=== PATIENT | male | born 1950 | race Caucasian/White ===

== ENCOUNTER → 2016-08-01 | Outpatient (CLI) | payer MEDICARE, MEDICAID ==
[~2016-08-01] MED LIST: ACET325T38 PO; ALPR1T PO; ANXIETY MED; CIPR500T78 PO; CYCL10TA9 PO; DCS100C PO; HYDR-3816 PO; NAPR550T PO; NF-ESOM40C PO; ONDA4TAB2 PO; PHEN200T27 PO; PREG75CA; SILO8CAP PO; SULF1TAB23 PO; TAMS0.4C2 PO; [UNRECOGNIZED DRUG - CODE] IV
[2016-08-01 09:48] LABS: BLOOD UREA NITROGEN 11 MG/DL (7-18); BUN/CREATININE RATIO 12; CREATININE SERUM 0.91 MG/DL (0.60-1.30); GFR ESTIMATED > 60
--- NOTE | 2016-08-01 12:15 | Diagnostic Imaging Report ---
PROCEDURE: CT abdomen and pelvis with contrast. TECHNIQUE: Multiple contiguous axial images were obtained through the abdomen and pelvis after administration of intravenous contrast. INDICATION: Mid abdominal pain. 100 mL of Omnipaque 350 is administered intravenously. FINDINGS: When compared to 10/12/2013, similar subsegmental scarring in the left lung base is seen. The liver demonstrate diffuse steatosis. Surgical clips near the left hepatic lobe undersurface area is seen. Correlate with surgical history. The gallbladder, the pancreas, the spleen, and the adrenals demonstrate no significant abnormality. The kidneys have symmetric enhancement and contrast excretion. There is a fat density lesion in the lower pole of the left kidney measuring 1.3 cm similar to the previous exam compatible with angiomyolipoma. No hydronephrosis. The abdominal aorta is normal in caliber. Normal variation of direct origin of the left gastric artery from the abdominal aorta is seen. There is a tiny fat-containing umbilical hernia. Small to moderate amounts of fecal material seen in the colon. The appendix is normal. The urinary bladder demonstrates mild wall thickening. Correlate for possible cystitis. The osseous structures demonstrate mild degenerative changes in the lumbar spine and SI joints. IMPRESSION: 1. Diffuse hepatic steatosis. 2. Tiny fat-containing hernia. 3. Mild urinary bladder wall thickening. Correlate for possible cystitis. Dictated by: Dictated on workstation # [id number]
== END ==
LOC: RAD 09:17
PROVIDERS: ATTEND Surgery
DX: K76.0 Fatty (change of) liver, not elsewhere classified (principal); N32.9 Bladder disorder, unspecified
CPT/HCPCS: 36415; 74177; 82565; 84520

== ENCOUNTER → 2018-05-21 | Outpatient (CLI) | payer MEDICARE, MEDICAID ==
--- NOTE | 2018-05-21 10:51 | Diagnostic Imaging Report ---
INDICATION: 67-year-old male with osteoarthritis and elbow fracture as adult. Personal risk factors at high risk for osteoporosis. History of colon cancer. History of long-term proton pump inhibitor use. COMPARISON: None. FINDINGS: AP Spine L1-L4: [BMD (g/cm2): 1.174] [T-Score: -0.5] [Z-Score: -0.8] [BMD Previous: na] [BMD % Change: na] LT Hip Neck: [BMD (g/cm2): 0.983] [T-Score: -0.7] [Z-Score: 0.0] LT Hip Total: [BMD (g/cm2):1.157] [T-Score:0.4] [Z-Score: 0.6] [BMD Previous: na] [BMD % Change: na] RT Hip Neck: [BMD (g/cm2):0.928] [T-Score:-1.1] [Z-Score:-0.4] RT Hip Total: [BMD (g/cm2):1.136] [T-score:0.2] [Z-Score:0.4] [BMD Previous:na] [BMD % Change:na] *Indicates significant change from prior examination based on 95% confidence level. World Health Organization criteria for BMD interpretation classify patients as Normal (T-score at or above -1.0), Osteopenic (T-score between -1.0 and -2.5) or Osteoporotic (T-score at or below -2.5). LIMITATIONS AND MODIFICATION: None. FRACTURE RISK (FRAX SCORE): The ten year probability of (%): Major Osteoporotic Fracture: [5.5] Hip Fracture: [0.7] IMPRESSION: 1. Osteopenia (Low bone mass). 2. Baseline examination. 3. See below National Osteoporosis Foundation guidelines on when to potentially initiate pharmacologic therapy. Based on the National Osteoporosis Foundation Guidelines, pharmacologic treatment should be initiated in any of the following, unless clinical conditions suggest otherwise: * Any patient with prior fragility fracture of the hip or vertebrae. A spine fracture indicates 5X risk for subsequent spine fracture and 2X risk for subsequent hip fracture. * Osteoporosis (T-score <-2.5). * Postmenopausal women and men age 50 and older with low bone mass/osteopenia (T-score between -1.0 and -2.5) by DXA and 10-year major osteoporotic fracture greater than 20% or a 10-year probability of hip fracture greater than 3%. These fracture risks are supplied above in the FRAX score, if applicable. * Clinician judgment and/or patient preferences may indicate treatment for people with 10-year fracture probabilities above or below these levels. Dictated by: Dictated on workstation # [id number]
== END ==
LOC: RAD 07:32
PROVIDERS: ATTEND Nurse Practitioner Community Health
DX: M85.80 Other specified disorders of bone density and structure, unspecified site (principal); Z91.89 Other specified personal risk factors, not elsewhere classified; Z85.038 Personal history of other malignant neoplasm of large intestine; Z97.8 Presence of other specified devices
CPT/HCPCS: 77080

== ENCOUNTER 2018-09-18 22:12 | Emergency (ER) | payer MEDICARE, MEDICAID ==
[~2018-09-18] VITALS: Ht 185.4 cm; Wt 99.8 kg
[2018-09-18] MEDS ORDERED: NS IV 1000 ML 1,000 ML IV ONE (23:00)
[2018-09-18 23:07] LABS: BASOPHILS % (AUTO) 0 % (0-10); EOSINOPHILS # (AUTO) 0.1 10^3/uL (0.0-0.3); EOSINOPHILS % (AUTO) 2 % (0-10); HEMATOCRIT 39 % (40-54); HEMOGLOBIN 13.4 G/DL (13.3-17.7); LYMPHOCYTES # (AUTO) 2.3 X 10^3 (1.0-4.0); LYMPHOCYTES % (AUTO) 36 % (12-44); MEAN CORPUSCULAR HEMOGLOBIN 29 PG (25-34); MEAN CORPUSCULAR HGB CONC 35 G/DL (32-36); MEAN CORPUSCULAR VOLUME 84 FL (80-99); MEAN PLATELET VOLUME 10.1 FL (7.4-10.4); MONOCYTES # (AUTO) 0.6 X 10^3 (0.0-1.0); MONOCYTES % (AUTO) 10 % (0-12); NEUTROPHILS # (AUTO) 3.3 X 10^3 (1.8-7.8); NEUTROPHILS % (AUTO) 52 % (42-75); PLATELET COUNT 239 10^3/uL (130-400); RED CELL DISTRIBUTION WIDTH 13.1 % (10.0-14.5); WHITE BLOOD COUNT 6.4 10^3/uL (4.3-11.0)
[2018-09-18 23:20] LABS: ALANINE AMINOTRANSFERASE 22 U/L (0-55); ALBUMIN 3.6 GM/DL (3.2-4.5); ALKALINE PHOSPHATASE 75 U/L (40-136); BILIRUBIN,TOTAL 0.3 MG/DL (0.1-1.0); BUN/CREATININE RATIO 13; CARBON DIOXIDE 24 MMOL/L (21-32); CHLORIDE 105 MMOL/L (98-107); GFR ESTIMATED > 60; GLUCOSE 119 MG/DL (70-105); POTASSIUM 3.8 MMOL/L (3.6-5.0); SODIUM 141 MMOL/L (135-145); TOTAL PROTEIN 6.5 GM/DL (6.4-8.2)
--- NOTE | 2018-09-18 23:29 | ED General ---
General Chief Complaint: Dizziness/Syncope Stated Complaint: DIZZINESS Nursing Triage Note: PT AMB TO [facility] WITH COMPLAINT OF DIZZINESS. 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 STATES THE DIZZINESS COMES AND GOES BUT IS WORSE WHEN LAYING DOWN. Nursing Sepsis Screen: No Definite Risk Source of Information: Patient Exam Limitations: No Limitations History of Present Illness Date Seen by Provider: September 18, 2018 Time Seen by Provider: 23:11 Initial Comments Here with report of dizziness this been intermittent over the last [address] ates that it comes and goes but worse when laying down. Drink a bottle of Powerade today and that helped. Have the dizziness again tonight so presented for evaluation. Denies recent illness but states that he may have had some allergies recently and his left ear feels a little clogged. Denies chest pain or breathing problems. Has had this intermittently for many years. No problems with walking. Timing/Duration: 1-2 Days, Intermittent Severity: Moderate Modifying Factors: worse with Other (laying down) Associated Systoms: No Chest Pain, No Cough, No Fever/Chills, No Headaches, No Nausea/Vomiting, No Shortness of Air, No Weakness Allergies and Home Medications Allergies Coded Allergies: fluoxetine (Unverified Allergy, Intermediate, 08/14/14) mirtazapine (Verified Allergy, Mild, 10/11/13) Home Medications Acetaminophen 325 Mg Tablet, 325 MG PO Q4H PRN for FEVER, (Reported) NEEDED FOR FEVER Alprazolam 1 Mg Tablet, 1 MG PO BID, (Reported) Docusate Sodium 100 Mg Capsule, 100 MG PO DAILY PRN for CONSTIPATION, (Reported) NEEDED FOR CONSTIPATION Gentamicin/Sodium Chloride 90 Mg/100 Ml Piggyback, 560 MG IV DAILY Prescribed by: WHITNEY CHAPMAN on 10/15/13 1027 Hydrocodone Bit/Acetaminophen 1 Tab Tablet, 1 TAB PO Q6H PRN for PAIN Prescribed by: SAVANNAH VALLE on 08/14/14 0533 Silodosin 8 Mg Capsule, 8 MG PO DAILY Prescribed by: WHITNEY CHAPMAN on 10/15/13 1027 Patient Home Medication List Home Medication List Reviewed: Yes Review of Systems Review of Systems Constitutional: see HPI; No chills, No fever EENTM: see HPI Respiratory: see HPI Cardiovascular: no symptoms reported Gastrointestinal: no symptoms reported Psychiatric/Neurological: See HPI Past Mxvvcqs-Llrxum-Plybfg Hx Past Med/Social Hx: Reviewed Nursing Past Med/Soc Hx Patient Social History Alcohol Use: Denies Use Recreational Drug Use: No Smoking Status: Former Smoker Recent Foreign Travel: No Contact w/Someone Who Travel: No Recent Infectious Disease Expo: No Immunizations Up To Date Tetanus Booster (TDap): Unknown PED Vaccines UTD: Yes Past Medical History Surgeries: Yes (UMBILICAL HERNIA, HIATAL HERNIA) Respiratory: No Cardiac: No Neurological: No Reproductive Disorders: No Sexually Transmitted Disease: No Bladder Infection Gastrointestinal: Yes (fatty liver) Gastroesophageal Reflux, Diverticulosis, Hiatal Hernia Musculoskeletal: Yes Arthritis Endocrine: No Cancer: No Psychosocial: Yes PTSD Integumentary: No Blood Disorders: No Family Medical History Reviewed Nursing Family Hx Heart Disease, CAD Under 55 Years Old, Hypertension Physical Exam Vital Signs Vital Signs - First Documented 09/18/18 22:26 Pulse 74 Resp 19 B/P (MAP) 136/76 (96) Pulse Ox 95 O2 Delivery Room Air Capillary Refill : Less Than 3 Seconds Height, Weight, BMI Height: 6'1.00" Weight: 220lbs. 2.0oz. [id number]; BMI Method:Stated General Appearance: No Apparent Distress, WD/WN HEENT: PERRL/EOMI, Pharynx Normal, Other (no vertical or horizontal nystagmus. Left TM slightly bulging with clear fluid.) Neck: Non Tender, Supple Respiratory: Lungs Clear, Normal Breath Sounds Cardiovascular: Regular Rate, Rhythm, No Murmur Gastrointestinal: Non Tender, Soft Back: Normal Inspection, No CVA Tenderness, No Vertebral Tenderness Extremity: Normal Range of Motion, Non Tender Neurologic/Psychiatric: Alert, Oriented x3, No Motor/Sensory Deficits, Normal Mood/Affect, process inspector II-XII Norm as Tested Skin: Normal Color, Warm/Dry Procedures/Interventions Patient Education: Explained Benefits, Explained Risks, Pt. Ack. Understanding Breath Sounds per Auscultation: Clear Heart Sounds per Auscultation: Regular Airway Exam: Mouth opens >2 fingers, Neck Full Range of Motion, Visulation of Uvula Sedation Adminstration Time: 0510 Re-examination Time: 0530 Progress/Results/Core Measures Suspected Sepsis Recent Fever Within 48 Hours: No Infection Criteria Present: None New/Unexplained Altered Menta: No Sepsis Screen: No Definite Risk SIRS Temperature: Pulse: 74 Respiratory Rate: 19 Laboratory Tests 09/18/18 22:35: White Blood Count 6.4 Blood Pressure 136 /76 Mean: 96 Laboratory Tests 09/18/18 22:35: Creatinine 1.00, Platelet Count 239, Total Bilirubin 0.3 Results/Orders Lab Results Laboratory Tests Test 09/18/18 00:08 09/18/18 22:35 Range/Units Urine Color YELLOW Urine Clarity CLEAR Urine pH 6 5-9 Urine Specific [place] 1.020 1.016-1.022 Urine Protein NEGATIVE NEGATIVE Urine Glucose (UA) NEGATIVE NEGATIVE Urine Ketones NEGATIVE NEGATIVE Urine Nitrite NEGATIVE NEGATIVE Urine Bilirubin NEGATIVE NEGATIVE Urine Urobilinogen 1 NORMAL MG/DL Urine Leukocyte Esterase 1+ H NEGATIVE Urine RBC (Auto) NEGATIVE NEGATIVE Urine RBC NONE /HPF Urine WBC 0-2 /HPF Urine Squamous Epithelial Cells 0-2 /HPF Urine Renal Epithelial Cells 0-2 /HPF Urine Crystals NONE /LPF Urine Bacteria FEW H /HPF Urine Casts NONE /LPF Urine Mucus SMALL H /LPF Urine Culture Indicated NO White Blood Count 6.4 4.3-11.0 10^3/uL Red Blood Count 4.60 4.35-5.85 10^6/uL Hemoglobin 13.4 13.3-17.7 G/DL Hematocrit 39 L 40-54 % Mean Corpuscular Volume 84 80-99 FL Mean Corpuscular Hemoglobin 29 25-34 PG Mean Corpuscular Hemoglobin Concent 35 32-36 G/DL Red Cell Distribution Width 13.1 10.0-14.5 % Platelet Count 239 130-400 10^3/uL Mean Platelet Volume 10.1 7.4-10.4 FL Neutrophils (%) (Auto) 52 42-75 % Lymphocytes (%) (Auto) 36 12-44 % Monocytes (%) (Auto) 10 0-12 % Eosinophils (%) (Auto) 2 0-10 % Basophils (%) (Auto) 0 0-10 % Neutrophils # (Auto) 3.3 1.8-7.8 X 10^3 Lymphocytes # (Auto) 2.3 1.0-4.0 X 10^3 Monocytes # (Auto) 0.6 0.0-1.0 X 10^3 Eosinophils # (Auto) 0.1 0.0-0.3 10^3/uL Basophils # (Auto) 0.0 0.0-0.1 10^3/uL Sodium Level 141 135-145 MMOL/L Potassium Level 3.8 3.6-5.0 MMOL/L Chloride Level 105 98-107 MMOL/L Carbon Dioxide Level 24 21-32 MMOL/L Anion Gap 12 5-14 MMOL/L Blood Urea Nitrogen 13 7-18 MG/DL Creatinine 1.00 0.60-1.30 MG/DL Estimat Glomerular Filtration Rate > 60 BUN/Creatinine Ratio 13 Glucose Level 119 H 70-105 MG/DL Calcium Level 9.0 8.5-10.1 MG/DL Corrected Calcium 9.3 8.5-10.1 MG/DL Total Bilirubin 0.3 0.1-1.0 MG/DL Aspartate Amino Transf (AST/SGOT) 37 H 5-34 U/L Alanine Aminotransferase (ALT/SGPT) 22 0-55 U/L Alkaline Phosphatase 75 40-136 U/L C-Reactive Protein High Sensitivity 0.34 0.00-0.50 MG/DL Total Protein 6.5 6.4-8.2 GM/DL Albumin 3.6 3.2-4.5 GM/DL My Orders Orders - SAVANNAH VALLE MD Ed Iv/Invasive Line Start (09/18/18 23:00) Ns Iv 1000 Ml (Sodium Chloride 0.9%) (09/18/18 23:00) Cbc With Automated Diff (09/18/18 23:00) Comprehensive Metabolic Panel (09/18/18 23:00) Hs C Reactive Protein (09/18/18 23:00) Ua Culture If Indicated (09/18/18 23:00) Ekg Tracing (09/18/18 23:00) Meclizine Tablet (Antivert Tablet) (09/18/18 23:30) Dexamethasone Injection (Decadron Inject (09/18/18 23:30) Cefdinir Capsule (Omnicef Capsule) (09/19/18 01:00) Medications Given in ED Current Medications Medications Dose Ordered Sig/Floyd Route Start Time Stop Time Status Last Admin Dose Admin Dexamethasone Sodium Phosphate 10 mg ONCE ONCE IV 09/18/18 23:30 09/18/18 23:31 DC 09/18/18 23:35 10 MG Meclizine HCl 25 mg ONCE ONCE PO 09/18/18 23:30 09/18/18 23:31 DC 09/18/18 23:26 25 MG Sodium Chloride 1,000 ml @ 0 mls/hr Q0M ONCE IV 09/18/18 23:00 09/18/18 23:02 DC 09/18/18 23:26 999 MLS/HR Vital Signs/I&O 09/18/18 22:26 Pulse 74 Resp 19 B/P (MAP) 136/76 (96) Pulse Ox 95 O2 Delivery Room Air Capillary Refill : Less Than 3 Seconds Blood Pressure Mean: 96 Progress Note : Progress Note Seen and evaluated. IV, labs, UA, normal saline 1 L bolus, meclizine 25 mg by mouth. Given the fullness of the left ear and concerns related to recent allergies, Decadron 10 mg IV ordered. Monitor patient. 0055: Overall much improved. There is concerns for urinary tract infection. Given that and the left ear problem, we will go ahead and initiate cefdinir 300 mg by mouth continue that for a week. Discharged home with return precautions. Patient verbalize understanding instructions and agreement with plan. ECG Initial ECG Impression Date: September 18, 2018 Initial ECG Impression Time: 22:44 Initial ECG Rate: 65 Initial ECG Rhythm: Normal Sinus Initial ECG Impression: Normal Comment Sinus rhythm with normal axis. No evidence of ST elevation ID. Similar to previous of 02/16/13. Interpreted by me. Departure Impression Primary Impression: Vertigo Additional Impressions: Urinary tract infection Qualified Codes: N30.00 - Acute cystitis without hematuria Left ear pain Disposition: 01 HOME, SELF-CARE Condition: Improved Departure-Patient Inst. Decision time for Depature: 00:56 Referrals: [facility]JAROD (PCP) Primary Care Physician SAMMY ARZATE (Family) Primary Care Physician Patient Instructions: Vertigo (a Type of Dizziness) (DC), Urinary Tract Infection, Adult (DC) Add. Discharge Instructions: All discharge instructions reviewed with patient and/or family. Voiced understanding. You may use [id number] meclizine 25 mg every 8 hours as needed for dizziness. Take other medications as directed. Drink plenty of fluids and eat a normal diet. Follow-up with your DrBlue in a few days for recheck. Return for worsening, fever, vomiting, weakness, breathing problems, increased dizziness or other concerns as needed. Scripts Cefdinir (Cefdinir) 300 Mg Capsule 300 MG PO BID, #14 CAP 0 Refills Prov: [place],SAVANNAH D MD 09/19/18 SAVANNAH VALLE MD September 18, 2018 23:29
[2018-09-18] MEDS ORDERED: DEXAMETHASONE 10 MG/ML (DECADRON) 1 ML VIAL IV ONE (23:30)
[2018-09-18] MEDS ORDERED: MECLIZINE 25 MG (ANTIVERT) TAB PO ONE (23:30)
[2018-09-19 00:32] LABS: CLARITY,URINE CLEAR; COLOR,URINE YELLOW; PH,URINE 6 (5-9); PROTEIN,URINE NEGATIVE (NEGATIVE)
[2018-09-19 00:33] LABS: BACTERIA,URINE FEW /HPF; BILIRUBIN,URINE NEGATIVE (NEGATIVE); GLUCOSE, URINE (UA) NEGATIVE (NEGATIVE); KETONES,URINE NEGATIVE (NEGATIVE); LEUKOCYTE ESTERASE ,URINE 1+ (NEGATIVE); NITRITE,URINE NEGATIVE (NEGATIVE); RENAL EPITHELIAL CELLS,URINE 0-2 /HPF; SQUAMOUS EPITHELIAL CELL,UR 0-2 /HPF; UROBILINOGEN,URINE 1 MG/DL (NORMAL); WBC,URINE 0-2 /HPF
[2018-09-19] MEDS ORDERED: CEFD300C3 PO (00:57)
[2018-09-19] MEDS ORDERED: CEFDINIR 300 MG (OMNICEF) CAP PO ONE (01:00)
--- OUTSIDE RECORDS SUMMARY | 2018-09-19 01:11 | XMS REPORT | Clinical Summary ---
Author Author [facility] Organization [facility] Address Unknown Phone Unavailable Care Team Providers [employer] Name Role Phone Doron Coyle MD Unavailable Rupinder Bhakta APRN PCP Larry Coburn MD Unavailable Nasir Pastrana MD Unavailable Unavailable Sasha Mirza RN Unavailable Unavailable Mich Gomez MD Unavailable Audrey Gomez RN Unavailable Unavailable Bin Mcfadden RN Unavailable Unavailable Cecilia Pringle RN Unavailable Unavailable UtFaby vela Unavailable Vanessa Thomas RN Unavailable Unavailable Shin Joyce MD Unavailable Unavailable Sybil Dill Unavailable Unavailable Yair Miles PhD Unavailable Source Comments Some departments are not documenting in the electronic medical record. If you d o not see the information that you expected, contact Release of Information in [facility] Information Management department at [phone] for further assistan ce in locating additional records.[facility] Allergies Comments Active Allergy Reactions Severity Noted Date Aspirin NAUSEA ONLY Low 11/11/2014 Gabapentin HEADACHE, Low 11/11/2014 NAUSEA ONLY, DIZZINESS Pregabalin HEADACHE, High 11/11/2014 DIZZINESS, SYNCOPE Milk NAUSEA AND 07/27/2013 VOMITING Perfumes EYE 07/27/2013 IRRITATION, SNEEZING Mirtazapine HALLUCINATION 09/17/2013 S Medications End Date Status Medication Sig Dispensed Refills Start Date Active ALPRAZolam (XANAX) 1 mg Take 1 mg by 0 tablet mouth twice daily. Active esomeprazole DR(+) Take 40 mg by 0 (NEXIUM) 40 mg capsule mouth at bedtime daily. Active SILODOSIN (RAPAFLO PO) Take by 0 mouth. Active ALBUTEROL IN Inhale by 0 mouth. Active OXYCODONE HCL (OXYCODONE Take by 0 PO) mouth. Active electrolyte GUT PEG Use as 4000 mL 0 (NULYTELY, COLYTE, directed for 8 GAVILYTE-N) 420 gram oral split dose solution colonoscopy prep. Active Problems Problem Noted Date Adenomatous colon polyp 05/12/2014 Overview: Multiple adenomatous colon polyps removed with colonoscopies 05/2013 and 08/2013 Dysphagia 04/12/2014 Neuropathic pain 12/22/2013 Pain of upper abdomen 12/22/2013 GERD (gastroesophageal reflux disease) 09/17/2013 S/P Bob fundoplication (without gastrostomy tube) procedure 09/17/2013 Hiatal hernia 07/27/2013 Overview: 62 year old male with hiatal hernia, GERD and dysphagia to solids. L ast Assessment & Plan: Plan: 1. Esophageal Mannometry studies ordered 2. Barium esophagram ordered 3. Will plan for Bob Fundiplication (robotic approach) after above studies to repair hiatal hernia S/P umbilical hernia repair, follow-up exam 04/15/2012 Resolved Problems Problem Noted Date Resolved Date Incarcerated umbilical hernia 04/08/2012 04/15/2012 Family History Medical History Relation Name Comments Arthritis-osteo Brother Asthma Brother Cancer Brother Liver Cancer-Colon Brother Diabetes Brother Hypertension Brother Cancer-Colon Brother Cancer-Colon Brother Cancer Father Cancer-Prostate Father Heart Failure Father High Cholesterol Father High Cholesterol Mother Arthritis-osteo Sister Relation Name Status Comments Brother Brother Brother Alive Father Mother Sister Social History Date Tobacco Use Types Packs/Day Years Used Never Smoker Smokeless Tobacco: Never Used Alcohol Use Drinks/Week oz/Week Comments No Sex Assigned at Date Recorded Not on file Industry Job Start Date Occupation Not on file Not on file Not on file Travel End Travel History Travel Start No recent travel history available. Last Filed Vital Signs Time Taken Vital Sign Reading 03/05/2018 2:48 PM [employer] Blood Pressure 169/83 03/05/2018 2:48 PM [employer] Pulse 70 03/05/2018 2:48 PM [employer] Temperature 36.4 C (97.6 F) 03/05/2018 2:48 PM [employer] Respiratory Rate 12 04/10/2015 11:36 AM [employer] Oxygen Saturation 95% - Inhaled Oxygen - Concentration 03/05/2018 2:48 PM [employer] Weight 100.2 kg (221 lb) 03/05/2018 2:48 PM [employer] Height 186.7 cm (6' 1.5") 03/05/2018 2:48 PM [employer] Body Mass Index 28.76 Plan of Treatment Health Maintenance Due Date Last Done Comments HEPATITIS C SCREENING 1950 PHYSICAL (COMPREHENSIVE) 1957 EXAM DTAP/TDAP VACCINES (1 - 1968 Tdap) SHINGLES RECOMBINANT 2000 VACCINE (1 of 2) PNEUMONIA (PCV13/PPSV23) 12/03/2015 VACCINES (1 of 2 - PCV13) INFLUENZA VACCINE 01/26/2019 COLORECTAL CANCER 03/25/2028 03/25/2018, 04/10/2015, 12/29/2014, SCREENING Additional history exists Results Not on filefrom Last 3 Months Insurance Type Payer Benefit Subscriber ID Effective Phone Address Plan / Dates Group Medicare MEDICARE MEDICARE xxxxxxxxxxx [id number] PART A AND resent B Advance Directives Patient has advance care planning documents, and code status on file. For more i nformation, please contact: [facility] [address] [place] [address] Date Inactivated Comments Code Status Date Activated 09/18/2013 2:51 PM Full Code 09/17/2013 11:52 AM Provider has discussed Code Status Yes w/Patient or Family? 04/12/2012 5:10 AM Full Code 04/10/2012 4:27 PM Provider has discussed Code Status Yes w/Patient or Family?
--- OUTSIDE RECORDS SUMMARY | 2018-09-19 01:12 | XMS REPORT ---
Author Author Migration, Doctor Organization [facility] Address Unknown Phone Unavailable Care Team Providers Care Industrial Designer Name Role Phone Migration, Doctor Unavailable Unavailable PROBLEMS Type Condition ICD9-CM Code LQN35-JN Code Onset Dates Condition Status SNOMED Code Problem Other care home (current) drug therapy Z79.899 Active 643125093 Problem Encounter for therapeutic drug level monitoring Z51.81 Active 121140483 Problem 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 Active 977874588 Problem Benign prostatic hyperplasia, unspecified whether lower urinary tract symptoms present N40.0 Active 969651495 Problem Screening, lipid Z13.220 Active 538439600 Problem Shortness of breath R06.02 Active 990768566 Problem 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 Active 235903936 Problem Osteoarthritis, unspecified osteoarthritis type, unspecified site M19.90 Active 155593609 Problem Other chronic pain G89.29 Active 30908208 Problem Gastroesophageal reflux disease without esophagitis K21.9 Active 381177026 ALLERGIES No Information ENCOUNTERS Encounter Location Date Diagnosis [place] [id number] [place] [address] Oct, [place] [address] [place] [id number] [place] [address] Jul, Osteoarthritis, unspecified osteoarthritis type, unspecified site M19.90 [place] [address] [place] [id number] [place] [address] Jun, Osteoarthritis, unspecified osteoarthritis type, unspecified site M19.90 [place] [address] [place] [id number] [place] [address] Jun, [place] [address] [place] [id number] [place] [address] May, Osteoarthritis, unspecified osteoarthritis type, unspecified site M19.90 [place] [address] [address] May, [place] [address] [place] [id number] [place] [address] May, [place] [address] [address] May, Osteopenia determined by x-ray M85.80 ; Shortness of breath R06.02 and Screening, lipid Z13.220 [place] [address] [place] [address] [address] May, [place] [address] [place] [id number] [place] [address] Apr, Osteoarthritis, unspecified osteoarthritis type, unspecified site M19.90 [place] [address] [address] Apr, 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 [place] [address] [place] [id number] [place] [address] Apr, [place] [address] [place] [id number] [place] [address] Apr, Osteoarthritis, unspecified osteoarthritis type, unspecified site M19.90 [place] [address] [address] Mar, [place] [address] [place] [id number] [place] [address] Mar, Encounter for Medicare annual wellness exam Z00.00 ; Osteoarthritis, unspecified osteoarthritis type, unspecified site M19.90 ; Benign prostatic hyperplasia, unspecified whether lower urinary tract symptoms present N40.0 ; 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 and At high risk for osteoporosis Z91.89 [place] [address] [place] [id number] [address] Mar, Osteoarthritis, unspecified osteoarthritis type, unspecified site M19.90 [place] [address] [address] Feb, [facility] [address] [place] [address] [id number] [place] [address] Feb, Osteoarthritis, unspecified osteoarthritis type, unspecified site M19.90 [facility] [address] [id number] [address] 16 Jan, 2018 [facility] [address] [place] [id number] [place] [address] Jan, Osteoarthritis, unspecified osteoarthritis type, unspecified site M19.90 [facility] [address] [place] [id number] [place] [address] 08 Jan, 2018 Low back pain M54.5 and Other chronic pain G89.29 [facility] [address] [place] [id number] [place] [address] Dec, Osteoarthritis, unspecified osteoarthritis type, unspecified site M19.90 [facility] [address] [place] [id number] [place] [address] Dec, [facility] [address] [place] [id number] [place] [address] Nov, Osteoarthritis, unspecified osteoarthritis type, unspecified site M19.90 [facility] [address] [address] Nov, Shortness of breath R06.02 [facility] [address] [address] Nov, [facility] [id number] [place] [address] Nov, [facility] [address] [place] [id number] [place] [address] Oct, Osteoarthritis, unspecified osteoarthritis type, unspecified site M19.90 [facility] [address] [place] [id number] [place] [address] Sep, [facility] [address] [address] Sep, Osteoarthritis, unspecified osteoarthritis type, unspecified site M19.90 [facility] [address] [place] [id number] [place] [address] August, Other chronic pain G89.29 and Other specified personal risk factors, not elsewhere classified Z91.89 [place] [address] [place] [id number] [place] [address] August, Osteoarthritis, unspecified osteoarthritis type, unspecified site M19.90 [place] [address] [place] [id number] [place] [address] Jul, Osteoarthritis, unspecified osteoarthritis type, unspecified site M19.90 [place] [address] [place] [id number] [place] [address] Jun, Osteoarthritis, unspecified osteoarthritis type, unspecified site M19.90 [place] [address] [place] [id number] [place] [address] Jun, [place] [address] [place] [id number] [place] [address] Jun, Osteoarthritis, unspecified osteoarthritis type, unspecified site M19.90 [place] [address] [place] [id number] [place] [address] May, [place] [address] [place] [id number] [place] [address] May, Benign prostatic hyperplasia, unspecified whether lower urinary tract symptoms present N40.0 [place] [address] [place] [id number] [place] [address] May, Osteoarthritis, unspecified osteoarthritis type, unspecified site M19.90 [place] [address] [place] [id number] [place] [address] May, [place] [address] [place] [id number] [place] [address] Apr, Other chronic pain G89.29 ; Family history of diabetes mellitus Z83.3 ; Forgetfulness R68.89 ; History of multiple concussions Z87.820 ; Gastroesophageal reflux disease without esophagitis K21.9 and Screening, lipid Z13.220 [place] [address] [address] Apr, Other chronic pain G89.29 ; Forgetfulness R68.89 ; History of multiple concussions Z87.820 ; Gastroesophageal reflux disease without esophagitis K21.9 ; Screening, lipid Z13.220 and Family history of diabetes mellitus Z83.3 [place] [address] [place] [id number] [place] [address] Apr, Osteoarthritis, unspecified osteoarthritis type, unspecified site M19.90 [place] [address] [place] [id number] [place] [address] Apr, Osteoarthritis, unspecified osteoarthritis type, unspecified site M19.90 [place] [address] [place] [id number] [place] [address] Apr, [place] [address] [place] [id number] [place] [address] Mar, Osteoarthritis, unspecified osteoarthritis type, unspecified site M19.90 [place] [address] [place] [address] [address] Feb, Osteoarthritis, unspecified osteoarthritis type, unspecified site M19.90 [place] [address] [place] [id number] [place] [address] Jan, Osteoarthritis, unspecified osteoarthritis type, unspecified site M19.90 [place] [address] [place] [id number] [place] [address] Dec, Osteoarthritis, unspecified osteoarthritis type, unspecified site M19.90 [place] [address] [place] [id number] [place] [address] Dec, [place] [address] [address] Nov, Encounter for screening for lipid disorder Z13.220 [facility] [address] [place] [id number] [place] [address] Nov, Osteoarthritis, unspecified osteoarthritis type, unspecified site M19.90 ; Encounter for screening for lipid disorder Z13.220 and Other chronic pain G89.29 [place] [address] [place] [id number] [place] [address] Nov, Osteoarthritis, unspecified osteoarthritis type, unspecified site M19.90 [place] [address] [place] [id number] [place] [address] Nov, [place] [address] [place] [id number] [place] [address] Nov, [place] [address] [place] [id number] [place] [address] Oct, Osteoarthritis, unspecified osteoarthritis type, unspecified site M19.90 [place] [address] [address] Oct, Gastroesophageal reflux disease without esophagitis K21.9 [place] [address] [address] Sep, Osteoarthritis, unspecified osteoarthritis type, unspecified site M19.90 [place] [address] [address] August, Osteoarthritis, unspecified osteoarthritis type, unspecified site M19.90 [place] [address] [address] August, Osteoarthritis, unspecified osteoarthritis type, unspecified site M19.90 [place] [address] [address] Jul, Osteoarthritis, unspecified osteoarthritis type, unspecified site M19.90 and Gastroesophageal reflux disease without esophagitis K21.9 [facility] [address] [address] Jul, Osteoarthritis, unspecified osteoarthritis type, unspecified site M19.90 [facility] [address] [place] [id number] [place] [address] Jun, Ventral hernia without obstruction or gangrene K43.9 [facility] [address] [place] [address] Jun, Osteoarthritis, unspecified osteoarthritis type, unspecified site M19.90 [facility] [address] [place] [id number] [place] [address] May, [facility] [address] [place] [id number] [place] [address] May, Osteoarthritis, unspecified osteoarthritis type, unspecified site M19.90 [facility] [address] [place] [address] Apr, Osteoarthritis, unspecified osteoarthritis type, unspecified site M19.90 [facility] [address] [address] Mar, [facility] [address] [place] [address] Mar, Osteoarthritis, unspecified osteoarthritis type, unspecified site M19.90 and Lumbago with sciatica, left side M54.42 [facility] [address] [address] Feb, [facility] [id number] [place] [address] Feb, [facility] [address] [place] [address] Feb, Osteoarthritis, unspecified osteoarthritis type, unspecified site M19.90 [facility] [address] [address] Feb, [facility] [address] [place] [id number] [place] [address] 17 Feb, 2016 Low back pain M54.5 and Other chronic pain G89.29 [place] [address] [place] [id number] [place] [address] Feb, [facility] [address] [place] [id number] [place] [address] Jan, [place] [address] [address] Jan, [facility] [address] [address] 24 Dec, 2015 Lumbago with sciatica, left side M54.42 [place] [address] [place] [id number] [place] [address] 15 Dec, 2015 Irritable bowel syndrome with both constipation and diarrhea K58.0 ; Screening, lipid Z13.220 ; Nocturia R35.1 ; Family history of diabetes mellitus Z83.3 and Dysuria R30.0 [place] [address] [place] [id number] [place] [address] 14 Dec, 2015 Irritable bowel syndrome with both constipation and diarrhea K58.0 ; Nocturia R35.1 ; Family history of diabetes mellitus Z83.3 ; Dysuria R30.0 and Screening, lipid Z13.220 [place] [address] [place] [id number] [place] [address] Dec, [place] [address] [place] [id number] [place] [address] 07 Dec, 2015 [facility] [address] [place] [id number] [place] [address] 2015 Pain with swallowing R13.10 [facility] [address] [place] [id number] [place] [address] Nov, [place] [address] [place] [id number] [place] [address] Nov, [facility] [address] [place] [address] [id number] [place] [address] Oct, [facility] [address] [place] [id number] [place] [address] Sep, [facility] [address] [place] [id number] [place] [address] Sep, Osteoarthritis, unspecified osteoarthritis type, unspecified site M19.90 [facility] [address] [place] [id number] [place] [address] Sep, Back pain M54.9 [facility] [address] [address] Sep, Lumbago with sciatica, right side M54.41 and Bilateral impacted cerumen H61.23 [facility] [address] [place] [id number] [place] [address] Sep, [facility] [address] [place] [address] [id number] [place] [address] August, Bronchitis J40 [facility] [address] [place] [id number] [place] [address] August, [facility] [address] [place] [address] [id number] [place] [address] August, [facility] [address] [place] [id number] [place] [address] August, [facility] [address] [place] [id number] [place] [address] Jul, [facility] [address] [place] [address] [id number] [place] [address] Jul, Back pain M54.9 [facility] [address] [place] [id number] [place] [address] Jun, Degenerative disc disease at L5-S1 level M51.36 and Bronchitis J40 [facility] [address] [address] [address] Jun, [facility] [address] [address] May, [facility] [address] [address] Apr, [facility] [id number] [place] [address] Mar, [facility] [address] [place] [id number] [place] [address] Mar, [facility] [address] [place] [address] [id number] [place] [address] Feb, [facility] [address] [place] [id number] [place] [address] Jan, [facility] [address] [place] [id number] [place] [address] Dec, [facility] [address] [address] Nov, [facility] [address] [place] [id number] [place] [address] Oct, [facility] [address] [address] Oct, Right shoulder pain 719.41 [facility] [address] [address] Sep, [facility] [address] [address] Sep, Vertigo 780.4 and Elbow fracture, right 812.40 [facility] [address] [address] Sep, [facility] [address] [address] August, [facility] [address] [place] [id number] [address] 14 Jul, 2014 [facility] [place] [facility] [address] [id number] [place] [address] 13 Jul, 2014 [facility] [place] [facility] [address] [id number] [place] [address] 25 Jun, 2014 [facility] [place] [facility] [address] [id number] [place] [address] Jun, [facility] [place] [facility] [address] [id number] [place] [address] Jun, [facility] [place] [facility] [address] [id number] [place] [address] Jun, [facility] [place] [facility] [address] [facility] [id number] [place] [address] Jun, [facility] [place] [facility] [address] [facility] [id number] [place] [address] Jun, [facility] [place] [facility] [address] [facility] [id number] [place] [address] May, [facility] [place] [facility] [address] [place] [id number] [address] May, [facility] [place] [facility] [address] [facility] [id number] [place] [address] May, [facility] [place] [facility] [address] [facility] [id number] [place] [address] May, [facility] [place] [facility] [address] [facility] [id number] [place] [address] May, [facility] [place] [facility] [address] [id number] [place] [address] May, [facility] [place] [facility] [address] [facility] [id number] [address] Apr, [facility] [place] [facility] [address] [facility] [id number] [place] [address] Apr, [facility] [place] [facility] [address] [id number] [place] [address] Apr, [facility] [place] [facility] [address] [id number] [place] [address] Apr, [facility] [place] [facility] [address] [id number] [place] [address] Apr, [facility] [place] [facility] [address] [id number] [place] [address] Apr, [facility] [place] [facility] [address] [id number] [place] [address] Apr, [facility] [place] [facility] [address] [id number] [place] [address] Mar, [facility] [place] [facility] [address] [id number] [place] [address] Mar, [facility] [place] [facility] [address] [id number] [place] [address] Mar, [facility] [place] [facility] [address] [id number] [place] [address] Mar, [facility] [place] [facility] [address] [id number] [place] [address] 31 Mar, 2014 [facility] [place] [facility] [address] [id number] [place] [address] 31 Mar, 2014 [facility] [place] [facility] [address] [id number] [place] [address] 30 Mar, 2014 [facility] [place] [facility] [address] [id number] [place] [address] 30 Mar, 2014 [facility] [place] [facility] [address] [id number] [place] [address] Mar, [facility] [place] [facility] [address] [id number] [place] [address] Mar, [facility] [place] [facility] [address] [id number] [place] [address] Mar, [facility] [place] [facility] [address] [id number] [place] [address] Mar, [facility] [place] [facility] [address] [id number] [place] [address] Mar, [facility] [place] [facility] [address] [id number] [place] [address] Mar, [facility] [place] [facility] [address] [id number] [place] [address] Mar, [facility] [place] [facility] [address] [id number] [place] [address] Feb, [facility] [place] [facility] [address] [id number] [place] [address] Feb, [facility] [place] [facility] [address] [id number] [place] [address] Feb, [facility] [place] [facility] [address] [id number] [place] [address] Feb, [facility] [place] [facility] [address] [id number] [place] [address] Feb, [facility] [place] [facility] [address] [facility] [id number] [place] [address] Feb, [facility] [place] [facility] [address] [id number] [place] [address] Jan, [facility] [place] [facility] [address] [id number] [place] [address] Jan, [facility] [place] [facility] [address] [id number] [place] [address] Jan, [facility] [place] [facility] [address] [id number] [place] [address] Jan, [facility] [place] [facility] [address] [id number] [place] [address] Jan, [facility] [place] [facility] [address] [id number] [place] [address] Jan, [facility] [place] [facility] [address] [id number] [place] [address] Dec, 2013 [facility] [place] [facility] [address] [id number] [place] [address] 29 Dec, 2013 [facility] [place] [facility] [address] [id number] [place] [address] Dec, 2013 [facility] [place] [facility] [address] [id number] [place] [address] Dec, 2013 [facility] [place] [facility] [address] [id number] [place] [address] Dec, 2013 [facility] [place] [facility] [address] [id number] [place] [address] Dec, 2013 [facility] [place] [facility] [address] [id number] [place] [address] Dec, 2013 [facility] [place] [facility] [address] [id number] [place] [address] Dec, 2013 [facility] [place] [facility] [address] [id number] [place] [address] Dec, 2013 [facility] [place] [facility] [address] [id number] [place] [address] Dec, 2013 [facility] [place] [facility] [address] [id number] [place] [address] Dec, 2013 [facility] [place] [facility] [address] [id number] [place] [address] Nov, [facility] [place] [facility] [address] [id number] [place] [address] Nov, [facility] [place] [facility] [address] [id number] [place] [address] Nov, [facility] [place] [facility] [address] [id number] [place] [address] Nov, [facility] [place] [facility] [address] [id number] [place] [address] Nov, [facility] [place] [facility] [address] [id number] [place] [address] Nov, [facility] [place] [facility] [address] [id number] [place] [address] Nov, [facility] [place] [facility] [address] [id number] [place] [address] Nov, [facility] [place] [facility] [address] [id number] [place] [address] Nov, [facility] [place] [facility] [address] [id number] [place] [address] Nov, [facility] [place] [facility] [address] [id number] [place] [address] Oct, [facility] [place] [facility] [address] [id number] [place] [address] Oct, [facility] [place] [facility] [address] [id number] [place] [address] Oct, [facility] [place] [facility] [address] [id number] [place] [address] Oct, [facility] [place] [facility] [address] [id number] [place] [address] Oct, [facility] [place] [facility] [address] [id number] [place] [address] Oct, [facility] [place] [facility] [address] [id number] [place] [address] Oct, [facility] [place] [facility] [address] [id number] [place] [place] [address] Oct, [facility] [place] [facility] [address] [id number] [place] [address] Oct, [facility] [place] [facility] [address] [id number] [place] [address] Oct, [facility] [place] [facility] [address] [id number] [place] [address] Oct, [facility] [place] [facility] [address] [id number] [place] [address] Oct, [facility] [place] [facility] [address] [id number] [place] [address] Oct, [facility] [place] [facility] [address] [id number] [place] [address] Sep, [facility] [place] [facility] [address] [id number] [place] [address] Sep, [facility] [place] [facility] [address] [id number] [place] [address] Sep, [facility] [place] [facility] [address] [id number] [place] [address] Sep, [facility] [address] [id number] [place] [address] August, [facility] [place] [facility] [address] [id number] [place] [address] August, [facility] [address] [id number] [place] [address] August, [facility] [place] [facility] [address] [id number] [place] [address] August, [facility] [place] [facility] [address] [id number] [place] [address] August, [facility] [place] [facility] [address] [id number] [place] [address] August, [facility] [place] [facility] [address] [id number] [place] [address] August, [facility] [place] [facility] [address] [id number] [place] [address] August, [facility] [place] [facility] [address] [id number] [place] [address] Jul, [facility] [place] [facility] [address] [id number] [place] [address] Jul, [facility] [place] [facility] [address] [id number] [place] [address] Jun, [facility] [place] [facility] [address] [id number] [place] [address] Jun, [facility] [place] [facility] [address] [id number] [place] [address] Jun, [facility] [place] [facility] [address] [id number] [place] [address] Jun, [facility] [place] [facility] [address] [id number] [place] [address] Jun, [facility] [place] [facility] [address] [id number] [place] [address] Jun, [facility] [place] [facility] [address] [id number] [place] [address] May, [facility] [place] [facility] [address] [id number] [place] [address] May, [facility] [place] [facility] [address] [id number] [place] [address] May, [facility] [place] [facility] [address] [id number] [place] [address] May, [facility] [place] [facility] [address] [id number] [place] [address] May, [facility] [place] [facility] [address] [id number] [place] [address] May, [facility] [place] [facility] [address] [id number] [place] [address] Apr, [facility] [place] [facility] [address] [id number] [place] [address] Apr, [facility] [address] [id number] [place] [address] 15 Feb, 2013 [facility] [place] [facility] [address] [id number] [place] [address] 15 Feb, 2013 [facility] [address] [id number] [place] [address] 15 Feb, 2013 [facility] [place] [facility] [address] [id number] [place] [address] 15 Feb, 2013 [facility] [address] [id number] [place] [address] Feb, [facility] [place] [facility] [address] [id number] [place] [address] Feb, [facility] [address] [id number] [place] [address] Feb, [facility] [address] [id number] [place] [address] Feb, [facility] [place] [facility] [address] [id number] [place] [address] Feb, [facility] [address] [id number] [place] [address] Jan, [facility] [place] [facility] [address] [id number] [place] [address] Jan, [facility] [place] [facility] [address] [id number] [place] [address] 10 Jan, 2013 [facility] [place] [facility] [address] [id number] [place] [address] 06 Jan, 2013 [facility] [place] [facility] [address] [id number] [place] [address] 04 Jan, 2013 [facility] [place] [facility] [address] [id number] [place] [address] Jan, [facility] [place] [facility] [address] [id number] [place] [address] Dec, [facility] [address] [id number] [place] [address] Dec, [facility] [address] [id number] [place] [address] Dec, [facility] [address] [id number] [place] [address] Dec, [facility] [address] [id number] [place] [address] Oct, [facility] [address] [id number] [place] [address] Oct, [facility] [address] [id number] [place] [address] Oct, [facility] [address] [id number] [place] [address] Oct, [facility] [address] [id number] [place] [address] Oct, [facility] [address] [id number] [place] [address] Sep, [facility] [address] [id number] [place] [address] August, [facility] [address] [id number] [place] [address] August, [facility] [place] [facility] [address] [id number] [place] [address] August, [facility] [place] [facility] [address] [id number] [place] [address] August, [facility] [place] [facility] [address] [id number] [place] [address] August, [facility] [address] [id number] [place] [address] August, [facility] [address] [id number] [place] [address] August, [facility] [address] [id number] [place] [address] August, [facility] [address] [id number] [place] [address] August, [facility] [address] [id number] [place] [address] August, [facility] [address] [id number] [place] [address] August, [facility] [address] [id number] [place] [address] August, [facility] [address] [id number] [place] [address] Jun, [facility] [address] [id number] [place] [address] Jun, [facility] [address] [id number] [place] [address] Jun, [facility] [address] [id number] [place] [address] May, [facility] [address] [id number] [place] [address] May, [facility] [address] [id number] [place] [address] Mar, [facility] [place] [facility] [address] [id number] [place] [address] Mar, [facility] [place] [facility] [address] [id number] [place] [address] Feb, [facility] [address] [id number] [place] [address] Feb, [facility] [place] [facility] [address] [id number] [place] [address] 13 Feb, 2012 [facility] [place] [facility] [address] [id number] [place] [address] 13 Feb, 2012 [facility] [place] [facility] [address] [id number] [place] [address] 25 Dec, 2011 [facility] [place] [facility] [address] [id number] [place] [address] August, [facility] [place] [facility] [address] [id number] [place] [address] Jul, [facility] [place] [facility] [address] [id number] [place] [address] 05 Jul, 2011 [facility] [place] [facility] [address] [id number] [place] [address] Jun, [facility] [place] [facility] [address] [id number] [place] [address] Jun, [facility] [place] [facility] [address] [id number] [place] [address] Jun, [facility] [place] [facility] [address] [id number] [place] [address] Jun, [facility] [place] [facility] [address] [facility] [id number] [place] [address] Jun, [facility] [place] [facility] [address] [id number] [place] [address] May, [facility] [place] [facility] [address] [id number] [place] [address] May, [facility] [place] [facility] [address] [id number] [place] [address] 14 May, 2011 [facility] [place] [facility] [address] [id number] [place] [address] 06 May, 2011 [facility] [place] [facility] [address] [id number] [place] [address] Apr, [facility] [id number] [address] Apr, [facility] [id number] [address] Apr, [facility] [id number] [address] Mar, [facility] [id number] [place] [address] Mar, [facility] [id number] [address] Mar, [facility] [id number] [place] [address] Mar, [facility] [id number] [place] [address] May, [facility] [address] [id number] [address] Feb, [facility] [id number] [place] [address] Feb, [facility] [id number] [address] Jan, [facility] [id number] [address] Jan, IMMUNIZATIONS No Known Immunizations SOCIAL HISTORY Never Assessed REASON FOR VISIT 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 07/2014 [facility] Medical History hiatal hernia Surgical History abdominal surgery 09/17/2013 Surgical History umbilical hernia Surgical History hiatal hernia Surgical History colostomy Surgical History colonoscopy 03/25/2018 Hospitalization History Hospitalization for surgery only Hospitalization History infection, prostate
--- OUTSIDE RECORDS SUMMARY | 2018-09-19 01:13 | XMS REPORT ---
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 Name Role Phone Migration, Doctor Unavailable Unavailable PROBLEMS Type Condition ICD9-CM Code VNM26-PA Code Onset Dates Condition Status SNOMED Code Problem Other fdc (current) drug therapy Z79.899 Active 090094326 Problem Encounter for therapeutic drug level monitoring Z51.81 Active 432291467 Problem 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 Active 612996966 Problem Benign prostatic hyperplasia, unspecified whether lower urinary tract symptoms present N40.0 Active 602635990 Problem Screening, lipid Z13.220 Active 933737235 Problem Shortness of breath R06.02 Active 648409699 Problem 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 Active 746187531 Problem Osteoarthritis, unspecified osteoarthritis type, unspecified site M19.90 Active 416527894 Problem Other chronic pain G89.29 Active 51758531 Problem Gastroesophageal reflux disease without esophagitis K21.9 Active 534334220 ALLERGIES No Information ENCOUNTERS Encounter Location Date Diagnosis [place] [id number] [place] [address] Jun, Osteoarthritis, unspecified osteoarthritis type, unspecified site M19.90 [place] [address] [place] [address] Jun, [facility] [id number] [place] [address] May, Osteoarthritis, unspecified osteoarthritis type, unspecified site M19.90 [facility] [id number] [place] [address] May, [facility] [id number] [place] [address] May, [facility] [id number] [place] [address] May, Osteopenia determined by x-ray M85.80 ; Shortness of breath R06.02 and Screening, lipid Z13.220 [place] [address] [address] May, [place] [id number] [place] [address] Apr, Osteoarthritis, unspecified osteoarthritis type, unspecified site M19.90 [place] [id number] [address] Apr, 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 Z79.899 [place] [id number] [place] [address] Apr, [place] [id number] [place] [address] Apr, Osteoarthritis, unspecified osteoarthritis type, unspecified site M19.90 [place] [address] [address] Mar, [place] [id number] [place] [address] Mar, Encounter for Medicare annual wellness exam Z00.00 ; Osteoarthritis, unspecified osteoarthritis type, unspecified site M19.90 ; Benign prostatic hyperplasia, unspecified whether lower urinary tract symptoms present N40.0 ; 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 and At high risk for osteoporosis Z91.89 [place] [address] [address] Mar, Osteoarthritis, unspecified osteoarthritis type, unspecified site M19.90 [place] [address] [address] Feb, [place] [address] [address] Feb, Osteoarthritis, unspecified osteoarthritis type, unspecified site M19.90 [place] [address] [address] Jan, [facility] [id number] [place] [address] Jan, Osteoarthritis, unspecified osteoarthritis type, unspecified site M19.90 [facility] [address], [place] [address] 08 Jan, 2018 Low back pain M54.5 and Other chronic pain G89.29 [facility] [id number], [place] [address] Dec, Osteoarthritis, unspecified osteoarthritis type, unspecified site M19.90 [facility] [id number] [place] [address] Dec, [facility] [id number] [address] Nov, Osteoarthritis, unspecified osteoarthritis type, unspecified site M19.90 [facility] [address], [place] [address] Nov, Shortness of breath R06.02 [facility] [address], [place] [address] Nov, [facility] [address], [place] [address] Nov, [facility] [address], [place] [address] Oct, Osteoarthritis, unspecified osteoarthritis type, unspecified site M19.90 [facility] [address], [place] [address] Sep, [facility] [address], [place] [address] Sep, Osteoarthritis, unspecified osteoarthritis type, unspecified site M19.90 [facility] [address], [place] [address] August, Other chronic pain G89.29 and Other specified personal risk factors, not elsewhere classified Z91.89 [place] [id number] [place] [address] August, Osteoarthritis, unspecified osteoarthritis type, unspecified site M19.90 [place] [id number] [place] [address] Jul, Osteoarthritis, unspecified osteoarthritis type, unspecified site M19.90 [place] [id number] [place] [address] Jun, Osteoarthritis, unspecified osteoarthritis type, unspecified site M19.90 [place] [address] [id number] [place] [address] Jun, [place] [id number] [place] [address] Jun, Osteoarthritis, unspecified osteoarthritis type, unspecified site M19.90 [place] [id number] [place] [address] May, [place] [id number] [place] [address] May, Benign prostatic hyperplasia, unspecified whether lower urinary tract symptoms present N40.0 [place] [id number] [place] [address] May, Osteoarthritis, unspecified osteoarthritis type, unspecified site M19.90 [place] [address] [id number] [place] [address] May, [place] [id number] [place] [address] Apr, Other chronic pain G89.29 ; Family history of diabetes mellitus Z83.3 ; Forgetfulness R68.89 ; History of multiple concussions Z87.820 ; Gastroesophageal reflux disease without esophagitis K21.9 and Screening, lipid Z13.220 [place] [address] [place] [address] [address] Apr, Other chronic pain G89.29 ; Forgetfulness R68.89 ; History of multiple concussions Z87.820 ; Gastroesophageal reflux disease without esophagitis K21.9 ; Screening, lipid Z13.220 and Family history of diabetes mellitus Z83.3 [place] [address] [address] Apr, Osteoarthritis, unspecified osteoarthritis type, unspecified site M19.90 [place] [address] [id number] [place] [address] Apr, Osteoarthritis, unspecified osteoarthritis type, unspecified site M19.90 [place] [address] [id number] [place] [address] Apr, [place] [id number] [place] [address] Mar, Osteoarthritis, unspecified osteoarthritis type, unspecified site M19.90 [place] [address] [id number] [place] [address] Feb, Osteoarthritis, unspecified osteoarthritis type, unspecified site M19.90 [place] [address] [id number] [place] [address] Jan, Osteoarthritis, unspecified osteoarthritis type, unspecified site M19.90 [place] [address] [address] [address] Dec, Osteoarthritis, unspecified osteoarthritis type, unspecified site M19.90 [place] [address], [place] [address] Dec, [place] [id number] [place] [address] Nov, Encounter for screening for lipid disorder Z13.220 [place] [address], [place] [address] Nov, Osteoarthritis, unspecified osteoarthritis type, unspecified site M19.90 ; Encounter for screening for lipid disorder Z13.220 and Other chronic pain G89.29 [place] [address] [id number] [place] [address] Nov, Osteoarthritis, unspecified osteoarthritis type, unspecified site M19.90 [facility] [id number] [place] [address] Nov, [place] [address] [id number] [place] [address] Nov, [place] [address] [id number] [place] [address] Oct, Osteoarthritis, unspecified osteoarthritis type, unspecified site M19.90 [place] [address] [id number] [place] [address] Oct, Gastroesophageal reflux disease without esophagitis K21.9 [place] [address] [id number] [place] [address] Sep, Osteoarthritis, unspecified osteoarthritis type, unspecified site M19.90 [place] [address] [id number] [place] [address] August, Osteoarthritis, unspecified osteoarthritis type, unspecified site M19.90 [place] [address] [id number] [place] [address] August, Osteoarthritis, unspecified osteoarthritis type, unspecified site M19.90 [facility] [id number] [place] [address] Jul, Osteoarthritis, unspecified osteoarthritis type, unspecified site M19.90 and Gastroesophageal reflux disease without esophagitis K21.9 [facility] [id number] [place] [address] Jul, Osteoarthritis, unspecified osteoarthritis type, unspecified site M19.90 [facility] [id number] [place] [address] Jun, Ventral hernia without obstruction or gangrene K43.9 [facility] [address], [place] [address] Jun, Osteoarthritis, unspecified osteoarthritis type, unspecified site M19.90 [facility] [address] [address] May, [facility] [id number] [place] [address] May, Osteoarthritis, unspecified osteoarthritis type, unspecified site M19.90 [facility] [id number] [place] [address] Apr, Osteoarthritis, unspecified osteoarthritis type, unspecified site M19.90 [facility] [id number] [place] [address] Mar, [facility] [id number] [place] [address] Mar, Osteoarthritis, unspecified osteoarthritis type, unspecified site M19.90 and Lumbago with sciatica, left side M54.42 [facility] [id number] [place] [address] Feb, [facility] [id number] [place] [address] Feb, [facility] [address], [place] [address] Feb, Osteoarthritis, unspecified osteoarthritis type, unspecified site M19.90 [facility] [address], [place] [address] Feb, [facility] [id number] [place] [address] Feb, Low back pain M54.5 and Other chronic pain G89.29 [facility] [id number] [place] [address] Feb, [facility] [id number] [place] [address] Jan, [facility] [id number] [place] [address] Jan, [facility] [id number] [place] [address] 24 Dec, 2015 Lumbago with sciatica, left side M54.42 [facility] [id number] [place] [address] 15 Dec, 2015 Irritable bowel syndrome with both constipation and diarrhea K58.0 ; Screening, lipid Z13.220 ; Nocturia R35.1 ; Family history of diabetes mellitus Z83.3 and Dysuria R30.0 [facility] [id number] [place] [address] 14 Dec, 2015 Irritable bowel syndrome with both constipation and diarrhea K58.0 ; Nocturia R35.1 ; Family history of diabetes mellitus Z83.3 ; Dysuria R30.0 and Screening, lipid Z13.220 [facility] [id number] [place] [address] 12 Dec, 2015 [facility] [id number] [place] [address] 07 Dec, 2015 [facility] [id number] [place] [address] 2015 Pain with swallowing R13.10 [facility] [id number] [place] [address] Nov, [facility] [id number] [place] [address] Nov, [facility] [id number] [place] [address] Oct, [facility] [id number] [place] [address] 15 Sep, 2015 [facility] [address] [place] [address] 07 Sep, 2015 Osteoarthritis, unspecified osteoarthritis type, unspecified site M19.90 [facility] [address] [address] 07 Sep, 2015 Back pain M54.9 [facility] [id number] [place] [address] Sep, Lumbago with sciatica, right side M54.41 and Bilateral impacted cerumen H61.23 [facility] [id number] [place] [address] Sep, [facility] [address] [address] August, Bronchitis J40 [facility] [address] [address] August, [facility] [address] [address] August, [facility] [id number] [place] [address] August, [facility] [id number] [place] [address] Jul, [facility] [id number] [place] [address] Jul, Back pain M54.9 [facility] [id number] [place] [address] Jun, Degenerative disc disease at L5-S1 level M51.36 and Bronchitis J40 [facility] [id number] [place] [address] Jun, [facility] [id number] [place] [address] May, [facility] [id number] [place] [address] Apr, [facility] [address], [place] [address] Mar, [facility] [id number] [place] [address] Mar, [facility] [id number] [place] [address] Feb, [facility] [id number] [place] [address] Jan, [facility] [id number] [place] [address] Dec, [facility] [id number] [place] [address] Nov, [facility] [id number] [place] [address] Oct, [facility] [id number] [place] [address] Oct, Right shoulder pain 719.41 [facility] [id number] [place] [address] Sep, [facility] [id number] [place] [address] Sep, Vertigo 780.4 and Elbow fracture, right 812.40 [facility] [id number] [place] [address] Sep, [facility] [id number] [place] [address] August, [facility] [id number] [place] [address] 14 Jul, 2014 [facility] [address] [address] Jul, [facility] [id number] [place] [address] Jun, [facility] [place] [facility] [address] [id number] [place] [address] Jun, [facility] [place] [facility] [address] [id number] [place] [address] Jun, [facility] [place] [facility] [address] [id number] [place] [address] Jun, [facility] [place] [facility] [address] [id number] [place] [address] Jun, [facility] [place] [facility] [address] [id number] [place] [address] Jun, [facility] [place] [facility] [address] [id number] [place] [address] May, [facility] [place] [facility] [address] [id number] [place] [address] May, [facility] [place] [facility] [address] [id number] [place] [address] May, [facility] [place] [facility] [address] [id number] [place] [address] May, [facility] [place] [facility] [address] [id number] [place] [address] May, [facility] [place] [facility] [address] [id number] [place] [address] May, [facility] [place] [facility] [address] [id number] [place] [address] Apr, [facility] [place] [facility] [address] [id number] [place] [address] Apr, [facility] [place] [facility] [address] [id number] [place] [address] Apr, [facility] [place] [facility] [address] [id number] [place] [address] Apr, [facility] [place] [facility] [address] [id number] [place] [address] Apr, [facility] [address] [id number] [place] [address] Apr, [facility] [place] [facility] [address] [id number] [place] [address] Apr, [facility] [address] [id number] [place] [address] Mar, [facility] [place] [facility] [address] [id number] [place] [address] Mar, [facility] [place] [facility] [address] [id number] [place] [address] Mar, [facility] [place] [facility] [address] [id number] [place] [address] Mar, [facility] [place] [facility] [address] [id number] [place] [address] Mar, [facility] [place] [facility] [address] [id number] [place] [address] Mar, [facility] [place] [facility] [address] [id number] [place] [address] Mar, [facility] [place] [facility] [address] [id number] [place] [address] Mar, [facility] [place] [facility] [address] [id number] [place] [address] Mar, [facility] [place] [facility] [address] [id number] [place] [address] Mar, [facility] [place] [facility] [address] [id number] [place] [address] Mar, [facility] [place] [facility] [address] [id number] [place] [address] Mar, [facility] [place] [facility] [address] [id number] [place] [address] Mar, [facility] [place] [facility] [address] [id number] [place] [address] Mar, [facility] [place] [facility] [address] [id number] [place] [address] Mar, [facility] [place] [facility] [address] [id number] [place] [address] Feb, [facility] [place] [facility] [address] [id number] [place] [address] Feb, [facility] [place] [facility] [address] [id number] [place] [address] Feb, [facility] [place] [facility] [address] [id number] [place] [address] Feb, [facility] [place] [facility] [address] [id number] [place] [address] Feb, [facility] [place] [facility] [address] [id number] [place] [address] Feb, [facility] [place] [facility] [address] [id number] [place] [address] Jan, [facility] [place] [facility] [address] [id number] [place] [address] Jan, [facility] [place] [facility] [address] [id number] [place] [address] Jan, [facility] [place] [facility] [address] [id number] [address] Jan, [facility] [place] [facility] [address] [id number] [place] [address] Jan, [facility] [place] [facility] [address] [id number] [place] [address] Jan, [facility] [place] [facility] [address] [id number] [place] [address] Dec, [facility] [place] [facility] [address] [id number] [place] [address] 29 Dec, 2013 [facility] [place] [facility] [address] [id number] [place] [address] 26 Dec, 2013 [facility] [place] [facility] [address] [id number] [place] [address] 11 Dec, 2013 [facility] [place] [facility] [address] [id number] [place] [address] 11 Dec, 2013 [facility] [place] [facility] [address] [id number] [place] [address] 08 Dec, 2013 [facility] [place] [facility] [address] [id number] [place] [address] 08 Dec, 2013 [facility] [place] [facility] [address] [id number] [place] [address] 08 Dec, 2013 [facility] [place] [facility] [address] [id number] [place] [address] 08 Dec, 2013 [facility] [place] [facility] [address] [id number] [place] [address] Dec, 2013 [facility] [place] [facility] [address] [id number] [place] [address] Dec, 2013 [facility] [place] [facility] [address] [id number] [place] [address] Nov, [facility] [place] [facility] [address] [id number] [place] [address] Nov, 2013 [facility] [place] [facility] [address] [id number] [place] [address] Nov, [facility] [place] [facility] [address] [id number] [place] [address] Nov, [facility] [place] [facility] [address] [id number] [place] [address] Nov, [facility] [place] [facility] [address] [id number] [place] [address] Nov, [facility] [place] [facility] [address] [id number] [facility] [place] [address] Nov, [facility] [place] [facility] [address] [id number] [facility] [place] [address] Nov, [facility] [place] [facility] [address] [id number] [place] [address] Nov, [facility] [place] [facility] [address] [id number] [place] [address] Nov, [facility] [place] [facility] [address] [id number] [place] [address] Oct, [facility] [place] [facility] [address] [id number] [place] [address] Oct, [facility] [place] [facility] [address] [id number] [place] [address] Oct, [facility] [place] [facility] [address] [id number] [place] [address] Oct, [facility] [place] [facility] [address] [id number] [place] [address] Oct, [facility] [place] [facility] [address] [id number] [place] [address] Oct, [facility] [place] [facility] [address] [id number] [place] [address] Oct, [facility] [place] [facility] [address] [id number] [place] [address] Oct, [facility] [place] [facility] [address] [id number] [place] [place] [address] Oct, [facility] [place] [facility] [address] [id number] [place] [address] Oct, [facility] [place] [facility] [address] [id number] [place] [address] Oct, [facility] [place] [facility] [address] [id number] [place] [address] Oct, [facility] [place] [facility] [address] [id number] [place] [address] Oct, [facility] [place] [facility] [address] [id number] [place] [address] Sep, [facility] [place] [facility] [address] [id number] [place] [address] Sep, [facility] [place] [facility] [address] [id number] [place] [address] Sep, [facility] [place] [facility] [address] [id number] [place] [address] Sep, [facility] [place] [facility] [address] [id number] [place] [address] August, [facility] [place] [facility] [address] [id number] [place] [address] August, [facility] [place] [facility] [address] [id number] [place] [address] August, [facility] [place] [facility] [address] [id number] [place] [address] August, [facility] [place] [facility] [address] [id number] [place] [address] August, [facility] [place] [facility] [address] [id number] [place] [address] August, [facility] [place] [facility] [address] [id number] [place] [address] August, [facility] [place] [facility] [address] [id number] [place] [address] August, [facility] [place] [facility] [address] [id number] [place] [address] Jul, [facility] [place] [facility] [address] [id number] [place] [address] Jul, [facility] [place] [facility] [address] [id number] [place] [address] Jun, [facility] [place] [facility] [address] [id number] [place] [address] Jun, [facility] [place] [facility] [address] [id number] [place] [address] Jun, [facility] [place] [facility] [address] [id number] [place] [address] Jun, [facility] [place] [facility] [address] [id number] [place] [address] Jun, [facility] [place] [facility] [address] [id number] [place] [address] Jun, [facility] [place] [facility] [address] [id number] [place] [address] May, [facility] [place] [facility] [address] [id number] [place] [address] May, [facility] [place] [facility] [address] [id number] [place] [address] May, [facility] [place] [facility] [address] [facility] [id number] [place] [address] May, [facility] [place] [facility] [address] [facility] [id number] [place] [address] May, [facility] [place] [facility] [address] [facility] [id number] [place] [address] May, [facility] [place] [facility] [address] [id number] [place] [address] Apr, [facility] [place] [facility] [address] [id number] [place] [address] Apr, [facility] [place] [facility] [address] [facility] [id number] [place] [address] 15 Feb, 2013 [facility] [place] [facility] [address] [id number] [place] [address] 15 Feb, 2013 [facility] [place] [facility] [address] [id number] [place] [address] 15 Feb, 2013 [facility] [place] [facility] [address] [id number] [place] [address] 15 Feb, 2013 [facility] [place] [facility] [address] [id number] [place] [address] Feb, [facility] [place] [facility] [address] [id number] [place] [address] Feb, [facility] [place] [facility] [address] [id number] [place] [address] Feb, [facility] [place] [facility] [address] [id number] [place] [address] Feb, [facility] [place] [facility] [address] [id number] [place] [address] Feb, [facility] [place] [facility] [address] [id number] [address] Jan, [facility] [place] [facility] [address] [id number], [place] [address] Jan, [facility] [place] [facility] [address] [id number] [address] Jan, [facility] [place] [facility] [address] [id number], [place] [address] 06 Jan, 2013 [facility] [place] [facility] [address] [id number] [address] 04 Jan, 2013 [facility] [place] [facility] [address] [id number], [place] [address] 02 Jan, 2013 [facility] [place] [facility] [address] [id number], [place] [address] 17 Dec, 2012 [facility] [place] [facility] [address] [id number], [place] [address] 12 Dec, 2012 [facility] [place] [facility] [address] [id number] [place] [address] 05 Dec, 2012 [facility] [address] [id number] [place] [address] 05 Dec, 2012 [facility] [address] [id number] [place] [address] Oct, [facility] [address] [id number] [place] [address] Oct, [facility] [address] [id number] [place] [address] Oct, [facility] [address] [id number] [place] [address] Oct, [facility] [address] [id number] [place] [address] Oct, [facility] [address] [id number] [place] [address] Sep, [facility] [address] [id number] [place] [address] August, [facility] [address] [id number] [place] [address] August, [facility] [address] [id number] [place] [address] August, [facility] [address] [id number] [place] [address] August, [facility] [address] [id number] [place] [address] August, [facility] [place] [facility] [address] [id number] [place] [address] August, [facility] [address] [id number] [place] [address] August, [facility] [address] [id number] [place] [address] August, [facility] [address] [id number] [place] [address] August, [facility] [address] [id number] [place] [address] August, [facility] [address] [id number] [place] [address] August, [facility] [address] [id number] [place] [address] August, [facility] [address] [id number] [place] [address] Jun, [facility] [address] [id number] [place] [address] Jun, [facility] [address] [id number] [place] [address] Jun, [facility] [address] [id number] [place] [address] May, [facility] [address] [id number] [place] [address] May, [facility] [address] [id number] [place] [address] Mar, [facility] [address] [id number] [place] [address] Mar, [facility] [address] [id number] [place] [address] Feb, [facility] [place] [facility] [address] [id number] [place] [address] Feb, [facility] [place] [facility] [address] [id number] [place] [address] Feb, [facility] [place] [facility] [address] [id number] [place] [address] Feb, [facility] [address] [id number] [address] Dec, [facility] [address] [id number] [place] [address] August, [facility] [address] [id number] [place] [address] Jul, [facility] [address] [facility] [id number] [place] [address] Jul, [facility] [address] [id number] [place] [address] Jun, [facility] [address] [id number] [place] [address] Jun, [facility] [address] [facility] [id number] [place] [address] Jun, [facility] [address] [id number] [place] [address] Jun, [facility] [place] [facility] [address] [facility] [id number] [place] [address] Jun, [facility] [address] [facility] [id number] [place] [address] May, [facility] [place] [facility] [address] [facility] [id number] [place] [address] May, [facility] [address] [facility] [id number] [place] [address] May, [facility] [place] [facility] [address] [facility] [id number], [place] [address] May, [facility] [place] [facility] [address] [id number], [place] [address] Apr, [facility] [place] [facility] [address] [id number], [place] [address] Apr, [facility] [place] [facility] [address] [facility] [id number], [place] [address] Apr, [facility] [place] [facility] [address] [id number], [place] [address] Mar, [facility] [id number], [place] [address] Mar, [facility] [id number], [place] [address] Mar, [facility] [id number], [place] [address] Mar, [facility] [id number], [place] [address] May, [facility] [id number] [place] [address] Feb, [facility] [id number], [place] [address] Feb, [facility] [id number], [place] [address] Jan, [facility] [address] [id number], [place] [address] Jan, IMMUNIZATIONS No Known Immunizations SOCIAL HISTORY Never Assessed REASON FOR VISIT [facility] PLAN OF CARE VITAL SIGNS MEDICATIONS Unknown [...]
--- OUTSIDE RECORDS SUMMARY | 2018-09-19 01:13 | XMS REPORT ---
Author Author Migration, Doctor Organization [facility] Address Unknown Phone Unavailable Care Team Providers Care [employer] Name Role Phone Migration, Doctor Unavailable Unavailable PROBLEMS Type Condition ICD9-CM Code YUH88-BG Code Onset Dates Condition Status SNOMED Code Problem Other jail (current) drug therapy Z79.899 Active 099808691 Problem Encounter for therapeutic drug level monitoring Z51.81 Active 311767484 Problem 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 Active 332436501 Problem Benign prostatic hyperplasia, unspecified whether lower urinary tract symptoms present N40.0 Active 897332933 Problem Screening, lipid Z13.220 Active 886298914 Problem Shortness of breath R06.02 Active 858544310 Problem 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 Active 681557214 Problem Osteoarthritis, unspecified osteoarthritis type, unspecified site M19.90 Active 471072630 Problem Other chronic pain G89.29 Active 05547898 Problem Gastroesophageal reflux disease without esophagitis K21.9 Active 648160077 ALLERGIES No Information ENCOUNTERS Encounter Location Date Diagnosis [place] [id number] [place] [address] Jul, Osteoarthritis, unspecified osteoarthritis type, unspecified site M19.90 [place] [id number] [place] [address] Jun, Osteoarthritis, unspecified osteoarthritis type, unspecified site M19.90 [place] [id number] [place] [address] Jun, [place] [id number] [place] [address] May, Osteoarthritis, unspecified osteoarthritis type, unspecified site M19.90 [facility] [id number] [place] [address] May, [place] [address] [address] 13 May, 2018 [place] [id number] [place] [address] May, Osteopenia determined by x-ray M85.80 ; Shortness of breath R06.02 and Screening, lipid Z13.220 [place] [id number] [place] [address] May, [place] [id number] [place] [address] Apr, Osteoarthritis, unspecified osteoarthritis type, unspecified site M19.90 [place] [id number] [place] [address] Apr, 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 [place] [id number] [place] [address] Apr, [place] [id number] [place] [address] Apr, Osteoarthritis, unspecified osteoarthritis type, unspecified site M19.90 [place] [id number] [place] [address] Mar, [place] [address] [address] Mar, Encounter for Medicare annual wellness exam Z00.00 ; Osteoarthritis, unspecified osteoarthritis type, unspecified site M19.90 ; Benign prostatic hyperplasia, unspecified whether lower urinary tract symptoms present N40.0 ; 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 and At high risk for osteoporosis Z91.89 [place] [address], [place] [address] Mar, Osteoarthritis, unspecified osteoarthritis type, unspecified site M19.90 [place] [address], [place] [address] Feb, [place] [address], [place] [address] Feb, Osteoarthritis, unspecified osteoarthritis type, unspecified site M19.90 [facility] [id number] [address] Jan, [facility] [id number] [address] Jan, Osteoarthritis, unspecified osteoarthritis type, unspecified site M19.90 [facility] [id number] [place] [address] Jan, Low back pain M54.5 and Other chronic pain G89.29 [facility] [id number] [place] [address] Dec, Osteoarthritis, unspecified osteoarthritis type, unspecified site M19.90 [facility] [id number] [address] Dec, [facility] [id number] [place] [address] Nov, Osteoarthritis, unspecified osteoarthritis type, unspecified site M19.90 [facility] [address], [place] [address] Nov, Shortness of breath R06.02 [facility] [address], [place] [address] Nov, [facility] [id number] [address] Nov, [facility] [address], [place] [address] Oct, Osteoarthritis, unspecified osteoarthritis type, unspecified site M19.90 [facility] [address], [place] [address] Sep, [facility] [id number], [place] [address] Sep, Osteoarthritis, unspecified osteoarthritis type, unspecified site M19.90 [place] [id number] [place] [address] August, Other chronic pain G89.29 and Other specified personal risk factors, not elsewhere classified Z91.89 [place] [id number] [place] [address] August, Osteoarthritis, unspecified osteoarthritis type, unspecified site M19.90 [place] [id number] [place] [address] Jul, Osteoarthritis, unspecified osteoarthritis type, unspecified site M19.90 [place] [id number] [place] [address] Jun, Osteoarthritis, unspecified osteoarthritis type, unspecified site M19.90 [place] [id number] [place] [address] Jun, [place] [id number] [place] [address] Jun, Osteoarthritis, unspecified osteoarthritis type, unspecified site M19.90 [place] [id number] [place] [address] May, [place] [id number] [place] [address] May, Benign prostatic hyperplasia, unspecified whether lower urinary tract symptoms present N40.0 [place] [id number] [place] [address] May, Osteoarthritis, unspecified osteoarthritis type, unspecified site M19.90 [place] [id number] [place] [address] May, [place] [id number] [place] [address] Apr, Other chronic pain G89.29 ; Family history of diabetes mellitus Z83.3 ; Forgetfulness R68.89 ; History of multiple concussions Z87.820 ; Gastroesophageal reflux disease without esophagitis K21.9 and Screening, lipid Z13.220 [place] [id number] [place] [address] Apr, Other chronic pain G89.29 ; Forgetfulness R68.89 ; History of multiple concussions Z87.820 ; Gastroesophageal reflux disease without esophagitis K21.9 ; Screening, lipid Z13.220 and Family history of diabetes mellitus Z83.3 [place] [id number] [place] [address] Apr, Osteoarthritis, unspecified osteoarthritis type, unspecified site M19.90 [place] [id number] [place] [address] Apr, Osteoarthritis, unspecified osteoarthritis type, unspecified site M19.90 [place] [id number] [place] [address] Apr, [place] [id number] [place] [address] Mar, Osteoarthritis, unspecified osteoarthritis type, unspecified site M19.90 [place] [id number] [place] [address] Feb, Osteoarthritis, unspecified osteoarthritis type, unspecified site M19.90 [place] [id number] [place] [address] Jan, Osteoarthritis, unspecified osteoarthritis type, unspecified site M19.90 [place] [id number] [place] [address] Dec, Osteoarthritis, unspecified osteoarthritis type, unspecified site M19.90 [place] [id number] [place] [address] Dec, [place] [id number] [place] [address] Nov, Encounter for screening for lipid disorder Z13.220 [facility] [address], [place] [address] Nov, Osteoarthritis, unspecified osteoarthritis type, unspecified site M19.90 ; Encounter for screening for lipid disorder Z13.220 and Other chronic pain G89.29 [facility] [address] [place] [address] Nov, Osteoarthritis, unspecified osteoarthritis type, unspecified site M19.90 [facility] [id number] [place] [address] Nov, [place] [id number] [place] [address] Nov, [place] [id number] [place] [address] Oct, Osteoarthritis, unspecified osteoarthritis type, unspecified site M19.90 [place] [id number] [place] [address] Oct, Gastroesophageal reflux disease without esophagitis K21.9 [place] [id number] [place] [address] Sep, Osteoarthritis, unspecified osteoarthritis type, unspecified site M19.90 [place] [id number] [place] [address] August, Osteoarthritis, unspecified osteoarthritis type, unspecified site M19.90 [facility] [id number] [place] [address] August, Osteoarthritis, unspecified osteoarthritis type, unspecified site M19.90 [place] [id number] [place] [address] Jul, Osteoarthritis, unspecified osteoarthritis type, unspecified site M19.90 and Gastroesophageal reflux disease without esophagitis K21.9 [facility] [id number] [place] [address] Jul, Osteoarthritis, unspecified osteoarthritis type, unspecified site M19.90 [facility] [address], [place] [address] Jun, Ventral hernia without obstruction or gangrene K43.9 [facility] [address], [place] [address] Jun, Osteoarthritis, unspecified osteoarthritis type, unspecified site M19.90 [facility] [id number] [place] [address] May, [facility] [id number] [place] [address] May, Osteoarthritis, unspecified osteoarthritis type, unspecified site M19.90 [facility] [id number] [place] [address] Apr, Osteoarthritis, unspecified osteoarthritis type, unspecified site M19.90 [facility] [id number] [place] [address] Mar, [facility] [id number] [place] [address] Mar, Osteoarthritis, unspecified osteoarthritis type, unspecified site M19.90 and Lumbago with sciatica, left side M54.42 [facility] [address], [place] [address] Feb, [facility] [id number], [place] [address] Feb, [facility] [address], [place] [address] Feb, Osteoarthritis, unspecified osteoarthritis type, unspecified site M19.90 [facility] [address], [place] [address] Feb, [facility] [address], [place] [address] Feb, Low back pain M54.5 and Other chronic pain G89.29 [facility] [id number] [place] [address] Feb, [facility] [id number] [place] [address] Jan, [facility] [id number] [place] [address] Jan, [facility] [id number] [place] [address] 24 Dec, 2015 Lumbago with sciatica, left side M54.42 [place] [id number] [place] [address] 15 Dec, 2015 Irritable bowel syndrome with both constipation and diarrhea K58.0 ; Screening, lipid Z13.220 ; Nocturia R35.1 ; Family history of diabetes mellitus Z83.3 and Dysuria R30.0 [place] [id number] [place] [address] 14 Dec, 2015 Irritable bowel syndrome with both constipation and diarrhea K58.0 ; Nocturia R35.1 ; Family history of diabetes mellitus Z83.3 ; Dysuria R30.0 and Screening, lipid Z13.220 [facility] [id number] [place] [address] 12 Dec, 2015 [facility] [id number] [place] [address] Dec, [facility] [id number] [place] [address] Dec, Pain with swallowing R13.10 [place] [id number] [place] [address] Nov, [facility] [id number] [place] [address] Nov, [facility] [id number] [place] [address] Oct, [facility] [id number] [place] [address] Sep, [facility] [id number] [place] [address] Sep, Osteoarthritis, unspecified osteoarthritis type, unspecified site M19.90 [facility] [id number] [place] [address] Sep, Back pain M54.9 [facility] [id number] [place] [address] Sep, Lumbago with sciatica, right side M54.41 and Bilateral impacted cerumen H61.23 [facility] [id number] [place] [address] Sep, [facility] [id number] [place] [address] August, Bronchitis J40 [facility] [id number] [place] [address] August, [facility] [id number] [place] [address] August, [facility] [id number] [place] [address] August, [facility] [id number] [place] [address] Jul, [facility] [id number] [place] [address] Jul, Back pain M54.9 [facility] [id number] [place] [address] Jun, Degenerative disc disease at L5-S1 level M51.36 and Bronchitis J40 [facility] [id number] [place] [address] Jun, [facility] [address] [place] [address] May, [facility] [address], [place] [address] Apr, [facility] [address], [place] [address] Mar, [facility] [address] [place] [address] Mar, [facility] [id number] [place] [address] Feb, [facility] [id number] [place] [address] Jan, [facility] [id number] [place] [address] Dec, [facility] [id number] [place] [address] Nov, [facility] [address], [place] [address] Oct, [facility] [id number] [place] [address] Oct, Right shoulder pain 719.41 [facility] [address], [place] [address] Sep, [facility] [address], [place] [address] Sep, Vertigo 780.4 and Elbow fracture, right 812.40 [facility] [address], [place] [address] Sep, [facility] [address], [place] [address] August, [facility] [address], [place] [address] Jul, [facility] [id number] [address] 13 Jul, 2014 [facility] [place] [facility] [address] [id number] [place] [address] Jun, [facility] [place] [facility] [address] [id number] [place] [address] Jun, [facility] [place] [facility] [address] [id number] [place] [address] Jun, [facility] [place] [facility] [address] [id number] [place] [address] Jun, [facility] [place] [facility] [address] [id number] [place] [address] Jun, [facility] [place] [facility] [address] [facility] [id number] [place] [address] Jun, [facility] [place] [facility] [address] [facility] [id number] [place] [address] May, [facility] [place] [facility] [address] [id number] [place] [address] May, [facility] [place] [facility] [id number] [address] May, [facility] [place] [facility] [address] [facility] [id number] [place] [address] May, [facility] [place] [facility] [address] [facility] [id number] [place] [address] May, [facility] [place] [facility] [address] [facility] [id number] [place] [address] May, [facility] [place] [facility] [address] [id number] [place] [address] Apr, [facility] [place] [facility] [address] [facility] [id number] [address] Apr, [facility] [place] [facility] [address] [facility] [id number] [place] [address] Apr, [facility] [place] [facility] [address] [id number] [place] [address] Apr, [facility] [place] [facility] [address] [id number] [place] [address] Apr, [facility] [place] [facility] [address] [id number] [place] [address] Apr, [facility] [place] [facility] [address] [id number] [place] [address] Apr, [facility] [place] [facility] [address] [id number] [place] [address] Mar, [facility] [place] [facility] [address] [id number] [place] [address] Mar, [facility] [place] [facility] [address] [id number] [place] [address] Mar, [facility] [place] [facility] [address] [id number] [place] [address] Mar, [facility] [place] [facility] [address] [id number] [place] [address] Mar, [facility] [place] [facility] [address] [id number] [place] [address] Mar, [facility] [place] [facility] [address] [id number] [place] [address] Mar, [facility] [place] [facility] [address] [id number] [place] [address] Mar, [facility] [place] [facility] [address] [id number] [place] [address] Mar, [facility] [place] [facility] [address] [id number] [place] [address] Mar, [facility] [place] [facility] [address] [id number] [place] [address] Mar, [facility] [place] [facility] [address] [id number] [place] [address] Mar, [facility] [place] [facility] [address] [id number] [place] [address] Mar, [facility] [place] [facility] [address] [id number] [place] [address] Mar, [facility] [place] [facility] [address] [id number] [place] [address] Mar, [facility] [place] [facility] [address] [id number] [place] [address] Feb, [facility] [place] [facility] [address] [id number] [place] [address] Feb, [facility] [place] [facility] [address] [id number] [place] [address] Feb, [facility] [place] [facility] [address] [facility] [id number] [place] [address] Feb, [facility] [place] [facility] [address] [id number] [place] [address] Feb, [facility] [place] [facility] [address] [id number] [place] [address] Feb, [facility] [place] [facility] [address] [facility] [id number] [place] [address] Jan, [facility] [place] [facility] [address] [id number] [place] [address] Jan, [facility] [place] [facility] [address] [id number] [place] [address] Jan, [facility] [place] [facility] [address] [id number] [place] [address] Jan, [facility] [place] [facility] [address] [id number] [place] [address] Jan, [facility] [place] [facility] [address] [id number] [place] [address] Jan, [facility] [place] [facility] [address] [id number] [place] [address] 29 Dec, 2013 [facility] [place] [facility] [address] [id number] [place] [address] 29 Dec, 2013 [facility] [place] [facility] [address] [id number] [place] [address] Dec, 2013 [facility] [place] [facility] [address] [id number] [place] [address] Dec, 2013 [facility] [place] [facility] [address] [id number] [place] [address] Dec, 2013 [facility] [place] [facility] [address] [id number] [place] [address] Dec, 2013 [facility] [place] [facility] [address] [id number] [place] [address] Dec, 2013 [facility] [place] [facility] [address] [id number] [place] [address] Dec, 2013 [facility] [place] [facility] [address] [id number] [place] [address] Dec, 2013 [facility] [place] [facility] [address] [id number] [place] [address] Dec, 2013 [facility] [place] [facility] [address] [id number] [place] [address] Dec, [facility] [place] [facility] [address] [id number] [place] [address] Nov, [facility] [place] [facility] [address] [id number] [place] [address] Nov, [facility] [place] [facility] [address] [id number] [place] [address] Nov, [facility] [place] [facility] [address] [id number] [place] [address] Nov, [facility] [place] [facility] [address] [id number] [place] [address] Nov, [facility] [place] [facility] [address] [id number] [place] [address] Nov, [facility] [place] [facility] [address] [id number] [place] [address] Nov, [facility] [place] [facility] [address] [id number] [place] [address] Nov, [facility] [place] [facility] [address] [id number] [place] [address] Nov, [facility] [place] [facility] [address] [id number] [place] [address] Nov, [facility] [place] [facility] [address] [id number] [place] [address] Oct, [facility] [place] [facility] [address] [id number] [place] [address] Oct, [facility] [place] [facility] [address] [id number] [place] [address] Oct, [facility] [place] [facility] [address] [id number] [place] [address] Oct, [facility] [place] [facility] [address] [id number] [place] [address] Oct, [facility] [place] [facility] [address] [id number] [place] [address] Oct, [facility] [place] [facility] [address] [id number] [place] [address] Oct, [facility] [place] [facility] [address] [id number] [place] [address] Oct, [facility] [place] [facility] [address] [id number] [place] [address] Oct, [facility] [place] [facility] [address] [id number] [place] [address] Oct, [facility] [place] [facility] [address] [id number] [place] [address] Oct, [facility] [address] [id number] [place] [address] Oct, [facility] [place] [facility] [address] [id number] [place] [address] Oct, [facility] [address] [id number] [place] [address] Sep, [facility] [place] [facility] [address] [id number] [place] [address] Sep, [facility] [place] [facility] [address] [id number] [place] [address] Sep, [facility] [place] [facility] [address] [id number] [place] [address] Sep[facility] [place] [facility] [address] [id number] [place] [address] August, [facility] [address] [id number] [place] [address] August, [facility] [place] [facility] [address] [id number] [place] [address] August, [facility] [address] [id number] [place] [address] August, [facility] [place] [facility] [address] [id number] [place] [address] August, [facility] [place] [facility] [address] [id number] [place] [address] August, [facility] [place] [facility] [address] [id number] [place] [address] August, [facility] [place] [facility] [address] [id number] [place] [address] August, [facility] [place] [facility] [address] [id number] [place] [address] Jul, [facility] [place] [facility] [address] [id number] [place] [address] Jul, [facility] [place] [facility] [address] [id number] [place] [address] Jun, [facility] [place] [facility] [address] [id number] [place] [address] Jun, [facility] [place] [facility] [address] [id number] [place] [address] Jun, [facility] [place] [facility] [address] [id number] [place] [address] Jun, [facility] [place] [facility] [address] [id number] [place] [address] Jun, [facility] [place] [facility] [address] [id number] [place] [address] Jun, [facility] [place] [facility] [address] [id number] [place] [address] May, [facility] [place] [facility] [address] [id number] [place] [address] May, [facility] [place] [facility] [address] [id number] [place] [address] May, [facility] [place] [facility] [address] [id number] [place] [address] May, [facility] [place] [facility] [address] [id number], [place] [address] May, [facility] [place] [facility] [address] [id number] [place] [address] May, [facility] [place] [facility] [address] [id number] [place] [address] Apr, [facility] [place] [facility] [address] [id number] [place] [address] Apr, [facility] [place] [facility] [address] [id number] [place] [address] 15 Feb, 2013 [facility] [address] [id number] [place] [address] 15 Feb, 2013 [facility] [place] [facility] [address] [id number] [place] [address] 15 Feb, 2013 [facility] [address] [id number] [place] [address] 15 Feb, 2013 [facility] [place] [facility] [address] [id number] [place] [address] 13 Feb, 2013 [facility] [place] [facility] [address] [id number] [place] [address] 13 Feb, 2013 [facility] [place] [facility] [address] [id number] [place] [address] Feb, [facility] [place] [facility] [address] [id number] [place] [address] Feb, [facility] [address] [id number] [place] [address] 08 Feb, 2013 [facility] [place] [facility] [address] [id number] [place] [address] 27 Jan, 2013 [facility] [place] [facility] [address] [id number] [place] [address] 27 Jan, 2013 [facility] [place] [facility] [address] [id number] [place] [address] 10 Jan, 2013 [facility] [place] [facility] [address] [id number] [place] [address] 06 Jan, 2013 [facility] [place] [facility] [address] [id number] [place] [address] 04 Jan, 2013 [facility] [place] [facility] [address] [id number] [place] [address] 02 Jan, 2013 [facility] [place] [facility] [address] [id number] [place] [address] 17 Dec, 2012 [facility] [place] [facility] [address] [id number] [place] [address] 12 Dec, 2012 [facility] [address] [id number] [place] [address] Dec, [facility] [address] [id number] [place] [address] Dec, [facility] [address] [id number] [place] [address] Oct, [facility] [address] [id number] [place] [address] Oct, [facility] [address] [id number] [place] [address] Oct, [facility] [address] [id number] [place] [address] Oct, [facility] [address] [id number] [place] [address] Oct, [facility] [address] [id number] [place] [address] Sep, [facility] [address] [id number] [place] [address] August, [facility] [address] [id number] [place] [address] August, [facility] [address] [id number] [place] [address] August, [facility] [place] [facility] [address] [id number] [place] [address] August, [facility] [place] [facility] [address] [id number] [place] [address] August, [facility] [place] [facility] [address] [id number] [place] [address] August, [facility] [place] [facility] [address] [id number], [place] [address] August, [facility] [address] [id number] [place] [address] August, [facility] [address] [id number] [place] [address] August, [facility] [address] [id number] [place] [address] August, [facility] [address] [id number] [place] [address] August, [facility] [address] [id number] [place] [address] August, [facility] [address] [id number] [place] [address] Jun, [facility] [address] [id number] [place] [address] Jun, [facility] [address] [id number] [place] [address] Jun, [facility] [address] [id number] [place] [address] May, [facility] [address] [id number] [place] [address] May, [facility] [address] [id number] [place] [address] Mar, [facility] [place] [facility] [address] [id number] [place] [address] Mar, [facility] [place] [facility] [address] [id number] [place] [address] Feb, [facility] [place] [facility] [address] [id number] [place] [address] Feb, [facility] [address] [id number] [place] [address] Feb, [facility] [place] [facility] [address] [id number] [place] [address] 13 Feb, 2012 [facility] [place] [facility] [address] [id number] [place] [address] 25 Dec, 2011 [facility] [place] [facility] [address] [id number] [place] [address] August, [facility] [place] [facility] [address] [id number] [place] [address] Jul, [facility] [place] [facility] [address] [id number] [place] [address] Jul, [facility] [place] [facility] [address] [id number] [place] [address] Jun, [facility] [place] [facility] [address] [id number] [place] [address] Jun, [facility] [place] [facility] [address] [id number] [place] [address] Jun, [facility] [place] [facility] [address] [id number] [place] [address] Jun, [facility] [place] [facility] [address] [id number] [place] [address] Jun, [facility] [place] [facility] [address] [facility] [id number] [place] [address] May, [facility] [place] [facility] [address] [id number] [place] [address] May, [facility] [place] [facility] [address] [id number] [place] [address] 14 May, 2011 [facility] [place] [facility] [address] [id number] [place] [address] 06 May, 2011 [facility] [place] [facility] [address] [id number] [place] [address] Apr, [facility] [place] [facility] [address] [id number], [place] [address] Apr, [facility] [address] [id number], [place] [address] Apr, [facility] [address] [id number], [place] [address] Mar, [facility] [id number], [place] [address] Mar, [facility] [id number], [place] [address] Mar, [facility] [id number], [place] [address] Mar, [facility] [id number], [place] [address] May, [facility] [id number], [place] [address] Feb, [facility] [id number], [place] [address] Feb, [facility] [address] [id number], [place] [address] Jan, [facility] [address] [id number], [place] [address] Jan, IMMUNIZATIONS No Known Immunizations SOCIAL HISTORY Never Assessed REASON FOR VISIT EMR-[facility] PLAN OF CARE VITAL SIGNS MEDICATIONS Unknown [...]
--- OUTSIDE RECORDS SUMMARY | 2018-09-19 01:14 | XMS REPORT ---
Author Author Migration, Doctor Organization [facility] [place] [facility] Address Unknown Phone Unavailable Care Team Providers Care Nurse'S Assistant Name Role Phone Migration, Doctor Unavailable Unavailable PROBLEMS Type Condition ICD9-CM Code BJC78-TD Code Onset Dates Condition Status SNOMED Code Problem Other penitentiary (current) drug therapy Z79.899 Active 897212409 Problem Encounter for therapeutic drug level monitoring Z51.81 Active 659988617 Problem 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 Active 826232881 Problem Benign prostatic hyperplasia, unspecified whether lower urinary tract symptoms present N40.0 Active 633753300 Problem Screening, lipid Z13.220 Active 825481963 Problem Shortness of breath R06.02 Active 492030505 Problem 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 Active 715211754 Problem Osteoarthritis, unspecified osteoarthritis type, unspecified site M19.90 Active 351713762 Problem Other chronic pain G89.29 Active 32131288 Problem Gastroesophageal reflux disease without esophagitis K21.9 Active 837965629 ALLERGIES No Information ENCOUNTERS Encounter Location Date Diagnosis [place] [id number] [place] [address] Jun, Osteoarthritis, unspecified osteoarthritis type, unspecified site M19.90 [place] [id number] [place] [address] Jun, [facility] [id number] [place] [address] May, Osteoarthritis, unspecified osteoarthritis type, unspecified site M19.90 [facility] [id number] [place] [address] May, [facility] [id number] [place] [address] May, [facility] [id number] [place] [address] May, Osteopenia determined by x-ray M85.80 ; Shortness of breath R06.02 and Screening, lipid Z13.220 [place] [address] [address] May, [place] [id number] [place] [address] Apr, Osteoarthritis, unspecified osteoarthritis type, unspecified site M19.90 [place] [id number] [address] Apr, 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 [place] [id number] [place] [address] Apr, [place] [id number] [place] [address] Apr, Osteoarthritis, unspecified osteoarthritis type, unspecified site M19.90 [place] [address] [address] Mar, [place] [id number] [place] [address] Mar, Encounter for Medicare annual wellness exam Z00.00 ; Osteoarthritis, unspecified osteoarthritis type, unspecified site M19.90 ; Benign prostatic hyperplasia, unspecified whether lower urinary tract symptoms present N40.0 ; 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 and At high risk for osteoporosis Z91.89 [place] [address] [address] Mar, Osteoarthritis, unspecified osteoarthritis type, unspecified site M19.90 [place] [address] [address] Feb, [place] [address] [address] Feb, Osteoarthritis, unspecified osteoarthritis type, unspecified site M19.90 [place] [address] [address] Jan, [facility] [id number] [place] [address] Jan, Osteoarthritis, unspecified osteoarthritis type, unspecified site M19.90 [facility] [address] [address] 08 Jan, 2018 Low back pain M54.5 and Other chronic pain G89.29 [facility] [id number] [address] Dec, Osteoarthritis, unspecified osteoarthritis type, unspecified site M19.90 [facility] [id number] [place] [address] Dec, [facility] [id number] [address] Nov, Osteoarthritis, unspecified osteoarthritis type, unspecified site M19.90 [facility] [address] [address] Nov, Shortness of breath R06.02 [facility] [address], [place] [address] Nov, [facility] [address] [address] Nov, [facility] [address] [address] Oct, Osteoarthritis, unspecified osteoarthritis type, unspecified site M19.90 [facility] [address] [address] Sep, [facility] [address], [place] [address] Sep, Osteoarthritis, unspecified osteoarthritis type, unspecified site M19.90 [facility] [id number] [address] August, Other chronic pain G89.29 and Other specified personal risk factors, not elsewhere classified Z91.89 [place] [id number] [place] [address] August, Osteoarthritis, unspecified osteoarthritis type, unspecified site M19.90 [place] [id number] [place] [address] Jul, Osteoarthritis, unspecified osteoarthritis type, unspecified site M19.90 [place] [id number] [place] [address] Jun, Osteoarthritis, unspecified osteoarthritis type, unspecified site M19.90 [place] [id number] [place] [address] Jun, [place] [id number] [place] [address] Jun, Osteoarthritis, unspecified osteoarthritis type, unspecified site M19.90 [place] [id number] [place] [address] May, [place] [id number] [place] [address] May, Benign prostatic hyperplasia, unspecified whether lower urinary tract symptoms present N40.0 [place] [id number] [place] [address] May, Osteoarthritis, unspecified osteoarthritis type, unspecified site M19.90 [place] [id number] [place] [address] May, [place] [id number] [place] [address] Apr, Other chronic pain G89.29 ; Family history of diabetes mellitus Z83.3 ; Forgetfulness R68.89 ; History of multiple concussions Z87.820 ; Gastroesophageal reflux disease without esophagitis K21.9 and Screening, lipid Z13.220 [place] [address] [address] Apr, Other chronic pain G89.29 ; Forgetfulness R68.89 ; History of multiple concussions Z87.820 ; Gastroesophageal reflux disease without esophagitis K21.9 ; Screening, lipid Z13.220 and Family history of diabetes mellitus Z83.3 [place] [address] [address] Apr, Osteoarthritis, unspecified osteoarthritis type, unspecified site M19.90 [place] [id number] [place] [address] Apr, Osteoarthritis, unspecified osteoarthritis type, unspecified site M19.90 [place] [id number] [place] [address] Apr, [place] [id number] [place] [address] Mar, Osteoarthritis, unspecified osteoarthritis type, unspecified site M19.90 [place] [id number] [place] [address] Feb, Osteoarthritis, unspecified osteoarthritis type, unspecified site M19.90 [place] [id number] [place] [address] Jan, Osteoarthritis, unspecified osteoarthritis type, unspecified site M19.90 [place] [id number] [address] Dec, Osteoarthritis, unspecified osteoarthritis type, unspecified site M19.90 [place] [address], [place] [address] Dec, [place] [id number] [place] [address] Nov, Encounter for screening for lipid disorder Z13.220 [place] [address], [place] [address] Nov, Osteoarthritis, unspecified osteoarthritis type, unspecified site M19.90 ; Encounter for screening for lipid disorder Z13.220 and Other chronic pain G89.29 [place] [id number] [place] [address] Nov, Osteoarthritis, unspecified osteoarthritis type, unspecified site M19.90 [facility] [id number] [place] [address] Nov, [place] [address] [id number] [place] [address] Nov, [place] [id number] [place] [address] Oct, Osteoarthritis, unspecified osteoarthritis type, unspecified site M19.90 [place] [id number] [place] [address] Oct, Gastroesophageal reflux disease without esophagitis K21.9 [place] [id number] [place] [address] Sep, Osteoarthritis, unspecified osteoarthritis type, unspecified site M19.90 [place] [id number] [place] [address] August, Osteoarthritis, unspecified osteoarthritis type, unspecified site M19.90 [place] [id number] [place] [address] August, Osteoarthritis, unspecified osteoarthritis type, unspecified site M19.90 [facility] [id number] [place] [address] Jul, Osteoarthritis, unspecified osteoarthritis type, unspecified site M19.90 and Gastroesophageal reflux disease without esophagitis K21.9 [facility] [id number] [place] [address] Jul, Osteoarthritis, unspecified osteoarthritis type, unspecified site M19.90 [facility] [id number] [place] [address] Jun, Ventral hernia without obstruction or gangrene K43.9 [facility] [address], [place] [address] Jun, Osteoarthritis, unspecified osteoarthritis type, unspecified site M19.90 [facility] [id number] [address] May, [facility] [id number] [place] [address] May, Osteoarthritis, unspecified osteoarthritis type, unspecified site M19.90 [facility] [id number] [place] [address] Apr, Osteoarthritis, unspecified osteoarthritis type, unspecified site M19.90 [facility] [id number] [place] [address] Mar, [facility] [id number] [place] [address] Mar, Osteoarthritis, unspecified osteoarthritis type, unspecified site M19.90 and Lumbago with sciatica, left side M54.42 [facility] [id number] [place] [address] Feb, [facility] [id number] [place] [address] Feb, [facility] [address], [place] [address] Feb, Osteoarthritis, unspecified osteoarthritis type, unspecified site M19.90 [facility] [address], [place] [address] Feb, [facility] [id number] [place] [address] Feb, Low back pain M54.5 and Other chronic pain G89.29 [facility] [id number] [place] [address] Feb, [facility] [id number] [place] [address] Jan, [facility] [id number] [place] [address] Jan, [facility] [id number] [place] [address] 24 Dec, 2015 Lumbago with sciatica, left side M54.42 [facility] [id number] [place] [address] 15 Dec, 2015 Irritable bowel syndrome with both constipation and diarrhea K58.0 ; Screening, lipid Z13.220 ; Nocturia R35.1 ; Family history of diabetes mellitus Z83.3 and Dysuria R30.0 [facility] [id number] [place] [address] 14 Dec, 2015 Irritable bowel syndrome with both constipation and diarrhea K58.0 ; Nocturia R35.1 ; Family history of diabetes mellitus Z83.3 ; Dysuria R30.0 and Screening, lipid Z13.220 [facility] [id number] [place] [address] 12 Dec, 2015 [facility] [id number] [place] [address] 07 Dec, 2015 [facility] [id number] [place] [address] 2015 Pain with swallowing R13.10 [facility] [id number] [place] [address] Nov, [facility] [id number] [place] [address] Nov, [facility] [id number] [place] [address] Oct, [facility] [id number] [place] [address] 15 Sep, 2015 [facility] [address] [place] [address] 07 Sep, 2015 Osteoarthritis, unspecified osteoarthritis type, unspecified site M19.90 [facility] [address] [address] 07 Sep, 2015 Back pain M54.9 [facility] [id number] [place] [address] Sep, Lumbago with sciatica, right side M54.41 and Bilateral impacted cerumen H61.23 [facility] [id number] [place] [address] Sep, [facility] [address] [address] August, Bronchitis J40 [facility] [address] [address] August, [facility] [address] [address] August, [facility] [id number] [place] [address] August, [facility] [id number] [place] [address] Jul, [facility] [id number] [place] [address] Jul, Back pain M54.9 [facility] [id number] [place] [address] Jun, Degenerative disc disease at L5-S1 level M51.36 and Bronchitis J40 [facility] [id number] [place] [address] Jun, [facility] [id number] [place] [address] May, [facility] [id number] [place] [address] Apr, [facility] [address], [place] [address] Mar, [facility] [id number] [place] [address] Mar, [facility] [id number] [place] [address] Feb, [facility] [id number] [place] [address] Jan, [facility] [id number] [place] [address] Dec, [facility] [id number] [place] [address] Nov, [facility] [id number] [place] [address] Oct, [facility] [id number] [place] [address] Oct, Right shoulder pain 719.41 [facility] [id number] [place] [address] Sep, [facility] [id number] [place] [address] Sep, Vertigo 780.4 and Elbow fracture, right 812.40 [facility] [id number] [place] [address] Sep, [facility] [id number] [place] [address] August, [facility] [id number] [place] [address] 14 Jul, 2014 [facility] [address], [place] [address] Jul, [facility] [id number] [place] [address] Jun, [facility] [place] [facility] [address] [id number] [place] [address] Jun, [facility] [place] [facility] [address] [id number] [place] [address] Jun, [facility] [place] [facility] [address] [id number] [place] [address] Jun, [facility] [place] [facility] [address] [id number] [place] [address] Jun, [facility] [place] [facility] [address] [id number] [place] [address] Jun, [facility] [place] [facility] [address] [id number] [place] [address] May, [facility] [place] [facility] [address] [id number] [place] [address] May, [facility] [place] [facility] [address] [id number] [place] [address] May, [facility] [place] [facility] [address] [id number] [place] [address] May, [facility] [place] [facility] [address] [id number] [place] [address] May, [facility] [place] [facility] [address] [id number] [place] [address] May, [facility] [place] [facility] [address] [id number] [place] [address] Apr, [facility] [place] [facility] [address] [id number] [place] [address] Apr, [facility] [place] [facility] [address] [id number] [place] [address] Apr, [facility] [place] [facility] [address] [id number] [place] [address] Apr, [facility] [place] [facility] [address] [id number] [place] [address] Apr, [facility] [address] [id number] [place] [address] Apr, [facility] [place] [facility] [address] [id number] [place] [address] Apr, [facility] [address] [id number] [place] [address] Mar, [facility] [place] [facility] [address] [id number] [place] [address] Mar, [facility] [place] [facility] [address] [id number] [place] [address] Mar, [facility] [place] [facility] [address] [id number] [place] [address] Mar, [facility] [place] [facility] [address] [id number] [place] [address] Mar, [facility] [place] [facility] [address] [id number] [place] [address] Mar, [facility] [place] [facility] [address] [id number] [place] [address] Mar, [facility] [place] [facility] [address] [id number] [place] [address] Mar, [facility] [place] [facility] [address] [id number] [place] [address] Mar, [facility] [place] [facility] [address] [id number] [place] [address] Mar, [facility] [place] [facility] [address] [id number] [place] [address] Mar, [facility] [place] [facility] [address] [id number] [place] [address] Mar, [facility] [place] [facility] [address] [id number] [place] [address] Mar, [facility] [place] [facility] [address] [id number] [place] [address] Mar, [facility] [place] [facility] [address] [id number] [place] [address] Mar, [facility] [place] [facility] [address] [id number] [place] [address] Feb, [facility] [place] [facility] [address] [id number] [place] [address] Feb, [facility] [place] [facility] [address] [id number] [place] [address] Feb, [facility] [place] [facility] [address] [id number] [place] [address] Feb, [facility] [place] [facility] [address] [id number] [place] [address] Feb, [facility] [place] [facility] [address] [id number] [place] [address] Feb, [facility] [place] [facility] [address] [id number] [place] [address] Jan, [facility] [place] [facility] [address] [id number] [place] [address] Jan, [facility] [place] [facility] [address] [id number] [place] [address] Jan, [facility] [place] [facility] [address] [id number] [address] Jan, [facility] [place] [facility] [address] [id number] [place] [address] Jan, [facility] [place] [facility] [address] [id number] [place] [address] Jan, [facility] [place] [facility] [address] [id number] [place] [address] Dec, [facility] [place] [facility] [address] [id number] [place] [address] 29 Dec, 2013 [facility] [place] [facility] [address] [id number] [place] [address] 26 Dec, 2013 [facility] [place] [facility] [address] [id number] [place] [address] 11 Dec, 2013 [facility] [place] [facility] [address] [id number] [place] [address] 11 Dec, 2013 [facility] [place] [facility] [address] [id number] [place] [address] 08 Dec, 2013 [facility] [place] [facility] [address] [id number] [place] [address] 08 Dec, 2013 [facility] [place] [facility] [address] [id number] [place] [address] 08 Dec, 2013 [facility] [place] [facility] [address] [id number] [place] [address] 08 Dec, 2013 [facility] [place] [facility] [address] [id number] [place] [address] Dec, 2013 [facility] [place] [facility] [address] [id number] [place] [address] Dec, 2013 [facility] [place] [facility] [address] [id number] [place] [address] Nov, [facility] [place] [facility] [address] [id number] [place] [address] Nov, 2013 [facility] [place] [facility] [address] [id number] [place] [address] Nov, [facility] [place] [facility] [address] [id number] [place] [address] Nov, [facility] [place] [facility] [address] [id number] [place] [address] Nov, [facility] [place] [facility] [address] [id number] [place] [address] Nov, [facility] [place] [facility] [address] [id number] [facility] [place] [address] Nov, [facility] [place] [facility] [address] [id number] [facility] [place] [address] Nov, [facility] [place] [facility] [address] [id number] [place] [address] Nov, [facility] [place] [facility] [address] [id number] [place] [address] Nov, [facility] [place] [facility] [address] [id number] [place] [address] Oct, [facility] [place] [facility] [address] [id number] [place] [address] Oct, [facility] [place] [facility] [address] [id number] [place] [address] Oct, [facility] [place] [facility] [address] [id number] [place] [address] Oct, [facility] [place] [facility] [address] [id number] [place] [address] Oct, [facility] [place] [facility] [address] [id number] [place] [address] Oct, [facility] [place] [facility] [address] [id number] [place] [address] Oct, [facility] [place] [facility] [address] [id number] [place] [address] Oct, [facility] [place] [facility] [address] [id number] [facility] [place] [address] Oct, [facility] [place] [facility] [address] [id number] [place] [address] Oct, [facility] [place] [facility] [address] [id number] [place] [address] Oct, [facility] [place] [facility] [address] [id number] [place] [address] Oct, [facility] [place] [facility] [address] [id number] [place] [address] Oct, [facility] [place] [facility] [address] [id number] [place] [address] Sep, [facility] [place] [facility] [address] [id number] [place] [address] Sep, [facility] [place] [facility] [address] [id number] [place] [address] Sep, [facility] [place] [facility] [address] [id number] [place] [address] Sep, [facility] [place] [facility] [address] [id number] [place] [address] August, [facility] [place] [facility] [address] [id number] [place] [address] August, [facility] [place] [facility] [address] [id number] [place] [address] August, [facility] [place] [facility] [address] [id number] [place] [address] August, [facility] [place] [facility] [address] [id number] [place] [address] August, [facility] [place] [facility] [address] [id number] [place] [address] August, [facility] [place] [facility] [address] [id number] [place] [address] August, [facility] [place] [facility] [address] [id number] [place] [address] August, [facility] [place] [facility] [address] [id number] [place] [address] Jul, [facility] [place] [facility] [address] [id number] [place] [address] Jul, [facility] [place] [facility] [address] [id number] [place] [address] Jun, [facility] [place] [facility] [address] [id number] [place] [address] Jun, [facility] [place] [facility] [address] [id number] [place] [address] Jun, [facility] [place] [facility] [address] [id number] [place] [address] Jun, [facility] [place] [facility] [address] [id number] [place] [address] Jun, [facility] [place] [facility] [address] [id number] [place] [address] Jun, [facility] [place] [facility] [address] [id number] [place] [address] May, [facility] [place] [facility] [address] [id number] [place] [address] May, [facility] [place] [facility] [address] [id number] [place] [address] May, [facility] [place] [facility] [address] [facility] [id number] [place] [address] May, [facility] [place] [facility] [address] [facility] [id number] [place] [address] May, [facility] [place] [facility] [address] [facility] [id number] [place] [address] May, [facility] [place] [facility] [address] [id number] [place] [address] Apr, [facility] [place] [facility] [address] [id number] [place] [address] Apr, [facility] [place] [facility] [address] [facility] [id number] [place] [address] 15 Feb, 2013 [facility] [place] [facility] [address] [id number] [place] [address] 15 Feb, 2013 [facility] [place] [facility] [address] [id number] [place] [address] 15 Feb, 2013 [facility] [place] [facility] [address] [id number] [place] [address] 15 Feb, 2013 [facility] [place] [facility] [address] [id number] [place] [address] Feb, [facility] [place] [facility] [address] [id number] [place] [address] Feb, [facility] [place] [facility] [address] [id number] [place] [address] Feb, [facility] [place] [facility] [address] [id number] [place] [address] Feb, [facility] [place] [facility] [address] [id number] [place] [address] Feb, [facility] [place] [facility] [address] [id number], [place] [address] Jan, [facility] [place] [facility] [address] [id number], [place] [address] Jan, [facility] [place] [facility] [address] [id number], [place] [address] Jan, [facility] [place] [facility] [address] [id number], [place] [address] 06 Jan, 2013 [facility] [place] [facility] [address] [id number], [place] [address] 04 Jan, 2013 [facility] [place] [facility] [address] [id number], [place] [address] 02 Jan, 2013 [facility] [place] [facility] [address] [id number], [place] [address] 17 Dec, 2012 [facility] [place] [facility] [address] [id number], [place] [address] 12 Dec, 2012 [facility] [place] [facility] [address] [id number] [place] [address] 05 Dec, 2012 [facility] [address] [id number] [place] [address] 05 Dec, 2012 [facility] [address] [id number] [place] [address] Oct, [facility] [address] [id number] [place] [address] Oct, [facility] [address] [id number] [place] [address] Oct, [facility] [address] [id number] [place] [address] Oct, [facility] [address] [id number] [place] [address] Oct, [facility] [address] [id number] [place] [address] Sep, [facility] [address] [id number] [place] [address] August, [facility] [address] [id number] [place] [address] August, [facility] [address] [id number] [place] [address] August, [facility] [address] [id number] [place] [address] August, [facility] [address] [id number] [place] [address] August, [facility] [place] [facility] [address] [id number] [place] [address] August, [facility] [address] [id number] [place] [address] August, [facility] [address] [id number] [place] [address] August, [facility] [place] [facility] [address] [id number] [place] [address] August, [facility] [address] [id number] [place] [address] August, [facility] [address] [id number] [place] [address] August, [facility] [address] [id number] [place] [address] August, [facility] [address] [id number] [place] [address] Jun, [facility] [address] [id number] [place] [address] Jun, [facility] [address] [id number] [place] [address] Jun, [facility] [address] [id number] [place] [address] May, [facility] [address] [id number] [place] [address] May, [facility] [address] [id number] [place] [address] Mar, [facility] [address] [id number] [place] [address] Mar, [facility] [address] [id number] [place] [address] Feb, [facility] [place] [facility] [address] [id number] [place] [address] Feb, [facility] [place] [facility] [address] [id number] [place] [address] Feb, [facility] [place] [facility] [address] [id number] [place] [address] Feb, [facility] [address] [id number], [place] [address] Dec, [facility] [address] [id number] [place] [address] August, [facility] [address] [id number] [place] [address] Jul, [facility] [address] [facility] [id number] [place] [address] Jul, [facility] [address] [id number] [place] [address] Jun, [facility] [address] [id number] [place] [address] Jun, [facility] [address] [facility] [id number] [place] [address] Jun, [facility] [address] [id number] [address] Jun, [facility] [place] [facility] [address] [facility] [id number] [place] [address] Jun, [facility] [address] [facility] [id number] [place] [address] May, [facility] [place] [facility] [address] [facility] [id number] [place] [address] May, [facility] [address] [facility] [id number] [place] [address] May, [facility] [place] [facility] [address] [facility] [id number], [place] [address] May, [facility] [place] [facility] [address] [id number], [place] [address] Apr, [facility] [place] [facility] [address] [id number], [place] [address] Apr, [facility] [place] [facility] [address] [facility] [id number], [place] [address] Apr, [facility] [place] [facility] [address] [id number], [place] [address] Mar, [facility] [id number], [place] [address] Mar, [facility] [id number], [place] [address] Mar, [facility] [id number], [place] [address] Mar, [facility] [id number], [place] [address] May, [facility] [id number] [place] [address] Feb, [facility] [id number], [place] [address] Feb, [facility] [id number], [place] [address] Jan, [facility] [address] [id number], [place] [address] Jan, IMMUNIZATIONS No Known Immunizations SOCIAL HISTORY Never Assessed REASON FOR VISIT [facility] PLAN OF CARE VITAL SIGNS MEDICATIONS [...]
--- OUTSIDE RECORDS SUMMARY | 2018-09-19 01:15 | XMS REPORT ---
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 Active 972717625 Problem Benign prostatic hyperplasia, unspecified whether lower urinary tract symptoms present N40.0 Active 971701614 Problem Screening, lipid Z13.220 Active 391802288 Problem Shortness of breath R06.02 Active 739187023 Problem 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 Active 590711543 Problem Osteoarthritis, unspecified osteoarthritis type, unspecified site M19.90 Active 269380721 Problem Other chronic pain G89.29 Active 42455285 Problem Gastroesophageal reflux disease without esophagitis K21.9 Active 830579503 ALLERGIES No Information ENCOUNTERS Encounter Location Date Diagnosis [place] [id number] [place] [address] Jun, Osteoarthritis, unspecified osteoarthritis type, unspecified site M19.90 [place] [id number] [place] [address] Jun, [facility] [id number] [place] [address] May, Osteoarthritis, unspecified osteoarthritis type, unspecified site M19.90 [facility] [id number] [place] [address] May, [facility] [id number] [place] [address] May, [facility] [id number] [place] [address] May, Osteopenia determined by x-ray M85.80 ; Shortness of breath R06.02 and Screening, lipid Z13.220 [place] [address], [place] [address] May, [place] [address] [id number] [place] [address] Apr, Osteoarthritis, unspecified osteoarthritis type, unspecified site M19.90 [place] [id number] [address] Apr, Other trim attacher (current) drug therapy Z79.899 [place] [address] [id number] [place] [address] Apr, [place] [address] [id number] [place] [address] Apr, Osteoarthritis, unspecified osteoarthritis type, unspecified site M19.90 [place] [address], [place] [address] Mar, [place] [address] [id number] [place] [address] Mar, Encounter for Medicare annual wellness exam Z00.00 ; Osteoarthritis, unspecified osteoarthritis type, unspecified site M19.90 ; Benign prostatic hyperplasia, unspecified whether lower urinary tract symptoms present N40.0 ; 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 and At high risk for osteoporosis Z91.89 [place] [address], [place] [address] Mar, Osteoarthritis, unspecified osteoarthritis type, unspecified site M19.90 [place] [address], [place] [address] Feb, [place] [address] [place] [address] Feb, Osteoarthritis, unspecified osteoarthritis type, unspecified site M19.90 [place] [address], [place] [address] Jan, [facility] [id number] [place] [address] Jan, Osteoarthritis, unspecified osteoarthritis type, unspecified site M19.90 [facility] [address], [place] [address] 08 Jan, 2018 Low back pain M54.5 and Other chronic pain G89.29 [facility] [id number] [address] Dec, Osteoarthritis, unspecified osteoarthritis type, unspecified site M19.90 [facility] [address] [id number] [place] [address] Dec, [facility] [id number] [address] Nov, Osteoarthritis, unspecified osteoarthritis type, unspecified site M19.90 [facility] [address], [place] [address] Nov, Shortness of breath R06.02 [facility] [address], [place] [address] Nov, [facility] [address], [place] [address] Nov, [facility] [address], [place] [address] Oct, Osteoarthritis, unspecified osteoarthritis type, unspecified site M19.90 [facility] [address], [place] [address] Sep, [facility] [address], [place] [address] Sep, Osteoarthritis, unspecified osteoarthritis type, unspecified site M19.90 [facility] [id number] [address] August, Other chronic pain G89.29 and Other specified personal risk factors, not elsewhere classified Z91.89 [place] [address] [id number] [place] [address] August, Osteoarthritis, unspecified osteoarthritis type, unspecified site M19.90 [place] [address] [id number] [place] [address] Jul, Osteoarthritis, unspecified osteoarthritis type, unspecified site M19.90 [place] [address] [address] [id number] [place] [address] Jun, Osteoarthritis, unspecified osteoarthritis type, unspecified site M19.90 [place] [address] [id number] [place] [address] Jun, [place] [address] [address] [id number] [place] [address] Jun, Osteoarthritis, unspecified osteoarthritis type, unspecified site M19.90 [place] [address] [id number] [place] [address] May, [place] [address] [id number] [place] [address] May, Benign prostatic hyperplasia, unspecified whether lower urinary tract symptoms present N40.0 [place] [address] [id number] [place] [address] May, Osteoarthritis, unspecified osteoarthritis type, unspecified site M19.90 [place] [address] [id number] [place] [address] May, [place] [address] [address] [id number] [place] [address] Apr, Other chronic pain G89.29 ; Family history of diabetes mellitus Z83.3 ; Forgetfulness R68.89 ; History of multiple concussions Z87.820 ; Gastroesophageal reflux disease without esophagitis K21.9 and Screening, lipid Z13.220 [place] [address] [address] [address] Apr, Other chronic pain G89.29 ; Forgetfulness R68.89 ; History of multiple concussions Z87.820 ; Gastroesophageal reflux disease without esophagitis K21.9 ; Screening, lipid Z13.220 and Family history of diabetes mellitus Z83.3 [place] [address] [address], [place] [address] Apr, Osteoarthritis, unspecified osteoarthritis type, unspecified site M19.90 [place] [address] [id number] [place] [address] Apr, Osteoarthritis, unspecified osteoarthritis type, unspecified site M19.90 [place] [address] [id number] [place] [address] Apr, [place] [address] [id number] [place] [address] Mar, Osteoarthritis, unspecified osteoarthritis type, unspecified site M19.90 [place] [address] [id number] [place] [address] Feb, Osteoarthritis, unspecified osteoarthritis type, unspecified site M19.90 [place] [address] [place] [id number] [place] [address] Jan, Osteoarthritis, unspecified osteoarthritis type, unspecified site M19.90 [place] [address] [address] [address] Dec, Osteoarthritis, unspecified osteoarthritis type, unspecified site M19.90 [place] [address], [place] [address] Dec, [place] [address] [place] [id number] [place] [address] Nov, Encounter for screening for lipid disorder Z13.220 [place] [address], [place] [address] Nov, Osteoarthritis, unspecified osteoarthritis type, unspecified site M19.90 ; Encounter for screening for lipid disorder Z13.220 and Other chronic pain G89.29 [place] [address] [place] [id number] [place] [address] Nov, Osteoarthritis, unspecified osteoarthritis type, unspecified site M19.90 [facility] [id number] [place] [address] Nov, [place] [address] [place] [id number] [place] [address] Nov, [place] [address] [place] [address] [id number] [place] [address] Oct, Osteoarthritis, unspecified osteoarthritis type, unspecified site M19.90 [place] [address] [place] [address] [id number] [place] [address] Oct, Gastroesophageal reflux disease without esophagitis K21.9 [place] [address] [place] [id number] [place] [address] Sep, Osteoarthritis, unspecified osteoarthritis type, unspecified site M19.90 [place] [address] [place] [id number] [place] [address] August, Osteoarthritis, unspecified osteoarthritis type, unspecified site M19.90 [place] [address] [place] [id number] [place] [address] August, Osteoarthritis, unspecified osteoarthritis type, unspecified site M19.90 [facility] [id number] [place] [address] Jul, Osteoarthritis, unspecified osteoarthritis type, unspecified site M19.90 and Gastroesophageal reflux disease without esophagitis K21.9 [facility] [address] [id number] [place] [address] Jul, Osteoarthritis, unspecified osteoarthritis type, unspecified site M19.90 [facility] [id number] [place] [address] Jun, Ventral hernia without obstruction or gangrene K43.9 [facility] [address], [place] [address] Jun, Osteoarthritis, unspecified osteoarthritis type, unspecified site M19.90 [facility] [id number], [place] [address] May, [facility] [id number] [place] [address] May, Osteoarthritis, unspecified osteoarthritis type, unspecified site M19.90 [facility] [id number] [place] [address] Apr, Osteoarthritis, unspecified osteoarthritis type, unspecified site M19.90 [facility] [id number] [place] [address] Mar, [facility] [address] [id number] [place] [address] Mar, Osteoarthritis, unspecified osteoarthritis type, unspecified site M19.90 and Lumbago with sciatica, left side M54.42 [facility] [id number] [place] [address] Feb, [facility] [id number] [place] [address] Feb, [facility] [address], [place] [address] Feb, Osteoarthritis, unspecified osteoarthritis type, unspecified site M19.90 [facility] [address], [place] [address] Feb, [facility] [id number] [place] [address] Feb, Low back pain M54.5 and Other chronic pain G89.29 [facility] [id number] [place] [address] Feb, [facility] [id number] [place] [address] Jan, [facility] [id number] [place] [address] Jan, [facility] [id number] [place] [address] 24 Dec, 2015 Lumbago with sciatica, left side M54.42 [facility] [id number] [place] [address] 15 Dec, 2015 Irritable bowel syndrome with both constipation and diarrhea K58.0 ; Screening, lipid Z13.220 ; Nocturia R35.1 ; Family history of diabetes mellitus Z83.3 and Dysuria R30.0 [facility] [address] [id number] [place] [address] 14 Dec, 2015 Irritable bowel syndrome with both constipation and diarrhea K58.0 ; Nocturia R35.1 ; Family history of diabetes mellitus Z83.3 ; Dysuria R30.0 and Screening, lipid Z13.220 [facility] [id number] [place] [address] 12 Dec, 2015 [facility] [id number] [place] [address] 07 Dec, 2015 [facility] [id number] [place] [address] 2015 Pain with swallowing R13.10 [facility] [id number] [place] [address] Nov, [facility] [id number] [place] [address] Nov, [facility] [id number] [place] [address] Oct, [facility] [id number] [place] [address] 15 Sep, 2015 [facility] [address] [place] [address] 07 Sep, 2015 Osteoarthritis, unspecified osteoarthritis type, unspecified site M19.90 [facility] [address] [address] 07 Sep, 2015 Back pain M54.9 [facility] [id number] [place] [address] Sep, Lumbago with sciatica, right side M54.41 and Bilateral impacted cerumen H61.23 [facility] [id number] [place] [address] Sep, [facility] [address] [address] August, Bronchitis J40 [facility] [address] [address] August, [facility] [address] [address] August, [facility] [id number] [place] [address] August, [facility] [id number] [place] [address] Jul, [facility] [id number] [place] [address] Jul, Back pain M54.9 [facility] [id number] [place] [address] Jun, Degenerative disc disease at L5-S1 level M51.36 and Bronchitis J40 [facility] [id number] [place] [address] Jun, [facility] [id number] [place] [address] May, [facility] [id number] [place] [address] Apr, [facility] [address], [place] [address] Mar, [facility] [id number] [place] [address] Mar, [facility] [id number] [place] [address] Feb, [facility] [id number] [place] [address] Jan, [facility] [id number] [place] [address] Dec, [facility] [id number] [place] [address] Nov, [facility] [id number] [place] [address] Oct, [facility] [id number] [place] [address] Oct, Right shoulder pain 719.41 [facility] [id number] [place] [address] Sep, [facility] [id number] [place] [address] Sep, Vertigo 780.4 and Elbow fracture, right 812.40 [facility] [id number] [place] [address] Sep, [facility] [id number] [place] [address] August, [facility] [id number] [place] [address] 14 Jul, 2014 [facility] [address], [place] [address] Jul, [facility] [id number] [place] [address] Jun, [facility] [place] [facility] [address] [id number] [place] [address] Jun, [facility] [place] [facility] [address] [id number] [place] [address] Jun, [facility] [place] [facility] [address] [id number] [place] [address] Jun, [facility] [place] [facility] [address] [id number] [place] [address] Jun, [facility] [place] [facility] [address] [id number] [place] [address] Jun, [facility] [place] [facility] [address] [id number] [place] [address] May, [facility] [place] [facility] [address] [id number] [place] [address] May, [facility] [place] [facility] [address] [id number] [place] [address] May, [facility] [place] [facility] [address] [id number] [place] [address] May, [facility] [place] [facility] [address] [id number] [place] [address] May, [facility] [place] [facility] [address] [id number] [place] [address] May, [facility] [place] [facility] [address] [id number] [place] [address] Apr, [facility] [place] [facility] [address] [id number] [place] [address] Apr, [facility] [place] [facility] [address] [id number] [place] [address] Apr, [facility] [place] [facility] [address] [id number] [place] [address] Apr, [facility] [place] [facility] [address] [id number] [place] [address] Apr, [facility] [address] [id number] [place] [address] Apr, [facility] [place] [facility] [address] [id number] [place] [address] Apr, [facility] [address] [id number] [place] [address] Mar, [facility] [place] [facility] [address] [id number] [place] [address] Mar, [facility] [place] [facility] [address] [id number] [place] [address] Mar, [facility] [place] [facility] [address] [id number] [place] [address] Mar, [facility] [place] [facility] [address] [id number] [place] [address] Mar, [facility] [place] [facility] [address] [id number] [place] [address] Mar, [facility] [place] [facility] [address] [id number] [place] [address] Mar, [facility] [place] [facility] [address] [id number] [place] [address] Mar, [facility] [place] [facility] [address] [id number] [place] [address] Mar, [facility] [place] [facility] [address] [id number] [place] [address] Mar, [facility] [place] [facility] [address] [id number] [place] [address] Mar, [facility] [place] [facility] [address] [id number] [place] [address] Mar, [facility] [place] [facility] [address] [id number] [place] [address] Mar, [facility] [place] [facility] [address] [id number] [place] [address] Mar, [facility] [place] [facility] [address] [id number] [place] [address] Mar, [facility] [place] [facility] [address] [id number] [place] [address] Feb, [facility] [place] [facility] [address] [id number] [place] [address] Feb, [facility] [place] [facility] [address] [id number] [place] [address] Feb, [facility] [place] [facility] [address] [id number] [place] [address] Feb, [facility] [place] [facility] [address] [id number] [place] [address] Feb, [facility] [place] [facility] [address] [id number] [place] [address] Feb, [facility] [place] [facility] [address] [id number] [place] [address] Jan, [facility] [place] [facility] [address] [id number] [place] [address] Jan, [facility] [place] [facility] [address] [id number] [place] [address] Jan, [facility] [place] [facility] [address] [id number], [place] [address] Jan, [facility] [place] [facility] [address] [id number] [place] [address] Jan, [facility] [place] [facility] [address] [id number] [place] [address] Jan, [facility] [place] [facility] [address] [id number] [place] [address] Dec, [facility] [place] [facility] [address] [id number] [place] [address] 29 Dec, 2013 [facility] [place] [facility] [address] [id number] [place] [address] 26 Dec, 2013 [facility] [place] [facility] [address] [id number] [place] [address] 11 Dec, 2013 [facility] [place] [facility] [address] [id number] [place] [address] 11 Dec, 2013 [facility] [place] [facility] [address] [id number] [place] [address] 08 Dec, 2013 [facility] [place] [facility] [address] [id number] [place] [address] 08 Dec, 2013 [facility] [place] [facility] [address] [id number] [place] [address] 08 Dec, 2013 [facility] [place] [facility] [address] [id number] [place] [address] 08 Dec, 2013 [facility] [place] [facility] [address] [id number] [place] [address] Dec, 2013 [facility] [place] [facility] [address] [id number] [place] [address] Dec, 2013 [facility] [place] [facility] [address] [id number] [place] [address] Nov, [facility] [place] [facility] [address] [id number] [place] [address] Nov, 2013 [facility] [place] [facility] [address] [id number] [place] [address] Nov, [facility] [place] [facility] [address] [id number] [place] [address] Nov, [facility] [place] [facility] [address] [id number] [place] [address] Nov, [facility] [place] [facility] [address] [id number] [place] [address] Nov, [facility] [place] [facility] [address] [id number] [facility] [place] [address] Nov, [facility] [place] [facility] [address] [id number] [facility] [place] [address] Nov, [facility] [place] [facility] [address] [id number] [place] [address] Nov, [facility] [place] [facility] [address] [id number] [place] [address] Nov, [facility] [place] [facility] [address] [id number] [place] [address] Oct, [facility] [place] [facility] [address] [id number] [place] [address] Oct, [facility] [place] [facility] [address] [id number] [place] [address] Oct, [facility] [place] [facility] [address] [id number] [place] [address] Oct, [facility] [place] [facility] [address] [id number] [place] [address] Oct, [facility] [place] [facility] [address] [id number] [place] [address] Oct, [facility] [place] [facility] [address] [id number] [place] [address] Oct, [facility] [place] [facility] [address] [id number] [place] [address] Oct, [facility] [place] [facility] [address] [id number] [facility] [place] [address] Oct, [facility] [place] [facility] [address] [id number] [place] [address] Oct, [facility] [place] [facility] [address] [id number] [place] [address] Oct, [facility] [place] [facility] [address] [id number] [place] [address] Oct, [facility] [place] [facility] [address] [id number] [place] [address] Oct, [facility] [place] [facility] [address] [id number] [place] [address] Sep, [facility] [place] [facility] [address] [id number] [place] [address] Sep, [facility] [place] [facility] [address] [id number] [place] [address] Sep, [facility] [place] [facility] [address] [id number] [place] [address] Sep, [facility] [place] [facility] [address] [id number] [place] [address] August, [facility] [place] [facility] [address] [id number] [place] [address] August, [facility] [place] [facility] [address] [id number] [place] [address] August, [facility] [place] [facility] [address] [id number] [place] [address] August, [facility] [place] [facility] [address] [id number] [place] [address] August, [facility] [place] [facility] [address] [id number] [place] [address] August, [facility] [place] [facility] [address] [id number] [place] [address] August, [facility] [place] [facility] [address] [id number] [place] [address] August, [facility] [place] [facility] [address] [id number] [place] [address] Jul, [facility] [place] [facility] [address] [id number] [place] [address] Jul, [facility] [place] [facility] [address] [id number] [place] [address] Jun, [facility] [place] [facility] [address] [id number] [place] [address] Jun, [facility] [place] [facility] [address] [id number] [place] [address] Jun, [facility] [place] [facility] [address] [id number] [place] [address] Jun, [facility] [place] [facility] [address] [id number] [place] [address] Jun, [facility] [place] [facility] [address] [id number] [place] [address] Jun, [facility] [place] [facility] [address] [id number] [place] [address] May, [facility] [place] [facility] [address] [id number] [place] [address] May, [facility] [place] [facility] [address] [id number] [place] [address] May, [facility] [place] [facility] [address] [facility] [id number] [place] [address] May, [facility] [place] [facility] [address] [facility] [id number] [place] [address] May, [facility] [place] [facility] [address] [facility] [id number] [place] [address] May, [facility] [place] [facility] [address] [id number] [place] [address] Apr, [facility] [place] [facility] [address] [id number] [place] [address] Apr, [facility] [place] [facility] [address] [facility] [id number] [place] [address] 15 Feb, 2013 [facility] [place] [facility] [address] [id number] [place] [address] 15 Feb, 2013 [facility] [place] [facility] [address] [id number] [place] [address] 15 Feb, 2013 [facility] [place] [facility] [address] [id number] [place] [address] 15 Feb, 2013 [facility] [place] [facility] [address] [id number] [place] [address] Feb, [facility] [place] [facility] [address] [id number] [place] [address] Feb, [facility] [place] [facility] [address] [id number] [place] [address] Feb, [facility] [place] [facility] [address] [id number] [place] [address] Feb, [facility] [place] [facility] [address] [id number] [place] [address] Feb, [facility] [place] [facility] [address] [id number], [place] [address] Jan, [facility] [place] [facility] [address] [id number], [place] [address] Jan, [facility] [place] [facility] [address] [id number], [place] [address] Jan, [facility] [place] [facility] [address] [id number], [place] [address] 06 Jan, 2013 [facility] [place] [facility] [address] [id number], [place] [address] 04 Jan, 2013 [facility] [place] [facility] [address] [id number], [place] [address] 02 Jan, 2013 [facility] [place] [facility] [address] [id number], [place] [address] 17 Dec, 2012 [facility] [place] [facility] [address] [id number], [place] [address] 12 Dec, 2012 [facility] [place] [facility] [address] [id number] [place] [address] 05 Dec, 2012 [facility] [address] [id number] [place] [address] 05 Dec, 2012 [facility] [address] [id number] [place] [address] Oct, [facility] [address] [id number] [place] [address] Oct, [facility] [address] [id number] [place] [address] Oct, [facility] [address] [id number] [place] [address] Oct, [facility] [address] [id number] [place] [address] Oct, [facility] [address] [id number] [place] [address] Sep, [facility] [address] [id number] [place] [address] August, [facility] [address] [id number] [place] [address] August, [facility] [address] [id number] [place] [address] August, [facility] [address] [id number] [place] [address] August, [facility] [address] [id number] [place] [address] August, [facility] [place] [facility] [address] [id number] [place] [address] August, [facility] [address] [id number] [place] [address] August, [facility] [address] [id number] [place] [address] August, [facility] [address] [id number] [place] [address] August, [facility] [address] [id number] [place] [address] August, [facility] [address] [id number] [place] [address] August, [facility] [address] [id number] [place] [address] August, [facility] [address] [id number] [place] [address] Jun, [facility] [address] [id number] [place] [address] Jun, [facility] [address] [id number] [place] [address] Jun, [facility] [address] [id number] [place] [address] May, [facility] [address] [id number] [place] [address] May, [facility] [address] [id number] [place] [address] Mar, [facility] [address] [id number] [place] [address] Mar, [facility] [address] [id number] [place] [address] Feb, [facility] [place] [facility] [address] [id number] [place] [address] Feb, [facility] [place] [facility] [address] [id number] [place] [address] Feb, [facility] [place] [facility] [address] [id number] [place] [address] Feb, [facility] [address] [id number], [place] [address] Dec, [facility] [address] [id number] [place] [address] August, [facility] [address] [id number] [place] [address] Jul, [facility] [address] [facility] [id number] [place] [address] Jul, [facility] [address] [id number] [place] [address] Jun, [facility] [address] [id number] [place] [address] Jun, [facility] [address] [facility] [id number] [place] [address] Jun, [facility] [address] [id number] [place] [address] Jun, [facility] [place] [facility] [address] [facility] [id number] [place] [address] Jun, [facility] [address] [facility] [id number] [place] [address] May, [facility] [place] [facility] [address] [facility] [id number] [place] [address] May, [facility] [address] [facility] [id number] [place] [address] May, [facility] [place] [facility] [address] [facility] [id number], [place] [address] May, [facility] [place] [facility] [address] [id number], [place] [address] Apr, [facility] [place] [facility] [address] [id number], [place] [address] Apr, [facility] [place] [facility] [address] [facility] [id number], [place] [address] Apr, [facility] [place] [facility] [address] [id number], [place] [address] Mar, [facility] [id number], [place] [address] Mar, [facility] [id number], [place] [address] Mar, [facility] [id number], [place] [address] Mar, [facility] [id number], [place] [address] May, [facility] [id number] [place] [address] Feb, [facility] [id number], [place] [address] Feb, [facility] [id number], [place] [address] Jan, [facility] [address] [id number], [place] [address] Jan, IMMUNIZATIONS No Known Immunizations SOCIAL HISTORY Never Assessed REASON FOR VISIT [facility] PLAN OF CARE VITAL SIGNS MEDICATIONS Unknown [...]
[2018-09-19 01:16] VITALS: BP 145/80
--- OUTSIDE RECORDS SUMMARY | 2018-09-19 01:16 | XMS REPORT ---
Author Author Migration, Doctor Organization [facility] Address Unknown Phone Unavailable Care Team Providers Care Heel Burnisher Name Role Phone Migration, Doctor Unavailable Unavailable PROBLEMS Type Condition ICD9-CM Code AWZ64-IX Code Onset Dates Condition Status SNOMED Code Problem Other intermediate (current) drug therapy Z79.899 Active 431251929 Problem Encounter for therapeutic drug level monitoring Z51.81 Active 292860953 Problem 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 Active 686697403 Problem Benign prostatic hyperplasia, unspecified whether lower urinary tract symptoms present N40.0 Active 746303107 Problem Screening, lipid Z13.220 Active 378825616 Problem Shortness of breath R06.02 Active 681331194 Problem 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 Active 764976775 Problem Osteoarthritis, unspecified osteoarthritis type, unspecified site M19.90 Active 750361921 Problem Other chronic pain G89.29 Active 77262504 Problem Gastroesophageal reflux disease without esophagitis K21.9 Active 628447951 ALLERGIES No Information ENCOUNTERS Encounter Location Date Diagnosis [place] [id number] [place] [address] Jun, Osteoarthritis, unspecified osteoarthritis type, unspecified site M19.90 [place] [id number] [place] [address] Jun, [facility] [id number] [place] [address] May, Osteoarthritis, unspecified osteoarthritis type, unspecified site M19.90 [facility] [id number] [place] [address] May, [facility] [id number] [place] [address] May, 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 [place] [id number] [place] [address] Apr, [place] [id number] [place] [address] Apr, Osteoarthritis, unspecified osteoarthritis type, unspecified site M19.90 [place] [address], [place] [address] Mar, [place] [id number] [place] [address] Mar, Encounter for Medicare annual wellness exam Z00.00 ; Osteoarthritis, unspecified osteoarthritis type, unspecified site M19.90 ; Benign prostatic hyperplasia, unspecified whether lower urinary tract symptoms present N40.0 ; 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 and At high risk for osteoporosis Z91.89 [place] [address], [place] [address] Mar, Osteoarthritis, unspecified osteoarthritis type, unspecified site M19.90 [place] [address], [place] [address] Feb, [place] [address], [place] [address] Feb, Osteoarthritis, unspecified osteoarthritis type, unspecified site M19.90 [place] [address], [place] [address] Jan, [facility] [id number] [place] [address] Jan, Osteoarthritis, unspecified osteoarthritis type, unspecified site M19.90 [facility] [address], [place] [address] 08 Jan, 2018 Low back pain M54.5 and Other chronic pain G89.29 [facility] [id number] [address] Dec, Osteoarthritis, unspecified osteoarthritis type, unspecified site M19.90 [facility] [id number] [place] [address] Dec, [facility] [id number] [address] Nov, Osteoarthritis, unspecified osteoarthritis type, unspecified site M19.90 [facility] [address], [place] [address] Nov, Shortness of breath R06.02 [facility] [address], [place] [address] Nov, [facility] [address], [place] [address] Nov, [facility] [address], [place] [address] Oct, Osteoarthritis, unspecified osteoarthritis type, unspecified site M19.90 [facility] [address], [place] [address] Sep, [facility] [address], [place] [address] Sep, Osteoarthritis, unspecified osteoarthritis type, unspecified site M19.90 [facility] [id number] [address] August, Other chronic pain G89.29 and Other specified personal risk factors, not elsewhere classified Z91.89 [place] [id number] [place] [address] August, Osteoarthritis, unspecified osteoarthritis type, unspecified site M19.90 [place] [id number] [place] [address] Jul, Osteoarthritis, unspecified osteoarthritis type, unspecified site M19.90 [place] [id number] [place] [address] Jun, Osteoarthritis, unspecified osteoarthritis type, unspecified site M19.90 [place] [id number] [place] [address] Jun, [place] [id number] [place] [address] Jun, Osteoarthritis, unspecified osteoarthritis type, unspecified site M19.90 [place] [id number] [place] [address] May, [place] [id number] [place] [address] May, Benign prostatic hyperplasia, unspecified whether lower urinary tract symptoms present N40.0 [place] [id number] [place] [address] May, Osteoarthritis, unspecified osteoarthritis type, unspecified site M19.90 [place] [id number] [place] [address] May, [place] [id number] [place] [address] Apr, Other chronic pain G89.29 ; Family history of diabetes mellitus Z83.3 ; Forgetfulness R68.89 ; History of multiple concussions Z87.820 ; Gastroesophageal reflux disease without esophagitis K21.9 and Screening, lipid Z13.220 [place] [address] [address] Apr, Other chronic pain G89.29 ; Forgetfulness R68.89 ; History of multiple concussions Z87.820 ; Gastroesophageal reflux disease without esophagitis K21.9 ; Screening, lipid Z13.220 and Family history of diabetes mellitus Z83.3 [place] [id number], [place] [address] Apr, Osteoarthritis, unspecified osteoarthritis type, unspecified site M19.90 [place] [id number] [place] [address] Apr, Osteoarthritis, unspecified osteoarthritis type, unspecified site M19.90 [place] [id number] [place] [address] Apr, [place] [id number] [place] [address] Mar, Osteoarthritis, unspecified osteoarthritis type, unspecified site M19.90 [place] [id number] [place] [address] Feb, Osteoarthritis, unspecified osteoarthritis type, unspecified site M19.90 [place] [id number] [place] [address] Jan, Osteoarthritis, unspecified osteoarthritis type, unspecified site M19.90 [place] [id number], [place] [address] Dec, Osteoarthritis, unspecified osteoarthritis type, unspecified site M19.90 [place] [address], [place] [address] Dec, [place] [id number] [place] [address] Nov, Encounter for screening for lipid disorder Z13.220 [place] [address], [place] [address] Nov, Osteoarthritis, unspecified osteoarthritis type, unspecified site M19.90 ; Encounter for screening for lipid disorder Z13.220 and Other chronic pain G89.29 [place] [id number] [place] [address] Nov, Osteoarthritis, unspecified osteoarthritis type, unspecified site M19.90 [facility] [id number] [place] [address] Nov, [place] [id number] [place] [address] Nov, [place] [id number] [place] [address] Oct, Osteoarthritis, unspecified osteoarthritis type, unspecified site M19.90 [place] [id number] [place] [address] Oct, Gastroesophageal reflux disease without esophagitis K21.9 [place] [id number] [place] [address] Sep, Osteoarthritis, unspecified osteoarthritis type, unspecified site M19.90 [place] [id number] [place] [address] August, Osteoarthritis, unspecified osteoarthritis type, unspecified site M19.90 [place] [id number] [place] [address] August, Osteoarthritis, unspecified osteoarthritis type, unspecified site M19.90 [facility] [id number] [place] [address] Jul, Osteoarthritis, unspecified osteoarthritis type, unspecified site M19.90 and Gastroesophageal reflux disease without esophagitis K21.9 [facility] [id number] [place] [address] Jul, Osteoarthritis, unspecified osteoarthritis type, unspecified site M19.90 [facility] [id number] [place] [address] Jun, Ventral hernia without obstruction or gangrene K43.9 [facility] [address], [place] [address] Jun, Osteoarthritis, unspecified osteoarthritis type, unspecified site M19.90 [facility] [id number], [place] [address] May, [facility] [id number] [place] [address] May, Osteoarthritis, unspecified osteoarthritis type, unspecified site M19.90 [facility] [id number] [place] [address] Apr, Osteoarthritis, unspecified osteoarthritis type, unspecified site M19.90 [facility] [id number] [place] [address] Mar, [facility] [id number] [place] [address] Mar, Osteoarthritis, unspecified osteoarthritis type, unspecified site M19.90 and Lumbago with sciatica, left side M54.42 [facility] [id number] [place] [address] Feb, [facility] [id number] [place] [address] Feb, [facility] [address], [place] [address] Feb, Osteoarthritis, unspecified osteoarthritis type, unspecified site M19.90 [facility] [address], [place] [address] Feb, [facility] [id number] [place] [address] Feb, Low back pain M54.5 and Other chronic pain G89.29 [facility] [id number] [place] [address] Feb, [facility] [id number] [place] [address] Jan, [facility] [id number] [place] [address] Jan, [facility] [id number] [place] [address] 24 Dec, 2015 Lumbago with sciatica, left side M54.42 [facility] [id number] [place] [address] 15 Dec, 2015 Irritable bowel syndrome with both constipation and diarrhea K58.0 ; Screening, lipid Z13.220 ; Nocturia R35.1 ; Family history of diabetes mellitus Z83.[address] [facility] [id number] [place] [address] 14 Dec, 2015 Irritable bowel syndrome with both constipation and diarrhea K58.0 ; Nocturia R35.1 ; Family history of diabetes mellitus Z83.3 ; Dysuria R30.0 and Screening, lipid Z13.220 [facility] [id number] [place] [address] 12 Dec, 2015 [facility] [id number] [place] [address] 07 Dec, 2015 [facility] [id number] [place] [address] 2015 Pain with swallowing R13.10 [facility] [id number] [place] [address] Nov, [facility] [id number] [place] [address] Nov, [facility] [id number] [place] [address] Oct, [facility] [id number] [place] [address] 15 Sep, 2015 [facility] [address] [place] [address] 07 Sep, 2015 Osteoarthritis, unspecified osteoarthritis type, unspecified site M19.90 [facility] [address] [address] 07 Sep, [address] [facility] [id number] [place] [address] Sep, Lumbago with sciatica, right side M54.41 and Bilateral impacted cerumen H61.23 [facility] [id number] [place] [address] Sep, [facility] [address] [address] August, Bronchitis J40 [facility] [address] [address] August, [facility] [address] [address] August, [facility] [id number] [place] [address] August, [facility] [id number] [place] [address] Jul, [facility] [id number] [place] [address] Jul, Back pain M54.9 [facility] [id number] [place] [address] Jun, Degenerative disc disease at L5-S1 level M51.[address] [facility] [id number] [place] [address] Jun, [facility] [id number] [place] [address] May, [facility] [id number] [place] [address] Apr, [facility] [address], [place] [address] Mar, [facility] [id number] [place] [address] Mar, [facility] [id number] [place] [address] Feb, [facility] [id number] [place] [address] Jan, [facility] [id number] [place] [address] Dec, [facility] [id number] [place] [address] Nov, [facility] [id number] [place] [address] Oct, [facility] [id number] [place] [address] Oct, Right shoulder pain 719.41 [facility] [id number] [place] [address] Sep, [facility] [id number] [place] [address] Sep, Vertigo 780.4 and Elbow fracture, right 812.40 [facility] [id number] [place] [address] Sep, [facility] [id number] [place] [address] August, [facility] [id number] [place] [address] [address] Jul, [address] [facility] [address], [place] [address] Jul, [facility] [id number] [place] [address] Jun, [facility] [place] [facility] [address] [id number] [place] [address] Jun, [facility] [place] [facility] [address] [id number] [place] [address] Jun, [facility] [place] [facility] [address] [id number] [place] [address] Jun, [facility] [place] [facility] [address] [id number] [place] [address] Jun, [facility] [place] [facility] [address] [id number] [place] [address] Jun, [facility] [place] [facility] [address] [id number] [place] [address] May, [facility] [place] [facility] [address] [id number] [place] [address] May, [facility] [place] [facility] [address] [id number] [place] [address] May, [facility] [place] [facility] [address] [id number] [place] [address] May, [facility] [place] [facility] [address] [id number] [place] [address] May, [facility] [place] [facility] [address] [id number] [place] [address] May, [facility] [place] [facility] [address] [id number] [place] [address] Apr, [facility] [place] [facility] [address] [id number] [place] [address] Apr, [facility] [place] [facility] [address] [id number] [place] [address] Apr, [facility] [place] [facility] [address] [id number] [place] [address] Apr, [facility] [place] [facility] [address] [id number] [place] [address] Apr, [facility] [address] [id number] [place] [address] Apr, [facility] [place] [facility] [address] [id number] [place] [address] Apr, [facility] [address] [id number] [place] [address] Mar, [facility] [place] [facility] [address] [id number] [place] [address] Mar, [facility] [place] [facility] [address] [id number] [place] [address] Mar, [facility] [place] [facility] [address] [id number] [place] [address] Mar, [facility] [place] [facility] [address] [id number] [place] [address] Mar, [facility] [place] [facility] [address] [id number] [place] [address] Mar, [facility] [place] [facility] [address] [id number] [place] [address] Mar, [facility] [place] [facility] [address] [id number] [place] [address] Mar, [facility] [place] [facility] [address] [id number] [place] [address] Mar, [facility] [place] [facility] [address] [id number] [place] [address] Mar, [facility] [place] [facility] [address] [id number] [place] [address] Mar, [facility] [place] [facility] [address] [id number] [place] [address] Mar, [facility] [place] [facility] [address] [id number] [place] [address] Mar, [facility] [place] [facility] [address] [id number] [place] [address] Mar, [facility] [place] [facility] [address] [id number] [place] [address] Mar, [facility] [place] [facility] [address] [id number] [place] [address] Feb, [facility] [place] [facility] [address] [id number] [place] [address] Feb, [facility] [place] [facility] [address] [id number] [place] [address] Feb, [facility] [place] [facility] [address] [id number] [place] [address] Feb, [facility] [place] [facility] [address] [id number] [place] [address] Feb, [facility] [place] [facility] [address] [id number] [place] [address] Feb, [facility] [place] [facility] [address] [id number] [place] [address] Jan, [facility] [place] [facility] [address] [id number] [place] [address] Jan, [facility] [place] [facility] [address] [id number] [place] [address] Jan, [facility] [place] [facility] [address] [id number] [address] Jan, [facility] [place] [facility] [address] [id number] [place] [address] Jan, [facility] [place] [facility] [address] [id number] [place] [address] Jan, [facility] [place] [facility] [address] [id number] [place] [address] Dec, [facility] [place] [facility] [address] [id number] [place] [address] 29 Dec, 2013 [facility] [place] [facility] [address] [id number] [place] [address] 26 Dec, 2013 [facility] [place] [facility] [address] [id number] [place] [address] 11 Dec, 2013 [facility] [place] [facility] [address] [id number] [place] [address] 11 Dec, 2013 [facility] [place] [facility] [address] [id number] [place] [address] 08 Dec, 2013 [facility] [place] [facility] [address] [id number] [place] [address] 08 Dec, 2013 [facility] [place] [facility] [address] [id number] [place] [address] 08 Dec, 2013 [facility] [place] [facility] [address] [id number] [place] [address] 08 Dec, 2013 [facility] [place] [facility] [address] [id number] [place] [address] Dec, 2013 [facility] [place] [facility] [address] [id number] [place] [address] Dec, 2013 [facility] [place] [facility] [address] [id number] [place] [address] Nov, [facility] [place] [facility] [address] [id number] [place] [address] Nov, 2013 [facility] [place] [facility] [address] [id number] [place] [address] Nov, [facility] [place] [facility] [address] [id number] [place] [address] Nov, [facility] [place] [facility] [address] [id number] [place] [address] Nov, [facility] [place] [facility] [address] [address] [id number] [place] [address] Nov, [facility] [place] [facility] [address] [id number] [facility] [place] [address] Nov, [facility] [place] [facility] [address] [id number] [facility], [place] [address] Nov, [facility] [place] [facility] [address] [id number] [place] [address] Nov, [facility] [place] [facility] [address] [id number] [place] [address] Nov, [facility] [place] [facility] [address] [id number] [place] [address] Oct, [facility] [place] [facility] [address] [id number] [place] [address] Oct, [facility] [place] [facility] [address] [id number] [place] [address] Oct, [facility] [place] [facility] [address] [id number] [place] [address] Oct, [facility] [place] [facility] [address] [id number] [place] [address] Oct, [facility] [place] [facility] [address] [id number] [place] [address] Oct, [facility] [place] [facility] [address] [id number] [place] [address] Oct, [facility] [place] [facility] [address] [id number] [place] [address] Oct, [facility] [place] [facility] [address] [id number] [facility], [place] [address] Oct, [facility] [place] [facility] [address] [id number] [place] [address] Oct, [facility] [place] [facility] [address] [id number] [place] [address] Oct, [facility] [place] [facility] [address] [id number] [place] [address] Oct, [facility] [place] [facility] [address] [id number] [place] [address] Oct, [facility] [place] [facility] [address] [id number] [place] [address] Sep, [facility] [place] [facility] [address] [id number] [place] [address] Sep, [facility] [place] [facility] [address] [id number] [place] [address] Sep, [facility] [place] [facility] [address] [id number] [place] [address] Sep, [facility] [place] [facility] [address] [id number] [place] [address] August, [facility] [place] [facility] [address] [id number] [place] [address] August, [facility] [place] [facility] [address] [id number] [place] [address] August, [facility] [place] [facility] [address] [id number] [place] [address] August, [facility] [place] [facility] [address] [id number] [place] [address] August, [facility] [place] [facility] [address] [id number] [place] [address] August, [facility] [place] [facility] [address] [id number] [place] [address] August, [facility] [place] [facility] [address] [id number] [place] [address] August, [facility] [place] [facility] [address] [id number] [place] [address] Jul, [facility] [place] [facility] [address] [id number] [place] [address] Jul, [facility] [place] [facility] [address] [id number] [place] [address] Jun, [facility] [place] [facility] [address] [id number] [place] [address] Jun, [facility] [place] [facility] [address] [id number] [place] [address] Jun, [facility] [place] [facility] [address] [id number] [place] [address] Jun, [facility] [place] [facility] [address] [id number] [place] [address] Jun, [facility] [place] [facility] [address] [id number] [place] [address] Jun, [facility] [place] [facility] [address] [id number] [place] [address] May, [facility] [place] [facility] [address] [id number] [place] [address] May, [facility] [place] [facility] [address] [id number] [place] [address] May, [facility] [place] [facility] [address] [facility] [id number] [place] [address] May, [facility] [place] [facility] [address] [facility] [id number] [place] [address] May, [facility] [place] [facility] [address] [facility] [id number] [place] [address] May, [facility] [place] [facility] [address] [id number] [place] [address] Apr, [facility] [place] [facility] [address] [id number] [place] [address] Apr, [facility] [place] [facility] [address] [facility] [id number] [place] [address] 15 Feb, 2013 [facility] [place] [facility] [address] [id number] [place] [address] 15 Feb, 2013 [facility] [place] [facility] [address] [id number] [place] [address] 15 Feb, 2013 [facility] [place] [facility] [address] [id number] [place] [address] 15 Feb, 2013 [facility] [place] [facility] [address] [id number] [place] [address] Feb, [facility] [place] [facility] [address] [id number] [place] [address] Feb, [facility] [place] [facility] [address] [id number] [place] [address] Feb, [facility] [place] [facility] [address] [id number] [place] [address] Feb, [facility] [place] [facility] [address] [id number] [place] [address] Feb, [facility] [place] [facility] [address] [id number], [place] [address] Jan, [facility] [place] [facility] [address] [id number], [place] [address] Jan, [facility] [place] [facility] [address] [id number], [place] [address] Jan, [facility] [place] [facility] [address] [id number], [place] [address] 06 Jan, 2013 [facility] [place] [facility] [address] [id number], [place] [address] 04 Jan, 2013 [facility] [place] [facility] [address] [id number], [place] [address] 02 Jan, 2013 [facility] [place] [facility] [address] [id number], [place] [address] 17 Dec, 2012 [facility] [place] [facility] [address] [id number], [place] [address] 12 Dec, 2012 [facility] [place] [facility] [address] [id number] [place] [address] 05 Dec, 2012 [facility] [address] [id number] [place] [address] 05 Dec, 2012 [facility] [address] [id number] [place] [address] Oct, [facility] [address] [id number] [place] [address] Oct, [facility] [address] [id number] [place] [address] Oct, [facility] [address] [id number] [place] [address] Oct, [facility] [address] [id number] [place] [address] Oct, [facility] [address] [id number] [place] [address] Sep, [facility] [address] [id number] [place] [address] August, [facility] [address] [id number] [place] [address] August, [facility] [place] [address] [id number] [place] [address] August, [facility] [address] [id number] [place] [address] August, [facility] [address] [id number] [place] [address] August, [facility] [place] [facility] [address] [id number] [place] [address] August, [facility] [address] [id number] [place] [address] August, [facility] [place] [address] [id number] [place] [address] August, [facility] [address] [id number] [place] [address] August, [facility] [address] [id number] [place] [address] August, [facility] [place] [address] [id number] [place] [address] August, [facility] [address] [id number] [place] [address] August, [facility] [place] [address] [id number] [place] [address] Jun, [facility] [address] [id number] [place] [address] Jun, [facility] [place] [address] [id number] [place] [address] Jun, [facility] [address] [id number] [place] [address] May, [facility] [place] [address] [id number] [place] [address] May, [facility] [place] [address] [id number] [place] [address] Mar, [facility] [place] [address] [id number] [place] [address] Mar, [facility] [address] [id number] [place] [address] Feb, [facility] [place] [facility] [address] [id number] [place] [address] Feb, [facility] [place] [facility] [address] [id number] [place] [address] Feb, [facility] [place] [facility] [address] [id number] [place] [address] Feb, [facility] [address] [id number], [place] [address] Dec, [facility] [address] [id number] [place] [address] August, [facility] [address] [id number] [place] [address] Jul, [facility] [address] [facility] [id number] [place] [address] Jul, [facility] [address] [id number] [place] [address] Jun, [facility] [address] [id number] [place] [address] Jun, [facility] [address] [facility] [id number] [place] [address] Jun, [facility] [address] [id number] [place] [address] Jun, [facility] [place] [facility] [address] [facility] [id number] [place] [address] Jun, [facility] [address] [facility] [id number] [place] [address] May, [facility] [place] [facility] [address] [facility] [id number] [place] [address] May, [facility] [address] [facility] [id number] [place] [address] May, [facility] [place] [facility] [address] [facility] [id number], [place] [address] May, [facility] [place] [facility] [address] [id number], [place] [address] Apr, [facility] [place] [facility] [address] [id number], [place] [address] Apr, [facility] [place] [facility] [address] [facility] [id number], [place] [address] Apr, [facility] [place] [facility] [address] [id number], [place] [address] Mar, [facility] [id number] [address] Mar, [facility] [id number] [address] Mar, [facility] [id number] [address] Mar, [facility] [id number] [address] May, [facility] [id number] [place] [address] Feb, [facility] [id number] [address] Feb, [facility] [id number], [place] [address] Jan, [facility] [address] [id number], [place] [address] Jan, IMMUNIZATIONS No Known Immunizations SOCIAL HISTORY Never Assessed REASON FOR VISIT [facility] PLAN OF CARE VITAL SIGNS MEDICATIONS [...]
--- OUTSIDE RECORDS SUMMARY | 2018-09-19 01:17 | XMS REPORT ---
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 Active 255840016 Problem Benign prostatic hyperplasia, unspecified whether lower urinary tract symptoms present N40.0 Active 480430076 Problem Screening, lipid Z13.220 Active 000675577 Problem Shortness of breath R06.02 Active 501950064 Problem 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 Active 092194703 Problem Osteoarthritis, unspecified osteoarthritis type, unspecified site M19.90 Active 119292156 Problem Other chronic pain G89.29 Active 61520189 Problem Gastroesophageal reflux disease without esophagitis K21.9 Active 936985763 ALLERGIES No Information ENCOUNTERS Encounter Location Date Diagnosis [place] [id number] [place] [address] Jun, Osteoarthritis, unspecified osteoarthritis type, unspecified site M19.90 [place] [id number] [place] [address] Jun, [facility] [id number] [place] [address] May, Osteoarthritis, unspecified osteoarthritis type, unspecified site M19.90 [facility] [id number] [place] [address] May, [facility] [id number] [place] [address] May, [facility] [id number] [place] [address] May, Osteopenia determined by x-ray M85.80 ; Shortness of breath R06.02 and Screening, lipid Z13.220 [place] [address] [address] May, [place] [id number] [place] [address] Apr, Osteoarthritis, unspecified osteoarthritis type, unspecified site M19.90 [place] [id number], [place] [address] Apr, 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 therapy Z79.899 [place] [id number] [place] [address] Apr, [place] [id number] [place] [address] Apr, Osteoarthritis, unspecified osteoarthritis type, unspecified site M19.90 [place] [address] [address] Mar, [place] [id number] [place] [address] Mar, Encounter for Medicare annual wellness exam Z00.00 ; Osteoarthritis, unspecified osteoarthritis type, unspecified site M19.90 ; Benign prostatic hyperplasia, unspecified whether lower urinary tract symptoms present N40.0 ; 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 and At high risk for osteoporosis Z91.89 [place] [address] [address] Mar, Osteoarthritis, unspecified osteoarthritis type, unspecified site M19.90 [place] [address] [address] Feb, [place] [address] [address] Feb, Osteoarthritis, unspecified osteoarthritis type, unspecified site M19.90 [place] [address] [address] Jan, [facility] [id number] [place] [address] Jan, Osteoarthritis, unspecified osteoarthritis type, unspecified site M19.90 [facility] [address] [address] 08 Jan, 2018 Low back pain M54.5 and Other chronic pain G89.29 [facility] [id number] [address] Dec, Osteoarthritis, unspecified osteoarthritis type, unspecified site M19.90 [facility] [id number] [place] [address] Dec, [facility] [id number] [address] Nov, Osteoarthritis, unspecified osteoarthritis type, unspecified site M19.90 [facility] [address], [place] [address] Nov, Shortness of breath R06.02 [facility] [address] [address] Nov, [facility] [address], [place] [address] Nov, [facility] [address] [address] Oct, Osteoarthritis, unspecified osteoarthritis type, unspecified site M19.90 [facility] [address] [address] Sep, [facility] [address] [address] Sep, Osteoarthritis, unspecified osteoarthritis type, unspecified site M19.90 [facility] [id number] [address] August, Other chronic pain G89.29 and Other specified personal risk factors, not elsewhere classified Z91.89 [place] [id number] [place] [address] August, Osteoarthritis, unspecified osteoarthritis type, unspecified site M19.90 [place] [id number] [place] [address] Jul, Osteoarthritis, unspecified osteoarthritis type, unspecified site M19.90 [place] [id number] [place] [address] Jun, Osteoarthritis, unspecified osteoarthritis type, unspecified site M19.90 [place] [id number] [place] [address] Jun, [place] [id number] [place] [address] Jun, Osteoarthritis, unspecified osteoarthritis type, unspecified site M19.90 [place] [id number] [place] [address] May, [place] [id number] [place] [address] May, Benign prostatic hyperplasia, unspecified whether lower urinary tract symptoms present N40.0 [place] [id number] [place] [address] May, Osteoarthritis, unspecified osteoarthritis type, unspecified site M19.90 [place] [id number] [place] [address] May, [place] [id number] [place] [address] Apr, Other chronic pain G89.29 ; Family history of diabetes mellitus Z83.3 ; Forgetfulness R68.89 ; History of multiple concussions Z87.820 ; Gastroesophageal reflux disease without esophagitis K21.9 and Screening, lipid Z13.220 [place] [address] [address] Apr, Other chronic pain G89.29 ; Forgetfulness R68.89 ; History of multiple concussions Z87.820 ; Gastroesophageal reflux disease without esophagitis K21.9 ; Screening, lipid Z13.220 and Family history of diabetes mellitus Z83.3 [place] [address] [address] Apr, Osteoarthritis, unspecified osteoarthritis type, unspecified site M19.90 [place] [id number] [place] [address] Apr, Osteoarthritis, unspecified osteoarthritis type, unspecified site M19.90 [place] [id number] [place] [address] Apr, [place] [id number] [place] [address] Mar, Osteoarthritis, unspecified osteoarthritis type, unspecified site M19.90 [place] [id number] [place] [address] Feb, Osteoarthritis, unspecified osteoarthritis type, unspecified site M19.90 [place] [id number] [place] [address] Jan, Osteoarthritis, unspecified osteoarthritis type, unspecified site M19.90 [place] [address] [address] Dec, Osteoarthritis, unspecified osteoarthritis type, unspecified site M19.90 [place] [address], [place] [address] Dec, [place] [id number] [place] [address] Nov, Encounter for screening for lipid disorder Z13.220 [place] [address] [address] Nov, Osteoarthritis, unspecified osteoarthritis type, unspecified site M19.90 ; Encounter for screening for lipid disorder Z13.220 and Other chronic pain G89.29 [place] [id number] [place] [address] Nov, Osteoarthritis, unspecified osteoarthritis type, unspecified site M19.90 [facility] [id number] [place] [address] Nov, [place] [id number] [place] [address] Nov, [place] [id number] [place] [address] Oct, Osteoarthritis, unspecified osteoarthritis type, unspecified site M19.90 [place] [id number] [place] [address] Oct, Gastroesophageal reflux disease without esophagitis K21.9 [place] [id number] [place] [address] Sep, Osteoarthritis, unspecified osteoarthritis type, unspecified site M19.90 [place] [id number] [place] [address] August, Osteoarthritis, unspecified osteoarthritis type, unspecified site M19.90 [place] [id number] [place] [address] August, Osteoarthritis, unspecified osteoarthritis type, unspecified site M19.90 [facility] [id number] [place] [address] Jul, Osteoarthritis, unspecified osteoarthritis type, unspecified site M19.90 and Gastroesophageal reflux disease without esophagitis K21.9 [facility] [id number] [place] [address] Jul, Osteoarthritis, unspecified osteoarthritis type, unspecified site M19.90 [facility] [id number] [place] [address] Jun, Ventral hernia without obstruction or gangrene K43.9 [facility] [address], [place] [address] Jun, Osteoarthritis, unspecified osteoarthritis type, unspecified site M19.90 [facility] [address] [address] May, [facility] [id number] [place] [address] May, Osteoarthritis, unspecified osteoarthritis type, unspecified site M19.90 [facility] [id number] [place] [address] Apr, Osteoarthritis, unspecified osteoarthritis type, unspecified site M19.90 [facility] [id number] [place] [address] Mar, [facility] [id number] [place] [address] Mar, Osteoarthritis, unspecified osteoarthritis type, unspecified site M19.90 and Lumbago with sciatica, left side M54.42 [facility] [id number] [place] [address] Feb, [facility] [id number] [place] [address] Feb, [facility] [address], [place] [address] Feb, Osteoarthritis, unspecified osteoarthritis type, unspecified site M19.90 [facility] [address], [place] [address] Feb, [facility] [id number] [place] [address] Feb, Low back pain M54.5 and Other chronic pain G89.29 [facility] [id number] [place] [address] Feb, [facility] [id number] [place] [address] Jan, [facility] [id number] [place] [address] Jan, [facility] [id number] [place] [address] 24 Dec, 2015 Lumbago with sciatica, left side M54.42 [facility] [id number] [place] [address] 15 Dec, 2015 Irritable bowel syndrome with both constipation and diarrhea K58.0 ; Screening, lipid Z13.220 ; Nocturia R35.1 ; Family history of diabetes mellitus Z83.3 and Dysuria R30.0 [facility] [id number] [place] [address] 14 Dec, 2015 Irritable bowel syndrome with both constipation and diarrhea K58.0 ; Nocturia R35.1 ; Family history of diabetes mellitus Z83.3 ; Dysuria R30.0 and Screening, lipid Z13.220 [facility] [id number] [place] [address] 12 Dec, 2015 [facility] [id number] [place] [address] 07 Dec, 2015 [facility] [id number] [place] [address] 2015 Pain with swallowing R13.10 [facility] [id number] [place] [address] Nov, [facility] [id number] [place] [address] Nov, [facility] [id number] [place] [address] Oct, [facility] [id number] [place] [address] 15 Sep, 2015 [facility] [address] [place] [address] 07 Sep, 2015 Osteoarthritis, unspecified osteoarthritis type, unspecified site M19.90 [facility] [address] [address] 07 Sep, 2015 Back pain M54.9 [facility] [id number] [place] [address] Sep, Lumbago with sciatica, right side M54.41 and Bilateral impacted cerumen H61.23 [facility] [id number] [place] [address] Sep, [facility] [address] [address] August, Bronchitis J40 [facility] [address] [address] August, [facility] [address] [address] August, [facility] [id number] [place] [address] August, [facility] [id number] [place] [address] Jul, [facility] [id number] [place] [address] Jul, Back pain M54.9 [facility] [id number] [place] [address] Jun, Degenerative disc disease at L5-S1 level M51.36 and Bronchitis J40 [facility] [id number] [place] [address] Jun, [facility] [id number] [place] [address] May, [facility] [id number] [place] [address] Apr, [facility] [address] [address] Mar, [facility] [id number] [place] [address] Mar, [facility] [id number] [place] [address] Feb, [facility] [id number] [place] [address] Jan, [facility] [id number] [place] [address] Dec, [facility] [id number] [place] [address] Nov, [facility] [id number] [place] [address] Oct, [facility] [id number] [place] [address] Oct, Right shoulder pain 719.41 [facility] [id number] [place] [address] Sep, [facility] [id number] [place] [address] Sep, Vertigo 780.4 and Elbow fracture, right 812.40 [facility] [id number] [place] [address] Sep, [facility] [id number] [place] [address] August, [facility] [id number] [place] [address] 14 Jul, 2014 [facility] [address] [address] Jul, [facility] [id number] [place] [address] Jun, [facility] [place] [facility] [address] [id number] [place] [address] Jun, [facility] [place] [facility] [address] [id number] [place] [address] Jun, [facility] [place] [facility] [address] [id number] [place] [address] Jun, [facility] [place] [facility] [address] [id number] [place] [address] Jun, [facility] [place] [facility] [address] [id number] [place] [address] Jun, [facility] [place] [facility] [address] [id number] [place] [address] May, [facility] [place] [facility] [address] [id number] [place] [address] May, [facility] [place] [facility] [address] [id number] [place] [address] May, [facility] [place] [facility] [address] [id number] [place] [address] May, [facility] [place] [facility] [address] [id number] [place] [address] May, [facility] [place] [facility] [address] [id number] [place] [address] May, [facility] [place] [facility] [address] [id number] [place] [address] Apr, [facility] [place] [facility] [address] [id number] [place] [address] Apr, [facility] [place] [facility] [address] [id number] [place] [address] Apr, [facility] [place] [facility] [address] [id number] [place] [address] Apr, [facility] [place] [facility] [address] [id number] [place] [address] Apr, [facility] [address] [id number] [place] [address] Apr, [facility] [place] [facility] [address] [id number] [place] [address] Apr, [facility] [address] [id number] [place] [address] Mar, [facility] [place] [facility] [address] [id number] [place] [address] Mar, [facility] [place] [facility] [address] [id number] [place] [address] Mar, [facility] [place] [facility] [address] [id number] [place] [address] Mar, [facility] [place] [facility] [address] [id number] [place] [address] Mar, [facility] [place] [facility] [address] [id number] [place] [address] Mar, [facility] [place] [facility] [address] [id number] [place] [address] Mar, [facility] [place] [facility] [address] [id number] [place] [address] Mar, [facility] [place] [facility] [address] [id number] [place] [address] Mar, [facility] [place] [facility] [address] [id number] [place] [address] Mar, [facility] [place] [facility] [address] [id number] [place] [address] Mar, [facility] [place] [facility] [address] [id number] [place] [address] Mar, [facility] [place] [facility] [address] [id number] [place] [address] Mar, [facility] [place] [facility] [address] [id number] [place] [address] Mar, [facility] [place] [facility] [address] [id number] [place] [address] Mar, [facility] [place] [facility] [address] [id number] [place] [address] Feb, [facility] [place] [facility] [address] [id number] [place] [address] Feb, [facility] [place] [facility] [address] [id number] [place] [address] Feb, [facility] [place] [facility] [address] [id number] [place] [address] Feb, [facility] [place] [facility] [address] [id number] [place] [address] Feb, [facility] [place] [facility] [address] [id number] [place] [address] Feb, [facility] [place] [facility] [address] [id number] [place] [address] Jan, [facility] [place] [facility] [address] [id number] [place] [address] Jan, [facility] [place] [facility] [address] [id number] [place] [address] Jan, [facility] [place] [facility] [address] [id number] [address] Jan, [facility] [place] [facility] [address] [id number] [place] [address] Jan, [facility] [place] [facility] [address] [id number] [place] [address] Jan, [facility] [place] [facility] [address] [id number] [place] [address] Dec, [facility] [place] [facility] [address] [id number] [place] [address] 29 Dec, 2013 [facility] [place] [facility] [address] [id number] [place] [address] 26 Dec, 2013 [facility] [place] [facility] [address] [id number] [place] [address] 11 Dec, 2013 [facility] [place] [facility] [address] [id number] [place] [address] 11 Dec, 2013 [facility] [place] [facility] [address] [id number] [place] [address] 08 Dec, 2013 [facility] [place] [facility] [address] [id number] [place] [address] 08 Dec, 2013 [facility] [place] [facility] [address] [id number] [place] [address] 08 Dec, 2013 [facility] [place] [facility] [address] [id number] [place] [address] 08 Dec, 2013 [facility] [place] [facility] [address] [id number] [place] [address] Dec, 2013 [facility] [place] [facility] [address] [id number] [place] [address] Dec, 2013 [facility] [place] [facility] [address] [id number] [place] [address] Nov, [facility] [place] [facility] [address] [id number] [place] [address] Nov, 2013 [facility] [place] [facility] [address] [id number] [place] [address] Nov, [facility] [place] [facility] [address] [id number] [place] [address] Nov, [facility] [place] [facility] [address] [id number] [place] [address] Nov, [facility] [place] [facility] [address] [id number] [place] [address] Nov, [facility] [place] [facility] [address] [id number] [facility] [address] Nov, [facility] [place] [facility] [address] [id number] [facility] [address] Nov, [facility] [place] [facility] [address] [id number] [place] [address] Nov, [facility] [place] [facility] [address] [id number] [place] [address] Nov, [facility] [place] [facility] [address] [id number] [place] [address] Oct, [facility] [place] [facility] [address] [id number] [place] [address] Oct, [facility] [place] [facility] [address] [id number] [place] [address] Oct, [facility] [place] [facility] [address] [id number] [place] [address] Oct, [facility] [place] [facility] [address] [id number] [place] [address] Oct, [facility] [place] [facility] [address] [id number] [place] [address] Oct, [facility] [place] [facility] [address] [id number] [place] [address] Oct, [facility] [place] [facility] [address] [id number] [place] [address] Oct, [facility] [place] [facility] [address] [id number] [facility] [address] Oct, [facility] [place] [facility] [address] [id number] [place] [address] Oct, [facility] [place] [facility] [address] [id number] [place] [address] Oct, [facility] [place] [facility] [address] [id number] [place] [address] Oct, [facility] [place] [facility] [address] [id number] [place] [address] Oct, [facility] [place] [facility] [address] [id number] [place] [address] Sep, [facility] [place] [facility] [address] [id number] [place] [address] Sep, [facility] [place] [facility] [address] [id number] [place] [address] Sep, [facility] [place] [facility] [address] [id number] [place] [address] Sep, [facility] [place] [facility] [address] [id number] [place] [address] August, [facility] [place] [facility] [address] [id number] [place] [address] August, [facility] [place] [facility] [address] [id number] [place] [address] August, [facility] [place] [facility] [address] [id number] [place] [address] August, [facility] [place] [facility] [address] [id number] [place] [address] August, [facility] [place] [facility] [address] [id number] [place] [address] August, [facility] [place] [facility] [address] [id number] [place] [address] August, [facility] [place] [facility] [address] [id number] [place] [address] August, [facility] [place] [facility] [address] [id number] [place] [address] Jul, [facility] [place] [facility] [address] [id number] [place] [address] Jul, [facility] [place] [facility] [address] [id number] [place] [address] Jun, [facility] [place] [facility] [address] [id number] [place] [address] Jun, [facility] [place] [facility] [address] [id number] [place] [address] Jun, [facility] [place] [facility] [address] [id number] [place] [address] Jun, [facility] [place] [facility] [address] [id number] [place] [address] Jun, [facility] [place] [facility] [address] [id number] [place] [address] Jun, [facility] [place] [facility] [address] [id number] [place] [address] May, [facility] [place] [facility] [address] [id number] [place] [address] May, [facility] [place] [facility] [address] [id number] [place] [address] May, [facility] [place] [facility] [address] [facility] [address] [facility] [id number] [place] [address] May, [facility] [place] [facility] [address] [facility] [id number] [place] [address] May, [facility] [place] [facility] [address] [facility] [id number] [place] [address] May, [facility] [place] [facility] [address] [id number] [place] [address] Apr, [facility] [place] [facility] [address] [id number] [place] [address] Apr, [facility] [place] [facility] [address] [facility] [id number] [place] [address] 15 Feb, 2013 [facility] [place] [facility] [address] [id number] [place] [address] 15 Feb, 2013 [facility] [place] [facility] [address] [id number] [place] [address] 15 Feb, 2013 [facility] [place] [facility] [address] [id number] [place] [address] 15 Feb, 2013 [facility] [place] [facility] [address] [id number] [place] [address] Feb, [facility] [place] [facility] [address] [id number] [place] [address] Feb, [facility] [place] [facility] [address] [id number] [place] [address] Feb, [facility] [place] [facility] [address] [id number] [place] [address] Feb, [facility] [place] [facility] [address] [id number] [place] [address] Feb, [facility] [place] [facility] [address] [id number], [place] [address] Jan, [facility] [place] [facility] [address] [id number], [place] [address] Jan, [facility] [place] [facility] [address] [id number], [place] [address] Jan, [facility] [place] [facility] [address] [id number], [place] [address] 06 Jan, 2013 [facility] [place] [facility] [address] [id number], [place] [address] 04 Jan, 2013 [facility] [place] [facility] [address] [id number], [place] [address] 02 Jan, 2013 [facility] [place] [facility] [address] [id number], [place] [address] 17 Dec, 2012 [facility] [place] [facility] [address] [id number], [place] [address] 12 Dec, 2012 [facility] [place] [facility] [address] [id number] [place] [address] 05 Dec, 2012 [facility] [address] [id number] [place] [address] 05 Dec, 2012 [facility] [address] [id number] [place] [address] Oct, [facility] [address] [id number] [place] [address] Oct, [facility] [address] [id number] [place] [address] Oct, [facility] [address] [id number] [place] [address] Oct, [facility] [address] [id number] [place] [address] Oct, [facility] [address] [id number] [place] [address] Sep, [facility] [address] [id number] [place] [address] August, [facility] [address] [id number] [place] [address] August, [facility] [address] [id number] [place] [address] August, [facility] [address] [id number] [place] [address] August, [facility] [address] [id number] [place] [address] August, [facility] [place] [facility] [address] [id number] [place] [address] August, [facility] [address] [id number] [place] [address] August, [facility] [address] [id number] [place] [address] August, [facility] [place] [facility] [address] [id number] [place] [address] August, [facility] [address] [id number] [place] [address] August, [facility] [address] [id number] [place] [address] August, [facility] [address] [id number] [place] [address] August, [facility] [address] [id number] [place] [address] Jun, [facility] [address] [id number] [place] [address] Jun, [facility] [address] [id number] [place] [address] Jun, [facility] [address] [id number] [place] [address] May, [facility] [address] [id number] [place] [address] May, [facility] [address] [id number] [place] [address] Mar, [facility] [address] [id number] [place] [address] Mar, [facility] [address] [id number] [place] [address] Feb, [facility] [place] [facility] [address] [id number] [place] [address] Feb, [facility] [place] [facility] [address] [id number] [place] [address] Feb, [facility] [place] [facility] [address] [id number] [place] [address] Feb, [facility] [address] [id number], [place] [address] Dec, [facility] [address] [id number] [place] [address] August, [facility] [address] [id number] [place] [address] Jul, [facility] [address] [address] [facility] [id number] [place] [address] Jul, [facility] [address] [id number] [place] [address] Jun, [facility] [address] [id number] [place] [address] Jun, [facility] [address] [facility] [id number] [place] [address] Jun, [facility] [address] [id number] [address] Jun, [facility] [place] [facility] [address] [facility] [id number] [place] [address] Jun, [facility] [address] [facility] [id number] [place] [address] May, [facility] [place] [facility] [address] [facility] [id number] [place] [address] May, [facility] [address] [facility] [id number] [place] [address] May, [facility] [place] [facility] [address] [facility] [id number], [place] [address] May, [facility] [place] [facility] [address] [id number], [place] [address] Apr, [facility] [place] [facility] [address] [id number], [place] [address] Apr, [facility] [place] [facility] [address] [facility] [id number], [place] [address] Apr, [facility] [place] [facility] [address] [id number], [place] [address] Mar, [facility] [id number], [place] [address] Mar, [facility] [id number], [place] [address] Mar, [facility] [id number], [place] [address] Mar, [facility] [id number], [place] [address] May, [facility] [id number] [place] [address] Feb, [facility] [id number], [place] [address] Feb, [facility] [id number], [place] [address] Jan, [facility] [address] [id number], [place] [address] Jan, IMMUNIZATIONS No Known Immunizations SOCIAL HISTORY Never Assessed REASON FOR VISIT [facility] PLAN OF CARE VITAL SIGNS MEDICATIONS Unknown [...]
--- OUTSIDE RECORDS SUMMARY | 2018-09-19 01:17 | XMS REPORT ---
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 Name Role Phone Migration, Doctor Unavailable Unavailable PROBLEMS Type Condition ICD9-CM Code QDC88-HT Code Onset Dates Condition Status SNOMED Code Problem Other fpc (current) drug therapy Z79.899 Active 635027645 Problem Encounter for therapeutic drug level monitoring Z51.81 Active 177844681 Problem 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 Active 957014123 Problem Benign prostatic hyperplasia, unspecified whether lower urinary tract symptoms present N40.0 Active 363296697 Problem Screening, lipid Z13.220 Active 947115302 Problem Shortness of breath R06.02 Active 258621562 Problem 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 Active 665872631 Problem Osteoarthritis, unspecified osteoarthritis type, unspecified site M19.90 Active 067868416 Problem Other chronic pain G89.29 Active 88997089 Problem Gastroesophageal reflux disease without esophagitis K21.9 Active 900175455 ALLERGIES No Information ENCOUNTERS Encounter Location Date Diagnosis [place] [id number] [place] [address] Jun, Osteoarthritis, unspecified osteoarthritis type, unspecified site M19.90 [place] [id number] [place] [address] Jun, [facility] [id number] [place] [address] May, Osteoarthritis, unspecified osteoarthritis type, unspecified site M19.90 [facility] [id number] [place] [address] May, [facility] [id number] [place] [address] May, [facility] [id number] [place] [address] May, Osteopenia determined by x-ray M85.80 ; Shortness of breath R06.02 and Screening, lipid Z13.220 [place] [address] [address] May, [place] [address] [address] [id number] [place] [address] Apr, Osteoarthritis, unspecified osteoarthritis type, unspecified site M19.90 [place] [id number] [address] Apr, Other roasterman (current) drug therapy Z79.899 [place] [address] [address] [id number] [place] [address] Apr, [place] [address] [id number] [place] [address] Apr, Osteoarthritis, unspecified osteoarthritis type, unspecified site M19.90 [place] [address] [address] Mar, [place] [address] [address] [id number] [place] [address] Mar, Encounter for Medicare annual wellness exam Z00.00 ; Osteoarthritis, unspecified osteoarthritis type, unspecified site M19.90 ; Benign prostatic hyperplasia, unspecified whether lower urinary tract symptoms present N40.0 ; 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 and At high risk for osteoporosis Z91.89 [place] [address] [address] Mar, Osteoarthritis, unspecified osteoarthritis type, unspecified site M19.90 [place] [address] [address] Feb, [place] [address] [address] Feb, Osteoarthritis, unspecified osteoarthritis type, unspecified site M19.90 [place] [address] [address] Jan, [facility] [id number] [place] [address] Jan, Osteoarthritis, unspecified osteoarthritis type, unspecified site M19.90 [facility] [address] [address] 08 Jan, 2018 Low back pain M54.5 and Other chronic pain G89.29 [facility] [id number] [address] Dec, Osteoarthritis, unspecified osteoarthritis type, unspecified site M19.90 [facility] [id number] [place] [address] Dec, [facility] [id number] [address] Nov, Osteoarthritis, unspecified osteoarthritis type, unspecified site M19.90 [facility] [address] [address] Nov, Shortness of breath R06.02 [facility] [address] [address] Nov, [facility] [address] [address] Nov, [facility] [address] [address] Oct, Osteoarthritis, unspecified osteoarthritis type, unspecified site M19.90 [facility] [address] [address] Sep, [facility] [address] [address] Sep, Osteoarthritis, unspecified osteoarthritis type, unspecified site M19.90 [facility] [id number] [address] August, Other chronic pain G89.29 and Other specified personal risk factors, not elsewhere classified Z91.89 [place] [address] [id number] [place] [address] August, Osteoarthritis, unspecified osteoarthritis type, unspecified site M19.90 [place] [address] [address] [id number] [place] [address] Jul, Osteoarthritis, unspecified osteoarthritis type, unspecified site M19.90 [place] [address] [address] [id number] [place] [address] Jun, Osteoarthritis, unspecified osteoarthritis type, unspecified site M19.90 [place] [address] [id number] [place] [address] Jun, [place] [address] [address] [id number] [place] [address] Jun, Osteoarthritis, unspecified osteoarthritis type, unspecified site M19.90 [place] [address] [id number] [place] [address] May, [place] [address] [address] [id number] [place] [address] May, Benign prostatic hyperplasia, unspecified whether lower urinary tract symptoms present N40.0 [place] [address] [address] [id number] [place] [address] May, Osteoarthritis, unspecified osteoarthritis type, unspecified site M19.90 [place] [address] [id number] [place] [address] May, [place] [address] [place] [address] [id number] [place] [address] Apr, Other chronic pain G89.29 ; Family history of diabetes mellitus Z83.3 ; Forgetfulness R68.89 ; History of multiple concussions Z87.820 ; Gastroesophageal reflux disease without esophagitis K21.9 and Screening, lipid Z13.220 [place] [address] [place] [id number] [address] Apr, Other chronic pain G89.29 ; Forgetfulness R68.89 ; History of multiple concussions Z87.820 ; Gastroesophageal reflux disease without esophagitis K21.9 ; Screening, lipid Z13.220 and Family history of diabetes mellitus Z83.3 [place] [address] [id number] [address] Apr, Osteoarthritis, unspecified osteoarthritis type, unspecified site M19.90 [place] [address] [address] [id number] [place] [address] Apr, Osteoarthritis, unspecified osteoarthritis type, unspecified site M19.90 [place] [address] [id number] [place] [address] Apr, [place] [address] [id number] [place] [address] Mar, Osteoarthritis, unspecified osteoarthritis type, unspecified site M19.90 [place] [address] [id number] [place] [address] Feb, Osteoarthritis, unspecified osteoarthritis type, unspecified site M19.90 [place] [address] [id number] [place] [address] Jan, Osteoarthritis, unspecified osteoarthritis type, unspecified site M19.90 [place] [id number] [address] Dec, Osteoarthritis, unspecified osteoarthritis type, unspecified site M19.90 [place] [address] [address] Dec, [place] [address] [place] [id number] [place] [address] Nov, Encounter for screening for lipid disorder Z13.220 [place] [address] [address] Nov, Osteoarthritis, unspecified osteoarthritis type, unspecified site M19.90 ; Encounter for screening for lipid disorder Z13.220 and Other chronic pain G89.29 [place] [address] [place] [id number] [place] [address] Nov, Osteoarthritis, unspecified osteoarthritis type, unspecified site M19.90 [facility] [id number] [place] [address] Nov, [place] [address] [place] [id number] [place] [address] Nov, [place] [address] [place] [id number] [place] [address] Oct, Osteoarthritis, unspecified osteoarthritis type, unspecified site M19.90 [place] [address] [place] [id number] [place] [address] Oct, Gastroesophageal reflux disease without esophagitis K21.9 [place] [address] [place] [id number] [place] [address] Sep, Osteoarthritis, unspecified osteoarthritis type, unspecified site M19.90 [place] [address] [place] [id number] [place] [address] August, Osteoarthritis, unspecified osteoarthritis type, unspecified site M19.90 [place] [address] [place] [id number] [place] [address] August, Osteoarthritis, unspecified osteoarthritis type, unspecified site M19.90 [facility] [id number] [place] [address] Jul, Osteoarthritis, unspecified osteoarthritis type, unspecified site M19.90 and Gastroesophageal reflux disease without esophagitis K21.9 [facility] [address] [id number] [place] [address] Jul, Osteoarthritis, unspecified osteoarthritis type, unspecified site M19.90 [facility] [id number] [place] [address] Jun, Ventral hernia without obstruction or gangrene K43.9 [facility] [address] [address] Jun, Osteoarthritis, unspecified osteoarthritis type, unspecified site M19.90 [facility] [id number] [address] May, [facility] [id number] [place] [address] May, Osteoarthritis, unspecified osteoarthritis type, unspecified site M19.90 [facility] [id number] [place] [address] Apr, Osteoarthritis, unspecified osteoarthritis type, unspecified site M19.90 [facility] [id number] [place] [address] Mar, [facility] [address] [id number] [place] [address] Mar, Osteoarthritis, unspecified osteoarthritis type, unspecified site M19.90 and Lumbago with sciatica, left side M54.42 [facility] [id number] [place] [address] Feb, [facility] [id number] [place] [address] Feb, [facility] [address] [address] Feb, Osteoarthritis, unspecified osteoarthritis type, unspecified site M19.90 [facility] [address] [address] Feb, [facility] [id number] [place] [address] Feb, Low back pain M54.5 and Other chronic pain G89.29 [facility] [id number] [place] [address] Feb, [facility] [id number] [place] [address] Jan, [facility] [id number] [place] [address] Jan, [facility] [id number] [place] [address] 24 Dec, 2015 Lumbago with sciatica, left side M54.42 [facility] [id number] [place] [address] 15 Dec, 2015 Irritable bowel syndrome with both constipation and diarrhea K58.0 ; Screening, lipid Z13.220 ; Nocturia R35.1 ; Family history of diabetes mellitus Z83.3 and Dysuria R30.0 [facility] [id number] [place] [address] 14 Dec, 2015 Irritable bowel syndrome with both constipation and diarrhea K58.0 ; Nocturia R35.1 ; Family history of diabetes mellitus Z83.3 ; Dysuria R30.0 and Screening, lipid Z13.220 [facility] [id number] [place] [address] 12 Dec, 2015 [facility] [id number] [place] [address] 07 Dec, 2015 [facility] [id number] [place] [address] 2015 Pain with swallowing R13.10 [facility] [id number] [place] [address] Nov, [facility] [id number] [place] [address] Nov, [facility] [id number] [place] [address] Oct, [facility] [id number] [place] [address] 15 Sep, 2015 [facility] [address] [place] [address] 07 Sep, 2015 Osteoarthritis, unspecified osteoarthritis type, unspecified site M19.90 [facility] [address] [address] 07 Sep, 2015 Back pain M54.9 [facility] [id number] [place] [address] Sep, Lumbago with sciatica, right side M54.41 and Bilateral impacted cerumen H61.23 [facility] [id number] [place] [address] Sep, [facility] [address] [address] August, Bronchitis J40 [facility] [address] [address] August, [facility] [address] [address] August, [facility] [id number] [place] [address] August, [facility] [id number] [place] [address] Jul, [facility] [id number] [place] [address] Jul, Back pain M54.9 [facility] [id number] [place] [address] Jun, Degenerative disc disease at L5-S1 level M51.36 and Bronchitis J40 [facility] [id number] [place] [address] Jun, [facility] [id number] [place] [address] May, [facility] [id number] [place] [address] Apr, [facility] [address] [address] Mar, [facility] [id number] [place] [address] Mar, [facility] [id number] [place] [address] Feb, [facility] [id number] [place] [address] Jan, [facility] [id number] [place] [address] Dec, [facility] [id number] [place] [address] Nov, [facility] [id number] [place] [address] Oct, [facility] [id number] [place] [address] Oct, Right shoulder pain 719.41 [facility] [id number] [place] [address] Sep, [facility] [id number] [place] [address] Sep, Vertigo 780.4 and Elbow fracture, right 812.40 [facility] [id number] [place] [address] Sep, [facility] [id number] [place] [address] August, [facility] [id number] [place] [address] 14 Jul, 2014 [facility] [address] [address] Jul, [facility] [id number] [place] [address] Jun, [facility] [place] [facility] [address] [id number] [place] [address] Jun, [facility] [place] [facility] [address] [id number] [place] [address] Jun, [facility] [place] [facility] [address] [id number] [place] [address] Jun, [facility] [place] [facility] [address] [id number] [place] [address] Jun, [facility] [place] [facility] [address] [id number] [place] [address] Jun, [facility] [place] [facility] [address] [id number] [place] [address] May, [facility] [place] [facility] [address] [id number] [place] [address] May, [facility] [place] [facility] [address] [id number] [place] [address] May, [facility] [place] [facility] [address] [id number] [place] [address] May, [facility] [place] [facility] [address] [id number] [place] [address] May, [facility] [place] [facility] [address] [id number] [place] [address] May, [facility] [place] [facility] [address] [id number] [place] [address] Apr, [facility] [place] [facility] [address] [id number] [place] [address] Apr, [facility] [place] [facility] [address] [id number] [place] [address] Apr, [facility] [place] [facility] [address] [id number] [place] [address] Apr, [facility] [place] [facility] [address] [id number] [place] [address] Apr, [facility] [place] [address] [id number] [place] [address] Apr, [facility] [place] [facility] [address] [id number] [place] [address] Apr, [facility] [address] [id number] [place] [address] Mar, [facility] [place] [facility] [address] [id number] [place] [address] Mar, [facility] [place] [facility] [address] [id number] [place] [address] Mar, [facility] [place] [facility] [address] [id number] [place] [address] Mar, [facility] [place] [facility] [address] [id number] [place] [address] Mar, [facility] [place] [facility] [address] [id number] [place] [address] Mar, [facility] [place] [facility] [address] [id number] [place] [address] Mar, [facility] [place] [facility] [address] [id number] [place] [address] Mar, [facility] [place] [facility] [address] [id number] [place] [address] Mar, [facility] [place] [facility] [address] [id number] [place] [address] Mar, [facility] [place] [facility] [address] [id number] [place] [address] Mar, [facility] [place] [facility] [address] [id number] [place] [address] Mar, [facility] [place] [facility] [address] [id number] [place] [address] Mar, [facility] [place] [facility] [address] [id number] [place] [address] Mar, [facility] [place] [facility] [address] [id number] [place] [address] Mar, [facility] [place] [facility] [address] [id number] [place] [address] Feb, [facility] [place] [facility] [address] [id number] [place] [address] Feb, [facility] [place] [facility] [address] [id number] [place] [address] Feb, [facility] [place] [facility] [address] [id number] [place] [address] Feb, [facility] [place] [facility] [address] [id number] [place] [address] Feb, [facility] [place] [facility] [address] [id number] [place] [address] Feb, [facility] [place] [facility] [address] [id number] [place] [address] Jan, [facility] [place] [facility] [address] [id number] [place] [address] Jan, [facility] [place] [facility] [address] [id number] [place] [address] Jan, [facility] [place] [facility] [address] [id number] [address] Jan, [facility] [place] [facility] [address] [id number] [place] [address] Jan, [facility] [place] [facility] [address] [id number] [place] [address] Jan, [facility] [place] [facility] [address] [id number] [place] [address] Dec, [facility] [place] [facility] [address] [id number] [place] [address] 29 Dec, 2013 [facility] [place] [facility] [address] [id number] [place] [address] 26 Dec, 2013 [facility] [place] [facility] [address] [id number] [place] [address] 11 Dec, 2013 [facility] [place] [facility] [address] [id number] [place] [address] 11 Dec, 2013 [facility] [place] [facility] [address] [id number] [place] [address] 08 Dec, 2013 [facility] [place] [facility] [address] [id number] [place] [address] 08 Dec, 2013 [facility] [place] [facility] [address] [id number] [place] [address] 08 Dec, 2013 [facility] [place] [facility] [address] [id number] [place] [address] 08 Dec, 2013 [facility] [place] [facility] [address] [id number] [place] [address] Dec, 2013 [facility] [place] [facility] [address] [id number] [place] [address] Dec, 2013 [facility] [place] [facility] [address] [id number] [place] [address] Nov, [facility] [place] [facility] [address] [id number] [place] [address] Nov, 2013 [facility] [place] [facility] [address] [id number] [place] [address] Nov, [facility] [place] [facility] [address] [id number] [place] [address] Nov, [facility] [place] [facility] [address] [id number] [place] [address] Nov, [facility] [place] [facility] [address] [id number] [place] [address] Nov, [facility] [place] [facility] [address] [id number] [place] [address] Nov, [facility] [place] [facility] [address] [id number] [place] [address] Nov, [facility] [place] [facility] [address] [id number] [place] [address] Nov, [facility] [place] [facility] [address] [id number] [place] [address] Nov, [facility] [place] [facility] [address] [id number] [place] [address] Oct, [facility] [place] [facility] [address] [id number] [place] [address] Oct, [facility] [place] [facility] [address] [id number] [place] [address] Oct, [facility] [place] [facility] [address] [id number] [place] [address] Oct, [facility] [place] [facility] [address] [id number] [place] [address] Oct, [facility] [place] [facility] [address] [id number] [place] [address] Oct, [facility] [place] [facility] [address] [id number] [place] [address] Oct, [facility] [place] [facility] [address] [id number] [place] [address] Oct, [facility] [place] [facility] [address] [id number] [place] [address] Oct, [facility] [place] [facility] [address] [id number] [place] [address] Oct, [facility] [place] [facility] [address] [id number] [place] [address] Oct, [facility] [place] [facility] [address] [id number] [place] [address] Oct, [facility] [place] [facility] [address] [id number] [place] [address] Oct, [facility] [place] [facility] [address] [id number] [place] [address] Sep, [facility] [place] [facility] [address] [id number] [place] [address] Sep, [facility] [place] [facility] [address] [id number] [place] [address] Sep, [facility] [place] [facility] [address] [id number] [place] [address] Sep, [facility] [place] [facility] [address] [id number] [place] [address] August, [facility] [place] [facility] [address] [id number] [place] [address] August, [facility] [place] [facility] [address] [id number] [place] [address] August, [facility] [place] [facility] [address] [id number] [place] [address] August, [facility] [place] [facility] [address] [id number] [place] [address] August, [facility] [place] [facility] [address] [id number] [place] [address] August, [facility] [place] [facility] [address] [id number] [place] [address] August, [facility] [place] [facility] [address] [id number] [place] [address] August, [facility] [place] [facility] [address] [id number] [place] [address] Jul, [facility] [place] [facility] [address] [id number] [place] [address] Jul, [facility] [place] [facility] [address] [id number] [place] [address] Jun, [facility] [place] [facility] [address] [id number] [place] [address] Jun, [facility] [place] [facility] [address] [id number] [place] [address] Jun, [facility] [place] [facility] [address] [id number] [place] [address] Jun, [facility] [place] [facility] [address] [id number] [place] [address] Jun, [facility] [place] [facility] [address] [id number] [place] [address] Jun, [facility] [place] [facility] [address] [id number] [place] [address] May, [facility] [place] [facility] [address] [id number] [place] [address] May, [facility] [place] [facility] [address] [id number] [place] [address] May, [facility] [place] [facility] [address] [facility] [id number] [place] [address] May, [facility] [place] [facility] [address] [facility] [id number] [place] [address] May, [facility] [place] [facility] [address] [facility] [id number] [place] [address] May, [facility] [place] [facility] [address] [id number] [place] [address] Apr, [facility] [place] [facility] [address] [id number] [place] [address] Apr, [facility] [place] [facility] [address] [facility] [id number] [place] [address] 15 Feb, 2013 [facility] [place] [facility] [address] [id number] [place] [address] 15 Feb, 2013 [facility] [place] [facility] [address] [id number] [place] [address] 15 Feb, 2013 [facility] [place] [facility] [address] [id number] [place] [address] 15 Feb, 2013 [facility] [place] [facility] [address] [id number] [place] [address] Feb, [facility] [place] [facility] [address] [id number] [place] [address] Feb, [facility] [place] [facility] [address] [id number] [place] [address] Feb, [facility] [place] [facility] [address] [id number] [place] [address] Feb, [facility] [place] [facility] [address] [id number] [place] [address] Feb, [facility] [place] [facility] [address] [id number], [place] [address] Jan, [facility] [place] [facility] [address] [id number][place] [address] Jan, [facility] [place] [facility] [address] [id number][place] [address] Jan, [facility] [place] [facility] [address] [id number][place] [address] 06 Jan, 2013 [facility] [place] [facility] [address] [id number][place] [address] 04 Jan, 2013 [facility] [place] [facility] [address] [id number][place] [address] 02 Jan, 2013 [facility] [place] [facility] [address] [id number][place] [address] 17 Dec, 2012 [facility] [place] [facility] [address] [id number][place] [address] 12 Dec, 2012 [facility] [place] [facility] [address] [id number] [place] [address] 05 Dec, 2012 [facility] [address] [id number] [place] [address] 05 Dec, 2012 [facility] [address] [id number] [place] [address] Oct, [facility] [address] [id number] [place] [address] Oct, [facility] [address] [id number] [place] [address] Oct, [facility] [address] [id number] [place] [address] Oct, [facility] [address] [id number] [place] [address] Oct, [facility] [address] [id number] [place] [address] Sep, [facility] [address] [id number] [place] [address] August, [facility] [address] [id number] [place] [address] August, [facility] [address] [id number] [place] [address] August, [facility] [address] [id number] [place] [address] August, [facility] [address] [id number] [place] [address] August, [facility] [place] [facility] [address] [id number] [place] [address] August, [facility] [address] [id number] [place] [address] August, [facility] [address] [id number] [place] [address] August, [facility] [address] [id number] [place] [address] August, [facility] [address] [id number] [place] [address] August, [facility] [address] [id number] [place] [address] August, [facility] [address] [id number] [place] [address] August, [facility] [address] [id number] [place] [address] Jun, [facility] [address] [id number] [place] [address] Jun, [facility] [address] [id number] [place] [address] Jun, [facility] [address] [id number] [place] [address] May, [facility] [address] [id number] [place] [address] May, [facility] [address] [id number] [place] [address] Mar, [facility] [address] [id number] [place] [address] Mar, [facility] [address] [id number] [place] [address] Feb, [facility] [place] [facility] [address] [id number] [place] [address] Feb, [facility] [place] [facility] [address] [id number] [place] [address] Feb, [facility] [place] [facility] [address] [id number] [place] [address] Feb, [facility] [address] [id number][place] [address] Dec, [facility] [address] [id number] [place] [address] August, [facility] [address] [id number] [place] [address] Jul, [facility] [address] [facility] [id number] [place] [address] Jul, [facility] [address] [id number] [place] [address] Jun, [facility] [address] [id number] [place] [address] Jun, [facility] [address] [facility] [id number] [place] [address] Jun, [facility] [address] [id number] [place] [address] Jun, [facility] [place] [facility] [address] [facility] [id number] [place] [address] Jun, [facility] [address] [facility] [id number] [place] [address] May, [facility] [place] [facility] [address] [facility] [id number] [place] [address] May, [facility] [address] [facility] [id number] [place] [address] May, [facility] [place] [facility] [address] [facility] [id number][place] [address] May, [facility] [place] [facility] [address] [id number], [place] [address] Apr, [facility] [place] [facility] [address] [id number][place] [address] Apr, [facility] [place] [facility] [address] [facility] [id number][place] [address] Apr, [facility] [place] [facility] [address] [id number] [address] Mar, [facility] [id number], [place] [address] Mar, [facility] [id number], [place] [address] Mar, [facility] [id number], [place] [address] Mar, [facility] [id number], [place] [address] May, [facility] [id number] [place] [address] Feb, [facility] [id number] [address] Feb, [facility] [id number], [place] [address] Jan, [facility] [address] [id number] [address] Jan, IMMUNIZATIONS No Known Immunizations SOCIAL HISTORY Never Assessed REASON FOR VISIT [facility] PLAN OF CARE VITAL SIGNS MEDICATIONS [...]
--- OUTSIDE RECORDS SUMMARY | 2018-09-19 01:18 | XMS REPORT ---
Author Author Migration, Doctor Organization [facility] Address Unknown Phone Unavailable Care Team Providers Care Program Consultant Name Role Phone Migration, Doctor Unavailable Unavailable PROBLEMS Type Condition ICD9-CM Code RAB77-KU Code Onset Dates Condition Status SNOMED Code Problem Other fci (current) drug therapy Z79.899 Active 086941301 Problem Encounter for therapeutic drug level monitoring Z51.81 Active 815503078 Problem 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 Active 610814931 Problem Benign prostatic hyperplasia, unspecified whether lower urinary tract symptoms present N40.0 Active 760029100 Problem Screening, lipid Z13.220 Active 026972292 Problem Shortness of breath R06.02 Active 542850281 Problem 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 Active 690008253 Problem Osteoarthritis, unspecified osteoarthritis type, unspecified site M19.90 Active 449167780 Problem Other chronic pain G89.29 Active 09076009 Problem Gastroesophageal reflux disease without esophagitis K21.9 Active 985119523 ALLERGIES No Information ENCOUNTERS Encounter Location Date Diagnosis [place] [address] [address] Jun, [place] [address] [place] [id number] [place] [address] May, Osteoarthritis, unspecified osteoarthritis type, unspecified site M19.90 [place] [address] [address] May, [place] [id number] [place] [address] May, [place] [id number] [place] [address] May, Osteopenia determined by x-ray M85.80 ; Shortness of breath R06.02 and Screening, lipid Z13.220 [place] [address] [address] May, [facility] [address] [address] Apr, Osteoarthritis, unspecified osteoarthritis type, unspecified site M19.90 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 [id number] [address] Apr, [place] [id number] [place] [address] Apr, Osteoarthritis, unspecified osteoarthritis type, unspecified site M19.90 [place] [address] [address] Mar, [place] [id number] [address] Mar, Encounter for Medicare annual wellness exam Z00.00 ; Osteoarthritis, unspecified osteoarthritis type, unspecified site M19.90 ; Benign prostatic hyperplasia, unspecified whether lower urinary tract symptoms present N40.0 ; 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 and At high risk for osteoporosis Z91.89 [facility] [address] [address] Mar, Osteoarthritis, unspecified osteoarthritis type, unspecified site M19.90 [facility] [address] [address] Feb, [facility] [address] [address] Feb, Osteoarthritis, unspecified osteoarthritis type, unspecified site M19.90 [facility] [id number] [address] Jan, [facility] [id number] [address] Jan, Osteoarthritis, unspecified osteoarthritis type, unspecified site M19.90 [facility] [address] [place] [address] 08 Jan, 2018 Low back pain M54.5 and Other chronic pain G89.29 [facility] [id number] [place] [address] 18 Dec, 2017 Osteoarthritis, unspecified osteoarthritis type, unspecified site M19.90 [facility] [id number] [place] [address] Dec, [place] [id number] [place] [address] Nov, Osteoarthritis, unspecified osteoarthritis type, unspecified site M19.90 [place] [id number] [address] Nov, Shortness of breath R06.02 [facility] [id number] [address] Nov, [place] [id number] [place] [address] Nov, [facility] [id number] [place] [address] Oct, Osteoarthritis, unspecified osteoarthritis type, unspecified site M19.90 [facility] [address] [address] Sep, [facility] [id number] [place] [address] Sep, Osteoarthritis, unspecified osteoarthritis type, unspecified site M19.90 [facility] [address] [place] [address] August, Other chronic pain G89.29 and Other specified personal risk factors, not elsewhere classified Z91.89 [facility] [address] [place] [address] August, Osteoarthritis, unspecified osteoarthritis type, unspecified site M19.90 [place] [id number] [place] [address] Jul, Osteoarthritis, unspecified osteoarthritis type, unspecified site M19.90 [place] [id number] [place] [address] Jun, Osteoarthritis, unspecified osteoarthritis type, unspecified site M19.90 [place] [id number] [place] [address] Jun, [place] [address] [address] Jun, Osteoarthritis, unspecified osteoarthritis type, unspecified site M19.90 [place] [id number] [place] [address] May, [place] [address] [id number] [place] [address] May, Benign prostatic hyperplasia, unspecified whether lower urinary tract symptoms present N40.0 [place] [id number] [place] [address] May, Osteoarthritis, unspecified osteoarthritis type, unspecified site M19.90 [place] [address] [id number] [place] [address] May, [place] [id number] [place] [address] Apr, Other chronic pain G89.29 ; Family history of diabetes mellitus Z83.3 ; Forgetfulness R68.89 ; History of multiple concussions Z87.820 ; Gastroesophageal reflux disease without esophagitis K21.9 and Screening, lipid Z13.220 [place] [address] [place] [address] Apr, Other chronic pain G89.29 ; Forgetfulness R68.89 ; History of multiple concussions Z87.820 ; Gastroesophageal reflux disease without esophagitis K21.9 ; Screening, lipid Z13.220 and Family history of diabetes mellitus Z83.3 [place] [address] [id number] [place] [address] Apr, Osteoarthritis, unspecified osteoarthritis type, unspecified site M19.90 [place] [address] [place] [address] [id number] [place] [address] Apr, Osteoarthritis, unspecified osteoarthritis type, unspecified site M19.90 [place] [address] [address] [id number] [place] [address] Apr, [place] [address] [address] [id number] [place] [address] Mar, Osteoarthritis, unspecified osteoarthritis type, unspecified site M19.90 [place] [address] [id number] [place] [address] Feb, Osteoarthritis, unspecified osteoarthritis type, unspecified site M19.90 [place] [id number] [place] [address] Jan, Osteoarthritis, unspecified osteoarthritis type, unspecified site M19.90 [place] [address] [id number] [place] [address] Dec, Osteoarthritis, unspecified osteoarthritis type, unspecified site M19.90 [place] [address] [id number] [place] [address] Dec, [place] [address] [place] [address] [id number] [place] [address] Nov, Encounter for screening for lipid disorder Z13.220 [place] [address] [place] [address] [id number] [place] [address] Nov, Osteoarthritis, unspecified osteoarthritis type, unspecified site M19.90 ; Encounter for screening for lipid disorder Z13.220 and Other chronic pain G89.29 [place] [address] [place] [address] [id number] [place] [address] Nov, Osteoarthritis, unspecified osteoarthritis type, unspecified site M19.90 [facility] [address] [place] [address] Nov, [facility] [id number] [place] [address] Nov, [facility] [address] [id number] [place] [address] Oct, Osteoarthritis, unspecified osteoarthritis type, unspecified site M19.90 [facility] [address] [place] [id number] [place] [address] Oct, Gastroesophageal reflux disease without esophagitis K21.9 [place] [address] [address] [id number] [place] [address] Sep, Osteoarthritis, unspecified osteoarthritis type, unspecified site M19.90 [place] [address] [place] [address] [id number] [place] [address] August, Osteoarthritis, unspecified osteoarthritis type, unspecified site M19.90 [place] [address] [place] [address] [id number] [place] [address] August, Osteoarthritis, unspecified osteoarthritis type, unspecified site M19.90 [place] [address] [place] [id number] [place] [address] Jul, Osteoarthritis, unspecified osteoarthritis type, unspecified site M19.90 and Gastroesophageal reflux disease without esophagitis K21.9 [facility] [address] [place] [address] Jul, Osteoarthritis, unspecified osteoarthritis type, unspecified site M19.90 [facility] [address] [id number] [place] [address] Jun, Ventral hernia without obstruction or gangrene K43.9 [facility] [id number] [place] [address] Jun, Osteoarthritis, unspecified osteoarthritis type, unspecified site M19.90 [facility] [address] [address] May, [facility] [id number] [place] [address] May, Osteoarthritis, unspecified osteoarthritis type, unspecified site M19.90 [facility] [id number] [place] [address] Apr, Osteoarthritis, unspecified osteoarthritis type, unspecified site M19.90 [facility] [id number] [place] [address] Mar, [facility] [id number] [place] [address] Mar, Osteoarthritis, unspecified osteoarthritis type, unspecified site M19.90 and Lumbago with sciatica, left side M54.42 [facility] [address] [place] [id number] [place] [address] Feb, [facility] [id number] [place] [address] Feb, [facility] [id number] [place] [address] Feb, Osteoarthritis, unspecified osteoarthritis type, unspecified site M19.90 [facility] [id number] [place] [address] Feb, [facility] [id number] [place] [address] Feb, Low back pain M54.5 and Other chronic pain G89.29 [facility] [address] [place] [id number] [place] [address] Feb, [facility] [id number] [place] [address] Jan, [facility] [id number] [place] [address] 05 Jan, 2016 [facility] [address] [place] [address] 24 Dec, 2015 Lumbago with sciatica, left side M54.42 [facility] [id number] [place] [address] 15 Dec, 2015 Irritable bowel syndrome with both constipation and diarrhea K58.0 ; Screening, lipid Z13.220 ; Nocturia R35.1 ; Family history of diabetes mellitus Z83.[address] [facility] [address] [id number] [place] [address] 14 Dec, 2015 Irritable bowel syndrome with both constipation and diarrhea K58.0 ; Nocturia R35.1 ; Family history of diabetes mellitus Z83.3 ; Dysuria R30.0 and Screening, lipid Z13.220 [place] [address] [place] [id number] [place] [address] 12 Dec, 2015 [facility] [id number] [place] [address] 07 Dec, 2015 [facility] [id number] [place] [address] 2015 Pain with swallowing R13.10 [facility] [address] [id number] [place] [address] Nov, [facility] [id number] [place] [address] Nov, [facility] [id number] [place] [address] Oct, [facility] [id number] [place] [address] Sep, [facility] [id number] [place] [address] 07 Sep, 2015 Osteoarthritis, unspecified osteoarthritis type, unspecified site M19.90 [place] [address] [place] [address] 07 Sep, [address] [facility] [id number] [place] [address] 07 Sep, 2015 Lumbago with sciatica, right side M54.41 and Bilateral impacted cerumen H61.23 [facility] [id number] [place] [address] Sep, [facility] [id number] [place] [address] August, Bronchitis J40 [facility] [id number] [place] [address] August, [facility] [id number] [place] [address] August, [facility] [id number] [place] [address] August, [facility] [id number] [place] [address] Jul, [facility] [id number] [place] [address] Jul, Back pain M54.9 [facility] [id number] [place] [address] Jun, Degenerative disc disease at L5-S1 level M51.[address] [facility] [id number] [place] [address] Jun, [facility] [id number] [place] [address] May, [facility] [id number] [place] [address] Apr, [facility] [id number] [place] [address] Mar, [facility] [address] [place] [address] Mar, [facility] [address] [address] Feb, [facility] [address] [place] [place] [address] Jan, [facility] [id number] [place] [address] Dec, [facility] [id number] [place] [address] Nov, [facility] [id number] [place] [address], [place] [address] Oct, [facility] [id number] [address] Oct, Right shoulder pain 719.41 [facility] [id number] [place] [address] Sep, [facility] [address] [address] Sep, Vertigo 780.4 and Elbow fracture, right 812.40 [facility] [address] [address] Sep, [facility] [address] [address] August, [facility] [address] [address] Jul, [facility] [address] [address] Jul, [facility] [address] [address] Jun, [facility] [address] [place] [address] Jun, [facility] [place] [facility] [address] [id number] [place] [address] Jun, [facility] [place] [facility] [address] [id number] [place] [address] Jun, [facility] [place] [facility] [address] [id number] [place] [address] Jun, [facility] [place] [facility] [address] [id number] [place] [address] Jun, [facility] [place] [facility] [address] [id number] [place] [address] May, [facility] [place] [facility] [address] [id number] [place] [address] May, [facility] [place] [facility] [address] [id number] [place] [address] May, [facility] [place] [facility] [address] [id number] [place] [address] May, [facility] [place] [facility] [address] [id number] [place] [address] May, [facility] [place] [facility] [address] [facility] [id number] [place] [address] May, [facility] [place] [facility] [address] [id number] [place] [address] Apr, [facility] [place] [facility] [address] [id number] [place] [address] Apr, [facility] [place] [facility] [address] [id number] [place] [address] Apr, [facility] [place] [facility] [address] [id number] [place] [address] Apr, [facility] [place] [facility] [address] [id number] [place] [address] Apr, [facility] [place] [facility] [address] [id number] [place] [address] Apr, [facility] [place] [facility] [address] [id number] [place] [address] Apr, [facility] [place] [facility] [address] [id number] [place] [address] Mar, [facility] [place] [facility] [address] [id number] [place] [address] Mar, [facility] [place] [facility] [address] [id number] [place] [address] Mar, [facility] [place] [facility] [address] [id number] [place] [address] Mar, [facility] [place] [facility] [address] [id number] [place] [address] Mar, [facility] [place] [facility] [address] [id number] [place] [address] Mar, [facility] [place] [facility] [address] [id number] [place] [address] Mar, [facility] [place] [facility] [address] [id number] [place] [address] Mar, [facility] [place] [facility] [address] [id number] [place] [address] Mar, [facility] [place] [facility] [address] [id number] [place] [address] Mar, [facility] [place] [facility] [address] [id number] [place] [address] Mar, [facility] [place] [facility] [address] [id number] [place] [address] Mar, [facility] [place] [facility] [address] [id number] [place] [address] Mar, [facility] [place] [facility] [address] [id number] [place] [address] Mar, [facility] [place] [facility] [address] [id number] [place] [address] Mar, [facility] [place] [facility] [address] [id number] [place] [address] Feb, [facility] [place] [facility] [address] [id number] [place] [address] Feb, [facility] [place] [facility] [address] [id number] [place] [address] Feb, [facility] [place] [facility] [address] [id number] [place] [address] Feb, [facility] [place] [facility] [address] [id number] [place] [address] Feb, [facility] [place] [facility] [address] [id number] [place] [address] Feb, [facility] [place] [facility] [address] [id number] [place] [address] Jan, [facility] [place] [facility] [address] [id number] [place] [address] Jan, [facility] [place] [facility] [address] [id number] [place] [address] Jan, [facility] [place] [facility] [address] [facility] [id number] [place] [address] Jan, [facility] [place] [facility] [address] [id number] [place] [address] Jan, [facility] [place] [facility] [address] [id number] [place] [address] Jan, [facility] [place] [facility] [address] [id number] [place] [address] Dec, [facility] [place] [facility] [address] [id number] [place] [address] 29 Dec, 2013 [facility] [place] [facility] [address] [id number] [place] [address] Dec, [facility] [place] [facility] [address] [id number] [place] [address] 11 Dec, 2013 [facility] [place] [facility] [address] [id number] [place] [address] Dec, 2013 [facility] [place] [facility] [address] [id number] [place] [address] Dec, 2013 [facility] [place] [facility] [address] [id number] [place] [address] Dec, 2013 [facility] [place] [facility] [address] [id number] [place] [address] Dec, 2013 [facility] [place] [facility] [address] [id number] [place] [address] Dec, 2013 [facility] [place] [facility] [address] [id number] [place] [address] Dec, 2013 [facility] [place] [facility] [address] [id number] [place] [address] Dec, 2013 [facility] [place] [facility] [address] [id number] [place] [address] Nov, [facility] [place] [facility] [address] [id number] [place] [address] Nov, [facility] [place] [facility] [address] [id number] [place] [address] Nov, [facility] [place] [facility] [address] [id number] [place] [address] Nov, [facility] [place] [facility] [address] [id number] [place] [address] Nov, [facility] [place] [facility] [address] [id number] [place] [address] Nov, [facility] [place] [facility] [address] [id number] [place] [address] Nov, [facility] [place] [facility] [address] [id number] [place] [address] Nov, [facility] [place] [facility] [address] [id number] [place] [address] Nov, [facility] [place] [facility] [address] [id number] [place] [address] Nov, [facility] [place] [facility] [address] [id number] [place] [address] Oct, [facility] [place] [facility] [address] [id number] [place] [address] Oct, [facility] [place] [facility] [address] [id number] [place] [address] Oct, [facility] [place] [facility] [address] [id number] [place] [address] Oct, [facility] [place] [facility] [address] [id number] [place] [address] Oct, [facility] [place] [facility] [address] [id number] [place] [address] Oct, [facility] [place] [facility] [address] [id number] [place] [address] Oct, [facility] [place] [facility] [address] [id number] [place] [address] Oct, [facility] [place] [facility] [address] [id number] [place] [address] Oct, [facility] [place] [facility] [address] [id number] [place] [address] Oct, [facility] [place] [facility] [address] [id number] [place] [address] Oct, [facility] [place] [facility] [address] [id number] [place] [address] Oct, [facility] [place] [facility] [address] [id number] [place] [address] Oct, [facility] [place] [facility] [address] [id number] [place] [address] Sep, [facility] [place] [facility] [address] [id number] [place] [address] Sep, [facility] [place] [facility] [address] [id number] [place] [address] Sep, [facility] [place] [facility] [address] [id number] [place] [address] Sep, [facility] [place] [facility] [address] [id number] [place] [address] August, [facility] [place] [facility] [address] [id number] [place] [address] August, [facility] [place] [facility] [address] [id number] [place] [address] August, [facility] [place] [facility] [address] [id number] [place] [address] August, [facility] [place] [facility] [address] [id number] [place] [address] August, [facility] [place] [facility] [address] [id number] [place] [address] August, [facility] [place] [facility] [address] [id number] [place] [address] August, [facility] [place] [facility] [address] [id number] [place] [address] August, [facility] [place] [facility] [address] [id number] [place] [address] Jul, [facility] [place] [facility] [address] [id number] [place] [address] Jul, [facility] [place] [facility] [address] [id number] [place] [address] Jun, [facility] [place] [facility] [address] [id number] [place] [address] Jun, [facility] [place] [facility] [address] [id number] [place] [address] Jun, [facility] [place] [facility] [address] [id number] [place] [address] Jun, [facility] [place] [facility] [address] [id number] [place] [address] Jun, [facility] [place] [facility] [address] [id number] [place] [address] Jun, [facility] [place] [facility] [address] [id number] [place] [address] May, [facility] [place] [facility] [address] [id number] [place] [address] May, [facility] [place] [facility] [address] [id number] [place] [address] May, [facility] [place] [facility] [address] [id number] [place] [address] May, [facility] [place] [facility] [address] [id number] [place] [address] 07 May, 2013 [facility] [place] [facility] [address] [id number] [place] [address] May, [facility] [place] [facility] [address] [id number] [place] [address] Apr, [facility] [place] [facility] [address] [id number] [place] [address] Apr, [facility] [place] [facility] [address] [id number] [place] [address] Feb, [facility] [place] [facility] [address] [id number] [place] [address] Feb, [facility] [place] [facility] [address] [id number] [place] [address] Feb, [facility] [place] [facility] [address] [id number] [place] [address] 15 Feb, 2013 [facility] [place] [facility] [address] [id number] [place] [address] 13 Feb, 2013 [facility] [place] [facility] [address] [id number] [place] [address] 13 Feb, 2013 [facility] [place] [facility] [address] [id number] [place] [address] Feb, [facility] [place] [facility] [address] [id number] [place] [address] Feb, [facility] [place] [facility] [address] [id number] [place] [address] Feb, [facility] [place] [facility] [address] [id number] [place] [address] Jan, [facility] [place] [facility] [address] [id number] [place] [address] Jan, [facility] [place] [facility] [address] [id number] [place] [address] Jan, [facility] [place] [facility] [address] [id number] [place] [address] Jan, [facility] [place] [facility] [address] [id number] [place] [address] Jan, [facility] [place] [facility] [address] [id number] [place] [address] 02 Jan, 2013 [facility] [place] [facility] [address] [id number] [place] [address] 17 Dec, 2012 [facility] [place] [facility] [address] [id number] [place] [address] 12 Dec, 2012 [facility] [place] [facility] [address] [id number] [place] [address] 05 Dec, 2012 [facility] [place] [facility] [address] [id number] [place] [address] Dec, [facility] [address] [id number] [place] [address] Oct, [facility] [address] [id number] [place] [address] Oct, [facility] [address] [id number] [place] [address] Oct, [facility] [address] [id number] [place] [address] Oct, [facility] [address] [id number] [place] [address] Oct, [facility] [address] [id number] [place] [address] Sep, [facility] [address] [id number] [place] [address] August, [facility] [address] [id number] [place] [address] August, [facility] [address] [id number] [place] [address] August, [facility] [address] [id number] [place] [address] August, [facility] [address] [id number] [place] [address] August, [facility] [place] [facility] [address] [id number] [place] [address] August, [facility] [place] [facility] [address] [id number] [place] [address] August, [facility] [place] [facility] [address] [id number] [place] [address] August, [facility] [place] [facility] [address] [id number] [place] [address] August, [facility] [place] [facility] [address] [id number] [place] [address] August, [facility] [address] [id number] [place] [address] August, [facility] [place] [facility] [address] [id number] [place] [address] August, [facility] [address] [id number] [place] [address] Jun, [facility] [place] [facility] [address] [id number] [place] [address] Jun, [facility] [address] [id number] [place] [address] Jun, [facility] [place] [facility] [address] [id number] [place] [address] May, [facility] [address] [id number] [place] [address] May, [facility] [place] [facility] [address] [id number] [place] [address] Mar, [facility] [place] [facility] [address] [id number] [place] [address] Mar, [facility] [address] [id number] [place] [address] Feb, [facility] [place] [facility] [address] [id number] [place] [address] Feb, [facility] [place] [facility] [address] [id number] [place] [address] Feb, [facility] [place] [facility] [address] [id number] [place] [address] Feb, [facility] [place] [facility] [address] [id number] [place] [address] Dec, [facility] [place] [facility] [address] [id number] [place] [address] August, [facility] [place] [facility] [address] [id number] [place] [address] Jul, [facility] [place] [facility] [address] [id number] [place] [address] Jul, [facility] [place] [facility] [address] [id number] [place] [address] Jun, [facility] [place] [facility] [address] [id number] [place] [address] Jun, [facility] [address] [id number] [place] [address] Jun, [facility] [place] [facility] [address] [id number] [place] [address] Jun, [facility] [address] [id number] [place] [address] Jun, [facility] [address] [id number] [place] [address] May, [facility] [place] [facility] [address] [id number] [place] [address] May, [facility] [address] [id number] [place] [address] May, [facility] [place] [facility] [address] [id number] [place] [address] May, [facility] [place] [facility] [address] [id number] [place] [address] Apr, [facility] [place] [facility] [address] [id number] [place] [address] Apr, [facility] [place] [facility] [address] [id number] [place] [address] Apr, [facility] [place] [facility] [address] [id number] [place] [address] Mar, [facility] [place] [facility] [address] [id number] [address] Mar, [facility] [address] [id number] [address] Mar, [facility] [address] [id number] [address] Mar, [facility] [address] [id number] [address] May, [facility] [id number] [address] Feb, [facility] [id number] [address] Feb, [facility] [id number] [address] Jan, [facility] [address] [id number] [address] Jan, IMMUNIZATIONS No Known Immunizations SOCIAL HISTORY Never Assessed REASON FOR VISIT EMR-[facility] [place] PLAN OF CARE VITAL SIGNS MEDICATIONS Unknown [...]
--- OUTSIDE RECORDS SUMMARY | 2018-09-19 01:19 | XMS REPORT ---
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 Head Name Role Phone Migration, Doctor Unavailable Unavailable PROBLEMS Type Condition ICD9-CM Code VWF64-DF Code Onset Dates Condition Status SNOMED Code Problem Other half-way (current) drug therapy Z79.899 Active 823266598 Problem Encounter for therapeutic drug level monitoring Z51.81 Active 700915639 Problem 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 Active 539098594 Problem Benign prostatic hyperplasia, unspecified whether lower urinary tract symptoms present N40.0 Active 313001985 Problem Screening, lipid Z13.220 Active 713261047 Problem Shortness of breath R06.02 Active 565521975 Problem 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 Active 279737674 Problem Osteoarthritis, unspecified osteoarthritis type, unspecified site M19.90 Active 679034482 Problem Other chronic pain G89.29 Active 01700546 Problem Gastroesophageal reflux disease without esophagitis K21.9 Active 322655272 ALLERGIES No Information ENCOUNTERS Encounter Location Date Diagnosis [place] [address], [place] [address] Jun, [place] [id number] [place] [address] May, Osteoarthritis, unspecified osteoarthritis type, unspecified site M19.90 [place] [address], [place] [address] May, [place] [id number] [place] [address] May, [place] [address] [place] [address] May, Osteopenia determined by x-ray M85.80 ; Shortness of breath R06.02 and Screening, lipid Z13.220 [place] [address], [place] [address] May, [facility] [address] [address] Apr, Osteoarthritis, unspecified osteoarthritis type, unspecified site M19.90 [facility] [address], [place] [address] Apr, Other parts counterman (current) drug therapy Z79.899 [facility] [id number] [address] Apr, [place] [id number] [place] [address] Apr, Osteoarthritis, unspecified osteoarthritis type, unspecified site M19.90 [place] [address], [place] [address] Mar, [place] [id number] [address] Mar, Encounter for Medicare annual wellness exam Z00.00 ; Osteoarthritis, unspecified osteoarthritis type, unspecified site M19.90 ; Benign prostatic hyperplasia, unspecified whether lower urinary tract symptoms present N40.0 ; 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 and At high risk for osteoporosis Z91.89 [facility] [address] [address] Mar, Osteoarthritis, unspecified osteoarthritis type, unspecified site M19.90 [facility] [address], [place] [address] Feb, [facility] [address], [place] [address] Feb, Osteoarthritis, unspecified osteoarthritis type, unspecified site M19.90 [facility] [id number] [address] Jan, [facility] [id number] [address] Jan, Osteoarthritis, unspecified osteoarthritis type, unspecified site M19.90 [facility] [address] [place] [address] 08 Jan, 2018 Low back pain M54.5 and Other chronic pain G89.29 [facility] [id number] [place] [address] 18 Dec, 2017 Osteoarthritis, unspecified osteoarthritis type, unspecified site M19.90 [facility] [id number] [place] [address] Dec, [place] [id number] [place] [address] Nov, Osteoarthritis, unspecified osteoarthritis type, unspecified site M19.90 [place] [id number] [address] Nov, Shortness of breath R06.02 [facility] [id number] [address] Nov, [place] [id number] [place] [address] Nov, [facility] [id number] [place] [address] Oct, Osteoarthritis, unspecified osteoarthritis type, unspecified site M19.90 [facility] [address], [place] [address] Sep, [facility] [id number] [place] [address] Sep, Osteoarthritis, unspecified osteoarthritis type, unspecified site M19.90 [facility] [address] [place] [address] August, Other chronic pain G89.29 and Other specified personal risk factors, not elsewhere classified Z91.89 [facility] [address] [place] [address] August, Osteoarthritis, unspecified osteoarthritis type, unspecified site M19.90 [place] [id number] [place] [address] Jul, Osteoarthritis, unspecified osteoarthritis type, unspecified site M19.90 [place] [id number] [place] [address] Jun, Osteoarthritis, unspecified osteoarthritis type, unspecified site M19.90 [place] [id number] [place] [address] Jun, [place] [address] [address] Jun, Osteoarthritis, unspecified osteoarthritis type, unspecified site M19.90 [place] [address] [id number] [place] [address] May, [place] [id number] [place] [address] May, Benign prostatic hyperplasia, unspecified whether lower urinary tract symptoms present N40.0 [place] [id number] [place] [address] May, Osteoarthritis, unspecified osteoarthritis type, unspecified site M19.90 [place] [id number] [place] [address] May, [place] [address] [address] [id number] [place] [address] Apr, Other chronic pain G89.29 ; Family history of diabetes mellitus Z83.3 ; Forgetfulness R68.89 ; History of multiple concussions Z87.820 ; Gastroesophageal reflux disease without esophagitis K21.9 and Screening, lipid Z13.220 [place] [address] [place] [address] Apr, Other chronic pain G89.29 ; Forgetfulness R68.89 ; History of multiple concussions Z87.820 ; Gastroesophageal reflux disease without esophagitis K21.9 ; Screening, lipid Z13.220 and Family history of diabetes mellitus Z83.3 [place] [address] [address] [id number] [place] [address] Apr, Osteoarthritis, unspecified osteoarthritis type, unspecified site M19.90 [place] [address] [id number] [place] [address] Apr, Osteoarthritis, unspecified osteoarthritis type, unspecified site M19.90 [place] [address] [id number] [place] [address] Apr, [place] [address] [id number] [place] [address] Mar, Osteoarthritis, unspecified osteoarthritis type, unspecified site M19.90 [place] [address] [id number] [place] [address] Feb, Osteoarthritis, unspecified osteoarthritis type, unspecified site M19.90 [place] [id number] [place] [address] Jan, Osteoarthritis, unspecified osteoarthritis type, unspecified site M19.90 [place] [id number] [place] [address] Dec, Osteoarthritis, unspecified osteoarthritis type, unspecified site M19.90 [place] [address] [id number] [place] [address] Dec, [place] [address] [id number] [place] [address] Nov, Encounter for screening for lipid disorder Z13.220 [place] [address] [id number] [place] [address] Nov, Osteoarthritis, unspecified osteoarthritis type, unspecified site M19.90 ; Encounter for screening for lipid disorder Z13.220 and Other chronic pain G89.29 [place] [address] [address] [id number] [place] [address] Nov, Osteoarthritis, unspecified osteoarthritis type, unspecified site M19.90 [facility] [address] [place] [address] Nov, [facility] [id number] [place] [address] Nov, [facility] [address] [id number] [place] [address] Oct, Osteoarthritis, unspecified osteoarthritis type, unspecified site M19.90 [facility] [id number] [place] [address] Oct, Gastroesophageal reflux disease without esophagitis K21.9 [place] [address] [address] [id number] [place] [address] Sep, Osteoarthritis, unspecified osteoarthritis type, unspecified site M19.90 [place] [id number] [place] [address] August, Osteoarthritis, unspecified osteoarthritis type, unspecified site M19.90 [place] [address] [id number] [place] [address] August, Osteoarthritis, unspecified osteoarthritis type, unspecified site M19.90 [place] [address] [id number] [place] [address] Jul, Osteoarthritis, unspecified osteoarthritis type, unspecified site M19.90 and Gastroesophageal reflux disease without esophagitis K21.9 [facility] [address] [place] [address] Jul, Osteoarthritis, unspecified osteoarthritis type, unspecified site M19.90 [facility] [id number] [place] [address] Jun, Ventral hernia without obstruction or gangrene K43.9 [facility] [id number] [place] [address] Jun, Osteoarthritis, unspecified osteoarthritis type, unspecified site M19.90 [facility] [address], [place] [address] May, [facility] [id number] [place] [address] May, Osteoarthritis, unspecified osteoarthritis type, unspecified site M19.90 [facility] [id number] [place] [address] Apr, Osteoarthritis, unspecified osteoarthritis type, unspecified site M19.90 [facility] [id number] [place] [address] Mar, [facility] [id number] [place] [address] Mar, Osteoarthritis, unspecified osteoarthritis type, unspecified site M19.90 and Lumbago with sciatica, left side M54.42 [facility] [address] [id number] [place] [address] Feb, [facility] [id number] [place] [address] Feb, [facility] [id number] [place] [address] Feb, Osteoarthritis, unspecified osteoarthritis type, unspecified site M19.90 [facility] [id number] [place] [address] Feb, [facility] [id number] [place] [address] Feb, Low back pain M54.5 and Other chronic pain G89.29 [facility] [address] [id number] [place] [address] Feb, [facility] [id number] [place] [address] Jan, [facility] [id number] [place] [address] 05 Jan, 2016 [facility] [address] [place] [address] 24 Dec, 2015 Lumbago with sciatica, left side M54.42 [facility] [id number] [place] [address] 15 Dec, 2015 Irritable bowel syndrome with both constipation and diarrhea K58.0 ; Screening, lipid Z13.220 ; Nocturia R35.1 ; Family history of diabetes mellitus Z83.3 and Dysuria R30.0 [facility] [id number] [place] [address] 14 Dec, 2015 Irritable bowel syndrome with both constipation and diarrhea K58.0 ; Nocturia R35.1 ; Family history of diabetes mellitus Z83.3 ; Dysuria R30.0 and Screening, lipid Z13.220 [place] [id number] [place] [address] 12 Dec, 2015 [facility] [id number] [place] [address] 07 Dec, 2015 [facility] [id number] [place] [address] 2015 Pain with swallowing R13.10 [facility] [id number] [place] [address] Nov, [facility] [id number] [place] [address] Nov, [facility] [id number] [place] [address] Oct, [facility] [id number] [place] [address] Sep, [facility] [id number] [place] [address] 07 Sep, 2015 Osteoarthritis, unspecified osteoarthritis type, unspecified site M19.90 [place] [address] [place] [address] 07 Sep, 2015 Back pain M54.9 [facility] [id number] [place] [address] 07 Sep, 2015 Lumbago with sciatica, right side M54.41 and Bilateral impacted cerumen H61.23 [facility] [id number] [place] [address] Sep, [facility] [id number] [place] [address] August, Bronchitis J40 [facility] [id number] [place] [address] August, [facility] [id number] [place] [address] August, [facility] [id number] [place] [address] August, [facility] [id number] [place] [address] Jul, [facility] [id number] [place] [address] Jul, Back pain M54.9 [facility] [id number] [place] [address] Jun, Degenerative disc disease at L5-S1 level M51.36 and Bronchitis J40 [facility] [id number] [place] [address] Jun, [facility] [id number] [place] [address] May, [facility] [id number] [place] [address] Apr, [facility] [id number] [place] [address] Mar, [facility] [address] [place] [address] Mar, [facility] [address], [place] [address] Feb, [facility] [address] [place] [address] Jan, [facility] [id number] [place] [address] Dec, [facility] [id number] [place] [address] Nov, [facility] [id number] [place] [address], [place] [address] Oct, [facility] [id number] [address] Oct, Right shoulder pain 719.41 [facility] [id number] [place] [address] Sep, [facility] [address], [place] [address] Sep, Vertigo 780.4 and Elbow fracture, right 812.40 [facility] [address], [place] [address] Sep, [facility] [address], [place] [address] August, [facility] [address], [place] [address] Jul, [facility] [address], [place] [address] Jul, [facility] [address], [place] [address] Jun, [facility] [address] [place] [address] Jun, [facility] [place] [facility] [address] [id number] [place] [address] Jun, [facility] [place] [facility] [address] [id number] [place] [address] Jun, [facility] [place] [facility] [address] [id number] [place] [address] Jun, [facility] [place] [facility] [address] [id number] [place] [address] Jun, [facility] [place] [facility] [address] [id number] [place] [address] May, [facility] [place] [facility] [address] [id number] [place] [address] May, [facility] [place] [facility] [address] [id number] [place] [address] May, [facility] [place] [facility] [address] [id number] [place] [address] May, [facility] [place] [facility] [address] [id number] [place] [address] May, [facility] [place] [facility] [address] [facility] [id number] [place] [address] May, [facility] [place] [facility] [address] [id number] [place] [address] Apr, [facility] [place] [facility] [address] [id number] [place] [address] Apr, [facility] [place] [facility] [address] [id number] [place] [address] Apr, [facility] [place] [facility] [address] [id number] [place] [address] Apr, [facility] [place] [facility] [address] [id number] [place] [address] Apr, [facility] [place] [facility] [address] [id number] [place] [address] Apr, [facility] [place] [facility] [address] [id number] [place] [address] Apr, [facility] [place] [facility] [address] [id number] [place] [address] Mar, [facility] [place] [facility] [address] [id number] [place] [address] Mar, [facility] [place] [facility] [address] [id number] [place] [address] Mar, [facility] [place] [facility] [address] [id number] [place] [address] Mar, [facility] [place] [facility] [address] [id number] [place] [address] Mar, [facility] [place] [facility] [address] [id number] [place] [address] Mar, [facility] [place] [facility] [address] [id number] [place] [address] Mar, [facility] [place] [facility] [address] [id number] [place] [address] Mar, [facility] [place] [facility] [address] [id number] [place] [address] Mar, [facility] [place] [facility] [address] [id number] [place] [address] Mar, [facility] [place] [facility] [address] [id number] [place] [address] Mar, [facility] [place] [facility] [address] [id number] [place] [address] Mar, [facility] [place] [facility] [address] [id number] [place] [address] Mar, [facility] [place] [facility] [address] [id number] [place] [address] Mar, [facility] [place] [facility] [address] [id number] [place] [address] Mar, [facility] [place] [facility] [address] [id number] [place] [address] Feb, [facility] [place] [facility] [address] [id number] [place] [address] Feb, [facility] [place] [facility] [address] [id number] [place] [address] Feb, [facility] [place] [facility] [address] [id number] [place] [address] Feb, [facility] [place] [facility] [address] [id number] [place] [address] Feb, [facility] [place] [facility] [address] [id number] [place] [address] Feb, [facility] [place] [facility] [address] [id number] [place] [address] Jan, [facility] [place] [facility] [address] [id number] [place] [address] Jan, [facility] [place] [facility] [address] [id number] [place] [address] Jan, [facility] [place] [facility] [address] [facility] [id number] [place] [address] Jan, [facility] [place] [facility] [address] [id number] [place] [address] Jan, [facility] [place] [facility] [address] [id number] [place] [address] Jan, [facility] [place] [facility] [address] [id number] [place] [address] Dec, [facility] [place] [facility] [address] [id number] [place] [address] 29 Dec, 2013 [facility] [place] [facility] [address] [id number] [place] [address] Dec, [facility] [place] [facility] [address] [id number] [place] [address] 11 Dec, 2013 [facility] [place] [facility] [address] [id number] [place] [address] Dec, 2013 [facility] [place] [facility] [address] [id number] [place] [address] Dec, 2013 [facility] [place] [facility] [address] [id number] [place] [address] Dec, 2013 [facility] [place] [facility] [address] [id number] [place] [address] Dec, 2013 [facility] [place] [facility] [address] [id number] [place] [address] Dec, 2013 [facility] [place] [facility] [address] [id number] [place] [address] Dec, 2013 [facility] [place] [facility] [address] [id number] [place] [address] Dec, 2013 [facility] [place] [facility] [address] [id number] [place] [address] Nov, [facility] [place] [facility] [address] [id number] [place] [address] Nov, [facility] [place] [facility] [address] [id number], [place] [address] Nov, [facility] [place] [facility] [address] [id number], [place] [address] Nov, [facility] [place] [facility] [address] [id number] [place] [address] Nov, [facility] [place] [facility] [address] [id number] [place] [address] Nov, [facility] [place] [facility] [address] [id number] [place] [address] Nov, [facility] [place] [facility] [address] [id number], [place] [address] Nov, [facility] [place] [facility] [address] [id number] [place] [address] Nov, [facility] [place] [facility] [address] [id number] [place] [address] Nov, [facility] [place] [facility] [address] [id number] [place] [address] Oct, [facility] [place] [facility] [address] [id number] [place] [address] Oct, [facility] [place] [facility] [address] [id number] [place] [address] Oct, [facility] [place] [facility] [address] [id number] [place] [address] Oct, [facility] [place] [facility] [address] [id number] [place] [address] Oct, [facility] [place] [facility] [address] [id number] [place] [address] Oct, [facility] [place] [facility] [address] [id number] [place] [address] Oct, [facility] [place] [facility] [address] [id number] [place] [address] Oct, [facility] [place] [facility] [address] [id number] [place] [address] Oct, [facility] [place] [facility] [address] [id number] [place] [address] Oct, [facility] [place] [facility] [address] [id number] [place] [address] Oct, [facility] [place] [facility] [address] [id number] [place] [address] Oct, [facility] [place] [facility] [address] [id number] [place] [address] Oct, [facility] [place] [facility] [address] [id number] [place] [address] Sep, [facility] [place] [facility] [address] [id number] [place] [address] Sep, [facility] [place] [facility] [address] [id number] [place] [address] Sep, [facility] [place] [facility] [address] [id number] [place] [address] Sep, [facility] [place] [facility] [address] [id number] [place] [address] August, [facility] [place] [facility] [address] [id number] [place] [address] August, [facility] [place] [facility] [address] [id number] [place] [address] August, [facility] [place] [facility] [address] [id number] [place] [address] August, [facility] [place] [facility] [address] [id number] [place] [address] August, [facility] [place] [facility] [address] [id number] [place] [address] August, [facility] [place] [facility] [address] [id number] [place] [address] August, [facility] [place] [facility] [address] [id number] [place] [address] August, [facility] [place] [facility] [address] [id number] [place] [address] Jul, [facility] [place] [facility] [address] [id number] [place] [address] Jul, [facility] [place] [facility] [address] [id number] [place] [address] Jun, [facility] [place] [facility] [address] [id number] [place] [address] Jun, [facility] [place] [facility] [address] [id number] [place] [address] Jun, [facility] [place] [facility] [address] [id number] [place] [address] Jun, [facility] [place] [facility] [address] [id number] [place] [address] Jun, [facility] [place] [facility] [address] [id number] [place] [address] Jun, [facility] [place] [facility] [address] [id number] [place] [address] May, [facility] [place] [facility] [address] [id number] [place] [address] May, [facility] [place] [facility] [address] [id number] [place] [address] May, [facility] [place] [facility] [address] [id number] [place] [address] May, [facility] [place] [facility] [address] [id number] [place] [address] 07 May, 2013 [facility] [place] [facility] [address] [id number] [place] [address] May, [facility] [place] [facility] [address] [id number] [place] [address] Apr, [facility] [place] [facility] [address] [id number] [place] [address] Apr, [facility] [place] [facility] [address] [id number] [place] [address] Feb, [facility] [place] [facility] [address] [id number] [place] [address] Feb, [facility] [place] [facility] [address] [id number] [place] [address] Feb, [facility] [place] [facility] [address] [id number] [place] [address] 15 Feb, 2013 [facility] [place] [facility] [address] [id number] [place] [address] 13 Feb, 2013 [facility] [place] [facility] [address] [id number] [place] [address] 13 Feb, 2013 [facility] [place] [facility] [address] [id number] [place] [address] Feb, [facility] [place] [facility] [address] [id number] [place] [address] Feb, [facility] [place] [facility] [address] [id number] [place] [address] Feb, [facility] [place] [facility] [address] [id number] [place] [address] Jan, [facility] [place] [facility] [address] [id number] [place] [address] Jan, [facility] [place] [facility] [address] [id number] [place] [address] Jan, [facility] [place] [facility] [address] [id number] [place] [address] Jan, [facility] [place] [facility] [address] [id number] [place] [address] Jan, [facility] [place] [facility] [address] [id number] [place] [address] 02 Jan, 2013 [facility] [place] [facility] [address] [id number] [place] [address] 17 Dec, 2012 [facility] [place] [facility] [address] [id number] [place] [address] 12 Dec, 2012 [facility] [place] [facility] [address] [id number] [place] [address] 05 Dec, 2012 [facility] [place] [facility] [address] [id number] [place] [address] Dec, [facility] [address] [id number] [place] [address] Oct, [facility] [address] [id number] [place] [address] Oct, [facility] [address] [id number] [place] [address] Oct, [facility] [address] [id number] [place] [address] Oct, [facility] [address] [id number] [place] [address] Oct, [facility] [address] [id number] [place] [address] Sep, [facility] [address] [id number] [place] [address] August, [facility] [address] [id number] [place] [address] August, [facility] [address] [id number] [place] [address] August, [facility] [address] [id number] [place] [address] August, [facility] [address] [id number] [place] [address] August, [facility] [place] [facility] [address] [id number] [place] [address] August, [facility] [place] [facility] [address] [id number] [place] [address] August, [facility] [place] [facility] [address] [id number] [place] [address] August, [facility] [place] [facility] [address] [id number] [place] [address] August, [facility] [place] [facility] [address] [id number] [place] [address] August, [facility] [address] [id number] [place] [address] August, [facility] [place] [facility] [address] [id number] [place] [address] August, [facility] [address] [id number] [place] [address] Jun, [facility] [place] [facility] [address] [id number] [place] [address] Jun, [facility] [address] [id number] [place] [address] Jun, [facility] [place] [facility] [address] [id number] [place] [address] May, [facility] [address] [id number] [place] [address] May, [facility] [place] [facility] [address] [id number] [place] [address] Mar, [facility] [place] [facility] [address] [id number] [place] [address] Mar, [facility] [address] [id number] [place] [address] Feb, [facility] [place] [facility] [address] [id number] [place] [address] Feb, [facility] [place] [facility] [address] [id number] [place] [address] Feb, [facility] [place] [facility] [address] [id number] [place] [address] Feb, [facility] [place] [facility] [address] [id number] [place] [address] Dec, [facility] [place] [facility] [address] [id number] [place] [address] August, [facility] [place] [facility] [address] [id number] [place] [address] Jul, [facility] [place] [facility] [address] [id number] [place] [address] Jul, [facility] [place] [facility] [address] [id number] [place] [address] Jun, [facility] [place] [facility] [address] [id number] [place] [address] Jun, [facility] [address] [id number] [place] [address] Jun, [facility] [place] [facility] [address] [id number] [place] [address] Jun, [facility] [address] [id number] [place] [address] Jun, [facility] [address] [id number] [place] [address] May, [facility] [place] [facility] [address] [id number] [place] [address] May, [facility] [address] [id number] [place] [address] May, [facility] [place] [facility] [address] [id number] [place] [address] May, [facility] [place] [facility] [address] [id number] [place] [address] Apr, [facility] [place] [facility] [address] [id number] [place] [address] Apr, [facility] [place] [facility] [address] [id number] [place] [address] Apr, [facility] [place] [facility] [address] [id number] [place] [address] Mar, [facility] [place] [facility] [address] [id number], [place] [address] Mar, [facility] [address] [id number] [address] Mar, [facility] [address] [id number] [address] Mar, [facility] [address] [id number] [address] May, [facility] [id number], [place] [address] Feb, [facility] [id number], [place] [address] Feb, [facility] [id number], [place] [address] Jan, [facility] [address] [id number] [address] Jan, IMMUNIZATIONS No Known Immunizations SOCIAL HISTORY Never Assessed REASON FOR VISIT [place] [place] CARE VITAL SIGNS MEDICATIONS Unknown [...]
--- OUTSIDE RECORDS SUMMARY | 2018-09-19 01:20 | XMS REPORT ---
Author Author SAMMY ARZATE Organization [facility] Address [address] [place] [address] Care Team Providers Care International Travel Consultant Name Role Phone SAMMY ARZATE Unavailable PROBLEMS Type Condition ICD9-CM Code MCL17-PY Code Onset Dates Condition Status SNOMED Code Problem 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 Active 945376734 Problem Screening, lipid Z13.220 Active 668759295 Problem Shortness of breath R06.02 Active 614956989 Problem Benign prostatic hyperplasia, unspecified whether lower urinary tract symptoms present N40.0 Active 392441288 Problem Osteoarthritis, unspecified osteoarthritis type, unspecified site M19.90 Active 976578810 Problem 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 Active 429077362 Problem Gastroesophageal reflux disease without esophagitis K21.9 Active 943730511 Problem Other chronic pain G89.29 Active 93282927 ALLERGIES No Information ENCOUNTERS Encounter Location Date Diagnosis [place] [id number] [place] [address] Mar, [place] [id number] [address] Mar, Encounter for Medicare annual wellness exam Z00.00 ; Osteoarthritis, unspecified osteoarthritis type, unspecified site M19.90 ; Benign prostatic hyperplasia, unspecified whether lower urinary tract symptoms present N40.0 ; 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 and At high risk for osteoporosis Z91.89 [place] [id number] [address] Mar, Osteoarthritis, unspecified osteoarthritis type, unspecified site M19.90 [facility] [id number] [address] Feb, [place] [address] [address] Feb, Osteoarthritis, unspecified osteoarthritis type, unspecified site M19.90 [facility] [id number] [address] Jan, [facility] [id number] [address] Jan, Osteoarthritis, unspecified osteoarthritis type, unspecified site M19.90 [facility] [id number] [address] Jan, Low back pain M54.5 and Other chronic pain G89.29 [facility] [address] [place] [id number] [place] [address] Dec, Osteoarthritis, unspecified osteoarthritis type, unspecified site M19.90 [facility] [id number] [address] Dec, [facility] [id number] [address] Nov, Osteoarthritis, unspecified osteoarthritis type, unspecified site M19.90 [facility] [address] [address] Nov, Shortness of breath R06.02 [facility] [address] [address] Nov, [facility] [address], [place] [address] Nov, [facility] [address], [place] [address] Oct, Osteoarthritis, unspecified osteoarthritis type, unspecified site M19.90 [facility] [address] [address] Sep, [facility] [address], [place] [address] Sep, Osteoarthritis, unspecified osteoarthritis type, unspecified site M19.90 [place] [address] [place] [id number] [place] [address] August, Other chronic pain G89.29 and Other specified personal risk factors, not elsewhere classified Z91.89 [place] [address] [place] [id number] [place] [address] August, Osteoarthritis, unspecified osteoarthritis type, unspecified site M19.90 [place] [address] [place] [id number] [place] [address] Jul, Osteoarthritis, unspecified osteoarthritis type, unspecified site M19.90 [place] [address] [place] [id number] [place] [address] Jun, Osteoarthritis, unspecified osteoarthritis type, unspecified site M19.90 [place] [address] [place] [id number] [place] [address] Jun, [place] [address] [place] [id number] [place] [address] Jun, Osteoarthritis, unspecified osteoarthritis type, unspecified site M19.90 [place] [address] [place] [id number] [place] [address] May, [place] [address] [place] [id number] [place] [address] May, Benign prostatic hyperplasia, unspecified whether lower urinary tract symptoms present N40.0 [place] [address] [place] [address] [id number] [place] [address] May, Osteoarthritis, unspecified osteoarthritis type, unspecified site M19.90 [place] [address] [place] [id number] [place] [address] May, [place] [address] [place] [id number] [place] [address] Apr, Other chronic pain G89.29 ; Family history of diabetes mellitus Z83.3 ; Forgetfulness R68.89 ; History of multiple concussions Z87.820 ; Gastroesophageal reflux disease without esophagitis K21.9 and Screening, lipid Z13.220 [place] [address] [place] [id number] [place] [address] Apr, Other chronic pain G89.29 ; Forgetfulness R68.89 ; History of multiple concussions Z87.820 ; Gastroesophageal reflux disease without esophagitis K21.9 ; Screening, lipid Z13.220 and Family history of diabetes mellitus Z83.3 [place] [address] [place] [id number] [place] [address] Apr, Osteoarthritis, unspecified osteoarthritis type, unspecified site M19.90 [place] [address] [place] [id number] [place] [address] Apr, Osteoarthritis, unspecified osteoarthritis type, unspecified site M19.90 [place] [address] [place] [id number] [place] [address] Apr, [place] [address] [place] [id number] [place] [address] Mar, Osteoarthritis, unspecified osteoarthritis type, unspecified site M19.90 [place] [address] [place] [id number] [place] [address] Feb, Osteoarthritis, unspecified osteoarthritis type, unspecified site M19.90 [place] [address] [place] [id number] [place] [address] Jan, Osteoarthritis, unspecified osteoarthritis type, unspecified site M19.90 [place] [address] [place] [id number] [place] [address] Dec, Osteoarthritis, unspecified osteoarthritis type, unspecified site M19.90 [place] [address] [place] [id number] [place] [address] Dec, [place] [address] [place] [id number] [place] [address] Nov, Encounter for screening for lipid disorder Z13.220 [place] [address] [place] [id number] [place] [address] Nov, Osteoarthritis, unspecified osteoarthritis type, unspecified site M19.90 ; Encounter for screening for lipid disorder Z13.220 and Other chronic pain G89.29 [place] [address] [place] [id number] [place] [address] Nov, Osteoarthritis, unspecified osteoarthritis type, unspecified site M19.90 [place] [address] [place] [id number] [place] [address] Nov, [place] [address] [place] [id number] [place] [address] Nov, [place] [address] [place] [id number] [place] [address] Oct, Osteoarthritis, unspecified osteoarthritis type, unspecified site M19.90 [place] [address] [place] [id number] [place] [address] Oct, Gastroesophageal reflux disease without esophagitis K21.9 [place] [address] [place] [id number] [place] [address] Sep, Osteoarthritis, unspecified osteoarthritis type, unspecified site M19.90 [place] [address] [place] [id number] [place] [address] August, Osteoarthritis, unspecified osteoarthritis type, unspecified site M19.90 [place] [address] [place] [id number] [place] [address] August, Osteoarthritis, unspecified osteoarthritis type, unspecified site M19.90 [place] [address] [place] [id number] [place] [address] Jul, Osteoarthritis, unspecified osteoarthritis type, unspecified site M19.90 and Gastroesophageal reflux disease without esophagitis K21.9 [place] [address] [place] [id number] [place] [address] Jul, Osteoarthritis, unspecified osteoarthritis type, unspecified site M19.90 [facility] [address] [place] [id number] [place] [address] Jun, Ventral hernia without obstruction or gangrene K43.9 [facility] [address] [id number] [place] [address] Jun, Osteoarthritis, unspecified osteoarthritis type, unspecified site M19.90 [facility] [address] [place] [id number] [place] [address] May, [facility] [address] [place] [id number] [place] [address] May, Osteoarthritis, unspecified osteoarthritis type, unspecified site M19.90 [facility] [address] [place] [id number] [place] [address] Apr, Osteoarthritis, unspecified osteoarthritis type, unspecified site M19.90 [place] [address] [place] [id number] [place] [address] Mar, [place] [address] [place] [id number] [place] [address] Mar, Osteoarthritis, unspecified osteoarthritis type, unspecified site M19.90 and Lumbago with sciatica, left side M54.42 [facility] [id number] [place] [address] Feb, [facility] [address] [place] [id number] [place] [address] Feb, [facility] [id number] [place] [address] Feb, Osteoarthritis, unspecified osteoarthritis type, unspecified site M19.90 [facility] [address] [place] [id number] [place] [address] Feb, [facility] [address] [place] [id number] [place] [address] Feb, Low back pain M54.5 and Other chronic pain G89.29 [facility] [address] [id number] [place] [address] Feb, [facility] [address] [address] Jan, [facility] [address] [place] [id number] [place] [address] Jan, [facility] [address] [address] 24 Dec, 2015 Lumbago with sciatica, left side M54.42 [place] [address] [place] [id number] [place] [address] 15 Dec, 2015 Irritable bowel syndrome with both constipation and diarrhea K58.0 ; Screening, lipid Z13.220 ; Nocturia R35.1 ; Family history of diabetes mellitus Z83.3 and Dysuria R30.0 [place] [address] [place] [id number] [place] [address] 14 Dec, 2015 Irritable bowel syndrome with both constipation and diarrhea K58.0 ; Nocturia R35.1 ; Family history of diabetes mellitus Z83.3 ; Dysuria R30.0 and Screening, lipid Z13.220 [facility] [address] [place] [id number] [place] [address] 12 Dec, 2015 [facility] [address] [place] [id number] [place] [address] Dec, [facility] [id number] [place] [address] Dec, Pain with swallowing R13.10 [facility] [address] [place] [id number] [place] [address] Nov, [facility] [address] [place] [id number] [place] [address] Nov, [facility] [id number] [place] [address] Oct, [place] [address] [address] Sep, [facility] [address] [place] [id number] [place] [address] 07 Sep, 2015 Osteoarthritis, unspecified osteoarthritis type, unspecified site M19.90 [facility] [address] [place] [id number] [place] [address] Sep, Back pain M54.9 [facility] [id number] [place] [address] Sep, Lumbago with sciatica, right side M54.41 and Bilateral impacted cerumen H61.23 [place] [address] [place] [id number] [place] [address] Sep, [facility] [address] [place] [id number] [place] [address] August, Bronchitis J40 [facility] [address] [place] [id number] [place] [address] August, [facility] [address] [place] [id number] [place] [address] August, [facility] [id number] [place] [address] August, [facility] [id number] [place] [address] Jul, [facility] [id number] [place] [address] 05 Jul, 2015 Back pain M54.9 [facility] [id number] [place] [address] Jun, Degenerative disc disease at L5-S1 level M51.36 and Bronchitis J40 [facility] [id number] [place] [address] Jun, [facility] [id number] [place] [address] May, [facility] [address] [address] Apr, [facility] [id number] [place] [address] Mar, [facility] [id number] [place] [address] Mar, [facility] [id number] [place] [address] Feb, [facility] [id number] [place] [address] Jan, [facility] [id number] [place] [address] Dec, [facility] [id number] [place] [address] Nov, [facility] [id number] [place] [address] Oct, [facility] [id number] [place] [address] Oct, Right shoulder pain 719.41 [facility] [id number] [place] [address] Sep, [facility] [id number] [place] [address] Sep, Vertigo 780.4 and Elbow fracture, right 812.40 [facility] [address] [id number] [place] [address] Sep, [facility] [id number] [place] [address] August, [facility] [id number] [place] [address] Jul, [facility] [address] [id number] [place] [address] [place] [address] 13 Jul, 2014 [facility] [place] [facility] [address] [id number] [place] [address] Jun, [facility] [place] [facility] [address] [id number] [place] [address] Jun, [facility] [place] [facility] [address] [id number] [place] [address] Jun, [facility] [place] [facility] [address] [id number] [place] [address] Jun, [facility] [place] [facility] [address] [id number] [place] [address] Jun, [facility] [place] [facility] [address] [id number] [place] [address] Jun, [facility] [place] [facility] [id number] [address] May, [facility] [place] [facility] [address] [id number] [place] [address] May, [facility] [place] [facility] [id number] [place] [address] May, [facility] [place] [facility] [address] [facility] [id number] [place] [address] May, [facility] [place] [facility] [address] [place] [address] May, [facility] [place] [facility] [address] [facility] [id number] [place] [address] May, [facility] [place] [facility] [address] [facility] [id number] [place] [address] Apr, [facility] [place] [facility] [address] [facility] [id number] [place] [address] Apr, [facility] [place] [facility] [address] [facility] [id number] [place] [address] Apr, [facility] [place] [facility] [address] [id number] [place] [address] Apr, [facility] [place] [facility] [address] [id number] [place] [address] Apr, [facility] [place] [facility] [address] [id number] [place] [address] Apr, [facility] [place] [facility] [address] [id number] [place] [address] Apr, [facility] [place] [facility] [address] [id number] [place] [address] Mar, [facility] [place] [facility] [address] [id number] [place] [address] Mar, [facility] [place] [facility] [address] [id number] [place] [address] Mar, [facility] [place] [facility] [address] [id number] [place] [address] Mar, [facility] [place] [facility] [address] [id number] [place] [address] Mar, [facility] [place] [facility] [address] [id number] [place] [address] Mar, [facility] [place] [facility] [address] [id number] [place] [address] Mar, [facility] [place] [facility] [address] [id number] [place] [address] Mar, [facility] [place] [facility] [address] [id number] [place] [address] Mar, [facility] [place] [facility] [address] [id number] [place] [address] Mar, [facility] [place] [facility] [address] [id number] [place] [address] Mar, [facility] [place] [facility] [address] [id number] [address] Mar, [facility] [place] [facility] [address] [id number] [place] [address] Mar, [facility] [place] [facility] [address] [id number] [place] [address] Mar, [facility] [place] [facility] [address] [facility] [id number] [place] [address] Mar, [facility] [place] [facility] [address] [id number] [place] [address] Feb, [facility] [place] [facility] [address] [id number] [place] [address] Feb, [facility] [place] [facility] [address] [id number] [place] [address] Feb, [facility] [place] [facility] [address] [facility] [id number] [place] [address] Feb, [facility] [place] [facility] [address] [facility] [id number] [place] [address] Feb, [facility] [place] [facility] [address] [facility] [id number] [place] [address] Feb, [facility] [place] [facility] [address] [facility] [id number] [place] [address] Jan, [facility] [place] [facility] [address] [facility] [id number], [place] [address] Jan, [facility] [place] [facility] [address] [facility] [id number], [place] [address] Jan, [facility] [place] [facility] [address] [id number] [place] [address] Jan, [facility] [place] [facility] [address] [facility] [id number], [place] [address] Jan, [facility] [place] [facility] [address] [facility] [id number], [place] [address] Jan, [facility] [place] [facility] [address] [id number] [place] [address] 29 Dec, 2013 [facility] [place] [facility] [address] [id number] [place] [address] 29 Dec, 2013 [facility] [place] [facility] [address] [id number] [place] [address] 26 Dec, 2013 [facility] [place] [facility] [address] [id number] [place] [address] 11 Dec, 2013 [facility] [place] [facility] [address] [id number] [place] [address] 11 Dec, 2013 [facility] [place] [facility] [address] [id number] [place] [address] 08 Dec, 2013 [facility] [place] [facility] [address] [id number] [place] [address] 08 Dec, 2013 [facility] [place] [facility] [address] [id number] [place] [address] 08 Dec, 2013 [facility] [place] [facility] [address] [id number] [place] [address] 08 Dec, 2013 [facility] [place] [facility] [address] [id number] [place] [address] 04 Dec, 2013 [facility] [place] [facility] [address] [id number] [place] [address] Dec, 2013 [facility] [place] [facility] [address] [id number] [place] [address] Nov, [facility] [place] [facility] [address] [id number] [place] [address] Nov, [facility] [place] [facility] [address] [id number] [place] [address] Nov, [facility] [place] [facility] [address] [id number] [place] [address] Nov, [facility] [place] [facility] [address] [id number] [place] [address] Nov, [facility] [place] [facility] [address] [id number] [place] [address] Nov, [facility] [place] [facility] [address] [id number] [place] [address] Nov, [facility] [place] [facility] [address] [id number] [place] [address] Nov, [facility] [place] [facility] [address] [id number] [place] [address] Nov, [facility] [place] [facility] [address] [id number] [place] [address] Nov, [facility] [place] [facility] [address] [id number] [place] [address] Oct, [facility] [place] [facility] [address] [id number] [place] [address] Oct, [facility] [place] [facility] [address] [id number] [place] [address] Oct, [facility] [place] [facility] [address] [id number] [place] [address] Oct, [facility] [place] [facility] [address] [id number] [place] [address] Oct, [facility] [place] [facility] [address] [id number] [place] [address] Oct, [facility] [place] [facility] [address] [id number] [place] [address] Oct, [facility] [place] [facility] [address] [id number] [place] [address] Oct, [facility] [place] [facility] [address] [id number] [place] [address] Oct, [facility] [place] [facility] [address] [id number] [place] [address] Oct, [facility] [place] [facility] [address] [id number] [place] [address] Oct, [facility] [place] [facility] [address] [id number] [place] [address] Oct, [facility] [place] [facility] [address] [id number] [place] [address] Oct, [facility] [place] [facility] [address] [id number] [place] [address] Sep, [facility] [place] [facility] [address] [id number] [place] [address] Sep, [facility] [place] [facility] [address] [id number] [place] [address] Sep, [facility] [place] [facility] [address] [id number] [place] [address] Sep, [facility] [place] [facility] [address] [id number] [place] [address] August, [facility] [place] [facility] [address] [id number] [place] [address] August, [facility] [place] [facility] [address] [id number] [place] [address] August, [facility] [place] [facility] [address] [id number] [place] [address] August, [facility] [place] [facility] [address] [id number] [place] [address] August, [facility] [place] [facility] [address] [id number] [place] [address] August, [facility] [place] [facility] [address] [id number] [place] [address] August, [facility] [place] [facility] [address] [id number] [place] [address] August, [facility] [place] [facility] [address] [id number] [place] [address] Jul, [facility] [place] [facility] [address] [id number] [place] [address] Jul, [facility] [place] [facility] [address] [id number] [place] [address] Jun, [facility] [place] [facility] [address] [id number] [place] [address] Jun, [facility] [place] [facility] [address] [id number] [place] [address] Jun, [facility] [place] [facility] [address] [id number] [place] [address] Jun, [facility] [place] [facility] [address] [id number] [place] [address] Jun, [facility] [place] [facility] [address] [id number] [place] [address] Jun, [facility] [place] [facility] [address] [id number] [place] [address] May, [facility] [place] [facility] [address] [id number] [place] [address] May, [facility] [place] [facility] [address] [id number] [place] [address] May, [facility] [place] [facility] [address] [id number] [place] [address] May, [facility] [place] [facility] [address] [id number] [place] [address] May, [facility] [place] [facility] [address] [id number] [place] [address] May, [facility] [place] [facility] [address] [id number] [place] [address] Apr, [facility] [place] [facility] [address] [id number] [place] [address] Apr, [facility] [place] [facility] [address] [id number], [place] [address] 15 Feb, 2013 [facility] [place] [facility] [address] [id number] [place] [address] 15 Feb, 2013 [facility] [place] [facility] [address] [id number], [place] [address] 15 Feb, 2013 [facility] [place] [facility] [address] [id number] [place] [address] 15 Feb, 2013 [facility] [place] [facility] [address] [id number], [place] [address] 13 Feb, 2013 [facility] [place] [facility] [address] [id number] [place] [address] 13 Feb, 2013 [facility] [place] [facility] [address] [id number], [place] [address] Feb, [facility] [place] [facility] [address] [id number], [place] [address] Feb, [facility] [place] [facility] [address] [id number], [place] [address] 08 Feb, 2013 [facility] [place] [facility] [address] [id number], [place] [address] Jan, [facility] [place] [facility] [address] [id number], [place] [address] Jan, [facility] [place] [facility] [address] [id number], [place] [address] 10 Jan, 2013 [facility] [place] [facility] [address] [id number], [place] [address] 06 Jan, 2013 [facility] [place] [facility] [address] [id number], [place] [address] 04 Jan, 2013 [facility] [place] [facility] [address] [id number], [place] [address] 02 Jan, 2013 [facility] [place] [facility] [address] [id number], [place] [address] 17 Dec, 2012 [facility] [place] [facility] [address] [id number] [place] [address] 12 Dec, 2012 [facility] [address] [id number] [place] [address] 05 Dec, 2012 [facility] [place] [facility] [address] [id number] [place] [address] 05 Dec, 2012 [facility] [place] [facility] [address] [id number] [place] [address] Oct, [facility] [place] [facility] [address] [id number] [place] [address] Oct, [facility] [place] [facility] [address] [id number] [place] [address] Oct, [facility] [address] [id number] [place] [address] Oct, [facility] [address] [id number] [place] [address] Oct, [facility] [address] [id number] [place] [address] Sep, [facility] [address] [id number] [place] [address] August, [facility] [address] [id number] [place] [address] August, [facility] [address] [id number] [place] [address] August, [facility] [address] [id number] [place] [address] August, [facility] [place] [facility] [address] [id number] [place] [address] August, [facility] [place] [facility] [address] [id number] [place] [address] August, [facility] [place] [facility] [address] [id number] [place] [address] August, [facility] [address] [id number] [place] [address] August, [facility] [address] [id number] [place] [address] August, [facility] [address] [id number] [place] [address] August, [facility] [address] [id number] [place] [address] August, [facility] [address] [id number] [place] [address] August, [facility] [address] [id number] [place] [address] Jun, [facility] [address] [id number] [place] [address] Jun, [facility] [place] [facility] [address] [id number] [place] [address] Jun, [facility] [address] [id number] [place] [address] May, [facility] [place] [facility] [address] [id number] [place] [address] May, [facility] [address] [id number] [place] [address] Mar, [facility] [place] [facility] [address] [id number] [place] [address] Mar, [facility] [place] [facility] [address] [id number] [place] [address] Feb, [facility] [place] [facility] [address] [id number] [place] [address] Feb, [facility] [place] [facility] [address] [id number] [place] [address] Feb, [facility] [place] [facility] [address] [id number] [place] [address] 13 Feb, [address] [facility] [address] [id number] [place] [address] 25 Dec, 2011 [facility] [address] [id number] [place] [address] August, [facility] [address] [id number] [place] [address] Jul, [facility] [address] [id number] [place] [address] Jul, [facility] [address] [id number] [place] [address] Jun, [facility] [address] [id number] [place] [address] Jun, [facility] [address] [id number] [place] [address] Jun, [facility] [address] [id number] [place] [address] Jun, [facility] [address] [id number] [place] [address] Jun, [facility] [address] [id number] [place] [address] May, [facility] [address] [id number] [place] [address] May, [facility] [address] [id number] [place] [address] 14 May, 2011 [facility] [place] [facility] [address] [id number] [place] [address] May, [facility] [address] [id number] [place] [address] Apr, [facility] [address] [id number] [place] [address] Apr, [facility] [address] [id number], [place] [address] Apr, [facility] [id number], [place] [address] Mar, [facility] [id number], [place] [address] Mar, [facility] [id number], [place] [address] Mar, [facility] [id number], [place] [address] Mar, [facility] [id number] [place] [address] May, [facility] [id number], [place] [address] Feb, [facility] [id number], [place] [address] Feb, [facility] [id number], [place] [address] Jan, [facility] [id number], [place] [address] Jan, IMMUNIZATIONS No Known Immunizations SOCIAL HISTORY Never Assessed REASON FOR VISIT Requests return call PLAN OF CARE VITAL SIGNS MEDICATIONS Unknown [...]
--- OUTSIDE RECORDS SUMMARY | 2018-09-19 01:20 | XMS REPORT ---
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 Active 885225588 Problem Benign prostatic hyperplasia, unspecified whether lower urinary tract symptoms present N40.0 Active 509625598 Problem Screening, lipid Z13.220 Active 182533648 Problem Shortness of breath R06.02 Active 329687831 Problem 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 Active 650510551 Problem Osteoarthritis, unspecified osteoarthritis type, unspecified site M19.90 Active 490777109 Problem Other chronic pain G89.29 Active 87093703 Problem Gastroesophageal reflux disease without esophagitis K21.9 Active 163190803 ALLERGIES Substance Reaction Event Type Date Status Remeron Unknown Drug Allergy May, Active Bentyl 20 Mg Tablet Unknown Non Drug Allergy May, Active Ranitidine Hcl 150 Mg Tablet Unknown Non Drug Allergy May, Active ENCOUNTERS Encounter Location Date Diagnosis [place] [address] [facility] [id number] [address] May, [place] [address] [place] [id number] [address] May, Osteopenia determined by x-ray M85.80 ; Shortness of breath R06.02 and Screening, lipid Z13.220 [place] [address] [id number] [address] May, [place] [address] [address] Apr, Osteoarthritis, unspecified osteoarthritis type, unspecified site M19.90 [facility] [address] [address] Apr, Other chcf (current) drug therapy Z79.899 [place] [id number] [place] [address] Apr, [facility] [id number] [place] [address] Apr, Osteoarthritis, unspecified osteoarthritis type, unspecified site M19.90 [place] [id number] [place] [address] Mar, [place] [id number] [place] [address] Mar, Encounter for Medicare annual wellness exam Z00.00 ; Osteoarthritis, unspecified osteoarthritis type, unspecified site M19.90 ; Benign prostatic hyperplasia, unspecified whether lower urinary tract symptoms present N40.0 ; 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 and At high risk for osteoporosis Z91.89 [place] [address] [address] Mar, Osteoarthritis, unspecified osteoarthritis type, unspecified site M19.90 [place] [address] [address] Feb, [facility] [address] [address] Feb, Osteoarthritis, unspecified osteoarthritis type, unspecified site M19.90 [place] [address] [address] Jan, [facility] [address] [address] Jan, Osteoarthritis, unspecified osteoarthritis type, unspecified site M19.90 [facility] [id number] [address] Jan, Low back pain M54.5 and Other chronic pain G89.29 [facility] [id number] [place] [address] Dec, Osteoarthritis, unspecified osteoarthritis type, unspecified site M19.90 [facility] [id number] [place] [address] Dec, [facility] [id number] [place] [address] Nov, Osteoarthritis, unspecified osteoarthritis type, unspecified site M19.90 [facility] [id number] [place] [address] Nov, Shortness of breath R06.02 [facility] [id number] [place] [address] Nov, [facility] [id number] [place] [address] Nov, [facility] [id number] [place] [address] Oct, Osteoarthritis, unspecified osteoarthritis type, unspecified site M19.90 [facility] [address] [address] Sep, [facility] [id number] [place] [address] Sep, Osteoarthritis, unspecified osteoarthritis type, unspecified site M19.90 [facility] [address] [address] August, Other chronic pain G89.29 and Other specified personal risk factors, not elsewhere classified Z91.89 [facility] [address] [address] August, Osteoarthritis, unspecified osteoarthritis type, unspecified site M19.90 [facility] [address] [address] Jul, Osteoarthritis, unspecified osteoarthritis type, unspecified site M19.90 [place] [address] [address] [id number] [place] [address] Jun, Osteoarthritis, unspecified osteoarthritis type, unspecified site M19.90 [place] [address] [place] [address] Jun, [place] [address] [address] [id number] [place] [address] Jun, Osteoarthritis, unspecified osteoarthritis type, unspecified site M19.90 [place] [address] [address] [id number] [place] [address] May, [place] [address] [address] [id number] [place] [address] May, Benign prostatic hyperplasia, unspecified whether lower urinary tract symptoms present N40.0 [place] [address] [place] [address] May, Osteoarthritis, unspecified osteoarthritis type, unspecified site M19.90 [place] [address] [address] May, [place] [address] [address] Apr, Other chronic pain G89.29 ; Family history of diabetes mellitus Z83.3 ; Forgetfulness R68.89 ; History of multiple concussions Z87.820 ; Gastroesophageal reflux disease without esophagitis K21.9 and Screening, lipid Z13.220 [place] [address] [place] [address] Apr, Other chronic pain G89.29 ; Forgetfulness R68.89 ; History of multiple concussions Z87.820 ; Gastroesophageal reflux disease without esophagitis K21.9 ; Screening, lipid Z13.220 and Family history of diabetes mellitus Z83.3 [place] [address] [address] Apr, Osteoarthritis, unspecified osteoarthritis type, unspecified site M19.90 [facility] [id number] [address] Apr, Osteoarthritis, unspecified osteoarthritis type, unspecified site M19.90 [facility] [id number] [address] Apr, [facility] [id number] [place] [address] Mar, Osteoarthritis, unspecified osteoarthritis type, unspecified site M19.90 [place] [address] [address] [id number] [place] [address] Feb, Osteoarthritis, unspecified osteoarthritis type, unspecified site M19.90 [place] [address] [address] [id number] [address] Jan, Osteoarthritis, unspecified osteoarthritis type, unspecified site M19.90 [place] [address] [address] Dec, Osteoarthritis, unspecified osteoarthritis type, unspecified site M19.90 [facility] [address] [address] Dec, [place] [address] [address] Nov, Encounter for screening for lipid disorder Z13.220 [place] [address] [address] Nov, Osteoarthritis, unspecified osteoarthritis type, unspecified site M19.90 ; Encounter for screening for lipid disorder Z13.220 and Other chronic pain G89.29 [facility] [address] [address] Nov, Osteoarthritis, unspecified osteoarthritis type, unspecified site M19.90 [facility] [id number] [address] Nov, [facility] [id number] [place] [address] Nov, [facility] [id number] [place] [address] Oct, Osteoarthritis, unspecified osteoarthritis type, unspecified site M19.90 [facility] [address] [address] [id number] [place] [address] Oct, Gastroesophageal reflux disease without esophagitis K21.9 [facility] [address] [id number] [place] [address] Sep, Osteoarthritis, unspecified osteoarthritis type, unspecified site M19.90 [place] [address] [place] [address] [id number] [place] [address] August, Osteoarthritis, unspecified osteoarthritis type, unspecified site M19.90 [place] [address] [address] [id number] [place] [address] August, Osteoarthritis, unspecified osteoarthritis type, unspecified site M19.90 [place] [address] [address] [id number] [place] [address] Jul, Osteoarthritis, unspecified osteoarthritis type, unspecified site M19.90 and Gastroesophageal reflux disease without esophagitis K21.9 [place] [address] [place] [address] Jul, Osteoarthritis, unspecified osteoarthritis type, unspecified site M19.90 [place] [address] [place] [address] Jun, Ventral hernia without obstruction or gangrene K43.9 [facility] [id number] [place] [address] Jun, Osteoarthritis, unspecified osteoarthritis type, unspecified site M19.90 [facility] [id number] [place] [address] May, [facility] [address] [address] May, Osteoarthritis, unspecified osteoarthritis type, unspecified site M19.90 [facility] [address] [address] Apr, Osteoarthritis, unspecified osteoarthritis type, unspecified site M19.90 [facility] [id number] [place] [address] Mar, [facility] [id number] [place] [address] Mar, Osteoarthritis, unspecified osteoarthritis type, unspecified site M19.90 and Lumbago with sciatica, left side M54.42 [facility] [id number] [place] [address] Feb, [facility] [id number] [place] [address] Feb, [facility] [id number] [place] [address] Feb, Osteoarthritis, unspecified osteoarthritis type, unspecified site M19.90 [facility] [id number] [place] [address] Feb, [facility] [id number] [place] [address] Feb, Low back pain M54.5 and Other chronic pain G89.29 [facility] [id number] [place] [address] Feb, [facility] [id number] [place] [address] Jan, [facility] [id number] [place] [address] Jan, [facility] [id number] [place] [address] 24 Dec, 2015 Lumbago with sciatica, left side M54.42 [facility] [id number] [place] [address] 15 Dec, 2015 Irritable bowel syndrome with both constipation and diarrhea K58.0 ; Screening, lipid Z13.220 ; Nocturia R35.1 ; Family history of diabetes mellitus Z83.3 and Dysuria R30.0 [facility] [id number] [place] [address] 14 Dec, 2015 Irritable bowel syndrome with both constipation and diarrhea K58.0 ; Nocturia R35.1 ; Family history of diabetes mellitus Z83.3 ; Dysuria R30.0 and Screening, lipid Z13.220 [place] [address] [address] [id number] [place] [address] 12 Dec, 2015 [place] [address] [address] [id number] [place] [address] Dec, [facility] [id number] [place] [address] Dec, Pain with swallowing R13.10 [facility] [id number] [place] [address] Nov, [facility] [id number] [place] [address] Nov, [facility] [id number] [place] [address] Oct, [facility] [id number] [place] [address] Sep, [facility] [id number] [place] [address] Sep, Osteoarthritis, unspecified osteoarthritis type, unspecified site M19.90 [facility] [id number] [place] [address] Sep, Back pain M54.9 [place] [address] [address] Sep, Lumbago with sciatica, right side M54.41 and Bilateral impacted cerumen H61.23 [facility] [address] [address] Sep, [facility] [id number] [place] [address] August, Bronchitis J40 [facility] [id number] [place] [address] August, [facility] [id number] [place] [address] August, [facility] [id number] [place] [address] August, [facility] [id number] [place] [address] Jul, [facility] [id number] [place] [address] Jul, Back pain M54.9 [facility] [id number] [place] [address] Jun, Degenerative disc disease at L5-S1 level M51.36 and Bronchitis J40 [facility] [address] [address] Jun, [facility] [address] [address] May, [facility] [address] [address] Apr, [facility] [address] [address] Mar, [facility] [address] [address] Mar, [facility] [id number] [address] Feb, [facility] [address] [address] Jan, [facility] [address] [facility] [id number] [address] Dec, [facility] [id number] [place] [address] Nov, [facility] [id number] [place] [address] Oct, [facility] [id number] [place] [address] Oct, Right shoulder pain 719.41 [facility] [id number] [address] Sep, [facility] [id number] [place] [address] Sep, Vertigo 780.4 and Elbow fracture, right 812.40 [facility] [address] [address] Sep, [facility] [id number] [address] August, [facility] [address] [address] Jul, [facility] [address] [address] Jul, [facility] [address] [address] Jun, [facility] [address] [address] Jun, [facility] [address] [address] Jun, [facility] [id number] [address] Jun, [facility] [place] [facility] [address] [id number] [place] [address] Jun, [facility] [place] [facility] [address] [id number] [place] [address] Jun, [facility] [place] [facility] [address] [id number] [place] [address] May, [facility] [place] [facility] [address] [id number] [place] [address] May, [facility] [place] [facility] [address] [id number] [place] [address] May, [facility] [place] [facility] [address] [id number] [place] [address] May, [facility] [place] [facility] [address] [id number] [place] [address] May, [facility] [place] [facility] [address] [id number] [place] [address] May, [facility] [place] [facility] [address] [facility] [id number] [place] [address] Apr, [facility] [place] [facility] [address] [id number] [place] [address] Apr, [facility] [place] [facility] [address] [id number] [place] [address] Apr, [facility] [place] [facility] [address] [id number] [place] [address] Apr, [facility] [place] [facility] [address] [id number] [place] [address] Apr, [facility] [place] [facility] [address] [id number] [place] [address] Apr, [facility] [place] [facility] [address] [id number] [place] [address] Apr, [facility] [place] [facility] [address] [id number] [place] [address] Mar, [facility] [place] [facility] [address] [id number] [place] [address] Mar, [facility] [place] [facility] [address] [id number] [place] [address] Mar, [facility] [place] [facility] [address] [id number] [place] [address] Mar, [facility] [place] [facility] [address] [id number] [place] [address] Mar, [facility] [place] [facility] [address] [id number] [place] [address] Mar, [facility] [place] [facility] [address] [id number] [place] [address] Mar, [facility] [place] [facility] [address] [id number] [place] [address] Mar, [facility] [place] [facility] [address] [id number] [place] [address] Mar, [facility] [place] [facility] [address] [id number] [place] [address] Mar, [facility] [place] [facility] [address] [id number] [place] [address] Mar, [facility] [place] [facility] [address] [id number] [place] [address] Mar, [facility] [place] [facility] [address] [id number] [place] [address] Mar, [facility] [place] [facility] [address] [id number] [place] [address] Mar, [facility] [place] [facility] [address] [id number] [place] [address] Mar, [facility] [place] [facility] [address] [id number] [place] [address] Feb, [facility] [place] [facility] [address] [id number] [place] [address] Feb, [facility] [place] [facility] [address] [id number] [place] [address] Feb, [facility] [place] [facility] [address] [id number] [place] [address] Feb, [facility] [place] [facility] [address] [id number] [place] [address] Feb, [facility] [place] [facility] [address] [id number] [place] [address] Feb, [facility] [place] [facility] [address] [id number] [place] [address] Jan, [facility] [place] [facility] [address] [id number] [place] [address] Jan, [facility] [place] [facility] [address] [id number] [place] [address] Jan, [facility] [place] [facility] [address] [id number] [place] [address] Jan, [facility] [place] [facility] [address] [id number] [place] [address] Jan, [facility] [place] [facility] [address] [id number] [place] [address] Jan, [facility] [place] [facility] [address] [id number] [place] [address] 29 Dec, 2013 [facility] [place] [facility] [address] [id number] [place] [address] 29 Dec, 2013 [facility] [place] [facility] [address] [id number] [place] [address] 26 Dec, 2013 [facility] [place] [facility] [address] [id number] [place] [address] 11 Dec, 2013 [facility] [place] [facility] [address] [id number] [place] [address] 11 Dec, 2013 [facility] [place] [facility] [address] [id number] [place] [address] Dec, 2013 [facility] [place] [facility] [address] [id number] [place] [address] Dec, 2013 [facility] [place] [facility] [address] [id number] [place] [address] Dec, 2013 [facility] [place] [facility] [address] [id number] [place] [address] 08 Dec, 2013 [facility] [place] [facility] [address] [id number] [place] [address] Dec, 2013 [facility] [place] [facility] [address] [id number] [place] [address] Dec, 2013 [facility] [place] [facility] [address] [id number] [place] [address] Nov, [facility] [place] [facility] [address] [id number] [place] [address] Nov, [facility] [place] [facility] [address] [id number] [place] [address] Nov, [facility] [place] [facility] [address] [id number] [place] [address] Nov, [facility] [place] [facility] [address] [id number] [place] [address] Nov, [facility] [place] [facility] [address] [id number] [place] [address] Nov, [facility] [place] [facility] [address] [id number] [place] [address] Nov, [facility] [place] [facility] [address] [id number] [place] [address] Nov, [facility] [place] [facility] [address] [id number] [place] [address] Nov, [facility] [place] [facility] [address] [id number] [place] [address] Nov, [facility] [place] [facility] [address] [id number] [place] [address] Oct, [facility] [place] [facility] [address] [id number] [place] [address] Oct, [facility] [place] [facility] [address] [id number] [place] [address] Oct, [facility] [place] [facility] [address] [id number] [place] [address] Oct, [facility] [place] [facility] [address] [id number] [place] [address] Oct, [facility] [place] [facility] [address] [id number] [place] [address] Oct, [facility] [place] [facility] [address] [id number] [place] [address] Oct, [facility] [place] [facility] [address] [id number] [place] [address] Oct, [facility] [place] [facility] [address] [id number] [place] [address] Oct, [facility] [place] [facility] [address] [id number] [place] [address] Oct, [facility] [place] [facility] [address] [id number] [place] [address] Oct, [facility] [place] [facility] [address] [id number] [place] [address] Oct, [facility] [place] [facility] [address] [id number] [place] [address] Oct, [facility] [place] [facility] [address] [id number] [place] [address] Sep, [facility] [place] [facility] [address] [id number] [place] [address] Sep, [facility] [place] [facility] [address] [id number] [place] [address] Sep, [facility] [place] [facility] [address] [id number] [place] [address] Sep, [facility] [place] [facility] [address] [id number] [place] [address] August, [facility] [place] [facility] [address] [id number] [place] [address] August, [facility] [place] [facility] [address] [id number] [place] [address] August, [facility] [place] [facility] [address] [id number] [place] [address] August, [facility] [place] [facility] [address] [id number] [place] [address] August, [facility] [place] [facility] [address] [id number] [place] [address] August, [facility] [place] [facility] [address] [id number] [place] [address] August, [facility] [place] [facility] [address] [id number] [place] [address] August, [facility] [place] [facility] [address] [id number] [place] [address] Jul, [facility] [place] [facility] [address] [id number] [place] [address] Jul, [facility] [place] [facility] [address] [id number] [place] [address] Jun, [facility] [place] [facility] [address] [id number] [place] [address] Jun, [facility] [place] [facility] [address] [id number] [place] [address] Jun, [facility] [place] [facility] [address] [id number] [place] [address] 13 Jun, 2013 [facility] [place] [facility] [address] [id number] [place] [address] Jun, [facility] [place] [facility] [address] [id number] [place] [address] Jun, [facility] [place] [facility] [address] [id number] [place] [address] May, [facility] [place] [facility] [address] [id number] [place] [address] May, [facility] [place] [facility] [address] [id number] [place] [address] May, [facility] [place] [facility] [address] [id number] [place] [address] May, [facility] [place] [facility] [address] [id number] [place] [address] May, [facility] [place] [facility] [address] [id number] [place] [address] 07 May, 2013 [facility] [place] [facility] [address] [id number] [place] [address] Apr, [facility] [place] [facility] [address] [id number] [place] [address] Apr, [facility] [place] [facility] [address] [id number] [place] [address] Feb, [facility] [place] [facility] [address] [id number] [place] [address] Feb, [facility] [place] [facility] [address] [id number] [place] [address] Feb, [facility] [place] [facility] [address] [id number] [place] [address] Feb, [facility] [place] [facility] [address] [id number] [place] [address] 13 Feb, 2013 [facility] [address] [id number] [place] [address] Feb, [facility] [place] [facility] [address] [id number] [place] [address] Feb, [facility] [place] [facility] [address] [id number] [place] [address] Feb, [facility] [place] [facility] [address] [id number] [place] [address] Feb, [facility] [place] [facility] [address] [id number] [place] [address] Jan, [facility] [place] [facility] [address] [id number] [place] [address] Jan, [facility] [place] [facility] [address] [id number] [place] [address] Jan, [facility] [place] [facility] [address] [id number] [place] [address] Jan, [facility] [place] [facility] [address] [id number] [place] [address] Jan, [facility] [place] [facility] [address] [id number] [place] [address] Jan, [facility] [place] [facility] [address] [id number] [place] [address] 17 Dec, 2012 [facility] [place] [facility] [address] [id number] [place] [address] 12 Dec, 2012 [facility] [place] [facility] [address] [id number] [place] [address] 05 Dec, 2012 [facility] [place] [facility] [address] [id number] [place] [address] 05 Dec, 2012 [facility] [place] [facility] [address] [id number] [place] [address] Oct, [facility] [address] [id number] [place] [address] Oct, [facility] [address] [id number] [place] [address] Oct, [facility] [address] [id number] [place] [address] Oct, [facility] [place] [facility] [address] [id number] [place] [address] Oct, [facility] [address] [id number] [place] [address] Sep, [facility] [address] [id number] [place] [address] August, [facility] [address] [id number] [place] [address] August, [facility] [address] [id number] [place] [address] August, [facility] [address] [id number] [place] [address] August, [facility] [address] [id number] [place] [address] August, [facility] [address] [id number] [place] [address] August, [facility] [place] [facility] [address] [id number] [place] [address] August, [facility] [place] [facility] [address] [id number] [place] [address] August, [facility] [place] [facility] [address] [id number] [place] [address] August, [facility] [place] [facility] [address] [id number] [place] [address] August, [facility] [place] [facility] [address] [id number] [place] [address] August, [facility] [address] [id number] [place] [address] August, [facility] [address] [id number] [place] [address] Jun, [facility] [address] [id number] [place] [address] Jun, [facility] [address] [id number] [place] [address] Jun, [facility] [address] [id number] [place] [address] May, [facility] [address] [id number] [place] [address] May, [facility] [address] [id number] [place] [address] Mar, [facility] [address] [id number] [place] [address] Mar, [facility] [address] [id number] [place] [address] Feb, [facility] [address] [facility] [id number] [place] [address] Feb, [facility] [address] [id number] [place] [address] Feb, [facility] [place] [facility] [address] [id number] [place] [address] Feb, [facility] [place] [facility] [address] [id number] [place] [address] Dec, [facility] [place] [facility] [address] [id number] [place] [address] August, [facility] [address] [facility] [id number] [place] [address] Jul, [facility] [place] [facility] [address] [id number] [place] [address] 05 Jul, 2011 [facility] [place] [facility] [address] [id number] [place] [address] Jun, [facility] [place] [facility] [address] [id number] [place] [address] Jun, [facility] [place] [facility] [address] [id number] [place] [address] Jun, [facility] [place] [facility] [address] [id number] [place] [address] Jun, [facility] [place] [facility] [address] [id number] [place] [address] Jun, [facility] [place] [facility] [address] [id number] [place] [address] May, [facility] [place] [facility] [address] [id number] [place] [address] May, [facility] [place] [facility] [address] [id number] [place] [address] May, [facility] [place] [facility] [address] [facility] [id number] [place] [address] May, [facility] [place] [facility] [address] [facility] [id number] [place] [address] Apr, [facility] [place] [facility] [address] [id number] [place] [address] Apr, [facility] [place] [facility] [address] [id number] [place] [address] Apr, [facility] [place] [facility] [address] [id number] [place] [address] Mar, [facility] [place] [facility] [address] [id number] [place] [address] Mar, [facility] [place] [facility] [address] [id number] [place] [address] Mar, [facility] [address] [facility] [id number] [place] [address] Mar, [facility] [address] [id number] [place] [address] May, [facility] [address] [id number] [place] [address] Feb, [facility] [address] [id number] [place] [address] Feb, [facility] [address] [id number] [place] [address] Jan, [facility] [address] [id number] [place] [address] Jan, IMMUNIZATIONS No Known Immunizations SOCIAL HISTORY Never Assessed REASON FOR VISIT Pain management (chronic) Pt states recently had bone density done --ONEYDA Estes PLAN OF CARE Activity Details Follow Up 3 Months Reason:pain mgmt Pending Test LIPID PANEL Pending Test CMP VITAL SIGNS Height 73 in 2018-06-08 Weight 224.6 lbs 2018-06-08 Temperature 97.9 degrees Fahrenheit 2018-06-08 Heart Rate 68 bpm 2018-06-08 Respiratory Rate 16 2018-06-08 Oximetry on room air:93 % 2018-06-08 BMI 29.63 kg/m2 2018-06-08 Blood pressure systolic 106 mmHg 2018-06-08 Blood pressure diastolic 62 mmHg 2018-06-08 MEDICATIONS Medication Instructions Dosage Frequency Start Date End Date Duration Status Rapaflo 8 MG TAKE ONE CAPSULE BY MOUTH ONCE DAILY WITH MEALS 30 Active Xanax 1 MG Orally Twice a day 1 tablet 12h 25 Jun, 2014 28 days Active Cyclobenzaprine HCl 10 MG Orally Three times a day 1 tablet as needed 8h Active Pennsaid 2 % Transdermal twice a day 2 applications to affected area 12h 10 Sep, 2015 Active Oxycodone HCl 10 MG Orally Once a day 1 tablet 24h May, 28 days Active Calcium + D3 600-200 MG-UNIT Orally 2 times a day 1 tablet with a meal 12h Active Test strips Test Strips Glucocard Expression 2 times a day test blood sugar 12h 12 Dec, 2015 Active ProAir HFA 108 (90 Base) MCG/ACT Inhalation every 6 hrs 2 puffs as needed 6h May, Active Vitamin D 1000 UNIT Orally Once a day 1 tablet 24h 30 day(s) Active Esomeprazole Magnesium 40 mg Orally Once a day 1 capsule 24h 08 May, 2017 90 days Active RESULTS No Results PROCEDURES Procedure Date Ordered Result Body Site VENIPUNCT, ROUTINE* Jun 08, 2018 [facility] VISIT ESTABLISHED PATIENT Jun 08, 2018 LAB NOT BILLED BY [facility] Jun 08, 2018 INSTRUCTIONS MEDICATIONS ADMINISTERED No Known Medications MEDICAL [...]
--- OUTSIDE RECORDS SUMMARY | 2018-09-19 01:21 | XMS REPORT ---
Author Author SAMMY ARZATE Organization [facility] [place] [facility] Address [address] [place] [address] Care Team Providers Care Professor Of Management Name Role Phone SAMMY ARZATE Unavailable PROBLEMS Type Condition ICD9-CM Code [id number] Code Onset Dates Condition Status SNOMED Code Problem 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 Active 682149289 Problem Screening, lipid Z13.220 Active 513871060 Problem Shortness of breath R06.02 Active 106372455 Problem Benign prostatic hyperplasia, unspecified whether lower urinary tract symptoms present N40.0 Active 611055116 Problem Osteoarthritis, unspecified osteoarthritis type, unspecified site M19.90 Active 585765137 Problem 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 Active 457160158 Problem Gastroesophageal reflux disease without esophagitis K21.9 Active 868322173 Problem Other chronic pain G89.29 Active 04984074 ALLERGIES No Information ENCOUNTERS Encounter Location Date Diagnosis [place] [id number] [place] [address] Mar, Encounter for Medicare annual wellness exam Z00.00 ; Osteoarthritis, unspecified osteoarthritis type, unspecified site M19.90 ; Benign prostatic hyperplasia, unspecified whether lower urinary tract symptoms present N40.0 ; 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 and At high risk for osteoporosis Z91.89 [facility] [facility] [id number] [address] Mar, Osteoarthritis, unspecified osteoarthritis type, unspecified site M19.90 [facility] [place] [facility] [id number] [place] [address] Feb, [facility] [place] [facility] [id number] [address] Feb, Osteoarthritis, unspecified osteoarthritis type, unspecified site M19.90 [facility] [place] [facility] [address] [address] Jan, [facility] [place] [facility] [id number] [place] [address] Jan, Osteoarthritis, unspecified osteoarthritis type, unspecified site M19.90 [facility] [place] [facility] [id number] [place] [address] Jan, Low back pain M54.5 and Other chronic pain G89.29 [facility] [place] [facility] [id number] [place] [address] Dec, Osteoarthritis, unspecified osteoarthritis type, unspecified site M19.90 [facility] [place] [facility] [id number] [place] [address] Dec, [facility] [place] [facility] [id number] [place] [address] Nov, Osteoarthritis, unspecified osteoarthritis type, unspecified site M19.90 [facility] [place] [facility] [id number] [address] Nov, Shortness of breath R06.02 [facility] [facility] [id number] [address] Nov, [facility] [place] [facility] [id number] [address] Nov, [facility] [place] [facility] [address] [address] Oct, Osteoarthritis, unspecified osteoarthritis type, unspecified site M19.90 [facility] [place] [facility] [address] [address] Sep, [facility] [place] [facility] [id number] [address] Sep, Osteoarthritis, unspecified osteoarthritis type, unspecified site M19.90 [facility] [place] [facility] [id number] [place] [address] August, Other chronic pain G89.29 and Other specified personal risk factors, not elsewhere classified Z91.89 [place] [id number] [place] [address] August, Osteoarthritis, unspecified osteoarthritis type, unspecified site M19.90 [place] [id number] [place] [address] Jul, Osteoarthritis, unspecified osteoarthritis type, unspecified site M19.90 [place] [id number] [place] [address] Jun, Osteoarthritis, unspecified osteoarthritis type, unspecified site M19.90 [place] [id number] [place] [address] Jun, [place] [id number] [place] [address] Jun, Osteoarthritis, unspecified osteoarthritis type, unspecified site M19.90 [place] [id number] [place] [address] May, [place] [id number] [place] [address] May, Benign prostatic hyperplasia, unspecified whether lower urinary tract symptoms present N40.0 [place] [id number] [place] [address] May, Osteoarthritis, unspecified osteoarthritis type, unspecified site M19.90 [place] [id number] [place] [address] May, [place] [id number] [place] [address] Apr, Other chronic pain G89.29 ; Family history of diabetes mellitus Z83.3 ; Forgetfulness R68.89 ; History of multiple concussions Z87.820 ; Gastroesophageal reflux disease without esophagitis K21.9 and Screening, lipid Z13.220 [place] [address] [address] Apr, Other chronic pain G89.29 ; Forgetfulness R68.89 ; History of multiple concussions Z87.820 ; Gastroesophageal reflux disease without esophagitis K21.9 ; Screening, lipid Z13.220 and Family history of diabetes mellitus Z83.3 [place] [id number] [place] [address] Apr, Osteoarthritis, unspecified osteoarthritis type, unspecified site M19.90 [place] [id number] [place] [address] Apr, Osteoarthritis, unspecified osteoarthritis type, unspecified site M19.90 [place] [id number] [place] [address] Apr, [place] [id number] [place] [address] Mar, Osteoarthritis, unspecified osteoarthritis type, unspecified site M19.90 [place] [id number] [place] [address] Feb, Osteoarthritis, unspecified osteoarthritis type, unspecified site M19.90 [place] [id number] [place] [address] Jan, Osteoarthritis, unspecified osteoarthritis type, unspecified site M19.90 [place] [id number] [place] [address] Dec, Osteoarthritis, unspecified osteoarthritis type, unspecified site M19.90 [place] [id number] [place] [address] Dec, [place] [id number] [place] [address] Nov, Encounter for screening for lipid disorder Z13.220 [place] [id number] [place] [address] Nov, Osteoarthritis, unspecified osteoarthritis type, unspecified site M19.90 ; Encounter for screening for lipid disorder Z13.220 and Other chronic pain G89.29 [place] [id number] [place] [address] Nov, Osteoarthritis, unspecified osteoarthritis type, unspecified site M19.90 [place] [id number] [place] [address] Nov, [place] [id number] [place] [address] Nov, [place] [id number] [place] [address] Oct, Osteoarthritis, unspecified osteoarthritis type, unspecified site M19.90 [place] [id number] [place] [address] Oct, Gastroesophageal reflux disease without esophagitis K21.9 [place] [id number] [place] [address] Sep, Osteoarthritis, unspecified osteoarthritis type, unspecified site M19.90 [place] [id number] [place] [address] August, Osteoarthritis, unspecified osteoarthritis type, unspecified site M19.90 [place] [id number] [place] [address] August, Osteoarthritis, unspecified osteoarthritis type, unspecified site M19.90 [place] [id number] [place] [address] Jul, Osteoarthritis, unspecified osteoarthritis type, unspecified site M19.90 and Gastroesophageal reflux disease without esophagitis K21.9 [place] [id number] [place] [address] Jul, Osteoarthritis, unspecified osteoarthritis type, unspecified site M19.90 [place] [id number] [place] [address] Jun, Ventral hernia without obstruction or gangrene K43.9 [facility] [id number] [place] [address] Jun, Osteoarthritis, unspecified osteoarthritis type, unspecified site M19.90 [facility] [id number] [place] [address] May, [facility] [address] [address] May, Osteoarthritis, unspecified osteoarthritis type, unspecified site M19.90 [facility] [id number] [place] [address] Apr, Osteoarthritis, unspecified osteoarthritis type, unspecified site M19.90 [facility] [id number] [place] [address] Mar, [place] [address] [address] Mar, Osteoarthritis, unspecified osteoarthritis type, unspecified site M19.90 and Lumbago with sciatica, left side M54.42 [place] [id number] [place] [address] Feb, [facility] [id number] [place] [address] Feb, [facility] [id number] [place] [address] Feb, Osteoarthritis, unspecified osteoarthritis type, unspecified site M19.90 [facility] [id number] [place] [address] Feb, [facility] [id number] [place] [address] Feb, Low back pain M54.5 and Other chronic pain G89.29 [facility] [id number] [place] [address] Feb, [facility] [id number] [place] [address] Jan, [facility] [id number] [place] [address] Jan, [facility] [id number] [place] [address] 24 Dec, 2015 Lumbago with sciatica, left side M54.42 [facility] [id number] [place] [address] 15 Dec, 2015 Irritable bowel syndrome with both constipation and diarrhea K58.0 ; Screening, lipid Z13.220 ; Nocturia R35.1 ; Family history of diabetes mellitus Z83.3 and Dysuria R30.0 [place] [id number] [place] [address] 14 Dec, 2015 Irritable bowel syndrome with both constipation and diarrhea K58.0 ; Nocturia R35.1 ; Family history of diabetes mellitus Z83.3 ; Dysuria R30.0 and Screening, lipid Z13.220 [facility] [id number] [place] [address] Dec, [facility] [id number] [place] [address] 07 Dec, 2015 [facility] [id number] [place] [address] Dec, Pain with swallowing R13.10 [facility] [id number] [place] [address] Nov, [facility] [id number] [place] [address] Nov, [facility] [id number] [place] [address] Oct, [facility] [id number] [place] [address] Sep, [place] [id number] [place] [address] 07 Sep, 2015 Osteoarthritis, unspecified osteoarthritis type, unspecified site M19.90 [facility] [id number] [place] [address] 07 Sep, 2015 Back pain M54.9 [facility] [id number] [place] [address] 07 Sep, 2015 Lumbago with sciatica, right side M54.41 and Bilateral impacted cerumen H61.23 [facility] [id number] [place] [address] Sep, [facility] [id number] [place] [address] August, Bronchitis J40 [facility] [id number] [place] [address] August, [facility] [id number] [place] [address] August, [facility] [id number] [place] [address] August, [facility] [id number] [place] [address] Jul, [facility] [facility] [id number] [place] [address] Jul, Back pain M54.9 [facility] [id number] [place] [address] Jun, Degenerative disc disease at L5-S1 level M51.36 and Bronchitis J40 [facility] [id number] [place] [address] Jun, [facility] [facility] [id number] [place] [address] May, [facility] [id number] [place] [address] Apr, [facility] [facility] [id number] [place] [address] Mar, [facility] [id number] [place] [address] Mar, [facility] [id number] [place] [address] Feb, [facility] [id number] [place] [address] Jan, [facility] [id number] [place] [address] Dec, [facility] [facility] [id number] [place] [address] Nov, [facility] [facility] [id number] [place] [address] Oct, [facility] [id number] [place] [address] Oct, Right shoulder pain 719.41 [facility] [id number] [place] [address] Sep, [facility] [id number] [place] [address] Sep, Vertigo 780.4 and Elbow fracture, right 812.40 [facility] [facility] [id number] [place] [address] Sep, [facility] [facility] [id number] [place] [address] August, [facility] [facility] [id number] [place] [address] 14 Jul, 2014 [facility] [address] [place] [address] Jul, [facility] [id number] [place] [address] [place] [address] Jun, [facility] [place] [facility] [address] [id number] [place] [address] Jun, [facility] [place] [facility] [address] [id number] [place] [address] Jun, [facility] [place] [facility] [address] [id number] [place] [address] Jun, [facility] [place] [facility] [address] [id number] [place] [address] Jun, [facility] [place] [facility] [address] [id number] [place] [address] Jun, [facility] [place] [facility] [address] [id number] [place] [address] May, [facility] [place] [facility] [address] [id number] [place] [address] May, [facility] [place] [facility] [address] [id number] [place] [address] May, [facility] [place] [facility] [id number] [place] [address] May, [facility] [place] [facility] [address] [facility] [id number] [place] [address] May, [facility] [place] [facility] [address] [facility] [id number] [place] [address] May, [facility] [place] [facility] [address] [id number] [place] [address] Apr, [facility] [place] [facility] [address] [id number] [place] [address] Apr, [facility] [place] [facility] [address] [facility] [id number] [place] [address] Apr, [facility] [place] [facility] [address] [facility] [facility] [id number] [place] [address] Apr, [facility] [place] [facility] [address] [id number] [place] [address] Apr, [facility] [place] [facility] [address] [id number] [place] [address] Apr, [facility] [place] [facility] [address] [id number] [place] [address] Apr, [facility] [place] [facility] [address] [id number] [place] [address] Mar, [facility] [place] [facility] [address] [id number] [place] [address] Mar, [facility] [place] [facility] [address] [id number] [place] [address] Mar, [facility] [place] [facility] [address] [id number] [place] [address] Mar, [facility] [place] [facility] [address] [id number] [place] [address] Mar, [facility] [place] [facility] [address] [id number] [place] [address] Mar, [facility] [place] [facility] [address] [id number] [place] [address] Mar, [facility] [place] [facility] [address] [id number] [place] [address] Mar, [facility] [place] [facility] [address] [id number] [place] [address] Mar, [facility] [place] [facility] [address] [id number] [place] [address] Mar, [facility] [place] [facility] [address] [id number] [place] [address] Mar, [facility] [place] [facility] [address] [id number] [place] [address] Mar, [facility] [place] [facility] [address] [id number] [address] Mar, [facility] [place] [facility] [address] [id number] [place] [address] Mar, [facility] [place] [facility] [address] [id number] [place] [address] Mar, [facility] [place] [facility] [address] [facility] [id number] [place] [address] Feb, [facility] [place] [facility] [address] [id number] [place] [address] Feb, [facility] [place] [facility] [address] [id number] [place] [address] Feb, [facility] [place] [facility] [address] [id number] [place] [address] Feb, [facility] [place] [facility] [address] [facility] [id number] [place] [address] Feb, [facility] [place] [facility] [address] [facility] [id number] [place] [address] Feb, [facility] [place] [facility] [address] [facility] [id number] [place] [address] Jan, [facility] [place] [facility] [address] [facility] [id number] [place] [address] Jan, [facility] [place] [facility] [address] [facility] [id number] [place] [address] Jan, [facility] [place] [facility] [address] [facility] [id number] [place] [address] Jan, [facility] [place] [facility] [address] [id number] [place] [address] Jan, [facility] [place] [facility] [address] [facility] [id number] [place] [address] Jan, [facility] [place] [facility] [address] [facility] [id number] [place] [address] Dec, [facility] [place] [facility] [address] [id number] [place] [address] 29 Dec, 2013 [facility] [place] [facility] [address] [id number] [place] [address] 26 Dec, 2013 [facility] [place] [facility] [address] [id number] [place] [address] 11 Dec, 2013 [facility] [place] [facility] [address] [id number] [place] [address] 11 Dec, 2013 [facility] [place] [facility] [address] [id number] [place] [address] 08 Dec, 2013 [facility] [place] [facility] [address] [id number] [place] [address] 08 Dec, 2013 [facility] [place] [facility] [address] [id number] [place] [address] 08 Dec, 2013 [facility] [place] [facility] [address] [id number] [place] [address] 08 Dec, 2013 [facility] [place] [facility] [address] [id number] [place] [address] Dec, 2013 [facility] [place] [facility] [address] [id number] [place] [address] Dec, 2013 [facility] [place] [facility] [address] [id number] [place] [address] Nov, [facility] [place] [facility] [address] [id number] [place] [address] Nov, [facility] [place] [facility] [address] [id number] [place] [address] Nov, [facility] [place] [facility] [address] [id number] [place] [address] Nov, [facility] [place] [facility] [address] [id number] [place] [address] Nov, [facility] [place] [facility] [address] [id number] [place] [address] Nov, [facility] [place] [facility] [address] [id number] [place] [address] Nov, [facility] [place] [facility] [address] [id number] [place] [address] Nov, [facility] [place] [facility] [address] [id number] [place] [address] Nov, [facility] [place] [facility] [address] [id number] [place] [address] Nov, [facility] [place] [facility] [address] [id number] [place] [address] Oct, [facility] [place] [facility] [address] [id number] [place] [address] Oct, [facility] [place] [facility] [address] [id number] [place] [address] Oct, [facility] [place] [facility] [address] [id number] [place] [address] Oct, [facility] [place] [facility] [address] [id number] [place] [address] Oct, [facility] [place] [facility] [address] [id number] [place] [address] Oct, [facility] [place] [facility] [address] [id number] [place] [address] Oct, [facility] [place] [facility] [address] [id number] [place] [address] Oct, [facility] [place] [facility] [address] [id number] [place] [address] Oct, [facility] [place] [facility] [address] [id number] [place] [address] Oct, [facility] [place] [facility] [address] [id number] [place] [address] Oct, [facility] [place] [facility] [address] [id number] [place] [address] Oct, [facility] [place] [facility] [address] [id number] [place] [address] Oct, [facility] [place] [facility] [address] [id number] [place] [address] Sep, [facility] [place] [facility] [address] [id number] [place] [address] Sep, [facility] [place] [facility] [address] [id number] [place] [address] Sep, [facility] [place] [facility] [address] [id number] [place] [address] Sep, [facility] [place] [facility] [address] [id number] [place] [address] August, [facility] [place] [facility] [address] [id number] [place] [address] August, [facility] [place] [facility] [address] [id number] [place] [address] August, [facility] [place] [facility] [address] [id number] [place] [address] August, [facility] [place] [facility] [address] [id number] [place] [address] August, [facility] [place] [facility] [address] [id number] [place] [address] August, [facility] [place] [facility] [address] [id number] [place] [address] August, [facility] [place] [facility] [address] [id number] [place] [address] August, [facility] [place] [facility] [address] [id number] [place] [address] Jul, [facility] [place] [facility] [address] [id number] [place] [address] Jul, [facility] [place] [facility] [address] [id number] [place] [address] Jun, [facility] [place] [facility] [address] [id number] [place] [address] Jun, [facility] [place] [facility] [address] [id number] [place] [address] Jun, [facility] [place] [facility] [address] [id number] [place] [address] Jun, [facility] [place] [facility] [address] [id number] [place] [address] Jun, [facility] [place] [facility] [address] [id number] [place] [address] Jun, [facility] [place] [facility] [address] [id number] [place] [address] May, [facility] [place] [facility] [address] [id number] [place] [address] May, [facility] [place] [facility] [address] [id number] [place] [address] May, [facility] [place] [facility] [address] [id number] [place] [address] May, [facility] [place] [facility] [address] [id number] [place] [address] May, [facility] [place] [facility] [address] [id number] [place] [address] May, [facility] [place] [facility] [address] [id number] [place] [address] Apr, [facility] [place] [facility] [address] [id number] [place] [address] Apr, [facility] [place] [facility] [address] [id number] [place] [address] Feb, [facility] [place] [facility] [address] [id number] [address] 15 Feb, 2013 [facility] [place] [facility] [address] [id number] [place] [address] 15 Feb, 2013 [facility] [place] [facility] [address] [id number] [address] 15 Feb, 2013 [facility] [place] [facility] [address] [id number] [place] [address] 13 Feb, 2013 [facility] [place] [facility] [address] [id number] [place] [address] 13 Feb, 2013 [facility] [place] [facility] [address] [id number] [place] [address] Feb, [facility] [place] [facility] [address] [id number] [place] [address] Feb, [facility] [place] [facility] [address] [id number] [place] [address] 08 Feb, 2013 [facility] [place] [facility] [address] [id number] [address] Jan, [facility] [place] [facility] [address] [id number] [place] [address] 27 Jan, 2013 [facility] [place] [facility] [address] [id number] [address] 10 Jan, 2013 [facility] [place] [facility] [address] [id number] [address] 06 Jan, 2013 [facility] [place] [facility] [address] [id number] [place] [address] 04 Jan, 2013 [facility] [place] [facility] [address] [id number] [address] 02 Jan, 2013 [facility] [place] [facility] [address] [id number] [place] [address] 17 Dec, 2012 [facility] [place] [facility] [address] [id number] [place] [address] 12 Dec, 2012 [facility] [place] [facility] [address] [id number] [place] [address] 05 Dec, 2012 [facility] [address] [id number] [place] [address] 05 Dec, 2012 [facility] [place] [facility] [address] [id number] [place] [address] Oct, [facility] [place] [facility] [address] [id number] [place] [address] Oct, [facility] [address] [id number] [place] [address] Oct, [facility] [place] [facility] [address] [id number] [place] [address] Oct, [facility] [address] [id number] [place] [address] Oct, [facility] [address] [id number] [place] [address] Sep, [facility] [address] [id number] [place] [address] August, [facility] [address] [id number] [place] [address] August, [facility] [address] [id number] [place] [address] August, [facility] [address] [id number] [place] [address] August, [facility] [address] [id number] [place] [address] August, [facility] [place] [facility] [address] [id number] [place] [address] August, [facility] [place] [facility] [address] [id number] [place] [address] August, [facility] [place] [facility] [address] [id number] [place] [address] August, [facility] [address] [id number] [place] [address] August, [facility] [address] [id number] [place] [address] August, [facility] [place] [facility] [address] [id number] [place] [address] August, [facility] [place] [facility] [address] [id number] [place] [address] August, [facility] [address] [id number] [place] [address] Jun, [facility] [place] [facility] [address] [id number] [place] [address] Jun, [facility] [address] [id number] [place] [address] Jun, [facility] [place] [facility] [address] [id number] [place] [address] May, [facility] [address] [id number] [place] [address] May, [facility] [place] [facility] [address] [id number] [place] [address] Mar, [facility] [place] [facility] [address] [id number] [place] [address] Mar, [facility] [place] [facility] [address] [id number] [place] [address] Feb, [facility] [place] [facility] [address] [id number] [place] [address] Feb, [facility] [place] [facility] [address] [id number] [place] [address] Feb, [facility] [place] [facility] [address] [id number] [place] [address] Feb, [facility] [place] [facility] [address] [id number] [place] [address] Dec, [facility] [address] [id number] [place] [address] August, [facility] [address] [id number] [place] [address] Jul, [facility] [address] [id number] [place] [address] Jul, [facility] [address] [id number] [place] [address] Jun, [facility] [address] [id number] [place] [address] 13 Jun, 2011 [facility] [address] [id number] [place] [address] Jun, [facility] [address] [id number] [place] [address] Jun, [facility] [address] [id number] [place] [address] Jun, [facility] [address] [id number] [place] [address] May, [facility] [address] [id number] [place] [address] May, [facility] [address] [id number] [place] [address] 14 May, 2011 [facility] [address] [id number] [place] [address] May, [facility] [place] [facility] [address] [id number] [place] [address] Apr, [facility] [address] [id number] [place] [address] Apr, [facility] [address] [id number] [place] [address] Apr, [facility] [place] [facility] [address] [id number] [address] Mar, [facility] [place] [facility] [id number] [address] Mar, [facility] [place] [facility] [address] [id number] [address] Mar, [facility] [place] [facility] [id number] [address] Mar, [facility] [place] [facility] [id number] [address] May, [facility] [place] [facility] [id number] [place] [address] Feb, [facility] [place] [facility] [id number] [address] Feb, [facility] [place] [facility] [id number] [address] Jan, [facility] [place] [facility] [address] [id number] [address] Jan, IMMUNIZATIONS No Known Immunizations SOCIAL HISTORY Never Assessed REASON FOR VISIT Bone Density Order Request PLAN OF CARE VITAL SIGNS MEDICATIONS Unknown [...]
--- OUTSIDE RECORDS SUMMARY | 2018-09-19 01:22 | XMS REPORT ---
Author Author SAMMY ARZATE Organization [facility] Address [address] [place] [address] Care Team Providers Care Manager Camp Name Role Phone SAMMY ARZATE Unavailable PROBLEMS Type Condition ICD9-CM Code QAK61-QL Code Onset Dates Condition Status SNOMED Code Problem 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 Active 844273782 Problem Screening, lipid Z13.220 Active 065247632 Problem Shortness of breath R06.02 Active 790736677 Problem Benign prostatic hyperplasia, unspecified whether lower urinary tract symptoms present N40.0 Active 829484083 Problem Osteoarthritis, unspecified osteoarthritis type, unspecified site M19.90 Active 192975578 Problem 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 Active 728454170 Problem Gastroesophageal reflux disease without esophagitis K21.9 Active 052370077 Problem Other chronic pain G89.29 Active 91086960 ALLERGIES No Information ENCOUNTERS Encounter Location Date Diagnosis [facility] [id number] [place] [address] Mar, Osteoarthritis, unspecified osteoarthritis type, unspecified site M19.90 [facility] [id number] [place] [address] Feb, [facility] [id number] [place] [address] Feb, Osteoarthritis, unspecified osteoarthritis type, unspecified site M19.90 [place] [facility] [id number] [place] [address] Jan, [facility] [id number] [place] [address] Jan, Osteoarthritis, unspecified osteoarthritis type, unspecified site M19.90 [facility] [address] [place] [address] Jan, Low back pain M54.5 and Other chronic pain G89.29 [facility] [id number] [place] [address] Dec, Osteoarthritis, unspecified osteoarthritis type, unspecified site M19.90 [facility] [id number] [place] [address] Dec, [facility] [id number] [place] [address] Nov, Osteoarthritis, unspecified osteoarthritis type, unspecified site M19.90 [facility] [id number] [place] [address] Nov, Shortness of breath R06.02 [facility] [id number] [place] [address] Nov, [facility] [id number] [place] [address] Nov, [facility] [id number] [place] [address] Oct, Osteoarthritis, unspecified osteoarthritis type, unspecified site M19.90 [facility] [id number] [place] [address] Sep, [facility] [id number] [place] [address] Sep, Osteoarthritis, unspecified osteoarthritis type, unspecified site M19.90 [facility] [id number] [place] [address] August, Other chronic pain G89.29 and Other specified personal risk factors, not elsewhere classified Z91.89 [facility] [address] [address] August, Osteoarthritis, unspecified osteoarthritis type, unspecified site M19.90 [facility] [id number] [address] Jul, Osteoarthritis, unspecified osteoarthritis type, unspecified site M19.90 [facility] [id number] [place], [place] [address] Jun, Osteoarthritis, unspecified osteoarthritis type, unspecified site M19.90 [facility] [id number] [place] [address] Jun, [facility] [id number] [place] [address] Jun, Osteoarthritis, unspecified osteoarthritis type, unspecified site M19.90 [facility] [id number] [place] [address] May, [facility] [id number] [place] [address] May, Benign prostatic hyperplasia, unspecified whether lower urinary tract symptoms present N40.0 [facility] [id number] [place] [address] May, Osteoarthritis, unspecified osteoarthritis type, unspecified site M19.90 [facility] [id number] [place] [address] May, [facility] [address] [address] Apr, Other chronic pain G89.29 ; Family history of diabetes mellitus Z83.3 ; Forgetfulness R68.89 ; History of multiple concussions Z87.820 ; Gastroesophageal reflux disease without esophagitis K21.9 and Screening, lipid Z13.220 [facility] [address] [place] [address] Apr, Other chronic pain G89.29 ; Forgetfulness R68.89 ; History of multiple concussions Z87.820 ; Gastroesophageal reflux disease without esophagitis K21.9 ; Screening, lipid Z13.220 and Family history of diabetes mellitus Z83.3 [facility] [id number] [address] Apr, Osteoarthritis, unspecified osteoarthritis type, unspecified site M19.90 [facility] [id number] [place] [address] Apr, Osteoarthritis, unspecified osteoarthritis type, unspecified site M19.90 [facility] [id number] [place] [address] Apr, [facility] [id number] [place] [address] Mar, Osteoarthritis, unspecified osteoarthritis type, unspecified site M19.90 [facility] [id number] [place] [address] Feb, Osteoarthritis, unspecified osteoarthritis type, unspecified site M19.90 [facility] [id number] [place] [address] Jan, Osteoarthritis, unspecified osteoarthritis type, unspecified site M19.90 [facility] [id number] [place] [address] Dec, Osteoarthritis, unspecified osteoarthritis type, unspecified site M19.90 [facility] [id number] [address] Dec, [facility] [id number] [place] [address] Nov, Encounter for screening for lipid disorder Z13.220 [facility] [id number] [place] [address] Nov, Osteoarthritis, unspecified osteoarthritis type, unspecified site M19.90 ; Encounter for screening for lipid disorder Z13.220 and Other chronic pain G89.29 [facility] [address] [place] [address] Nov, Osteoarthritis, unspecified osteoarthritis type, unspecified site M19.90 [facility] [id number] [place] [address] Nov, [facility] [id number] [place] [address] Nov, [facility] [id number] [place] [address] Oct, Osteoarthritis, unspecified osteoarthritis type, unspecified site M19.90 [facility] [id number] [place] [address] Oct, Gastroesophageal reflux disease without esophagitis K21.9 [facility] [address] [place] [address] Sep, Osteoarthritis, unspecified osteoarthritis type, unspecified site M19.90 [facility] [id number] [place] [address] August, Osteoarthritis, unspecified osteoarthritis type, unspecified site M19.90 [facility] [id number] [place] [address] August, Osteoarthritis, unspecified osteoarthritis type, unspecified site M19.90 [facility] [id number] [place] [address] Jul, Osteoarthritis, unspecified osteoarthritis type, unspecified site M19.90 and Gastroesophageal reflux disease without esophagitis K21.9 [facility] [id number] [place] [address] Jul, Osteoarthritis, unspecified osteoarthritis type, unspecified site M19.90 [facility] [address] [place] [address] Jun, Ventral hernia without obstruction or gangrene K43.9 [facility] [id number] [place] [address] Jun, Osteoarthritis, unspecified osteoarthritis type, unspecified site M19.90 [facility] [address] [place] [address] May, [place] [address] [address] May, Osteoarthritis, unspecified osteoarthritis type, unspecified site M19.90 [facility] [id number] [place] [address] Apr, Osteoarthritis, unspecified osteoarthritis type, unspecified site M19.90 [facility] [id number] [place] [address] Mar, [facility] [id number] [place] [address] Mar, Osteoarthritis, unspecified osteoarthritis type, unspecified site M19.90 and Lumbago with sciatica, left side M54.42 [facility] [id number] [place] [address] Feb, [facility] [id number] [place] [address] Feb, [facility] [id number] [place] [address] Feb, Osteoarthritis, unspecified osteoarthritis type, unspecified site M19.90 [facility] [id number] [place] [address] Feb, [facility] [address] [place] [address] Feb, Low back pain M54.5 and Other chronic pain G89.29 [facility] [id number] [place] [address] Feb, [facility] [id number] [place] [address] Jan, [facility] [id number] [place] [address] Jan, [facility] [id number] [place] [address] Dec, Lumbago with sciatica, left side M54.42 [facility] [id number] [place] [address] 15 Dec, 2015 Irritable bowel syndrome with both constipation and diarrhea K58.0 ; Screening, lipid Z13.220 ; Nocturia R35.1 ; Family history of diabetes mellitus Z83.3 and Dysuria R30.0 [facility] [id number] [place] [address] 14 Dec, 2015 Irritable bowel syndrome with both constipation and diarrhea K58.0 ; Nocturia R35.1 ; Family history of diabetes mellitus Z83.3 ; Dysuria R30.0 and Screening, lipid Z13.220 [facility] [id number] [place] [address] 12 Dec, 2015 [facility] [id number] [place] [address] Dec, [facility] [id number] [place] [address] Dec, Pain with swallowing R13.10 [facility] [address] [address] Nov, [facility] [id number] [place] [address] Nov, [facility] [id number] [place] [address] Oct, [facility] [id number] [place] [address] Sep, [facility] [address] [address] Sep, Osteoarthritis, unspecified osteoarthritis type, unspecified site M19.90 [facility] [id number] [place] [address] 07 Sep, 2015 Back pain M54.9 [facility] [address] [place] [address] Sep, Lumbago with sciatica, right side M54.41 and Bilateral impacted cerumen H61.23 [facility] [id number] [place] [address] Sep, [facility] [id number] [place] [address] August, Bronchitis J40 [facility] [id number] [place] [address] August, [facility] [id number] [place] [address] August, [facility] [id number] [place] [address] August, [facility] [id number] [place] [address] Jul, [facility] [id number] [place] [address] Jul, Back pain M54.9 [facility] [id number] [place] [address] Jun, Degenerative disc disease at L5-S1 level M51.36 and Bronchitis J40 [facility] [id number] [place] [address] Jun, [facility] [id number] [place] [address] May, [facility] [id number] [place] [address] Apr, [facility] [id number] [place] [address] Mar, [facility] [id number] [place] [address] Mar, [facility] [id number] [place] [address] Feb, [facility] [address] [address] Jan, [facility] [id number] [place] [address] Dec, [facility] [id number] [place] [address] Nov, [facility] [id number] [place] [address] Oct, [facility] [id number] [place] [address] Oct, Right shoulder pain 719.41 [facility] [id number] [place] [address] Sep, [facility] [id number] [place] [address] Sep, Vertigo 780.4 and Elbow fracture, right 812.40 [facility] [id number] [place] [address] Sep, [facility] [id number] [place] [address] August, [facility] [address] [address] Jul, [facility] [address] [address] Jul, [facility] [address] [address] Jun, [facility] [id number] [address] Jun, [facility] [address] [address] Jun, [facility] [id number] [place] [address] [place] [address] Jun, [facility] [place] [facility] [address] [id number] [place] [address] Jun, [facility] [place] [facility] [address] [id number] [place] [address] Jun, [facility] [place] [facility] [address] [id number] [place] [address] May, [facility] [place] [facility] [address] [id number] [place] [address] May, [facility] [place] [facility] [address] [id number] [place] [address] May, [facility] [place] [facility] [address] [id number] [place] [address] May, [facility] [place] [facility] [address] [id number] [place] [address] May, [facility] [place] [facility] [address] [id number] [place] [address] May, [facility] [place] [facility] [address] [id number] [place] [address] Apr, [facility] [place] [facility] [address] [facility] [id number] [place] [address] Apr, [facility] [place] [facility] [address] [id number] [place] [address] Apr, [facility] [place] [facility] [address] [id number] [place] [address] Apr, [facility] [place] [facility] [address] [id number] [place] [address] Apr, [facility] [place] [facility] [address] [id number] [place] [address] Apr, [facility] [place] [facility] [address] [id number] [place] [address] Apr, [facility] [place] [facility] [address] [id number] [place] [address] Mar, [facility] [place] [facility] [address] [id number] [place] [address] Mar, [facility] [place] [facility] [address] [id number] [place] [address] Mar, [facility] [place] [facility] [address] [id number] [place] [address] Mar, [facility] [place] [facility] [address] [id number] [place] [address] Mar, [facility] [place] [facility] [address] [id number] [place] [address] Mar, [facility] [place] [facility] [address] [id number] [place] [address] Mar, [facility] [place] [facility] [address] [id number] [place] [address] Mar, [facility] [place] [facility] [address] [id number] [place] [address] Mar, [facility] [place] [facility] [address] [id number] [place] [address] Mar, [facility] [place] [facility] [address] [id number] [place] [address] Mar, [facility] [place] [facility] [address] [id number] [address] Mar, [facility] [place] [facility] [address] [id number] [place] [address] Mar, [facility] [place] [facility] [address] [id number] [place] [address] Mar, [facility] [place] [facility] [address] [id number] [place] [address] Mar, [facility] [place] [facility] [address] [id number] [place] [address] Feb, [facility] [place] [facility] [address] [id number] [place] [address] Feb, [facility] [place] [facility] [address] [id number] [place] [address] Feb, [facility] [place] [facility] [address] [facility] [id number] [place] [address] Feb, [facility] [place] [facility] [address] [id number] [place] [address] Feb, [facility] [place] [facility] [address] [id number] [place] [address] Feb, [facility] [place] [facility] [address] [id number] [place] [address] Jan, [facility] [place] [facility] [address] [facility] [id number] [place] [address] Jan, [facility] [place] [facility] [address] [facility] [id number] [place] [address] Jan, [facility] [place] [facility] [address] [facility] [id number] [place] [address] Jan, [facility] [place] [facility] [address] [facility] [id number] [place] [address] Jan, [facility] [place] [facility] [address] [facility] [id number] [place] [address] Jan, [facility] [place] [facility] [address] [id number] [place] [address] 29 Dec, 2013 [facility] [place] [facility] [address] [id number] [place] [address] 29 Dec, 2013 [facility] [place] [facility] [address] [facility] [id number] [place] [address] 26 Dec, 2013 [facility] [place] [facility] [address] [facility] [id number] [place] [address] 11 Dec, 2013 [facility] [place] [facility] [address] [id number] [place] [address] 11 Dec, 2013 [facility] [place] [facility] [address] [id number] [facility] [address] 08 Dec, 2013 [facility] [place] [facility] [address] [id number] [place] [address] 08 Dec, 2013 [facility] [place] [facility] [address] [id number] [place] [address] 08 Dec, 2013 [facility] [place] [facility] [address] [id number] [place] [address] 08 Dec, 2013 [facility] [place] [facility] [address] [id number] [place] [address] Dec, 2013 [facility] [place] [facility] [address] [id number] [place] [address] Dec, 2013 [facility] [place] [facility] [address] [id number] [place] [address] Nov, [facility] [place] [facility] [address] [id number] [place] [address] Nov, [facility] [place] [facility] [address] [id number] [place] [address] Nov, [facility] [place] [facility] [address] [id number] [place] [address] Nov, [facility] [place] [facility] [address] [id number] [place] [address] Nov, [facility] [place] [facility] [address] [id number] [place] [address] Nov, [facility] [place] [facility] [address] [id number] [place] [address] Nov, [facility] [place] [facility] [address] [id number] [place] [address] Nov, [facility] [place] [facility] [address] [id number] [place] [address] Nov, [facility] [place] [facility] [address] [id number] [place] [address] Nov, [facility] [place] [facility] [address] [id number] [place] [address] Oct, [facility] [place] [facility] [address] [id number] [place] [address] Oct, [facility] [place] [facility] [address] [id number] [place] [address] Oct, [facility] [place] [facility] [address] [id number] [place] [address] Oct, [facility] [place] [facility] [address] [id number] [place] [address] Oct, [facility] [place] [facility] [address] [id number] [place] [address] Oct, [facility] [place] [facility] [address] [id number] [place] [address] Oct, [facility] [place] [facility] [address] [id number] [place] [address] Oct, [facility] [place] [facility] [address] [id number] [place] [address] Oct, [facility] [place] [facility] [address] [id number] [place] [address] Oct, [facility] [place] [facility] [address] [id number] [place] [address] Oct, [facility] [place] [facility] [address] [id number] [place] [address] Oct, [facility] [place] [facility] [address] [id number] [place] [address] Oct, [facility] [place] [facility] [address] [id number] [place] [address] Sep, [facility] [place] [facility] [address] [id number] [place] [address] Sep, [facility] [place] [facility] [address] [id number] [place] [address] Sep, [facility] [place] [facility] [address] [id number] [place] [address] Sep, [facility] [place] [facility] [address] [id number] [place] [address] August, [facility] [place] [facility] [address] [id number] [place] [address] August, [facility] [place] [facility] [address] [id number] [place] [address] August, [facility] [place] [facility] [address] [id number] [place] [address] August, [facility] [place] [facility] [address] [id number] [place] [address] August, [facility] [place] [facility] [address] [id number] [place] [address] August, [facility] [place] [facility] [address] [id number] [place] [address] August, [facility] [place] [facility] [address] [id number] [place] [address] August, [facility] [place] [facility] [address] [id number] [place] [address] Jul, [facility] [place] [facility] [address] [id number] [place] [address] Jul, [facility] [place] [facility] [address] [id number] [place] [address] Jun, [facility] [place] [facility] [address] [id number] [place] [address] Jun, [facility] [place] [facility] [address] [id number] [place] [address] Jun, [facility] [place] [facility] [address] [id number] [place] [address] Jun, [facility] [place] [facility] [address] [id number] [place] [address] Jun, [facility] [place] [facility] [address] [id number] [place] [address] Jun, [facility] [place] [facility] [address] [id number] [place] [address] May, [facility] [place] [facility] [address] [id number] [place] [address] May, [facility] [place] [facility] [address] [id number] [place] [address] May, [facility] [place] [facility] [address] [id number] [place] [address] May, [facility] [place] [facility] [address] [id number] [place] [address] May, [facility] [place] [facility] [address] [id number] [place] [address] May, [facility] [place] [facility] [address] [id number] [place] [address] Apr, [facility] [place] [facility] [address] [id number] [place] [address] Apr, [facility] [place] [facility] [address] [id number] [place] [address] Feb, [facility] [place] [facility] [address] [id number] [place] [address] Feb, [facility] [place] [facility] [address] [id number] [place] [address] Feb, [facility] [place] [facility] [address] [id number] [place] [address] 15 Feb, 2013 [facility] [place] [facility] [address] [id number] [place] [address] Feb, [facility] [place] [facility] [address] [id number] [place] [address] 13 Feb, 2013 [facility] [place] [facility] [address] [id number] [place] [address] Feb, [facility] [place] [facility] [address] [id number] [place] [address] Feb, [facility] [place] [facility] [address] [id number] [place] [address] Feb, [facility] [place] [facility] [address] [id number] [place] [address] Jan, [facility] [place] [facility] [address] [id number] [place] [address] Jan, [facility] [place] [facility] [address] [id number] [place] [address] Jan, [facility] [place] [facility] [address] [id number] [place] [address] Jan, [facility] [place] [facility] [address] [id number] [place] [address] Jan, [facility] [place] [facility] [address] [id number] [place] [address] Jan, [facility] [place] [facility] [address] [id number] [place] [address] 17 Dec, 2012 [facility] [place] [facility] [address] [id number] [place] [address] 12 Dec, 2012 [facility] [place] [facility] [address] [id number] [place] [address] 05 Dec, 2012 [facility] [place] [facility] [address] [id number] [place] [address] 05 Dec, 2012 [facility] [place] [facility] [address] [id number] [place] [address] Oct, [facility] [place] [facility] [address] [id number] [place] [address] 08 Oct, 2012 [facility] [address] [id number] [place] [address] Oct, [facility] [address] [id number] [place] [address] Oct, [facility] [address] [id number] [place] [address] Oct, [facility] [address] [id number] [place] [address] Sep, [facility] [address] [id number] [place] [address] August, [facility] [address] [id number] [place] [address] August, [facility] [address] [id number] [place] [address] August, [facility] [address] [id number] [place] [address] August, [facility] [address] [id number] [place] [address] August, [facility] [address] [id number] [place] [address] August, [facility] [address] [id number] [place] [address] August, [facility] [address] [id number] [place] [address] August, [facility] [place] [facility] [address] [id number] [place] [address] August, [facility] [place] [facility] [address] [id number] [place] [address] August, [facility] [place] [facility] [address] [id number] [place] [address] August, [facility] [address] [id number] [place] [address] August, [facility] [place] [facility] [address] [id number] [place] [address] Jun, [facility] [place] [facility] [address] [id number] [place] [address] Jun, [facility] [place] [facility] [address] [id number] [place] [address] Jun, [facility] [place] [facility] [address] [id number] [place] [address] May, [facility] [place] [facility] [address] [id number] [place] [address] May, [facility] [address] [id number] [place] [address] Mar, [facility] [place] [facility] [address] [id number] [place] [address] Mar, [facility] [place] [facility] [address] [id number] [place] [address] Feb, [facility] [place] [facility] [address] [id number] [place] [address] Feb, [facility] [place] [facility] [address] [id number] [place] [address] Feb, [facility] [place] [facility] [address] [id number] [place] [address] Feb, [facility] [place] [facility] [address] [id number] [place] [address] Dec, [facility] [place] [facility] [address] [id number] [place] [address] August, [facility] [place] [facility] [address] [id number] [place] [address] Jul, [facility] [place] [facility] [address] [id number] [place] [address] 05 Jul, 2011 [facility] [address] [id number] [place] [address] 13 Jun, 2011 [facility] [place] [facility] [address] [id number] [place] [address] 13 Jun, 2011 [facility] [address] [id number] [place] [address] 09 Jun, 2011 [facility] [address] [id number] [place] [address] 06 Jun, 2011 [facility] [address] [id number] [place] [address] Jun, [facility] [address] [id number] [place] [address] May, [facility] [address] [id number] [place] [address] May, [facility] [address] [id number] [place] [address] 14 May, 2011 [facility] [address] [facility] [id number] [place] [address] May, [facility] [address] [facility] [id number] [place] [address] Apr, [facility] [address] [id number] [place] [address] Apr, [facility] [address] [id number] [place] [address] Apr, [facility] [place] [facility] [address] [id number] [place] [address] Mar, [facility] [place] [facility] [address] [id number] [place] [address] Mar, [facility] [place] [facility] [address] [id number] [place] [address] Mar, [facility] [address] [facility] [place] [place] [id number] [place] [address] Mar, [facility] [address] [id number] [place] [address] May, [facility] [address] [facility] [place] [id number] [place] [address] Feb, [facility] [address] [id number] [place] [address] Feb, [facility] [address] [facility] [place] [id number] [place] [address] Jan, [facility] [address] [facility] [place] [id number] [place] [address] Jan, IMMUNIZATIONS No Known Immunizations SOCIAL HISTORY Never Assessed REASON FOR VISIT Controlled Med Refill 04/06 PLAN OF CARE VITAL SIGNS MEDICATIONS Medication Instructions Dosage Frequency Start Date End Date Duration Status Oxycodone HCl 10 MG Orally Once a day 1 tablet 24h Mar, 28 days Active Xanax 1 MG Orally Twice a day 1 tablet 12h Jun, 28 days Active RESULTS No Results PROCEDURES No Known procedures [...] Surgical History hiatal hernia Surgical History colostomy Hospitalization History Hospitalization for surgery only Hospitalization History infection, prostate
--- OUTSIDE RECORDS SUMMARY | 2018-09-19 01:23 | XMS REPORT ---
Author Author SAMMY ARZATE Organization [facility] Address [address] [place] [address] Care Team Providers Care Feed Research Aide Name Role Phone SAMMY ARZATE Unavailable PROBLEMS Type Condition ICD9-CM Code [id number] Code Onset Dates Condition Status SNOMED Code Problem 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 Active 008907475 Problem Screening, lipid Z13.220 Active 569435835 Problem Shortness of breath R06.02 Active 297073510 Problem Benign prostatic hyperplasia, unspecified whether lower urinary tract symptoms present N40.0 Active 812145272 Problem Osteoarthritis, unspecified osteoarthritis type, unspecified site M19.90 Active 121215728 Problem 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 Active 217636187 Problem Gastroesophageal reflux disease without esophagitis K21.9 Active 178495330 Problem Other chronic pain G89.29 Active 68144263 ALLERGIES No Information ENCOUNTERS Encounter Location Date Diagnosis [place] [id number] [place] [address] 16 Jan, 2018 [place] [id number] [place] [address] 12 Jan, 2018 Osteoarthritis, unspecified osteoarthritis type, unspecified site M19.90 [facility] [id number] [place] [address] 08 Jan, 2018 Low back pain M54.5 and Other chronic pain G89.29 [facility] [id number] [place] [address] 18 Dec, 2017 Osteoarthritis, unspecified osteoarthritis type, unspecified site M19.90 [place] [id number] [place] [address] 14 Dec, 2017 [place] [address] [place] [address] Nov, Osteoarthritis, unspecified osteoarthritis type, unspecified site M19.90 [facility] [id number] [address] Nov, Shortness of breath R06.02 [facility] [address], [place] [address] Nov, [facility] [id number] [place] [address] Nov, [facility] [id number] [place] [address] Oct, Osteoarthritis, unspecified osteoarthritis type, unspecified site M19.90 [facility] [address], [place] [address] Sep, [facility] [id number] [place] [address] Sep, Osteoarthritis, unspecified osteoarthritis type, unspecified site M19.90 [facility] [id number] [address] August, Other chronic pain G89.29 and Other specified personal risk factors, not elsewhere classified Z91.89 [place] [address], [place] [address] August, Osteoarthritis, unspecified osteoarthritis type, unspecified site M19.90 [facility] [address], [place] [address] Jul, Osteoarthritis, unspecified osteoarthritis type, unspecified site M19.90 [facility] [id number] [address] Jun, Osteoarthritis, unspecified osteoarthritis type, unspecified site M19.90 [facility] [address], [place] [address] Jun, [facility] [id number] [address] Jun, Osteoarthritis, unspecified osteoarthritis type, unspecified site M19.90 [place] [id number] [place] [address] May, [place] [id number] [place] [address] May, Benign prostatic hyperplasia, unspecified whether lower urinary tract symptoms present N40.0 [place] [id number] [place] [address] May, Osteoarthritis, unspecified osteoarthritis type, unspecified site M19.90 [place] [id number] [place] [address] May, [place] [id number] [place] [address] Apr, Other chronic pain G89.29 ; Family history of diabetes mellitus Z83.3 ; Forgetfulness R68.89 ; History of multiple concussions Z87.820 ; Gastroesophageal reflux disease without esophagitis K21.9 and Screening, lipid Z13.220 [place] [id number] [place] [address] Apr, Other chronic pain G89.29 ; Forgetfulness R68.89 ; History of multiple concussions Z87.820 ; Gastroesophageal reflux disease without esophagitis K21.9 ; Screening, lipid Z13.220 and Family history of diabetes mellitus Z83.3 [place] [address], [place] [address] Apr, Osteoarthritis, unspecified osteoarthritis type, unspecified site M19.90 [place] [id number] [place] [address] Apr, Osteoarthritis, unspecified osteoarthritis type, unspecified site M19.90 [place] [id number] [address] Apr, [place] [address] [address] [address] Mar, Osteoarthritis, unspecified osteoarthritis type, unspecified site M19.90 [facility] [id number] [place] [address] Feb, Osteoarthritis, unspecified osteoarthritis type, unspecified site M19.90 [facility] [id number] [address] Jan, Osteoarthritis, unspecified osteoarthritis type, unspecified site M19.90 [facility] [id number] [place] [address] Dec, Osteoarthritis, unspecified osteoarthritis type, unspecified site M19.90 [facility] [id number] [place] [address] Dec, [facility] [id number] [place] [address] Nov, Encounter for screening for lipid disorder Z13.220 [facility] [id number] [place] [address] Nov, Osteoarthritis, unspecified osteoarthritis type, unspecified site M19.90 ; Encounter for screening for lipid disorder Z13.220 and Other chronic pain G89.29 [facility] [address], [place] [address] Nov, Osteoarthritis, unspecified osteoarthritis type, unspecified site M19.90 [facility] [address], [place] [address] Nov, [facility] [id number] [place] [address] Nov, [facility] [id number] [place] [address] Oct, Osteoarthritis, unspecified osteoarthritis type, unspecified site M19.90 [facility] [id number] [place] [address] Oct, Gastroesophageal reflux disease without esophagitis K21.9 [facility] [id number] [place] [address] Sep, Osteoarthritis, unspecified osteoarthritis type, unspecified site M19.90 [facility] [id number] [place] [address] August, Osteoarthritis, unspecified osteoarthritis type, unspecified site M19.90 [facility] [id number] [place] [address] August, Osteoarthritis, unspecified osteoarthritis type, unspecified site M19.90 [facility] [id number] [place] [address] Jul, Osteoarthritis, unspecified osteoarthritis type, unspecified site M19.90 and Gastroesophageal reflux disease without esophagitis K21.9 [facility] [id number] [place] [address] Jul, Osteoarthritis, unspecified osteoarthritis type, unspecified site M19.90 [facility] [id number] [place] [address] Jun, Ventral hernia without obstruction or gangrene K43.9 [facility] [id number] [place] [address] Jun, Osteoarthritis, unspecified osteoarthritis type, unspecified site M19.90 [facility] [id number] [place] [address] May, [facility] [id number] [place] [address] May, Osteoarthritis, unspecified osteoarthritis type, unspecified site M19.90 [facility] [id number] [place] [address] Apr, Osteoarthritis, unspecified osteoarthritis type, unspecified site M19.90 [facility] [id number] [place] [address] Mar, [facility] [address], [place] [address] Mar, Osteoarthritis, unspecified osteoarthritis type, unspecified site M19.90 and Lumbago with sciatica, left side M54.42 [facility] [address], [place] [address] Feb, [facility] [id number] [place] [address] Feb, [facility] [id number] [place] [address] Feb, Osteoarthritis, unspecified osteoarthritis type, unspecified site M19.90 [facility] [id number] [place] [address] Feb, [facility] [id number] [place] [address] Feb, Low back pain M54.5 and Other chronic pain G89.29 [facility] [id number] [place] [address] Feb, [facility] [id number] [place] [address] Jan, [facility] [id number] [place] [address] 05 Jan, 2016 [facility] [address] [place] [address] 24 Dec, 2015 Lumbago with sciatica, left side M54.42 [facility] [id number] [place] [address] 15 Dec, 2015 Irritable bowel syndrome with both constipation and diarrhea K58.0 ; Screening, lipid Z13.220 ; Nocturia R35.1 ; Family history of diabetes mellitus Z83.3 and Dysuria R30.0 [facility] [id number] [place] [address] 14 Dec, 2015 Irritable bowel syndrome with both constipation and diarrhea K58.0 ; Nocturia R35.1 ; Family history of diabetes mellitus Z83.3 ; Dysuria R30.0 and Screening, lipid Z13.220 [facility] [address] [address] 12 Dec, 2015 [facility] [address] [address] 07 Dec, 2015 [facility] [address] [address] Dec, Pain with swallowing R13.10 [place] [address] [address] Nov, [place] [address] [address] Nov, [place] [address] [address] Oct, [place] [address] [address] Sep, [place] [address] [address] Sep, Osteoarthritis, unspecified osteoarthritis type, unspecified site M19.90 [place] [address] [address] Sep, Back pain M54.9 [place] [address] [address] Sep, Lumbago with sciatica, right side M54.41 and Bilateral impacted cerumen H61.23 [place] [address] [address] Sep, [place] [address] [address] August, Bronchitis J40 [place] [address] [address] August, [facility] [address] [place] [address] August, [facility] [id number] [place] [address] August, [facility] [id number] [place] [address] Jul, [facility] [id number] [place] [address] Jul, Back pain M54.9 [facility] [id number] [place] [address] Jun, Degenerative disc disease at L5-S1 level M51.36 and Bronchitis J40 [facility] [id number] [place] [address] Jun, [facility] [id number] [place] [address] May, [facility] [id number] [place] [address] Apr, [facility] [id number] [place] [address] Mar, [facility] [address], [place] [address] Mar, [facility] [id number] [place] [address] Feb, [facility] [address], [place] [address] Jan, [facility] [id number] [place] [address] Dec, [facility] [address], [place] [address] Nov, [facility] [address] [place] [address] Oct, [facility] [address], [place] [address] Oct, Right shoulder pain 719.41 [facility] [address], [place] [address] Sep, [facility] [id number] [place] [address] Sep, Vertigo 780.4 and Elbow fracture, right 812.40 [facility] [address], [place] [address] Sep, [facility] [id number] [place] [address] August, [facility] [address], [place] [address] Jul, [facility] [address], [place] [address] Jul, [facility] [address], [place] [address] Jun, [facility] [address], [place] [address] Jun, [facility] [address], [place] [address] Jun, [facility] [address], [place] [address] Jun, [facility] [id number] [address] Jun, [facility] [id number] [address] Jun, [facility] [id number] [address] May, [facility] [id number] [address] May, [facility] [place] [facility] [address] [id number] [place] [address] May, [facility] [place] [facility] [address] [id number] [place] [address] May, [facility] [place] [facility] [address] [id number] [place] [address] May, [facility] [place] [facility] [address] [id number] [place] [address] May, [facility] [place] [facility] [address] [id number] [place] [address] Apr, [facility] [place] [facility] [address] [facility] [id number] [place] [address] Apr, [facility] [place] [facility] [address] [facility] [id number] [place] [address] Apr, [facility] [place] [facility] [address] [id number] [place] [address] Apr, [facility] [place] [facility] [address] [facility] [id number] [place] [address] Apr, [facility] [place] [facility] [address] [facility] [id number] [place] [address] Apr, [facility] [place] [facility] [address] [facility] [id number] [place] [address] Apr, [facility] [place] [facility] [address] [id number] [place] [address] Mar, [facility] [place] [facility] [address] [id number] [place] [address] Mar, [facility] [place] [facility] [address] [facility] [id number] [place] [address] Mar, [facility] [place] [facility] [address] [facility] [id number] [place] [address] Mar, [facility] [place] [facility] [address] [id number] [place] [address] Mar, [facility] [place] [facility] [address] [id number] [place] [address] Mar, [facility] [place] [facility] [address] [id number] [place] [address] Mar, [facility] [place] [facility] [address] [id number] [place] [address] Mar, [facility] [place] [facility] [address] [id number] [place] [address] Mar, [facility] [place] [facility] [address] [id number] [place] [address] Mar, [facility] [place] [facility] [address] [id number] [place] [address] Mar, [facility] [place] [facility] [address] [id number] [place] [address] Mar, [facility] [place] [facility] [address] [id number] [place] [address] Mar, [facility] [place] [facility] [address] [id number] [place] [address] Mar, [facility] [place] [facility] [address] [id number] [place] [address] Mar, [facility] [place] [facility] [address] [id number] [address] Feb, [facility] [place] [facility] [address] [id number] [place] [address] Feb, [facility] [place] [facility] [address] [id number] [place] [address] Feb, [facility] [place] [facility] [address] [id number] [place] [address] Feb, [facility] [place] [facility] [address] [id number] [place] [address] Feb, [facility] [place] [facility] [address] [id number] [place] [address] Feb, [facility] [place] [facility] [address] [id number] [place] [address] Jan, [facility] [place] [facility] [address] [id number] [place] [address] Jan, [facility] [place] [facility] [address] [id number] [place] [address] Jan, [facility] [place] [facility] [address] [id number] [place] [address] Jan, [facility] [place] [facility] [address] [id number] [place] [address] Jan, [facility] [place] [facility] [address] [id number] [place] [address] Jan, [facility] [place] [facility] [address] [id number] [place] [address] 29 Dec, 2013 [facility] [place] [facility] [address] [id number] [place] [address] 29 Dec, 2013 [facility] [place] [facility] [address] [id number] [place] [address] 26 Dec, 2013 [facility] [place] [facility] [address] [id number] [place] [address] 11 Dec, 2013 [facility] [place] [facility] [address] [id number] [place] [address] 11 Dec, 2013 [facility] [place] [facility] [address] [id number] [place] [address] 08 Dec, 2013 [facility] [place] [facility] [address] [id number] [place] [address] 08 Dec, 2013 [facility] [place] [facility] [address] [id number] [place] [address] 08 Dec, 2013 [facility] [place] [facility] [address] [id number] [place] [address] Dec, [facility] [place] [facility] [address] [id number] [place] [address] Dec, [facility] [place] [facility] [address] [id number] [place] [address] Dec, [facility] [place] [facility] [address] [id number] [place] [address] Nov, [facility] [place] [facility] [address] [id number] [place] [address] Nov, [facility] [place] [facility] [address] [id number] [place] [address] Nov, [facility] [place] [facility] [address] [id number] [place] [address] Nov, [facility] [place] [facility] [address] [id number] [place] [address] Nov, [facility] [place] [facility] [address] [id number] [place] [address] Nov, [facility] [place] [facility] [address] [id number] [place] [address] Nov, [facility] [place] [facility] [address] [id number] [place] [address] Nov, [facility] [place] [facility] [address] [id number] [place] [address] Nov, [facility] [place] [facility] [address] [id number] [place] [address] Nov, [facility] [place] [facility] [address] [id number] [place] [address] Oct, [facility] [place] [facility] [address] [id number] [place] [address] Oct, [facility] [place] [facility] [address] [id number] [place] [address] Oct, [facility] [place] [facility] [address] [id number] [place] [address] Oct, [facility] [place] [facility] [address] [id number] [place] [address] Oct, [facility] [place] [facility] [address] [id number] [place] [address] Oct, [facility] [place] [facility] [address] [id number] [place] [address] Oct, [facility] [place] [facility] [address] [id number] [place] [address] Oct, [facility] [place] [facility] [address] [id number] [place] [address] Oct, [facility] [place] [facility] [address] [id number] [place] [address] Oct, [facility] [place] [facility] [address] [id number] [place] [address] Oct, [facility] [place] [facility] [address] [id number] [place] [address] Oct, [facility] [place] [facility] [address] [id number] [place] [address] Oct, [facility] [place] [facility] [address] [id number] [place] [address] Sep, [facility] [place] [facility] [address] [id number] [place] [address] Sep, [facility] [place] [facility] [address] [id number] [place] [address] Sep, [facility] [place] [facility] [address] [id number] [place] [address] Sep, [facility] [place] [facility] [address] [id number] [place] [address] August, [facility] [place] [facility] [address] [id number] [place] [address] August, [facility] [address] [id number] [place] [address] August, [facility] [address] [id number] [place] [address] August, [facility] [address] [id number] [place] [address] August, [facility] [address] [id number] [place] [address] August, [facility] [address] [id number] [place] [address] August, [facility] [address] [id number] [place] [address] August, [facility] [address] [id number] [place] [address] Jul, [facility] [address] [id number] [place] [address] Jul, [facility] [address] [id number] [place] [address] Jun, [facility] [address] [id number] [place] [address] Jun, [facility] [place] [facility] [address] [id number] [place] [address] Jun, [facility] [address] [id number] [place] [address] Jun, [facility] [place] [facility] [address] [id number] [place] [address] Jun, [facility] [place] [facility] [address] [id number] [place] [address] Jun, [facility] [place] [facility] [address] [id number] [place] [address] May, [facility] [place] [facility] [address] [id number] [place] [address] May, [facility] [place] [facility] [address] [id number] [place] [address] May, [facility] [place] [facility] [address] [id number] [place] [address] May, [facility] [place] [facility] [address] [id number] [place] [address] May, [facility] [facility] [address] [id number] [place] [address] May, [facility] [place] [facility] [address] [id number] [place] [address] Apr, [facility] [place] [facility] [address] [id number] [place] [address] Apr, [facility] [place] [facility] [address] [id number], [place] [address] 15 Feb, 2013 [facility] [place] [facility] [address] [id number] [place] [address] 15 Feb, 2013 [facility] [place] [facility] [address] [id number] [place] [address] 15 Feb, 2013 [facility] [place] [facility] [address] [id number], [place] [address] 15 Feb, 2013 [facility] [place] [facility] [address] [id number], [place] [address] 13 Feb, 2013 [facility] [place] [facility] [address] [id number] [place] [address] 13 Feb, 2013 [facility] [place] [facility] [address] [id number], [place] [address] 11 Feb, 2013 [facility] [place] [facility] [address] [id number] [place] [address] 11 Feb, 2013 [facility] [place] [facility] [address] [id number] [place] [address] 08 Feb, 2013 [facility] [place] [facility] [address] [id number] [place] [address] Jan, 2012 [facility] [place] [facility] [address] [id number] [place] [address] Jan, 2012 [facility] [place] [facility] [address] [id number] [place] [address] Jan, 2012 [facility] [place] [facility] [address] [id number] [place] [address] Jan, 2012 [facility] [place] [facility] [address] [id number] [place] [address] Jan, [facility] [place] [facility] [address] [id number] [place] [address] Jan, [facility] [place] [facility] [address] [id number] [place] [address] 17 Dec, 2012 [facility] [place] [facility] [address] [id number] [place] [address] 12 Dec, 2012 [facility] [place] [facility] [address] [id number] [place] [address] 05 Dec, 2012 [facility] [place] [facility] [address] [id number] [place] [address] 05 Dec, 2012 [facility] [place] [facility] [address] [id number] [place] [address] Oct, [facility] [place] [facility] [address] [id number] [place] [address] Oct, [facility] [place] [facility] [address] [id number] [place] [address] Oct, 2012 [facility] [place] [facility] [address] [id number] [place] [address] Oct, 2012 [facility] [place] [facility] [address] [id number] [place] [address] Oct, [facility] [address] [id number] [place] [address] Sep, [facility] [address] [id number] [place] [address] August, [facility] [address] [id number] [place] [address] August, [facility] [address] [id number] [place] [address] August, [facility] [address] [id number] [place] [address] August, [facility] [address] [id number] [place] [address] August, [facility] [address] [id number] [place] [address] August, [facility] [address] [id number] [place] [address] August, [facility] [address] [id number] [place] [address] August, [facility] [address] [id number] [place] [address] August, [facility] [address] [id number] [place] [address] August, [facility] [address] [id number] [place] [address] August, [facility] [address] [id number] [place] [address] August, [facility] [address] [id number] [place] [address] Jun, [facility] [address] [id number] [place] [address] Jun, [facility] [address] [id number], [place] [address] Jun, [facility] [address] [id number] [place] [address] May, [facility] [address] [id number] [place] [address] May, [facility] [address] [facility] [id number] [place] [address] Mar, [facility] [address] [id number] [place] [address] Mar, [facility] [address] [id number] [place] [address] Feb, [facility] [address] [id number] [place] [address] Feb, [facility] [address] [facility] [id number] [place] [address] Feb, [facility] [facility] [address] [id number] [place] [address] Feb, [facility] [address] [facility] [id number] [place] [address] Dec, [facility] [facility] [address] [facility] [id number] [place] [address] August, [facility] [address] [id number], [place] [address] Jul, [facility] [address] [id number], [place] [address] 05 Jul, 2011 [facility] [place] [facility] [address] [id number] [place] [address] 13 Jun, 2011 [facility] [facility] [address] [id number] [place] [address] 13 Jun, 2011 [facility] [address] [facility] [id number] [place] [address] Jun, [facility] [address] [id number] [place] [address] Jun, [facility] [address] [id number] [place] [address] Jun, [facility] [address] [id number] [place] [address] May, [facility] [address] [id number] [place] [address] May, [facility] [facility] [address] [id number] [place] [address] 14 May, 2011 [facility] [address] [id number] [place] [address] May, [facility] [address] [facility] [id number] [place] [address] Apr, [facility] [address] [facility] [id number] [place] [address] Apr, [facility] [address] [facility] [id number] [place] [address] Apr, [facility] [address] [facility] [id number] [place] [address] Mar, [facility] [address] [facility] [id number] [place] [address] Mar, [facility] [address] [id number] [place] [address] Mar, [facility] [address] [facility] [id number] [place] [address] Mar, [facility] [address] [id number] [place] [address] May, [facility] [address] [id number] [place] [address] Feb, [facility] [address] [id number] [place] [address] Feb, [facility] [address] [facility] [id number] [place] [address] Jan, [facility] [address] [facility] [id number] [place] [address] Jan, IMMUNIZATIONS No Known Immunizations SOCIAL HISTORY Never Assessed REASON FOR VISIT Referral Request PLAN OF CARE VITAL SIGNS MEDICATIONS [...]
--- OUTSIDE RECORDS SUMMARY | 2018-09-19 01:23 | XMS REPORT ---
Author Author SAMMY ARZATE Organization [facility] Address [address] [place] [address] Care Team Providers Care Engraver Wood Name Role Phone SAMMY ARZATE Unavailable PROBLEMS Type Condition ICD9-CM Code JTQ45-EX Code Onset Dates Condition Status SNOMED Code Problem 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 Active 384103436 Problem Screening, lipid Z13.220 Active 419355509 Problem Shortness of breath R06.02 Active 492533813 Problem Benign prostatic hyperplasia, unspecified whether lower urinary tract symptoms present N40.0 Active 145585768 Problem Osteoarthritis, unspecified osteoarthritis type, unspecified site M19.90 Active 521956576 Problem 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 Active 005673073 Problem Gastroesophageal reflux disease without esophagitis K21.9 Active 772276074 Problem Other chronic pain G89.29 Active 51735489 ALLERGIES No Information ENCOUNTERS Encounter Location Date Diagnosis [place] [address] [address] Feb, Osteoarthritis, unspecified osteoarthritis type, unspecified site M19.90 [place] [address] [place] [id number] [place] [address] Jan, [place] [address] [address] Jan, Osteoarthritis, unspecified osteoarthritis type, unspecified site M19.90 [place] [address] [address] Jan, Low back pain M54.5 and Other chronic pain G89.29 [place] [address] [address] Dec, Osteoarthritis, unspecified osteoarthritis type, unspecified site M19.90 [facility] [address], [place] [address] Dec, [facility] [address] [place] [id number] [place] [address] Nov, Osteoarthritis, unspecified osteoarthritis type, unspecified site M19.90 [facility] [address] [place] [id number] [address] Nov, Shortness of breath R06.02 [facility] [address] [place] [id number] [place] [address] Nov, [facility] [address] [place] [id number] [place] [address] Nov, [facility] [address] [place] [id number] [place] [address] Oct, Osteoarthritis, unspecified osteoarthritis type, unspecified site M19.90 [facility] [address] [place] [id number] [place] [address] Sep, [facility] [address] [place] [id number] [place] [address] Sep, Osteoarthritis, unspecified osteoarthritis type, unspecified site M19.90 [facility] [address], [place] [address] August, Other chronic pain G89.29 and Other specified personal risk factors, not elsewhere classified Z91.89 [facility] [address], [place] [address] August, Osteoarthritis, unspecified osteoarthritis type, unspecified site M19.90 [facility] [address] [place] [id number] [place] [address] Jul, Osteoarthritis, unspecified osteoarthritis type, unspecified site M19.90 [facility] [address], [place] [address] Jun, Osteoarthritis, unspecified osteoarthritis type, unspecified site M19.90 [place] [address], [place] [address] Jun, [place] [address] [place] [id number] [place] [id number] Jun, Osteoarthritis, unspecified osteoarthritis type, unspecified site M19.90 [place] [id number] [place] [address] May, [place] [address] [place] [id number] [place] [address] May, Benign prostatic hyperplasia, unspecified whether lower urinary tract symptoms present N40.0 [place] [id number] [place] [address] May, Osteoarthritis, unspecified osteoarthritis type, unspecified site M19.90 [place] [address] [place] [id number] [place] [address] May, [place] [address] [place] [id number] [address] Apr, Other chronic pain G89.29 ; Family history of diabetes mellitus Z83.3 ; Forgetfulness R68.89 ; History of multiple concussions Z87.820 ; Gastroesophageal reflux disease without esophagitis K21.9 and Screening, lipid Z13.220 [address], [place] [address] Apr, Other chronic pain G89.29 ; Forgetfulness R68.89 ; History of multiple concussions Z87.820 ; Gastroesophageal reflux disease without esophagitis K21.9 ; Screening, lipid Z13.220 and Family history of diabetes mellitus Z83.3 [address] [place] [address] Apr, Osteoarthritis, unspecified osteoarthritis type, unspecified site M19.90 [place] [address], [place] [address] Apr, Osteoarthritis, unspecified osteoarthritis type, unspecified site M19.90 [facility] [address], [place] [address] Apr, [facility] [address] [place] [id number] [place] [address] Mar, Osteoarthritis, unspecified osteoarthritis type, unspecified site M19.90 [facility] [address], [place] [address] Feb, Osteoarthritis, unspecified osteoarthritis type, unspecified site M19.90 [facility] [address] [place] [id number] [place] [address] Jan, Osteoarthritis, unspecified osteoarthritis type, unspecified site M19.90 [place] [address] [place] [id number] [place] [address] Dec, Osteoarthritis, unspecified osteoarthritis type, unspecified site M19.90 [place] [address] [place] [id number] [place] [address] Dec, [facility] [address] [place] [address] Nov, Encounter for screening for lipid disorder Z13.220 [place] [address] [place] [address] Nov, Osteoarthritis, unspecified osteoarthritis type, unspecified site M19.90 ; Encounter for screening for lipid disorder Z13.220 and Other chronic pain G89.29 [facility] [address], [place] [address] Nov, Osteoarthritis, unspecified osteoarthritis type, unspecified site M19.90 [facility] [address], [place] [address] Nov, [facility] [address], [place] [address] Nov, [facility] [address], [place] [address] Oct, Osteoarthritis, unspecified osteoarthritis type, unspecified site M19.90 [facility] [address], [place] [address] Oct, Gastroesophageal reflux disease without esophagitis K21.9 [facility] [address] [place] [id number] [place] [address] Sep, Osteoarthritis, unspecified osteoarthritis type, unspecified site M19.90 [facility] [address] [place] [id number] [place] [address] August, Osteoarthritis, unspecified osteoarthritis type, unspecified site M19.90 [place] [address] [place] [id number] [place] [address] August, Osteoarthritis, unspecified osteoarthritis type, unspecified site M19.90 [place] [address] [place] [id number] [place] [address] Jul, Osteoarthritis, unspecified osteoarthritis type, unspecified site M19.90 and Gastroesophageal reflux disease without esophagitis K21.9 [place] [address] [place] [address] Jul, Osteoarthritis, unspecified osteoarthritis type, unspecified site M19.90 [facility] [address] [place] [id number] [place] [address] Jun, Ventral hernia without obstruction or gangrene K43.9 [facility] [address], [place] [address] Jun, Osteoarthritis, unspecified osteoarthritis type, unspecified site M19.90 [facility] [address], [place] [address] May, [facility] [address] [place] [id number] [place] [address] May, Osteoarthritis, unspecified osteoarthritis type, unspecified site M19.90 [facility] [address], [place] [address] Apr, Osteoarthritis, unspecified osteoarthritis type, unspecified site M19.90 [facility] [address] [place] [id number] [address] Mar, [facility] [address] [place] [id number] [place] [address] Mar, Osteoarthritis, unspecified osteoarthritis type, unspecified site M19.90 and Lumbago with sciatica, left side M54.42 [place] [address] [place] [id number] [place] [address] Feb, [place] [address] [place] [id number] [place] [address] Feb, [facility] [place] [address] [place] [id number] [place] [address] Feb, Osteoarthritis, unspecified osteoarthritis type, unspecified site M19.90 [place] [address] [place] [id number] [place] [address] Feb, [place] [address] [place] [id number] [place] [address] Feb, Low back pain M54.5 and Other chronic pain G89.29 [place] [address] [place] [id number] [place] [address] Feb, [place] [address] [place] [id number] [place] [address] Jan, [facility] [address] [place] [id number] [place] [address] 05 Jan, 2016 [facility] [address] [place] [address] 24 Dec, 2015 Lumbago with sciatica, left side M54.42 [facility] [address] [place] [id number] [place] [address] 15 Dec, 2015 Irritable bowel syndrome with both constipation and diarrhea K58.0 ; Screening, lipid Z13.220 ; Nocturia R35.1 ; Family history of diabetes mellitus Z83.3 and Dysuria R30.0 [facility] [address] [place] [id number] [place] [address] 14 Dec, 2015 Irritable bowel syndrome with both constipation and diarrhea K58.0 ; Nocturia R35.1 ; Family history of diabetes mellitus Z83.3 ; Dysuria R30.0 and Screening, lipid Z13.220 [place] [address] [address] 12 Dec, 2015 [facility] [address] [place] [id number] [place] [address] 07 Dec, 2015 [facility] WALK IN [facility] [address] [address] 2015 Pain with swallowing R13.10 [place] [address] [place] [id number] [place] [address] Nov, [place] [address] [address] Nov, [place] [address] [place] [id number] [place] [address] Oct, [place] [address] [place] [id number] [place] [address] Sep, [place] [address] [place] [id number] [place] [address] Sep, Osteoarthritis, unspecified osteoarthritis type, unspecified site M19.90 [place] [address] [place] [id number] [place] [address] Sep, Back pain M54.9 [place] [address] [address] 07 Sep, 2015 Lumbago with sciatica, right side M54.41 and Bilateral impacted cerumen H61.23 [place] [address] [place] [id number] [place] [address] Sep, [place] [address], [place] [address] August, Bronchitis J40 [facility] [address] [facility] [id number] [address] August, [facility] [address] [facility] [id number] [address] August, [facility] [address] [facility] [id number] [place] [address] August, [facility] [address] [facility] [id number] [place] [address] Jul, [facility] [address] [place] [id number] [place] [address] Jul, Back pain M54.9 [facility] [address] [place] [address] Jun, Degenerative disc disease at L5-S1 level M51.36 and Bronchitis J40 [facility] [address], [place] [address] Jun, [facility] [address] [place] [id number] [place] [address] May, [facility] [address], [place] [address] Apr, [facility] [address], [place] [address] Mar, [facility] [address], [place] [address] Mar, [facility] [address] [place] [address] Feb, [facility] [address], [place] [address] Jan, [facility] [address], [place] [address] Dec, [facility] [address], [place] [address] Nov, [facility] [address] [place] [id number] [place] [address] Oct, [facility] [address], [place] [address] Oct, Right shoulder pain 719.41 [facility] [address] [place] [id number] [place] [address] Sep, [facility] [address] [place] [id number] [place] [address] Sep, Vertigo 780.4 and Elbow fracture, right 812.40 [facility] [address] [place] [id number] [address] Sep, [facility] [address] [place] [id number] [place] [address] August, [facility] [address], [place] [address] Jul, [facility] [address] [place] [id number] [place] [address] Jul, [facility] [address], [place] [address] Jun, [facility] [address], [place] [address] Jun, [facility] [address], [place] [address] Jun, [facility] [address] [place] [id number] [place] [address] Jun, [facility] [address], [place] [address] Jun, [facility] [address], [place] [address] Jun, [facility] [place] [facility] [address] [id number] [place] [address] May, [facility] [place] [facility] [address] [id number] [place] [address] May, [facility] [place] [facility] [address] [id number] [place] [address] May, [facility] [place] [facility] [address] [id number] [place] [address] May, [facility] [place] [facility] [address] [id number] [place] [address] May, [facility] [place] [facility] [address] [id number] [place] [address] May, [facility] [place] [facility] [address] [facility] [id number] [place] [address] Apr, [facility] [place] [facility] [address] [id number] [place] [address] Apr, [facility] [place] [facility] [address] [id number] [place] [address] Apr, [facility] [place] [facility] [address] [facility] [id number] [place] [address] Apr, [facility] [place] [facility] [address] [id number] [place] [address] Apr, [facility] [place] [facility] [address] [id number] [place] [address] Apr, [facility] [place] [facility] [address] [id number] [place] [address] Apr, [facility] [place] [facility] [address] [facility] [id number] [place] [address] Mar, [facility] [place] [facility] [address] [facility] [id number] [place] [address] Mar, [facility] [place] [facility] [address] [id number] [place] [address] Mar, [facility] [place] [facility] [address] [id number] [place] [address] Mar, [facility] [place] [facility] [address] [id number] [place] [address] Mar, [facility] [place] [facility] [address] [id number] [place] [address] Mar, [facility] [place] [facility] [address] [id number] [place] [address] Mar, [facility] [place] [facility] [address] [id number] [place] [address] Mar, [facility] [place] [facility] [address] [id number] [place] [address] Mar, [facility] [place] [facility] [address] [id number] [place] [address] Mar, [facility] [place] [facility] [address] [id number] [place] [address] Mar, [facility] [place] [facility] [address] [id number] [place] [address] Mar, [facility] [place] [facility] [address] [id number] [place] [address] Mar, [facility] [place] [facility] [address] [id number] [place] [address] Mar, [facility] [place] [facility] [address] [id number] [place] [address] Mar, [facility] [place] [facility] [address] [id number] [place] [address] Feb, [facility] [place] [facility] [address] [id number] [place] [address] Feb, [facility] [place] [facility] [address] [id number] [place] [address] Feb, [facility] [place] [facility] [address] [id number] [place] [address] Feb, [facility] [place] [facility] [address] [id number] [place] [address] Feb, [facility] [place] [facility] [address] [id number] [place] [address] Feb, [facility] [place] [facility] [address] [id number] [place] [address] Jan, [facility] [place] [facility] [address] [id number] [place] [address] Jan, [facility] [place] [facility] [address] [id number] [place] [address] Jan, [facility] [place] [facility] [address] [id number] [place] [address] Jan, [facility] [place] [facility] [address] [id number] [place] [address] Jan, [facility] [place] [facility] [address] [id number] [place] [address] Jan, [facility] [place] [facility] [address] [id number] [place] [address] 29 Dec, 2013 [facility] [place] [facility] [address] [id number] [place] [address] 29 Dec, 2013 [facility] [place] [facility] [address] [id number] [place] [address] 26 Dec, 2013 [facility] [place] [facility] [address] [id number] [place] [address] 11 Dec, 2013 [facility] [place] [facility] [address] [id number] [place] [address] 11 Dec, 2013 [facility] [place] [facility] [address] [id number] [place] [address] 08 Dec, 2013 [facility] [place] [facility] [address] [id number] [place] [address] Dec, 2013 [facility] [place] [facility] [address] [id number] [place] [address] Dec, 2013 [facility] [place] [facility] [address] [id number] [place] [address] Dec, 2013 [facility] [place] [facility] [address] [id number] [place] [address] Dec, 2013 [facility] [place] [facility] [address] [id number] [place] [address] Dec, 2013 [facility] [place] [facility] [address] [id number] [place] [address] Nov, [facility] [place] [facility] [address] [id number] [place] [address] Nov, [facility] [place] [facility] [address] [id number] [place] [address] Nov, [facility] [place] [facility] [address] [id number] [place] [address] Nov, [facility] [place] [facility] [address] [id number] [place] [address] Nov, [facility] [place] [facility] [address] [id number] [place] [address] Nov, [facility] [place] [facility] [address] [id number] [place] [address] Nov, [facility] [place] [facility] [address] [id number] [place] [address] Nov, [facility] [place] [facility] [address] [id number] [place] [address] Nov, [facility] [place] [facility] [address] [id number] [place] [address] Nov, [facility] [place] [facility] [address] [id number] [place] [address] Oct, [facility] [place] [facility] [address] [id number] [place] [address] Oct, [facility] [place] [facility] [address] [id number] [place] [address] Oct, [facility] [place] [facility] [address] [id number] [place] [address] Oct, [facility] [place] [facility] [address] [id number] [place] [address] Oct, [facility] [place] [facility] [address] [id number] [place] [address] Oct, [facility] [place] [facility] [address] [id number] [place] [address] Oct, [facility] [place] [facility] [address] [id number] [place] [address] Oct, [facility] [place] [facility] [address] [id number] [place] [address] Oct, [facility] [place] [facility] [address] [id number] [place] [address] Oct, [facility] [place] [facility] [address] [id number] [place] [address] Oct, [facility] [place] [facility] [address] [id number] [place] [address] Oct, [facility] [place] [facility] [address] [id number] [place] [address] Oct, [facility] [place] [facility] [address] [id number] [place] [address] Sep, [facility] [place] [facility] [address] [id number] [place] [address] Sep, [facility] [place] [facility] [address] [id number] [place] [address] Sep, [facility] [place] [facility] [address] [id number] [place] [address] Sep, [facility] [place] [facility] [address] [id number] [place] [address] August, [facility] [place] [facility] [address] [id number] [place] [address] August, [facility] [place] [facility] [address] [id number] [place] [address] August, [facility] [place] [facility] [address] [id number] [place] [address] August, [facility] [place] [facility] [address] [id number] [place] [address] August, [facility] [place] [facility] [address] [id number] [place] [address] August, [facility] [place] [facility] [address] [id number] [place] [address] August, [facility] [place] [facility] [address] [id number] [place] [address] August, [facility] [place] [facility] [address] [id number] [place] [address] Jul, [facility] [place] [facility] [address] [id number] [place] [address] Jul, [facility] [place] [facility] [address] [id number] [place] [address] Jun, [facility] [place] [facility] [address] [id number] [place] [address] Jun, [facility] [place] [facility] [address] [id number] [place] [address] Jun, [facility] [place] [facility] [address] [id number] [place] [address] Jun, [facility] [place] [facility] [address] [id number] [place] [address] Jun, [facility] [place] [facility] [address] [id number] [place] [address] Jun, [facility] [place] [facility] [address] [id number] [place] [address] May, [facility] [place] [facility] [address] [id number] [place] [address] May, [facility] [place] [facility] [address] [id number] [place] [address] May, [facility] [place] [facility] [address] [id number] [place] [address] May, [facility] [place] [facility] [address] [id number] [place] [address] May, [facility] [place] [facility] [address] [id number] [place] [address] May, [facility] [place] [facility] [address] [id number] [place] [address] Apr, [facility] [place] [facility] [address] [id number] [place] [address] Apr, [facility] [place] [facility] [address] [id number] [place] [address] 15 Feb, 2013 [facility] [place] [facility] [address] [id number] [place] [address] 15 Feb, 2013 [facility] [place] [facility] [address] [id number] [place] [address] 15 Feb, 2013 [facility] [place] [facility] [address] [id number] [place] [address] 15 Feb, 2013 [facility] [place] [facility] [address] [id number] [place] [address] 13 Feb, 2013 [facility] [place] [facility] [address] [address] [id number] [place] [address] 13 Feb, 2013 [facility] [place] [facility] [address] [id number] [place] [address] Feb, [facility] [place] [facility] [address] [id number] [place] [address] Feb, [facility] [place] [facility] [address] [id number] [place] [address] Feb, [facility] [place] [facility] [address] [id number] [place] [address] Jan, [facility] [place] [facility] [address] [id number] [place] [address] Jan, [facility] [place] [facility] [address] [id number] [place] [address] Jan, [facility] [place] [facility] [address] [id number] [place] [address] Jan, [facility] [place] [facility] [address] [id number] [place] [address] Jan, [facility] [place] [facility] [address] [id number] [place] [address] Jan, [facility] [place] [facility] [address] [id number] [place] [address] Dec, [facility] [place] [facility] [address] [id number], [place] [address] 12 Dec, 2012 [facility] [place] [facility] [address] [id number], [place] [address] Dec, [facility] [place] [facility] [address] [id number], [place] [address] Dec, [facility] [place] [facility] [address] [id number] [place] [address] Oct, [facility] [place] [facility] [address] [id number], [place] [address] Oct, [facility] [place] [facility] [address] [facility] [id number], [place] [address] Oct, [facility] [place] [facility] [address] [id number], [place] [address] Oct, [facility] [address] [id number] [place] [address] Oct, [facility] [address] [id number] [place] [address] Sep, [facility] [address] [id number] [place] [address] August, [facility] [address] [id number] [place] [address] August, [facility] [address] [id number] [place] [address] August, [facility] [address] [id number] [place] [address] August, [facility] [address] [id number] [place] [address] August, [facility] [address] [id number] [place] [address] August, [facility] [address] [id number] [place] [address] August, [facility] [address] [id number] [place] [address] August, [facility] [address] [id number] [place] [address] August, [facility] [address] [id number] [place] [address] August, [facility] [address] [id number] [place] [address] August, [facility] [address] [id number] [place] [address] August, [facility] [address] [id number] [place] [address] Jun, [facility] [address] [id number] [place] [address] Jun, [facility] [place] [facility] [address] [id number] [place] [address] Jun, [facility] [place] [facility] [address] [id number] [place] [address] May, [facility] [place] [facility] [address] [id number] [place] [address] May, [facility] [place] [facility] [address] [id number] [place] [address] Mar, [facility] [place] [facility] [address] [id number] [place] [address] Mar, [facility] [place] [facility] [address] [id number] [place] [address] Feb, [facility] [place] [facility] [address] [id number] [place] [address] Feb, [facility] [place] [facility] [address] [id number] [place] [address] Feb, [facility] [place] [facility] [address] [id number] [place] [address] Feb, [facility] [place] [facility] [address] [id number] [place] [address] Dec, [facility] [place] [facility] [address] [id number] [place] [address] August, [facility] [place] [facility] [address] [id number] [place] [address] Jul, [facility] [place] [facility] [address] [id number] [place] [address] 05 Jul, 2011 [facility] [place] [facility] [address] [id number] [place] [address] 13 Jun, 2011 [facility] [place] [facility] [address] [id number] [place] [address] Jun, [facility] [address] [id number] [place] [address] Jun, [facility] [place] [facility] [address] [id number] [place] [address] Jun, [facility] [place] [facility] [address] [facility] [id number] [place] [address] Jun, [facility] [place] [facility] [address] [id number] [place] [address] May, [facility] [place] [facility] [address] [id number] [place] [address] May, [facility] [place] [facility] [address] [id number] [place] [address] May, [facility] [place] [facility] [address] [id number] [place] [address] May, [facility] [place] [facility] [address] [id number] [place] [address] Apr, [facility] [place] [facility] [address] [id number] [place] [address] Apr, [facility] [place] [facility] [address] [facility] [id number] [place] [address] Apr, [facility] [place] [facility] [address] [id number], [place] [address] Mar, [facility] [place] [facility] [address] [id number], [place] [address] Mar, [facility] [place] [facility] [address] [id number] [place] [address] Mar, [facility] [place] [facility] [address] [facility] [id number] [place] [address] Mar, [facility] [place] [facility] [address] [facility] [id number] [place] [address] May, [facility] [place] [facility] [address] [facility] [id number] [place] [address] Feb, [facility] [address] [facility] [id number], [place] [address] Feb, [facility] [address] [facility] [id number], [place] [address] Jan, [facility] [address] [facility] [id number], [place] [address] Jan, IMMUNIZATIONS No Known Immunizations SOCIAL HISTORY Never Assessed REASON FOR VISIT Controlled Med Refill 03/09/18 PLAN OF CARE VITAL SIGNS MEDICATIONS Medication Instructions Dosage Frequency Start Date End Date Duration Status Oxycodone HCl 10 MG Orally Once a day 1 tablet 24h Feb, 28 days Active Xanax 1 MG Orally [...]
--- OUTSIDE RECORDS SUMMARY | 2018-09-19 01:24 | XMS REPORT ---
Author Author SAMMY ARZATE Organization [facility] Address [address] [place] [address] Care Team Providers Care Piano Mover Name Role Phone SAMMY ARZATE Unavailable PROBLEMS Type Condition ICD9-CM Code ZIV68-PA Code Onset Dates Condition Status SNOMED Code Problem 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 Active 034065763 Problem Screening, lipid Z13.220 Active 286251082 Problem Shortness of breath R06.02 Active 465481304 Problem Benign prostatic hyperplasia, unspecified whether lower urinary tract symptoms present N40.0 Active 637620492 Problem Osteoarthritis, unspecified osteoarthritis type, unspecified site M19.90 Active 918242552 Problem 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 Active 006136409 Problem Gastroesophageal reflux disease without esophagitis K21.9 Active 897038014 Problem Other chronic pain G89.29 Active 97106669 ALLERGIES No Information ENCOUNTERS Encounter Location Date Diagnosis [place] [id number] [place] [address] 16 Jan, 2018 [place] [id number] [place] [address] 12 Jan, 2018 Osteoarthritis, unspecified osteoarthritis type, unspecified site M19.90 [facility] [id number] [place] [address] 08 Jan, 2018 Low back pain M54.5 and Other chronic pain G89.29 [facility] [id number] [place] [address] 18 Dec, 2017 Osteoarthritis, unspecified osteoarthritis type, unspecified site M19.90 [facility] [id number] [place] [address] 14 Dec, 2017 [place] [address] [place] [address] Nov, Osteoarthritis, unspecified osteoarthritis type, unspecified site M19.90 [facility] [id number] [address] Nov, Shortness of breath R06.02 [facility] [address] [address] Nov, [facility] [id number] [place] [address] Nov, [facility] [id number] [place] [address] Oct, Osteoarthritis, unspecified osteoarthritis type, unspecified site M19.90 [facility] [address] [address] Sep, [facility] [id number] [place] [address] Sep, Osteoarthritis, unspecified osteoarthritis type, unspecified site M19.90 [facility] [id number] [address] August, Other chronic pain G89.29 and Other specified personal risk factors, not elsewhere classified Z91.89 [place] [address] [address] August, Osteoarthritis, unspecified osteoarthritis type, unspecified site M19.90 [facility] [address] [address] Jul, Osteoarthritis, unspecified osteoarthritis type, unspecified site M19.90 [facility] [id number] [address] Jun, Osteoarthritis, unspecified osteoarthritis type, unspecified site M19.90 [facility] [address] [address] Jun, [facility] [id number] [address] Jun, Osteoarthritis, unspecified osteoarthritis type, unspecified site M19.90 [place] [id number] [place] [address] May, [place] [id number] [place] [address] May, Benign prostatic hyperplasia, unspecified whether lower urinary tract symptoms present N40.0 [place] [id number] [place] [address] May, Osteoarthritis, unspecified osteoarthritis type, unspecified site M19.90 [place] [id number] [place] [address] May, [place] [id number] [place] [address] Apr, Other chronic pain G89.29 ; Family history of diabetes mellitus Z83.3 ; Forgetfulness R68.89 ; History of multiple concussions Z87.820 ; Gastroesophageal reflux disease without esophagitis K21.9 and Screening, lipid Z13.220 [place] [id number] [place] [address] Apr, Other chronic pain G89.29 ; Forgetfulness R68.89 ; History of multiple concussions Z87.820 ; Gastroesophageal reflux disease without esophagitis K21.9 ; Screening, lipid Z13.220 and Family history of diabetes mellitus Z83.3 [place] [address] [address] Apr, Osteoarthritis, unspecified osteoarthritis type, unspecified site M19.90 [place] [id number] [place] [address] Apr, Osteoarthritis, unspecified osteoarthritis type, unspecified site M19.90 [place] [id number] [address] Apr, [place] [address] [address] Mar, Osteoarthritis, unspecified osteoarthritis type, unspecified site M19.90 [facility] [id number] [place] [address] Feb, Osteoarthritis, unspecified osteoarthritis type, unspecified site M19.90 [facility] [id number] [address] Jan, Osteoarthritis, unspecified osteoarthritis type, unspecified site M19.90 [facility] [id number] [place] [address] Dec, Osteoarthritis, unspecified osteoarthritis type, unspecified site M19.90 [facility] [id number] [place] [address] Dec, [facility] [id number] [place] [address] Nov, Encounter for screening for lipid disorder Z13.220 [facility] [id number] [place] [address] Nov, Osteoarthritis, unspecified osteoarthritis type, unspecified site M19.90 ; Encounter for screening for lipid disorder Z13.220 and Other chronic pain G89.29 [facility] [address] [address] Nov, Osteoarthritis, unspecified osteoarthritis type, unspecified site M19.90 [facility] [address] [address] Nov, [facility] [id number] [place] [address] Nov, [facility] [id number] [place] [address] Oct, Osteoarthritis, unspecified osteoarthritis type, unspecified site M19.90 [facility] [id number] [place] [address] Oct, Gastroesophageal reflux disease without esophagitis K21.9 [facility] [id number] [place] [address] Sep, Osteoarthritis, unspecified osteoarthritis type, unspecified site M19.90 [facility] [id number] [place] [address] August, Osteoarthritis, unspecified osteoarthritis type, unspecified site M19.90 [facility] [id number] [place] [address] August, Osteoarthritis, unspecified osteoarthritis type, unspecified site M19.90 [facility] [id number] [place] [address] Jul, Osteoarthritis, unspecified osteoarthritis type, unspecified site M19.90 and Gastroesophageal reflux disease without esophagitis K21.9 [facility] [id number] [place] [address] Jul, Osteoarthritis, unspecified osteoarthritis type, unspecified site M19.90 [facility] [id number] [place] [address] Jun, Ventral hernia without obstruction or gangrene K43.9 [facility] [id number] [place] [address] Jun, Osteoarthritis, unspecified osteoarthritis type, unspecified site M19.90 [facility] [id number] [place] [address] May, [facility] [id number] [place] [address] May, Osteoarthritis, unspecified osteoarthritis type, unspecified site M19.90 [facility] [id number] [place] [address] Apr, Osteoarthritis, unspecified osteoarthritis type, unspecified site M19.90 [facility] [id number] [place] [address] Mar, [facility] [address] [address] Mar, Osteoarthritis, unspecified osteoarthritis type, unspecified site M19.90 and Lumbago with sciatica, left side M54.42 [facility] [address] [address] Feb, [facility] [id number] [place] [address] Feb, [facility] [id number] [place] [address] Feb, Osteoarthritis, unspecified osteoarthritis type, unspecified site M19.90 [facility] [id number] [place] [address] Feb, [facility] [id number] [place] [address] Feb, Low back pain M54.5 and Other chronic pain G89.29 [facility] [id number] [place] [address] Feb, [facility] [id number] [place] [address] Jan, [facility] [id number] [place] [address] 05 Jan, 2016 [facility] [id number] [place] [address] 24 Dec, 2015 Lumbago with sciatica, left side M54.42 [facility] [id number] [place] [address] 15 Dec, 2015 Irritable bowel syndrome with both constipation and diarrhea K58.0 ; Screening, lipid Z13.220 ; Nocturia R35.1 ; Family history of diabetes mellitus Z83.3 and Dysuria R30.0 [facility] [id number] [place] [address] 14 Dec, 2015 Irritable bowel syndrome with both constipation and diarrhea K58.0 ; Nocturia R35.1 ; Family history of diabetes mellitus Z83.3 ; Dysuria R30.0 and Screening, lipid Z13.220 [facility] [address] [address] 12 Dec, 2015 [facility] [address] [address] 07 Dec, 2015 [facility] [address] [address] Dec, Pain with swallowing R13.10 [place] [address] [address] Nov, [place] [address] [address] Nov, [place] [address] [address] Oct, [place] [address] [address] Sep, [place] [address] [address] Sep, Osteoarthritis, unspecified osteoarthritis type, unspecified site M19.90 [place] [address] [address] Sep, Back pain M54.9 [place] [address] [address] Sep, Lumbago with sciatica, right side M54.41 and Bilateral impacted cerumen H61.23 [place] [address] [address] Sep, [place] [address] [address] August, Bronchitis J40 [place] [address] [address] August, [facility] [address] [address] August, [facility] [id number] [place] [address] August, [facility] [id number] [place] [address] Jul, [facility] [id number] [place] [address] Jul, Back pain M54.9 [facility] [id number] [place] [address] Jun, Degenerative disc disease at L5-S1 level M51.36 and Bronchitis J40 [facility] [id number] [place] [address] Jun, [facility] [id number] [place] [address] May, [facility] [id number] [place] [address] Apr, [facility] [id number] [place] [address] Mar, [facility] [address] [address] Mar, [facility] [id number] [place] [address] Feb, [facility] [address] [address] Jan, [facility] [id number] [place] [address] Dec, [facility] [address] [address] Nov, [facility] [id number] [address] Oct, [facility] [address] [address] Oct, Right shoulder pain 719.41 [facility] [address] [address] Sep, [facility] [id number] [place] [address] Sep, Vertigo 780.4 and Elbow fracture, right 812.40 [facility] [address] [address] Sep, [facility] [id number] [address] August, [facility] [address] [address] Jul, [facility] [address] [address] Jul, [facility] [address] [address] Jun, [facility] [address] [address] Jun, [facility] [address] [address] Jun, [facility] [address] [address] Jun, [facility] [id number] [address] Jun, [facility] [id number] [address] Jun, [facility] [id number] [address] May, [facility] [id number] [place] [address] May, [facility] [place] [facility] [address] [id number] [place] [address] May, [facility] [place] [facility] [address] [id number] [place] [address] May, [facility] [place] [facility] [address] [id number] [place] [address] May, [facility] [place] [facility] [address] [id number] [place] [address] May, [facility] [place] [facility] [address] [id number] [place] [address] Apr, [facility] [place] [facility] [address] [facility] [id number] [place] [address] Apr, [facility] [place] [facility] [address] [facility] [id number] [place] [address] Apr, [facility] [place] [facility] [address] [id number] [place] [address] Apr, [facility] [place] [facility] [address] [facility] [id number] [place] [address] Apr, [facility] [place] [facility] [address] [facility] [id number] [place] [address] Apr, [facility] [place] [facility] [address] [facility] [id number] [place] [address] Apr, [facility] [place] [facility] [address] [id number] [place] [address] Mar, [facility] [place] [facility] [address] [id number] [place] [address] Mar, [facility] [place] [facility] [address] [facility] [id number] [place] [address] Mar, [facility] [place] [facility] [address] [facility] [id number] [place] [address] Mar, [facility] [place] [facility] [address] [id number] [place] [address] Mar, [facility] [place] [facility] [address] [id number] [place] [address] Mar, [facility] [place] [facility] [address] [id number] [place] [address] Mar, [facility] [place] [facility] [address] [id number] [place] [address] Mar, [facility] [place] [facility] [address] [id number] [place] [address] Mar, [facility] [place] [facility] [address] [id number] [place] [address] Mar, [facility] [place] [facility] [address] [id number] [place] [address] Mar, [facility] [place] [facility] [address] [id number] [place] [address] Mar, [facility] [place] [facility] [address] [id number] [place] [address] Mar, [facility] [place] [facility] [address] [id number] [place] [address] Mar, [facility] [place] [facility] [address] [id number] [place] [address] Mar, [facility] [place] [facility] [address] [id number] [address] Feb, [facility] [place] [facility] [address] [id number] [place] [address] Feb, [facility] [place] [facility] [address] [id number] [place] [address] Feb, [facility] [place] [facility] [address] [id number] [place] [address] Feb, [facility] [place] [facility] [address] [id number] [place] [address] Feb, [facility] [place] [facility] [address] [id number] [place] [address] Feb, [facility] [place] [facility] [address] [id number] [place] [address] Jan, [facility] [place] [facility] [address] [id number] [place] [address] Jan, [facility] [place] [facility] [address] [id number] [place] [address] Jan, [facility] [place] [facility] [address] [id number] [place] [address] Jan, [facility] [place] [facility] [address] [id number] [place] [address] Jan, [facility] [place] [facility] [address] [id number] [place] [address] Jan, [facility] [place] [facility] [address] [id number] [place] [address] 29 Dec, 2013 [facility] [place] [facility] [address] [id number] [place] [address] 29 Dec, 2013 [facility] [place] [facility] [address] [id number] [place] [address] 26 Dec, 2013 [facility] [place] [facility] [address] [id number] [place] [address] 11 Dec, 2013 [facility] [place] [facility] [address] [id number] [place] [address] 11 Dec, 2013 [facility] [place] [facility] [address] [id number] [place] [address] 08 Dec, 2013 [facility] [place] [facility] [address] [id number] [place] [address] 08 Dec, 2013 [facility] [place] [facility] [address] [id number] [place] [address] 08 Dec, 2013 [facility] [place] [facility] [address] [id number] [place] [address] Dec, [facility] [place] [facility] [address] [id number] [place] [address] Dec, [facility] [place] [facility] [address] [id number] [place] [address] Dec, [facility] [place] [facility] [address] [id number] [place] [address] Nov, [facility] [place] [facility] [address] [id number] [place] [address] Nov, [facility] [place] [facility] [address] [id number] [place] [address] Nov, [facility] [place] [facility] [address] [id number] [place] [address] Nov, [facility] [place] [facility] [address] [id number] [place] [address] Nov, [facility] [place] [facility] [address] [id number] [place] [address] Nov, [facility] [place] [facility] [address] [id number] [place] [address] Nov, [facility] [place] [facility] [address] [id number] [place] [address] Nov, [facility] [place] [facility] [address] [id number] [place] [address] Nov, [facility] [place] [facility] [address] [id number] [place] [address] Nov, [facility] [place] [facility] [address] [id number] [place] [address] Oct, [facility] [place] [facility] [address] [id number] [place] [address] Oct, [facility] [place] [facility] [address] [id number] [place] [address] Oct, [facility] [place] [facility] [address] [id number] [place] [address] Oct, [facility] [place] [facility] [address] [id number] [place] [address] Oct, [facility] [place] [facility] [address] [id number] [place] [address] Oct, [facility] [place] [facility] [address] [id number] [place] [address] Oct, [facility] [place] [facility] [address] [id number] [place] [address] Oct, [facility] [place] [facility] [address] [id number] [place] [address] Oct, [facility] [place] [facility] [address] [id number] [place] [address] Oct, [facility] [place] [facility] [address] [id number] [place] [address] Oct, [facility] [place] [facility] [address] [id number] [place] [address] Oct, [facility] [place] [facility] [address] [id number] [place] [address] Oct, [facility] [place] [facility] [address] [id number] [place] [address] Sep, [facility] [place] [facility] [address] [id number] [place] [address] Sep, [facility] [place] [facility] [address] [id number] [place] [address] Sep, [facility] [place] [facility] [address] [id number] [place] [address] Sep, [facility] [place] [facility] [address] [id number] [place] [address] August, [facility] [place] [facility] [address] [id number] [place] [address] August, [facility] [address] [id number] [place] [address] August, [facility] [address] [id number] [place] [address] August, [facility] [address] [id number] [place] [address] August, [facility] [address] [id number] [place] [address] August, [facility] [address] [id number] [place] [address] August, [facility] [address] [id number] [place] [address] August, [facility] [address] [id number] [place] [address] Jul, [facility] [address] [id number] [place] [address] Jul, [facility] [address] [id number] [place] [address] Jun, [facility] [address] [id number] [place] [address] Jun, [facility] [place] [facility] [address] [id number] [place] [address] Jun, [facility] [address] [id number] [place] [address] Jun, [facility] [place] [facility] [address] [id number] [place] [address] Jun, [facility] [place] [facility] [address] [id number] [place] [address] Jun, [facility] [place] [facility] [address] [id number] [place] [address] May, [facility] [place] [facility] [address] [id number] [place] [address] May, [facility] [place] [facility] [address] [id number] [place] [address] May, [facility] [facility] [address] [id number] [place] [address] May, [facility] [place] [facility] [address] [id number] [place] [address] May, [facility] [place] [facility] [address] [id number] [place] [address] May, [facility] [place] [facility] [address] [id number] [place] [address] Apr, [facility] [place] [facility] [address] [id number] [place] [address] Apr, [facility] [place] [facility] [address] [id number] [place] [address] 15 Feb, 2013 [facility] [place] [facility] [address] [id number] [place] [address] 15 Feb, 2013 [facility] [place] [facility] [address] [id number] [place] [address] 15 Feb, 2013 [facility] [place] [facility] [address] [id number] [place] [address] 15 Feb, 2013 [facility] [place] [facility] [address] [id number] [place] [address] 13 Feb, 2013 [facility] [place] [address] [id number] [place] [address] 13 Feb, 2013 [facility] [place] [facility] [address] [id number] [place] [address] 11 Feb, 2013 [facility] [place] [facility] [address] [id number] [place] [address] 11 Feb, 2013 [facility] [place] [facility] [address] [id number] [place] [address] 08 Feb, 2013 [facility] [place] [facility] [address] [id number] [place] [address] Jan, 2012 [facility] [place] [facility] [address] [id number] [place] [address] Jan, 2012 [facility] [place] [facility] [address] [id number] [place] [address] Jan, 2012 [facility] [place] [facility] [address] [id number] [place] [address] Jan, 2012 [facility] [place] [facility] [address] [id number] [place] [address] Jan, [facility] [place] [facility] [address] [id number] [place] [address] Jan, [facility] [place] [facility] [address] [id number] [place] [address] 17 Dec, 2012 [facility] [place] [address] [id number] [place] [address] 12 Dec, 2012 [facility] [address] [id number] [place] [address] 05 Dec, 2012 [facility] [place] [facility] [address] [id number] [place] [address] 05 Dec, 2012 [facility] [place] [address] [id number] [place] [address] Oct, [facility] [address] [id number] [place] [address] Oct, [facility] [place] [facility] [address] [id number] [place] [address] Oct, 2012 [facility] [address] [id number] [place] [address] Oct, 2012 [facility] [facility] [address] [id number] [place] [address] Oct, [facility] [address] [id number] [place] [address] Sep, [facility] [address] [id number] [place] [address] August, [facility] [address] [id number] [place] [address] August, [facility] [address] [id number] [place] [address] August, [facility] [address] [id number] [place] [address] August, [facility] [address] [id number] [place] [address] August, [facility] [address] [id number] [place] [address] August, [facility] [address] [id number] [place] [address] August, [facility] [address] [id number] [place] [address] August, [facility] [address] [id number] [place] [address] August, [facility] [address] [id number] [place] [address] August, [facility] [address] [id number] [place] [address] August, [facility] [address] [id number] [place] [address] August, [facility] [address] [id number] [place] [address] Jun, [facility] [address] [id number] [place] [address] Jun, [facility] [address] [id number] [place] [address] Jun, [facility] [address] [id number] [place] [address] May, [facility] [address] [id number] [place] [address] May, [facility] [address] [facility] [id number] [place] [address] Mar, [facility] [address] [id number] [place] [address] Mar, [facility] [address] [id number] [place] [address] Feb, [facility] [address] [id number] [place] [address] Feb, [facility] [address] [facility] [id number] [place] [address] Feb, [facility] [address] [id number] [place] [address] Feb, [facility] [address] [facility] [id number] [place] [address] Dec, [facility] [address] [facility] [id number] [place] [address] August, [facility] [address] [id number] [place] [address] Jul, [facility] [address] [id number] [place] [address] 05 Jul, 2011 [facility] [address] [id number] [place] [address] 13 Jun, 2011 [facility] [address] [id number] [place] [address] 13 Jun, 2011 [facility] [address] [facility] [id number] [place] [address] Jun, [facility] [address] [id number] [place] [address] Jun, [facility] [address] [id number] [place] [address] Jun, [facility] [address] [id number] [place] [address] May, [facility] [address] [id number] [place] [address] May, [facility] [address] [id number] [place] [address] 14 May, 2011 [facility] [address] [id number] [place] [address] May, [facility] [address] [facility] [id number] [place] [address] Apr, [facility] [address] [facility] [id number] [place] [address] Apr, [facility] [address] [facility] [id number] [place] [address] Apr, [facility] [address] [facility] [id number] [place] [address] Mar, [facility] [address] [facility] [id number] [place] [address] Mar, [facility] [address] [id number] [place] [address] Mar, [facility] [address] [facility] [id number] [place] [address] Mar, [facility] [address] [id number] [place] [address] May, [facility] [address] [id number] [place] [address] Feb, [facility] [address] [id number] [place] [address] Feb, [facility] [address] [facility] [id number] [place] [address] Jan, [facility] [address] [facility] [id number] [place] [address] Jan, IMMUNIZATIONS No Known Immunizations SOCIAL HISTORY Never Assessed REASON FOR VISIT Controlled Med Refill 02/10/18 PLAN OF CARE VITAL SIGNS MEDICATIONS Medication Instructions Dosage Frequency Start Date End Date Duration Status Oxycodone HCl 10 MG Orally Once a day 1 tablet 24h 15 Jan, 2018 28 days Active Xanax 1 MG Orally Twice a day 1 tablet 12h 25 Jun, 2014 28 days Active RESULTS No Results PROCEDURES [...]
--- OUTSIDE RECORDS SUMMARY | 2018-09-19 01:25 | XMS REPORT ---
Author Author SAMMY ARZATE Organization [facility] Address [address] [place] [address] Care Team Providers Care Chain Maker Hand Name Role Phone SAMMY ARZATE Unavailable PROBLEMS Type Condition ICD9-CM Code EBO53-WK Code Onset Dates Condition Status SNOMED Code Problem 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 Active 260662812 Problem Screening, lipid Z13.220 Active 701983649 Problem Shortness of breath R06.02 Active 036663145 Problem Benign prostatic hyperplasia, unspecified whether lower urinary tract symptoms present N40.0 Active 624932635 Problem Osteoarthritis, unspecified osteoarthritis type, unspecified site M19.90 Active 114209326 Problem 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 Active 543687447 Problem Gastroesophageal reflux disease without esophagitis K21.9 Active 724978275 Problem Other chronic pain G89.29 Active 61934109 ALLERGIES No Information ENCOUNTERS Encounter Location Date Diagnosis [place] [id number] [place] [address] 08 Jan, 2018 [place] [id number] [place] [address] 18 Dec, 2017 Osteoarthritis, unspecified osteoarthritis type, unspecified site M19.90 [facility] [id number] [place] [address] 14 Dec, 2017 [facility] [id number] [place] [address] Nov, Osteoarthritis, unspecified osteoarthritis type, unspecified site M19.90 [facility] [id number] [place] [address] 14 Nov, 2017 Shortness of breath R06.02 [place] [id number] [place] [address] Nov, [facility] [address] [address] Nov, [facility] [id number] [place] [address] Oct, Osteoarthritis, unspecified osteoarthritis type, unspecified site M19.90 [facility] [address] [place] [address] Sep, [facility] [address] [place] [address] Sep, Osteoarthritis, unspecified osteoarthritis type, unspecified site M19.90 [place] [id number] [place] [address] August, Other chronic pain G89.29 and Other specified personal risk factors, not elsewhere classified Z91.89 [place] [id number] [place] [address] August, Osteoarthritis, unspecified osteoarthritis type, unspecified site M19.90 [facility] [id number] [place] [address] Jul, Osteoarthritis, unspecified osteoarthritis type, unspecified site M19.90 [facility] [address], [place] [address] Jun, Osteoarthritis, unspecified osteoarthritis type, unspecified site M19.90 [facility] [address] [address] Jun, [facility] [id number] [address] Jun, Osteoarthritis, unspecified osteoarthritis type, unspecified site M19.90 [facility] [address] [address] May, [facility] [address] [address] May, Benign prostatic hyperplasia, unspecified whether lower urinary tract symptoms present N40.0 [place] [id number] [place] [address] May, Osteoarthritis, unspecified osteoarthritis type, unspecified site M19.90 [place] [id number] [place] [address] May, [place] [id number] [place] [address] Apr, Other chronic pain G89.29 ; Family history of diabetes mellitus Z83.3 ; Forgetfulness R68.89 ; History of multiple concussions Z87.820 ; Gastroesophageal reflux disease without esophagitis K21.9 and Screening, lipid Z13.220 [place] [id number] [place] [address] Apr, Other chronic pain G89.29 ; Forgetfulness R68.89 ; History of multiple concussions Z87.820 ; Gastroesophageal reflux disease without esophagitis K21.9 ; Screening, lipid Z13.220 and Family history of diabetes mellitus Z83.3 [place] [id number] [place] [address] Apr, Osteoarthritis, unspecified osteoarthritis type, unspecified site M19.90 [place] [address] [place] [address] Apr, Osteoarthritis, unspecified osteoarthritis type, unspecified site M19.90 [place] [id number] [place] [address] Apr, [place] [id number] [place] [address] Mar, Osteoarthritis, unspecified osteoarthritis type, unspecified site M19.90 [place] [address] [place] [address] Feb, Osteoarthritis, unspecified osteoarthritis type, unspecified site M19.90 [place] [id number] [place] [address] Jan, Osteoarthritis, unspecified osteoarthritis type, unspecified site M19.90 [facility] [id number] [place] [address] Dec, Osteoarthritis, unspecified osteoarthritis type, unspecified site M19.90 [facility] [id number] [place] [address] Dec, [place] [id number] [place] [address] Nov, Encounter for screening for lipid disorder Z13.220 [place] [id number] [place] [address] Nov, Osteoarthritis, unspecified osteoarthritis type, unspecified site M19.90 ; Encounter for screening for lipid disorder Z13.220 and Other chronic pain G89.29 [place] [id number] [place] [address] Nov, Osteoarthritis, unspecified osteoarthritis type, unspecified site M19.90 [place] [id number] [place] [address] Nov, [place] [id number] [place] [address] Nov, [place] [id number] [place] [address] Oct, Osteoarthritis, unspecified osteoarthritis type, unspecified site M19.90 [place] [id number] [place] [address] Oct, Gastroesophageal reflux disease without esophagitis K21.9 [facility] [id number] [place] [address] Sep, Osteoarthritis, unspecified osteoarthritis type, unspecified site M19.90 [place] [id number] [place] [address] August, Osteoarthritis, unspecified osteoarthritis type, unspecified site M19.90 [facility] [id number] [place] [address] August, Osteoarthritis, unspecified osteoarthritis type, unspecified site M19.90 [facility] [id number] [place] [address] Jul, Osteoarthritis, unspecified osteoarthritis type, unspecified site M19.90 and Gastroesophageal reflux disease without esophagitis K21.9 [place] [id number] [place] [address] Jul, Osteoarthritis, unspecified osteoarthritis type, unspecified site M19.90 [place] [id number] [place] [address] Jun, Ventral hernia without obstruction or gangrene K43.9 [place] [id number] [place] [address] Jun, Osteoarthritis, unspecified osteoarthritis type, unspecified site M19.90 [place] [id number] [place] [address] May, [place] [id number] [place] [address] May, Osteoarthritis, unspecified osteoarthritis type, unspecified site M19.90 [place] [id number] [place] [address] Apr, Osteoarthritis, unspecified osteoarthritis type, unspecified site M19.90 [place] [id number] [place] [address] Mar, [place] [id number] [place] [address] Mar, Osteoarthritis, unspecified osteoarthritis type, unspecified site M19.90 and Lumbago with sciatica, left side M54.42 [place] [id number] [place] [address] Feb, [place] [address] [address] Feb, [facility] [address] [place] [address] Feb, Osteoarthritis, unspecified osteoarthritis type, unspecified site M19.90 [facility] [address] [place] [address] Feb, [facility] [id number] [place] [address] Feb, Low back pain M54.5 and Other chronic pain G89.29 [place] [id number] [place] [address] Feb, [place] [id number] [place] [address] Jan, [place] [id number] [place] [address] 05 Jan, 2016 [facility] [id number] [place] [address] 24 Dec, 2015 Lumbago with sciatica, left side M54.42 [place] [id number] [place] [address] 15 Dec, 2015 Irritable bowel syndrome with both constipation and diarrhea K58.0 ; Screening, lipid Z13.220 ; Nocturia R35.1 ; Family history of diabetes mellitus Z83.3 and Dysuria R30.0 [place] [address] [place] [address] 14 Dec, 2015 Irritable bowel syndrome with both constipation and diarrhea K58.0 ; Nocturia R35.1 ; Family history of diabetes mellitus Z83.3 ; Dysuria R30.0 and Screening, lipid Z13.220 [place] [address] [place] [address] 12 Dec, 2015 [facility] [id number] [place] [address] 07 Dec, 2015 [facility] [id number] [place] [address] Dec, Pain with swallowing R13.10 [facility] [id number] [place] [address] 24 Nov, 2015 [facility] [id number] [place] [address] Nov, [facility] [id number] [place] [address] Oct, [facility] [address] [address] Sep, [facility] [id number] [place] [address] Sep, Osteoarthritis, unspecified osteoarthritis type, unspecified site M19.90 [facility] [id number] [place] [address] Sep, Back pain M54.9 [facility] [id number] [place] [address] Sep, Lumbago with sciatica, right side M54.41 and Bilateral impacted cerumen H61.23 [facility] [id number] [place] [address] Sep, [facility] [id number] [place] [address] August, Bronchitis J40 [facility] [id number] [place] [address] August, [facility] [id number] [place] [address] August, [facility] [id number] [place] [address] August, [facility] [id number] [address] Jul, [facility] [id number] [place] [address] Jul, Back pain M54.9 [facility] [address] [address] Jun, Degenerative disc disease at L5-S1 level M51.36 and Bronchitis J40 [facility] [id number] [place] [address] Jun, [facility] [id number] [place] [address] May, [facility] [id number] [place] [address] Apr, [facility] [id number] [place] [address] Mar, [facility] [id number] [place] [address] Mar, [facility] [address] [place] [address] Feb, [facility] [id number] [address] Jan, [facility] [address], [place] [address] Dec, [facility] [id number] [place] [address] Nov, [facility] [address] [place] [address] Oct, [facility] [address] [place] [address] Oct, Right shoulder pain 719.41 [facility] [address], [place] [address] Sep, [facility] [address] [facility] [id number] [address] Sep, Vertigo 780.4 and Elbow fracture, right 812.40 [facility] [address] [facility] [id number] [place] [address] Sep, [facility] [address] [place] [address] August, [facility] [address] [facility] [id number], [place] [address] Jul, [facility] [address] [facility] [id number] [place] [address] Jul, [facility] [id number] [address] Jun, [facility] [address] [address] Jun, [facility] [id number] [address] Jun, [facility] [id number] [address] Jun, [facility] [address] [address] Jun, [facility] [address], [place] [address] Jun, [facility] [address] [facility] [id number], [place] [address] May, [facility] [address] [facility] [id number] [place] [address] May, [facility] [address] [facility] [id number] [place] [address] May, [facility] [id number] [place] [address] May, [facility] [place] [facility] [address] [id number] [place] [address] May, [facility] [place] [facility] [address] [id number] [place] [address] May, [facility] [place] [facility] [address] [id number] [place] [address] Apr, [facility] [place] [facility] [address] [id number] [place] [address] Apr, [facility] [place] [facility] [address] [id number] [place] [address] Apr, [facility] [place] [facility] [address] [id number] [place] [address] Apr, [facility] [place] [facility] [address] [id number] [place] [address] Apr, [facility] [place] [facility] [address] [id number] [place] [address] Apr, [facility] [place] [facility] [address] [id number] [place] [address] Apr, [facility] [place] [facility] [address] [id number] [place] [address] Mar, [facility] [place] [facility] [address] [id number] [place] [address] Mar, [facility] [place] [facility] [address] [id number] [place] [address] Mar, [facility] [place] [facility] [address] [id number] [place] [address] Mar, [facility] [place] [facility] [address] [id number] [place] [address] Mar, [facility] [place] [facility] [address] [id number] [place] [address] Mar, [facility] [place] [facility] [address] [id number] [place] [address] Mar, [facility] [place] [facility] [address] [id number] [place] [address] Mar, [facility] [place] [facility] [address] [id number] [place] [address] Mar, [facility] [place] [facility] [address] [id number] [place] [address] Mar, [facility] [place] [facility] [address] [id number] [place] [address] Mar, [facility] [place] [facility] [address] [id number] [place] [address] Mar, [facility] [place] [facility] [address] [id number] [place] [address] Mar, [facility] [place] [facility] [address] [id number] [place] [address] Mar, [facility] [place] [facility] [address] [id number] [place] [address] Mar, [facility] [place] [facility] [address] [id number] [place] [address] Feb, [facility] [place] [facility] [address] [id number] [place] [address] Feb, [facility] [place] [facility] [address] [id number], [place] [address] Feb, [facility] [place] [facility] [address] [id number], [place] [address] Feb, [facility] [place] [facility] [address] [id number] [place] [address] Feb, [facility] [place] [facility] [address] [id number] [place] [address] Feb, [facility] [place] [facility] [address] [id number] [place] [address] Jan, [facility] [place] [facility] [address] [id number] [place] [address] 28 Jan, 2013 [facility] [place] [facility] [address] [id number] [place] [address] 08 Jan, 2013 [facility] [place] [facility] [address] [id number] [place] [address] 08 Jan, 2013 [facility] [place] [facility] [address] [id number] [place] [address] Jan, 2013 [facility] [place] [facility] [address] [id number] [place] [address] Jan, 2013 [facility] [place] [facility] [address] [id number] [place] [address] 29 Dec, 2013 [facility] [place] [facility] [address] [id number] [place] [address] 29 Dec, 2013 [facility] [place] [facility] [address] [id number] [place] [address] 26 Dec, 2013 [facility] [place] [facility] [address] [id number] [place] [address] 11 Sep, 2013 [facility] [place] [facility] [address] [id number] [place] [address] 11 Dec, 2013 [facility] [place] [facility] [address] [id number] [place] [address] 08 Sep, 2013 [facility] [place] [facility] [address] [id number] [place] [address] 08 Sep, 2013 [facility] [place] [facility] [address] [id number] [place] [address] 08 Sep, 2013 [facility] [place] [facility] [address] [id number] [place] [address] 08 Sep, 2013 [facility] [place] [facility] [address] [id number] [place] [address] 04 Sep, 2013 [facility] [place] [facility] [address] [id number] [place] [address] Dec, [facility] [place] [facility] [address] [id number] [place] [address] Nov, [facility] [place] [facility] [address] [id number] [place] [address] Nov, [facility] [place] [facility] [address] [id number] [place] [address] Nov, [facility] [place] [facility] [address] [id number] [place] [address] Nov, [facility] [place] [facility] [address] [id number] [place] [address] Nov, [facility] [place] [facility] [address] [id number] [place] [address] Nov, [facility] [place] [facility] [address] [id number] [place] [address] Nov, [facility] [place] [facility] [address] [id number] [place] [address] Nov, [facility] [place] [facility] [address] [id number] [place] [address] Nov, [facility] [place] [facility] [address] [id number] [place] [address] Nov, [facility] [place] [facility] [address] [id number] [place] [address] Oct, [facility] [place] [facility] [address] [id number] [place] [address] Oct, [facility] [place] [facility] [address] [id number] [place] [address] Oct, [facility] [place] [facility] [address] [id number] [place] [address] Oct, [facility] [place] [facility] [address] [id number] [place] [address] Oct, [facility] [place] [facility] [address] [id number] [place] [address] Oct, [facility] [place] [facility] [address] [id number] [place] [address] Oct, [facility] [place] [facility] [address] [id number] [place] [address] Oct, [facility] [place] [facility] [address] [id number] [place] [address] Oct, [facility] [place] [facility] [address] [id number] [place] [address] Oct, [facility] [place] [facility] [address] [id number] [place] [address] Oct, [facility] [place] [facility] [address] [id number] [place] [address] Oct, [facility] [place] [facility] [address] [id number] [place] [address] Oct, [facility] [place] [facility] [address] [id number] [place] [address] Sep, [facility] [place] [facility] [address] [id number] [place] [address] Sep, [facility] [place] [facility] [address] [id number] [place] [address] Sep, [facility] [place] [facility] [address] [id number] [place] [address] Sep, [facility] [place] [facility] [address] [id number] [place] [address] August, [facility] [place] [facility] [address] [id number] [place] [address] August, [facility] [place] [facility] [address] [id number] [place] [address] August, [facility] [place] [facility] [address] [id number] [place] [address] August, [facility] [place] [facility] [address] [id number] [place] [address] August, [facility] [place] [facility] [address] [id number] [place] [address] August, [facility] [place] [facility] [address] [id number] [place] [address] August, [facility] [place] [facility] [address] [id number] [place] [address] August, [facility] [place] [facility] [address] [id number] [place] [address] Jul, [facility] [place] [facility] [address] [id number] [place] [address] Jul, [facility] [place] [facility] [address] [id number] [place] [address] Jun, [facility] [place] [facility] [address] [id number] [place] [address] Jun, [facility] [place] [facility] [address] [id number] [place] [address] Jun, [facility] [place] [facility] [address] [id number] [place] [address] Jun, [facility] [place] [facility] [address] [id number] [place] [address] Jun, [facility] [place] [facility] [address] [id number] [place] [address] Jun, [facility] [place] [facility] [address] [id number] [place] [address] May, [facility] [place] [facility] [address] [id number] [place] [address] May, [facility] [place] [facility] [address] [id number] [place] [address] 14 May, 2013 [facility] [place] [facility] [address] [id number] [place] [address] 14 May, 2013 [facility] [place] [facility] [address] [id number] [place] [address] May, [facility] [place] [facility] [address] [id number] [place] [address] May, [facility] [place] [facility] [address] [id number] [place] [address] Apr, [facility] [place] [facility] [address] [id number], [place] [address] Apr, [facility] [place] [facility] [address] [id number] [place] [address] 15 Feb, 2013 [facility] [place] [facility] [address] [id number] [place] [address] 15 Feb, 2013 [facility] [place] [facility] [address] [id number], [place] [address] 15 Feb, 2013 [facility] [place] [facility] [address] [id number], [place] [address] 15 Feb, 2013 [facility] [place] [facility] [address] [id number], [place] [address] Feb, [facility] [place] [facility] [address] [id number], [place] [address] Feb, [facility] [place] [facility] [address] [id number], [place] [address] Feb, [facility] [place] [facility] [address] [id number], [place] [address] Feb, [facility] [place] [facility] [address] [id number], [place] [address] 08 Feb, 2013 [facility] [place] [facility] [address] [id number], [place] [address] Jan, [facility] [place] [facility] [address] [id number], [place] [address] Jan, [facility] [place] [facility] [address] [id number] [place] [address] Jan, [facility] [address] [id number] [place] [address] Jan, [facility] [place] [facility] [address] [id number] [place] [address] Jan, [facility] [address] [id number] [place] [address] Jan, [facility] [place] [facility] [address] [id number] [place] [address] 17 Dec, 2012 [facility] [address] [id number] [place] [address] Dec, [facility] [address] [id number] [place] [address] 05 Dec, 2012 [facility] [address] [id number] [place] [address] Dec, [facility] [address] [id number] [place] [address] Oct, [facility] [place] [facility] [address] [id number] [place] [address] Oct, [facility] [address] [id number] [place] [address] Oct, [facility] [place] [facility] [address] [id number] [place] [address] Oct, [facility] [place] [facility] [address] [id number] [place] [address] Oct, [facility] [place] [facility] [address] [id number] [place] [address] Sep, [facility] [place] [facility] [address] [id number] [place] [address] August, [facility] [place] [facility] [address] [id number] [place] [address] August, [facility] [address] [id number] [place] [address] August, [facility] [address] [id number] [place] [address] August, [facility] [address] [id number] [place] [address] August, [facility] [address] [id number] [place] [address] August, [facility] [address] [id number] [place] [address] August, [facility] [address] [id number] [place] [address] August, [facility] [address] [id number] [place] [address] August, [facility] [address] [id number] [place] [address] August, [facility] [address] [id number] [place] [address] August, [facility] [address] [id number] [place] [address] August, [facility] [address] [id number] [place] [address] Jun, [facility] [place] [facility] [address] [id number] [place] [address] Jun, [facility] [place] [facility] [address] [id number] [place] [address] Jun, [facility] [place] [facility] [address] [id number] [place] [address] May, [facility] [place] [facility] [address] [id number] [place] [address] May, [facility] [place] [facility] [address] [id number] [place] [address] Mar, [facility] [address] [id number] [place] [address] Mar, [facility] [place] [facility] [address] [id number] [place] [address] Feb, [facility] [place] [facility] [address] [id number] [place] [address] Feb, [facility] [place] [facility] [address] [id number] [place] [address] Feb, [facility] [place] [facility] [address] [id number] [place] [address] Feb, [facility] [place] [facility] [address] [id number] [place] [address] Dec, [facility] [place] [facility] [address] [id number] [place] [address] August, [facility] [place] [facility] [address] [id number] [place] [address] Jul, [facility] [place] [facility] [address] [id number] [place] [address] 05 Jul, 2011 [facility] [place] [facility] [address] [facility] [id number] [place] [address] Jun, [facility] [place] [facility] [address] [id number] [place] [address] Jun, [facility] [place] [facility] [address] [id number] [place] [address] Jun, [facility] [place] [facility] [address] [id number] [place] [address] Jun, [facility] [place] [facility] [address] [id number] [place] [address] Jun, [facility] [place] [facility] [address] [facility] [id number] [place] [address] May, [facility] [address] [facility] [id number], [place] [address] May, [facility] [address] [facility] [id number], [place] [address] May, [facility] [address] [facility] [id number], [place] [address] May, [facility] [address] [facility] [id number], [place] [address] Apr, [facility] [address] [facility] [id number], [place] [address] Apr, [facility] [address] [facility] [id number], [place] [address] Apr, [facility] [address] [facility] [id number], [place] [address] Mar, [facility] [address] [facility] [id number], [place] [address] Mar, [facility] [address] [facility] [id number], [place] [address] Mar, [facility] [address] [id number], [place] [address] Mar, [facility] [address] [id number], [place] [address] May, [facility] [address] [facility] [id number], [place] [address] Feb, [facility] [address] [facility] [id number], [place] [address] Feb, [facility] [address] [facility] [id number], [place] [address] Jan, [facility] [address] [facility] [id number], [place] [address] Jan, IMMUNIZATIONS No Known Immunizations SOCIAL HISTORY Never Assessed REASON FOR VISIT Medication refill request PLAN OF CARE VITAL SIGNS MEDICATIONS Medication Instructions Dosage Frequency Start Date End Date Duration Status Xanax 1 MG Orally Twice a day [...]
--- OUTSIDE RECORDS SUMMARY | 2018-09-19 01:25 | XMS REPORT ---
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 Name Role Phone SAMMY ARZATE Unavailable PROBLEMS Type Condition ICD9-CM Code OHH00-ZQ Code Onset Dates Condition Status SNOMED Code Problem 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 Active 320290980 Problem Screening, lipid Z13.220 Active 629387041 Problem Shortness of breath R06.02 Active 097658430 Problem Benign prostatic hyperplasia, unspecified whether lower urinary tract symptoms present N40.0 Active 155921021 Problem Osteoarthritis, unspecified osteoarthritis type, unspecified site M19.90 Active 517006843 Problem 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 Active 126155492 Problem Gastroesophageal reflux disease without esophagitis K21.9 Active 737176887 Problem Other chronic pain G89.29 Active 51530609 ALLERGIES No Information ENCOUNTERS Encounter Location Date Diagnosis [place] [id number] [place] [address] 08 Jan, 2018 [place] [id number] [place] [address] 18 Dec, 2017 Osteoarthritis, unspecified osteoarthritis type, unspecified site M19.90 [facility] [id number] [place] [address] 14 Dec, 2017 [facility] [id number] [place] [address] Nov, Osteoarthritis, unspecified osteoarthritis type, unspecified site M19.90 [facility] [id number] [place] [address] 14 Nov, 2017 Shortness of breath R06.02 [place] [id number] [place] [address] Nov, [facility] [address] [address] Nov, [facility] [address] [place] [address] Oct, Osteoarthritis, unspecified osteoarthritis type, unspecified site M19.90 [facility] [address] [place] [address] Sep, [facility] [address] [place] [address] Sep, Osteoarthritis, unspecified osteoarthritis type, unspecified site M19.90 [place] [id number] [place] [address] August, Other chronic pain G89.29 and Other specified personal risk factors, not elsewhere classified Z91.89 [place] [id number] [place] [address] August, Osteoarthritis, unspecified osteoarthritis type, unspecified site M19.90 [facility] [address] [place] [address] Jul, Osteoarthritis, unspecified osteoarthritis type, unspecified site M19.90 [facility] [address] [address] Jun, Osteoarthritis, unspecified osteoarthritis type, unspecified site M19.90 [facility] [address] [address] Jun, [facility] [id number] [address] Jun, Osteoarthritis, unspecified osteoarthritis type, unspecified site M19.90 [facility] [address] [address] May, [facility] [address] [address] May, Benign prostatic hyperplasia, unspecified whether lower urinary tract symptoms present N40.0 [place] [id number] [place] [address] May, Osteoarthritis, unspecified osteoarthritis type, unspecified site M19.90 [place] [id number] [place] [address] May, [place] [id number] [place] [address] Apr, Other chronic pain G89.29 ; Family history of diabetes mellitus Z83.3 ; Forgetfulness R68.89 ; History of multiple concussions Z87.820 ; Gastroesophageal reflux disease without esophagitis K21.9 and Screening, lipid Z13.220 [place] [id number] [place] [address] Apr, Other chronic pain G89.29 ; Forgetfulness R68.89 ; History of multiple concussions Z87.820 ; Gastroesophageal reflux disease without esophagitis K21.9 ; Screening, lipid Z13.220 and Family history of diabetes mellitus Z83.3 [place] [id number] [place] [address] Apr, Osteoarthritis, unspecified osteoarthritis type, unspecified site M19.90 [place] [address] [place] [address] Apr, Osteoarthritis, unspecified osteoarthritis type, unspecified site M19.90 [place] [id number] [place] [address] Apr, [place] [id number] [place] [address] Mar, Osteoarthritis, unspecified osteoarthritis type, unspecified site M19.90 [place] [address] [place] [address] Feb, Osteoarthritis, unspecified osteoarthritis type, unspecified site M19.90 [place] [id number] [place] [address] Jan, Osteoarthritis, unspecified osteoarthritis type, unspecified site M19.90 [facility] [id number] [place] [address] Dec, Osteoarthritis, unspecified osteoarthritis type, unspecified site M19.90 [facility] [id number] [place] [address] Dec, [place] [id number] [place] [address] Nov, Encounter for screening for lipid disorder Z13.220 [place] [id number] [place] [address] Nov, Osteoarthritis, unspecified osteoarthritis type, unspecified site M19.90 ; Encounter for screening for lipid disorder Z13.220 and Other chronic pain G89.29 [place] [id number] [place] [address] Nov, Osteoarthritis, unspecified osteoarthritis type, unspecified site M19.90 [place] [id number] [place] [address] Nov, [place] [id number] [place] [address] Nov, [place] [id number] [place] [address] Oct, Osteoarthritis, unspecified osteoarthritis type, unspecified site M19.90 [place] [id number] [place] [address] Oct, Gastroesophageal reflux disease without esophagitis K21.9 [facility] [id number] [place] [address] Sep, Osteoarthritis, unspecified osteoarthritis type, unspecified site M19.90 [place] [id number] [place] [address] August, Osteoarthritis, unspecified osteoarthritis type, unspecified site M19.90 [facility] [id number] [place] [address] August, Osteoarthritis, unspecified osteoarthritis type, unspecified site M19.90 [facility] [id number] [place] [address] Jul, Osteoarthritis, unspecified osteoarthritis type, unspecified site M19.90 and Gastroesophageal reflux disease without esophagitis K21.9 [place] [id number] [place] [address] Jul, Osteoarthritis, unspecified osteoarthritis type, unspecified site M19.90 [place] [id number] [place] [address] Jun, Ventral hernia without obstruction or gangrene K43.9 [place] [id number] [place] [address] Jun, Osteoarthritis, unspecified osteoarthritis type, unspecified site M19.90 [place] [id number] [place] [address] May, [place] [id number] [place] [address] May, Osteoarthritis, unspecified osteoarthritis type, unspecified site M19.90 [place] [address] [place] [address] Apr, Osteoarthritis, unspecified osteoarthritis type, unspecified site M19.90 [place] [id number] [place] [address] Mar, [place] [id number] [place] [address] Mar, Osteoarthritis, unspecified osteoarthritis type, unspecified site M19.90 and Lumbago with sciatica, left side M54.42 [place] [id number] [place] [address] Feb, [place] [address] [address] Feb, [facility] [address] [place] [address] Feb, Osteoarthritis, unspecified osteoarthritis type, unspecified site M19.90 [facility] [address] [place] [address] Feb, [facility] [id number] [place] [address] Feb, Low back pain M54.5 and Other chronic pain G89.29 [place] [id number] [place] [address] Feb, [place] [id number] [place] [address] Jan, [place] [id number] [place] [address] 05 Jan, 2016 [facility] [id number] [place] [address] 24 Dec, 2015 Lumbago with sciatica, left side M54.42 [place] [id number] [place] [address] 15 Dec, 2015 Irritable bowel syndrome with both constipation and diarrhea K58.0 ; Screening, lipid Z13.220 ; Nocturia R35.1 ; Family history of diabetes mellitus Z83.3 and Dysuria R30.0 [place] [address] [place] [address] 14 Dec, 2015 Irritable bowel syndrome with both constipation and diarrhea K58.0 ; Nocturia R35.1 ; Family history of diabetes mellitus Z83.3 ; Dysuria R30.0 and Screening, lipid Z13.220 [place] [address] [place] [address] 12 Dec, 2015 [facility] [id number] [place] [address] 07 Dec, 2015 [facility] [id number] [place] [address] Dec, Pain with swallowing R13.10 [facility] [id number] [place] [address] 24 Nov, 2015 [facility] [id number] [place] [address] Nov, [facility] [id number] [place] [address] Oct, [facility] [address] [address] Sep, [facility] [id number] [place] [address] Sep, Osteoarthritis, unspecified osteoarthritis type, unspecified site M19.90 [facility] [id number] [place] [address] Sep, Back pain M54.9 [facility] [id number] [place] [address] Sep, Lumbago with sciatica, right side M54.41 and Bilateral impacted cerumen H61.23 [facility] [id number] [place] [address] Sep, [facility] [id number] [place] [address] August, Bronchitis J40 [facility] [id number] [place] [address] August, [facility] [id number] [place] [address] August, [facility] [id number] [place] [address] August, [facility] [address] [address] Jul, [facility] [id number] [place] [address] Jul, Back pain M54.[address] [facility] [address] [address] Jun, Degenerative disc disease at L5-S1 level M51.36 and Bronchitis J40 [facility] [id number] [place] [address] Jun, [facility] [id number] [place] [address] May, [facility] [id number] [place] [address] Apr, [facility] [id number] [place] [address] Mar, [facility] [id number] [place] [address] Mar, [facility] [address] [place] [address] Feb, [facility] [address] [address] Jan, [facility] [address] [address] Dec, [facility] [id number] [place] [address] Nov, [facility] [address] [place] [address] Oct, [facility] [address] [place] [address] Oct, Right shoulder pain 719.41 [facility] [address] [address] Sep, [facility] [address] [facility] [id number] [address] Sep, Vertigo 780.4 and Elbow fracture, right 812.40 [facility] [address] [facility] [id number] [place] [address] Sep, [facility] [address] [place] [address] August, [facility] [address] [facility] [id number] [address] Jul, [facility] [address] [facility] [id number] [place] [address] Jul, [facility] [id number] [place] [address] Jun, [facility] [address] [place] [address] Jun, [facility] [id number] [place] [address] Jun, [facility] [id number] [place] [address] Jun, [facility] [address] [place] [address] Jun, [facility] [address] [address] Jun, [facility] [address] [facility] [id number] [address] May, [facility] [address] [facility] [id number] [place] [address] May, [facility] [address] [facility] [id number] [place] [address] May, [facility] [id number] [place] [address] May, [facility] [place] [facility] [address] [id number] [place] [address] May, [facility] [place] [facility] [address] [id number] [place] [address] May, [facility] [place] [facility] [address] [id number] [place] [address] Apr, [facility] [place] [facility] [address] [id number] [place] [address] Apr, [facility] [place] [facility] [address] [id number] [place] [address] Apr, [facility] [place] [facility] [address] [id number] [place] [address] Apr, [facility] [place] [facility] [address] [id number] [place] [address] Apr, [facility] [place] [facility] [address] [id number] [place] [address] Apr, [facility] [place] [facility] [address] [id number] [place] [address] Apr, [facility] [place] [facility] [address] [id number] [place] [address] Mar, [facility] [place] [facility] [address] [id number] [place] [address] Mar, [facility] [place] [facility] [address] [id number] [place] [address] Mar, [facility] [place] [facility] [address] [id number] [place] [address] Mar, [facility] [place] [facility] [address] [id number] [place] [address] Mar, [facility] [place] [facility] [address] [id number] [place] [address] Mar, [facility] [place] [facility] [address] [id number] [place] [address] Mar, [facility] [place] [facility] [address] [id number] [place] [address] Mar, [facility] [place] [facility] [address] [id number] [place] [address] Mar, [facility] [place] [facility] [address] [id number] [place] [address] Mar, [facility] [place] [facility] [address] [id number] [place] [address] Mar, [facility] [place] [facility] [address] [id number] [place] [address] Mar, [facility] [place] [facility] [address] [id number] [place] [address] Mar, [facility] [place] [facility] [address] [id number] [place] [address] Mar, [facility] [place] [facility] [address] [id number] [place] [address] Mar, [facility] [place] [facility] [address] [id number] [place] [address] Feb, [facility] [place] [facility] [address] [id number] [place] [address] Feb, [facility] [place] [facility] [address] [id number] [address] Feb, [facility] [place] [facility] [address] [id number] [address] Feb, [facility] [place] [facility] [address] [id number] [place] [address] Feb, [facility] [place] [facility] [address] [id number] [place] [address] Feb, [facility] [place] [facility] [address] [id number] [place] [address] Jan, [facility] [place] [facility] [address] [id number] [place] [address] 28 Jan, 2013 [facility] [place] [facility] [address] [id number] [place] [address] 08 Jan, 2013 [facility] [place] [facility] [address] [id number] [place] [address] 08 Jan, 2013 [facility] [place] [facility] [address] [id number] [place] [address] Jan, 2013 [facility] [place] [facility] [address] [id number] [place] [address] Jan, 2013 [facility] [place] [facility] [address] [id number] [place] [address] 29 Dec, 2013 [facility] [place] [facility] [address] [id number] [place] [address] 29 Dec, 2013 [facility] [place] [facility] [address] [id number] [place] [address] 26 Dec, 2013 [facility] [place] [facility] [address] [id number] [place] [address] 11 Sep, 2013 [facility] [place] [facility] [address] [id number] [place] [address] 11 Dec, 2013 [facility] [place] [facility] [address] [id number] [place] [address] 08 Sep, 2013 [facility] [place] [facility] [address] [id number] [place] [address] 08 Sep, 2013 [facility] [place] [facility] [address] [id number] [place] [address] 08 Sep, 2013 [facility] [place] [facility] [address] [id number] [place] [address] 08 Sep, 2013 [facility] [place] [facility] [address] [id number] [place] [address] 04 Sep, 2013 [facility] [place] [facility] [address] [id number] [place] [address] Dec, [facility] [place] [facility] [address] [id number] [place] [address] Nov, [facility] [place] [facility] [address] [id number] [place] [address] Nov, [facility] [place] [facility] [address] [id number] [place] [address] Nov, [facility] [place] [facility] [address] [id number] [place] [address] Nov, [facility] [place] [facility] [address] [id number] [place] [address] Nov, [facility] [place] [facility] [address] [id number] [place] [address] Nov, [facility] [place] [facility] [address] [id number] [place] [address] Nov, [facility] [place] [facility] [address] [id number] [place] [address] Nov, [facility] [place] [facility] [address] [id number] [place] [address] Nov, [facility] [place] [facility] [address] [id number] [place] [address] Nov, [facility] [place] [facility] [address] [id number] [place] [address] Oct, [facility] [place] [facility] [address] [id number] [place] [address] Oct, [facility] [place] [facility] [address] [id number] [place] [address] Oct, [facility] [place] [facility] [address] [id number] [place] [address] Oct, [facility] [place] [facility] [address] [id number] [place] [address] Oct, [facility] [place] [facility] [address] [id number] [place] [address] Oct, [facility] [place] [facility] [address] [id number] [place] [address] Oct, [facility] [place] [facility] [address] [id number] [place] [address] Oct, [facility] [place] [facility] [address] [id number] [place] [address] Oct, [facility] [place] [facility] [address] [id number] [place] [address] Oct, [facility] [place] [facility] [address] [id number] [place] [address] Oct, [facility] [place] [facility] [address] [id number] [place] [address] Oct, [facility] [place] [facility] [address] [id number] [place] [address] Oct, [facility] [place] [facility] [address] [id number] [place] [address] Sep, [facility] [place] [facility] [address] [id number] [place] [address] Sep, [facility] [place] [facility] [address] [id number] [place] [address] Sep, [facility] [place] [facility] [address] [id number] [place] [address] Sep, [facility] [place] [facility] [address] [id number] [place] [address] August, [facility] [place] [facility] [address] [id number] [place] [address] August, [facility] [place] [facility] [address] [id number] [place] [address] August, [facility] [place] [facility] [address] [id number] [place] [address] August, [facility] [place] [facility] [address] [id number] [place] [address] August, [facility] [place] [facility] [address] [id number] [place] [address] August, [facility] [place] [facility] [address] [id number] [place] [address] August, [facility] [place] [facility] [address] [id number] [place] [address] August, [facility] [place] [facility] [address] [id number] [place] [address] Jul, [facility] [place] [facility] [address] [id number] [place] [address] Jul, [facility] [place] [facility] [address] [id number] [place] [address] Jun, [facility] [place] [facility] [address] [id number] [place] [address] Jun, [facility] [place] [facility] [address] [id number] [place] [address] Jun, [facility] [place] [facility] [address] [id number] [place] [address] Jun, [facility] [place] [facility] [address] [id number] [place] [address] Jun, [facility] [place] [facility] [address] [id number] [place] [address] Jun, [facility] [place] [facility] [address] [id number] [place] [address] May, [facility] [place] [facility] [address] [id number] [place] [address] May, [facility] [place] [facility] [address] [id number] [place] [address] 14 May, 2013 [facility] [place] [facility] [address] [id number] [place] [address] 14 May, 2013 [facility] [place] [facility] [address] [id number] [place] [address] May, [facility] [place] [facility] [address] [id number] [place] [address] May, [facility] [place] [facility] [address] [id number] [place] [address] Apr, [facility] [place] [facility] [address] [id number] [address] Apr, [facility] [place] [facility] [address] [id number] [place] [address] 15 Feb, 2013 [facility] [place] [facility] [address] [id number] [place] [address] 15 Feb, 2013 [facility] [place] [facility] [address] [id number] [address] 15 Feb, 2013 [facility] [place] [facility] [address] [id number] [address] 15 Feb, 2013 [facility] [place] [facility] [address] [id number] [address] Feb, [facility] [place] [facility] [address] [id number] [address] Feb, [facility] [place] [facility] [address] [id number], [place] [address] Feb, [facility] [place] [facility] [address] [id number] [address] Feb, [facility] [place] [facility] [address] [id number] [address] 08 Feb, 2013 [facility] [place] [facility] [address] [id number] [address] Jan, [facility] [place] [facility] [address] [id number] [address] Jan, [facility] [place] [facility] [address] [id number] [place] [address] Jan, [facility] [address] [id number] [place] [address] Jan, [facility] [place] [facility] [address] [id number] [place] [address] Jan, [facility] [address] [id number] [place] [address] Jan, [facility] [place] [facility] [address] [id number] [place] [address] 17 Dec, 2012 [facility] [address] [id number] [place] [address] Dec, [facility] [address] [id number] [place] [address] 05 Dec, 2012 [facility] [address] [id number] [place] [address] Dec, [facility] [address] [id number] [place] [address] Oct, [facility] [place] [facility] [address] [id number] [place] [address] Oct, [facility] [address] [id number] [place] [address] Oct, [facility] [place] [facility] [address] [id number] [place] [address] Oct, [facility] [place] [facility] [address] [id number] [place] [address] Oct, [facility] [place] [facility] [address] [id number] [place] [address] Sep, [facility] [place] [facility] [address] [id number] [place] [address] August, [facility] [place] [facility] [address] [id number] [place] [address] August, [facility] [address] [id number] [place] [address] August, [facility] [address] [id number] [place] [address] August, [facility] [address] [id number] [place] [address] August, [facility] [address] [id number] [place] [address] August, [facility] [address] [id number] [place] [address] August, [facility] [address] [id number] [place] [address] August, [facility] [address] [id number] [place] [address] August, [facility] [address] [id number] [place] [address] August, [facility] [address] [id number] [place] [address] August, [facility] [address] [id number] [place] [address] August, [facility] [address] [id number] [place] [address] Jun, [facility] [place] [facility] [address] [id number] [place] [address] Jun, [facility] [place] [facility] [address] [id number] [place] [address] Jun, [facility] [place] [facility] [address] [id number] [place] [address] May, [facility] [place] [facility] [address] [id number] [place] [address] May, [facility] [place] [facility] [address] [id number] [place] [address] Mar, [facility] [address] [id number] [place] [address] Mar, [facility] [place] [facility] [address] [id number] [place] [address] Feb, [facility] [place] [facility] [address] [id number] [place] [address] Feb, [facility] [place] [facility] [address] [id number] [place] [address] Feb, [facility] [place] [facility] [address] [id number] [place] [address] Feb, [facility] [place] [facility] [address] [id number] [place] [address] Dec, [facility] [place] [facility] [address] [id number] [place] [address] August, [facility] [place] [facility] [address] [id number] [place] [address] Jul, [facility] [place] [facility] [address] [id number] [place] [address] 05 Jul, 2011 [facility] [place] [facility] [address] [facility] [id number] [place] [address] Jun, [facility] [place] [facility] [address] [id number] [place] [address] Jun, [facility] [place] [facility] [address] [id number] [place] [address] Jun, [facility] [place] [facility] [address] [id number] [place] [address] Jun, [facility] [place] [facility] [address] [id number] [place] [address] Jun, [facility] [place] [facility] [address] [facility] [id number] [place] [address] May, [facility] [address] [facility] [id number] [address] May, [facility] [address] [facility] [id number] [place] [address] May, [facility] [address] [facility] [id number] [place] [address] May, [facility] [address] [facility] [id number] [place] [address] Apr, [facility] [address] [facility] [id number] [place] [address] Apr, [facility] [address] [facility] [id number] [place] [address] Apr, [facility] [address] [facility] [id number] [address] Mar, [facility] [address] [facility] [id number][place] [address] Mar, [facility] [address] [facility] [id number][place] [address] Mar, [facility] [address] [facility] [id number] [address] Mar, [facility] [address] [id number], [place] [address] May, [facility] [address] [facility] [id number][place] [address] Feb, [facility] [address] [facility] [id number], [place] [address] Feb, [facility] [address] [facility] [id number][place] [address] Jan, [facility] [address] [facility] [id number][place] [address] Jan, IMMUNIZATIONS No Known Immunizations SOCIAL HISTORY Never Assessed REASON FOR VISIT Controlled Med Refill 01/13/18 PLAN OF CARE VITAL SIGNS MEDICATIONS Medication Instructions Dosage Frequency Start Date End Date Duration Status Oxycodone HCl 10 MG Orally Once a day 1 tablet 24h 15 Dec, 2017 28 days Active RESULTS No Results PROCEDURES [...]
--- OUTSIDE RECORDS SUMMARY | 2018-09-19 01:26 | XMS REPORT ---
Author Author SAMMY ARZATE Organization [facility] Address [address] [place] [address] Care Team Providers Care Clinical Systems Analyst Name Role Phone SAMMY ARZATE Unavailable PROBLEMS Type Condition ICD9-CM Code QQB94-GV Code Onset Dates Condition Status SNOMED Code Problem 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 Active 041703625 Problem Screening, lipid Z13.220 Active 852057130 Problem Shortness of breath R06.02 Active 276501901 Problem Benign prostatic hyperplasia, unspecified whether lower urinary tract symptoms present N40.0 Active 268077646 Problem Osteoarthritis, unspecified osteoarthritis type, unspecified site M19.90 Active 990705526 Problem 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 Active 732472163 Problem Gastroesophageal reflux disease without esophagitis K21.9 Active 621141620 Problem Other chronic pain G89.29 Active 29998058 ALLERGIES No Information ENCOUNTERS Encounter Location Date Diagnosis [place] [id number] [place] [id number] 08 Jan, 2018 [place] [id number] [place] [address] 18 Dec, 2017 Osteoarthritis, unspecified osteoarthritis type, unspecified site M19.90 [facility] [id number] [place] [address] 14 Dec, 2017 [facility] [id number] [place] [address] Nov, Osteoarthritis, unspecified osteoarthritis type, unspecified site M19.90 [facility] [id number] [place] [address] 14 Nov, 2017 Shortness of breath R06.02 [place] [id number] [place] [address] Nov, [facility] [address], [place] [address] Nov, [facility] [id number] [place] [address] Oct, Osteoarthritis, unspecified osteoarthritis type, unspecified site M19.90 [facility] [id number] [place] [address] Sep, [facility] [id number] [place] [address] Sep, Osteoarthritis, unspecified osteoarthritis type, unspecified site M19.90 [place] [id number] [place] [address] August, Other chronic pain G89.29 and Other specified personal risk factors, not elsewhere classified Z91.89 [place] [id number] [place] [address] August, Osteoarthritis, unspecified osteoarthritis type, unspecified site M19.90 [facility] [id number] [place] [address] Jul, Osteoarthritis, unspecified osteoarthritis type, unspecified site M19.90 [facility] [address], [place] [address] Jun, Osteoarthritis, unspecified osteoarthritis type, unspecified site M19.90 [facility] [address], [place] [address] Jun, [facility] [id number], [place] [address] Jun, Osteoarthritis, unspecified osteoarthritis type, unspecified site M19.90 [facility] [address], [place] [address] May, [facility] [address], [place] [address] May, Benign prostatic hyperplasia, unspecified whether lower urinary tract symptoms present N40.0 [place] [id number] [place] [address] May, Osteoarthritis, unspecified osteoarthritis type, unspecified site M19.90 [place] [id number] [place] [address] May, [place] [id number] [place] [address] Apr, Other chronic pain G89.29 ; Family history of diabetes mellitus Z83.3 ; Forgetfulness R68.89 ; History of multiple concussions Z87.820 ; Gastroesophageal reflux disease without esophagitis K21.9 and Screening, lipid Z13.220 [place] [id number] [place] [address] Apr, Other chronic pain G89.29 ; Forgetfulness R68.89 ; History of multiple concussions Z87.820 ; Gastroesophageal reflux disease without esophagitis K21.9 ; Screening, lipid Z13.220 and Family history of diabetes mellitus Z83.3 [place] [id number] [place] [address] Apr, Osteoarthritis, unspecified osteoarthritis type, unspecified site M19.90 [place] [id number] [place] [address] Apr, Osteoarthritis, unspecified osteoarthritis type, unspecified site M19.90 [place] [id number] [place] [address] Apr, [place] [id number] [place] [address] Mar, Osteoarthritis, unspecified osteoarthritis type, unspecified site M19.90 [place] [id number] [place] [address] Feb, Osteoarthritis, unspecified osteoarthritis type, unspecified site M19.90 [place] [id number] [place] [address] Jan, Osteoarthritis, unspecified osteoarthritis type, unspecified site M19.90 [facility] [id number] [place] [address] Dec, Osteoarthritis, unspecified osteoarthritis type, unspecified site M19.90 [facility] [id number] [place] [address] Dec, [place] [id number] [place] [address] Nov, Encounter for screening for lipid disorder Z13.220 [place] [id number] [place] [address] Nov, Osteoarthritis, unspecified osteoarthritis type, unspecified site M19.90 ; Encounter for screening for lipid disorder Z13.220 and Other chronic pain G89.29 [place] [id number] [place] [address] Nov, Osteoarthritis, unspecified osteoarthritis type, unspecified site M19.90 [place] [id number] [place] [address] Nov, [place] [id number] [place] [address] Nov, [place] [id number] [place] [address] Oct, Osteoarthritis, unspecified osteoarthritis type, unspecified site M19.90 [place] [id number] [place] [address] Oct, Gastroesophageal reflux disease without esophagitis K21.9 [facility] [id number] [place] [address] Sep, Osteoarthritis, unspecified osteoarthritis type, unspecified site M19.90 [place] [id number] [place] [address] August, Osteoarthritis, unspecified osteoarthritis type, unspecified site M19.90 [facility] [id number] [place] [address] August, Osteoarthritis, unspecified osteoarthritis type, unspecified site M19.90 [facility] [id number] [place] [address] Jul, Osteoarthritis, unspecified osteoarthritis type, unspecified site M19.90 and Gastroesophageal reflux disease without esophagitis K21.9 [place] [id number] [place] [address] Jul, Osteoarthritis, unspecified osteoarthritis type, unspecified site M19.90 [place] [id number] [place] [address] Jun, Ventral hernia without obstruction or gangrene K43.9 [place] [id number] [place] [address] Jun, Osteoarthritis, unspecified osteoarthritis type, unspecified site M19.90 [place] [id number] [place] [address] May, [place] [id number] [place] [address] May, Osteoarthritis, unspecified osteoarthritis type, unspecified site M19.90 [place] [id number] [place] [address] Apr, Osteoarthritis, unspecified osteoarthritis type, unspecified site M19.90 [place] [id number] [place] [address] Mar, [place] [id number] [place] [address] Mar, Osteoarthritis, unspecified osteoarthritis type, unspecified site M19.90 and Lumbago with sciatica, left side M54.42 [place] [id number] [place] [address] Feb, [place] [address], [place] [address] Feb, [facility] [address] [place] [address] Feb, Osteoarthritis, unspecified osteoarthritis type, unspecified site M19.90 [facility] [address] [place] [address] Feb, [facility] [id number] [place] [address] Feb, Low back pain M54.5 and Other chronic pain G89.29 [place] [id number] [place] [address] Feb, [place] [id number] [place] [address] Jan, [place] [id number] [place] [address] 05 Jan, 2016 [facility] [id number] [place] [address] 24 Dec, 2015 Lumbago with sciatica, left side M54.42 [place] [id number] [place] [address] 15 Dec, 2015 Irritable bowel syndrome with both constipation and diarrhea K58.0 ; Screening, lipid Z13.220 ; Nocturia R35.1 ; Family history of diabetes mellitus Z83.3 and Dysuria R30.0 [place] [address] [place] [address] 14 Dec, 2015 Irritable bowel syndrome with both constipation and diarrhea K58.0 ; Nocturia R35.1 ; Family history of diabetes mellitus Z83.3 ; Dysuria R30.0 and Screening, lipid Z13.220 [place] [address] [place] [address] 12 Dec, 2015 [facility] [id number] [place] [address] 07 Dec, 2015 [facility] [id number] [place] [address] Dec, Pain with swallowing R13.10 [facility] [id number] [place] [address] 24 Nov, 2015 [facility] [id number] [place] [address] Nov, [facility] [id number] [place] [address] Oct, [facility] [address] [address] Sep, [facility] [id number] [place] [address] Sep, Osteoarthritis, unspecified osteoarthritis type, unspecified site M19.90 [facility] [id number] [place] [address] Sep, Back pain M54.9 [facility] [id number] [place] [address] Sep, Lumbago with sciatica, right side M54.41 and Bilateral impacted cerumen H61.23 [facility] [id number] [place] [address] Sep, [facility] [id number] [place] [address] August, Bronchitis J40 [facility] [id number] [place] [address] August, [facility] [id number] [place] [address] August, [facility] [id number] [place] [address] August, [facility] [id number] [place] [address] Jul, [facility] [id number] [place] [address] Jul, Back pain M54.9 [facility] [address], [place] [address] Jun, Degenerative disc disease at L5-S1 level M51.36 and Bronchitis J40 [facility] [id number] [place] [address] Jun, [facility] [id number] [place] [address] May, [facility] [id number] [place] [address] Apr, [facility] [id number] [place] [address] Mar, [facility] [id number] [place] [address] Mar, [facility] [address] [place] [address] Feb, [facility] [id number] [address] Jan, [facility] [address], [place] [address] Dec, [facility] [id number] [place] [address] Nov, [facility] [address] [place] [address] Oct, [facility] [address] [place] [address] Oct, Right shoulder pain 719.41 [facility] [address], [place] [address] Sep, [facility] [address] [facility] [id number] [address] Sep, Vertigo 780.4 and Elbow fracture, right 812.40 [facility] [address] [facility] [id number] [place] [address] Sep, [facility] [address] [place] [address] August, [facility] [address] [facility] [id number] [address] Jul, [facility] [address] [facility] [id number] [place] [address] Jul, [facility] [id number] [place] [address] Jun, [facility] [address] [place] [address] Jun, [facility] [id number] [place] [address] Jun, [facility] [id number] [place] [address] Jun, [facility] [address] [place] [address] Jun, [facility] [address], [place] [address] Jun, [facility] [address] [facility] [id number], [place] [address] May, [facility] [address] [facility] [id number] [place] [address] May, [facility] [address] [facility] [id number] [place] [address] May, [facility] [id number] [place] [address] May, [facility] [place] [facility] [address] [id number] [place] [address] May, [facility] [place] [facility] [address] [id number] [place] [address] May, [facility] [place] [facility] [address] [id number] [place] [address] Apr, [facility] [place] [facility] [address] [id number] [place] [address] Apr, [facility] [place] [facility] [address] [id number] [place] [address] Apr, [facility] [place] [facility] [address] [id number] [place] [address] Apr, [facility] [place] [facility] [address] [id number] [place] [address] Apr, [facility] [place] [facility] [address] [id number] [place] [address] Apr, [facility] [place] [facility] [address] [id number] [place] [address] Apr, [facility] [place] [facility] [address] [id number] [place] [address] Mar, [facility] [place] [facility] [address] [id number] [place] [address] Mar, [facility] [place] [facility] [address] [id number] [place] [address] Mar, [facility] [place] [facility] [address] [id number] [place] [address] Mar, [facility] [place] [facility] [address] [id number] [place] [address] Mar, [facility] [place] [facility] [address] [id number] [place] [address] Mar, [facility] [place] [facility] [address] [id number] [place] [address] Mar, [facility] [place] [facility] [address] [id number] [place] [address] Mar, [facility] [place] [facility] [address] [id number] [place] [address] Mar, [facility] [place] [facility] [address] [id number] [place] [address] Mar, [facility] [place] [facility] [address] [id number] [place] [address] Mar, [facility] [place] [facility] [address] [id number] [place] [address] Mar, [facility] [place] [facility] [address] [id number] [place] [address] Mar, [facility] [place] [facility] [address] [id number] [place] [address] Mar, [facility] [place] [facility] [address] [id number] [place] [address] Mar, [facility] [place] [facility] [address] [id number] [place] [address] Feb, [facility] [place] [facility] [address] [id number] [place] [address] Feb, [facility] [place] [facility] [address] [id number], [place] [address] Feb, [facility] [place] [facility] [address] [id number], [place] [address] Feb, [facility] [place] [facility] [address] [id number] [place] [address] Feb, [facility] [place] [facility] [address] [id number] [place] [address] Feb, [facility] [place] [facility] [address] [id number] [place] [address] Jan, [facility] [place] [facility] [address] [id number] [place] [address] 28 Jan, 2013 [facility] [place] [facility] [address] [id number] [place] [address] 08 Jan, 2013 [facility] [place] [facility] [address] [id number] [place] [address] 08 Jan, 2013 [facility] [place] [facility] [address] [id number] [place] [address] Jan, 2013 [facility] [place] [facility] [address] [id number] [place] [address] Jan, 2013 [facility] [place] [facility] [address] [id number] [place] [address] 29 Dec, 2013 [facility] [place] [facility] [address] [id number] [place] [address] 29 Dec, 2013 [facility] [place] [facility] [address] [id number] [place] [address] 26 Dec, 2013 [facility] [place] [facility] [address] [id number] [place] [address] 11 Sep, 2013 [facility] [place] [facility] [address] [id number] [place] [address] 11 Dec, 2013 [facility] [place] [facility] [address] [id number] [place] [address] 08 Sep, 2013 [facility] [place] [facility] [address] [id number] [place] [address] 08 Sep, 2013 [facility] [place] [facility] [address] [id number] [place] [address] 08 Sep, 2013 [facility] [place] [facility] [address] [id number] [place] [address] 08 Sep, 2013 [facility] [place] [facility] [address] [id number] [place] [address] 04 Sep, 2013 [facility] [place] [facility] [address] [id number] [place] [address] Dec, [facility] [place] [facility] [address] [id number] [place] [address] Nov, [facility] [place] [facility] [address] [id number] [place] [address] Nov, [facility] [place] [facility] [address] [id number] [place] [address] Nov, [facility] [place] [facility] [address] [id number] [place] [address] Nov, [facility] [place] [facility] [address] [id number] [place] [address] Nov, [facility] [place] [facility] [address] [id number] [place] [address] Nov, [facility] [place] [facility] [address] [id number] [place] [address] Nov, [facility] [place] [facility] [address] [id number] [place] [address] Nov, [facility] [place] [facility] [address] [id number] [place] [address] Nov, [facility] [place] [facility] [address] [id number] [place] [address] Nov, [facility] [place] [facility] [address] [id number] [place] [address] Oct, [facility] [place] [facility] [address] [id number] [place] [address] Oct, [facility] [place] [facility] [address] [id number] [place] [address] Oct, [facility] [place] [facility] [address] [id number] [place] [address] Oct, [facility] [place] [facility] [address] [id number] [place] [address] Oct, [facility] [place] [facility] [address] [id number] [place] [address] Oct, [facility] [place] [facility] [address] [id number] [place] [address] Oct, [facility] [place] [facility] [address] [id number] [place] [address] Oct, [facility] [place] [facility] [address] [id number] [place] [address] Oct, [facility] [place] [facility] [address] [id number] [place] [address] Oct, [facility] [place] [facility] [address] [id number] [place] [address] Oct, [facility] [place] [facility] [address] [id number] [place] [address] Oct, [facility] [place] [facility] [address] [id number] [place] [address] Oct, [facility] [place] [facility] [address] [id number] [place] [address] Sep, [facility] [place] [facility] [address] [id number] [place] [address] Sep, [facility] [place] [facility] [address] [id number] [place] [address] Sep, [facility] [place] [facility] [address] [id number] [place] [address] Sep, [facility] [place] [facility] [address] [id number] [place] [address] August, [facility] [place] [facility] [address] [id number] [place] [address] August, [facility] [place] [facility] [address] [id number] [place] [address] August, [facility] [place] [facility] [address] [id number] [place] [address] August, [facility] [place] [facility] [address] [id number] [place] [address] August, [facility] [place] [facility] [address] [id number] [place] [address] August, [facility] [place] [facility] [address] [id number] [place] [address] August, [facility] [place] [facility] [address] [id number] [place] [address] August, [facility] [place] [facility] [address] [id number] [place] [address] Jul, [facility] [place] [facility] [address] [id number] [place] [address] Jul, [facility] [place] [facility] [address] [id number] [place] [address] Jun, [facility] [place] [facility] [address] [id number] [place] [address] Jun, [facility] [place] [facility] [address] [id number] [place] [address] Jun, [facility] [place] [facility] [address] [id number] [place] [address] Jun, [facility] [place] [facility] [address] [id number] [place] [address] Jun, [facility] [place] [facility] [address] [id number] [place] [address] Jun, [facility] [place] [facility] [address] [id number] [place] [address] May, [facility] [place] [facility] [address] [id number] [place] [address] May, [facility] [place] [facility] [address] [id number] [place] [address] 14 May, 2013 [facility] [place] [facility] [address] [id number] [place] [address] 14 May, 2013 [facility] [place] [facility] [address] [id number] [place] [address] May, [facility] [place] [facility] [address] [id number] [place] [address] May, [facility] [place] [facility] [address] [id number] [place] [address] Apr, [facility] [place] [facility] [address] [id number], [place] [address] Apr, [facility] [place] [facility] [address] [id number] [place] [address] 15 Feb, 2013 [facility] [place] [facility] [address] [id number] [place] [address] 15 Feb, 2013 [facility] [place] [facility] [address] [id number], [place] [address] 15 Feb, 2013 [facility] [place] [facility] [address] [id number], [place] [address] 15 Feb, 2013 [facility] [place] [facility] [address] [id number], [place] [address] Feb, [facility] [place] [facility] [address] [id number], [place] [address] Feb, [facility] [place] [facility] [address] [id number], [place] [address] Feb, [facility] [place] [facility] [address] [id number], [place] [address] Feb, [facility] [place] [facility] [address] [id number], [place] [address] 08 Feb, 2013 [facility] [place] [facility] [address] [id number], [place] [address] Jan, [facility] [place] [facility] [address] [id number], [place] [address] Jan, [facility] [place] [facility] [address] [id number] [place] [address] Jan, [facility] [address] [id number] [place] [address] Jan, [facility] [place] [facility] [address] [id number] [place] [address] Jan, [facility] [address] [id number] [place] [address] Jan, [facility] [place] [facility] [address] [id number] [place] [address] 17 Dec, 2012 [facility] [address] [id number] [place] [address] Dec, [facility] [address] [id number] [place] [address] 05 Dec, 2012 [facility] [address] [id number] [place] [address] Dec, [facility] [address] [id number] [place] [address] Oct, [facility] [place] [facility] [address] [id number] [place] [address] Oct, [facility] [address] [id number] [place] [address] Oct, [facility] [place] [facility] [address] [id number] [place] [address] Oct, [facility] [place] [facility] [address] [id number] [place] [address] Oct, [facility] [place] [facility] [address] [id number] [place] [address] Sep, [facility] [place] [facility] [address] [id number] [place] [address] August, [facility] [place] [facility] [address] [id number] [place] [address] August, [facility] [address] [id number] [place] [address] August, [facility] [address] [id number] [place] [address] August, [facility] [address] [id number] [place] [address] August, [facility] [address] [id number] [place] [address] August, [facility] [address] [id number] [place] [address] August, [facility] [address] [id number] [place] [address] August, [facility] [address] [id number] [place] [address] August, [facility] [address] [id number] [place] [address] August, [facility] [address] [id number] [place] [address] August, [facility] [address] [id number] [place] [address] August, [facility] [address] [id number] [place] [address] Jun, [facility] [place] [facility] [address] [id number] [place] [address] Jun, [facility] [place] [facility] [address] [id number] [place] [address] Jun, [facility] [place] [facility] [address] [id number] [place] [address] May, [facility] [place] [facility] [address] [id number] [place] [address] May, [facility] [place] [facility] [address] [id number] [place] [address] Mar, [facility] [address] [id number] [place] [address] Mar, [facility] [place] [facility] [address] [id number] [place] [address] Feb, [facility] [place] [facility] [address] [id number] [place] [address] Feb, [facility] [place] [facility] [address] [id number] [place] [address] Feb, [facility] [place] [facility] [address] [id number] [place] [address] Feb, [facility] [place] [facility] [address] [id number] [place] [address] Dec, [facility] [place] [facility] [address] [id number] [place] [address] August, [facility] [place] [facility] [address] [id number] [place] [address] Jul, [facility] [place] [facility] [address] [id number] [place] [address] 05 Jul, 2011 [facility] [place] [facility] [address] [facility] [id number] [place] [address] Jun, [facility] [place] [facility] [address] [id number] [place] [address] Jun, [facility] [place] [facility] [address] [id number] [place] [address] Jun, [facility] [place] [facility] [address] [id number] [place] [address] Jun, [facility] [place] [facility] [address] [id number] [place] [address] Jun, [facility] [place] [facility] [address] [facility] [id number] [place] [address] May, [facility] [address] [facility] [id number], [place] [address] May, [facility] [address] [facility] [id number] [place] [address] May, [facility] [address] [facility] [id number] [place] [address] May, [facility] [address] [facility] [id number] [place] [address] Apr, [facility] [address] [facility] [id number] [place] [address] Apr, [facility] [address] [facility] [id number] [place] [address] Apr, [facility] [address] [facility] [id number], [place] [address] Mar, [facility] [address] [facility] [id number], [place] [address] Mar, [facility] [address] [facility] [id number], [place] [address] Mar, [facility] [address] [facility] [id number], [place] [address] Mar, [facility] [address] [id number], [place] [address] May, [facility] [address] [facility] [id number], [place] [address] Feb, [facility] [address] [facility] [id number], [place] [address] Feb, [facility] [address] [facility] [id number], [place] [address] Jan, [facility] [address] [facility] [id number], [place] [address] Jan, IMMUNIZATIONS No Known Immunizations SOCIAL HISTORY Never Assessed REASON FOR VISIT Controlled Med Refill 12/16/17 PLAN OF CARE VITAL SIGNS MEDICATIONS Medication Instructions Dosage Frequency Start Date End Date Duration Status Oxycodone HCl 10 MG Orally Once a day 1 tablet 24h 20 Nov, 2017 28 days Active Xanax 1 MG Orally [...]
--- OUTSIDE RECORDS SUMMARY | 2018-09-19 01:27 | XMS REPORT ---
Author Author SAMMY ARZATE Organization [facility] Address [address] [place] [address] Care Team Providers Care Feed House Supervisor Name Role Phone SAMMY ARZATE Unavailable PROBLEMS Type Condition ICD9-CM Code BWL51-LX Code Onset Dates Condition Status SNOMED Code Problem 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 Active 709216566 Problem Screening, lipid Z13.220 Active 390520221 Problem Shortness of breath R06.02 Active 992948733 Problem Benign prostatic hyperplasia, unspecified whether lower urinary tract symptoms present N40.0 Active 870176137 Problem Osteoarthritis, unspecified osteoarthritis type, unspecified site M19.90 Active 535584054 Problem 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 Active 319559103 Problem Gastroesophageal reflux disease without esophagitis K21.9 Active 234394394 Problem Other chronic pain G89.29 Active 90143813 ALLERGIES No Information ENCOUNTERS Encounter Location Date Diagnosis [place] [id number] [place] [address] 08 Jan, 2018 [place] [id number] [place] [address] 18 Dec, 2017 Osteoarthritis, unspecified osteoarthritis type, unspecified site M19.90 [facility] [id number] [place] [address] 14 Dec, 2017 [facility] [id number] [place] [address] Nov, Osteoarthritis, unspecified osteoarthritis type, unspecified site M19.90 [facility] [id number] [place] [address] 14 Nov, 2017 Shortness of breath R06.02 [place] [id number] [place] [address] Nov, [facility] [id number] [address] Nov, [facility] [id number] [place] [address] Oct, Osteoarthritis, unspecified osteoarthritis type, unspecified site M19.90 [facility] [id number] [place] [address] Sep, [facility] [id number] [place] [address] Sep, Osteoarthritis, unspecified osteoarthritis type, unspecified site M19.90 [place] [id number] [place] [address] August, Other chronic pain G89.29 and Other specified personal risk factors, not elsewhere classified Z91.89 [place] [id number] [place] [address] August, Osteoarthritis, unspecified osteoarthritis type, unspecified site M19.90 [facility] [id number] [place] [address] Jul, Osteoarthritis, unspecified osteoarthritis type, unspecified site M19.90 [facility] [id number] [address] Jun, Osteoarthritis, unspecified osteoarthritis type, unspecified site M19.90 [facility] [id number] [address] Jun, [facility] [id number] [address] Jun, Osteoarthritis, unspecified osteoarthritis type, unspecified site M19.90 [facility] [address] [address] May, [facility] [id number] [address] May, Benign prostatic hyperplasia, unspecified whether lower urinary tract symptoms present N40.0 [place] [id number] [place] [address] May, Osteoarthritis, unspecified osteoarthritis type, unspecified site M19.90 [place] [id number] [place] [address] May, [place] [id number] [place] [address] Apr, Other chronic pain G89.29 ; Family history of diabetes mellitus Z83.3 ; Forgetfulness R68.89 ; History of multiple concussions Z87.820 ; Gastroesophageal reflux disease without esophagitis K21.9 and Screening, lipid Z13.220 [place] [id number] [place] [address] Apr, Other chronic pain G89.29 ; Forgetfulness R68.89 ; History of multiple concussions Z87.820 ; Gastroesophageal reflux disease without esophagitis K21.9 ; Screening, lipid Z13.220 and Family history of diabetes mellitus Z83.3 [place] [id number] [place] [address] Apr, Osteoarthritis, unspecified osteoarthritis type, unspecified site M19.90 [place] [id number] [place] [address] Apr, Osteoarthritis, unspecified osteoarthritis type, unspecified site M19.90 [place] [id number] [place] [address] Apr, [place] [id number] [place] [address] Mar, Osteoarthritis, unspecified osteoarthritis type, unspecified site M19.90 [place] [id number] [place] [address] Feb, Osteoarthritis, unspecified osteoarthritis type, unspecified site M19.90 [place] [id number] [place] [address] Jan, Osteoarthritis, unspecified osteoarthritis type, unspecified site M19.90 [facility] [id number] [place] [address] Dec, Osteoarthritis, unspecified osteoarthritis type, unspecified site M19.90 [facility] [id number] [place] [address] Dec, [place] [id number] [place] [address] Nov, Encounter for screening for lipid disorder Z13.220 [place] [id number] [place] [address] Nov, Osteoarthritis, unspecified osteoarthritis type, unspecified site M19.90 ; Encounter for screening for lipid disorder Z13.220 and Other chronic pain G89.29 [place] [id number] [place] [address] Nov, Osteoarthritis, unspecified osteoarthritis type, unspecified site M19.90 [place] [id number] [place] [address] Nov, [place] [id number] [place] [address] Nov, [place] [id number] [place] [address] Oct, Osteoarthritis, unspecified osteoarthritis type, unspecified site M19.90 [place] [id number] [place] [address] Oct, Gastroesophageal reflux disease without esophagitis K21.9 [facility] [id number] [place] [address] Sep, Osteoarthritis, unspecified osteoarthritis type, unspecified site M19.90 [place] [id number] [place] [address] August, Osteoarthritis, unspecified osteoarthritis type, unspecified site M19.90 [facility] [id number] [place] [address] August, Osteoarthritis, unspecified osteoarthritis type, unspecified site M19.90 [facility] [id number] [place] [address] Jul, Osteoarthritis, unspecified osteoarthritis type, unspecified site M19.90 and Gastroesophageal reflux disease without esophagitis K21.9 [place] [id number] [place] [address] Jul, Osteoarthritis, unspecified osteoarthritis type, unspecified site M19.90 [place] [id number] [place] [address] Jun, Ventral hernia without obstruction or gangrene K43.9 [place] [id number] [place] [address] Jun, Osteoarthritis, unspecified osteoarthritis type, unspecified site M19.90 [place] [id number] [place] [address] May, [place] [id number] [place] [address] May, Osteoarthritis, unspecified osteoarthritis type, unspecified site M19.90 [place] [id number] [place] [address] Apr, Osteoarthritis, unspecified osteoarthritis type, unspecified site M19.90 [place] [id number] [place] [address] Mar, [place] [id number] [place] [address] Mar, Osteoarthritis, unspecified osteoarthritis type, unspecified site M19.90 and Lumbago with sciatica, left side M54.42 [place] [id number] [place] [address] Feb, [place] [id number] [address] Feb, [facility] [id number] [place] [address] Feb, Osteoarthritis, unspecified osteoarthritis type, unspecified site M19.90 [facility] [id number] [place] [address] Feb, [facility] [id number] [place] [address] Feb, Low back pain M54.5 and Other chronic pain G89.29 [place] [id number] [place] [address] Feb, [place] [id number] [place] [address] Jan, [place] [id number] [place] [address] 05 Jan, 2016 [facility] [id number] [place] [address] 24 Dec, 2015 Lumbago with sciatica, left side M54.42 [place] [id number] [place] [address] 15 Dec, 2015 Irritable bowel syndrome with both constipation and diarrhea K58.0 ; Screening, lipid Z13.220 ; Nocturia R35.1 ; Family history of diabetes mellitus Z83.3 and Dysuria R30.0 [place] [id number] [place] [address] 14 Dec, 2015 Irritable bowel syndrome with both constipation and diarrhea K58.0 ; Nocturia R35.1 ; Family history of diabetes mellitus Z83.3 ; Dysuria R30.0 and Screening, lipid Z13.220 [place] [id number] [place] [address] 12 Dec, 2015 [facility] [id number] [place] [address] 07 Dec, 2015 [facility] [id number] [place] [address] Dec, Pain with swallowing R13.10 [facility] [id number] [place] [address] 24 Nov, 2015 [facility] [id number] [place] [address] Nov, [facility] [id number] [place] [address] Oct, [facility] [address] [address] Sep, [facility] [id number] [place] [address] Sep, Osteoarthritis, unspecified osteoarthritis type, unspecified site M19.90 [facility] [id number] [place] [address] Sep, Back pain M54.9 [facility] [id number] [place] [address] Sep, Lumbago with sciatica, right side M54.41 and Bilateral impacted cerumen H61.23 [facility] [id number] [place] [address] Sep, [facility] [id number] [place] [address] August, Bronchitis J40 [facility] [id number] [place] [address] August, [facility] [id number] [place] [address] August, [facility] [id number] [place] [address] August, [facility] [id number] [address] Jul, [facility] [id number] [place] [address] Jul, Back pain M54.9 [facility] [id number] [address] Jun, Degenerative disc disease at L5-S1 level M51.36 and Bronchitis J40 [facility] [id number] [place] [address] Jun, [facility] [id number] [place] [address] May, [facility] [id number] [place] [address] Apr, [facility] [id number] [place] [address] Mar, [facility] [id number] [place] [address] Mar, [facility] [id number] [place] [address] Feb, [facility] [id number] [address] Jan, [facility] [id number] [address] Dec, [facility] [id number] [place] [address] Nov, [facility] [id number] [place] [address] Oct, [facility] [id number] [place] [address] Oct, Right shoulder pain 719.41 [facility] [id number] [address] Sep, [facility] [address] [facility] [id number] [address] Sep, Vertigo 780.4 and Elbow fracture, right 812.40 [facility] [address] [facility] [id number] [place] [address] Sep, [facility] [address] [place] [address] August, [facility] [address] [facility] [id number] [address] Jul, [facility] [address] [facility] [id number] [place] [address] Jul, [facility] [id number] [address] Jun, [facility] [id number] [address] Jun, [facility] [id number] [address] Jun, [facility] [id number] [address] Jun, [facility] [id number] [address] Jun, [facility] [address] [address] Jun, [facility] [address] [facility] [id number] [address] May, [facility] [address] [facility] [id number] [place] [address] May, [facility] [address] [facility] [id number] [place] [address] May, [facility] [id number] [address] May, [facility] [place] [facility] [address] [id number] [place] [address] May, [facility] [place] [facility] [address] [id number] [place] [address] May, [facility] [place] [facility] [address] [id number] [place] [address] Apr, [facility] [place] [facility] [address] [id number] [place] [address] Apr, [facility] [place] [facility] [address] [id number] [place] [address] Apr, [facility] [place] [facility] [address] [id number] [place] [address] Apr, [facility] [place] [facility] [address] [id number] [place] [address] Apr, [facility] [place] [facility] [address] [id number] [place] [address] Apr, [facility] [place] [facility] [address] [id number] [place] [address] Apr, [facility] [place] [facility] [address] [id number] [place] [address] Mar, [facility] [place] [facility] [address] [id number] [place] [address] Mar, [facility] [place] [facility] [address] [id number] [place] [address] Mar, [facility] [place] [facility] [address] [id number] [place] [address] Mar, [facility] [place] [facility] [address] [id number] [place] [address] Mar, [facility] [place] [facility] [address] [id number] [place] [address] Mar, [facility] [place] [facility] [address] [id number] [place] [address] Mar, [facility] [place] [facility] [address] [id number] [place] [address] Mar, [facility] [place] [facility] [address] [id number] [place] [address] Mar, [facility] [place] [facility] [address] [id number] [place] [address] Mar, [facility] [place] [facility] [address] [id number] [place] [address] Mar, [facility] [place] [facility] [address] [id number] [place] [address] Mar, [facility] [place] [facility] [address] [id number] [place] [address] Mar, [facility] [place] [facility] [address] [id number] [place] [address] Mar, [facility] [place] [facility] [address] [id number] [place] [address] Mar, [facility] [place] [facility] [address] [id number] [place] [address] Feb, [facility] [place] [facility] [address] [id number] [place] [address] Feb, [facility] [place] [facility] [address] [id number] [address] Feb, [facility] [place] [facility] [address] [id number] [place] [address] Feb, [facility] [place] [facility] [address] [id number] [place] [address] Feb, [facility] [place] [facility] [address] [id number] [place] [address] Feb, [facility] [place] [facility] [address] [id number] [place] [address] Jan, [facility] [place] [facility] [address] [id number] [place] [address] 28 Jan, 2013 [facility] [place] [facility] [address] [id number] [place] [address] 08 Jan, 2013 [facility] [place] [facility] [address] [id number] [place] [address] 08 Jan, 2013 [facility] [place] [facility] [address] [id number] [place] [address] Jan, 2013 [facility] [place] [facility] [address] [id number] [place] [address] Jan, 2013 [facility] [place] [facility] [address] [id number] [place] [address] 29 Dec, 2013 [facility] [place] [facility] [address] [id number] [place] [address] 29 Dec, 2013 [facility] [place] [facility] [address] [id number] [place] [address] 26 Dec, 2013 [facility] [place] [facility] [address] [id number] [place] [address] 11 Sep, 2013 [facility] [place] [facility] [address] [id number] [place] [address] 11 Dec, 2013 [facility] [place] [facility] [address] [id number] [place] [address] 08 Sep, 2013 [facility] [place] [facility] [address] [id number] [place] [address] 08 Sep, 2013 [facility] [place] [facility] [address] [id number] [place] [address] 08 Sep, 2013 [facility] [place] [facility] [address] [id number] [place] [address] 08 Sep, 2013 [facility] [place] [facility] [address] [id number] [place] [address] 04 Sep, 2013 [facility] [place] [facility] [address] [id number] [place] [address] Dec, [facility] [place] [facility] [address] [id number] [place] [address] Nov, [facility] [place] [facility] [address] [id number] [place] [address] Nov, [facility] [place] [facility] [address] [id number] [place] [address] Nov, [facility] [place] [facility] [address] [id number] [place] [address] Nov, [facility] [place] [facility] [address] [id number] [place] [address] Nov, [facility] [place] [facility] [address] [id number] [place] [address] Nov, [facility] [place] [facility] [address] [id number] [place] [address] Nov, [facility] [place] [facility] [address] [id number] [place] [address] Nov, [facility] [place] [facility] [address] [id number] [place] [address] Nov, [facility] [place] [facility] [address] [id number] [place] [address] Nov, [facility] [place] [facility] [address] [id number] [place] [address] Oct, [facility] [place] [facility] [address] [id number] [place] [address] Oct, [facility] [place] [facility] [address] [id number] [place] [address] Oct, [facility] [place] [facility] [address] [id number] [place] [address] Oct, [facility] [place] [facility] [address] [id number] [place] [address] Oct, [facility] [place] [facility] [address] [id number] [place] [address] Oct, [facility] [place] [facility] [address] [id number] [place] [address] Oct, [facility] [place] [facility] [address] [id number] [place] [address] Oct, [facility] [place] [facility] [address] [id number] [place] [address] Oct, [facility] [place] [facility] [address] [id number] [place] [address] Oct, [facility] [place] [facility] [address] [id number] [place] [address] Oct, [facility] [place] [facility] [address] [id number] [place] [address] Oct, [facility] [place] [facility] [address] [id number] [place] [address] Oct, [facility] [place] [facility] [address] [id number] [place] [address] Sep, [facility] [place] [facility] [address] [id number] [place] [address] Sep, [facility] [place] [facility] [address] [id number] [place] [address] Sep, [facility] [place] [facility] [address] [id number] [place] [address] Sep, [facility] [place] [facility] [address] [id number] [place] [address] August, [facility] [place] [facility] [address] [id number] [place] [address] August, [facility] [place] [facility] [address] [id number] [place] [address] August, [facility] [place] [facility] [address] [id number] [place] [address] August, [facility] [place] [facility] [address] [id number] [place] [address] August, [facility] [place] [facility] [address] [id number] [place] [address] August, [facility] [place] [facility] [address] [id number] [place] [address] August, [facility] [place] [facility] [address] [id number] [place] [address] August, [facility] [place] [facility] [address] [id number] [place] [address] Jul, [facility] [place] [facility] [address] [id number] [place] [address] Jul, [facility] [place] [facility] [address] [id number] [place] [address] Jun, [facility] [place] [facility] [address] [id number] [place] [address] Jun, [facility] [place] [facility] [address] [id number] [place] [address] Jun, [facility] [place] [facility] [address] [id number] [place] [address] Jun, [facility] [place] [facility] [address] [id number] [place] [address] Jun, [facility] [place] [facility] [address] [id number] [place] [address] Jun, [facility] [place] [facility] [address] [id number] [place] [address] May, [facility] [place] [facility] [address] [id number] [place] [address] May, [facility] [place] [facility] [address] [id number] [place] [address] 14 May, 2013 [facility] [place] [facility] [address] [id number] [place] [address] 14 May, 2013 [facility] [place] [facility] [address] [id number] [place] [address] May, [facility] [place] [facility] [address] [id number] [place] [address] May, [facility] [place] [facility] [address] [id number] [place] [address] Apr, [facility] [place] [facility] [address] [id number] [address] Apr, [facility] [place] [facility] [address] [id number] [place] [address] 15 Feb, 2013 [facility] [place] [facility] [address] [id number] [place] [address] 15 Feb, 2013 [facility] [place] [facility] [address] [id number] [address] 15 Feb, 2013 [facility] [place] [facility] [address] [id number] [place] [address] 15 Feb, 2013 [facility] [place] [facility] [address] [id number] [place] [address] Feb, [facility] [place] [facility] [address] [id number] [place] [address] Feb, [facility] [place] [facility] [address] [id number] [place] [address] Feb, [facility] [place] [facility] [address] [id number] [place] [address] Feb, [facility] [place] [facility] [address] [id number] [address] 08 Feb, 2013 [facility] [place] [facility] [address] [id number] [place] [address] Jan, [facility] [place] [facility] [address] [id number] [place] [address] Jan, [facility] [place] [facility] [address] [id number] [place] [address] Jan, [facility] [address] [id number] [place] [address] Jan, [facility] [place] [facility] [address] [id number] [place] [address] Jan, [facility] [address] [id number] [place] [address] Jan, [facility] [place] [facility] [address] [id number] [place] [address] 17 Dec, 2012 [facility] [address] [id number] [place] [address] Dec, [facility] [address] [id number] [place] [address] 05 Dec, 2012 [facility] [address] [id number] [place] [address] Dec, [facility] [address] [id number] [place] [address] Oct, [facility] [place] [facility] [address] [id number] [place] [address] Oct, [facility] [address] [id number] [place] [address] Oct, [facility] [place] [facility] [address] [id number] [place] [address] Oct, [facility] [place] [facility] [address] [id number] [place] [address] Oct, [facility] [place] [facility] [address] [id number] [place] [address] Sep, [facility] [place] [facility] [address] [id number] [place] [address] August, [facility] [place] [facility] [address] [id number] [place] [address] August, [facility] [address] [id number] [place] [address] August, [facility] [address] [id number] [place] [address] August, [facility] [address] [id number] [place] [address] August, [facility] [address] [id number] [place] [address] August, [facility] [address] [id number] [place] [address] August, [facility] [address] [id number] [place] [address] August, [facility] [address] [id number] [place] [address] August, [facility] [address] [id number] [place] [address] August, [facility] [address] [id number] [place] [address] August, [facility] [address] [id number] [place] [address] August, [facility] [address] [id number] [place] [address] Jun, [facility] [place] [facility] [address] [id number] [place] [address] Jun, [facility] [place] [facility] [address] [id number] [place] [address] Jun, [facility] [place] [facility] [address] [id number] [place] [address] May, [facility] [place] [facility] [address] [id number] [place] [address] May, [facility] [place] [facility] [address] [id number] [place] [address] Mar, [facility] [address] [id number] [place] [address] Mar, [facility] [place] [facility] [address] [id number] [place] [address] Feb, [facility] [place] [facility] [address] [id number] [place] [address] Feb, [facility] [place] [facility] [address] [id number] [place] [address] Feb, [facility] [place] [facility] [address] [id number] [place] [address] Feb, [facility] [place] [facility] [address] [id number] [place] [address] Dec, [facility] [place] [facility] [address] [id number] [place] [address] August, [facility] [place] [facility] [address] [id number] [place] [address] Jul, [facility] [place] [facility] [address] [id number] [place] [address] 05 Jul, 2011 [facility] [place] [facility] [address] [facility] [id number] [place] [address] Jun, [facility] [place] [facility] [address] [id number] [place] [address] Jun, [facility] [place] [facility] [address] [id number] [place] [address] Jun, [facility] [place] [facility] [address] [id number] [place] [address] Jun, [facility] [place] [facility] [address] [id number] [place] [address] Jun, [facility] [place] [facility] [address] [facility] [id number] [place] [address] May, [facility] [address] [facility] [id number] [place] [address] May, [facility] [address] [facility] [id number] [place] [address] May, [facility] [address] [facility] [id number] [place] [address] May, [facility] [address] [facility] [id number] [place] [address] Apr, [facility] [address] [facility] [id number] [place] [address] Apr, [facility] [address] [facility] [id number] [place] [address] Apr, [facility] [address] [facility] [id number] [place] [address] Mar, [facility] [address] [id number] [place] [address] Mar, [facility] [address] [id number] [place] [address] Mar, [facility] [id number] [address] Mar, [facility] [address] [id number] [place] [address] May, [facility] [id number] [address] Feb, [facility] [address] [facility] [id number] [place] [address] Feb, [facility] [id number] [address] Jan, [facility] [address] [id number] [place] [address] Jan, IMMUNIZATIONS No Known Immunizations SOCIAL HISTORY Never Assessed REASON FOR VISIT medication change PLAN OF CARE VITAL SIGNS MEDICATIONS Unknown [...]
--- OUTSIDE RECORDS SUMMARY | 2018-09-19 01:28 | XMS REPORT ---
Author Author SAMMY ARZATE Organization [facility] Address [address] [place] [address] Care Team Providers Care Sole Conditioner Name Role Phone SAMMY ARZATE Unavailable PROBLEMS Type Condition ICD9-CM Code FXE52-PF Code Onset Dates Condition Status SNOMED Code Problem 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 Active 965932317 Problem Screening, lipid Z13.220 Active 096270566 Problem Shortness of breath R06.02 Active 451011039 Problem Benign prostatic hyperplasia, unspecified whether lower urinary tract symptoms present N40.0 Active 916863908 Problem Osteoarthritis, unspecified osteoarthritis type, unspecified site M19.90 Active 125429412 Problem 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 Active 131892456 Problem Gastroesophageal reflux disease without esophagitis K21.9 Active 819960229 Problem Other chronic pain G89.29 Active 07735668 ALLERGIES No Information ENCOUNTERS Encounter Location Date Diagnosis [place] [id number] [place] [address] Jan, [place] [id number] [place] [address] Dec, [facility] [address] [place] [address] Nov, Osteoarthritis, unspecified osteoarthritis type, unspecified site M19.90 [facility] [address] [place] [address] Nov, Shortness of breath R06.02 [facility] [address] [place] [address] Nov, [facility] [address] [place] [address] Nov, [facility] [address], [place] [address] Oct, Osteoarthritis, unspecified osteoarthritis type, unspecified site M19.90 [facility] [address] [place] [address] Sep, [facility] [address], [place] [address] Sep, Osteoarthritis, unspecified osteoarthritis type, unspecified site M19.90 [facility] [address], [place] [address] August, Other chronic pain G89.29 and Other specified personal risk factors, not elsewhere classified Z91.89 [facility] [address] [place] [address] [address] August, Osteoarthritis, unspecified osteoarthritis type, unspecified site M19.90 [place] [address] [address] [address] Jul, Osteoarthritis, unspecified osteoarthritis type, unspecified site M19.90 [place] [address], [place] [address] Jun, Osteoarthritis, unspecified osteoarthritis type, unspecified site M19.90 [facility] [address], [place] [address] Jun, [facility] [address], [place] [address] Jun, Osteoarthritis, unspecified osteoarthritis type, unspecified site M19.90 [facility] [address], [place] [address] May, [facility] [address], [place] [address] May, Benign prostatic hyperplasia, unspecified whether lower urinary tract symptoms present N40.0 [facility] [address], [place] [address] May, Osteoarthritis, unspecified osteoarthritis type, unspecified site M19.90 [facility] [address], [place] [address] May, [place] [address] [place] [id number] [place] [address] Apr, Other chronic pain G89.29 ; Family history of diabetes mellitus Z83.3 ; Forgetfulness R68.89 ; History of multiple concussions Z87.820 ; Gastroesophageal reflux disease without esophagitis K21.9 and Screening, lipid Z13.220 [place] [address], [place] [address] Apr, Other chronic pain G89.29 ; Forgetfulness R68.89 ; History of multiple concussions Z87.820 ; Gastroesophageal reflux disease without esophagitis K21.9 ; Screening, lipid Z13.220 and Family history of diabetes mellitus Z83.3 [place] [address] [place] [id number] [place] [address] Apr, Osteoarthritis, unspecified osteoarthritis type, unspecified site M19.90 [place] [address] [place] [id number] [place] [address] Apr, Osteoarthritis, unspecified osteoarthritis type, unspecified site M19.90 [place] [address] [place] [address] [address] Apr, [place] [address] [place] [id number] [place] [address] Mar, Osteoarthritis, unspecified osteoarthritis type, unspecified site M19.90 [place] [address], [place] [address] Feb, Osteoarthritis, unspecified osteoarthritis type, unspecified site M19.90 [place] [address], [place] [address] Jan, Osteoarthritis, unspecified osteoarthritis type, unspecified site M19.90 [place] [address] [place] [id number] [place] [address] Dec, Osteoarthritis, unspecified osteoarthritis type, unspecified site M19.90 [facility] [address] [address] [id number] [place] [address] Dec, [facility] [address] [place] [id number] [place] [address] Nov, Encounter for screening for lipid disorder Z13.220 [place] [address] [place] [id number] [place] [address] Nov, Osteoarthritis, unspecified osteoarthritis type, unspecified site M19.90 ; Encounter for screening for lipid disorder Z13.220 and Other chronic pain G89.29 [place] [address] [place] [id number] [place] [address] Nov, Osteoarthritis, unspecified osteoarthritis type, unspecified site M19.90 [place] [address] [place] [id number] [place] [address] Nov, [place] [address] [place] [id number] [place] [address] Nov, [place] [address] [place] [id number] [place] [address] Oct, Osteoarthritis, unspecified osteoarthritis type, unspecified site M19.90 [place] [address] [place] [id number] [place] [address] Oct, Gastroesophageal reflux disease without esophagitis K21.9 [facility] [address] [place] [id number] [place] [address] Sep, Osteoarthritis, unspecified osteoarthritis type, unspecified site M19.90 [place] [address] [place] [id number] [place] [address] August, Osteoarthritis, unspecified osteoarthritis type, unspecified site M19.90 [place] [address] [place] [id number] [place] [address] August, Osteoarthritis, unspecified osteoarthritis type, unspecified site M19.90 [facility] [address] [place] [id number] [place] [address] Jul, Osteoarthritis, unspecified osteoarthritis type, unspecified site M19.90 and Gastroesophageal reflux disease without esophagitis K21.9 [facility] [address] [place] [id number] [place] [address] Jul, Osteoarthritis, unspecified osteoarthritis type, unspecified site M19.90 [facility] [address] [place] [id number] [place] [address] Jun, Ventral hernia without obstruction or gangrene K43.9 [place] [address] [address] Jun, Osteoarthritis, unspecified osteoarthritis type, unspecified site M19.90 [place] [address] [place] [id number] [place] [address] May, [place] [address] [place] [id number] [place] [address] May, Osteoarthritis, unspecified osteoarthritis type, unspecified site M19.90 [place] [address] [place] [id number] [place] [address] Apr, Osteoarthritis, unspecified osteoarthritis type, unspecified site M19.90 [place] [address] [place] [id number] [place] [address] Mar, [place] [address] [place] [address] [place] [address] Mar, Osteoarthritis, unspecified osteoarthritis type, unspecified site M19.90 and Lumbago with sciatica, left side M54.42 [place] [address] [place] [address] [place] [address] Feb, [facility] [address] [place] [id number] [place] [address] Feb, [facility] [address] [place] [address] [id number] [place] [address] Feb, Osteoarthritis, unspecified osteoarthritis type, unspecified site M19.90 [place] [address] [place] [id number] [place] [address] Feb, [facility] [address] [place] [id number] [place] [address] Feb, Low back pain M54.5 and Other chronic pain G89.29 [place] [address] [place] [id number] [place] [address] Feb, [place] [address] [place] [address] [place] [address] Jan, [place] [address] [place] [address] [place] [address] Jan, [facility] [place] [address] [place] [address] [address] [place] [address] 24 Dec, 2015 Lumbago with sciatica, left side M54.42 [place] [address] [place] [address] [place] [address] 15 Dec, 2015 Irritable bowel syndrome with both constipation and diarrhea K58.0 ; Screening, lipid Z13.220 ; Nocturia R35.1 ; Family history of diabetes mellitus Z83.3 and Dysuria R30.0 [place] [address] [place] [address] [place] [address] 14 Dec, 2015 Irritable bowel syndrome with both constipation and diarrhea K58.0 ; Nocturia R35.1 ; Family history of diabetes mellitus Z83.3 ; Dysuria R30.0 and Screening, lipid Z13.220 [place] [address] [place] [address] [place] [address] 12 Dec, 2015 [place] [address] [place] [address] [place] [address] 07 Dec, 2015 [facility] [address] [place] [id number] [place] [address] Dec, Pain with swallowing R13.10 [facility] [address] [place] [address] [address] [place] [address] Nov, [facility] [address] [place] [id number] [place] [address] Nov, [facility] [address] [place] [id number] [place] [address] Oct, [facility] [address] [place] [id number] [place] [address] Sep, [facility] [address] [place] [id number] [place] [address] Sep, Osteoarthritis, unspecified osteoarthritis type, unspecified site M19.90 [facility] [address] [place] [id number] [place] [address] Sep, Back pain M54.9 [facility] [address] [place] [id number] [place] [address] Sep, Lumbago with sciatica, right side M54.41 and Bilateral impacted cerumen H61.23 [facility] [address] [place] [id number] [place] [address] Sep, [facility] [address] [place] [id number] [place] [address] August, Bronchitis J40 [facility] [address] [place] [id number] [place] [address] August, [facility] [address] [place] [address] [id number] [place] [address] August, [facility] [address] [place] [id number] [place] [address] August, [facility] [address] [place] [id number] [place] [address] Jul, [facility] [address] [place] [address] [place] [address] Jul, Back pain M54.9 [facility] [address], [place] [address] Jun, Degenerative disc disease at L5-S1 level M51.36 and Bronchitis J40 [facility] [address] [address] [place] [address] Jun, [facility] [address] [place] [id number] [place] [address] May, [facility] [address] [place] [id number] [place] [address] Apr, [facility] [address] [place] [address] [id number] [place] [address] Mar, [facility] [address] [place] [id number] [place] [address] Mar, [facility] [address] [place] [address] [id number] [place] [address] Feb, [facility] [address] [place] [id number] [place] [address] Jan, [facility] [address] [id number] [place] [address] Dec, [facility] [address] [id number] [place] [address] Nov, [facility] [address] [address] [place] [address] Oct, [facility] [address] [id number] [place] [address] Oct, Right shoulder pain 719.41 [facility] [address] [place] [id number] [place] [address] Sep, [facility] [address] [place] [address] [id number] [place] [address] Sep, Vertigo 780.4 and Elbow fracture, right 812.40 [facility] [address] [id number] [place] [address] 08 Sep, 2014 [facility] [place] [facility] [address] [id number] [place] [address] August, [facility] [place] [facility] [address] [id number] [place] [address] Jul, [facility] [place] [facility] [address] [id number] [place] [address] Jul, [facility] [place] [facility] [address] [id number] [place] [address] Jun, [facility] [place] [facility] [address] [id number] [place] [address] Jun, [facility] [place] [facility] [address] [facility] [id number] [place] [address] Jun, [facility] [place] [facility] [address] [facility] [id number] [place] [address] Jun, [facility] [place] [facility] [address] [facility] [id number] [place] [address] Jun, [facility] [place] [facility] [address] [facility] [id number] [place] [address] Jun, [facility] [place] [facility] [address] [facility] [id number] [place] [address] May, [facility] [place] [facility] [address] [facility] [id number] [address] May, [facility] [place] [facility] [address] [id number] [place] [address] May, [facility] [place] [facility] [address] [id number] [place] [address] May, [facility] [place] [facility] [address] [facility] [id number] [place] [address] May, [facility] [place] [facility] [address] [facility] [id number], [place] [address] May, [facility] [address] [id number] [place] [address] Apr, [facility] [place] [facility] [address] [id number] [place] [address] Apr, [facility] [place] [facility] [address] [facility] [id number] [place] [address] Apr, [facility] [place] [facility] [address] [id number] [place] [address] Apr, [facility] [place] [facility] [address] [id number] [place] [address] Apr, [facility] [place] [facility] [address] [facility] [id number] [place] [address] Apr, [facility] [address] [facility] [id number] [place] [address] Apr, [facility] [place] [facility] [address] [facility] [id number] [place] [address] Mar, [facility] [place] [facility] [address] [facility] [id number] [place] [address] Mar, [facility] [place] [facility] [address] [facility] [id number] [place] [address] Mar, [facility] [place] [facility] [address] [facility] [id number] [place] [address] Mar, [facility] [place] [facility] [address] [facility] [id number] [place] [address] Mar, [facility] [place] [facility] [address] [id number] [place] [address] 31 Mar, 2014 [facility] [place] [facility] [address] [facility] [id number] [place] [address] 30 Mar, 2014 [facility] [place] [facility] [address] [facility] [id number] [place] [address] 30 Mar, 2014 [facility] [place] [facility] [address] [id number] [place] [address] Mar, [facility] [place] [facility] [address] [id number] [place] [address] Mar, [facility] [place] [facility] [address] [id number] [place] [address] Mar, [facility] [place] [facility] [address] [id number] [place] [address] Mar, [facility] [place] [facility] [address] [id number] [place] [address] Mar, [facility] [place] [facility] [address] [id number] [place] [address] Mar, [facility] [place] [facility] [address] [id number] [place] [address] Mar, [facility] [place] [facility] [address] [id number] [place] [address] Feb, [facility] [place] [facility] [address] [id number] [place] [address] Feb, [facility] [place] [facility] [address] [id number] [place] [address] Feb, [facility] [place] [facility] [address] [id number] [place] [address] Feb, [facility] [place] [facility] [address] [id number] [place] [address] Feb, [facility] [place] [facility] [address] [id number] [place] [address] Feb, [facility] [place] [facility] [address] [id number] [place] [address] Jan, [facility] [place] [facility] [address] [id number] [place] [address] Jan, [facility] [place] [facility] [address] [id number] [place] [address] Jan, [facility] [place] [facility] [address] [id number] [place] [address] 08 Jan, 2014 [facility] [place] [facility] [address] [id number] [place] [address] Jan, [facility] [place] [facility] [address] [id number] [place] [address] Jan, [facility] [place] [facility] [address] [id number] [place] [address] 29 Dec, 2013 [facility] [place] [facility] [address] [id number] [place] [address] 29 Dec, 2013 [facility] [place] [facility] [address] [id number] [place] [address] Dec, 2013 [facility] [place] [facility] [address] [id number] [place] [address] Dec, 2013 [facility] [place] [facility] [address] [id number] [place] [address] Dec, 2013 [facility] [place] [facility] [address] [id number] [place] [address] Dec, 2013 [facility] [place] [facility] [address] [id number] [place] [address] 08 Dec, 2013 [facility] [place] [facility] [address] [id number], [place] [address] Dec, 2013 [facility] [place] [facility] [address] [id number], [place] [address] 08 Dec, 2013 [facility] [place] [facility] [address] [id number] [place] [address] Dec, 2013 [facility] [place] [facility] [address] [id number], [place] [address] Dec, 2013 [facility] [place] [facility] [address] [id number], [place] [address] Nov, [facility] [place] [facility] [address] [id number] [place] [address] Nov, [facility] [place] [facility] [address] [id number] [place] [address] Nov, [facility] [place] [facility] [address] [id number] [place] [address] Nov, [facility] [place] [facility] [address] [id number] [place] [address] Nov, [facility] [place] [facility] [address] [id number] [place] [address] Nov, [facility] [place] [facility] [address] [id number] [place] [address] Nov, [facility] [place] [facility] [address] [id number] [place] [address] Nov, [facility] [place] [facility] [address] [id number] [place] [address] Nov, [facility] [place] [facility] [address] [id number] [place] [address] Nov, [facility] [place] [facility] [address] [id number] [place] [address] Oct, [facility] [place] [facility] [address] [id number] [place] [address] Oct, [facility] [place] [facility] [address] [id number] [place] [address] Oct, [facility] [place] [facility] [address] [id number] [place] [address] Oct, [facility] [place] [facility] [address] [id number] [place] [address] Oct, [facility] [place] [facility] [address] [id number] [place] [address] Oct, [facility] [place] [facility] [address] [id number] [place] [address] Oct, [facility] [place] [facility] [address] [id number] [place] [address] Oct, [facility] [place] [facility] [address] [id number] [place] [address] Oct, [facility] [place] [facility] [address] [id number] [place] [address] Oct, [facility] [place] [facility] [address] [id number] [place] [address] Oct, [facility] [place] [facility] [address] [id number] [place] [address] Oct, [facility] [place] [facility] [address] [id number] [place] [address] Oct, [facility] [place] [facility] [address] [id number] [place] [address] Sep, [facility] [place] [facility] [address] [id number] [place] [address] Sep, [facility] [place] [facility] [address] [id number] [place] [address] Sep, [facility] [place] [facility] [address] [id number] [place] [address] Sep, [facility] [place] [facility] [address] [id number] [place] [address] August, [facility] [place] [facility] [address] [id number] [place] [address] August, [facility] [place] [facility] [address] [id number] [place] [address] August, [facility] [place] [facility] [address] [id number] [place] [address] August, [facility] [place] [facility] [address] [id number] [place] [address] August, [facility] [place] [facility] [address] [id number] [place] [address] August, [facility] [place] [facility] [address] [id number] [place] [address] August, [facility] [place] [facility] [address] [id number] [place] [address] August, [facility] [place] [facility] [address] [id number] [place] [address] Jul, [facility] [place] [facility] [address] [id number] [place] [address] Jul, [facility] [place] [facility] [address] [id number] [place] [address] Jun, [facility] [place] [facility] [address] [id number] [place] [address] Jun, [facility] [place] [facility] [address] [id number] [place] [address] Jun, [facility] [place] [facility] [address] [id number] [place] [address] Jun, [facility] [place] [facility] [address] [id number] [place] [address] Jun, [facility] [place] [facility] [address] [id number] [place] [address] Jun, [facility] [place] [facility] [address] [id number] [place] [address] May, [facility] [place] [facility] [address] [id number] [place] [address] May, [facility] [place] [facility] [address] [id number] [place] [address] May, [facility] [place] [facility] [address] [id number] [place] [address] May, [facility] [place] [facility] [address] [id number] [place] [address] May, [facility] [place] [facility] [address] [id number] [place] [address] May, [facility] [place] [facility] [address] [id number] [place] [address] Apr, [facility] [place] [facility] [address] [id number] [place] [address] Apr, [facility] [place] [facility] [address] [id number] [place] [address] 15 Feb, 2013 [facility] [place] [facility] [address] [id number] [place] [address] 15 Feb, 2013 [facility] [place] [facility] [address] [id number] [place] [address] Feb, [facility] [place] [facility] [address] [id number] [place] [address] Feb, [facility] [place] [facility] [address] [id number] [place] [address] Feb, [facility] [place] [facility] [address] [id number] [place] [address] Feb, [facility] [place] [facility] [address] [id number] [place] [address] Feb, [facility] [place] [facility] [address] [id number] [place] [address] Feb, [facility] [place] [facility] [address] [id number] [place] [address] 08 Feb, 2013 [facility] [place] [facility] [address] [id number] [place] [address] Jan, [facility] [place] [facility] [address] [id number] [place] [address] Jan, [facility] [place] [facility] [address] [id number] [place] [address] 10 Jan, 2013 [facility] [place] [facility] [address] [id number] [place] [address] Jan, [facility] [place] [facility] [address] [id number] [place] [address] Jan, [facility] [place] [facility] [address] [id number] [place] [address] Jan, [facility] [place] [facility] [address] [id number] [place] [address] Dec, [facility] [place] [facility] [address] [id number] [place] [address] Dec, [facility] [place] [facility] [address] [id number] [place] [address] Dec, [facility] [place] [facility] [address] [id number] [place] [address] Dec, [facility] [place] [facility] [address] [id number] [place] [address] Oct, [facility] [place] [facility] [address] [id number] [place] [address] Oct, [facility] [place] [facility] [address] [id number] [place] [address] Oct, [facility] [place] [facility] [address] [id number] [place] [address] Oct, [facility] [place] [facility] [address] [id number] [place] [address] Oct, [facility] [place] [facility] [address] [id number], [place] [address] Sep, [facility] [place] [facility] [address] [id number] [place] [address] August, [facility] [place] [facility] [address] [id number] [place] [address] August, [facility] [place] [facility] [address] [id number] [place] [address] August, [facility] [place] [facility] [address] [id number] [place] [address] August, [facility] [address] [id number] [place] [address] August, [facility] [address] [id number] [place] [address] August, [facility] [address] [id number] [place] [address] August, [facility] [address] [id number] [place] [address] August, [facility] [address] [id number] [place] [address] August, [facility] [address] [id number] [place] [address] August, [facility] [address] [id number] [place] [address] August, [facility] [address] [id number] [place] [address] August, [facility] [address] [id number] [place] [address] Jun, [facility] [address] [id number] [place] [address] Jun, [facility] [address] [id number] [place] [address] Jun, [facility] [address] [id number] [place] [address] May, [facility] [address] [id number] [place] [address] May, [facility] [address] [id number] [place] [address] Mar, [facility] [address] [id number] [place] [address] Mar, [facility] [place] [facility] [address] [id number] [place] [address] Feb, [facility] [place] [facility] [address] [id number] [place] [address] Feb, [facility] [place] [facility] [address] [id number] [place] [address] Feb, [facility] [place] [facility] [address] [id number] [place] [address] Feb, [facility] [place] [facility] [address] [id number] [place] [address] Dec, [facility] [place] [facility] [address] [id number] [place] [address] August, [facility] [place] [facility] [address] [id number] [place] [address] Jul, [facility] [place] [facility] [address] [id number] [place] [address] Jul, [facility] [place] [facility] [address] [id number] [place] [address] Jun, [facility] [place] [facility] [address] [id number], [place] [address] Jun, [facility] [place] [facility] [address] [id number] [place] [address] Jun, [facility] [place] [facility] [address] [id number], [place] [address] Jun, [facility] [place] [facility] [address] [id number] [place] [address] Jun, [facility] [place] [facility] [address] [id number] [place] [address] May, [facility] [place] [facility] [address] [id number] [place] [address] May, [facility] [place] [facility] [address] [address] 14 May, 2011 [facility] [id number], [place] [address] May, [facility] [id number], [place] [address] Apr, [facility] [id number], [place] [address] Apr, [facility] [id number], [place] [address] Apr, [facility] [id number] [place] [address] Mar, [facility] [id number] [place] [address] Mar, [facility] [id number] [place] [address] Mar, [facility] [id number], [place] [address] Mar, [facility] [id number] [place] [address] May, [facility] [address], [place] [address] Feb, [facility] [id number], [place] [address] Feb, [facility] [address], [place] [address] Jan, [facility] [address], [place] [address] Jan, IMMUNIZATIONS No Known Immunizations SOCIAL HISTORY Never Assessed REASON FOR VISIT medication refill PLAN OF CARE VITAL SIGNS MEDICATIONS Medication Instructions Dosage Frequency Start Date End Date Duration Status Esomeprazole Magnesium 40 mg Orally Once a day 1 capsule 24h May, 90 days Active RESULTS No Results PROCEDURES No [...]
--- OUTSIDE RECORDS SUMMARY | 2018-09-19 01:28 | XMS REPORT ---
Author Author SAMMY ARZATE Organization [facility] [place] Address [address] [place] [address] Care Team Providers Care Survey Research Teacher Name Role Phone SAMMY ARZATE Unavailable PROBLEMS Type Condition ICD9-CM Code NYY90-GJ Code Onset Dates Condition Status SNOMED Code Problem 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 Active 293111350 Problem Screening, lipid Z13.220 Active 796613498 Problem Shortness of breath R06.02 Active 215305601 Problem Benign prostatic hyperplasia, unspecified whether lower urinary tract symptoms present N40.0 Active 193082693 Problem Osteoarthritis, unspecified osteoarthritis type, unspecified site M19.90 Active 415702229 Problem 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 Active 680387746 Problem Gastroesophageal reflux disease without esophagitis K21.9 Active 633222251 Problem Other chronic pain G89.29 Active 17157307 ALLERGIES No Information ENCOUNTERS Encounter Location Date Diagnosis [place] [id number] [place] [address] 08 Jan, 2018 [place] [id number] [place] [address] 18 Dec, 2017 Osteoarthritis, unspecified osteoarthritis type, unspecified site M19.90 [facility] [place] [id number] [place] [address] Dec, [facility] [place] [id number] [place] [address] Nov, Osteoarthritis, unspecified osteoarthritis type, unspecified site M19.90 [facility] [place] [id number] [place] [address] 14 Nov, 2017 Shortness of breath R06.02 [place] [id number] [place] [address] Nov, [facility] [place] [address] [address] Nov, [facility] [place] [id number] [place] [address] Oct, Osteoarthritis, unspecified osteoarthritis type, unspecified site M19.90 [facility] [place] [id number] [place] [address] Sep, [facility] [place] [id number] [place] [address] Sep, Osteoarthritis, unspecified osteoarthritis type, unspecified site M19.90 [place] [id number] [place] [address] August, Other chronic pain G89.29 and Other specified personal risk factors, not elsewhere classified Z91.89 [place] [id number] [place] [address] August, Osteoarthritis, unspecified osteoarthritis type, unspecified site M19.90 [facility] [place] [id number] [place] [address] Jul, Osteoarthritis, unspecified osteoarthritis type, unspecified site M19.90 [facility] [place] [address] [address] Jun, Osteoarthritis, unspecified osteoarthritis type, unspecified site M19.90 [facility] [place] [address] [address] Jun, [facility] [place] [id number] [address] Jun, Osteoarthritis, unspecified osteoarthritis type, unspecified site M19.90 [facility] [place] [address] [address] May, [facility] [place] [address] [address] May, Benign prostatic hyperplasia, unspecified whether lower urinary tract symptoms present N40.0 [place] [id number] [place] [address] May, Osteoarthritis, unspecified osteoarthritis type, unspecified site M19.90 [place] [id number] [place] [address] May, [place] [id number] [place] [address] Apr, Other chronic pain G89.29 ; Family history of diabetes mellitus Z83.3 ; Forgetfulness R68.89 ; History of multiple concussions Z87.820 ; Gastroesophageal reflux disease without esophagitis K21.9 and Screening, lipid Z13.220 [place] [id number] [place] [address] Apr, Other chronic pain G89.29 ; Forgetfulness R68.89 ; History of multiple concussions Z87.820 ; Gastroesophageal reflux disease without esophagitis K21.9 ; Screening, lipid Z13.220 and Family history of diabetes mellitus Z83.3 [place] [id number] [place] [address] Apr, Osteoarthritis, unspecified osteoarthritis type, unspecified site M19.90 [place] [id number] [place] [address] Apr, Osteoarthritis, unspecified osteoarthritis type, unspecified site M19.90 [place] [id number] [place] [address] Apr, [place] [id number] [place] [address] Mar, Osteoarthritis, unspecified osteoarthritis type, unspecified site M19.90 [place] [id number] [place] [address] Feb, Osteoarthritis, unspecified osteoarthritis type, unspecified site M19.90 [place] [id number] [place] [address] Jan, Osteoarthritis, unspecified osteoarthritis type, unspecified site M19.90 [facility] [place] [id number] [place] [address] Dec, Osteoarthritis, unspecified osteoarthritis type, unspecified site M19.90 [facility] [place] [id number] [place] [address] Dec, [place] [id number] [place] [address] Nov, Encounter for screening for lipid disorder Z13.220 [place] [id number] [place] [address] Nov, Osteoarthritis, unspecified osteoarthritis type, unspecified site M19.90 ; Encounter for screening for lipid disorder Z13.220 and Other chronic pain G89.29 [place] [id number] [place] [address] Nov, Osteoarthritis, unspecified osteoarthritis type, unspecified site M19.90 [place] [id number] [place] [address] Nov, [place] [id number] [place] [address] Nov, [place] [id number] [place] [address] Oct, Osteoarthritis, unspecified osteoarthritis type, unspecified site M19.90 [place] [id number] [place] [address] Oct, Gastroesophageal reflux disease without esophagitis K21.9 [facility] [place] [id number] [place] [address] Sep, Osteoarthritis, unspecified osteoarthritis type, unspecified site M19.90 [place] [id number] [place] [address] August, Osteoarthritis, unspecified osteoarthritis type, unspecified site M19.90 [facility] [place] [id number] [place] [address] August, Osteoarthritis, unspecified osteoarthritis type, unspecified site M19.90 [facility] [place] [id number] [place] [address] Jul, Osteoarthritis, unspecified osteoarthritis type, unspecified site M19.90 and Gastroesophageal reflux disease without esophagitis K21.9 [place] [id number] [place] [address] Jul, Osteoarthritis, unspecified osteoarthritis type, unspecified site M19.90 [place] [id number] [place] [address] Jun, Ventral hernia without obstruction or gangrene K43.9 [place] [id number] [place] [address] Jun, Osteoarthritis, unspecified osteoarthritis type, unspecified site M19.90 [place] [id number] [place] [address] May, [place] [id number] [place] [address] May, Osteoarthritis, unspecified osteoarthritis type, unspecified site M19.90 [place] [id number] [place] [address] Apr, Osteoarthritis, unspecified osteoarthritis type, unspecified site M19.90 [place] [id number] [place] [address] Mar, [place] [id number] [place] [address] Mar, Osteoarthritis, unspecified osteoarthritis type, unspecified site M19.90 and Lumbago with sciatica, left side M54.42 [place] [id number] [place] [address] Feb, [place] [address] [address] Feb, [facility] [address] [place] [address] Feb, Osteoarthritis, unspecified osteoarthritis type, unspecified site M19.90 [facility] [place] [id number] [place] [address] Feb, [facility] [place] [id number] [place] [address] Feb, Low back pain M54.5 and Other chronic pain G89.29 [place] [id number] [place] [address] Feb, [place] [id number] [place] [address] Jan, [place] [id number] [place] [address] 05 Jan, 2016 [facility] [id number] [place] [address] 24 Dec, 2015 Lumbago with sciatica, left side M54.42 [place] [id number] [place] [address] 15 Dec, 2015 Irritable bowel syndrome with both constipation and diarrhea K58.0 ; Screening, lipid Z13.220 ; Nocturia R35.1 ; Family history of diabetes mellitus Z83.3 and Dysuria R30.0 [place] [address] [place] [address] 14 Dec, 2015 Irritable bowel syndrome with both constipation and diarrhea K58.0 ; Nocturia R35.1 ; Family history of diabetes mellitus Z83.3 ; Dysuria R30.0 and Screening, lipid Z13.220 [place] [address] [place] [address] 12 Dec, 2015 [facility] [place] [id number] [place] [address] 07 Dec, 2015 [facility] [id number] [place] [address] Dec, Pain with swallowing R13.10 [facility] [place] [id number] [place] [address] 24 Nov, 2015 [facility] [place] [id number] [place] [address] Nov, [facility] [place] [id number] [place] [address] Oct, [facility] [place] [address] [address] Sep, [facility] [place] [id number] [place] [address] Sep, Osteoarthritis, unspecified osteoarthritis type, unspecified site M19.90 [facility] [place] [id number] [place] [address] Sep, Back pain M54.9 [facility] [place] [id number] [place] [address] Sep, Lumbago with sciatica, right side M54.41 and Bilateral impacted cerumen H61.23 [facility] [place] [id number] [place] [address] Sep, [facility] [place] [id number] [place] [address] August, Bronchitis J40 [facility] [place] [id number] [place] [address] August, [facility] [place] [id number] [place] [address] August, [facility] [id number] [place] [address] August, [facility] [place] [id number] [address] Jul, [facility] [place] [id number] [place] [address] Jul, Back pain M54.9 [facility] [address] [address] Jun, Degenerative disc disease at L5-S1 level M51.36 and Bronchitis J40 [facility] [place] [id number] [place] [address] Jun, [facility] [place] [id number] [place] [address] May, [facility] [place] [id number] [place] [address] Apr, [facility] [place] [id number] [place] [address] Mar, [facility] [place] [id number] [place] [address] Mar, [facility] [place] [id number] [place] [address] Feb, [facility] [place] [id number] [address] Jan, [facility] [place] [address] [address] Dec, [facility] [place] [id number] [place] [address] Nov, [facility] [place] [id number] [place] [address] Oct, [facility] [place] [id number] [place] [address] Oct, Right shoulder pain 719.41 [facility] [place] [address] [address] Sep, [facility] [place] [address] [facility] [id number] [address] Sep, Vertigo 780.4 and Elbow fracture, right 812.40 [facility] [address] [facility] [id number] [place] [address] Sep, [facility] [address] [address] August, [facility] [address] [facility] [id number] [address] Jul, [facility] [address] [facility] [id number] [place] [address] Jul, [facility] [id number] [address] Jun, [facility] [address] [address] Jun, [facility] [id number] [address] Jun, [facility] [id number] [address] Jun, [facility] [address] [address] Jun, [facility] [address] [address] Jun, [facility] [address] [facility] [id number] [place] [address] May, [facility] [address] [facility] [id number] [place] [address] May, [facility] [address] [facility] [id number] [place] [address] May, [facility] [id number] [address] May, [facility] [place] [facility] [address] [id number] [place] [address] May, [facility] [place] [facility] [address] [id number] [place] [address] May, [facility] [place] [facility] [address] [id number] [place] [address] Apr, [facility] [place] [facility] [address] [id number] [place] [address] Apr, [facility] [place] [facility] [address] [id number] [place] [address] Apr, [facility] [place] [facility] [address] [id number] [place] [address] Apr, [facility] [place] [facility] [address] [id number] [place] [address] Apr, [facility] [place] [facility] [address] [id number] [place] [address] Apr, [facility] [place] [facility] [address] [id number] [place] [address] Apr, [facility] [place] [facility] [address] [id number] [place] [address] Mar, [facility] [place] [facility] [address] [id number] [place] [address] Mar, [facility] [place] [facility] [address] [id number] [place] [address] Mar, [facility] [place] [facility] [address] [id number] [place] [address] Mar, [facility] [place] [facility] [address] [id number] [place] [address] Mar, [facility] [place] [facility] [address] [id number] [place] [address] Mar, [facility] [place] [facility] [address] [id number] [place] [address] Mar, [facility] [place] [facility] [address] [id number] [place] [address] Mar, [facility] [place] [facility] [address] [id number] [place] [address] Mar, [facility] [place] [facility] [address] [id number] [place] [address] Mar, [facility] [place] [facility] [address] [id number] [place] [address] Mar, [facility] [place] [facility] [address] [id number] [place] [address] Mar, [facility] [place] [facility] [address] [id number] [place] [address] Mar, [facility] [place] [facility] [address] [id number] [place] [address] Mar, [facility] [place] [facility] [address] [id number] [place] [address] Mar, [facility] [place] [facility] [address] [id number] [place] [address] Feb, [facility] [place] [facility] [address] [id number] [place] [address] Feb, [facility] [place] [facility] [address] [id number] [place] [address] Feb, [facility] [place] [facility] [address] [id number] [place] [address] Feb, [facility] [place] [facility] [address] [id number] [place] [address] Feb, [facility] [place] [facility] [address] [id number] [place] [address] Feb, [facility] [place] [facility] [address] [id number] [place] [address] Jan, [facility] [place] [facility] [address] [id number] [place] [address] 28 Jan, 2013 [facility] [place] [facility] [address] [id number] [place] [address] 08 Jan, 2013 [facility] [place] [facility] [address] [id number] [place] [address] 08 Jan, 2013 [facility] [place] [facility] [address] [id number] [place] [address] Jan, 2013 [facility] [place] [facility] [address] [id number] [place] [address] Jan, 2013 [facility] [place] [facility] [address] [id number] [place] [address] 29 Dec, 2013 [facility] [place] [facility] [address] [id number] [place] [address] 29 Dec, 2013 [facility] [place] [facility] [address] [id number] [place] [address] 26 Dec, 2013 [facility] [place] [facility] [address] [id number] [place] [address] 11 Sep, 2013 [facility] [place] [facility] [address] [id number] [place] [address] 11 Dec, 2013 [facility] [place] [facility] [address] [id number] [place] [address] 08 Sep, 2013 [facility] [place] [facility] [address] [id number] [place] [address] 08 Sep, 2013 [facility] [place] [facility] [address] [id number] [place] [address] 08 Sep, 2013 [facility] [place] [facility] [address] [id number] [place] [address] 08 Sep, 2013 [facility] [place] [facility] [address] [id number] [place] [address] 04 Sep, 2013 [facility] [place] [facility] [address] [id number] [place] [address] Dec, [facility] [place] [facility] [address] [id number] [place] [address] Nov, [facility] [place] [facility] [address] [id number] [place] [address] Nov, [facility] [place] [facility] [address] [id number] [place] [address] Nov, [facility] [place] [facility] [address] [id number] [place] [address] Nov, [facility] [place] [facility] [address] [id number] [place] [address] Nov, [facility] [place] [facility] [address] [id number] [place] [address] Nov, [facility] [place] [facility] [address] [id number] [place] [address] Nov, [facility] [place] [facility] [address] [id number] [place] [address] Nov, [facility] [place] [facility] [address] [id number] [place] [address] Nov, [facility] [place] [facility] [address] [id number] [place] [address] Nov, [facility] [place] [facility] [address] [id number] [place] [address] Oct, [facility] [place] [facility] [address] [id number] [place] [address] Oct, [facility] [place] [facility] [address] [id number] [place] [address] Oct, [facility] [place] [facility] [address] [id number] [place] [address] Oct, [facility] [place] [facility] [address] [id number] [place] [address] Oct, [facility] [place] [facility] [address] [id number] [place] [address] Oct, [facility] [place] [facility] [address] [id number] [place] [address] Oct, [facility] [place] [facility] [address] [id number] [place] [address] Oct, [facility] [place] [facility] [address] [id number] [place] [address] Oct, [facility] [place] [facility] [address] [id number] [place] [address] Oct, [facility] [place] [facility] [address] [id number] [place] [address] Oct, [facility] [place] [facility] [address] [id number] [place] [address] Oct, [facility] [place] [facility] [address] [id number] [place] [address] Oct, [facility] [place] [facility] [address] [id number] [place] [address] Sep, [facility] [place] [facility] [address] [id number] [place] [address] Sep, [facility] [place] [facility] [address] [id number] [place] [address] Sep, [facility] [place] [facility] [address] [id number] [place] [address] Sep, [facility] [place] [facility] [address] [id number] [place] [address] August, [facility] [place] [facility] [address] [id number] [place] [address] August, [facility] [place] [facility] [address] [id number] [place] [address] August, [facility] [place] [facility] [address] [id number] [place] [address] August, [facility] [place] [facility] [address] [id number] [place] [address] August, [facility] [place] [facility] [address] [id number] [place] [address] August, [facility] [place] [facility] [address] [id number] [place] [address] August, [facility] [place] [facility] [address] [id number] [place] [address] August, [facility] [place] [facility] [address] [id number] [place] [address] Jul, [facility] [place] [facility] [address] [id number] [place] [address] Jul, [facility] [place] [facility] [address] [id number] [place] [address] Jun, [facility] [place] [facility] [address] [id number] [place] [address] Jun, [facility] [place] [facility] [address] [id number] [place] [address] Jun, [facility] [place] [facility] [address] [id number] [place] [address] Jun, [facility] [place] [facility] [address] [id number] [place] [address] Jun, [facility] [place] [facility] [address] [id number] [place] [address] Jun, [facility] [place] [facility] [address] [id number] [place] [address] May, [facility] [place] [facility] [address] [id number] [place] [address] May, [facility] [place] [facility] [address] [id number] [place] [address] 14 May, 2013 [facility] [place] [facility] [address] [id number] [place] [address] 14 May, 2013 [facility] [place] [facility] [address] [id number] [place] [address] May, [facility] [place] [facility] [address] [id number] [place] [address] May, [facility] [place] [facility] [address] [id number] [place] [address] Apr, [facility] [place] [facility] [address] [id number] [address] Apr, [facility] [place] [facility] [address] [id number] [place] [address] 15 Feb, 2013 [facility] [place] [facility] [address] [id number] [place] [address] 15 Feb, 2013 [facility] [place] [facility] [address] [id number] [address] 15 Feb, 2013 [facility] [place] [facility] [address] [id number] [place] [address] 15 Feb, 2013 [facility] [place] [facility] [address] [id number] [place] [address] Feb, [facility] [place] [facility] [address] [id number] [place] [address] Feb, [facility] [place] [facility] [address] [id number] [place] [address] Feb, [facility] [place] [facility] [address] [id number] [place] [address] Feb, [facility] [place] [facility] [address] [id number] [place] [address] 08 Feb, 2013 [facility] [place] [facility] [address] [id number] [place] [address] Jan, [facility] [place] [facility] [address] [id number] [place] [address] Jan, [facility] [place] [facility] [address] [id number] [place] [address] Jan, [facility] [address] [id number] [place] [address] Jan, [facility] [place] [facility] [address] [id number] [place] [address] Jan, [facility] [address] [id number] [place] [address] Jan, [facility] [place] [facility] [address] [id number] [place] [address] 17 Dec, 2012 [facility] [address] [id number] [place] [address] Dec, [facility] [address] [id number] [place] [address] 05 Dec, 2012 [facility] [address] [id number] [place] [address] Dec, [facility] [address] [id number] [place] [address] Oct, [facility] [place] [facility] [address] [id number] [place] [address] Oct, [facility] [address] [id number] [place] [address] Oct, [facility] [place] [facility] [address] [id number] [place] [address] Oct, [facility] [place] [facility] [address] [id number] [place] [address] Oct, [facility] [place] [facility] [address] [id number] [place] [address] Sep, [facility] [place] [facility] [address] [id number] [place] [address] August, [facility] [place] [facility] [address] [id number] [place] [address] August, [facility] [address] [id number] [place] [address] August, [facility] [address] [id number] [place] [address] August, [facility] [address] [id number] [place] [address] August, [facility] [address] [id number] [place] [address] August, [facility] [address] [id number] [place] [address] August, [facility] [address] [id number] [place] [address] August, [facility] [address] [id number] [place] [address] August, [facility] [address] [id number] [place] [address] August, [facility] [address] [id number] [place] [address] August, [facility] [address] [id number] [place] [address] August, [facility] [address] [id number] [place] [address] Jun, [facility] [place] [facility] [address] [id number] [place] [address] Jun, [facility] [place] [facility] [address] [id number] [place] [address] Jun, [facility] [place] [facility] [address] [id number] [place] [address] May, [facility] [place] [facility] [address] [id number] [place] [address] May, [facility] [place] [facility] [address] [id number] [place] [address] Mar, [facility] [address] [id number] [place] [address] Mar, [facility] [place] [facility] [address] [id number] [place] [address] Feb, [facility] [place] [facility] [address] [id number] [place] [address] Feb, [facility] [place] [facility] [address] [id number] [place] [address] Feb, [facility] [place] [facility] [address] [id number] [place] [address] Feb, [facility] [place] [facility] [address] [id number] [place] [address] Dec, [facility] [place] [facility] [address] [id number] [place] [address] August, [facility] [place] [facility] [address] [id number] [place] [address] Jul, [facility] [place] [facility] [address] [id number] [place] [address] 05 Jul, 2011 [facility] [place] [facility] [address] [facility] [id number] [place] [address] Jun, [facility] [place] [facility] [address] [id number] [place] [address] Jun, [facility] [place] [facility] [address] [id number] [place] [address] Jun, [facility] [place] [facility] [address] [id number] [place] [address] Jun, [facility] [place] [facility] [address] [id number] [place] [address] Jun, [facility] [place] [facility] [address] [facility] [id number] [place] [address] May, [facility] [place] [address] [facility] [id number] [place] [address] May, [facility] [place] [address] [facility] [id number] [place] [address] May, [facility] [place] [address] [facility] [id number] [place] [address] May, [facility] [place] [address] [facility] [id number] [place] [address] Apr, [facility] [place] [address] [facility] [id number] [place] [address] Apr, [facility] [place] [address] [facility] [id number] [place] [address] Apr, [facility] [place] [address] [facility] [id number] [place] [address] Mar, [facility] [place] [address] [facility] [id number] [place] [address] Mar, [facility] [place] [address] [facility] [id number] [place] [address] Mar, [facility] [place] [address] [id number] [place] [address] Mar, [facility] [place] [address] [id number] [place] [address] May, [facility] [place] [address] [facility] [id number] [place] [address] Feb, [facility] [place] [address] [facility] [id number] [place] [address] Feb, [facility] [place] [address] [facility] [id number] [place] [address] Jan, [facility] [place] [address] [facility] [id number] [place] [address] Jan, IMMUNIZATIONS No Known Immunizations SOCIAL HISTORY Never Assessed REASON FOR VISIT Refill request PLAN OF CARE VITAL SIGNS MEDICATIONS Medication Instructions Dosage Frequency Start Date End Date Duration Status Ventolin HFA 108 (90 Base) MCG/ACT Inhalation every 6 hrs 2 puffs as needed 6h 14 Nov, 2017 30 days Active RESULTS No Results PROCEDURES No [...]
--- OUTSIDE RECORDS SUMMARY | 2018-09-19 01:29 | XMS REPORT ---
Author Author SAMMY ARZATE Organization [facility] Address [address] [place] [address] Care Team Providers Care Skiver Heel Tap Name Role Phone SAMMY ARZATE Unavailable PROBLEMS Type Condition ICD9-CM Code FAQ57-NG Code Onset Dates Condition Status SNOMED Code Problem 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 Active 237497813 Problem Screening, lipid Z13.220 Active 504841266 Problem Shortness of breath R06.02 Active 629786955 Problem Benign prostatic hyperplasia, unspecified whether lower urinary tract symptoms present N40.0 Active 539107016 Problem Osteoarthritis, unspecified osteoarthritis type, unspecified site M19.90 Active 102278456 Problem 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 Active 194491930 Problem Gastroesophageal reflux disease without esophagitis K21.9 Active 032536815 Problem Other chronic pain G89.29 Active 47412863 ALLERGIES No Information ENCOUNTERS Encounter Location Date Diagnosis [place] [id number] [place] [address] Jan, [place] [id number] [place] [address] Nov, Osteoarthritis, unspecified osteoarthritis type, unspecified site M19.90 [facility] [id number] [place] [address] Nov, Shortness of breath R06.02 [place] [id number] [place] [address] Nov, [facility] [address] [place] [id number] [place] [address] Nov, [facility] [address] [place] [id number] [place] [address] Oct, Osteoarthritis, unspecified osteoarthritis type, unspecified site M19.90 [facility] [address] [address] Sep, [facility] [address] [place] [id number] [place] [address] Sep, Osteoarthritis, unspecified osteoarthritis type, unspecified site M19.90 [facility] [address] [place] [id number] [place] [address] August, Other chronic pain G89.29 and Other specified personal risk factors, not elsewhere classified Z91.89 [place] [address] [place] [id number] [place] [address] August, Osteoarthritis, unspecified osteoarthritis type, unspecified site M19.90 [place] [address] [place] [id number] [place] [address] Jul, Osteoarthritis, unspecified osteoarthritis type, unspecified site M19.90 [place] [address] [place] [id number] [place] [address] Jun, Osteoarthritis, unspecified osteoarthritis type, unspecified site M19.90 [place] [address] [place] [id number] [address] Jun, [place] [address] [place] [id number] [address] Jun, Osteoarthritis, unspecified osteoarthritis type, unspecified site M19.90 [place] [address] [address] May, [facility] [address] [address] May, Benign prostatic hyperplasia, unspecified whether lower urinary tract symptoms present N40.0 [place] [address] [address] 05 May, 2017 Osteoarthritis, unspecified osteoarthritis type, unspecified site M19.90 [place] [address] [place] [id number] [address] May, [place] [address] [place] [id number] [place] [address] Apr, Other chronic pain G89.29 ; Family history of diabetes mellitus Z83.3 ; Forgetfulness R68.89 ; History of multiple concussions Z87.820 ; Gastroesophageal reflux disease without esophagitis K21.9 and Screening, lipid Z13.220 [place] [address] [place] [id number] [place] [address] Apr, Other chronic pain G89.29 ; Forgetfulness R68.89 ; History of multiple concussions Z87.820 ; Gastroesophageal reflux disease without esophagitis K21.9 ; Screening, lipid Z13.220 and Family history of diabetes mellitus Z83.3 [place] [address] [place] [id number] [place] [address] Apr, Osteoarthritis, unspecified osteoarthritis type, unspecified site M19.90 [place] [address] [place] [id number] [place] [address] Apr, Osteoarthritis, unspecified osteoarthritis type, unspecified site M19.90 [place] [address] [place] [id number] [place] [address] Apr, [place] [address] [place] [id number] [place] [address] Mar, Osteoarthritis, unspecified osteoarthritis type, unspecified site M19.90 [place] [address] [place] [id number] [place] [address] Feb, Osteoarthritis, unspecified osteoarthritis type, unspecified site M19.90 [place] [address] [place] [id number] [place] [address] Jan, Osteoarthritis, unspecified osteoarthritis type, unspecified site M19.90 [place] [id number] [place] [address] Dec, Osteoarthritis, unspecified osteoarthritis type, unspecified site M19.90 [facility] [address] [address] Dec, [facility] [address] [place] [id number] [place] [address] Nov, Encounter for screening for lipid disorder Z13.220 [facility] [id number] [place] [address] Nov, Osteoarthritis, unspecified osteoarthritis type, unspecified site M19.90 ; Encounter for screening for lipid disorder Z13.220 and Other chronic pain G89.29 [facility] [address] [place] [id number] [place] [address] Nov, Osteoarthritis, unspecified osteoarthritis type, unspecified site M19.90 [place] [id number] [place] [address] Nov, [place] [address] [place] [id number] [place] [address] Nov, [facility] [address] [place] [id number] [place] [address] Oct, Osteoarthritis, unspecified osteoarthritis type, unspecified site M19.90 [facility] [address] [address] Oct, Gastroesophageal reflux disease without esophagitis K21.9 [facility] [id number] [place] [address] Sep, Osteoarthritis, unspecified osteoarthritis type, unspecified site M19.90 [facility] [address], [place] [address] August, Osteoarthritis, unspecified osteoarthritis type, unspecified site M19.90 [facility] [address], [place] [address] August, Osteoarthritis, unspecified osteoarthritis type, unspecified site M19.90 [facility] [id number] [place] [address] Jul, Osteoarthritis, unspecified osteoarthritis type, unspecified site M19.90 and Gastroesophageal reflux disease without esophagitis K21.9 [facility] [address] [place] [id number] [place] [address] Jul, Osteoarthritis, unspecified osteoarthritis type, unspecified site M19.90 [facility] [address] [place] [id number] [place] [address] Jun, Ventral hernia without obstruction or gangrene K43.9 [facility] [address] [place] [id number] [place] [address] Jun, Osteoarthritis, unspecified osteoarthritis type, unspecified site M19.90 [facility] [address] [place] [id number] [place] [address] May, [place] [address] [place] [id number] [place] [address] May, Osteoarthritis, unspecified osteoarthritis type, unspecified site M19.90 [facility] [address] [place] [id number] [place] [address] Apr, Osteoarthritis, unspecified osteoarthritis type, unspecified site M19.90 [facility] [address] [place] [id number] [place] [address] Mar, [facility] [address] [place] [id number] [place] [address] Mar, Osteoarthritis, unspecified osteoarthritis type, unspecified site M19.90 and Lumbago with sciatica, left side M54.42 [facility] [address] [place] [id number] [place] [address] Feb, [facility] [address] [place] [id number] [place] [address] Feb, [facility] [id number] [place] [address] Feb, Osteoarthritis, unspecified osteoarthritis type, unspecified site M19.90 [place] [address] [place] [id number] [place] [address] Feb, [place] [address] [address] Feb, Low back pain M54.5 and Other chronic pain G89.29 [place] [address] [address] Feb, [place] [address] [address] Jan, [place] [address] [address] 05 Jan, 2016 [facility] [place] [address] [address] 24 Dec, 2015 Lumbago with sciatica, left side M54.42 [place] [address] [address] 15 Dec, 2015 Irritable bowel syndrome with both constipation and diarrhea K58.0 ; Screening, lipid Z13.220 ; Nocturia R35.1 ; Family history of diabetes mellitus Z83.3 and Dysuria R30.0 [place] [address] [place] [id number] [place] [address] 14 Dec, 2015 Irritable bowel syndrome with both constipation and diarrhea K58.0 ; Nocturia R35.1 ; Family history of diabetes mellitus Z83.3 ; Dysuria R30.0 and Screening, lipid Z13.220 [place] [address] [place] [id number] [place] [address] 12 Dec, 2015 [place] [address] [address] 07 Dec, 2015 [facility] [address] [place] [id number] [place] [address] 2015 Pain with swallowing R13.10 [place] [address] [address] Nov, [facility] [address] [place] [id number] [place] [address] Nov, [facility] [address] [place] [id number] [place] [address] Oct, [facility] [address] [place] [id number] [place] [address] Sep, [facility] [address] [place] [id number] [place] [address] Sep, Osteoarthritis, unspecified osteoarthritis type, unspecified site M19.90 [facility] [address] [place] [id number] [place] [address] Sep, Back pain M54.9 [facility] [address] [place] [id number] [place] [address] Sep, Lumbago with sciatica, right side M54.41 and Bilateral impacted cerumen H61.23 [facility] [address] [place] [id number] [place] [address] Sep, [facility] [address] [place] [id number] [place] [address] August, Bronchitis J40 [facility] [address] [place] [id number] [place] [address] August, [facility] [address] [place] [id number] [place] [address] August, [facility] [id number] [place] [address] August, [facility] [address] [place] [id number] [place] [address] Jul, [facility] [address] [place] [id number] [address] Jul, Back pain M54.9 [facility] [address] [place] [id number] [place] [address] Jun, Degenerative disc disease at L5-S1 level M51.36 and Bronchitis J40 [facility] [address] [place] [id number] [place] [address] Jun, [facility] [place] [address] [place] [id number] [place] [address] May, [facility] [address] [address] Apr, [facility] [address] [place] [id number] [place] [address] Mar, [facility] [address] [place] [id number] [place] [address] Mar, [facility] [address] [place] [id number] [place] [address] Feb, [facility] [address] [place] [id number] [place] [address] Jan, [facility] [address] [place] [id number] [place] [address] Dec, [facility] [address] [place] [id number] [place] [address] Nov, [facility] [address] [place] [id number] [place] [address] Oct, [facility] [address] [place] [id number] [place] [address] Oct, Right shoulder pain 719.41 [facility] [address] [place] [id number] [place] [address] Sep, [facility] [address] [place] [id number] [place] [address] Sep, Vertigo 780.4 and Elbow fracture, right 812.40 [facility] [address] [place] [id number] [place] [address] Sep, [facility] [place] [facility] [address] [id number] [place] [address] August, [facility] [place] [facility] [address] [id number] [place] [address] 14 Jul, 2014 [facility] [place] [facility] [address] [id number] [place] [address] Jul, [facility] [place] [facility] [address] [id number] [place] [address] Jun, [facility] [place] [facility] [address] [id number] [place] [address] Jun, [facility] [place] [facility] [address] [id number] [place] [address] Jun, [facility] [place] [facility] [address] [facility] [id number] [place] [address] Jun, [facility] [place] [facility] [address] [id number] [place] [address] Jun, [facility] [place] [facility] [address] [facility] [id number] [place] [address] Jun, [facility] [place] [facility] [address] [facility] [id number] [place] [address] May, [facility] [place] [facility] [address] [facility] [id number] [place] [address] May, [facility] [place] [facility] [address] [id number] [address] May, [facility] [place] [facility] [address] [id number] [place] [address] May, [facility] [place] [facility] [address] [id number] [place] [address] May, [facility] [place] [facility] [address] [facility] [id number] [place] [address] May, [facility] [place] [facility] [address] [facility] [id number] [address] Apr, [facility] [address] [id number] [place] [address] Apr, [facility] [place] [facility] [address] [id number] [place] [address] Apr, [facility] [place] [facility] [address] [facility] [id number] [place] [address] Apr, [facility] [place] [facility] [address] [id number] [place] [address] Apr, [facility] [place] [facility] [address] [id number] [place] [address] Apr, [facility] [place] [facility] [address] [id number] [place] [address] Apr, [facility] [address] [facility] [id number] [place] [address] Mar, [facility] [place] [facility] [address] [id number] [place] [address] Mar, [facility] [place] [facility] [address] [facility] [id number] [place] [address] Mar, [facility] [place] [facility] [address] [facility] [id number] [place] [address] Mar, [facility] [place] [facility] [address] [id number] [place] [address] 31 Mar, 2014 [facility] [place] [facility] [address] [id number] [place] [address] 31 Mar, 2014 [facility] [place] [facility] [address] [id number] [place] [address] 30 Mar, 2014 [facility] [place] [facility] [address] [facility] [id number] [place] [address] 30 Mar, 2014 [facility] [place] [facility] [address] [facility] [id number] [place] [address] Mar, [facility] [place] [facility] [address] [id number] [place] [address] Mar, [facility] [place] [facility] [address] [id number] [place] [address] Mar, [facility] [place] [facility] [address] [id number] [place] [address] Mar, [facility] [place] [facility] [address] [id number] [place] [address] Mar, [facility] [place] [facility] [address] [id number] [place] [address] Mar, [facility] [place] [facility] [address] [id number] [place] [address] Mar, [facility] [place] [facility] [address] [id number] [place] [address] Feb, [facility] [place] [facility] [address] [id number] [place] [address] Feb, [facility] [place] [facility] [address] [id number] [place] [address] Feb, [facility] [place] [facility] [address] [id number] [place] [address] Feb, [facility] [place] [facility] [address] [id number] [place] [address] Feb, [facility] [place] [facility] [address] [id number] [place] [address] Feb, [facility] [place] [facility] [address] [id number] [place] [address] Jan, [facility] [place] [facility] [address] [id number] [place] [address] Jan, [facility] [place] [facility] [address] [id number] [place] [address] Jan, [facility] [place] [facility] [address] [id number] [place] [address] Jan, [facility] [place] [facility] [address] [id number] [place] [address] Jan, [facility] [place] [facility] [address] [id number] [place] [address] Jan, [facility] [place] [facility] [address] [id number] [place] [address] Dec, 2013 [facility] [place] [facility] [address] [id number] [place] [address] 29 Dec, 2013 [facility] [place] [facility] [address] [id number] [place] [address] Dec, 2013 [facility] [place] [facility] [address] [id number] [place] [address] Dec, 2013 [facility] [place] [facility] [address] [id number] [place] [address] Dec, 2013 [facility] [place] [facility] [address] [id number] [place] [address] 08 Dec, 2013 [facility] [place] [facility] [address] [id number] [place] [address] Dec, 2013 [facility] [place] [facility] [address] [id number] [place] [address] Dec, 2013 [facility] [place] [facility] [address] [id number] [address] Dec, 2013 [facility] [place] [facility] [address] [id number] [address] Dec, 2013 [facility] [place] [facility] [address] [id number] [place] [address] Dec, [facility] [place] [facility] [address] [id number], [place] [address] Nov, [facility] [place] [facility] [address] [id number] [place] [address] Nov, [facility] [place] [facility] [address] [id number] [place] [address] Nov, [facility] [place] [facility] [address] [id number] [place] [address] Nov, [facility] [place] [facility] [address] [id number] [place] [address] Nov, [facility] [place] [facility] [address] [id number] [place] [address] Nov, [facility] [place] [facility] [address] [id number] [place] [address] Nov, [facility] [place] [facility] [address] [id number] [place] [address] Nov, [facility] [place] [facility] [address] [id number] [place] [address] Nov, [facility] [place] [facility] [address] [id number] [place] [address] Nov, [facility] [place] [facility] [address] [id number] [place] [address] Oct, [facility] [place] [facility] [address] [id number] [place] [address] Oct, [facility] [place] [facility] [address] [id number] [place] [address] Oct, [facility] [place] [facility] [address] [id number] [place] [address] Oct, [facility] [place] [facility] [address] [id number] [place] [address] Oct, [facility] [place] [facility] [address] [id number] [place] [address] Oct, [facility] [place] [facility] [address] [id number] [place] [address] Oct, [facility] [place] [facility] [address] [id number] [place] [address] Oct, [facility] [place] [facility] [address] [id number] [place] [address] Oct, [facility] [place] [facility] [address] [id number] [place] [address] Oct, [facility] [place] [facility] [address] [id number] [place] [address] Oct, [facility] [place] [facility] [address] [id number] [place] [address] Oct, [facility] [place] [facility] [address] [id number] [place] [address] Oct, [facility] [place] [facility] [address] [id number] [place] [address] Sep, [facility] [place] [facility] [address] [id number] [place] [address] Sep, [facility] [place] [facility] [address] [id number] [place] [address] Sep, [facility] [place] [facility] [address] [id number] [place] [address] Sep, [facility] [place] [facility] [address] [id number] [place] [address] August, [facility] [place] [facility] [address] [id number] [place] [address] August, [facility] [place] [facility] [address] [id number] [place] [address] August, [facility] [place] [facility] [address] [id number] [place] [address] August, [facility] [place] [facility] [address] [id number] [place] [address] August, [facility] [place] [facility] [address] [id number] [place] [address] August, [facility] [place] [facility] [address] [id number] [place] [address] August, [facility] [place] [facility] [address] [id number] [place] [address] August, [facility] [place] [facility] [address] [id number] [place] [address] Jul, [facility] [place] [facility] [address] [id number] [place] [address] Jul, [facility] [place] [facility] [address] [id number] [place] [address] Jun, [facility] [place] [facility] [address] [id number] [place] [address] Jun, [facility] [place] [facility] [address] [id number] [place] [address] Jun, [facility] [place] [facility] [address] [id number] [place] [address] Jun, [facility] [place] [facility] [address] [id number] [place] [address] Jun, [facility] [place] [facility] [address] [id number] [place] [address] Jun, [facility] [place] [facility] [address] [id number] [place] [address] May, [facility] [place] [facility] [address] [id number] [place] [address] May, [facility] [place] [facility] [address] [id number] [place] [address] May, [facility] [place] [facility] [address] [id number] [place] [address] May, [facility] [place] [facility] [address] [id number] [place] [address] May, [facility] [place] [facility] [address] [facility] [id number] [place] [address] May, [facility] [place] [facility] [address] [id number] [place] [address] Apr, [facility] [place] [facility] [address] [id number] [place] [address] Apr, [facility] [place] [facility] [address] [id number] [place] [address] 15 Feb, 2013 [facility] [place] [facility] [address] [id number] [place] [address] 15 Feb, 2013 [facility] [place] [facility] [address] [id number] [place] [address] 15 Feb, 2013 [facility] [place] [facility] [address] [id number] [place] [address] 15 Feb, 2013 [facility] [place] [facility] [address] [id number] [place] [address] Feb, [facility] [place] [facility] [address] [id number] [place] [address] Feb, [facility] [place] [facility] [address] [id number] [place] [address] Feb, [facility] [place] [facility] [address] [id number] [place] [address] Feb, [facility] [place] [facility] [address] [id number] [place] [address] Feb, [facility] [place] [facility] [address] [id number] [place] [address] Jan, [facility] [place] [facility] [address] [id number] [place] [address] Jan, [facility] [place] [facility] [address] [id number] [place] [address] 10 Jan, 2013 [facility] [place] [facility] [address] [id number] [place] [address] 06 Jan, 2013 [facility] [place] [facility] [address] [id number] [place] [address] Jan, [facility] [place] [facility] [address] [id number] [place] [address] Jan, [facility] [place] [facility] [address] [id number] [place] [address] Dec, [facility] [place] [facility] [address] [id number] [place] [address] Dec, [facility] [place] [facility] [address] [id number] [place] [address] Dec, [facility] [place] [facility] [address] [id number] [place] [address] Dec, [facility] [place] [facility] [address] [id number] [place] [address] Oct, [facility] [place] [facility] [address] [id number] [place] [address] Oct, [facility] [place] [facility] [address] [id number] [place] [address] Oct, [facility] [place] [facility] [address] [id number] [place] [address] Oct, [facility] [place] [facility] [address] [id number] [place] [address] Oct, [facility] [place] [facility] [address] [id number] [place] [address] Sep, [facility] [place] [facility] [address] [id number] [address] August, [facility] [place] [facility] [address] [id number] [place] [address] August, [facility] [place] [facility] [address] [id number] [place] [address] August, [facility] [place] [facility] [address] [id number] [place] [address] August, [facility] [place] [facility] [address] [id number] [place] [address] August, [facility] [address] [id number] [place] [address] August, [facility] [address] [id number] [place] [address] August, [facility] [place] [address] [id number] [place] [address] August, [facility] [address] [id number] [place] [address] August, [facility] [address] [id number] [place] [address] August, [facility] [place] [address] [id number] [place] [address] August, [facility] [place] [address] [id number] [place] [address] August, [facility] [place] [address] [id number] [place] [address] Jun, [facility] [address] [id number] [place] [address] Jun, [facility] [place] [address] [id number] [place] [address] Jun, [facility] [place] [address] [id number] [place] [address] May, [facility] [place] [address] [id number] [place] [address] May, [facility] [address] [id number] [place] [address] Mar, [facility] [address] [id number] [place] [address] Mar, [facility] [address] [id number] [place] [address] Feb, [facility] [address] [id number] [place] [address] Feb, [facility] [place] [facility] [address] [id number] [place] [address] Feb, [facility] [place] [facility] [address] [id number] [place] [address] Feb, [facility] [place] [facility] [address] [id number] [place] [address] Dec, [facility] [place] [facility] [address] [id number] [place] [address] August, [facility] [place] [facility] [address] [id number] [place] [address] Jul, [facility] [place] [facility] [address] [id number] [place] [address] Jul, [facility] [place] [facility] [address] [id number] [place] [address] Jun, [facility] [place] [facility] [address] [id number] [place] [address] Jun, [facility] [place] [facility] [address] [id number] [place] [address] Jun, [facility] [place] [facility] [address] [id number] [place] [address] Jun, [facility] [place] [facility] [address] [id number] [address] Jun, [facility] [place] [facility] [address] [id number] [place] [address] May, [facility] [place] [facility] [address] [id number] [place] [address] May, [facility] [place] [facility] [address] [id number] [place] [address] 14 May, 2011 [facility] [place] [facility] [id number] [address] May, [facility] [id number] [address] Apr, [facility] [id number] [address] Apr, [facility] [id number] [address] Apr, [facility] [id number] [address] Mar, [facility] [id number] [place] [address] Mar, [facility] [id number] [address] Mar, [facility] [id number] [address] Mar, [facility] [id number] [place] [address] May, [facility] [id number] [place] [address] Feb, [facility] [id number] [address] Feb, [facility] [id number] [address] Jan, [facility] [id number] [address] Jan, IMMUNIZATIONS No Known Immunizations SOCIAL HISTORY Never Assessed REASON FOR VISIT Controlled Med Refill 11/18/17 PLAN OF CARE VITAL SIGNS MEDICATIONS Medication Instructions Dosage Frequency Start Date End Date Duration Status Oxycodone HCl 10 MG Orally Once a day 1 tablet 24h 22 Oct, 2017 28 days Active Xanax 1 MG [...]
--- OUTSIDE RECORDS SUMMARY | 2018-09-19 01:30 | XMS REPORT ---
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 [employer] Name Role Phone SAMMY ARZATE Unavailable PROBLEMS Type Condition ICD9-CM Code QDG34-VQ Code Onset Dates Condition Status SNOMED Code Problem 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 Active 341257855 Problem Screening, lipid Z13.220 Active 328184195 Problem Shortness of breath R06.02 Active 494837272 Problem Benign prostatic hyperplasia, unspecified whether lower urinary tract symptoms present N40.0 Active 309042301 Problem Osteoarthritis, unspecified osteoarthritis type, unspecified site M19.90 Active 705660019 Problem 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 Active 870243794 Problem Gastroesophageal reflux disease without esophagitis K21.9 Active 990454959 Problem Other chronic pain G89.29 Active 64412249 ALLERGIES No Information ENCOUNTERS Encounter Location Date Diagnosis [place] [id number] [place] [address] Nov, Osteoarthritis, unspecified osteoarthritis type, unspecified site M19.90 [place] [address] [place] [id number] [place] [address] Nov, Shortness of breath R06.02 [facility] [id number] [place] [address] Nov, [place] [address] [place] [id number] [place] [address] Nov, [place] [address] [place] [id number] [place] [address] Oct, Osteoarthritis, unspecified osteoarthritis type, unspecified site M19.90 [place] [address] [place] [id number] [place] [address] Sep, [facility] [address] [address] Sep, Osteoarthritis, unspecified osteoarthritis type, unspecified site M19.90 [facility] [address] [address] August, Other chronic pain G89.29 and Other specified personal risk factors, not elsewhere classified Z91.89 [place] [address] [place] [id number] [place] [address] August, Osteoarthritis, unspecified osteoarthritis type, unspecified site M19.90 [place] [address] [place] [id number] [place] [address] Jul, Osteoarthritis, unspecified osteoarthritis type, unspecified site M19.90 [place] [address] [address] Jun, Osteoarthritis, unspecified osteoarthritis type, unspecified site M19.90 [place] [address] [place] [address] Jun, [place] [address] [place] [id number] [address] Jun, Osteoarthritis, unspecified osteoarthritis type, unspecified site M19.90 [place] [address] [address] May, [place] [address] [place] [address] May, Benign prostatic hyperplasia, unspecified whether lower urinary tract symptoms present N40.0 [place] [address] [place] [id number] [place] [address] May, Osteoarthritis, unspecified osteoarthritis type, unspecified site M19.90 [facility] [address] [address] May, [place] [address] [place] [id number] [address] 30 Apr, 2017 Other chronic pain G89.29 ; Family history of diabetes mellitus Z83.3 ; Forgetfulness R68.89 ; History of multiple concussions Z87.820 ; Gastroesophageal reflux disease without esophagitis K21.9 and Screening, lipid Z13.220 [place] [address] [place] [id number] [place] [address] Apr, Other chronic pain G89.29 ; Forgetfulness R68.89 ; History of multiple concussions Z87.820 ; Gastroesophageal reflux disease without esophagitis K21.9 ; Screening, lipid Z13.220 and Family history of diabetes mellitus Z83.3 [place] [address] [place] [id number] [place] [address] Apr, Osteoarthritis, unspecified osteoarthritis type, unspecified site M19.90 [place] [address] [place] [id number] [place] [address] Apr, Osteoarthritis, unspecified osteoarthritis type, unspecified site M19.90 [place] [address] [place] [id number] [place] [address] Apr, [place] [address] [place] [id number] [place] [address] Mar, Osteoarthritis, unspecified osteoarthritis type, unspecified site M19.90 [place] [address] [place] [id number] [place] [address] Feb, Osteoarthritis, unspecified osteoarthritis type, unspecified site M19.90 [place] [address] [place] [id number] [place] [address] Jan, Osteoarthritis, unspecified osteoarthritis type, unspecified site M19.90 [place] [address] [place] [id number] [place] [address] Dec, Osteoarthritis, unspecified osteoarthritis type, unspecified site M19.90 [place] [address] [place] [id number] [place] [address] Dec, [facility] [address] [address] Nov, Encounter for screening for lipid disorder Z13.220 [facility] [address] [place] [id number] [place] [address] Nov, Osteoarthritis, unspecified osteoarthritis type, unspecified site M19.90 ; Encounter for screening for lipid disorder Z13.220 and Other chronic pain G89.29 [place] [address] [place] [id number] [place] [address] Nov, Osteoarthritis, unspecified osteoarthritis type, unspecified site M19.90 [place] [address] [place] [id number] [place] [address] Nov, [place] [address] [place] [id number] [place] [address] Nov, [place] [address] [place] [id number] [place] [address] Oct, Osteoarthritis, unspecified osteoarthritis type, unspecified site M19.90 [place] [address] [place] [id number] [place] [address] Oct, Gastroesophageal reflux disease without esophagitis K21.9 [place] [address] [place] [address] Sep, Osteoarthritis, unspecified osteoarthritis type, unspecified site M19.90 [place] [address] [place] [id number] [place] [address] August, Osteoarthritis, unspecified osteoarthritis type, unspecified site M19.90 [place] [address] [place] [id number] [place] [address] August, Osteoarthritis, unspecified osteoarthritis type, unspecified site M19.90 [place] [address] [place] [address] Jul, Osteoarthritis, unspecified osteoarthritis type, unspecified site M19.90 and Gastroesophageal reflux disease without esophagitis K21.9 [facility] [address] [place] [id number] [place] [address] Jul, Osteoarthritis, unspecified osteoarthritis type, unspecified site M19.90 [facility] [address] [place] [id number] [place] [address] Jun, Ventral hernia without obstruction or gangrene K43.9 [facility] [address] [place] [id number] [place] [address] Jun, Osteoarthritis, unspecified osteoarthritis type, unspecified site M19.90 [facility] [address] [place] [id number] [place] [address] May, [place] [address] [place] [id number] [place] [address] May, Osteoarthritis, unspecified osteoarthritis type, unspecified site M19.90 [place] [address] [place] [id number] [place] [address] Apr, Osteoarthritis, unspecified osteoarthritis type, unspecified site M19.90 [facility] [address] [place] [id number] [place] [address] Mar, [place] [address] [place] [id number] [place] [address] Mar, Osteoarthritis, unspecified osteoarthritis type, unspecified site M19.90 and Lumbago with sciatica, left side M54.42 [facility] [address] [place] [id number] [place] [address] Feb, [facility] [address] [place] [id number] [place] [address] Feb, [facility] [address] [place] [address] Feb, Osteoarthritis, unspecified osteoarthritis type, unspecified site M19.90 [facility] [address] [place] [id number] [place] [address] Feb, [facility] [address] [place] [id number] [place] [address] 17 Feb, 2016 Low back pain M54.5 and Other chronic pain G89.29 [place] [address] [place] [id number] [place] [address] Feb, [place] [address] [place] [id number] [place] [address] Jan, [place] [address] [address] Jan, [facility] [address] [address] 24 Dec, 2015 Lumbago with sciatica, left side M54.42 [place] [address] [address] 15 Dec, 2015 Irritable bowel syndrome with both constipation and diarrhea K58.0 ; Screening, lipid Z13.220 ; Nocturia R35.1 ; Family history of diabetes mellitus Z83.3 and Dysuria R30.0 [place] [address] [place] [id number] [place] [address] 14 Dec, 2015 Irritable bowel syndrome with both constipation and diarrhea K58.0 ; Nocturia R35.1 ; Family history of diabetes mellitus Z83.3 ; Dysuria R30.0 and Screening, lipid Z13.220 [place] [address] [place] [id number] [place] [address] 12 Dec, 2015 [place] [address] [place] [id number] [place] [address] 07 Dec, 2015 [facility] [address] [place] [id number] [place] [address] 2015 Pain with swallowing R13.10 [place] [address] [place] [id number] [place] [address] Nov, [place] [address] [address] Nov, [facility] [address] [place] [id number] [place] [address] Oct, [facility] [address] [place] [id number] [place] [address] Sep, [facility] [address] [place] [id number] [place] [address] Sep, Osteoarthritis, unspecified osteoarthritis type, unspecified site M19.90 [facility] [address] [place] [id number] [place] [address] 07 Sep, 2015 Back pain M54.9 [facility] [address] [place] [id number] [place] [address] Sep, Lumbago with sciatica, right side M54.41 and Bilateral impacted cerumen H61.23 [facility] [address] [place] [id number] [place] [address] Sep, [facility] [address] [place] [id number] [place] [address] August, Bronchitis J40 [facility] [address] [place] [id number] [place] [address] August, [facility] [address] [place] [id number] [place] [address] August, [facility] [address] [place] [id number] [place] [address] August, [facility] [address] [place] [id number] [place] [address] Jul, [facility] [address] [place] [id number] [place] [address] Jul, Back pain M54.9 [facility] [address] [place] [id number] [place] [address] Jun, Degenerative disc disease at L5-S1 level M51.36 and Bronchitis J40 [facility] [address] [address] Jun, [facility] [address] [place] [id number] [place] [address] May, [facility] [address] [address] Apr, [facility] [address] [place] [id number] [place] [address], [place] [address] Mar, [facility] [address] [place] [id number] [place] [address], [place] [address] Mar, [facility] [address] [place] [id number] [place] [address], [place] [address] Feb, [facility] [address] [place] [id number] [place] [address] Jan, [facility] [address] [place] [id number] [place] [address] Dec, [facility] [address] [address] Nov, [facility] [address] [place] [id number] [place] [address] Oct, [facility] [address] [address] Oct, Right shoulder pain 719.41 [facility] [address] [address] Sep, [facility] [address] [address] Sep, Vertigo 780.4 and Elbow fracture, right 812.40 [facility] [address] [address] Sep, [facility] [address] [address] August, [facility] [place] [facility] [address] [id number] [place] [address] 14 Jul, 2014 [facility] [place] [facility] [address] [id number] [place] [address] Jul, [facility] [place] [facility] [address] [id number] [place] [address] Jun, [facility] [place] [facility] [address] [id number] [place] [address] Jun, [facility] [place] [facility] [address] [id number] [place] [address] Jun, [facility] [place] [facility] [address] [id number] [place] [address] Jun, [facility] [place] [facility] [address] [facility] [id number] [place] [address] Jun, [facility] [place] [facility] [address] [id number] [place] [address] Jun, [facility] [place] [facility] [address] [facility] [id number] [place] [address] May, [facility] [place] [facility] [address] [facility] [id number] [place] [address] May, [facility] [place] [facility] [address] [place] [id number] [place] [address] May, [facility] [place] [facility] [address] [id number] [address] May, [facility] [place] [facility] [address] [facility] [id number] [place] [address] May, [facility] [place] [facility] [address] [id number] [place] [address] May, [facility] [place] [facility] [address] [facility] [id number] [place] [address] Apr, [facility] [place] [facility] [address] [facility] [id number] [address] Apr, [facility] [address] [id number] [place] [address] Apr, [facility] [place] [facility] [address] [id number] [place] [address] Apr, [facility] [place] [facility] [address] [facility] [id number] [place] [address] Apr, [facility] [place] [facility] [address] [id number] [place] [address] Apr, [facility] [place] [facility] [address] [id number] [place] [address] Apr, [facility] [place] [facility] [address] [id number] [place] [address] Mar, [facility] [address] [facility] [id number] [place] [address] Mar, [facility] [place] [facility] [address] [id number] [place] [address] Mar, [facility] [place] [facility] [address] [id number] [place] [address] Mar, [facility] [place] [facility] [address] [facility] [id number] [place] [address] Mar, [facility] [place] [facility] [address] [id number] [place] [address] 31 Mar, 2014 [facility] [place] [facility] [address] [id number] [place] [address] 30 Mar, 2014 [facility] [place] [facility] [address] [id number] [place] [address] 30 Mar, 2014 [facility] [place] [facility] [address] [facility] [id number] [place] [address] Mar, [facility] [place] [facility] [address] [facility] [id number] [place] [address] Mar, [facility] [place] [facility] [address] [id number] [place] [address] Mar, [facility] [place] [facility] [address] [id number] [place] [address] Mar, [facility] [place] [facility] [address] [id number] [place] [address] Mar, [facility] [place] [facility] [address] [id number] [place] [address] Mar, [facility] [place] [facility] [address] [id number] [place] [address] Mar, [facility] [place] [facility] [address] [id number] [place] [address] Feb, [facility] [place] [facility] [address] [id number] [place] [address] Feb, [facility] [place] [facility] [address] [id number] [place] [address] Feb, [facility] [place] [facility] [address] [id number] [place] [address] Feb, [facility] [place] [facility] [address] [id number] [place] [address] Feb, [facility] [place] [facility] [address] [id number] [place] [address] Feb, [facility] [place] [facility] [address] [id number] [place] [address] Jan, [facility] [place] [facility] [address] [id number] [place] [address] Jan, [facility] [place] [facility] [address] [id number] [place] [address] Jan, [facility] [place] [facility] [address] [id number] [place] [address] Jan, [facility] [place] [facility] [address] [id number] [place] [address] Jan, [facility] [place] [facility] [address] [id number] [place] [address] Jan, [facility] [place] [facility] [address] [id number] [place] [address] Dec, 2013 [facility] [place] [facility] [address] [id number] [place] [address] 29 Dec, 2013 [facility] [place] [facility] [address] [id number] [place] [address] Dec, 2013 [facility] [place] [facility] [address] [id number] [place] [address] Dec, 2013 [facility] [place] [facility] [address] [id number] [place] [address] Dec, 2013 [facility] [place] [facility] [address] [id number] [place] [address] Dec, 2013 [facility] [place] [facility] [address] [id number] [place] [address] 08 Dec, 2013 [facility] [place] [facility] [address] [id number] [place] [address] Dec, 2013 [facility] [place] [facility] [address] [id number] [place] [address] Dec, 2013 [facility] [place] [facility] [address] [id number] [address] Dec, 2013 [facility] [place] [facility] [address] [id number] [address] Dec, 2013 [facility] [place] [facility] [address] [id number] [place] [address] Nov, [facility] [place] [facility] [address] [id number] [place] [address] Nov, [facility] [place] [facility] [address] [id number] [place] [address] Nov, [facility] [place] [facility] [address] [id number] [place] [address] Nov, [facility] [place] [facility] [address] [id number] [place] [address] Nov, [facility] [place] [facility] [address] [id number] [place] [address] Nov, [facility] [place] [facility] [address] [id number] [place] [address] Nov, [facility] [place] [facility] [address] [id number] [place] [address] Nov, [facility] [place] [facility] [address] [id number] [place] [address] Nov, [facility] [place] [facility] [address] [id number] [place] [address] Nov, [facility] [place] [facility] [address] [id number] [place] [address] Oct, [facility] [place] [facility] [address] [id number] [place] [address] Oct, [facility] [place] [facility] [address] [id number] [place] [address] Oct, [facility] [place] [facility] [address] [id number] [place] [address] Oct, [facility] [place] [facility] [address] [id number] [place] [address] Oct, [facility] [place] [facility] [address] [id number] [place] [address] Oct, [facility] [place] [facility] [address] [id number] [place] [address] Oct, [facility] [place] [facility] [address] [id number] [place] [address] Oct, [facility] [place] [facility] [address] [id number] [place] [address] Oct, [facility] [place] [facility] [address] [id number] [place] [address] Oct, [facility] [place] [facility] [address] [id number] [place] [address] Oct, [facility] [place] [facility] [address] [id number] [place] [address] Oct, [facility] [place] [facility] [address] [id number] [place] [address] Oct, [facility] [place] [facility] [address] [id number] [place] [address] Sep, [facility] [place] [facility] [address] [id number] [place] [address] Sep, [facility] [place] [facility] [address] [id number] [place] [address] Sep, [facility] [place] [facility] [address] [id number] [place] [address] Sep, [facility] [place] [facility] [address] [id number] [place] [address] August, [facility] [place] [facility] [address] [id number] [place] [address] August, [facility] [place] [facility] [address] [id number] [place] [address] August, [facility] [place] [facility] [address] [id number] [place] [address] August, [facility] [place] [facility] [address] [id number] [place] [address] August, [facility] [place] [facility] [address] [id number] [place] [address] August, [facility] [place] [facility] [address] [id number] [place] [address] August, [facility] [place] [facility] [address] [id number] [place] [address] August, [facility] [place] [facility] [address] [id number] [place] [address] Jul, [facility] [place] [facility] [address] [id number] [place] [address] Jul, [facility] [place] [facility] [address] [id number] [place] [address] Jun, [facility] [place] [facility] [address] [id number] [place] [address] Jun, [facility] [place] [facility] [address] [id number] [place] [address] Jun, [facility] [place] [facility] [address] [id number] [place] [address] Jun, [facility] [place] [facility] [address] [id number] [place] [address] Jun, [facility] [place] [facility] [address] [id number] [place] [address] Jun, [facility] [place] [facility] [address] [id number] [place] [address] May, [facility] [place] [facility] [address] [id number] [place] [address] May, [facility] [place] [facility] [address] [id number] [place] [address] May, [facility] [place] [facility] [address] [id number] [place] [address] May, [facility] [place] [facility] [address] [id number] [place] [address] May, [facility] [place] [facility] [address] [id number] [place] [address] May, [facility] [place] [facility] [address] [id number] [place] [address] Apr, [facility] [place] [facility] [address] [id number] [place] [address] Apr, [facility] [place] [facility] [address] [id number] [place] [address] 15 Feb, 2013 [facility] [place] [facility] [address] [id number] [place] [address] 15 Feb, 2013 [facility] [place] [facility] [address] [id number] [place] [address] 15 Feb, 2013 [facility] [place] [facility] [address] [id number] [place] [address] 15 Feb, 2013 [facility] [place] [facility] [address] [id number] [place] [address] Feb, [facility] [place] [facility] [address] [id number] [place] [address] Feb, [facility] [place] [facility] [address] [id number] [place] [address] Feb, [facility] [place] [facility] [address] [id number] [place] [address] Feb, [facility] [place] [facility] [address] [id number] [place] [address] Feb, [facility] [place] [facility] [address] [id number] [place] [address] Jan, [facility] [place] [facility] [address] [id number] [place] [address] Jan, [facility] [place] [facility] [address] [id number] [place] [address] Jan, [facility] [place] [facility] [address] [id number] [place] [address] 06 Jan, 2013 [facility] [place] [facility] [address] [id number] [place] [address] 04 Jan, 2013 [facility] [place] [facility] [address] [id number] [place] [address] Jan, [facility] [address] [id number] [place] [address] Dec, [facility] [place] [facility] [address] [id number] [place] [address] Dec, [facility] [place] [facility] [address] [id number] [place] [address] Dec, [facility] [place] [facility] [address] [id number] [place] [address] Dec, [facility] [address] [id number] [place] [address] Oct, [facility] [place] [facility] [address] [id number] [place] [address] Oct, [facility] [address] [id number] [place] [address] Oct, [facility] [place] [facility] [address] [id number] [place] [address] Oct, [facility] [place] [facility] [address] [id number] [place] [address] Oct, [facility] [place] [facility] [address] [id number] [place] [address] Sep, [facility] [place] [facility] [address] [id number] [place] [address] August, [facility] [place] [facility] [address] [id number] [place] [address] August, [facility] [place] [facility] [address] [id number] [place] [address] August, [facility] [place] [facility] [address] [id number] [place] [address] August, [facility] [place] [facility] [address] [id number] [place] [address] August, [facility] [place] [facility] [address] [id number] [place] [address] August, [facility] [address] [id number] [place] [address] August, [facility] [address] [id number] [place] [address] August, [facility] [address] [id number] [place] [address] August, [facility] [address] [id number] [place] [address] August, [facility] [address] [id number] [place] [address] August, [facility] [address] [id number] [place] [address] August, [facility] [address] [id number] [place] [address] Jun, [facility] [address] [id number] [place] [address] Jun, [facility] [address] [id number] [place] [address] Jun, [facility] [address] [id number] [place] [address] May, [facility] [address] [id number] [place] [address] May, [facility] [address] [id number] [place] [address] Mar, [facility] [address] [id number] [place] [address] Mar, [facility] [address] [id number] [place] [address] Feb, [facility] [address] [id number] [place] [address] Feb, [facility] [address] [id number] [place] [address] Feb, [facility] [place] [facility] [address] [id number] [place] [address] Feb, [facility] [place] [facility] [address] [id number] [place] [address] Dec, [facility] [place] [facility] [address] [id number] [place] [address] August, [facility] [place] [facility] [address] [id number] [place] [address] Jul, [facility] [place] [facility] [address] [id number] [place] [address] Jul, [facility] [place] [facility] [address] [id number] [place] [address] Jun, [facility] [place] [facility] [address] [id number] [place] [address] Jun, [facility] [place] [facility] [address] [id number] [place] [address] Jun, [facility] [place] [facility] [address] [id number] [address] Jun, [facility] [place] [facility] [address] [id number] [place] [address] Jun, [facility] [place] [facility] [address] [id number] [address] May, [facility] [place] [facility] [address] [id number] [place] [address] May, [facility] [place] [facility] [address] [id number] [place] [address] 14 May, 2011 [facility] [place] [facility] [address] [id number] [place] [address] May, [facility] [place] [facility] [id number] [address] Apr, [facility] [id number] [address] Apr, [facility] [id number] [address] Apr, [facility] [id number] [address] Mar, [facility] [id number] [address] Mar, [facility] [id number] [place] [address] Mar, [facility] [id number] [address] Mar, [facility] [id number] [address] May, [facility] [id number] [address] Feb, [facility] [id number] [address] Feb, [facility] [id number] [address] Jan, [facility] [id number] [address] Jan, IMMUNIZATIONS No Known Immunizations SOCIAL HISTORY Never Assessed REASON FOR VISIT Controlled Med Refill PLAN OF CARE VITAL SIGNS MEDICATIONS Medication Instructions Dosage Frequency Start Date End Date Duration Status Oxycodone HCl 10 MG Orally Once a day 1 tablet 24h 21 Sep, 2017 28 days Active Xanax 1 MG [...]
--- OUTSIDE RECORDS SUMMARY | 2018-09-19 01:30 | XMS REPORT ---
Author Author SAMMY ARZATE Organization [facility] Address [address] [place] [address] Care Team Providers Care [place] Manager Name Role Phone SAMMY ARZATE Unavailable PROBLEMS Type Condition ICD9-CM Code RPX32-UH Code Onset Dates Condition Status SNOMED Code Problem 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 Active 810150827 Problem Screening, lipid Z13.220 Active 335754057 Problem Shortness of breath R06.02 Active 784537577 Problem Benign prostatic hyperplasia, unspecified whether lower urinary tract symptoms present N40.0 Active 899993288 Problem Osteoarthritis, unspecified osteoarthritis type, unspecified site M19.90 Active 099937477 Problem 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 Active 793615711 Problem Gastroesophageal reflux disease without esophagitis K21.9 Active 935286066 Problem Other chronic pain G89.29 Active [id number] ALLERGIES No Information ENCOUNTERS Encounter Location Date Diagnosis [place] [id number] [place] [address] Nov, Osteoarthritis, unspecified osteoarthritis type, unspecified site M19.90 [place] [address] [place] [id number] [place] [address] Nov, Shortness of breath R06.02 [facility] [id number] [place] [address] Nov, [place] [address] [place] [id number] [place] [address] Nov, [place] [address] [place] [id number] [place] [address] Oct, Osteoarthritis, unspecified osteoarthritis type, unspecified site M19.90 [place] [address] [place] [id number] [place] [address] Sep, [facility] [address] [address] Sep, Osteoarthritis, unspecified osteoarthritis type, unspecified site M19.90 [facility] [address] [address] August, Other chronic pain G89.29 and Other specified personal risk factors, not elsewhere classified Z91.89 [place] [address] [place] [id number] [place] [address] August, Osteoarthritis, unspecified osteoarthritis type, unspecified site M19.90 [place] [address] [place] [id number] [place] [address] Jul, Osteoarthritis, unspecified osteoarthritis type, unspecified site M19.90 [place] [address] [address] Jun, Osteoarthritis, unspecified osteoarthritis type, unspecified site M19.90 [place] [id number] [place] [address] Jun, [place] [address] [place] [id number] [address] Jun, Osteoarthritis, unspecified osteoarthritis type, unspecified site M19.90 [place] [address] [address] May, [place] [id number] [place] [address] May, Benign prostatic hyperplasia, unspecified whether lower urinary tract symptoms present N40.0 [place] [address] [place] [id number] [place] [address] May, Osteoarthritis, unspecified osteoarthritis type, unspecified site M19.90 [facility] [address] [address] May, [place] [address] [place] [id number] [address] 30 Apr, 2017 Other chronic pain G89.29 ; Family history of diabetes mellitus Z83.3 ; Forgetfulness R68.89 ; History of multiple concussions Z87.820 ; Gastroesophageal reflux disease without esophagitis K21.9 and Screening, lipid Z13.220 [place] [address] [place] [id number] [place] [address] Apr, Other chronic pain G89.29 ; Forgetfulness R68.89 ; History of multiple concussions Z87.820 ; Gastroesophageal reflux disease without esophagitis K21.9 ; Screening, lipid Z13.220 and Family history of diabetes mellitus Z83.3 [place] [address] [place] [id number] [place] [address] Apr, Osteoarthritis, unspecified osteoarthritis type, unspecified site M19.90 [place] [address] [place] [id number] [place] [address] Apr, Osteoarthritis, unspecified osteoarthritis type, unspecified site M19.90 [place] [address] [place] [id number] [place] [address] Apr, [place] [address] [place] [id number] [place] [address] Mar, Osteoarthritis, unspecified osteoarthritis type, unspecified site M19.90 [place] [address] [place] [id number] [place] [address] Feb, Osteoarthritis, unspecified osteoarthritis type, unspecified site M19.90 [place] [address] [place] [id number] [place] [address] Jan, Osteoarthritis, unspecified osteoarthritis type, unspecified site M19.90 [place] [address] [place] [id number] [place] [address] Dec, Osteoarthritis, unspecified osteoarthritis type, unspecified site M19.90 [place] [address] [place] [id number] [place] [address] Dec, [facility] [address] [address] Nov, Encounter for screening for lipid disorder Z13.220 [facility] [address] [place] [id number] [place] [address] Nov, Osteoarthritis, unspecified osteoarthritis type, unspecified site M19.90 ; Encounter for screening for lipid disorder Z13.220 and Other chronic pain G89.29 [place] [address] [place] [id number] [place] [address] Nov, Osteoarthritis, unspecified osteoarthritis type, unspecified site M19.90 [place] [address] [place] [id number] [place] [address] Nov, [place] [address] [place] [id number] [place] [address] Nov, [place] [address] [place] [id number] [place] [address] Oct, Osteoarthritis, unspecified osteoarthritis type, unspecified site M19.90 [place] [address] [place] [id number] [place] [address] Oct, Gastroesophageal reflux disease without esophagitis K21.9 [place] [address] [place] [address] Sep, Osteoarthritis, unspecified osteoarthritis type, unspecified site M19.90 [place] [address] [place] [id number] [place] [address] August, Osteoarthritis, unspecified osteoarthritis type, unspecified site M19.90 [place] [address] [place] [id number] [place] [address] August, Osteoarthritis, unspecified osteoarthritis type, unspecified site M19.90 [place] [address] [place] [address] Jul, Osteoarthritis, unspecified osteoarthritis type, unspecified site M19.90 and Gastroesophageal reflux disease without esophagitis K21.9 [facility] [address] [place] [id number] [place] [address] Jul, Osteoarthritis, unspecified osteoarthritis type, unspecified site M19.90 [facility] [address] [place] [id number] [place] [address] Jun, Ventral hernia without obstruction or gangrene K43.9 [facility] [address] [place] [id number] [place] [address] Jun, Osteoarthritis, unspecified osteoarthritis type, unspecified site M19.90 [facility] [address] [place] [id number] [place] [address] May, [place] [address] [place] [id number] [place] [address] May, Osteoarthritis, unspecified osteoarthritis type, unspecified site M19.90 [place] [address] [place] [id number] [place] [address] Apr, Osteoarthritis, unspecified osteoarthritis type, unspecified site M19.90 [facility] [address] [place] [id number] [place] [address] Mar, [place] [address] [place] [id number] [place] [address] Mar, Osteoarthritis, unspecified osteoarthritis type, unspecified site M19.90 and Lumbago with sciatica, left side M54.42 [facility] [address] [place] [id number] [place] [address] Feb, [facility] [address] [place] [id number] [place] [address] Feb, [facility] [address] [place] [address] Feb, Osteoarthritis, unspecified osteoarthritis type, unspecified site M19.90 [facility] [address] [place] [id number] [place] [address] Feb, [facility] [address] [place] [id number] [place] [address] 17 Feb, 2016 Low back pain M54.5 and Other chronic pain G89.29 [place] [address] [place] [id number] [place] [address] Feb, [place] [address] [place] [id number] [place] [address] Jan, [place] [address] [address] Jan, [facility] [address] [address] 24 Dec, 2015 Lumbago with sciatica, left side M54.42 [place] [address] [address] 15 Dec, 2015 Irritable bowel syndrome with both constipation and diarrhea K58.0 ; Screening, lipid Z13.220 ; Nocturia R35.1 ; Family history of diabetes mellitus Z83.3 and Dysuria R30.0 [place] [address] [place] [id number] [place] [address] 14 Dec, 2015 Irritable bowel syndrome with both constipation and diarrhea K58.0 ; Nocturia R35.1 ; Family history of diabetes mellitus Z83.3 ; Dysuria R30.0 and Screening, lipid Z13.220 [place] [address] [place] [id number] [place] [address] 12 Dec, 2015 [place] [address] [place] [id number] [place] [address] 07 Dec, 2015 [facility] [address] [place] [id number] [place] [address] 2015 Pain with swallowing R13.10 [place] [address] [place] [id number] [place] [address] Nov, [place] [address] [address] Nov, [facility] [address] [place] [id number] [place] [address] Oct, [facility] [address] [place] [id number] [place] [address] Sep, [facility] [address] [place] [id number] [place] [address] Sep, Osteoarthritis, unspecified osteoarthritis type, unspecified site M19.90 [facility] [address] [place] [id number] [place] [address] 07 Sep, 2015 Back pain M54.9 [facility] [address] [place] [id number] [place] [address] Sep, Lumbago with sciatica, right side M54.41 and Bilateral impacted cerumen H61.23 [facility] [address] [place] [id number] [place] [address] Sep, [facility] [address] [place] [id number] [place] [address] August, Bronchitis J40 [facility] [address] [place] [id number] [place] [address] August, [facility] [address] [place] [id number] [place] [address] August, [facility] [address] [place] [id number] [place] [address] August, [facility] [address] [place] [id number] [place] [address] Jul, [facility] [address] [place] [id number] [place] [address] Jul, Back pain M54.9 [facility] [address] [place] [id number] [place] [address] Jun, Degenerative disc disease at L5-S1 level M51.36 and Bronchitis J40 [facility] [address] [address] Jun, [facility] [address] [place] [id number] [place] [address] May, [facility] [address] [address] Apr, [facility] [address] [place] [id number] [place] [address], [place] [address] Mar, [facility] [address] [place] [id number] [place] [address], [place] [address] Mar, [facility] [address] [place] [id number] [place] [address], [place] [address] Feb, [facility] [address] [place] [id number] [place] [address] Jan, [facility] [address] [place] [id number] [place] [address] Dec, [facility] [address] [place] [address] Nov, [facility] [address] [place] [id number] [place] [address] Oct, [facility] [address] [place] [address] Oct, Right shoulder pain 719.41 [facility] [address] [place] [address] Sep, [facility] [address] [place] [address] Sep, Vertigo 780.4 and Elbow fracture, right 812.40 [facility] [address] [address] Sep, [facility] [address] [place] [address] August, [facility] [place] [facility] [address] [id number] [place] [address] 14 Jul, 2014 [facility] [place] [facility] [address] [id number] [place] [address] Jul, [facility] [place] [facility] [address] [id number] [place] [address] Jun, [facility] [place] [facility] [address] [id number] [place] [address] Jun, [facility] [place] [facility] [address] [id number] [place] [address] Jun, [facility] [place] [facility] [address] [id number] [place] [address] Jun, [facility] [place] [facility] [address] [facility] [id number] [place] [address] Jun, [facility] [place] [facility] [address] [id number] [place] [address] Jun, [facility] [place] [facility] [address] [facility] [id number] [place] [address] May, [facility] [place] [facility] [address] [facility] [id number] [place] [address] May, [facility] [place] [facility] [address] [place] [id number] [place] [address] May, [facility] [place] [facility] [address] [id number] [address] May, [facility] [place] [facility] [address] [facility] [id number] [place] [address] May, [facility] [place] [facility] [address] [id number] [place] [address] May, [facility] [place] [facility] [address] [facility] [id number] [place] [address] Apr, [facility] [place] [facility] [address] [facility] [id number], [place] [address] Apr, [facility] [address] [id number] [place] [address] Apr, [facility] [place] [facility] [address] [id number] [place] [address] Apr, [facility] [place] [facility] [address] [facility] [id number] [place] [address] Apr, [facility] [place] [facility] [address] [id number] [place] [address] Apr, [facility] [place] [facility] [address] [id number] [place] [address] Apr, [facility] [place] [facility] [address] [id number] [place] [address] Mar, [facility] [address] [facility] [id number] [place] [address] Mar, [facility] [place] [facility] [address] [id number] [place] [address] Mar, [facility] [place] [facility] [address] [id number] [place] [address] Mar, [facility] [place] [facility] [address] [facility] [id number] [place] [address] Mar, [facility] [place] [facility] [address] [id number] [place] [address] 31 Mar, 2014 [facility] [place] [facility] [address] [id number] [place] [address] 30 Mar, 2014 [facility] [place] [facility] [address] [id number] [place] [address] 30 Mar, 2014 [facility] [place] [facility] [address] [facility] [id number] [place] [address] Mar, [facility] [place] [facility] [address] [facility] [id number] [place] [address] Mar, [facility] [place] [facility] [address] [id number] [place] [address] Mar, [facility] [place] [facility] [address] [id number] [place] [address] Mar, [facility] [place] [facility] [address] [id number] [place] [address] Mar, [facility] [place] [facility] [address] [id number] [place] [address] Mar, [facility] [place] [facility] [address] [id number] [place] [address] Mar, [facility] [place] [facility] [address] [id number] [place] [address] Feb, [facility] [place] [facility] [address] [id number] [place] [address] Feb, [facility] [place] [facility] [address] [id number] [place] [address] Feb, [facility] [place] [facility] [address] [id number] [place] [address] Feb, [facility] [place] [facility] [address] [id number] [place] [address] Feb, [facility] [place] [facility] [address] [id number] [place] [address] Feb, [facility] [place] [facility] [address] [id number] [place] [address] Jan, [facility] [place] [facility] [address] [id number] [place] [address] Jan, [facility] [place] [facility] [address] [id number] [place] [address] Jan, [facility] [place] [facility] [address] [id number] [place] [address] Jan, [facility] [place] [facility] [address] [id number] [place] [address] Jan, [facility] [place] [facility] [address] [id number] [place] [address] Jan, [facility] [place] [facility] [address] [id number] [place] [address] Dec, 2013 [facility] [place] [facility] [address] [id number] [place] [address] 29 Dec, 2013 [facility] [place] [facility] [address] [id number] [place] [address] Dec, 2013 [facility] [place] [facility] [address] [id number] [place] [address] Dec, 2013 [facility] [place] [facility] [address] [id number] [place] [address] Dec, 2013 [facility] [place] [facility] [address] [id number] [place] [address] Dec, 2013 [facility] [place] [facility] [address] [id number] [place] [address] 08 Dec, 2013 [facility] [place] [facility] [address] [id number] [place] [address] Dec, 2013 [facility] [place] [facility] [address] [id number] [place] [address] Dec, 2013 [facility] [place] [facility] [address] [id number], [place] [address] Dec, 2013 [facility] [place] [facility] [address] [id number], [place] [address] Dec, 2013 [facility] [place] [facility] [address] [id number] [place] [address] Nov, [facility] [place] [facility] [address] [id number] [place] [address] Nov, [facility] [place] [facility] [address] [id number] [place] [address] Nov, [facility] [place] [facility] [address] [id number] [place] [address] Nov, [facility] [place] [facility] [address] [id number] [place] [address] Nov, [facility] [place] [facility] [address] [id number] [place] [address] Nov, [facility] [place] [facility] [address] [id number] [place] [address] Nov, [facility] [place] [facility] [address] [id number] [place] [address] Nov, [facility] [place] [facility] [address] [id number] [place] [address] Nov, [facility] [place] [facility] [address] [id number] [place] [address] Nov, [facility] [place] [facility] [address] [id number] [place] [address] Oct, [facility] [place] [facility] [address] [id number] [place] [address] Oct, [facility] [place] [facility] [address] [id number] [place] [address] Oct, [facility] [place] [facility] [address] [id number] [place] [address] Oct, [facility] [place] [facility] [address] [id number] [place] [address] Oct, [facility] [place] [facility] [address] [id number] [place] [address] Oct, [facility] [place] [facility] [address] [id number] [place] [address] Oct, [facility] [place] [facility] [address] [id number] [place] [address] Oct, [facility] [place] [facility] [address] [id number] [place] [address] Oct, [facility] [place] [facility] [address] [id number] [place] [address] Oct, [facility] [place] [facility] [address] [id number] [place] [address] Oct, [facility] [place] [facility] [address] [id number] [place] [address] Oct, [facility] [place] [facility] [address] [id number] [place] [address] Oct, [facility] [place] [facility] [address] [id number] [place] [address] Sep, [facility] [place] [facility] [address] [id number] [place] [address] Sep, [facility] [place] [facility] [address] [id number] [place] [address] Sep, [facility] [place] [facility] [address] [id number] [place] [address] Sep, [facility] [place] [facility] [address] [id number] [place] [address] August, [facility] [place] [facility] [address] [id number] [place] [address] August, [facility] [place] [facility] [address] [id number] [place] [address] August, [facility] [place] [facility] [address] [id number] [place] [address] August, [facility] [place] [facility] [address] [id number] [place] [address] August, [facility] [place] [facility] [address] [id number] [place] [address] August, [facility] [place] [facility] [address] [id number] [place] [address] August, [facility] [place] [facility] [address] [id number] [place] [address] August, [facility] [place] [facility] [address] [id number] [place] [address] Jul, [facility] [place] [facility] [address] [id number] [place] [address] Jul, [facility] [place] [facility] [address] [id number] [place] [address] Jun, [facility] [place] [facility] [address] [id number] [place] [address] Jun, [facility] [place] [facility] [address] [id number] [place] [address] Jun, [facility] [place] [facility] [address] [id number] [place] [address] Jun, [facility] [place] [facility] [address] [id number] [place] [address] Jun, [facility] [place] [facility] [address] [id number] [place] [address] Jun, [facility] [place] [facility] [address] [id number] [place] [address] May, [facility] [place] [facility] [address] [id number] [place] [address] May, [facility] [place] [facility] [address] [id number] [place] [address] May, [facility] [place] [facility] [address] [id number] [place] [address] May, [facility] [place] [facility] [address] [id number] [place] [address] May, [facility] [place] [facility] [address] [id number] [place] [address] May, [facility] [place] [facility] [address] [id number] [place] [address] Apr, [facility] [place] [facility] [address] [id number] [place] [address] Apr, [facility] [place] [facility] [address] [id number] [place] [address] 15 Feb, 2013 [facility] [place] [facility] [address] [id number] [place] [address] 15 Feb, 2013 [facility] [place] [facility] [address] [id number] [place] [address] 15 Feb, 2013 [facility] [place] [facility] [address] [id number] [place] [address] 15 Feb, 2013 [facility] [place] [facility] [address] [id number] [place] [address] Feb, [facility] [place] [facility] [address] [id number] [place] [address] Feb, [facility] [place] [facility] [address] [id number] [place] [address] Feb, [facility] [place] [facility] [address] [id number] [place] [address] Feb, [facility] [place] [facility] [address] [id number] [place] [address] Feb, [facility] [facility] [address] [id number] [place] [address] Jan, [facility] [place] [facility] [address] [id number] [place] [address] Jan, [facility] [place] [facility] [address] [id number] [place] [address] Jan, [facility] [place] [facility] [address] [id number] [place] [address] 06 Jan, 2013 [facility] [place] [facility] [address] [id number] [place] [address] 04 Jan, 2013 [facility] [place] [facility] [address] [id number] [place] [address] Jan, [facility] [address] [id number] [place] [address] Dec, [facility] [place] [facility] [address] [id number] [place] [address] Dec, [facility] [place] [facility] [address] [id number] [place] [address] Dec, [facility] [place] [facility] [address] [id number] [place] [address] Dec, [facility] [address] [id number] [place] [address] Oct, [facility] [place] [facility] [address] [id number] [place] [address] Oct, [facility] [address] [id number] [place] [address] Oct, [facility] [place] [facility] [address] [id number] [place] [address] Oct, [facility] [place] [facility] [address] [id number] [place] [address] Oct, [facility] [place] [facility] [address] [id number] [place] [address] Sep, [facility] [place] [facility] [address] [id number] [place] [address] August, [facility] [place] [facility] [address] [id number] [place] [address] August, [facility] [place] [facility] [address] [id number] [place] [address] August, [facility] [place] [facility] [address] [id number] [place] [address] August, [facility] [place] [facility] [address] [id number] [place] [address] August, [facility] [place] [facility] [address] [id number] [place] [address] August, [facility] [address] [id number] [place] [address] August, [facility] [address] [id number] [place] [address] August, [facility] [address] [id number] [place] [address] August, [facility] [address] [id number] [place] [address] August, [facility] [address] [id number] [place] [address] August, [facility] [address] [id number] [place] [address] August, [facility] [address] [id number] [place] [address] Jun, [facility] [address] [id number] [place] [address] Jun, [facility] [address] [id number] [place] [address] Jun, [facility] [address] [id number] [place] [address] May, [facility] [address] [id number] [place] [address] May, [facility] [address] [id number] [place] [address] Mar, [facility] [address] [id number] [place] [address] Mar, [facility] [address] [id number] [place] [address] Feb, [facility] [address] [id number] [place] [address] Feb, [facility] [address] [id number] [place] [address] Feb, [facility] [place] [facility] [address] [id number] [place] [address] Feb, [facility] [place] [facility] [address] [id number] [place] [address] Dec, [facility] [place] [facility] [address] [id number] [place] [address] August, [facility] [place] [facility] [address] [id number] [place] [address] Jul, [facility] [place] [facility] [address] [id number] [place] [address] Jul, [facility] [place] [facility] [address] [id number] [place] [address] Jun, [facility] [facility] [address] [id number] [place] [address] Jun, [facility] [place] [address] [id number] [place] [address] Jun, [facility] [facility] [address] [id number], [place] [address] Jun, [facility] [place] [facility] [address] [id number] [place] [address] Jun, [facility] [place] [facility] [address] [id number], [place] [address] May, [facility] [facility] [address] [id number] [place] [address] May, [facility] [place] [facility] [address] [id number] [place] [address] 14 May, 2011 [facility] [place] [facility] [address] [id number] [place] [address] May, [facility] [place] [facility] [id number] [address] Apr, [facility] [id number] [place] [address] Apr, [facility] [id number] [address] Apr, [facility] [id number] [address] Mar, [facility] [id number] [place] [address] Mar, [facility] [id number] [place] [address] Mar, [facility] [id number] [place] [address] Mar, [facility] [id number] [place] [address] May, [facility] [id number] [place] [address] Feb, [facility] [id number] [place] [address] Feb, [facility] [id number] [place] [address] Jan, [facility] [id number] [place] [address] Jan, IMMUNIZATIONS No Known Immunizations SOCIAL HISTORY Never Assessed REASON FOR VISIT Refill request PLAN OF CARE VITAL SIGNS MEDICATIONS Unknown [...]
--- OUTSIDE RECORDS SUMMARY | 2018-09-19 01:31 | XMS REPORT ---
Author Author SAMMY ARZATE Organization [facility] Address [address] [place] [address] Care Team Providers Care Early Interventionist Name Role Phone SAMMY ARZATE Unavailable PROBLEMS Type Condition ICD9-CM Code KPL31-MC Code Onset Dates Condition Status SNOMED Code Problem 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 Active 068112390 Problem Screening, lipid Z13.220 Active 209392851 Problem Shortness of breath R06.02 Active 727988480 Problem Benign prostatic hyperplasia, unspecified whether lower urinary tract symptoms present N40.0 Active 140157924 Problem Osteoarthritis, unspecified osteoarthritis type, unspecified site M19.90 Active 831496012 Problem 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 Active 008562002 Problem Gastroesophageal reflux disease without esophagitis K21.9 Active 560857943 Problem Other chronic pain G89.29 Active 85725252 ALLERGIES Substance Reaction Event Type Date Status Remeron Unknown Drug Allergy August, Active Bentyl 20 Mg Tablet Unknown Non Drug Allergy August, Active Ranitidine Hcl 150 Mg Tablet Unknown Non Drug Allergy August, Active ENCOUNTERS Encounter Location Date Diagnosis [place] [id number] [place] [address] Nov, Osteoarthritis, unspecified osteoarthritis type, unspecified site M19.90 [facility] [address] [address] Nov, Shortness of breath R06.02 [place] [address] [place] [id number] [place] [address] Nov, [place] [address] [place] [address] Nov, [place] [address] [place] [id number] [place] [address] Oct, Osteoarthritis, unspecified osteoarthritis type, unspecified site M19.90 [place] [address] [place] [id number] [place] [address] Sep, [facility] [address] [place] [id number] [place] [address] Sep, Osteoarthritis, unspecified osteoarthritis type, unspecified site M19.90 [place] [address] [place] [id number] [place] [address] August, Other chronic pain G89.29 and Other specified personal risk factors, not elsewhere classified Z91.89 [place] [address] [place] [id number] [place] [address] August, Osteoarthritis, unspecified osteoarthritis type, unspecified site M19.90 [place] [address] [place] [id number] [place] [address] Jul, Osteoarthritis, unspecified osteoarthritis type, unspecified site M19.90 [place] [address] [place] [id number] [place] [address] Jun, Osteoarthritis, unspecified osteoarthritis type, unspecified site M19.90 [place] [address] [place] [id number] [place] [address] Jun, [place] [address] [place] [id number] [place] [address] Jun, Osteoarthritis, unspecified osteoarthritis type, unspecified site M19.90 [place] [address] [place] [id number] [place] [address] May, [facility] [address] [place] [id number] [place] [address] May, Benign prostatic hyperplasia, unspecified whether lower urinary tract symptoms present N40.0 [facility] [address] [place] [id number] [place] [address] May, Osteoarthritis, unspecified osteoarthritis type, unspecified site M19.90 [place] [address] [address] May, [place] [address] [place] [id number] [place] [address] Apr, Other chronic pain G89.29 ; Family history of diabetes mellitus Z83.3 ; Forgetfulness R68.89 ; History of multiple concussions Z87.820 ; Gastroesophageal reflux disease without esophagitis K21.9 and Screening, lipid Z13.220 [place] [address] [place] [id number] [address] Apr, Other chronic pain G89.29 ; Forgetfulness R68.89 ; History of multiple concussions Z87.820 ; Gastroesophageal reflux disease without esophagitis K21.9 ; Screening, lipid Z13.220 and Family history of diabetes mellitus Z83.3 [place] [address] [place] [id number] [place] [address] Apr, Osteoarthritis, unspecified osteoarthritis type, unspecified site M19.90 [place] [address] [place] [id number] [place] [address] Apr, Osteoarthritis, unspecified osteoarthritis type, unspecified site M19.90 [place] [address] [place] [address] Apr, [place] [address] [place] [address] Mar, Osteoarthritis, unspecified osteoarthritis type, unspecified site M19.90 [place] [address] [place] [address] Feb, Osteoarthritis, unspecified osteoarthritis type, unspecified site M19.90 [place] [address] [place] [id number] [place] [address] Jan, Osteoarthritis, unspecified osteoarthritis type, unspecified site M19.90 [place] [address] [place] [address] Dec, Osteoarthritis, unspecified osteoarthritis type, unspecified site M19.90 [facility] [address] [address] Dec, [facility] [address] [place] [id number] [place] [address] Nov, Encounter for screening for lipid disorder Z13.220 [facility] [address] [place] [id number] [place] [address] Nov, Osteoarthritis, unspecified osteoarthritis type, unspecified site M19.90 ; Encounter for screening for lipid disorder Z13.220 and Other chronic pain G89.29 [facility] [address] [place] [id number] [place] [address] Nov, Osteoarthritis, unspecified osteoarthritis type, unspecified site M19.90 [facility] [address] [place] [id number] [place] [address] Nov, [facility] [address] [place] [id number] [place] [address] Nov, [facility] [address] [place] [id number] [place] [address] Oct, Osteoarthritis, unspecified osteoarthritis type, unspecified site M19.90 [facility] [address] [place] [address] Oct, Gastroesophageal reflux disease without esophagitis K21.9 [facility] [address] [place] [id number] [place] [address] Sep, Osteoarthritis, unspecified osteoarthritis type, unspecified site M19.90 [facility] [address] [place] [id number] [place] [address] August, Osteoarthritis, unspecified osteoarthritis type, unspecified site M19.90 [facility] [address] [address] August, Osteoarthritis, unspecified osteoarthritis type, unspecified site M19.90 [facility] [address] [place] [id number] [address] Jul, Osteoarthritis, unspecified osteoarthritis type, unspecified site M19.90 and Gastroesophageal reflux disease without esophagitis K21.9 [facility] [address] [place] [id number] [place] [address] Jul, Osteoarthritis, unspecified osteoarthritis type, unspecified site M19.90 [facility] [address] [place] [id number] [place] [address] Jun, Ventral hernia without obstruction or gangrene K43.9 [place] [address] [place] [id number] [place] [address] Jun, Osteoarthritis, unspecified osteoarthritis type, unspecified site M19.90 [place] [address] [place] [id number] [place] [address] May, [place] [address] [place] [id number] [place] [address] May, Osteoarthritis, unspecified osteoarthritis type, unspecified site M19.90 [place] [address] [place] [id number] [place] [address] Apr, Osteoarthritis, unspecified osteoarthritis type, unspecified site M19.90 [place] [address] [place] [id number] [place] [address] Mar, [place] [address] [place] [id number] [place] [address] Mar, Osteoarthritis, unspecified osteoarthritis type, unspecified site M19.90 and Lumbago with sciatica, left side M54.42 [place] [address] [place] [id number] [place] [address] Feb, [facility] [address] [place] [id number] [place] [address] Feb, [facility] [address] [place] [address] Feb, Osteoarthritis, unspecified osteoarthritis type, unspecified site M19.90 [facility] [address] [address] Feb, [place] [address] [place] [id number] [place] [address] Feb, Low back pain M54.5 and Other chronic pain G89.29 [place] [address] [place] [id number] [place] [address] Feb, [facility] [address] [place] [id number] [place] [address] Jan, [place] [address] [place] [id number] [place] [address] 05 Jan, 2016 [facility] [place] [address] [place] [id number] [place] [address] 24 Dec, 2015 Lumbago with sciatica, left side M54.42 [place] [address] [place] [address] 15 Dec, 2015 Irritable bowel syndrome with both constipation and diarrhea K58.0 ; Screening, lipid Z13.220 ; Nocturia R35.1 ; Family history of diabetes mellitus Z83.3 and Dysuria R30.0 [place] [address] [place] [address] 14 Dec, 2015 Irritable bowel syndrome with both constipation and diarrhea K58.0 ; Nocturia R35.1 ; Family history of diabetes mellitus Z83.3 ; Dysuria R30.0 and Screening, lipid Z13.220 [place] [address] [address] 12 Dec, 2015 [place] [address] [place] [id number] [place] [address] 07 Dec, 2015 [facility] [address] [place] [address] 2015 Pain with swallowing R13.10 [place] [address] [place] [id number] [address] Nov, [facility] [address] [address] Nov, [facility] [address] [address] Oct, [facility] [address] [place] [id number] [place] [address] Sep, [facility] [address] [place] [id number] [place] [address] 07 Sep, 2015 Osteoarthritis, unspecified osteoarthritis type, unspecified site M19.90 [facility] [address] [place] [id number] [place] [address] 07 Sep, 2015 Back pain M54.9 [facility] [address] [place] [id number] [place] [address] Sep, Lumbago with sciatica, right side M54.41 and Bilateral impacted cerumen H61.23 [facility] [address] [address] Sep, [facility] [address] [address] August, Bronchitis J40 [facility] [address] [address] August, [facility] [address] [address] August, [facility] [address] [address] August, [facility] [address] [place] [id number] [address] Jul, [facility] [address] [address] Jul, Back pain M54.9 [facility] [address] [place] [address] Jun, Degenerative disc disease at L5-S1 level M51.36 and Bronchitis J40 [facility] [address] [place] [id number] [place] [address] Jun, [facility] [address] [place] [id number] [place] [address] May, [facility] [address] [place] [id number] [place] [address] Apr, [facility] [address] [place] [id number] [place] [address] Mar, [facility] [address] [place] [id number] [place] [address] Mar, [facility] [address] [place] [id number] [place] [address] Feb, [facility] [address] [place] [id number] [place] [address] Jan, [facility] [address] [place] [id number] [place] [address] Dec, [facility] [address] [place] [id number] [place] [address] Nov, [facility] [address] [place] [id number] [place] [address] Oct, [facility] [address] [place] [id number] [place] [address] Oct, Right shoulder pain 719.41 [facility] [address] [place] [id number] [place] [address] Sep, [facility] [address] [address] Sep, Vertigo 780.4 and Elbow fracture, right 812.40 [facility] [address] [address] Sep, [facility] [place] [facility] [address] [id number] [place] [address] August, [facility] [place] [facility] [address] [id number] [place] [address] Jul, [facility] [place] [facility] [address] [facility] [id number] [place] [address] Jul, [facility] [place] [facility] [address] [id number] [address] Jun, [facility] [place] [facility] [address] [id number] [place] [address] Jun, [facility] [place] [facility] [address] [facility] [id number] [place] [address] Jun, [facility] [place] [facility] [address] [facility] [id number] [place] [address] Jun, [facility] [place] [facility] [address] [id number] [address] Jun, [facility] [place] [facility] [address] [facility] [id number] [place] [address] Jun, [facility] [place] [facility] [address] [facility] [id number] [place] [address] May, [facility] [place] [facility] [address] [id number] [address] May, [facility] [place] [facility] [address] [facility] [id number] [address] May, [facility] [place] [facility] [address] [id number] [place] [address] May, [facility] [place] [facility] [address] [facility] [id number] [address] May, [facility] [place] [facility] [address] [facility] [id number] [address] May, [facility] [place] [facility] [address] [id number] [place] [address] Apr, [facility] [place] [facility] [address] [id number] [place] [address] Apr, [facility] [place] [facility] [address] [id number] [place] [address] Apr, [facility] [place] [facility] [address] [id number] [place] [address] Apr, [facility] [place] [facility] [address] [id number] [place] [address] Apr, [facility] [place] [facility] [address] [id number] [place] [address] Apr, [facility] [place] [facility] [address] [id number] [place] [address] Apr, [facility] [place] [facility] [address] [id number] [place] [address] Mar, [facility] [place] [facility] [address] [id number] [place] [address] Mar, [facility] [place] [facility] [address] [id number] [place] [address] Mar, [facility] [place] [facility] [address] [id number] [place] [address] 31 Mar, 2014 [facility] [place] [facility] [address] [id number] [place] [address] 31 Mar, 2014 [facility] [place] [facility] [address] [id number] [place] [address] 31 Mar, 2014 [facility] [place] [facility] [address] [id number] [place] [address] 30 Mar, 2014 [facility] [place] [facility] [address] [id number] [place] [address] 30 Mar, 2014 [facility] [place] [facility] [address] [id number] [place] [address] Mar, [facility] [place] [facility] [address] [id number] [place] [address] Mar, [facility] [place] [facility] [address] [id number] [place] [address] Mar, [facility] [place] [facility] [address] [facility] [id number] [place] [address] Mar, [facility] [place] [facility] [address] [id number] [place] [address] Mar, [facility] [place] [facility] [address] [id number] [place] [address] Mar, [facility] [place] [facility] [address] [id number] [place] [address] Mar, [facility] [place] [facility] [address] [id number] [place] [address] Feb, [facility] [place] [facility] [address] [id number] [place] [address] Feb, [facility] [place] [facility] [address] [id number] [place] [address] Feb, [facility] [place] [facility] [address] [id number] [place] [address] Feb, [facility] [place] [facility] [address] [id number] [address] Feb, [facility] [place] [facility] [address] [id number] [place] [address] Feb, [facility] [place] [facility] [address] [id number] [place] [address] Jan, [facility] [place] [facility] [address] [id number] [place] [address] Jan, [facility] [place] [facility] [address] [id number] [place] [address] Jan, [facility] [place] [facility] [address] [id number] [place] [address] 08 Jan, 2013 [facility] [place] [facility] [address] [id number] [place] [address] 06 Jan, 2013 [facility] [place] [facility] [address] [id number] [place] [address] Jan, [facility] [place] [facility] [address] [id number] [place] [address] 29 Dec, 2013 [facility] [place] [facility] [address] [id number] [place] [address] 29 Dec, 2013 [facility] [place] [facility] [address] [id number] [place] [address] 26 Dec, 2013 [facility] [place] [facility] [address] [id number] [place] [address] Dec, 2013 [facility] [place] [facility] [address] [id number] [place] [address] Dec, 2013 [facility] [place] [facility] [address] [id number] [place] [address] 08 Dec, 2013 [facility] [place] [facility] [address] [id number] [place] [address] 08 Dec, 2013 [facility] [place] [facility] [address] [id number] [place] [address] 08 Dec, 2013 [facility] [place] [facility] [address] [id number] [place] [address] 08 Dec, 2013 [facility] [place] [facility] [address] [id number] [place] [address] Dec, 2013 [facility] [place] [facility] [address] [id number] [place] [address] Dec, 2013 [facility] [place] [facility] [address] [id number] [place] [address] Nov, [facility] [place] [facility] [address] [id number] [place] [address] Nov, [facility] [place] [facility] [address] [id number] [place] [address] Nov, [facility] [place] [facility] [address] [id number] [place] [address] Nov, [facility] [place] [facility] [address] [id number] [place] [address] Nov, [facility] [place] [facility] [address] [id number] [place] [address] Nov, [facility] [place] [facility] [address] [id number] [place] [address] Nov, [facility] [place] [facility] [address] [id number] [place] [address] Nov, [facility] [place] [facility] [address] [id number] [place] [address] Nov, [facility] [place] [facility] [address] [id number] [place] [address] Nov, [facility] [place] [facility] [address] [id number] [place] [address] Oct, [facility] [place] [facility] [address] [id number] [place] [address] Oct, [facility] [place] [facility] [address] [id number] [place] [address] Oct, [facility] [place] [facility] [address] [id number] [place] [address] Oct, [facility] [place] [facility] [address] [id number] [place] [address] Oct, [facility] [place] [facility] [address] [id number] [place] [address] Oct, [facility] [place] [facility] [address] [id number] [place] [address] Oct, [facility] [place] [facility] [address] [id number] [place] [address] Oct, [facility] [place] [facility] [address] [id number] [place] [address] Oct, [facility] [place] [facility] [address] [id number] [place] [address] Oct, [facility] [place] [facility] [address] [id number] [place] [address] Oct, [facility] [place] [facility] [address] [id number] [place] [address] Oct, [facility] [place] [facility] [address] [id number] [place] [address] Oct, [facility] [place] [facility] [address] [id number] [place] [address] Sep, [facility] [place] [facility] [address] [id number] [place] [address] Sep, [facility] [place] [facility] [address] [id number] [place] [address] Sep, [facility] [place] [facility] [address] [id number] [place] [address] Sep, [facility] [place] [facility] [address] [id number] [place] [address] August, [facility] [place] [facility] [address] [id number] [place] [address] August, [facility] [place] [facility] [address] [id number] [place] [address] August, [facility] [place] [facility] [address] [id number] [place] [address] August, [facility] [place] [facility] [address] [id number] [place] [address] August, [facility] [place] [facility] [address] [id number] [place] [address] August, [facility] [place] [facility] [address] [id number] [place] [address] August, [facility] [address] [id number] [place] [address] August, [facility] [place] [facility] [address] [id number] [place] [address] Jul, [facility] [place] [facility] [address] [id number] [place] [address] Jul, [facility] [place] [facility] [address] [id number] [place] [address] Jun, [facility] [place] [facility] [address] [id number] [place] [address] Jun, [facility] [place] [facility] [address] [id number] [place] [address] Jun, [facility] [place] [facility] [address] [id number] [place] [address] Jun, [facility] [place] [facility] [address] [id number] [place] [address] Jun, [facility] [place] [facility] [address] [id number] [place] [address] Jun, [facility] [place] [facility] [address] [id number] [place] [address] May, [facility] [place] [facility] [address] [id number] [place] [address] May, [facility] [place] [facility] [address] [id number] [place] [address] May, [facility] [place] [facility] [address] [id number] [place] [address] May, [facility] [place] [facility] [address] [id number] [place] [address] May, [facility] [facility] [address] [id number] [place] [address] May, [facility] [place] [facility] [address] [id number] [place] [address] Apr, [facility] [place] [facility] [address] [id number] [place] [address] Apr, [facility] [place] [facility] [address] [id number] [address] 15 Feb, 2013 [facility] [place] [facility] [address] [id number] [place] [address] 15 Feb, 2013 [facility] [place] [facility] [address] [id number] [place] [address] 15 Feb, 2013 [facility] [place] [facility] [address] [id number] [place] [address] 15 Feb, 2013 [facility] [address] [id number] [place] [address] Feb, [facility] [address] [id number] [place] [address] Feb, [facility] [facility] [address] [id number] [place] [address] Feb, [facility] [address] [id number] [place] [address] Feb, [facility] [address] [id number] [place] [address] 08 Feb, 2013 [facility] [facility] [address] [id number] [place] [address] Jan, [facility] [facility] [address] [id number] [place] [address] Jan, [facility] [address] [id number] [place] [address] Jan, [facility] [facility] [address] [id number] [place] [address] 06 Jan, 2013 [facility] [place] [facility] [address] [id number] [place] [address] Jan, [facility] [address] [id number] [place] [address] Jan, [facility] [address] [id number] [place] [address] Dec, [facility] [address] [id number] [place] [address] Dec, [facility] [address] [id number] [place] [address] Dec, [facility] [address] [id number] [place] [address] Dec, [facility] [address] [id number] [place] [address] Oct, [facility] [address] [id number] [place] [address] Oct, [facility] [address] [id number] [place] [address] Oct, [facility] [address] [id number] [place] [address] Oct, [facility] [address] [id number] [place] [address] Oct, [facility] [address] [id number] [place] [address] Sep, [facility] [address] [id number] [place] [address] August, [facility] [address] [id number] [place] [address] August, [facility] [address] [id number] [place] [address] August, [facility] [address] [id number] [place] [address] August, [facility] [address] [id number] [place] [address] August, [facility] [address] [id number] [place] [address] August, [facility] [address] [id number] [place] [address] August, [facility] [address] [id number] [place] [address] August, [facility] [address] [id number] [place] [address] August, [facility] [address] [id number] [place] [address] August, [facility] [address] [id number] [place] [address] August, [facility] [address] [id number] [place] [address] August, [facility] [address] [id number] [place] [address] Jun, [facility] [address] [id number] [place] [address] Jun, [facility] [address] [id number] [place] [address] Jun, [facility] [address] [id number] [place] [address] May, [facility] [address] [id number] [place] [address] May, [facility] [address] [id number] [place] [address] Mar, [facility] [address] [id number] [place] [address] Mar, [facility] [address] [id number] [place] [address] Feb, [facility] [address] [id number] [place] [address] Feb, [facility] [address] [id number] [place] [address] Feb, [facility] [address] [id number] [place] [address] Feb, [facility] [address] [id number] [place] [address] 25 Dec, 2011 [facility] [address] [id number] [place] [address] August, [facility] [address] [id number] [place] [address] Jul, [facility] [address] [id number] [place] [address] 05 Jul, 2011 [facility] [address] [id number] [place] [address] Jun, [facility] [address] [id number] [place] [address] Jun, [facility] [address] [facility] [id number] [place] [address] Jun, [facility] [address] [id number] [place] [address] Jun, [facility] [address] [id number] [place] [address] Jun, [facility] [address] [id number] [place] [address] May, [facility] [address] [id number] [place] [address] May, [facility] [address] [id number] [place] [address] 14 May, 2011 [facility] [id number] [address] May, [facility] [id number] [address] Apr, [facility] [id number] [address] Apr, [facility] [id number] [address] Apr, [facility] [id number] [address] Mar, [facility] [id number] [address] Mar, [facility] [id number] [address] Mar, [facility] [id number] [address] Mar, [facility] [id number] [address] May, [facility] [id number] [address] Feb, [facility] [id number] [address] Feb, [facility] [id number] [address] Jan, [facility] [address] [id number] [address] Jan, IMMUNIZATIONS No Known Immunizations SOCIAL HISTORY Never Assessed REASON FOR VISIT Pain management (chronic) -ND PLAN OF CARE Activity Details Follow Up 3 Months Reason:chronic pain VITAL SIGNS Height 73 in 2017-09-24 Weight 221.9 lbs 2017-09-24 Temperature 98.6 degrees Fahrenheit 2017-09-24 Heart Rate 62 bpm 2017-09-24 Respiratory Rate 18 2017-09-24 BMI 29.27 kg/m2 2017-09-24 Blood pressure systolic 118 mmHg 2017-09-24 Blood pressure diastolic 72 mmHg 2017-09-24 MEDICATIONS Medication Instructions Dosage Frequency Start Date End Date Duration Status Pennsaid 2 % Transdermal twice a day 2 applications to affected area 12h 10 Sep, 2015 Active Cyclobenzaprine HCl 10 MG Orally Three times a day 1 tablet as needed 8h Active Test strips Test Strips Glucocard Expression 2 times a day test blood sugar 12h 12 Dec, 2015 Active Rapaflo 8 MG Orally Once a day 1 capsule with a meal 24h 30 Active Esomeprazole Magnesium 40 mg Orally Once a day 1 capsule 24h 08 May, 2017 30 day(s) Active Oxycodone HCl 10 MG Orally Once a day 1 tablet 24h 27 Aug, 2017 28 days Active Xanax 1 MG Orally Twice a day 1 tablet 12h 25 Jun, 2014 28 days Active RESULTS Name Result Date Reference Range HEPATITIS PROFILE 2017-09-24 HEPATITIS A IGM NON-REACTIVE NON-REACTIVE HEPATITIS B SURFACE ANTIGEN NON-REACTIVE NON-REACTIVE HEPATITIS B CORE ANTIBODY (IGM) NON-REACTIVE NON-REACTIVE HEPATITIS C ANTIBODY NON-REACTIVE NON-REACTIVE SIGNAL TO CUT-OFF 0.01 <1.00 PROCEDURES Procedure Date Ordered Result Body Site LAB [facility] September 24, 2017 [facility] VISIT ESTABLISHED PATIENT September 24, 2017 RL, ROUTINE* September 24, 2017 INSTRUCTIONS MEDICATIONS ADMINISTERED No Known Medications MEDICAL [...]
--- OUTSIDE RECORDS SUMMARY | 2018-09-19 01:32 | XMS REPORT ---
Author Author SAMMY ARZATE Organization [facility] Address [address] [place] [address] Care Team Providers Care Flagsetter Name Role Phone SAMMY ARZATE Unavailable PROBLEMS Type Condition ICD9-CM Code [id number] Code Onset Dates Condition Status SNOMED Code Problem 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 Active 213971389 Problem Screening, lipid Z13.220 Active 951280124 Problem Shortness of breath R06.02 Active 640287958 Problem Benign prostatic hyperplasia, unspecified whether lower urinary tract symptoms present N40.0 Active 062845040 Problem Osteoarthritis, unspecified osteoarthritis type, unspecified site M19.90 Active 574612050 Problem 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 Active 968491999 Problem Gastroesophageal reflux disease without esophagitis K21.9 Active 523806653 Problem Other chronic pain G89.29 Active 62462706 ALLERGIES No Information ENCOUNTERS Encounter Location Date Diagnosis [place] [id number] [place] [address] Nov, Shortness of breath R06.02 [facility] [id number] [place] [address] Nov, [facility] [address] [place] [id number] [place] [address] Nov, [facility] [address] [place] [id number] [place] [address] Oct, Osteoarthritis, unspecified osteoarthritis type, unspecified site M19.90 [facility] [address] [place] [id number] [place] [address] Sep, [facility] [address] [place] [id number] [place] [address] Sep, Osteoarthritis, unspecified osteoarthritis type, unspecified site M19.90 [place] [address] [place] [id number] [place] [address] August, Other chronic pain G89.29 and Other specified personal risk factors, not elsewhere classified Z91.89 [place] [address] [place] [id number] [place] [address] August, Osteoarthritis, unspecified osteoarthritis type, unspecified site M19.90 [place] [address] [place] [id number] [place] [address] Jul, Osteoarthritis, unspecified osteoarthritis type, unspecified site M19.90 [place] [address] [place] [id number] [place] [address] Jun, Osteoarthritis, unspecified osteoarthritis type, unspecified site M19.90 [place] [address] [place] [id number] [place] [address] Jun, [place] [address] [place] [id number] [place] [address] Jun, Osteoarthritis, unspecified osteoarthritis type, unspecified site M19.90 [place] [address] [place] [id number] [place] [address] May, [place] [address] [place] [id number] [place] [address] May, Benign prostatic hyperplasia, unspecified whether lower urinary tract symptoms present N40.0 [place] [address] [place] [id number] [place] [address] May, Osteoarthritis, unspecified osteoarthritis type, unspecified site M19.90 [place] [address] [place] [id number] [place] [address] May, [place] [address] [place] [id number] [place] [address] Apr, Other chronic pain G89.29 ; Family history of diabetes mellitus Z83.3 ; Forgetfulness R68.89 ; History of multiple concussions Z87.820 ; Gastroesophageal reflux disease without esophagitis K21.9 and Screening, lipid Z13.220 [place] [address] [place] [id number] [place] [address] Apr, Other chronic pain G89.29 ; Forgetfulness R68.89 ; History of multiple concussions Z87.820 ; Gastroesophageal reflux disease without esophagitis K21.9 ; Screening, lipid Z13.220 and Family history of diabetes mellitus Z83.3 [place] [address] [place] [id number] [place] [address] Apr, Osteoarthritis, unspecified osteoarthritis type, unspecified site M19.90 [place] [address] [place] [id number] [place] [address] Apr, Osteoarthritis, unspecified osteoarthritis type, unspecified site M19.90 [place] [address] [place] [id number] [place] [address] Apr, [place] [address] [place] [id number] [place] [address] Mar, Osteoarthritis, unspecified osteoarthritis type, unspecified site M19.90 [place] [address] [place] [id number] [place] [address] Feb, Osteoarthritis, unspecified osteoarthritis type, unspecified site M19.90 [place] [address] [place] [id number] [place] [address] Jan, Osteoarthritis, unspecified osteoarthritis type, unspecified site M19.90 [place] [address] [place] [id number] [place] [address] Dec, Osteoarthritis, unspecified osteoarthritis type, unspecified site M19.90 [place] [address] [place] [id number] [place] [address] Dec, [place] [address] [place] [id number] [place] [address] Nov, Encounter for screening for lipid disorder Z13.220 [place] [address] [place] [id number] [place] [address] Nov, Osteoarthritis, unspecified osteoarthritis type, unspecified site M19.90 ; Encounter for screening for lipid disorder Z13.220 and Other chronic pain G89.29 [place] [address] [place] [id number] [place] [address] Nov, Osteoarthritis, unspecified osteoarthritis type, unspecified site M19.90 [place] [address] [place] [id number] [place] [address] Nov, [place] [address] [place] [id number] [place] [address] Nov, [place] [address] [place] [id number] [place] [address] Oct, Osteoarthritis, unspecified osteoarthritis type, unspecified site M19.90 [place] [address] [place] [id number] [place] [address] Oct, Gastroesophageal reflux disease without esophagitis K21.9 [place] [address] [place] [id number] [place] [address] Sep, Osteoarthritis, unspecified osteoarthritis type, unspecified site M19.90 [place] [address] [place] [id number] [place] [address] August, Osteoarthritis, unspecified osteoarthritis type, unspecified site M19.90 [place] [address] [place] [id number] [place] [address] August, Osteoarthritis, unspecified osteoarthritis type, unspecified site M19.90 [place] [address] [place] [id number] [place] [address] Jul, Osteoarthritis, unspecified osteoarthritis type, unspecified site M19.90 and Gastroesophageal reflux disease without esophagitis K21.9 [facility] [address] [place] [id number] [place] [address] Jul, Osteoarthritis, unspecified osteoarthritis type, unspecified site M19.90 [facility] [address] [place] [address] Jun, Ventral hernia without obstruction or gangrene K43.9 [facility] [address] [place] [address] Jun, Osteoarthritis, unspecified osteoarthritis type, unspecified site M19.90 [facility] [id number] [place] [address] May, [facility] [address] [place] [address] May, Osteoarthritis, unspecified osteoarthritis type, unspecified site M19.90 [facility] [address] [place] [address] Apr, Osteoarthritis, unspecified osteoarthritis type, unspecified site M19.90 [facility] [address] [place] [id number] [place] [address] Mar, [facility] [address] [place] [id number] [place] [address] Mar, Osteoarthritis, unspecified osteoarthritis type, unspecified site M19.90 and Lumbago with sciatica, left side M54.42 [facility] [address] [address] Feb, [facility] [address] [place] [address] Feb, [facility] [address] [place] [address] Feb, Osteoarthritis, unspecified osteoarthritis type, unspecified site M19.90 [facility] [address] [place] [address] Feb, [facility] [address] [place] [address] Feb, Low back pain M54.5 and Other chronic pain G89.29 [facility] [address] [place] [id number] [place] [address] Feb, [facility] [address] [address] Jan, [facility] [address] [place] [id number] [place] [address] Jan, [facility] [address] [address] 24 Dec, 2015 Lumbago with sciatica, left side M54.42 [place] [address] [place] [id number] [place] [address] 15 Dec, 2015 Irritable bowel syndrome with both constipation and diarrhea K58.0 ; Screening, lipid Z13.220 ; Nocturia R35.1 ; Family history of diabetes mellitus Z83.3 and Dysuria R30.0 [place] [address] [place] [id number] [place] [address] 14 Dec, 2015 Irritable bowel syndrome with both constipation and diarrhea K58.0 ; Nocturia R35.1 ; Family history of diabetes mellitus Z83.3 ; Dysuria R30.0 and Screening, lipid Z13.220 [facility] [address] [place] [id number] [place] [address] 12 Dec, 2015 [place] [address] [place] [id number] [place] [address] Dec, [facility] [address] [place] [id number] [place] [address] Dec, Pain with swallowing R13.10 [facility] [address] [place] [id number] [place] [address] Nov, [facility] [address] [place] [id number] [place] [address] Nov, [facility] [address] [place] [id number] [place] [address] Oct, [place] [address] [place] [id number] [place] [address] Sep, [facility] [address] [place] [id number] [place] [address] Sep, Osteoarthritis, unspecified osteoarthritis type, unspecified site M19.90 [facility] [address] [place] [id number] [place] [address] Sep, Back pain M54.9 [facility] [address] [place] [id number] [place] [address] Sep, Lumbago with sciatica, right side M54.41 and Bilateral impacted cerumen H61.23 [facility] [address] [place] [id number] [place] [address] Sep, [facility] [address] [place] [id number] [place] [address] August, Bronchitis J40 [facility] [address] [place] [id number] [place] [address] August, [facility] [address] [place] [id number] [place] [address] August, [facility] [address] [place] [id number] [place] [address] August, [facility] [address] [place] [id number] [place] [address] Jul, [facility] [address] [place] [id number] [place] [address] Jul, Back pain M54.9 [facility] [address] [place] [id number] [place] [address] Jun, Degenerative disc disease at L5-S1 level M51.36 and Bronchitis J40 [facility] [address] [place] [id number] [place] [address] Jun, [facility] [address] [place] [id number] [place] [address] May, [facility] [address], [place] [address] Apr, [facility] [address] [place] [address] Mar, [facility] [address] [place] [id number] [place] [address] Mar, [facility] [address] [place] [id number] [place] [address] Feb, [facility] [address] [place] [id number] [place] [address] Jan, [facility] [address] [place] [id number] [place] [address] Dec, [facility] [address] [place] [id number] [place] [address] Nov, [facility] [address] [place] [id number] [place] [address] Oct, [facility] [address] [place] [id number] [place] [address] Oct, Right shoulder pain 719.41 [facility] [address] [place] [id number] [place] [address] Sep, [facility] [address] [place] [id number] [place] [address] Sep, Vertigo 780.4 and Elbow fracture, right 812.40 [facility] [id number] [place] [address] Sep, [facility] [address] [place] [id number] [place] [address] August, [facility] [address] [place] [address] Jul, [facility] [address] [place] [id number] [place] [address] 13 Jul, 2014 [facility] [place] [facility] [address] [id number] [place] [address] Jun, [facility] [place] [facility] [address] [facility] [id number] [place] [address] Jun, [facility] [place] [facility] [address] [facility] [id number] [place] [address] Jun, [facility] [place] [facility] [address] [facility] [id number] [place] [address] Jun, [facility] [place] [facility] [address] [facility] [id number] [place] [address] Jun, [facility] [place] [facility] [address] [facility] [id number] [place] [address] Jun, [facility] [place] [facility] [address] [address] May, [facility] [place] [facility] [address] [facility] [id number] [place] [address] May, [facility] [place] [facility] [address] [address] May, [facility] [place] [facility] [address] [place] [id number] [address] May, [facility] [place] [facility] [address] [address] May, [facility] [place] [facility] [address] [facility] [id number] [address] May, [facility] [place] [facility] [address] [facility] [id number] [place] [address] Apr, [facility] [place] [facility] [address] [facility] [id number] [place] [address] Apr, [facility] [place] [facility] [address] [facility] [id number] [place] [address] Apr, [facility] [place] [facility] [address] [id number] [place] [address] Apr, [facility] [place] [facility] [address] [id number] [place] [address] Apr, [facility] [place] [facility] [address] [id number] [place] [address] Apr, [facility] [place] [facility] [address] [id number] [place] [address] Apr, [facility] [place] [facility] [address] [id number] [place] [address] Mar, [facility] [place] [facility] [address] [id number] [place] [address] Mar, [facility] [place] [facility] [address] [id number] [place] [address] Mar, [facility] [place] [facility] [address] [id number] [place] [address] Mar, [facility] [place] [facility] [address] [id number] [place] [address] Mar, [facility] [place] [facility] [address] [id number] [place] [address] Mar, [facility] [place] [facility] [address] [id number] [place] [address] Mar, [facility] [place] [facility] [address] [id number] [place] [address] Mar, [facility] [place] [facility] [address] [id number] [place] [address] Mar, [facility] [place] [facility] [address] [id number] [place] [address] Mar, [facility] [place] [facility] [address] [id number] [place] [address] Mar, [facility] [place] [facility] [address] [id number], [place] [address] Mar, [facility] [place] [facility] [address] [id number] [place] [address] Mar, [facility] [place] [facility] [address] [id number] [place] [address] Mar, [facility] [place] [facility] [address] [id number] [place] [address] Mar, [facility] [place] [facility] [address] [id number] [place] [address] Feb, [facility] [place] [facility] [address] [id number] [place] [address] Feb, [facility] [place] [facility] [address] [id number] [place] [address] Feb, [facility] [place] [facility] [address] [id number] [place] [address] Feb, [facility] [place] [facility] [address] [id number] [place] [address] Feb, [facility] [place] [facility] [address] [id number] [place] [address] Feb, [facility] [place] [facility] [address] [id number] [place] [address] Jan, [facility] [place] [facility] [address] [id number], [place] [address] Jan, [facility] [place] [facility] [address] [id number], [place] [address] Jan, [facility] [place] [facility] [address] [id number], [place] [address] Jan, [facility] [place] [facility] [address] [id number], [place] [address] Jan, [facility] [place] [facility] [address] [id number] [place] [address] Jan, [facility] [place] [facility] [address] [id number] [place] [address] 29 Dec, 2013 [facility] [place] [facility] [address] [id number] [place] [address] 29 Dec, 2013 [facility] [place] [facility] [address] [id number] [place] [address] 26 Dec, 2013 [facility] [place] [facility] [address] [id number] [place] [address] 11 Dec, 2013 [facility] [place] [facility] [address] [id number] [place] [address] 11 Dec, 2013 [facility] [place] [facility] [address] [id number] [place] [address] 08 Dec, 2013 [facility] [place] [facility] [address] [id number] [place] [address] 08 Dec, 2013 [facility] [place] [facility] [address] [id number] [place] [address] 08 Dec, 2013 [facility] [place] [facility] [address] [id number] [place] [address] 08 Dec, 2013 [facility] [place] [facility] [address] [id number] [place] [address] 04 Dec, 2013 [facility] [place] [facility] [address] [id number] [place] [address] Dec, 2013 [facility] [place] [facility] [address] [id number] [place] [address] Nov, [facility] [place] [facility] [address] [id number] [place] [address] Nov, [facility] [place] [facility] [address] [id number] [place] [address] Nov, [facility] [place] [facility] [address] [id number] [place] [address] Nov, [facility] [place] [facility] [address] [id number] [place] [address] Nov, [facility] [place] [facility] [address] [id number] [place] [address] Nov, [facility] [place] [facility] [address] [id number] [place] [address] Nov, [facility] [place] [facility] [address] [id number] [place] [address] Nov, [facility] [place] [facility] [address] [id number] [place] [address] Nov, [facility] [place] [facility] [address] [id number] [place] [address] Nov, [facility] [place] [facility] [address] [id number] [place] [address] Oct, [facility] [place] [facility] [address] [id number] [place] [address] Oct, [facility] [place] [facility] [address] [id number] [place] [address] Oct, [facility] [place] [facility] [address] [id number] [place] [address] Oct, [facility] [place] [facility] [address] [id number] [place] [address] Oct, [facility] [place] [facility] [address] [id number] [place] [address] Oct, [facility] [place] [facility] [address] [id number] [place] [address] Oct, [facility] [place] [facility] [address] [id number] [place] [address] Oct, [facility] [place] [facility] [address] [id number] [place] [address] Oct, [facility] [place] [facility] [address] [id number] [place] [address] Oct, [facility] [place] [facility] [address] [id number] [place] [address] Oct, [facility] [place] [facility] [address] [id number] [place] [address] Oct, [facility] [place] [facility] [address] [id number] [place] [address] Oct, [facility] [place] [facility] [address] [id number] [place] [address] Sep, [facility] [place] [facility] [address] [id number] [place] [address] Sep, [facility] [place] [facility] [address] [id number] [place] [address] Sep, [facility] [place] [facility] [address] [id number] [place] [address] Sep, [facility] [place] [facility] [address] [id number] [place] [address] August, [facility] [place] [facility] [address] [id number] [place] [address] August, [facility] [place] [facility] [address] [id number] [place] [address] August, [facility] [place] [facility] [address] [id number] [place] [address] August, [facility] [place] [facility] [address] [id number] [place] [address] August, [facility] [place] [facility] [address] [id number] [place] [address] August, [facility] [place] [facility] [address] [id number] [place] [address] August, [facility] [place] [facility] [address] [id number] [place] [address] August, [facility] [place] [facility] [address] [id number] [place] [address] Jul, [facility] [place] [facility] [address] [id number] [place] [address] Jul, [facility] [place] [facility] [address] [id number] [place] [address] Jun, [facility] [place] [facility] [address] [id number] [place] [address] Jun, [facility] [place] [facility] [address] [id number] [place] [address] Jun, [facility] [place] [facility] [address] [id number] [place] [address] Jun, [facility] [place] [facility] [address] [id number] [place] [address] Jun, [facility] [place] [facility] [address] [facility] [id number] [place] [address] Jun, [facility] [place] [facility] [address] [id number] [place] [address] May, [facility] [place] [facility] [address] [id number] [place] [address] May, [facility] [place] [facility] [address] [id number] [place] [address] May, [facility] [place] [facility] [address] [facility] [id number] [place] [address] May, [facility] [place] [facility] [address] [id number] [address] May, [facility] [place] [facility] [address] [id number] [place] [address] May, [facility] [place] [facility] [address] [id number] [place] [address] Apr, [facility] [place] [facility] [address] [id number] [place] [address] Apr, [facility] [place] [facility] [address] [id number], [place] [address] 15 Feb, 2013 [facility] [place] [facility] [address] [id number] [place] [address] 15 Feb, 2013 [facility] [place] [facility] [address] [id number], [place] [address] 15 Feb, 2013 [facility] [place] [facility] [address] [facility] [id number], [place] [address] 15 Feb, 2013 [facility] [place] [facility] [address] [id number], [place] [address] 13 Feb, 2013 [facility] [place] [facility] [address] [id number] [place] [address], [place] [address] 13 Feb, 2013 [facility] [place] [facility] [address] [id number], [place] [address] Feb, [facility] [place] [facility] [address] [facility] [id number], [place] [address] Feb, [facility] [place] [facility] [address] [id number], [place] [address] 08 Feb, 2013 [facility] [place] [facility] [address] [facility] [id number], [place] [address] Jan, [facility] [place] [facility] [address] [facility] [id number], [place] [address] Jan, [facility] [place] [facility] [address] [id number], [place] [address] Jan, [facility] [place] [facility] [address] [facility] [id number], [place] [address] 06 Jan, 2013 [facility] [place] [facility] [address] [id number], [place] [address] 04 Jan, 2013 [facility] [place] [facility] [address] [facility] [id number], [place] [address] 02 Jan, 2013 [facility] [place] [facility] [address] [facility] [id number], [place] [address] 17 Dec, 2012 [facility] [place] [facility] [address] [id number] [place] [address] 12 Dec, 2012 [facility] [place] [facility] [address] [id number] [place] [address] 05 Dec, 2012 [facility] [place] [facility] [address] [id number] [place] [address] 05 Dec, 2012 [facility] [place] [facility] [address] [id number] [place] [address] Oct, [facility] [place] [facility] [address] [id number] [place] [address] Oct, [facility] [place] [facility] [address] [id number] [place] [address] Oct, [facility] [place] [facility] [address] [id number] [place] [address] Oct, [facility] [place] [facility] [address] [id number] [place] [address] Oct, [facility] [place] [facility] [address] [id number] [place] [address] Sep, [facility] [place] [facility] [address] [id number] [place] [address] August, [facility] [place] [facility] [address] [id number] [place] [address] August, [facility] [place] [facility] [address] [id number] [place] [address] August, [facility] [place] [facility] [address] [id number] [place] [address] August, [facility] [place] [facility] [address] [id number] [place] [address] August, [facility] [place] [facility] [address] [id number] [place] [address] August, [facility] [place] [facility] [address] [id number] [place] [address] August, [facility] [address] [id number] [place] [address] August, [facility] [address] [id number] [place] [address] August, [facility] [address] [id number] [place] [address] August, [facility] [address] [id number] [place] [address] August, [facility] [address] [id number] [place] [address] August, [facility] [address] [id number] [place] [address] Jun, [facility] [address] [id number] [place] [address] Jun, [facility] [address] [id number] [place] [address] Jun, [facility] [address] [id number] [place] [address] May, [facility] [address] [id number] [place] [address] May, [facility] [address] [id number] [place] [address] Mar, [facility] [place] [facility] [address] [id number] [place] [address] Mar, [facility] [place] [facility] [address] [id number] [place] [address] Feb, [facility] [place] [facility] [address] [id number] [place] [address] Feb, [facility] [place] [facility] [address] [id number] [place] [address] Feb, [facility] [place] [facility] [address] [id number] [place] [address] 13 Feb, 2012 [facility] [address] [id number] [place] [address] 25 Dec, 2011 [facility] [address] [id number] [place] [address] August, [facility] [address] [id number] [place] [address] Jul, [facility] [address] [id number] [place] [address] Jul, [facility] [address] [id number] [place] [address] Jun, [facility] [address] [id number] [place] [address] Jun, [facility] [address] [id number] [place] [address] Jun, [facility] [address] [id number] [place] [address] Jun, [facility] [address] [id number] [place] [address] Jun, [facility] [address] [id number] [place] [address] May, [facility] [address] [id number] [place] [address] May, [facility] [address] [id number] [place] [address] 14 May, 2011 [facility] [address] [id number] [place] [address] May, [facility] [address] [id number] [place] [address] Apr, [facility] [address] [id number] [place] [address] Apr, [facility] [address] [id number], [place] [address] Apr, [facility] [id number], [place] [address] Mar, [facility] [id number], [place] [address] Mar, [facility] [id number], [place] [address] Mar, [facility] [id number], [place] [address] Mar, [facility] [id number] [place] [address] May, [facility] [id number], [place] [address] Feb, [facility] [id number], [place] [address] Feb, [facility] [id number], [place] [address] Jan, [facility] [id number], [place] [address] Jan, IMMUNIZATIONS No Known Immunizations SOCIAL HISTORY Never Assessed REASON FOR VISIT Controlled Med Refill 09/23/17 PLAN OF CARE VITAL SIGNS MEDICATIONS Medication Instructions Dosage Frequency Start Date End Date Duration Status Oxycodone HCl 10 MG Orally Once a day 1 tablet 24h August, 28 days Active Xanax 1 MG Orally [...]
--- OUTSIDE RECORDS SUMMARY | 2018-09-19 01:33 | XMS REPORT ---
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 Active 799714182 Problem 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 Active 950936797 Problem Other chronic pain G89.29 Active 64417292 Problem Osteoarthritis, unspecified osteoarthritis type, unspecified site M19.90 Active 154502295 ALLERGIES No Information ENCOUNTERS Encounter Location Date Diagnosis [place] [address] [address] Oct, Osteoarthritis, unspecified osteoarthritis type, unspecified site M19.90 [place] [address] [place] [id number] [place] [address] Sep, [place] [address] [place] [id number] [place] [address] Sep, Osteoarthritis, unspecified osteoarthritis type, unspecified site M19.90 [place] [address] [place] [id number] [place] [address] August, Other chronic pain G89.29 and Other specified personal risk factors, not elsewhere classified Z91.89 [place] [address] [place] [id number] [place] [address] August, Osteoarthritis, unspecified osteoarthritis type, unspecified site M19.90 [place] [address], [place] [address] Jul, Osteoarthritis, unspecified osteoarthritis type, unspecified site M19.90 [place] [address] [place] [id number] [place] [address] Jun, Osteoarthritis, unspecified osteoarthritis type, unspecified site M19.90 [place] [address] [place] [id number] [place] [address] Jun, [place] [address] [place] [id number] [place] [address] Jun, Osteoarthritis, unspecified osteoarthritis type, unspecified site M19.90 [place] [address] [place] [id number] [place] [address] May, [place] [address] [place] [id number] [place] [address] May, Benign prostatic hyperplasia, unspecified whether lower urinary tract symptoms present N40.0 [place] [address] [place] [id number] [place] [address] May, Osteoarthritis, unspecified osteoarthritis type, unspecified site M19.90 [place] [id number] [place] [address] May, [place] [address], [place] [address] Apr, Other chronic pain G89.29 ; Family history of diabetes mellitus Z83.3 ; Forgetfulness R68.89 ; History of multiple concussions Z87.820 ; Gastroesophageal reflux disease without esophagitis K21.9 and Screening, lipid Z13.220 [place] [id number] [place] [address] Apr, Other chronic pain G89.29 ; Forgetfulness R68.89 ; History of multiple concussions Z87.820 ; Gastroesophageal reflux disease without esophagitis K21.9 ; Screening, lipid Z13.220 and Family history of diabetes mellitus Z83.3 [place] [address], [place] [address] Apr, Osteoarthritis, unspecified osteoarthritis type, unspecified site M19.90 [facility] [address], [place] [address] Apr, Osteoarthritis, unspecified osteoarthritis type, unspecified site M19.90 [facility] [address], [place] [address] Apr, [facility] [address], [place] [address] Mar, Osteoarthritis, unspecified osteoarthritis type, unspecified site M19.90 [place] [address], [place] [address] Feb, Osteoarthritis, unspecified osteoarthritis type, unspecified site M19.90 [place] [address], [place] [address] Jan, Osteoarthritis, unspecified osteoarthritis type, unspecified site M19.90 [place] [address], [place] [address] Dec, Osteoarthritis, unspecified osteoarthritis type, unspecified site M19.90 [place] [address], [place] [address] Dec, [place] [address], [place] [address] Nov, Encounter for screening for lipid disorder Z13.220 [place] [address], [place] [address] Nov, Osteoarthritis, unspecified osteoarthritis type, unspecified site M19.90 ; Encounter for screening for lipid disorder Z13.220 and Other chronic pain G89.29 [facility] [address], [place] [address] Nov, Osteoarthritis, unspecified osteoarthritis type, unspecified site M19.90 [facility] [address], [place] [address] Nov, [facility] [address] [place] [id number] [place] [address] Nov, [facility] [address] [place] [id number] [place] [address] Oct, Osteoarthritis, unspecified osteoarthritis type, unspecified site M19.90 [place] [address] [place] [id number] [place] [address] Oct, Gastroesophageal reflux disease without esophagitis K21.9 [place] [address] [place] [id number] [place] [address] Sep, Osteoarthritis, unspecified osteoarthritis type, unspecified site M19.90 [place] [address] [place] [id number] [place] [address] August, Osteoarthritis, unspecified osteoarthritis type, unspecified site M19.90 [place] [address] [place] [id number] [place] [address] August, Osteoarthritis, unspecified osteoarthritis type, unspecified site M19.90 [place] [address] [place] [id number] [place] [address] Jul, Osteoarthritis, unspecified osteoarthritis type, unspecified site M19.90 and Gastroesophageal reflux disease without esophagitis K21.9 [place] [address] [place] [id number] [place] [address] Jul, Osteoarthritis, unspecified osteoarthritis type, unspecified site M19.90 [place] [id number] [place] [address] Jun, Ventral hernia without obstruction or gangrene K43.9 [facility] [address] [place] [id number] [place] [address] Jun, Osteoarthritis, unspecified osteoarthritis type, unspecified site M19.90 [place] [address] [place] [id number] [place] [address] May, [facility] [address], [place] [address] May, Osteoarthritis, unspecified osteoarthritis type, unspecified site M19.90 [facility] [address], [place] [address] Apr, Osteoarthritis, unspecified osteoarthritis type, unspecified site M19.90 [facility] [address] [place] [id number] [place] [address] Mar, [facility] [address] [place] [id number] [place] [address] Mar, Osteoarthritis, unspecified osteoarthritis type, unspecified site M19.90 and Lumbago with sciatica, left side M54.42 [facility] [address] [place] [id number] [place] [address] Feb, [facility] [address] [place] [id number] [place] [address] Feb, [facility] [address] [place] [id number] [place] [address] Feb, Osteoarthritis, unspecified osteoarthritis type, unspecified site M19.90 [facility] [id number] [place] [address] Feb, [facility] [id number] [place] [address] Feb, Low back pain M54.5 and Other chronic pain G89.29 [facility] [address] [place] [address] [id number] [address] Feb, [facility] [address] [place] [id number] [place] [address] Jan, [facility] [address] [place] [id number] [place] [address] Jan, [facility] [address] [place] [id number] [place] [address] Dec, Lumbago with sciatica, left side M54.42 [facility] [address] [place] [id number] [place] [address] 15 Dec, 2015 Irritable bowel syndrome with both constipation and diarrhea K58.0 ; Screening, lipid Z13.220 ; Nocturia R35.1 ; Family history of diabetes mellitus Z83.3 and Dysuria R30.0 [place] [address] [place] [id number] [place] [address] 14 Dec, 2015 Irritable bowel syndrome with both constipation and diarrhea K58.0 ; Nocturia R35.1 ; Family history of diabetes mellitus Z83.3 ; Dysuria R30.0 and Screening, lipid Z13.220 [place] [address] [place] [id number] [place] [address] Dec, [place] [address] [place] [id number] [place] [address] Dec, [facility] [address] [place] [id number] [place] [address] Dec, Pain with swallowing R13.10 [facility] [address] [place] [id number] [place] [address] Nov, [facility] [address] [place] [id number] [place] [address] Nov, [facility] [address] [place] [id number] [place] [address] Oct, [facility] [address] [place] [id number] [place] [address] Sep, [facility] [address] [address] Sep, Osteoarthritis, unspecified osteoarthritis type, unspecified site M19.90 [facility] [address] [place] [id number] [place] [address] Sep, Back pain M54.9 [facility] [address] [place] [address] [id number] [address] Sep, Lumbago with sciatica, right side M54.41 and Bilateral impacted cerumen H61.23 [facility] [address] [place] [id number] [place] [address] Sep, [facility] [address] [place] [id number] [place] [address] August, Bronchitis J40 [facility] [address] [place] [id number] [place] [address] August, [facility] [address] [place] [id number] [place] [address] August, [facility] [address] [place] [id number] [place] [address] August, [facility] [address] [place] [id number] [place] [address] Jul, [facility] [address] [place] [id number] [place] [address] Jul, Back pain M54.9 [facility] [address] [place] [id number] [place] [address] Jun, Degenerative disc disease at L5-S1 level M51.36 and Bronchitis J40 [facility] [address] [place] [id number] [place] [address] Jun, [facility] [address] [place] [id number] [place] [address] May, [facility] [address] [place] [id number] [place] [address] Apr, [facility] [address] [place] [id number] [place] [address] Mar, [facility] [address] [place] [id number] [address] Mar, [facility] [address], [place] [address] Feb, [facility] [id number] [place] [address] Jan, [facility] [address], [place] [address] Dec, [facility] [address] [place] [id number] [place] [address] Nov, [facility] [address] [place] [id number] [place] [address] Oct, [facility] [address] [place] [id number] [place] [address] Oct, Right shoulder pain 719.41 [facility] [address] [place] [id number] [place] [address] Sep, [facility] [address] [place] [id number] [place] [address] Sep, Vertigo 780.4 and Elbow fracture, right 812.40 [facility] [address] [place] [id number] [place] [address] Sep, [facility] [address] [place] [id number] [address] August, [facility] [address], [place] [address] Jul, [facility] [address] [place] [id number] [address] Jul, [facility] [id number] [place] [address] Jun, [facility] [address], [place] [address] Jun, [facility] [address], [place] [address] Jun, [facility] [place] [facility] [address] [id number] [place] [address] Jun, [facility] [place] [facility] [address] [id number] [place] [address] Jun, [facility] [place] [facility] [address] [id number] [place] [address] Jun, [facility] [place] [facility] [address] [id number] [place] [address] May, [facility] [place] [facility] [address] [id number] [place] [address] May, [facility] [place] [facility] [address] [id number] [place] [address] May, [facility] [place] [facility] [address] [id number] [place] [address] May, [facility] [place] [facility] [address] [id number] [place] [address] May, [facility] [place] [facility] [address] [id number] [place] [address] May, [facility] [place] [facility] [address] [facility] [id number] [place] [address] Apr, [facility] [place] [facility] [address] [id number] [place] [address] Apr, [facility] [place] [facility] [address] [id number] [place] [address] Apr, [facility] [place] [facility] [address] [id number] [place] [address] Apr, [facility] [place] [facility] [address] [id number] [place] [address] Apr, [facility] [place] [facility] [address] [id number] [place] [address] Apr, [facility] [place] [facility] [address] [id number] [place] [address] Apr, [facility] [place] [facility] [address] [id number] [place] [address] Mar, [facility] [place] [facility] [address] [id number] [place] [address] Mar, [facility] [place] [facility] [address] [id number] [place] [address] Mar, [facility] [place] [facility] [address] [id number] [place] [address] Mar, [facility] [place] [facility] [address] [id number] [place] [address] Mar, [facility] [place] [facility] [address] [id number] [place] [address] Mar, [facility] [place] [facility] [address] [id number] [place] [address] Mar, [facility] [place] [facility] [address] [id number] [place] [address] Mar, [facility] [place] [facility] [address] [id number] [place] [address] Mar, [facility] [place] [facility] [address] [id number] [place] [address] Mar, [facility] [place] [facility] [address] [id number] [place] [address] Mar, [facility] [place] [facility] [address] [id number] [place] [address] Mar, [facility] [place] [facility] [address] [id number] [place] [address] Mar, [facility] [place] [facility] [address] [id number] [place] [address] Mar, [facility] [place] [facility] [address] [id number] [place] [address] Mar, [facility] [place] [facility] [address] [id number] [place] [address] Feb, [facility] [place] [facility] [address] [id number] [place] [address] Feb, [facility] [place] [facility] [address] [id number] [place] [address] Feb, [facility] [place] [facility] [address] [id number] [place] [address] Feb, [facility] [place] [facility] [address] [id number] [place] [address] Feb, [facility] [place] [facility] [address] [id number] [place] [address] Feb, [facility] [place] [facility] [address] [id number] [place] [address] Jan, [facility] [place] [facility] [address] [id number] [place] [address] Jan, [facility] [place] [facility] [address] [id number] [place] [address] Jan, [facility] [place] [facility] [address] [id number] [place] [address] Jan, [facility] [place] [facility] [address] [id number] [place] [address] Jan, [facility] [place] [facility] [address] [id number] [place] [address] Jan, [facility] [place] [facility] [address] [id number] [place] [address] Dec, [facility] [place] [facility] [address] [id number] [place] [address] 29 Dec, 2013 [facility] [place] [facility] [address] [id number] [place] [address] 26 Dec, 2013 [facility] [place] [facility] [address] [id number] [place] [address] 11 Dec, 2013 [facility] [place] [facility] [address] [id number] [place] [address] 11 Dec, 2013 [facility] [place] [facility] [address] [id number] [place] [address] Dec, 2013 [facility] [place] [facility] [address] [id number] [place] [address] Dec, 2013 [facility] [place] [facility] [address] [id number] [place] [address] Dec, 2013 [facility] [place] [facility] [address] [id number] [place] [address] Dec, 2013 [facility] [place] [facility] [address] [id number] [place] [address] Dec, 2013 [facility] [place] [facility] [address] [id number] [place] [address] Dec, 2013 [facility] [place] [facility] [address] [id number] [place] [address] Nov, [facility] [place] [facility] [address] [id number] [place] [address] Nov, [facility] [place] [facility] [address] [id number] [place] [address] Nov, [facility] [place] [facility] [address] [id number] [address] Nov, [facility] [place] [facility] [address] [id number], [place] [address] Nov, [facility] [place] [facility] [address] [id number] [place] [address] Nov, [facility] [place] [facility] [address] [id number] [place] [address] Nov, [facility] [place] [facility] [address] [id number] [place] [address] Nov, [facility] [place] [facility] [address] [id number], [place] [address] Nov, [facility] [place] [facility] [address] [id number] [place] [address] Nov, [facility] [place] [facility] [address] [id number] [place] [address] Oct, [facility] [place] [facility] [address] [id number] [place] [address] Oct, [facility] [place] [facility] [address] [id number] [place] [address] Oct, [facility] [place] [facility] [address] [id number] [place] [address] Oct, [facility] [place] [facility] [address] [id number] [place] [address] Oct, [facility] [place] [facility] [address] [id number] [place] [address] Oct, [facility] [place] [facility] [address] [id number] [place] [address] Oct, [facility] [place] [facility] [address] [id number] [place] [address] Oct, [facility] [place] [facility] [address] [id number] [place] [address] Oct, [facility] [place] [facility] [address] [id number] [place] [address] Oct, [facility] [place] [facility] [address] [id number] [place] [address] Oct, [facility] [place] [facility] [address] [id number] [place] [address] Oct, [facility] [place] [facility] [address] [id number] [place] [address] Oct, [facility] [place] [facility] [address] [id number] [place] [address] Sep, [facility] [place] [facility] [address] [id number] [place] [address] Sep, [facility] [place] [facility] [address] [id number] [place] [address] Sep, [facility] [place] [facility] [address] [id number] [place] [address] Sep, [facility] [place] [facility] [address] [id number] [place] [address] August, [facility] [place] [facility] [address] [id number] [place] [address] August, [facility] [place] [facility] [address] [id number] [place] [address] August, [facility] [place] [facility] [address] [id number] [place] [address] August, [facility] [place] [facility] [address] [id number] [place] [address] August, [facility] [place] [facility] [address] [id number] [place] [address] August, [facility] [place] [facility] [address] [id number] [place] [address] August, [facility] [place] [facility] [address] [id number] [place] [address] August, [facility] [place] [facility] [address] [id number] [place] [address] Jul, [facility] [place] [facility] [address] [id number] [place] [address] Jul, [facility] [place] [facility] [address] [id number] [place] [address] Jun, [facility] [place] [facility] [address] [id number] [place] [address] Jun, [facility] [place] [facility] [address] [id number] [place] [address] Jun, [facility] [place] [facility] [address] [id number] [place] [address] Jun, [facility] [place] [facility] [address] [id number] [place] [address] Jun, [facility] [place] [facility] [address] [id number] [place] [address] Jun, [facility] [place] [facility] [address] [id number] [place] [address] May, [facility] [place] [facility] [address] [id number] [place] [address] May, [facility] [place] [facility] [address] [id number] [place] [address] May, [facility] [place] [facility] [address] [id number] [place] [address] May, [facility] [place] [facility] [address] [id number] [place] [address] May, [facility] [place] [facility] [address] [id number] [place] [address] 07 May, 2013 [facility] [place] [facility] [address] [id number] [place] [address] Apr, [facility] [place] [facility] [address] [id number] [place] [address] Apr, [facility] [place] [facility] [address] [id number] [place] [address] Feb, [facility] [place] [facility] [address] [id number] [place] [address] Feb, [facility] [place] [facility] [address] [id number] [place] [address] 15 Feb, 2013 [facility] [place] [facility] [address] [id number] [place] [address] 15 Feb, 2013 [facility] [place] [facility] [address] [id number] [place] [address] 13 Feb, 2013 [facility] [place] [facility] [address] [id number] [place] [address] 13 Feb, 2013 [facility] [place] [facility] [address] [id number] [place] [address] Feb, [facility] [place] [facility] [address] [id number] [place] [address] Feb, [facility] [place] [facility] [address] [id number] [place] [address] 08 Feb, 2013 [facility] [place] [facility] [address] [id number] [place] [address] Jan, [facility] [place] [facility] [address] [id number] [place] [address] Jan, [facility] [place] [facility] [address] [id number] [place] [address] Jan, [facility] [place] [facility] [address] [id number] [place] [address] Jan, [facility] [place] [facility] [address] [id number] [place] [address] Jan, [facility] [place] [facility] [address] [id number] [place] [address] Jan, [facility] [place] [facility] [address] [id number] [place] [address] 17 Dec, 2012 [facility] [place] [facility] [address] [id number] [place] [address] 12 Dec, 2012 [facility] [place] [facility] [address] [id number] [place] [address] 05 Dec, 2012 [facility] [place] [facility] [address] [id number] [place] [address] 05 Dec, 2012 [facility] [place] [facility] [address] [id number] [place] [address] Oct, [facility] [address] [id number] [place] [address] Oct, [facility] [address] [id number] [place] [address] Oct, [facility] [address] [id number] [place] [address] Oct, [facility] [address] [id number] [place] [address] Oct, [facility] [address] [id number] [place] [address] Sep, [facility] [address] [id number] [place] [address] August, [facility] [address] [id number] [place] [address] August, [facility] [address] [id number] [place] [address] August, [facility] [address] [id number] [place] [address] August, [facility] [address] [id number] [place] [address] August, [facility] [address] [id number] [place] [address] August, [facility] [place] [facility] [address] [id number] [place] [address] August, [facility] [place] [facility] [address] [id number] [place] [address] August, [facility] [place] [facility] [address] [id number] [place] [address] August, [facility] [place] [facility] [address] [id number] [place] [address] August, [facility] [place] [facility] [address] [id number] [place] [address] August, [facility] [address] [id number] [place] [address] August, [facility] [place] [facility] [address] [id number] [place] [address] Jun, [facility] [address] [id number] [place] [address] Jun, [facility] [place] [facility] [address] [id number] [place] [address] Jun, [facility] [place] [facility] [address] [id number] [place] [address] May, [facility] [place] [facility] [address] [id number] [place] [address] May, [facility] [address] [id number] [place] [address] Mar, [facility] [place] [facility] [address] [id number] [place] [address] Mar, [facility] [place] [facility] [address] [id number] [place] [address] Feb, [facility] [place] [facility] [address] [id number] [place] [address] Feb, [facility] [place] [facility] [address] [id number] [place] [address] Feb, [facility] [place] [facility] [address] [id number] [place] [address] Feb, [facility] [place] [facility] [address] [id number] [place] [address] Dec, [facility] [place] [facility] [address] [id number] [place] [address] August, [facility] [place] [facility] [address] [id number] [place] [address] Jul, [facility] [place] [facility] [address] [id number] [place] [address] 05 Jul, 2011 [facility] [place] [facility] [address] [id number] [place] [address] Jun, [facility] [place] [facility] [address] [id number] [place] [address] 13 Jun, 2011 [facility] [place] [facility] [address] [id number] [place] [address] Jun, [facility] [place] [facility] [address] [id number] [place] [address] Jun, [facility] [place] [facility] [address] [id number] [place] [address] Jun, [facility] [place] [facility] [address] [facility] [id number] [place] [address] May, [facility] [place] [facility] [address] [id number] [place] [address] May, [facility] [place] [facility] [address] [id number] [place] [address] May, [facility] [place] [facility] [address] [facility] [id number] [place] [address] May, [facility] [place] [facility] [address] [id number] [place] [address] Apr, [facility] [place] [facility] [address] [id number], [place] [address] Apr, [facility] [place] [facility] [address] [id number] [place] [address] Apr, [facility] [place] [facility] [address] [id number] [place] [address] Mar, [facility] [place] [facility] [address] [facility] [id number] [place] [address] Mar, [facility] [place] [facility] [address] [id number], [place] [address] Mar, [facility] [address] [facility] [id number], [place] [address] Mar, [facility] [address] [facility] [id number], [place] [address] May, [facility] [address] [facility] [id number], [place] [address] Feb, [facility] [address] [facility] [id number], [place] [address] Feb, [facility] [address] [facility] [id number], [place] [address] Jan, [facility] [address] [facility] [id number], [place] [address] Jan, IMMUNIZATIONS No Known Immunizations SOCIAL HISTORY Never Assessed REASON FOR VISIT Controlled Med Refill 08/26/17 PLAN OF CARE VITAL SIGNS MEDICATIONS Medication Instructions Dosage Frequency Start Date End Date Duration Status Oxycodone HCl 10 MG Orally Once a day 1 tablet 24h Jul, 28 days Active Xanax 1 MG Orally [...]
--- OUTSIDE RECORDS SUMMARY | 2018-09-19 01:33 | XMS REPORT ---
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 Active 297883415 Problem 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 Active 678281065 Problem Other chronic pain G89.29 Active 48610594 Problem Osteoarthritis, unspecified osteoarthritis type, unspecified site M19.90 Active 707958143 ALLERGIES No Information ENCOUNTERS Encounter Location Date Diagnosis [place] [address] [address] Oct, Osteoarthritis, unspecified osteoarthritis type, unspecified site M19.90 [place] [address] [place] [id number] [place] [address] Sep, [place] [address] [place] [id number] [place] [address] Sep, Osteoarthritis, unspecified osteoarthritis type, unspecified site M19.90 [place] [address] [place] [id number] [place] [address] August, Other chronic pain G89.29 and Other specified personal risk factors, not elsewhere classified Z91.89 [place] [address] [place] [id number] [place] [address] August, Osteoarthritis, unspecified osteoarthritis type, unspecified site M19.90 [place] [address], [place] [address] Jul, Osteoarthritis, unspecified osteoarthritis type, unspecified site M19.90 [place] [address] [place] [id number] [place] [address] Jun, Osteoarthritis, unspecified osteoarthritis type, unspecified site M19.90 [place] [address] [place] [id number] [place] [address] Jun, [place] [address] [place] [id number] [place] [address] Jun, Osteoarthritis, unspecified osteoarthritis type, unspecified site M19.90 [place] [address] [place] [id number] [place] [address] May, [place] [address] [place] [id number] [place] [address] May, Benign prostatic hyperplasia, unspecified whether lower urinary tract symptoms present N40.0 [place] [address] [id number] [place] [address] May, Osteoarthritis, unspecified osteoarthritis type, unspecified site M19.90 [place] [id number] [place] [address] May, [place] [address], [place] [address] Apr, Other chronic pain G89.29 ; Family history of diabetes mellitus Z83.3 ; Forgetfulness R68.89 ; History of multiple concussions Z87.820 ; Gastroesophageal reflux disease without esophagitis K21.9 and Screening, lipid Z13.220 [place] [address] [place] [address] Apr, Other chronic pain G89.29 ; Forgetfulness R68.89 ; History of multiple concussions Z87.820 ; Gastroesophageal reflux disease without esophagitis K21.9 ; Screening, lipid Z13.220 and Family history of diabetes mellitus Z83.3 [place] [address], [place] [address] Apr, Osteoarthritis, unspecified osteoarthritis type, unspecified site M19.90 [facility] [address], [place] [address] Apr, Osteoarthritis, unspecified osteoarthritis type, unspecified site M19.90 [facility] [address], [place] [address] Apr, [facility] [address], [place] [address] Mar, Osteoarthritis, unspecified osteoarthritis type, unspecified site M19.90 [place] [address], [place] [address] Feb, Osteoarthritis, unspecified osteoarthritis type, unspecified site M19.90 [place] [address], [place] [address] Jan, Osteoarthritis, unspecified osteoarthritis type, unspecified site M19.90 [place] [address], [place] [address] Dec, Osteoarthritis, unspecified osteoarthritis type, unspecified site M19.90 [place] [address], [place] [address] Dec, [place] [address], [place] [address] Nov, Encounter for screening for lipid disorder Z13.220 [place] [address], [place] [address] Nov, Osteoarthritis, unspecified osteoarthritis type, unspecified site M19.90 ; Encounter for screening for lipid disorder Z13.220 and Other chronic pain G89.29 [facility] [address], [place] [address] Nov, Osteoarthritis, unspecified osteoarthritis type, unspecified site M19.90 [facility] [address], [place] [address] Nov, [facility] [address] [place] [id number] [place] [address] Nov, [facility] [address] [place] [id number] [place] [address] Oct, Osteoarthritis, unspecified osteoarthritis type, unspecified site M19.90 [place] [address] [place] [id number] [place] [address] Oct, Gastroesophageal reflux disease without esophagitis K21.9 [place] [address] [place] [id number] [place] [address] Sep, Osteoarthritis, unspecified osteoarthritis type, unspecified site M19.90 [place] [address] [place] [id number] [place] [address] August, Osteoarthritis, unspecified osteoarthritis type, unspecified site M19.90 [place] [address] [place] [id number] [place] [address] August, Osteoarthritis, unspecified osteoarthritis type, unspecified site M19.90 [place] [address] [place] [id number] [place] [address] Jul, Osteoarthritis, unspecified osteoarthritis type, unspecified site M19.90 and Gastroesophageal reflux disease without esophagitis K21.9 [place] [address] [place] [id number] [place] [address] Jul, Osteoarthritis, unspecified osteoarthritis type, unspecified site M19.90 [place] [address] [place] [address] Jun, Ventral hernia without obstruction or gangrene K43.9 [facility] [address] [place] [id number] [place] [address] Jun, Osteoarthritis, unspecified osteoarthritis type, unspecified site M19.90 [place] [address] [place] [id number] [place] [address] May, [facility] [address], [place] [address] May, Osteoarthritis, unspecified osteoarthritis type, unspecified site M19.90 [facility] [address], [place] [address] Apr, Osteoarthritis, unspecified osteoarthritis type, unspecified site M19.90 [facility] [address] [place] [id number] [place] [address] Mar, [facility] [address] [id number] [place] [address] Mar, Osteoarthritis, unspecified osteoarthritis type, unspecified site M19.90 and Lumbago with sciatica, left side M54.42 [facility] [address] [place] [id number] [place] [address] Feb, [facility] [address] [address] [id number] [place] [address] Feb, [facility] [address] [id number] [place] [address] Feb, Osteoarthritis, unspecified osteoarthritis type, unspecified site M19.90 [facility] [address] [place] [address] Feb, [facility] [address] [place] [address] Feb, Low back pain M54.5 and Other chronic pain G89.29 [facility] [address] [id number] [address] Feb, [facility] [address] [place] [address] [id number] [place] [address] Jan, [facility] [address] [address] [id number] [place] [address] Jan, [facility] [address] [address] [id number] [place] [address] Dec, Lumbago with sciatica, left side M54.42 [facility] [address] [place] [id number] [place] [address] 15 Dec, 2015 Irritable bowel syndrome with both constipation and diarrhea K58.0 ; Screening, lipid Z13.220 ; Nocturia R35.1 ; Family history of diabetes mellitus Z83.3 and Dysuria R30.0 [place] [address] [place] [id number] [place] [address] 14 Dec, 2015 Irritable bowel syndrome with both constipation and diarrhea K58.0 ; Nocturia R35.1 ; Family history of diabetes mellitus Z83.3 ; Dysuria R30.0 and Screening, lipid Z13.220 [place] [address] [place] [id number] [place] [address] Dec, [place] [address] [place] [id number] [place] [address] Dec, [facility] [address] [address] [id number] [place] [address] Dec, Pain with swallowing R13.10 [facility] [address] [place] [id number] [place] [address] Nov, [facility] [address] [place] [id number] [place] [address] Nov, [facility] [address] [place] [id number] [place] [address] Oct, [facility] [address] [place] [id number] [place] [address] Sep, [facility] [address] [address] Sep, Osteoarthritis, unspecified osteoarthritis type, unspecified site M19.90 [facility] [address] [place] [id number] [place] [address] Sep, Back pain M54.9 [facility] [id number] [address] Sep, Lumbago with sciatica, right side M54.41 and Bilateral impacted cerumen H61.23 [facility] [address] [place] [id number] [place] [address] Sep, [facility] [address] [id number] [place] [address] August, Bronchitis J40 [facility] [address] [place] [id number] [place] [address] August, [facility] [address] [place] [address] [id number] [place] [address] August, [facility] [address] [id number] [place] [address] August, [facility] [address] [place] [id number] [place] [address] Jul, [facility] [address] [place] [id number] [place] [address] Jul, Back pain M54.9 [facility] [address] [id number] [place] [address] Jun, Degenerative disc disease at L5-S1 level M51.36 and Bronchitis J40 [facility] [address] [place] [id number] [place] [address] Jun, [facility] [address] [place] [id number] [place] [address] May, [facility] [address] [place] [id number] [place] [address] Apr, [facility] [address] [place] [id number] [place] [address] Mar, [facility] [id number] [place] [address] Mar, [facility] [address], [place] [address] Feb, [facility] [id number] [place] [address] Jan, [facility] [address], [place] [address] Dec, [facility] [address] [place] [id number] [place] [address] Nov, [facility] [address] [place] [id number] [place] [address] Oct, [facility] [address] [place] [id number] [place] [address] Oct, Right shoulder pain 719.41 [facility] [address] [place] [id number] [place] [address] Sep, [facility] [address] [place] [id number] [place] [address] Sep, Vertigo 780.4 and Elbow fracture, right 812.40 [facility] [address] [place] [id number] [place] [address] Sep, [facility] [address] [id number] [place] [address] August, [facility] [address], [place] [address] Jul, [facility] [address] [id number] [place] [address] Jul, [facility] [id number] [place] [address] Jun, [facility] [address], [place] [address] Jun, [facility] [address], [place] [address] Jun, [facility] [place] [facility] [address] [id number] [place] [address] Jun, [facility] [place] [facility] [address] [id number] [place] [address] Jun, [facility] [place] [facility] [address] [id number] [place] [address] Jun, [facility] [place] [facility] [address] [id number] [place] [address] May, [facility] [place] [facility] [address] [id number] [place] [address] May, [facility] [place] [facility] [address] [id number] [place] [address] May, [facility] [place] [facility] [address] [id number] [place] [address] May, [facility] [place] [facility] [address] [id number] [place] [address] May, [facility] [place] [facility] [address] [id number] [place] [address] May, [facility] [place] [facility] [address] [facility] [id number] [place] [address] Apr, [facility] [place] [facility] [address] [id number] [place] [address] Apr, [facility] [place] [facility] [address] [id number] [place] [address] Apr, [facility] [place] [facility] [address] [id number] [place] [address] Apr, [facility] [place] [facility] [address] [id number] [place] [address] Apr, [facility] [place] [facility] [address] [id number] [place] [address] Apr, [facility] [place] [facility] [address] [id number] [place] [address] Apr, [facility] [place] [facility] [address] [id number] [place] [address] Mar, [facility] [place] [facility] [address] [id number] [place] [address] Mar, [facility] [place] [facility] [address] [id number] [place] [address] Mar, [facility] [place] [facility] [address] [id number] [place] [address] Mar, [facility] [place] [facility] [address] [id number] [place] [address] Mar, [facility] [place] [facility] [address] [id number] [place] [address] Mar, [facility] [place] [facility] [address] [id number] [place] [address] Mar, [facility] [place] [facility] [address] [id number] [place] [address] Mar, [facility] [place] [facility] [address] [id number] [place] [address] Mar, [facility] [place] [facility] [address] [id number] [place] [address] Mar, [facility] [place] [facility] [address] [id number] [place] [address] Mar, [facility] [place] [facility] [address] [id number] [place] [address] Mar, [facility] [place] [facility] [address] [id number] [place] [address] Mar, [facility] [place] [facility] [address] [id number] [place] [address] Mar, [facility] [place] [facility] [address] [id number] [place] [address] Mar, [facility] [place] [facility] [address] [id number] [place] [address] Feb, [facility] [place] [facility] [address] [id number] [place] [address] Feb, [facility] [place] [facility] [address] [id number] [place] [address] Feb, [facility] [place] [facility] [address] [id number] [place] [address] Feb, [facility] [place] [facility] [address] [id number] [place] [address] Feb, [facility] [place] [facility] [address] [id number] [place] [address] Feb, [facility] [place] [facility] [address] [id number] [place] [address] Jan, [facility] [place] [facility] [address] [id number] [place] [address] Jan, [facility] [place] [facility] [address] [id number] [place] [address] Jan, [facility] [place] [facility] [address] [id number] [place] [address] Jan, [facility] [place] [facility] [address] [id number] [place] [address] Jan, [facility] [place] [facility] [address] [id number] [place] [address] Jan, [facility] [place] [facility] [address] [id number] [place] [address] Dec, [facility] [place] [facility] [address] [id number] [place] [address] 29 Dec, 2013 [facility] [place] [facility] [address] [id number] [place] [address] 26 Dec, 2013 [facility] [place] [facility] [address] [id number] [place] [address] 11 Dec, 2013 [facility] [place] [facility] [address] [id number] [place] [address] 11 Dec, 2013 [facility] [place] [facility] [address] [id number] [place] [address] Dec, 2013 [facility] [place] [facility] [address] [id number] [place] [address] Dec, 2013 [facility] [place] [facility] [address] [id number] [place] [address] Dec, 2013 [facility] [place] [facility] [address] [id number] [place] [address] Dec, 2013 [facility] [place] [facility] [address] [id number] [place] [address] Dec, 2013 [facility] [place] [facility] [address] [id number] [place] [address] Dec, 2013 [facility] [place] [facility] [address] [id number] [place] [address] Nov, [facility] [place] [facility] [address] [id number] [place] [address] Nov, [facility] [place] [facility] [address] [id number] [place] [address] Nov, [facility] [place] [facility] [address] [id number], [place] [address] Nov, [facility] [place] [facility] [address] [id number], [place] [address] Nov, [facility] [place] [facility] [address] [id number] [place] [address] Nov, [facility] [place] [facility] [address] [id number] [place] [address] Nov, [facility] [place] [facility] [address] [id number] [place] [address] Nov, [facility] [place] [facility] [address] [id number], [place] [address] Nov, [facility] [place] [facility] [address] [id number] [place] [address] Nov, [facility] [place] [facility] [address] [id number] [place] [address] Oct, [facility] [place] [facility] [address] [id number] [place] [address] Oct, [facility] [place] [facility] [address] [id number] [place] [address] Oct, [facility] [place] [facility] [address] [id number] [place] [address] Oct, [facility] [place] [facility] [address] [id number] [place] [address] Oct, [facility] [place] [facility] [address] [id number] [place] [address] Oct, [facility] [place] [facility] [address] [id number] [place] [address] Oct, [facility] [place] [facility] [address] [id number] [place] [address] Oct, [facility] [place] [facility] [address] [id number] [place] [address] Oct, [facility] [place] [facility] [address] [id number] [place] [address] Oct, [facility] [place] [facility] [address] [id number] [place] [address] Oct, [facility] [place] [facility] [address] [id number] [place] [address] Oct, [facility] [place] [facility] [address] [id number] [place] [address] Oct, [facility] [place] [facility] [address] [id number] [place] [address] Sep, [facility] [place] [facility] [address] [id number] [place] [address] Sep, [facility] [place] [facility] [address] [id number] [place] [address] Sep, [facility] [place] [facility] [address] [id number] [place] [address] Sep, [facility] [place] [facility] [address] [id number] [place] [address] August, [facility] [place] [facility] [address] [id number] [place] [address] August, [facility] [place] [facility] [address] [id number] [place] [address] August, [facility] [place] [facility] [address] [id number] [place] [address] August, [facility] [place] [facility] [address] [id number] [place] [address] August, [facility] [place] [facility] [address] [id number] [place] [address] August, [facility] [place] [facility] [address] [id number] [place] [address] August, [facility] [place] [facility] [address] [id number] [place] [address] August, [facility] [place] [facility] [address] [id number] [place] [address] Jul, [facility] [place] [facility] [address] [id number] [place] [address] Jul, [facility] [place] [facility] [address] [id number] [place] [address] Jun, [facility] [place] [facility] [address] [id number] [place] [address] Jun, [facility] [place] [facility] [address] [id number] [place] [address] Jun, [facility] [place] [facility] [address] [id number] [place] [address] Jun, [facility] [place] [facility] [address] [id number] [place] [address] Jun, [facility] [place] [facility] [address] [id number] [place] [address] Jun, [facility] [place] [facility] [address] [id number] [place] [address] May, [facility] [place] [facility] [address] [id number] [place] [address] May, [facility] [place] [facility] [address] [id number] [place] [address] May, [facility] [place] [facility] [address] [id number] [place] [address] May, [facility] [place] [facility] [address] [id number] [place] [address] May, [facility] [place] [facility] [address] [id number] [place] [address] 07 May, 2013 [facility] [place] [facility] [address] [id number] [place] [address] Apr, [facility] [place] [facility] [address] [id number] [place] [address] Apr, [facility] [place] [facility] [address] [id number] [place] [address] Feb, [facility] [place] [facility] [address] [id number] [place] [address] Feb, [facility] [place] [facility] [address] [id number] [place] [address] 15 Feb, 2013 [facility] [place] [facility] [address] [id number] [place] [address] 15 Feb, 2013 [facility] [place] [facility] [address] [id number] [place] [address] 13 Feb, 2013 [facility] [place] [facility] [address] [id number] [place] [address] 13 Feb, 2013 [facility] [place] [facility] [address] [id number] [place] [address] Feb, [facility] [place] [facility] [address] [id number] [place] [address] Feb, [facility] [place] [facility] [address] [id number] [place] [address] 08 Feb, 2013 [facility] [place] [facility] [address] [id number] [place] [address] Jan, [facility] [place] [facility] [address] [id number] [place] [address] Jan, [facility] [place] [facility] [address] [id number] [place] [address] Jan, [facility] [place] [facility] [address] [id number] [place] [address] Jan, [facility] [place] [facility] [address] [id number] [place] [address] Jan, [facility] [place] [facility] [address] [id number] [place] [address] Jan, [facility] [place] [facility] [address] [id number] [place] [address] 17 Dec, 2012 [facility] [place] [facility] [address] [id number] [place] [address] 12 Dec, 2012 [facility] [place] [facility] [address] [id number] [place] [address] 05 Dec, 2012 [facility] [place] [facility] [address] [id number] [place] [address] 05 Dec, 2012 [facility] [place] [facility] [address] [id number] [place] [address] Oct, [facility] [address] [id number] [place] [address] Oct, [facility] [facility] [address] [id number] [place] [address] Oct, [facility] [address] [id number] [place] [address] Oct, [facility] [address] [id number] [place] [address] Oct, [facility] [address] [id number] [place] [address] Sep, [facility] [address] [id number] [place] [address] August, [facility] [address] [id number] [place] [address] August, [facility] [address] [id number] [place] [address] August, [facility] [address] [id number] [place] [address] August, [facility] [address] [id number] [place] [address] August, [facility] [address] [id number] [place] [address] August, [facility] [place] [facility] [address] [id number] [place] [address] August, [facility] [place] [facility] [address] [id number] [place] [address] August, [facility] [place] [facility] [address] [id number] [place] [address] August, [facility] [place] [facility] [address] [id number] [place] [address] August, [facility] [place] [facility] [address] [id number] [place] [address] August, [facility] [address] [id number] [place] [address] August, [facility] [place] [facility] [address] [id number] [place] [address] Jun, [facility] [address] [id number] [place] [address] Jun, [facility] [place] [facility] [address] [id number] [place] [address] Jun, [facility] [place] [facility] [address] [id number] [place] [address] May, [facility] [place] [facility] [address] [id number] [place] [address] May, [facility] [address] [id number] [place] [address] Mar, [facility] [place] [facility] [address] [id number] [place] [address] Mar, [facility] [place] [facility] [address] [id number] [place] [address] Feb, [facility] [place] [facility] [address] [id number] [place] [address] Feb, [facility] [place] [facility] [address] [id number] [place] [address] Feb, [facility] [place] [facility] [address] [id number] [place] [address] Feb, [facility] [place] [facility] [address] [id number] [place] [address] Dec, [facility] [place] [facility] [address] [id number] [place] [address] August, [facility] [place] [facility] [address] [id number] [place] [address] Jul, [facility] [place] [facility] [address] [id number] [place] [address] 05 Jul, 2011 [facility] [place] [facility] [address] [id number] [place] [address] Jun, [facility] [place] [facility] [address] [id number] [place] [address] 13 Jun, 2011 [facility] [place] [facility] [address] [id number] [place] [address] Jun, [facility] [place] [facility] [address] [id number] [place] [address] Jun, [facility] [place] [facility] [address] [id number] [place] [address] Jun, [facility] [place] [facility] [address] [facility] [id number] [place] [address] May, [facility] [place] [facility] [address] [id number] [place] [address] May, [facility] [place] [facility] [address] [id number] [place] [address] May, [facility] [place] [facility] [address] [facility] [id number] [place] [address] May, [facility] [place] [facility] [address] [id number] [place] [address] Apr, [facility] [place] [facility] [address] [id number], [place] [address] Apr, [facility] [place] [facility] [address] [id number] [place] [address] Apr, [facility] [place] [facility] [address] [id number] [place] [address] Mar, [facility] [place] [facility] [address] [facility] [id number] [place] [address] Mar, [facility] [place] [facility] [address] [id number], [place] [address] Mar, [facility] [address] [facility] [id number], [place] [address] Mar, [facility] [address] [facility] [id number], [place] [address] May, [facility] [address] [facility] [id number], [place] [address] Feb, [facility] [address] [facility] [id number], [place] [address] Feb, [facility] [address] [facility] [id number], [place] [address] Jan, [facility] [address] [facility] [id number], [place] [address] Jan, IMMUNIZATIONS No Known Immunizations SOCIAL HISTORY Never Assessed REASON FOR VISIT Controlled Med Refill 07/29/17 PLAN OF CARE VITAL SIGNS MEDICATIONS Medication Instructions Dosage Frequency Start Date End Date Duration Status Xanax 1 MG Orally Twice a day 1 tablet 12h 25 Jun, 2014 28 days Active Oxycodone HCl 10 MG Orally Once a day 1 tablet 24h Jul, 28 days Active RESULTS No Results PROCEDURES [...]
--- OUTSIDE RECORDS SUMMARY | 2018-09-19 01:34 | XMS REPORT ---
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 Active 325728292 Problem 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 Active 980902072 Problem Other chronic pain G89.29 Active 86766605 Problem Osteoarthritis, unspecified osteoarthritis type, unspecified site M19.90 Active 762730190 ALLERGIES No Information ENCOUNTERS Encounter Location Date Diagnosis [place] [address] [address] Oct, Osteoarthritis, unspecified osteoarthritis type, unspecified site M19.90 [place] [address] [place] [id number] [place] [address] Sep, [place] [address] [place] [id number] [place] [address] Sep, Osteoarthritis, unspecified osteoarthritis type, unspecified site M19.90 [place] [address] [place] [id number] [place] [address] August, Other chronic pain G89.29 and Other specified personal risk factors, not elsewhere classified Z91.89 [place] [address] [place] [id number] [place] [address] August, Osteoarthritis, unspecified osteoarthritis type, unspecified site M19.90 [place] [address] [address] Jul, Osteoarthritis, unspecified osteoarthritis type, unspecified site M19.90 [place] [address] [place] [id number] [place] [address] Jun, Osteoarthritis, unspecified osteoarthritis type, unspecified site M19.90 [place] [address] [place] [id number] [place] [address] Jun, [place] [address] [place] [id number] [place] [address] Jun, Osteoarthritis, unspecified osteoarthritis type, unspecified site M19.90 [place] [address] [place] [id number] [place] [address] May, [place] [address] [place] [id number] [place] [address] May, Benign prostatic hyperplasia, unspecified whether lower urinary tract symptoms present N40.0 [place] [address] [place] [id number] [place] [address] May, Osteoarthritis, unspecified osteoarthritis type, unspecified site M19.90 [place] [address] [place] [address] May, [place] [address] [address] Apr, Other chronic pain G89.29 ; Family history of diabetes mellitus Z83.3 ; Forgetfulness R68.89 ; History of multiple concussions Z87.820 ; Gastroesophageal reflux disease without esophagitis K21.9 and Screening, lipid Z13.220 [place] [address] [place] [address] Apr, Other chronic pain G89.29 ; Forgetfulness R68.89 ; History of multiple concussions Z87.820 ; Gastroesophageal reflux disease without esophagitis K21.9 ; Screening, lipid Z13.220 and Family history of diabetes mellitus Z83.3 [place] [address] [address] Apr, Osteoarthritis, unspecified osteoarthritis type, unspecified site M19.90 [facility] [address] [address] Apr, Osteoarthritis, unspecified osteoarthritis type, unspecified site M19.90 [facility] [address] [address] Apr, [facility] [address] [address] Mar, Osteoarthritis, unspecified osteoarthritis type, unspecified site M19.90 [place] [address] [address] Feb, Osteoarthritis, unspecified osteoarthritis type, unspecified site M19.90 [place] [address] [address] Jan, Osteoarthritis, unspecified osteoarthritis type, unspecified site M19.90 [place] [address] [address] Dec, Osteoarthritis, unspecified osteoarthritis type, unspecified site M19.90 [place] [address] [address] Dec, [place] [address] [address] Nov, Encounter for screening for lipid disorder Z13.220 [place] [address] [address] Nov, Osteoarthritis, unspecified osteoarthritis type, unspecified site M19.90 ; Encounter for screening for lipid disorder Z13.220 and Other chronic pain G89.29 [facility] [address] [address] Nov, Osteoarthritis, unspecified osteoarthritis type, unspecified site M19.90 [facility] [address] [address] Nov, [facility] [address] [place] [id number] [place] [address] Nov, [facility] [address] [place] [id number] [place] [address] Oct, Osteoarthritis, unspecified osteoarthritis type, unspecified site M19.90 [place] [address] [place] [id number] [place] [address] Oct, Gastroesophageal reflux disease without esophagitis K21.9 [place] [address] [place] [id number] [place] [address] Sep, Osteoarthritis, unspecified osteoarthritis type, unspecified site M19.90 [place] [address] [place] [id number] [place] [address] August, Osteoarthritis, unspecified osteoarthritis type, unspecified site M19.90 [place] [address] [place] [id number] [place] [address] August, Osteoarthritis, unspecified osteoarthritis type, unspecified site M19.90 [place] [address] [place] [id number] [place] [address] Jul, Osteoarthritis, unspecified osteoarthritis type, unspecified site M19.90 and Gastroesophageal reflux disease without esophagitis K21.9 [place] [address] [place] [id number] [place] [address] Jul, Osteoarthritis, unspecified osteoarthritis type, unspecified site M19.90 [place] [address] [place] [address] Jun, Ventral hernia without obstruction or gangrene K43.9 [facility] [address] [place] [id number] [place] [address] Jun, Osteoarthritis, unspecified osteoarthritis type, unspecified site M19.90 [place] [address] [place] [id number] [place] [address] May, [facility] [address] [address] May, Osteoarthritis, unspecified osteoarthritis type, unspecified site M19.90 [facility] [address] [address] Apr, Osteoarthritis, unspecified osteoarthritis type, unspecified site M19.90 [facility] [address] [place] [id number] [place] [address] Mar, [facility] [address] [place] [id number] [place] [address] Mar, Osteoarthritis, unspecified osteoarthritis type, unspecified site M19.90 and Lumbago with sciatica, left side M54.42 [facility] [address] [place] [id number] [place] [address] Feb, [facility] [address] [place] [id number] [place] [address] Feb, [facility] [address] [place] [id number] [place] [address] Feb, Osteoarthritis, unspecified osteoarthritis type, unspecified site M19.90 [facility] [address] [place] [address] Feb, [facility] [address] [place] [address] Feb, Low back pain M54.5 and Other chronic pain G89.29 [facility] [address] [place] [id number] [address] Feb, [facility] [address] [place] [id number] [place] [address] Jan, [facility] [address] [place] [id number] [place] [address] Jan, [facility] [address] [place] [id number] [place] [address] Dec, Lumbago with sciatica, left side M54.42 [facility] [address] [place] [id number] [place] [address] 15 Dec, 2015 Irritable bowel syndrome with both constipation and diarrhea K58.0 ; Screening, lipid Z13.220 ; Nocturia R35.1 ; Family history of diabetes mellitus Z83.3 and Dysuria R30.0 [place] [address] [place] [id number] [place] [address] 14 Dec, 2015 Irritable bowel syndrome with both constipation and diarrhea K58.0 ; Nocturia R35.1 ; Family history of diabetes mellitus Z83.3 ; Dysuria R30.0 and Screening, lipid Z13.220 [place] [address] [place] [id number] [place] [address] Dec, [place] [address] [place] [id number] [place] [address] Dec, [facility] [address] [place] [id number] [place] [address] Dec, Pain with swallowing R13.10 [facility] [address] [place] [id number] [place] [address] Nov, [facility] [address] [place] [id number] [place] [address] Nov, [facility] [address] [place] [id number] [place] [address] Oct, [facility] [address] [place] [id number] [place] [address] Sep, [facility] [address] [address] Sep, Osteoarthritis, unspecified osteoarthritis type, unspecified site M19.90 [facility] [address] [place] [id number] [place] [address] Sep, Back pain M54.9 [facility] [address] [place] [address] [address] Sep, Lumbago with sciatica, right side M54.41 and Bilateral impacted cerumen H61.23 [facility] [address] [place] [id number] [place] [address] Sep, [facility] [address] [place] [id number] [place] [address] August, Bronchitis J40 [facility] [address] [place] [id number] [place] [address] August, [facility] [address] [place] [id number] [place] [address] August, [facility] [address] [place] [id number] [place] [address] August, [facility] [address] [place] [id number] [place] [address] Jul, [facility] [address] [place] [id number] [place] [address] Jul, Back pain M54.9 [facility] [address] [place] [id number] [place] [address] Jun, Degenerative disc disease at L5-S1 level M51.36 and Bronchitis J40 [facility] [address] [place] [id number] [place] [address] Jun, [facility] [address] [place] [id number] [place] [address] May, [facility] [address] [place] [id number] [place] [address] Apr, [facility] [address] [place] [id number] [place] [address] Mar, [facility] [address] [place] [id number] [address] Mar, [facility] [address] [address] Feb, [facility] [address] [place] [address] Jan, [facility] [address] [address] Dec, [facility] [address] [place] [id number] [place] [address] Nov, [facility] [address] [place] [id number] [place] [address] Oct, [facility] [address] [place] [id number] [place] [address] Oct, Right shoulder pain 719.41 [facility] [address] [place] [id number] [place] [address] Sep, [facility] [address] [place] [id number] [place] [address] Sep, Vertigo 780.4 and Elbow fracture, right 812.40 [facility] [address] [place] [id number] [place] [address] Sep, [facility] [address] [place] [id number] [address] August, [facility] [address] [address] Jul, [facility] [address] [place] [id number] [address] Jul, [facility] [address] [place] [address] Jun, [facility] [address] [address] Jun, [facility] [address] [address] Jun, [facility] [place] [facility] [address] [id number] [place] [address] Jun, [facility] [place] [facility] [address] [id number] [place] [address] Jun, [facility] [place] [facility] [address] [id number] [place] [address] Jun, [facility] [place] [facility] [address] [id number] [place] [address] May, [facility] [place] [facility] [address] [id number] [place] [address] May, [facility] [place] [facility] [address] [id number] [place] [address] May, [facility] [place] [facility] [address] [id number] [place] [address] May, [facility] [place] [facility] [address] [id number] [place] [address] May, [facility] [place] [facility] [address] [id number] [place] [address] May, [facility] [place] [facility] [address] [facility] [id number] [place] [address] Apr, [facility] [place] [facility] [address] [id number] [place] [address] Apr, [facility] [place] [facility] [address] [id number] [place] [address] Apr, [facility] [place] [facility] [address] [id number] [place] [address] Apr, [facility] [place] [facility] [address] [id number] [place] [address] Apr, [facility] [place] [facility] [address] [id number] [place] [address] Apr, [facility] [place] [facility] [address] [id number] [place] [address] Apr, [facility] [place] [facility] [address] [id number] [place] [address] Mar, [facility] [place] [facility] [address] [id number] [place] [address] Mar, [facility] [place] [facility] [address] [id number] [place] [address] Mar, [facility] [place] [facility] [address] [id number] [place] [address] Mar, [facility] [place] [facility] [address] [id number] [place] [address] Mar, [facility] [place] [facility] [address] [id number] [place] [address] Mar, [facility] [place] [facility] [address] [id number] [place] [address] Mar, [facility] [place] [facility] [address] [id number] [place] [address] Mar, [facility] [place] [facility] [address] [id number] [place] [address] Mar, [facility] [place] [facility] [address] [id number] [place] [address] Mar, [facility] [place] [facility] [address] [id number] [place] [address] Mar, [facility] [place] [facility] [address] [id number] [place] [address] Mar, [facility] [place] [facility] [address] [id number] [place] [address] Mar, [facility] [place] [facility] [address] [id number] [place] [address] Mar, [facility] [place] [facility] [address] [id number] [place] [address] Mar, [facility] [place] [facility] [address] [id number] [place] [address] Feb, [facility] [place] [facility] [address] [id number] [place] [address] Feb, [facility] [place] [facility] [address] [id number] [place] [address] Feb, [facility] [place] [facility] [address] [id number] [place] [address] Feb, [facility] [place] [facility] [address] [id number] [place] [address] Feb, [facility] [place] [facility] [address] [id number] [place] [address] Feb, [facility] [place] [facility] [address] [id number] [place] [address] Jan, [facility] [place] [facility] [address] [id number] [place] [address] Jan, [facility] [place] [facility] [address] [id number] [place] [address] Jan, [facility] [place] [facility] [address] [id number] [place] [address] Jan, [facility] [place] [facility] [address] [id number] [place] [address] Jan, [facility] [place] [facility] [address] [id number] [place] [address] Jan, [facility] [place] [facility] [address] [id number] [place] [address] Dec, [facility] [place] [facility] [address] [id number] [place] [address] 29 Dec, 2013 [facility] [place] [facility] [address] [id number] [place] [address] 26 Dec, 2013 [facility] [place] [facility] [address] [id number] [place] [address] 11 Dec, 2013 [facility] [place] [facility] [address] [id number] [place] [address] 11 Dec, 2013 [facility] [place] [facility] [address] [id number] [place] [address] Dec, 2013 [facility] [place] [facility] [address] [id number] [place] [address] Dec, 2013 [facility] [place] [facility] [address] [id number] [place] [address] Dec, 2013 [facility] [place] [facility] [address] [id number] [place] [address] Dec, 2013 [facility] [place] [facility] [address] [id number] [place] [address] Dec, 2013 [facility] [place] [facility] [address] [id number] [place] [address] Dec, 2013 [facility] [place] [facility] [address] [id number] [place] [address] Nov, [facility] [place] [facility] [address] [id number] [place] [address] Nov, [facility] [place] [facility] [address] [id number] [place] [address] Nov, [facility] [place] [facility] [address] [id number] [address] Nov, [facility] [place] [facility] [address] [id number] [address] Nov, [facility] [place] [facility] [address] [id number] [place] [address] Nov, [facility] [place] [facility] [address] [id number] [place] [address] Nov, [facility] [place] [facility] [address] [id number] [place] [address] Nov, [facility] [place] [facility] [address] [id number] [address] Nov, [facility] [place] [facility] [address] [id number] [place] [address] Nov, [facility] [place] [facility] [address] [id number] [place] [address] Oct, [facility] [place] [facility] [address] [id number] [place] [address] Oct, [facility] [place] [facility] [address] [id number] [place] [address] Oct, [facility] [place] [facility] [address] [id number] [place] [address] Oct, [facility] [place] [facility] [address] [id number] [place] [address] Oct, [facility] [place] [facility] [address] [id number] [place] [address] Oct, [facility] [place] [facility] [address] [id number] [place] [address] Oct, [facility] [place] [facility] [address] [id number] [place] [address] Oct, [facility] [place] [facility] [address] [id number] [place] [address] Oct, [facility] [place] [facility] [address] [id number] [place] [address] Oct, [facility] [place] [facility] [address] [id number] [place] [address] Oct, [facility] [place] [facility] [address] [id number] [place] [address] Oct, [facility] [place] [facility] [address] [id number] [place] [address] Oct, [facility] [place] [facility] [address] [id number] [place] [address] Sep, [facility] [place] [facility] [address] [id number] [place] [address] Sep, [facility] [place] [facility] [address] [id number] [place] [address] Sep, [facility] [place] [facility] [address] [id number] [place] [address] Sep, [facility] [place] [facility] [address] [id number] [place] [address] August, [facility] [place] [facility] [address] [id number] [place] [address] August, [facility] [place] [facility] [address] [id number] [place] [address] August, [facility] [place] [facility] [address] [id number] [place] [address] August, [facility] [place] [facility] [address] [id number] [place] [address] August, [facility] [place] [facility] [address] [id number] [place] [address] August, [facility] [place] [facility] [address] [id number] [place] [address] August, [facility] [place] [facility] [address] [id number] [place] [address] August, [facility] [place] [facility] [address] [id number] [place] [address] Jul, [facility] [place] [facility] [address] [id number] [place] [address] Jul, [facility] [place] [facility] [address] [id number] [place] [address] Jun, [facility] [place] [facility] [address] [id number] [place] [address] Jun, [facility] [place] [facility] [address] [id number] [place] [address] Jun, [facility] [place] [facility] [address] [id number] [place] [address] Jun, [facility] [place] [facility] [address] [id number] [place] [address] Jun, [facility] [place] [facility] [address] [id number] [place] [address] Jun, [facility] [place] [facility] [address] [id number] [place] [address] May, [facility] [place] [facility] [address] [id number] [place] [address] May, [facility] [place] [facility] [address] [id number] [place] [address] May, [facility] [place] [facility] [address] [id number] [place] [address] May, [facility] [place] [facility] [address] [id number] [place] [address] May, [facility] [place] [facility] [address] [id number] [place] [address] 07 May, 2013 [facility] [place] [facility] [address] [id number] [place] [address] Apr, [facility] [place] [facility] [address] [id number] [place] [address] Apr, [facility] [place] [facility] [address] [id number] [place] [address] Feb, [facility] [place] [facility] [address] [id number] [place] [address] Feb, [facility] [place] [facility] [address] [id number] [place] [address] 15 Feb, 2013 [facility] [place] [facility] [address] [id number] [place] [address] 15 Feb, 2013 [facility] [place] [facility] [address] [id number] [place] [address] 13 Feb, 2013 [facility] [place] [facility] [address] [id number] [place] [address] 13 Feb, 2013 [facility] [place] [facility] [address] [id number] [place] [address] Feb, [facility] [place] [facility] [address] [id number] [place] [address] Feb, [facility] [place] [facility] [address] [id number] [place] [address] 08 Feb, 2013 [facility] [place] [facility] [address] [id number] [place] [address] Jan, [facility] [place] [facility] [address] [id number] [place] [address] Jan, [facility] [place] [facility] [address] [id number] [place] [address] Jan, [facility] [place] [facility] [address] [address] [id number] [place] [address] Jan, [facility] [place] [facility] [address] [id number] [place] [address] Jan, [facility] [place] [facility] [address] [id number] [place] [address] Jan, [facility] [place] [facility] [address] [id number] [place] [address] 17 Dec, 2012 [facility] [place] [facility] [address] [id number] [place] [address] 12 Dec, 2012 [facility] [place] [facility] [address] [id number] [place] [address] 05 Dec, 2012 [facility] [place] [facility] [address] [id number] [place] [address] 05 Dec, 2012 [facility] [place] [facility] [address] [id number] [place] [address] Oct, [facility] [address] [id number] [place] [address] Oct, [facility] [address] [id number] [place] [address] Oct, [facility] [address] [id number] [place] [address] Oct, [facility] [address] [id number] [place] [address] Oct, [facility] [address] [id number] [place] [address] Sep, [facility] [address] [id number] [place] [address] August, [facility] [address] [id number] [place] [address] August, [facility] [address] [id number] [place] [address] August, [facility] [address] [id number] [place] [address] August, [facility] [address] [id number] [place] [address] August, [facility] [address] [id number] [place] [address] August, [facility] [place] [facility] [address] [id number] [place] [address] August, [facility] [place] [facility] [address] [id number] [place] [address] August, [facility] [place] [facility] [address] [id number] [place] [address] August, [facility] [place] [facility] [address] [id number] [place] [address] August, [facility] [place] [facility] [address] [id number] [place] [address] August, [facility] [address] [id number] [place] [address] August, [facility] [place] [facility] [address] [id number] [place] [address] Jun, [facility] [address] [id number] [place] [address] Jun, [facility] [place] [facility] [address] [id number] [place] [address] Jun, [facility] [place] [facility] [address] [id number] [place] [address] May, [facility] [place] [facility] [address] [id number] [place] [address] May, [facility] [address] [id number] [place] [address] Mar, [facility] [place] [facility] [address] [id number] [place] [address] Mar, [facility] [place] [facility] [address] [id number] [place] [address] Feb, [facility] [place] [facility] [address] [id number] [place] [address] Feb, [facility] [place] [facility] [address] [id number] [place] [address] Feb, [facility] [place] [facility] [address] [id number] [place] [address] Feb, [facility] [place] [facility] [address] [id number] [place] [address] Dec, [facility] [place] [facility] [address] [id number] [place] [address] August, [facility] [place] [facility] [address] [id number] [place] [address] Jul, [facility] [place] [facility] [address] [id number] [place] [address] 05 Jul, 2011 [facility] [place] [facility] [address] [id number] [place] [address] Jun, [facility] [place] [facility] [address] [id number] [place] [address] 13 Jun, 2011 [facility] [place] [facility] [address] [id number] [place] [address] Jun, [facility] [place] [facility] [address] [id number] [place] [address] Jun, [facility] [place] [facility] [address] [id number] [place] [address] Jun, [facility] [place] [facility] [address] [facility] [id number] [place] [address] May, [facility] [place] [facility] [address] [id number] [place] [address] May, [facility] [place] [facility] [address] [id number] [place] [address] May, [facility] [place] [facility] [address] [facility] [id number] [place] [address] May, [facility] [place] [facility] [address] [id number] [place] [address] Apr, [facility] [place] [facility] [address] [id number] [place] [address] Apr, [facility] [place] [facility] [address] [id number] [place] [address] Apr, [facility] [place] [facility] [address] [id number] [place] [address] Mar, [facility] [place] [facility] [address] [facility] [id number] [place] [address] Mar, [facility] [place] [facility] [address] [id number] [place] [address] Mar, [facility] [address] [facility] [id number] [place] [address] Mar, [facility] [address] [facility] [id number] [place] [address] May, [facility] [address] [facility] [id number] [place] [address] Feb, [facility] [address] [facility] [id number] [address] Feb, [facility] [address] [facility] [id number] [address] Jan, [facility] [address] [facility] [id number] [place] [address] Jan, IMMUNIZATIONS No Known Immunizations SOCIAL HISTORY Never Assessed REASON FOR VISIT Medication Change per Insurance PLAN OF CARE VITAL SIGNS MEDICATIONS Unknown [...]
--- OUTSIDE RECORDS SUMMARY | 2018-09-19 01:35 | XMS REPORT ---
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 Active 273618865 Problem 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 Active 759100733 Problem Other chronic pain G89.29 Active 17594308 Problem Osteoarthritis, unspecified osteoarthritis type, unspecified site M19.90 Active 755068374 ALLERGIES No Information ENCOUNTERS Encounter Location Date Diagnosis [place] [id number] [place] [address] August, [place] [id number] [place] [address] Jul, Osteoarthritis, unspecified osteoarthritis type, unspecified site M19.90 [place] [id number] [place] [address] Jun, Osteoarthritis, unspecified osteoarthritis type, unspecified site M19.90 [place] [id number] [place] [address] Jun, [place] [id number] [place] [address] Jun, Osteoarthritis, unspecified osteoarthritis type, unspecified site M19.90 [place] [id number] [place] [address] May, [place] [id number] [place] [address] May, Benign prostatic hyperplasia, unspecified whether lower urinary tract symptoms present N40.0 [place] [id number] [place] [address] May, Osteoarthritis, unspecified osteoarthritis type, unspecified site M19.90 [place] [id number] [place] [address] May, [place] [id number] [place] [address] Apr, Other chronic pain G89.29 ; Family history of diabetes mellitus Z83.3 ; Forgetfulness R68.89 ; History of multiple concussions Z87.820 ; Gastroesophageal reflux disease without esophagitis K21.9 and Screening, lipid Z13.220 [place] [id number] [place] [address] Apr, Other chronic pain G89.29 ; Forgetfulness R68.89 ; History of multiple concussions Z87.820 ; Gastroesophageal reflux disease without esophagitis K21.9 ; Screening, lipid Z13.220 and Family history of diabetes mellitus Z83.3 [place] [id number] [place] [address] Apr, Osteoarthritis, unspecified osteoarthritis type, unspecified site M19.90 [place] [id number] [place] [address] Apr, Osteoarthritis, unspecified osteoarthritis type, unspecified site M19.90 [place] [id number] [place] [address] Apr, [place] [id number] [place] [address] Mar, Osteoarthritis, unspecified osteoarthritis type, unspecified site M19.90 [place] [id number] [place] [address] Feb, Osteoarthritis, unspecified osteoarthritis type, unspecified site M19.90 [facility] [place] [facility] [id number] [place] [address] Jan, Osteoarthritis, unspecified osteoarthritis type, unspecified site M19.90 [facility] [place] [facility] [address] [address] Dec, Osteoarthritis, unspecified osteoarthritis type, unspecified site M19.90 [facility] [place] [facility] [id number] [place] [address] Dec, [facility] [place] [facility] [id number] [place] [address] Nov, Encounter for screening for lipid disorder Z13.220 [place] [id number] [place] [address] Nov, Osteoarthritis, unspecified osteoarthritis type, unspecified site M19.90 ; Encounter for screening for lipid disorder Z13.220 and Other chronic pain G89.29 [facility] [facility] [id number] [place] [address] Nov, Osteoarthritis, unspecified osteoarthritis type, unspecified site M19.90 [facility] [place] [facility] [address] [address] Nov, [facility] [place] [facility] [address] [address] Nov, [facility] [place] [facility] [id number] [place] [address] Oct, Osteoarthritis, unspecified osteoarthritis type, unspecified site M19.90 [facility] [place] [facility] [id number] [place] [address] Oct, Gastroesophageal reflux disease without esophagitis K21.9 [facility] [place] [facility] [address] [address] Sep, Osteoarthritis, unspecified osteoarthritis type, unspecified site M19.90 [place] [id number] [place] [address] August, Osteoarthritis, unspecified osteoarthritis type, unspecified site M19.90 [place] [id number] [place] [address] August, Osteoarthritis, unspecified osteoarthritis type, unspecified site M19.90 [place] [id number] [place] [address] Jul, Osteoarthritis, unspecified osteoarthritis type, unspecified site M19.90 and Gastroesophageal reflux disease without esophagitis K21.9 [place] [id number] [place] [address] Jul, Osteoarthritis, unspecified osteoarthritis type, unspecified site M19.90 [place] [id number] [place] [address] Jun, Ventral hernia without obstruction or gangrene K43.9 [place] [id number] [place] [address] Jun, Osteoarthritis, unspecified osteoarthritis type, unspecified site M19.90 [place] [id number] [place] [address] May, [place] [id number] [place] [address] May, Osteoarthritis, unspecified osteoarthritis type, unspecified site M19.90 [place] [id number] [place] [address] Apr, Osteoarthritis, unspecified osteoarthritis type, unspecified site M19.90 [place] [id number] [place] [address] Mar, [place] [id number] [place] [address] Mar, Osteoarthritis, unspecified osteoarthritis type, unspecified site M19.90 and Lumbago with sciatica, left side M54.42 [facility] [facility] [id number] [place] [address] Feb, [facility] [facility] [id number] [place] [address] Feb, [facility] [id number] [place] [address] Feb, Osteoarthritis, unspecified osteoarthritis type, unspecified site M19.90 [facility] [facility] [id number] [place] [address] Feb, [facility] [id number] [place] [address] Feb, Low back pain M54.5 and Other chronic pain G89.29 [place] [address] [address] Feb, [facility] [id number] [place] [address] Jan, [facility] [facility] [id number] [place] [address] 05 Jan, 2016 [facility] [id number] [place] [address] 24 Dec, 2015 Lumbago with sciatica, left side M54.42 [place] [id number] [place] [address] 15 Dec, 2015 Irritable bowel syndrome with both constipation and diarrhea K58.0 ; Screening, lipid Z13.220 ; Nocturia R35.1 ; Family history of diabetes mellitus Z83.3 and Dysuria R30.0 [place] [id number] [place] [address] 14 Dec, 2015 Irritable bowel syndrome with both constipation and diarrhea K58.0 ; Nocturia R35.1 ; Family history of diabetes mellitus Z83.3 ; Dysuria R30.0 and Screening, lipid Z13.220 [place] [address] [place] [address] 12 Dec, 2015 [facility] [id number] [place] [address] 07 Dec, 2015 [facility] [id number] [place] [address] 2015 Pain with swallowing R13.10 [facility] [id number] [place] [address] Nov, [facility] [id number] [place] [address] Nov, [facility] [facility] [id number] [place] [address] Oct, [facility] [facility] [id number] [place] [address] Sep, [facility] [id number] [place] [address] Sep, Osteoarthritis, unspecified osteoarthritis type, unspecified site M19.90 [facility] [id number] [place] [address] Sep, Back pain M54.9 [facility] [id number] [place] [address] 07 Sep, 2015 Lumbago with sciatica, right side M54.41 and Bilateral impacted cerumen H61.23 [facility] [id number] [place] [address] Sep, [facility] [id number] [place] [address] August, Bronchitis J40 [facility] [id number] [place] [address] August, [facility] [id number] [address] August, [facility] [id number] [place] [address] August, [facility] [id number] [place] [address] Jul, [facility] [id number] [place] [address] Jul, Back pain M54.9 [facility] [id number] [place] [address] Jun, Degenerative disc disease at L5-S1 level M51.36 and Bronchitis J40 [facility] [id number] [place] [address] Jun, [facility] [id number] [place] [address] May, [facility] [id number] [place] [address] Apr, [facility] [id number] [place] [address] Mar, [facility] [id number] [place] [address] Mar, [facility] [id number] [place] [address] Feb, [facility] [id number] [place] [address] Jan, [facility] [id number] [address] Dec, [facility] [id number] [place] [address] Nov, [facility] [id number] [place] [address] Oct, [facility] [facility] [address], [place] [address] Oct, Right shoulder pain 719.41 [facility] [address] [facility] [id number] [address] Sep, [facility] [id number] [place] [address] Sep, Vertigo 780.4 and Elbow fracture, right 812.40 [facility] [id number] [address] Sep, [facility] [id number] [place] [address] August, [facility] [id number] [place] [address], [place] [address] Jul, [facility] [id number] [place] [address] Jul, [facility] [id number] [place] [address] Jun, [facility] [address], [place] [address] Jun, [facility] [address] [address] Jun, [facility] [address], [place] [address] Jun, [facility] [facility] [address], [place] [address] Jun, [facility] [address], [place] [address] Jun, [facility] [id number], [place] [address] May, [facility] [address], [place] [address] May, [facility] [address], [place] [address] May, [facility] [place] [facility] [address] [id number] [place] [address] May, [facility] [place] [facility] [address] [id number] [place] [address] May, [facility] [place] [facility] [address] [id number] [place] [address] May, [facility] [place] [facility] [address] [id number] [place] [address] Apr, [facility] [place] [facility] [address] [id number] [place] [address] Apr, [facility] [place] [facility] [address] [id number] [place] [address] Apr, [facility] [place] [facility] [address] [id number] [place] [address] Apr, [facility] [place] [facility] [address] [id number] [place] [address] Apr, [facility] [place] [facility] [address] [id number] [place] [address] Apr, [facility] [place] [facility] [address] [id number] [place] [address] Apr, [facility] [place] [facility] [address] [id number] [place] [address] Mar, [facility] [place] [facility] [address] [id number] [place] [address] Mar, [facility] [place] [facility] [address] [id number] [place] [address] Mar, [facility] [place] [facility] [address] [id number] [place] [address] Mar, [facility] [place] [facility] [address] [id number] [place] [address] Mar, [facility] [place] [facility] [address] [id number] [place] [address] Mar, [facility] [place] [facility] [address] [id number] [place] [address] Mar, [facility] [place] [facility] [address] [id number] [place] [address] Mar, [facility] [place] [facility] [address] [id number] [place] [address] Mar, [facility] [place] [facility] [address] [id number] [place] [address] Mar, [facility] [place] [facility] [address] [id number] [place] [address] Mar, [facility] [place] [facility] [address] [id number] [place] [address] Mar, [facility] [place] [facility] [address] [id number] [place] [address] Mar, [facility] [place] [facility] [address] [id number] [place] [address] Mar, [facility] [place] [facility] [address] [id number] [place] [address] Mar, [facility] [place] [facility] [address] [id number] [place] [address] Feb, [facility] [place] [facility] [address] [id number] [place] [address] Feb, [facility] [place] [facility] [address] [id number] [place] [address] Feb, [facility] [place] [facility] [address] [id number] [place] [address] Feb, [facility] [place] [facility] [address] [id number] [place] [address] Feb, [facility] [place] [facility] [address] [id number] [place] [address] Feb, [facility] [place] [facility] [address] [id number] [place] [address] Jan, 2013 [facility] [place] [facility] [address] [id number] [place] [address] Jan, [facility] [place] [facility] [address] [id number] [place] [address] Jan, 2013 [facility] [place] [facility] [address] [id number] [place] [address] 08 Jan, 2013 [facility] [place] [facility] [address] [id number] [place] [address] Jan, 2013 [facility] [place] [facility] [address] [id number] [place] [address] Jan, 2013 [facility] [place] [facility] [address] [id number] [place] [address] 29 Dec, 2013 [facility] [place] [facility] [address] [id number] [place] [address] 29 Sep, 2013 [facility] [place] [facility] [address] [id number] [place] [address] 26 Sep, 2013 [facility] [place] [facility] [address] [id number] [place] [address] 11 Sep, 2013 [facility] [place] [facility] [address] [id number] [place] [address] 11 Sep, 2013 [facility] [place] [facility] [address] [id number] [place] [address] 08 Sep, 2013 [facility] [place] [facility] [address] [id number] [place] [address] 08 Sep, 2013 [facility] [place] [facility] [address] [id number] [place] [address] 08 Sep, 2013 [facility] [place] [facility] [address] [id number] [place] [address] 08 Sep, 2013 [facility] [place] [facility] [address] [id number] [place] [address] Dec, [facility] [place] [facility] [address] [id number] [place] [address] Dec, [facility] [place] [facility] [address] [id number] [place] [address] Nov, [facility] [place] [facility] [address] [id number] [place] [address] Nov, [facility] [place] [facility] [address] [id number] [place] [address] Nov, [facility] [place] [facility] [address] [id number] [place] [address] Nov, [facility] [place] [facility] [address] [id number] [place] [address] Nov, [facility] [place] [facility] [address] [id number] [place] [address] Nov, [facility] [place] [facility] [address] [id number] [place] [address] Nov, [facility] [place] [facility] [address] [id number] [place] [address] Nov, [facility] [place] [facility] [address] [id number] [place] [address] Nov, [facility] [place] [facility] [address] [id number] [place] [address] Nov, [facility] [place] [facility] [address] [id number] [place] [address] Oct, [facility] [place] [facility] [address] [id number] [place] [address] Oct, [facility] [place] [facility] [address] [id number] [place] [address] Oct, [facility] [place] [facility] [address] [id number] [place] [address] Oct, [facility] [place] [facility] [address] [id number] [place] [address] Oct, [facility] [place] [facility] [address] [id number] [place] [address] Oct, [facility] [place] [facility] [address] [id number] [place] [address] Oct, [facility] [place] [facility] [address] [id number] [place] [address] Oct, [facility] [place] [facility] [address] [id number] [place] [address] Oct, [facility] [place] [facility] [address] [id number] [place] [address] Oct, [facility] [place] [facility] [address] [id number] [place] [address] Oct, [facility] [place] [facility] [address] [id number] [place] [address] Oct, [facility] [place] [facility] [address] [id number] [place] [address] Oct, [facility] [place] [facility] [address] [id number] [place] [address] Sep, [facility] [place] [facility] [address] [id number] [place] [address] Sep, [facility] [place] [facility] [address] [id number] [place] [address] Sep, [facility] [place] [facility] [address] [id number] [place] [address] Sep, [facility] [place] [facility] [address] [id number] [place] [address] August, [facility] [place] [facility] [address] [id number] [place] [address] August, [facility] [place] [facility] [address] [id number] [place] [address] August, [facility] [place] [facility] [address] [id number] [place] [address] August, [facility] [place] [facility] [address] [id number] [place] [address] August, [facility] [place] [facility] [address] [id number] [place] [address] August, [facility] [place] [facility] [address] [id number] [place] [address] August, [facility] [place] [facility] [address] [id number] [place] [address] August, [facility] [place] [facility] [address] [id number] [place] [address] Jul, [facility] [place] [facility] [address] [id number] [place] [address] Jul, [facility] [place] [facility] [address] [id number] [place] [address] Jun, [facility] [place] [facility] [address] [id number] [place] [address] Jun, [facility] [place] [facility] [address] [id number] [place] [address] Jun, [facility] [place] [facility] [address] [id number] [place] [address] Jun, [facility] [place] [facility] [address] [id number] [place] [address] Jun, [facility] [place] [facility] [address] [id number] [place] [address] Jun, [facility] [place] [facility] [address] [id number] [place] [address] May, [facility] [place] [facility] [address] [id number] [place] [address] May, [facility] [place] [facility] [address] [id number] [place] [address] 14 May, 2013 [facility] [place] [facility] [address] [id number] [place] [address] 14 May, 2013 [facility] [place] [facility] [address] [id number], [place] [address] 07 May, 2013 [facility] [place] [facility] [address] [facility] [id number] [place] [address] May, [facility] [place] [facility] [address] [id number] [place] [address] Apr, [facility] [place] [facility] [address] [id number] [place] [address] Apr, [facility] [place] [facility] [address] [id number] [place] [address] 15 Feb, 2013 [facility] [place] [facility] [address] [facility] [id number], [place] [address] 15 Feb, 2013 [facility] [place] [facility] [address] [facility] [id number], [place] [address] 15 Feb, 2013 [facility] [place] [facility] [address] [facility] [id number], [place] [address] 15 Feb, 2013 [facility] [place] [facility] [address] [facility] [id number], [place] [address] Feb, [facility] [place] [facility] [address] [facility] [id number], [place] [address] 13 Feb, 2013 [facility] [place] [facility] [address] [id number], [place] [address] 11 Feb, 2013 [facility] [place] [facility] [address] [id number], [place] [address] 11 Feb, 2013 [facility] [place] [facility] [address] [facility] [id number], [place] [address] 08 Feb, 2013 [facility] [place] [facility] [address] [facility] [id number], [place] [address] 27 Jan, 2013 [facility] [place] [facility] [address] [id number] [place] [address] 27 Jan, 2012 [facility] [place] [facility] [address] [id number] [place] [address] Jan, [facility] [place] [facility] [address] [id number] [place] [address] Jan, [facility] [place] [facility] [address] [id number] [place] [address] Jan, [facility] [place] [facility] [address] [id number] [place] [address] Jan, [facility] [place] [facility] [address] [id number] [place] [address] 17 Dec, 2012 [facility] [place] [facility] [address] [id number] [place] [address] Dec, [facility] [place] [facility] [address] [id number] [place] [address] Dec, 2012 [facility] [place] [facility] [address] [id number] [place] [address] Dec, [facility] [place] [facility] [address] [id number] [place] [address] Oct, [facility] [place] [facility] [address] [id number] [place] [address] Oct, [facility] [place] [facility] [address] [id number] [place] [address] Oct, [facility] [place] [facility] [address] [id number] [place] [address] Oct, [facility] [place] [facility] [address] [id number] [place] [address] Oct, [facility] [place] [facility] [address] [id number] [place] [address] Sep, [facility] [place] [facility] [address] [id number] [place] [address] August, [facility] [address] [id number] [place] [address] August, [facility] [address] [id number] [place] [address] August, [facility] [address] [id number] [place] [address] August, [facility] [address] [id number] [place] [address] August, [facility] [address] [id number] [place] [address] August, [facility] [address] [id number] [place] [address] August, [facility] [address] [id number] [place] [address] August, [facility] [address] [id number] [place] [address] August, [facility] [address] [id number] [place] [address] August, [facility] [address] [id number] [place] [address] August[facility] [address] [id number] [place] [address] August, [facility] [place] [facility] [address] [id number] [place] [address] Jun, [facility] [place] [facility] [address] [id number] [place] [address] Jun, [facility] [place] [facility] [address] [id number] [place] [address] Jun, [facility] [place] [facility] [address] [id number] [place] [address] May, [facility] [place] [facility] [address] [id number] [place] [address] May, [facility] [address] [id number] [place] [address] Mar, [facility] [place] [facility] [address] [id number] [place] [address] Mar, [facility] [address] [id number] [place] [address] Feb, [facility] [place] [facility] [address] [id number] [place] [address] Feb, [facility] [address] [id number] [place] [address] Feb, [facility] [address] [id number] [place] [address] Feb, [facility] [address] [id number] [place] [address] Dec, [facility] [address] [id number] [place] [address] August, [facility] [address] [id number] [place] [address] Jul, [facility] [address] [id number] [place] [address] 05 Jul, 2011 [facility] [address] [id number] [place] [address] Jun, [facility] [place] [facility] [address] [id number] [place] [address] Jun, [facility] [place] [facility] [address] [id number] [place] [address] 09 Jun, 2011 [facility] [place] [facility] [address] [id number] [place] [address] 06 Jun, 2011 [facility] [place] [facility] [address] [id number] [place] [address] Jun, [facility] [place] [facility] [address] [id number] [place] [address] May, [facility] [place] [facility] [address] [id number] [place] [address] May, [facility] [place] [facility] [address] [id number] [place] [address] May, [facility] [place] [facility] [address] [id number] [place] [address] May, [facility] [place] [facility] [address] [id number] [place] [address] Apr, [facility] [place] [facility] [address] [id number] [place] [address] Apr, [facility] [place] [facility] [address] [id number] [place] [address] Apr, [facility] [place] [facility] [address] [id number] [place] [address] Mar, [facility] [place] [facility] [address] [id number] [place] [address] Mar, [facility] [place] [facility] [address] [id number] [place] [address] Mar, [facility] [place] [facility] [address] [id number] [place] [address] Mar, [facility] [place] [facility] [address] [id number], [place] [address] May, [facility] [place] [facility] [address] [id number] [place] [address] Feb, [facility] [place] [facility] [address] [id number] [place] [address] Feb, [facility] [place] [facility] [address] [id number] [place] [address] Jan, [facility] [place] [facility] [address] [facility] [id number] [place] [address] 15 Jan, 2008 IMMUNIZATIONS No Known Immunizations SOCIAL HISTORY Never Assessed REASON FOR VISIT Controlled Med Refill 02/11/2017 PLAN OF CARE VITAL SIGNS MEDICATIONS Medication Instructions Dosage Frequency Start Date End Date Duration Status Xanax 1 MG Orally Twice a day 1 tablet 12h 25 Jun, 2014 28 days Active Oxycodone HCl 10 MG Orally Once a day 1 tablet 24h 16 Jan, 2017 28 days Active RESULTS No Results [...]
--- OUTSIDE RECORDS SUMMARY | 2018-09-19 01:35 | XMS REPORT ---
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 Active 641482364 Problem 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 Active 832841644 Problem Other chronic pain G89.29 Active 75589829 Problem Osteoarthritis, unspecified osteoarthritis type, unspecified site M19.90 Active 394213449 ALLERGIES No Information ENCOUNTERS Encounter Location Date Diagnosis [place] [address] [address] Sep, [place] [address] [address] Sep, Osteoarthritis, unspecified osteoarthritis type, unspecified site M19.90 [place] [address] [place] [id number] [place] [address] August, Other chronic pain G89.29 and Other specified personal risk factors, not elsewhere classified Z91.89 [place] [address] [address] August, Osteoarthritis, unspecified osteoarthritis type, unspecified site M19.90 [place] [address] [address] Jul, Osteoarthritis, unspecified osteoarthritis type, unspecified site M19.90 [place] [address], [place] [address] Jun, Osteoarthritis, unspecified osteoarthritis type, unspecified site M19.90 [place] [address] [place] [id number] [address] Jun, [place] [address] [place] [id number] [place] [address] Jun, Osteoarthritis, unspecified osteoarthritis type, unspecified site M19.90 [place] [address] [place] [id number] [place] [address] May, [place] [address] [place] [id number] [place] [address] May, Benign prostatic hyperplasia, unspecified whether lower urinary tract symptoms present N40.0 [place] [address] [place] [id number] [place] [address] May, Osteoarthritis, unspecified osteoarthritis type, unspecified site M19.90 [place] [address], [place] [address] May, [place] [address] [place] [id number] [place] [address] Apr, Other chronic pain G89.29 ; Family history of diabetes mellitus Z83.3 ; Forgetfulness R68.89 ; History of multiple concussions Z87.820 ; Gastroesophageal reflux disease without esophagitis K21.9 and Screening, lipid Z13.220 [place] [address] [address] Apr, Other chronic pain G89.29 ; Forgetfulness R68.89 ; History of multiple concussions Z87.820 ; Gastroesophageal reflux disease without esophagitis K21.9 ; Screening, lipid Z13.220 and Family history of diabetes mellitus Z83.3 [place] [address] [address] Apr, Osteoarthritis, unspecified osteoarthritis type, unspecified site M19.90 [place] [address], [place] [address] Apr, Osteoarthritis, unspecified osteoarthritis type, unspecified site M19.90 [facility] [address], [place] [address] Apr, [facility] [address], [place] [address] Mar, Osteoarthritis, unspecified osteoarthritis type, unspecified site M19.90 [facility] [address], [place] [address] Feb, Osteoarthritis, unspecified osteoarthritis type, unspecified site M19.90 [facility] [address], [place] [address] Jan, Osteoarthritis, unspecified osteoarthritis type, unspecified site M19.90 [place] [address], [place] [address] Dec, Osteoarthritis, unspecified osteoarthritis type, unspecified site M19.90 [facility] [address], [place] [address] Dec, [facility] [address], [place] [address] Nov, Encounter for screening for lipid disorder Z13.220 [facility] [address], [place] [address] Nov, Osteoarthritis, unspecified osteoarthritis type, unspecified site M19.90 ; Encounter for screening for lipid disorder Z13.220 and Other chronic pain G89.29 [facility] [address], [place] [address] Nov, Osteoarthritis, unspecified osteoarthritis type, unspecified site M19.90 [facility] [address], [place] [address] Nov, [facility] [address], [place] [address] Nov, [facility] [address], [place] [address] Oct, Osteoarthritis, unspecified osteoarthritis type, unspecified site M19.90 [facility] [address] [place] [id number] [place] [address] Oct, Gastroesophageal reflux disease without esophagitis K21.9 [facility] [address] [place] [id number] [place] [address] Sep, Osteoarthritis, unspecified osteoarthritis type, unspecified site M19.90 [place] [address] [place] [id number] [place] [address] August, Osteoarthritis, unspecified osteoarthritis type, unspecified site M19.90 [place] [address] [place] [id number] [place] [address] August, Osteoarthritis, unspecified osteoarthritis type, unspecified site M19.90 [place] [address] [place] [id number] [place] [address] Jul, Osteoarthritis, unspecified osteoarthritis type, unspecified site M19.90 and Gastroesophageal reflux disease without esophagitis K21.9 [place] [address] [place] [id number] [place] [address] Jul, Osteoarthritis, unspecified osteoarthritis type, unspecified site M19.90 [place] [address] [place] [id number] [place] [address] Jun, Ventral hernia without obstruction or gangrene K43.9 [facility] [address] [place] [address] [address] Jun, Osteoarthritis, unspecified osteoarthritis type, unspecified site M19.90 [facility] [address] [place] [address] May, [facility] [address] [place] [id number] [address] May, Osteoarthritis, unspecified osteoarthritis type, unspecified site M19.90 [facility] [address], [place] [address] Apr, Osteoarthritis, unspecified osteoarthritis type, unspecified site M19.90 [facility] [address] [place] [address] Mar, [facility] [address] [place] [id number] [place] [address] Mar, Osteoarthritis, unspecified osteoarthritis type, unspecified site M19.90 and Lumbago with sciatica, left side M54.42 [facility] [address] [place] [id number] [place] [address] Feb, [facility] [address] [place] [id number] [place] [address] Feb, [facility] [address] [place] [id number] [place] [address] Feb, Osteoarthritis, unspecified osteoarthritis type, unspecified site M19.90 [facility] [address] [place] [id number] [place] [address] Feb, [facility] [address] [place] [id number] [place] [address] Feb, Low back pain M54.5 and Other chronic pain G89.29 [facility] [address] [place] [id number] [place] [address] Feb, [facility] [address] [place] [id number] [place] [address] Jan, [facility] [address] [place] [id number] [place] [address] Jan, [facility] [address] [place] [id number] [place] [address] Dec, Lumbago with sciatica, left side M54.42 [facility] [address] [place] [id number] [place] [address] 15 Dec, 2015 Irritable bowel syndrome with both constipation and diarrhea K58.0 ; Screening, lipid Z13.220 ; Nocturia R35.1 ; Family history of diabetes mellitus Z83.3 and Dysuria R30.0 [facility] [address] [place] [id number] [place] [address] 14 Dec, 2015 Irritable bowel syndrome with both constipation and diarrhea K58.0 ; Nocturia R35.1 ; Family history of diabetes mellitus Z83.3 ; Dysuria R30.0 and Screening, lipid Z13.220 [facility] [address] [place] [id number] [place] [address] 12 Dec, 2015 [place] [address] [place] [id number] [place] [address] 07 Dec, 2015 [facility] [address] [place] [id number] [place] [address] Dec, Pain with swallowing R13.10 [place] [address] [place] [id number] [place] [address] Nov, [place] [address] [place] [id number] [place] [address] Nov, [place] [address] [place] [id number] [place] [address] Oct, [place] [address] [place] [id number] [place] [address] Sep, [facility] [address] [place] [id number] [place] [address] Sep, Osteoarthritis, unspecified osteoarthritis type, unspecified site M19.90 [place] [address] [place] [id number] [place] [address] Sep, Back pain M54.9 [place] [address] [place] [id number] [place] [address] 07 Sep, 2015 Lumbago with sciatica, right side M54.41 and Bilateral impacted cerumen H61.23 [facility] [address], [place] [address] Sep, [facility] [address] [place] [id number] [place] [address] August, Bronchitis J40 [facility] [address] [place] [id number] [place] [address] August, [facility] [address] [place] [id number] [place] [address] August, [facility] [address] [place] [id number] [place] [address] August, [facility] [address] [place] [id number] [place] [address] Jul, [facility] [address] [place] [id number] [place] [address] Jul, Back pain M54.9 [facility] [address] [place] [id number] [place] [address] Jun, Degenerative disc disease at L5-S1 level M51.36 and Bronchitis J40 [facility] [address] [place] [id number] [place] [address] Jun, [facility] [address] [place] [address] May, [facility] [address] [place] [address] Apr, [facility] [address] [place] [address] Mar, [facility] [address] [place] [id number] [place] [address] Mar, [facility] [address] [place] [address] Feb, [facility] [address] [place] [id number] [place] [address] Jan, [facility] [address] [place] [id number] [address] Dec, [facility] [address] [place] [id number] [place] [address] Nov, [facility] [address] [place] [id number] [place] [address] Oct, [facility] [address] [place] [id number] [place] [address] Oct, Right shoulder pain 719.41 [facility] [address] [place] [id number] [place] [address] Sep, [facility] [address] [place] [id number] [place] [address] Sep, Vertigo 780.4 and Elbow fracture, right 812.40 [facility] [address] [place] [id number] [place] [address] Sep, [facility] [address] [place] [id number] [place] [address] August, [facility] [address] [place] [id number] [place] [address] Jul, [facility] [address], [place] [address] Jul, [facility] [address] [place] [address] Jun, [facility] [address] [place] [id number] [address] Jun, [facility] [address] [place] [id number] [place] [address] Jun, [facility] [address], [place] [address] Jun, [facility] [address] [place] [id number] [place] [address] Jun, [facility] [place] [facility] [address] [id number] [place] [address] Jun, [facility] [place] [facility] [address] [id number] [place] [address] May, [facility] [place] [facility] [address] [id number] [place] [address] May, [facility] [place] [facility] [address] [id number] [place] [address] May, [facility] [place] [facility] [address] [id number] [place] [address] May, [facility] [place] [facility] [address] [facility] [id number] [place] [address] May, [facility] [place] [facility] [address] [facility] [id number] [place] [address] May, [facility] [place] [facility] [address] [facility] [id number] [place] [address] Apr, [facility] [place] [facility] [address] [facility] [id number] [place] [address] Apr, [facility] [place] [facility] [address] [facility] [id number] [place] [address] Apr, [facility] [place] [facility] [address] [facility] [id number] [place] [address] Apr, [facility] [place] [facility] [address] [facility] [id number] [place] [address] Apr, [facility] [place] [facility] [address] [id number] [place] [address] Apr, [facility] [place] [facility] [address] [facility] [id number] [place] [address] Apr, [facility] [place] [facility] [address] [facility] [id number] [place] [address] Mar, [facility] [place] [facility] [address] [id number] [place] [address] Mar, [facility] [place] [facility] [address] [id number] [place] [address] Mar, [facility] [place] [facility] [address] [id number] [place] [address] Mar, [facility] [place] [facility] [address] [id number] [place] [address] Mar, [facility] [place] [facility] [address] [id number] [place] [address] Mar, [facility] [place] [facility] [address] [id number] [place] [address] Mar, [facility] [place] [facility] [address] [id number] [place] [address] Mar, [facility] [place] [facility] [address] [id number] [place] [address] Mar, [facility] [place] [facility] [address] [id number] [place] [address] Mar, [facility] [place] [facility] [address] [id number] [place] [address] Mar, [facility] [place] [facility] [address] [id number] [place] [address] Mar, [facility] [place] [facility] [address] [id number] [place] [address] Mar, [facility] [place] [facility] [address] [id number] [place] [address] Mar, [facility] [place] [facility] [address] [id number] [place] [address] Mar, [facility] [place] [facility] [address] [id number] [place] [address] Feb, [facility] [place] [facility] [address] [id number] [place] [address] Feb, [facility] [place] [facility] [address] [id number] [place] [address] Feb, [facility] [place] [facility] [address] [id number] [place] [address] Feb, [facility] [place] [facility] [address] [facility] [id number] [place] [address] Feb, [facility] [place] [facility] [address] [id number] [place] [address] Feb, [facility] [place] [facility] [address] [id number] [place] [address] Jan, [facility] [place] [facility] [address] [id number] [place] [address] Jan, [facility] [place] [facility] [address] [id number] [place] [address] Jan, [facility] [place] [facility] [address] [id number] [place] [address] Jan, [facility] [place] [facility] [address] [id number] [place] [address] Jan, [facility] [place] [facility] [address] [id number] [place] [address] Jan, [facility] [place] [facility] [address] [id number] [address] 29 Dec, 2013 [facility] [place] [facility] [address] [id number] [address] 29 Dec, 2013 [facility] [place] [facility] [address] [id number] [place] [address] 26 Dec, 2013 [facility] [place] [facility] [address] [id number] [place] [address] 11 Dec, 2013 [facility] [place] [facility] [address] [id number] [place] [address] 11 Dec, 2013 [facility] [place] [facility] [address] [id number] [place] [address] 08 Sep, 2013 [facility] [place] [facility] [address] [id number] [place] [address] 08 Dec, 2013 [facility] [place] [facility] [address] [id number] [place] [address] Dec, 2013 [facility] [place] [facility] [address] [id number] [place] [address] Dec, 2013 [facility] [place] [facility] [address] [id number] [place] [address] Dec, 2013 [facility] [place] [facility] [address] [id number] [place] [address] Dec, 2013 [facility] [place] [facility] [address] [id number] [place] [address] Nov, [facility] [place] [facility] [address] [id number] [place] [address] Nov, [facility] [place] [facility] [address] [id number] [place] [address] Nov, [facility] [place] [facility] [address] [id number] [place] [address] Nov, [facility] [place] [facility] [address] [id number] [place] [address] Nov, [facility] [place] [facility] [address] [id number] [place] [address] Nov, [facility] [place] [facility] [address] [id number] [place] [address] Nov, [facility] [place] [facility] [address] [id number] [place] [address] Nov, [facility] [place] [facility] [address] [id number] [place] [address] Nov, [facility] [place] [facility] [address] [id number] [place] [address] Nov, [facility] [place] [facility] [address] [id number] [place] [address] Oct, [facility] [place] [facility] [address] [id number] [place] [address] Oct, [facility] [place] [facility] [address] [id number] [place] [address] Oct, [facility] [place] [facility] [address] [id number] [place] [address] Oct, [facility] [place] [facility] [address] [id number] [place] [address] Oct, [facility] [place] [facility] [address] [id number] [place] [address] Oct, [facility] [place] [facility] [address] [id number] [place] [address] Oct, [facility] [place] [facility] [address] [id number] [place] [address] Oct, [facility] [place] [facility] [address] [id number] [place] [address] Oct, [facility] [place] [facility] [address] [id number] [place] [address] Oct, [facility] [place] [facility] [address] [id number] [place] [address] Oct, [facility] [place] [facility] [address] [id number] [place] [address] Oct, [facility] [place] [facility] [address] [id number] [place] [address] Oct, [facility] [place] [facility] [address] [id number] [place] [address] Sep, [facility] [place] [facility] [address] [id number] [place] [address] Sep, [facility] [place] [facility] [address] [id number] [place] [address] Sep, [facility] [place] [facility] [address] [id number] [place] [address] Sep, [facility] [place] [facility] [address] [id number] [place] [address] August, [facility] [place] [facility] [address] [id number] [place] [address] August, [facility] [place] [facility] [address] [id number] [place] [address] August, [facility] [place] [facility] [address] [id number] [place] [address] August, [facility] [place] [facility] [address] [id number] [place] [address] August, [facility] [place] [facility] [address] [id number] [place] [address] August, [facility] [place] [facility] [address] [id number] [place] [address] August, [facility] [place] [facility] [address] [id number] [place] [address] August, [facility] [place] [facility] [address] [id number] [place] [address] Jul, [facility] [place] [facility] [address] [id number] [place] [address] Jul, [facility] [place] [facility] [address] [id number] [place] [address] Jun, [facility] [place] [facility] [address] [id number] [place] [address] Jun, [facility] [place] [facility] [address] [id number] [place] [address] Jun, [facility] [place] [facility] [address] [id number] [place] [address] Jun, [facility] [place] [facility] [address] [id number] [place] [address] Jun, [facility] [place] [facility] [address] [id number] [place] [address] Jun, [facility] [place] [facility] [address] [id number] [place] [address] May, [facility] [place] [facility] [address] [id number] [place] [address] May, [facility] [place] [facility] [address] [id number] [place] [address] May, [facility] [place] [facility] [address] [id number] [place] [address] May, [facility] [place] [facility] [address] [id number] [place] [address] May, [facility] [place] [facility] [address] [id number] [place] [address] May, [facility] [place] [facility] [address] [id number] [place] [address] Apr, [facility] [place] [facility] [address] [facility] [id number] [place] [address] Apr, [facility] [place] [facility] [address] [facility] [id number] [place] [address] 15 Feb, 2013 [facility] [place] [facility] [address] [id number] [place] [address] 15 Feb, 2013 [facility] [place] [facility] [address] [id number] [place] [address] 15 Feb, 2013 [facility] [place] [facility] [address] [id number] [place] [address] 15 Feb, 2013 [facility] [place] [facility] [address] [id number] [place] [address] 13 Feb, 2013 [facility] [place] [facility] [address] [id number] [place] [address] Feb, [facility] [place] [facility] [address] [id number] [place] [address] Feb, [facility] [place] [facility] [address] [id number] [place] [address] Feb, [facility] [place] [facility] [address] [id number] [place] [address] Feb, [facility] [place] [facility] [address] [id number] [place] [address] Jan, [facility] [place] [facility] [address] [id number] [place] [address] Jan, [facility] [place] [facility] [address] [id number] [place] [address] Jan, [facility] [place] [facility] [address] [id number] [place] [address] Jan, [facility] [place] [facility] [address] [id number] [place] [address] Jan, [facility] [place] [facility] [address] [id number] [place] [address] Jan, [facility] [place] [facility] [address] [id number] [place] [address] 17 Dec, 2012 [facility] [place] [facility] [address] [id number] [place] [address] 12 Dec, 2012 [facility] [place] [facility] [address] [id number] [place] [address] 05 Dec, 2012 [facility] [place] [facility] [address] [id number] [place] [address] 05 Dec, 2012 [facility] [place] [facility] [address] [id number] [place] [address] Oct, [facility] [place] [facility] [address] [id number] [place] [address] Oct, [facility] [place] [facility] [address] [id number] [place] [address] Oct, [facility] [address] [id number] [place] [address] Oct, [facility] [address] [id number] [place] [address] Oct, [facility] [address] [id number] [place] [address] Sep, [facility] [address] [id number] [place] [address] August, [facility] [address] [id number] [place] [address] August, [facility] [address] [id number] [place] [address] August, [facility] [address] [id number] [place] [address] August, [facility] [address] [id number] [place] [address] August, [facility] [address] [id number] [place] [address] August, [facility] [address] [id number] [place] [address] August, [facility] [address] [id number] [place] [address] August, [facility] [address] [id number] [place] [address] August, [facility] [address] [id number] [place] [address] August, [facility] [address] [id number] [place] [address] August, [facility] [address] [id number] [place] [address] August, [facility] [address] [id number] [place] [address] Jun, [facility] [place] [facility] [address] [id number] [place] [address] Jun, [facility] [address] [id number] [place] [address] Jun, [facility] [place] [facility] [address] [id number] [place] [address] May, [facility] [address] [id number] [place] [address] May, [facility] [address] [id number] [place] [address] Mar, [facility] [address] [id number] [place] [address] Mar, [facility] [address] [id number] [place] [address] Feb, [facility] [place] [facility] [address] [id number] [place] [address] Feb, [facility] [address] [id number] [place] [address] Feb, [facility] [place] [facility] [address] [id number] [place] [address] Feb, [facility] [place] [facility] [address] [id number] [address] Dec, [facility] [place] [facility] [address] [id number] [place] [address] August, [facility] [place] [facility] [address] [id number] [place] [address] Jul, [facility] [place] [facility] [address] [id number] [place] [address] Jul, [facility] [place] [facility] [address] [id number] [place] [address] 13 Jun, 2011 [facility] [address] [id number] [place] [address] 13 Jun, 2011 [facility] [place] [facility] [address] [id number] [place] [address] 09 Jun, 2011 [facility] [address] [id number] [place] [address] 06 Jun, 2011 [facility] [place] [facility] [address] [id number] [place] [address] 02 Jun, 2011 [facility] [place] [facility] [address] [id number] [place] [address] 21 May, 2011 [facility] [place] [facility] [address] [id number] [place] [address] 19 May, 2011 [facility] [address] [id number] [place] [address] 14 May, 2011 [facility] [address] [id number] [place] [address] 06 May, 2011 [facility] [place] [facility] [address] [id number] [place] [address] Apr, [facility] [address] [facility] [id number] [place] [address] Apr, [facility] [place] [facility] [address] [id number] [place] [address] Apr, [facility] [place] [facility] [address] [id number] [place] [address] Mar, [facility] [place] [facility] [address] [id number] [place] [address] Mar, [facility] [place] [facility] [address] [facility] [id number] [place] [address] Mar, [facility] [place] [facility] [address] [facility] [id number] [place] [address] Mar, [facility] [address] [facility] [id number] [address] May, [facility] [address] [id number], [place] [address] Feb, [facility] [address] [facility] [id number], [place] [address] Feb, [facility] [address] [id number], [place] [address] Jan, [facility] [address] [facility] [id number], [place] [address] Jan, IMMUNIZATIONS No Known Immunizations SOCIAL HISTORY Never Assessed REASON FOR VISIT Controlled Med Refill 07/01/17 PLAN OF CARE VITAL SIGNS MEDICATIONS Medication Instructions Dosage Frequency Start Date End Date Duration Status Xanax 1 MG Orally Twice a day 1 tablet 12h Jun, 28 days Active Oxycodone HCl 10 MG Orally Once a day 1 tablet 24h Jun, 28 days Active RESULTS No Results [...]
--- OUTSIDE RECORDS SUMMARY | 2018-09-19 01:35 | XMS REPORT ---
Author Author SAMMY ARZATE [facility] eClinical[employer] Address Unknown Phone Unavailable Care Team Providers Care Dye Operator Name Role Phone SAMMY ARZATE CP Unavailable Allergies No Known Allergies Problems Problem Type Condition Code Onset Dates Condition Status Problem Major depressive disorder, recurrent episode, moderate 296.32 Active Problem Other chronic nonalcoholic liver disease 571.8 Active Problem Diaphragmatic hernia without mention of obstruction or gangrene 553.3 Active Problem Family history of other malignant neoplasm V16.49 Active Problem Cervicalgia 723.1 Active Problem Family history of other cardiovascular diseases V17.49 Active Problem Umbilical hernia without mention of obstruction or gangrene 553.1 Active Problem Memory loss 780.93 Active Problem Family history of diabetes mellitus V18.0 Active Problem Other malaise and fatigue 780.79 Active Problem Abdominal pain, right lower quadrant 789.03 Active Problem Lumbago 724.2 Active Problem Depressive disorder, not elsewhere classified 311 Active Problem Esophageal reflux 530.81 Active Problem Unspecified otalgia 388.70 Active Problem Abdominal pain, generalized 789.07 Active Problem Other abnormal blood chemistry 790.6 Active Problem Other abnormal glucose 790.29 Active Problem Other postprocedural status V45.89 Active Problem Unspecified neuralgia, neuritis, and radiculitis 729.2 Active Problem Chest pain, unspecified 786.50 Active Problem Anxiety state, unspecified 300.00 Active Problem Major depressive disorder, recurrent episode, severe, without mention of psychotic behavior 296.33 Active Problem Panic disorder without agoraphobia 300.01 Active Problem 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 Problem Umbilical hernia with obstruction 552.1 Active Problem Family history of malignant neoplasm of gastrointestinal tract V16.0 Active Problem Abnormal involuntary movements 781.0 Active Problem Essential hypertension, benign 401.1 Active Problem Abdominal pain, epigastric 789.06 Active Medications Medication Code System Code Instructions Start Date End Date Status Dosage Xanax [facility] [address]-26 1 MG Rx to be filled on 03/01/15 July 20, 2014 1 tablet by Oral route 2 times per day Results No Known Results Summary Purpose eClinicalWorks Submission
--- OUTSIDE RECORDS SUMMARY | 2018-09-19 01:35 | XMS REPORT ---
Author Author SAMMY ARZATE [facility] eClinical[employer] Address Unknown Phone Unavailable Care Team Providers Care Fiber Design Engineer Name Role Phone SAMMY ARZATE CP Unavailable [...] Start Date End Date Status Dosage Xanax [facility] [address]-84 1 MG July 20, 2014 1 tablet by Oral route 2 times per day Results No Known Results Summary Purpose eClinicalWorks Submission
--- OUTSIDE RECORDS SUMMARY | 2018-09-19 01:35 | XMS REPORT ---
Author Author SAMMY ARZATE [facility] e[employer] Address Unknown Phone Unavailable Care Team Providers Care Roofing Technician Name Role Phone SAMMY ARZATE CP Unavailable [...] Start Date End Date Status Dosage Xanax [facility] [address]-36 1 MG July 20, 2014 1 tablet by Oral route 2 times per day Results No Known Results Summary Purpose eClinicalWorks Submission
--- OUTSIDE RECORDS SUMMARY | 2018-09-19 01:36 | XMS REPORT ---
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 Active 617426348 Problem 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 Active 955571839 Problem Other chronic pain G89.29 Active 55481414 Problem Osteoarthritis, unspecified osteoarthritis type, unspecified site M19.90 Active 597530025 ALLERGIES No Information ENCOUNTERS Encounter Location Date Diagnosis [place] [address] [address] August, Other chronic pain G89.29 and Other specified personal risk factors, not elsewhere classified Z91.89 [place] [address] [place] [id number] [place] [address] August, Osteoarthritis, unspecified osteoarthritis type, unspecified site M19.90 [place] [address] [address] Jul, Osteoarthritis, unspecified osteoarthritis type, unspecified site M19.90 [place] [address] [address] Jun, Osteoarthritis, unspecified osteoarthritis type, unspecified site M19.90 [place] [address] [address] Jun, [place] [address] [address] Jun, Osteoarthritis, unspecified osteoarthritis type, unspecified site M19.90 [place] [address] [address] May, [place] [address] [address] May, Benign prostatic hyperplasia, unspecified whether lower urinary tract symptoms present N40.0 [place] [address] [place] [address] May, Osteoarthritis, unspecified osteoarthritis type, unspecified site M19.90 [place] [address] [place] [address] May, [place] [address] [place] [address] Apr, Other chronic pain G89.29 ; Family history of diabetes mellitus Z83.3 ; Forgetfulness R68.89 ; History of multiple concussions Z87.820 ; Gastroesophageal reflux disease without esophagitis K21.9 and Screening, lipid Z13.220 [place] [address] [address] Apr, Other chronic pain G89.29 ; Forgetfulness R68.89 ; History of multiple concussions Z87.820 ; Gastroesophageal reflux disease without esophagitis K21.9 ; Screening, lipid Z13.220 and Family history of diabetes mellitus Z83.3 [place] [address] [address] Apr, Osteoarthritis, unspecified osteoarthritis type, unspecified site M19.90 [place] [address] [address] Apr, Osteoarthritis, unspecified osteoarthritis type, unspecified site M19.90 [place] [address] [address] Apr, [place] [id number] [address] Mar, Osteoarthritis, unspecified osteoarthritis type, unspecified site M19.90 [facility] [address] [address] Feb, Osteoarthritis, unspecified osteoarthritis type, unspecified site M19.90 [facility] [address] [address] Jan, Osteoarthritis, unspecified osteoarthritis type, unspecified site M19.90 [facility] [address] [address] Dec, Osteoarthritis, unspecified osteoarthritis type, unspecified site M19.90 [facility] [address] [address] Dec, [place] [address] [place] [id number] [place] [address] Nov, Encounter for screening for lipid disorder Z13.220 [facility] [address] [address] Nov, Osteoarthritis, unspecified osteoarthritis type, unspecified site M19.90 ; Encounter for screening for lipid disorder Z13.220 and Other chronic pain G89.29 [facility] [address] [address] Nov, Osteoarthritis, unspecified osteoarthritis type, unspecified site M19.90 [facility] [address] [address] Nov, [facility] [address] [address] Nov, [facility] [address] [address] Oct, Osteoarthritis, unspecified osteoarthritis type, unspecified site M19.90 [facility] [address] [address] Oct, Gastroesophageal reflux disease without esophagitis K21.9 [facility] [address] [place] [id number] [place] [address] Sep, Osteoarthritis, unspecified osteoarthritis type, unspecified site M19.90 [facility] [address] [place] [id number] [place] [address] August, Osteoarthritis, unspecified osteoarthritis type, unspecified site M19.90 [place] [address] [place] [id number] [place] [address] August, Osteoarthritis, unspecified osteoarthritis type, unspecified site M19.90 [place] [address] [place] [id number] [place] [address] Jul, Osteoarthritis, unspecified osteoarthritis type, unspecified site M19.90 and Gastroesophageal reflux disease without esophagitis K21.9 [place] [address] [place] [id number] [place] [address] Jul, Osteoarthritis, unspecified osteoarthritis type, unspecified site M19.90 [place] [address] [place] [id number] [place] [address] Jun, Ventral hernia without obstruction or gangrene K43.9 [place] [address] [place] [id number] [place] [address] Jun, Osteoarthritis, unspecified osteoarthritis type, unspecified site M19.90 [place] [address] [place] [id number] [place] [address] May, [place] [address] [place] [id number] [place] [address] May, Osteoarthritis, unspecified osteoarthritis type, unspecified site M19.90 [facility] [address] [place] [id number] [place] [address] Apr, Osteoarthritis, unspecified osteoarthritis type, unspecified site M19.90 [place] [address] [place] [id number] [place] [address] Mar, [facility] [address] [place] [address] Mar, Osteoarthritis, unspecified osteoarthritis type, unspecified site M19.90 and Lumbago with sciatica, left side M54.42 [facility] [address] [place] [id number] [place] [address] Feb, [facility] [address] [place] [id number] [place] [address] Feb, [facility] [address] [place] [id number] [place] [address] Feb, Osteoarthritis, unspecified osteoarthritis type, unspecified site M19.90 [facility] [address] [place] [id number] [place] [address] Feb, [place] [address] [place] [id number] [place] [address] Feb, Low back pain M54.5 and Other chronic pain G89.29 [place] [address] [place] [id number] [place] [address] Feb, [facility] [address] [place] [id number] [place] [address] Jan, [facility] [address] [place] [id number] [place] [address] Jan, [facility] [address] [place] [id number] [place] [address] 24 Dec, 2015 Lumbago with sciatica, left side M54.42 [facility] [address] [place] [id number] [place] [address] 15 Dec, 2015 Irritable bowel syndrome with both constipation and diarrhea K58.0 ; Screening, lipid Z13.220 ; Nocturia R35.1 ; Family history of diabetes mellitus Z83.3 and Dysuria R30.0 [facility] [address] [place] [id number] [place] [address] 14 Dec, 2015 Irritable bowel syndrome with both constipation and diarrhea K58.0 ; Nocturia R35.1 ; Family history of diabetes mellitus Z83.3 ; Dysuria R30.0 and Screening, lipid Z13.220 [facility] [address] [place] [id number] [place] [address] 12 Dec, 2015 [facility] [address] [address] 07 Dec, 2015 [facility] [address] [place] [id number] [place] [address] Dec, Pain with swallowing R13.10 [place] [address] [address] Nov, [place] [address] [place] [id number] [place] [address] Nov, [facility] [address] [address] Oct, [place] [address] [place] [id number] [place] [address] Sep, [place] [address] [address] Sep, Osteoarthritis, unspecified osteoarthritis type, unspecified site M19.90 [place] [address] [place] [id number] [place] [address] Sep, Back pain M54.9 [place] [address] [place] [id number] [place] [address] Sep, Lumbago with sciatica, right side M54.41 and Bilateral impacted cerumen H61.23 [facility] [address] [place] [id number] [place] [address] Sep, [facility] [address] [place] [id number] [place] [address] August, Bronchitis J40 [place] [address] [address] August, [facility] [id number] [place] [address] August, [facility] [address] [address] August, [facility] [address] [place] [id number] [place] [address] Jul, [facility] [address] [place] [id number] [place] [address] Jul, Back pain M54.9 [facility] [address] [place] [id number] [place] [address] Jun, Degenerative disc disease at L5-S1 level M51.36 and Bronchitis J40 [facility] [address] [place] [id number] [place] [address] Jun, [facility] [address] [place] [address] [address] May, [facility] [address] [place] [id number] [place] [address] Apr, [facility] [address] [place] [address] [address] Mar, [facility] [address] [address] Mar, [facility] [address] [address] Feb, [facility] [address] [place] [address] Jan, [facility] [address] [place] [address] [address] Dec, [facility] [address] [address] Nov, [facility] [address] [facility] [id number] [address] Oct, [facility] [address] [address] Oct, Right shoulder pain 719.41 [facility] [address] [address] Sep, [facility] [address] [place] [id number] [place] [address] Sep, Vertigo 780.4 and Elbow fracture, right 812.40 [facility] [address] [place] [id number] [place] [address] Sep, [facility] [address] [place] [address] [address] August, [facility] [address] [place] [address] Jul, [facility] [address] [address] Jul, [facility] [address] [address] Jun, [facility] [address] [address] Jun, [facility] [address] [address] Jun, [facility] [address] [address] Jun, [facility] [address] [address] Jun, [facility] [address] [place] [id number] [address] Jun, [facility] [address] [address] May, [facility] [place] [facility] [address] [id number] [place] [address] May, [facility] [place] [facility] [address] [id number] [place] [address] May, [facility] [place] [facility] [address] [id number] [place] [address] May, [facility] [place] [facility] [address] [id number] [place] [address] May, [facility] [place] [facility] [address] [id number] [place] [address] May, [facility] [place] [facility] [address] [id number] [place] [address] Apr, [facility] [place] [facility] [address] [id number] [place] [address] Apr, [facility] [place] [facility] [address] [id number] [place] [address] Apr, [facility] [place] [facility] [address] [id number] [place] [address] Apr, [facility] [place] [facility] [address] [facility] [id number] [place] [address] Apr, [facility] [place] [facility] [address] [id number] [place] [address] Apr, [facility] [place] [facility] [address] [id number] [place] [address] Apr, [facility] [place] [facility] [address] [id number] [place] [address] Mar, [facility] [place] [facility] [address] [id number] [place] [address] Mar, [facility] [place] [facility] [address] [id number] [place] [address] Mar, [facility] [place] [facility] [address] [id number] [address] Mar, [facility] [place] [facility] [address] [id number] [place] [address] Mar, [facility] [place] [facility] [address] [id number] [place] [address] Mar, [facility] [place] [facility] [address] [facility] [id number] [place] [address] Mar, [facility] [place] [facility] [address] [id number] [place] [address] Mar, [facility] [place] [facility] [address] [id number] [place] [address] Mar, [facility] [place] [facility] [address] [id number] [place] [address] Mar, [facility] [place] [facility] [address] [facility] [id number] [place] [address] Mar, [facility] [place] [facility] [address] [id number] [place] [address] Mar, [facility] [place] [facility] [address] [id number] [place] [address] Mar, [facility] [place] [facility] [address] [facility] [id number] [place] [address] Mar, [facility] [place] [facility] [address] [id number] [place] [address] Mar, [facility] [place] [facility] [address] [id number] [place] [address] Feb, [facility] [place] [facility] [address] [id number] [place] [address] Feb, [facility] [place] [facility] [address] [facility] [id number] [place] [address] Feb, [facility] [place] [facility] [address] [facility] [id number] [place] [address] Feb, [facility] [place] [facility] [address] [id number] [place] [address] Feb, [facility] [place] [facility] [address] [id number] [place] [address] Feb, [facility] [place] [facility] [address] [id number] [place] [address] Jan, [facility] [place] [facility] [address] [id number] [place] [address] Jan, [facility] [place] [facility] [address] [id number] [place] [address] Jan, [facility] [place] [facility] [address] [id number] [place] [address] Jan, [facility] [place] [facility] [address] [id number] [place] [address] Jan, [facility] [place] [facility] [address] [id number] [place] [address] Jan, [facility] [place] [facility] [address] [id number] [place] [address] 29 Dec, 2013 [facility] [place] [facility] [address] [id number] [place] [address] 29 Dec, 2013 [facility] [place] [facility] [address] [id number] [place] [address] 26 Dec, 2013 [facility] [place] [facility] [address] [id number] [place] [address] 11 Dec, 2013 [facility] [place] [facility] [address] [id number] [place] [address] 11 Dec, 2013 [facility] [place] [facility] [address] [id number] [place] [address] 08 Dec, 2013 [facility] [place] [facility] [address] [id number] [place] [address] 08 Dec, 2013 [facility] [place] [facility] [address] [id number] [place] [address] Dec, [facility] [place] [facility] [address] [id number] [place] [address] Dec, [facility] [place] [facility] [address] [id number] [place] [address] Dec, [facility] [place] [facility] [address] [id number] [place] [address] Dec, [facility] [place] [facility] [address] [id number] [place] [address] Nov, [facility] [place] [facility] [address] [id number] [place] [address] Nov, [facility] [place] [facility] [address] [id number] [place] [address] Nov, [facility] [place] [facility] [address] [id number] [place] [address] Nov, [facility] [place] [facility] [address] [id number] [place] [address] Nov, [facility] [place] [facility] [address] [id number] [place] [address] Nov, [facility] [place] [facility] [address] [id number] [place] [address] Nov, [facility] [place] [facility] [address] [id number] [place] [address] Nov, [facility] [place] [facility] [address] [id number] [place] [address] Nov, [facility] [place] [facility] [address] [id number] [place] [address] Nov, [facility] [place] [facility] [address] [id number] [place] [address] Oct, [facility] [place] [facility] [address] [id number] [place] [address] Oct, [facility] [place] [facility] [address] [id number] [place] [address] Oct, [facility] [place] [facility] [address] [id number] [place] [address] Oct, [facility] [place] [facility] [address] [id number] [place] [address] Oct, [facility] [place] [facility] [address] [id number] [place] [address] Oct, [facility] [place] [facility] [address] [id number] [place] [address] Oct, [facility] [place] [facility] [address] [id number] [place] [address] Oct, [facility] [place] [facility] [address] [id number] [place] [address] Oct, [facility] [place] [facility] [address] [id number] [place] [address] Oct, [facility] [place] [facility] [address] [id number] [place] [address] Oct, [facility] [place] [facility] [address] [id number] [place] [address] Oct, [facility] [place] [facility] [address] [id number] [place] [address] Oct, [facility] [place] [facility] [address] [id number] [place] [address] Sep, [facility] [place] [facility] [address] [id number] [place] [address] Sep, [facility] [place] [facility] [address] [id number] [place] [address] Sep, [facility] [place] [facility] [address] [id number] [place] [address] Sep, [facility] [place] [facility] [address] [id number] [place] [address] August, [facility] [place] [facility] [address] [id number] [place] [address] August, [facility] [place] [facility] [address] [id number] [place] [address] August, [facility] [place] [facility] [address] [id number] [place] [address] August, [facility] [place] [facility] [address] [id number] [place] [address] August, [facility] [place] [facility] [address] [id number] [place] [address] August, [facility] [place] [facility] [address] [id number] [place] [address] August, [facility] [place] [facility] [address] [id number] [place] [address] August, [facility] [address] [id number] [place] [address] Jul, [facility] [place] [facility] [address] [id number] [place] [address] Jul, [facility] [place] [facility] [address] [id number] [place] [address] Jun, [facility] [place] [facility] [address] [id number] [place] [address] Jun, [facility] [place] [facility] [address] [id number] [place] [address] Jun, [facility] [place] [facility] [address] [id number] [place] [address] Jun, [facility] [place] [facility] [address] [id number] [place] [address] Jun, [facility] [place] [facility] [address] [id number] [place] [address] Jun, [facility] [place] [facility] [address] [id number] [place] [address] May, [facility] [place] [facility] [address] [id number] [place] [address] May, [facility] [place] [facility] [address] [id number] [place] [address] 14 May, 2013 [facility] [place] [facility] [address] [id number] [place] [address] 14 May, 2013 [facility] [place] [facility] [address] [id number] [place] [address] May, [facility] [place] [facility] [address] [id number] [place] [address] May, [facility] [place] [facility] [address] [id number] [place] [address] Apr, [facility] [place] [facility] [address] [id number] [place] [address] Apr, [facility] [place] [facility] [address] [id number] [place] [address] 15 Feb, 2013 [facility] [place] [facility] [address] [id number] [place] [address] 15 Feb, 2013 [facility] [place] [facility] [address] [facility] [id number] [place] [address] 15 Feb, 2013 [facility] [place] [facility] [address] [id number] [place] [address] 15 Feb, 2013 [facility] [place] [facility] [address] [id number] [place] [address] 13 Feb, 2013 [facility] [place] [facility] [address] [id number] [place] [address] 13 Feb, 2013 [facility] [place] [facility] [address] [id number] [place] [address] 11 Feb, 2013 [facility] [place] [facility] [address] [id number] [address] 11 Feb, 2013 [facility] [place] [facility] [address] [id number] [place] [address] 08 Feb, 2013 [facility] [place] [facility] [address] [id number] [place] [address] Jan, 2012 [facility] [place] [facility] [address] [id number] [place] [address] Jan, 2012 [facility] [place] [facility] [address] [id number] [place] [address] Jan, [facility] [place] [facility] [address] [id number] [place] [address] Jan, [facility] [place] [facility] [address] [id number] [place] [address] Jan, [facility] [place] [facility] [address] [id number] [place] [address] Jan, [facility] [place] [facility] [address] [id number] [place] [address] 17 Dec, 2012 [facility] [place] [facility] [address] [id number] [place] [address] 12 Dec, 2012 [facility] [place] [facility] [address] [id number] [place] [address] 05 Dec, 2012 [facility] [place] [facility] [address] [id number] [place] [address] 05 Dec, 2012 [facility] [place] [facility] [address] [id number] [place] [address] Oct, [facility] [place] [facility] [address] [id number] [place] [address] Oct, [facility] [place] [facility] [address] [id number] [place] [address] Oct, [facility] [place] [facility] [address] [id number] [place] [address] Oct, 2012 [facility] [place] [facility] [address] [id number] [place] [address] Oct, [facility] [address] [id number] [place] [address] Sep, [facility] [address] [id number] [place] [address] August, [facility] [address] [id number] [place] [address] August, [facility] [address] [id number] [place] [address] August, [facility] [address] [id number] [place] [address] August, [facility] [address] [id number] [place] [address] August, [facility] [address] [id number] [place] [address] August, [facility] [address] [id number] [place] [address] August, [facility] [address] [id number] [place] [address] August, [facility] [address] [id number] [place] [address] August, [facility] [address] [id number] [place] [address] August, [facility] [place] [facility] [address] [id number] [place] [address] August, [facility] [place] [facility] [address] [id number] [place] [address] August, [facility] [place] [facility] [address] [id number] [place] [address] Jun, [facility] [place] [facility] [address] [id number] [place] [address] Jun, [facility] [address] [id number] [place] [address] Jun, [facility] [address] [id number] [place] [address] May, [facility] [address] [id number] [place] [address] May, [facility] [address] [id number] [place] [address] Mar, [facility] [address] [id number] [place] [address] Mar, [facility] [address] [id number] [place] [address] Feb, [facility] [address] [id number] [place] [address] Feb, [facility] [address] [id number] [place] [address] Feb, [facility] [address] [id number] [place] [address] Feb, [facility] [address] [id number] [place] [address] Dec, [facility] [address] [id number] [place] [address] August, [facility] [address] [id number] [place] [address] Jul, [facility] [address] [id number] [place] [address] 05 Jul, 2011 [facility] [address] [id number] [place] [address] 13 Jun, 2011 [facility] [address] [id number] [place] [address] 13 Jun, 2011 [facility] [address] [id number] [place] [address] Jun, [facility] [address] [id number] [place] [address] Jun, [facility] [place] [facility] [address] [id number] [place] [address] Jun, [facility] [address] [id number] [place] [address] May, [facility] [place] [facility] [address] [id number] [place] [address] May, [facility] [address] [id number] [place] [address] May, [facility] [address] [id number] [place] [address] May, [facility] [address] [facility] [id number] [place] [address] Apr, [facility] [place] [facility] [address] [id number] [place] [address] Apr, [facility] [address] [facility] [id number] [place] [address] Apr, [facility] [address] [facility] [id number] [place] [address] Mar, [facility] [place] [facility] [address] [facility] [id number] [place] [address] Mar, [facility] [place] [facility] [address] [id number] [place] [address] Mar, [facility] [place] [facility] [address] [id number] [place] [address] Mar, [facility] [place] [facility] [address] [id number] [place] [address] May, [facility] [place] [facility] [address] [id number] [place] [address] Feb, [facility] [place] [facility] [address] [facility] [id number] [place] [address] Feb, [facility] [address] [facility] [id number] [place] [address] Jan, [facility] [address] [facility] [id number] [place] [address] Jan, IMMUNIZATIONS No Known Immunizations SOCIAL HISTORY Never Assessed REASON FOR VISIT Resend scripts PLAN OF CARE VITAL SIGNS MEDICATIONS Medication Instructions Dosage Frequency Start Date End Date Duration Status Xanax 1 MG Orally Twice a day 1 tablet 12h 25 Jun, 2014 28 days Active Oxycodone HCl 10 MG Orally Once a day 1 tablet 24h 08 Apr, 2017 28 days Active RESULTS No Results [...]
--- OUTSIDE RECORDS SUMMARY | 2018-09-19 01:36 | XMS REPORT ---
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 Active 961602595 Problem Osteoarthritis, unspecified osteoarthritis type, unspecified site M19.90 Active 369195042 Problem 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 Active [id number] ALLERGIES No Information SOCIAL HISTORY Never Assessed PLAN OF CARE VITAL SIGNS MEDICATIONS Medication Instructions Dosage Frequency Start Date End Date Duration Status Xanax 1 MG Orally Twice a day 1 tablet 12h 25 Jun, 2014 28 days Active Oxycodone HCl 10 MG Orally Once a day 1 tablet 24h 30 Aug, 2016 28 days Active RESULTS No Results PROCEDURES No Known procedures IMMUNIZATIONS No Known Immunizations MEDICAL (GENERAL) HISTORY Type Description Date Medical [...]
--- OUTSIDE RECORDS SUMMARY | 2018-09-19 01:36 | XMS REPORT ---
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
--- OUTSIDE RECORDS SUMMARY | 2018-09-19 01:37 | XMS REPORT ---
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 Active 624403206 Problem 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 Active 936966386 Problem Other chronic pain G89.29 Active 13881485 Problem Osteoarthritis, unspecified osteoarthritis type, unspecified site M19.90 Active 977438986 ALLERGIES No Information ENCOUNTERS Encounter Location Date Diagnosis [place] [id number] [place] [address] Jun, Osteoarthritis, unspecified osteoarthritis type, unspecified site M19.90 [place] [address], [place] [address] Jun, [place] [id number] [place] [address] Jun, Osteoarthritis, unspecified osteoarthritis type, unspecified site M19.90 [place] [id number] [place] [address] May, [place] [id number] [place] [address] May, Benign prostatic hyperplasia, unspecified whether lower urinary tract symptoms present N40.0 [place] [address] [place] [id number] [place] [address] May, Osteoarthritis, unspecified osteoarthritis type, unspecified site M19.90 [place] [id number] [place] [address] May, [place] [address] [place] [id number] [place] [address] Apr, Other chronic pain G89.29 ; Family history of diabetes mellitus Z83.3 ; Forgetfulness R68.89 ; History of multiple concussions Z87.820 ; Gastroesophageal reflux disease without esophagitis K21.9 and Screening, lipid Z13.220 [place] [address] [place] [address] Apr, Other chronic pain G89.29 ; Forgetfulness R68.89 ; History of multiple concussions Z87.820 ; Gastroesophageal reflux disease without esophagitis K21.9 ; Screening, lipid Z13.220 and Family history of diabetes mellitus Z83.3 [place] [address] [place] [id number] [place] [address] Apr, Osteoarthritis, unspecified osteoarthritis type, unspecified site M19.90 [place] [address] [place] [id number] [place] [address] Apr, Osteoarthritis, unspecified osteoarthritis type, unspecified site M19.90 [place] [address] [address] Apr, [place] [address] [place] [id number] [place] [address] Mar, Osteoarthritis, unspecified osteoarthritis type, unspecified site M19.90 [place] [id number] [place] [address] Feb, Osteoarthritis, unspecified osteoarthritis type, unspecified site M19.90 [place] [address] [place] [address] Jan, Osteoarthritis, unspecified osteoarthritis type, unspecified site M19.90 [place] [address] [place] [id number] [address] Dec, Osteoarthritis, unspecified osteoarthritis type, unspecified site M19.90 [facility] [address] [place] [id number] [place] [address] Dec, [facility] [address] [place] [id number] [place] [address] Nov, Encounter for screening for lipid disorder Z13.220 [place] [address] [place] [id number] [place] [address] Nov, Osteoarthritis, unspecified osteoarthritis type, unspecified site M19.90 ; Encounter for screening for lipid disorder Z13.220 and Other chronic pain G89.29 [place] [address] [place] [id number] [place] [address] Nov, Osteoarthritis, unspecified osteoarthritis type, unspecified site M19.90 [place] [address] [place] [id number] [place] [address] Nov, [place] [address] [place] [id number] [place] [address] Nov, [place] [address] [place] [id number] [place] [address] Oct, Osteoarthritis, unspecified osteoarthritis type, unspecified site M19.90 [place] [address] [place] [address] Oct, Gastroesophageal reflux disease without esophagitis K21.9 [facility] [id number] [place] [address] Sep, Osteoarthritis, unspecified osteoarthritis type, unspecified site M19.90 [place] [address] [place] [id number] [place] [address] August, Osteoarthritis, unspecified osteoarthritis type, unspecified site M19.90 [place] [address] [address] August, Osteoarthritis, unspecified osteoarthritis type, unspecified site M19.90 [facility] [id number] [address] Jul, Osteoarthritis, unspecified osteoarthritis type, unspecified site M19.90 and Gastroesophageal reflux disease without esophagitis K21.9 [facility] [address] [place] [id number] [place] [address] Jul, Osteoarthritis, unspecified osteoarthritis type, unspecified site M19.90 [facility] [address] [place] [id number] [place] [address] Jun, Ventral hernia without obstruction or gangrene K43.9 [place] [address] [place] [id number] [place] [address] Jun, Osteoarthritis, unspecified osteoarthritis type, unspecified site M19.90 [place] [address] [place] [id number] [place] [address] May, [facility] [address] [place] [id number] [place] [address] May, Osteoarthritis, unspecified osteoarthritis type, unspecified site M19.90 [facility] [address] [place] [id number] [place] [address] Apr, Osteoarthritis, unspecified osteoarthritis type, unspecified site M19.90 [facility] [address] [place] [id number] [address] Mar, [facility] [address] [place] [id number] [place] [address] Mar, Osteoarthritis, unspecified osteoarthritis type, unspecified site M19.90 and Lumbago with sciatica, left side M54.42 [facility] [address] [place] [id number] [place] [address] Feb, [facility] [address] [place] [id number], [place] [address] Feb, [facility] [id number] [address] Feb, Osteoarthritis, unspecified osteoarthritis type, unspecified site M19.90 [facility] [address] [place] [id number] [place] [address] Feb, [facility] [address] [place] [id number] [place] [address] Feb, Low back pain M54.5 and Other chronic pain G89.29 [facility] [address] [place] [id number] [place] [address] Feb, [facility] [address] [place] [id number] [place] [address] Jan, [facility] [address] [place] [id number] [place] [address] Jan, [facility] [address] [place] [id number] [place] [address] 24 Dec, 2015 Lumbago with sciatica, left side M54.42 [facility] [address] [place] [id number] [place] [address] 15 Dec, 2015 Irritable bowel syndrome with both constipation and diarrhea K58.0 ; Screening, lipid Z13.220 ; Nocturia R35.1 ; Family history of diabetes mellitus Z83.3 and Dysuria R30.0 [place] [address] [place] [address] 14 Dec, 2015 Irritable bowel syndrome with both constipation and diarrhea K58.0 ; Nocturia R35.1 ; Family history of diabetes mellitus Z83.3 ; Dysuria R30.0 and Screening, lipid Z13.220 [facility] [address] [place] [id number] [place] [address] 12 Dec, 2015 [facility] [address] [place] [id number] [place] [address] 07 Dec, 2015 [facility] [address] [id number] [place] [address] Dec, Pain with swallowing R13.10 [facility] [address] [place] [id number] [place] [address] Nov, [facility] [address] [place] [id number] [place] [address] Nov, [facility] [address] [place] [id number] [place] [address] Oct, [facility] [address] [place] [id number] [place] [address] Sep, [facility] [address] [place] [id number] [place] [address] Sep, Osteoarthritis, unspecified osteoarthritis type, unspecified site M19.90 [facility] [address] [place] [id number] [place] [address] 07 Sep, 2015 Back pain M54.9 [facility] [address] [place] [id number] [place] [address] Sep, Lumbago with sciatica, right side M54.41 and Bilateral impacted cerumen H61.23 [facility] [address] [place] [id number] [place] [address] Sep, [facility] [address] [id number] [place] [address] August, Bronchitis J40 [facility] [address] [place] [id number] [place] [address] August, [facility] [address] [id number] [place] [address] August, [facility] [address] [id number] [place] [address] August, [facility] [address] [id number] [place] [address] Jul, [facility] [address] [place] [id number] [place] [address] Jul, Back pain M54.9 [facility] [address] [id number] [place] [address] Jun, Degenerative disc disease at L5-S1 level M51.36 and Bronchitis J40 [facility] [address] [place] [id number] [place] [address] Jun, [facility] [address] [address] May, [facility] [address] [place] [id number] [place] [address] Apr, [facility] [address] [address] Mar, [facility] [address] [place] [id number] [place] [address] Mar, [facility] [address] [place] [id number] [place] [address] Feb, [facility] [address] [id number] [place] [address] Jan, [facility] [address] [place] [id number] [place] [address] Dec, [facility] [address] [id number] [place] [address] Nov, [facility] [address] [place] [id number] [place] [address] Oct, [facility] [address] [place] [id number] [place] [address] Oct, Right shoulder pain 719.41 [facility] [address] [address] Sep, [facility] [address] [place] [id number] [place] [address] Sep, Vertigo 780.4 and Elbow fracture, right 812.40 [facility] [place] [facility] [address] [id number] [place] [address] 08 Sep, 2014 [facility] [place] [facility] [address] [id number] [place] [address] August, [facility] [place] [facility] [address] [id number] [place] [address] Jul, [facility] [place] [facility] [address] [id number] [place] [address] Jul, [facility] [place] [facility] [address] [id number] [place] [address] Jun, [facility] [place] [facility] [address] [id number] [place] [address] Jun, [facility] [place] [facility] [address] [id number] [place] [address] Jun, [facility] [place] [facility] [address] [id number] [place] [address] Jun, [facility] [place] [facility] [address] [id number] [place] [address] Jun, [facility] [place] [facility] [address] [id number] [place] [address] Jun, [facility] [place] [facility] [address] [id number] [place] [address] May, [facility] [place] [facility] [address] [id number] [address] May, [facility] [place] [facility] [address] [id number] [place] [address] May, [facility] [place] [facility] [address] [id number] [place] [address] May, [facility] [place] [facility] [address] [id number] [place] [address] May, [facility] [place] [facility] [address] [id number] [place] [address] May, [facility] [place] [facility] [address] [id number] [place] [address] Apr, [facility] [place] [facility] [address] [id number] [place] [address] Apr, [facility] [place] [facility] [address] [id number] [place] [address] Apr, [facility] [place] [facility] [address] [id number] [place] [address] Apr, [facility] [place] [facility] [address] [id number] [place] [address] Apr, [facility] [place] [facility] [address] [id number] [place] [address] Apr, [facility] [place] [facility] [address] [id number] [place] [address] Apr, [facility] [place] [facility] [address] [id number] [place] [address] Mar, [facility] [place] [facility] [address] [id number] [place] [address] Mar, [facility] [place] [facility] [address] [facility] [id number] [place] [address] Mar, [facility] [place] [facility] [address] [id number] [place] [address] 31 Mar, 2014 [facility] [place] [facility] [address] [id number] [place] [address] 31 Mar, 2014 [facility] [place] [facility] [address] [id number] [place] [address] Mar, [facility] [place] [facility] [address] [id number] [place] [address] 30 Mar, 2014 [facility] [place] [facility] [address] [id number] [place] [address] 30 Mar, 2014 [facility] [place] [facility] [address] [id number] [place] [address] Mar, [facility] [place] [facility] [address] [id number] [place] [address] Mar, [facility] [place] [facility] [address] [id number] [place] [address] Mar, [facility] [place] [facility] [address] [id number] [place] [address] Mar, [facility] [place] [facility] [address] [id number] [place] [address] Mar, [facility] [place] [facility] [address] [id number] [place] [address] Mar, [facility] [place] [facility] [address] [id number] [place] [address] Mar, [facility] [place] [facility] [address] [id number] [place] [address] Feb, [facility] [place] [facility] [address] [id number] [place] [address] Feb, [facility] [place] [facility] [address] [id number] [place] [address] Feb, [facility] [place] [facility] [address] [id number] [place] [address] Feb, [facility] [place] [facility] [address] [id number] [place] [address] Feb, [facility] [place] [facility] [address] [id number] [place] [address] Feb, [facility] [place] [facility] [address] [id number] [place] [address] Jan, [facility] [place] [facility] [address] [id number] [place] [address] Jan, [facility] [place] [facility] [address] [id number] [address] 08 Jan, 2014 [facility] [place] [facility] [address] [id number] [place] [address] 08 Jan, 2014 [facility] [place] [facility] [address] [id number] [place] [address] Jan, [facility] [place] [facility] [address] [id number] [place] [address] Jan, [facility] [place] [facility] [address] [id number] [place] [address] 29 Dec, 2013 [facility] [place] [facility] [address] [id number] [place] [address] 29 Dec, 2013 [facility] [place] [facility] [address] [id number] [place] [address] 26 Dec, 2013 [facility] [place] [facility] [address] [id number] [place] [address] Dec, 2013 [facility] [place] [facility] [address] [id number] [place] [address] Dec, 2013 [facility] [place] [facility] [address] [id number] [place] [address] 08 Dec, 2013 [facility] [place] [facility] [address] [id number] [place] [address] 08 Dec, 2013 [facility] [place] [facility] [address] [id number], [place] [address] 08 Dec, 2013 [facility] [place] [facility] [address] [id number], [place] [address] 08 Dec, 2013 [facility] [place] [facility] [address] [id number] [place] [address] Dec, 2013 [facility] [place] [facility] [address] [id number] [place] [address] Dec, 2013 [facility] [place] [facility] [address] [id number] [place] [address] Nov, [facility] [place] [facility] [address] [id number] [place] [address] Nov, [facility] [place] [facility] [address] [id number] [place] [address] Nov, [facility] [place] [facility] [address] [id number] [place] [address] Nov, [facility] [place] [facility] [address] [id number] [place] [address] Nov, [facility] [place] [facility] [address] [id number] [place] [address] Nov, [facility] [place] [facility] [address] [id number] [place] [address] Nov, [facility] [place] [facility] [address] [id number] [place] [address] Nov, [facility] [place] [facility] [address] [id number] [place] [address] Nov, [facility] [place] [facility] [address] [id number] [place] [address] Nov, [facility] [place] [facility] [address] [id number] [place] [address] Oct, [facility] [place] [facility] [address] [id number] [place] [address] Oct, [facility] [place] [facility] [address] [id number] [place] [address] Oct, [facility] [place] [facility] [address] [id number] [place] [address] Oct, [facility] [place] [facility] [address] [id number] [place] [address] Oct, [facility] [place] [facility] [address] [id number] [place] [address] Oct, [facility] [place] [facility] [address] [id number] [place] [address] Oct, [facility] [place] [facility] [address] [id number] [place] [address] Oct, [facility] [place] [facility] [address] [id number] [place] [address] Oct, [facility] [place] [facility] [address] [id number] [place] [address] Oct, [facility] [place] [facility] [address] [id number] [place] [address] Oct, [facility] [place] [facility] [address] [id number] [place] [address] Oct, [facility] [place] [facility] [address] [id number] [place] [address] Oct, [facility] [place] [facility] [address] [id number] [place] [address] Sep, [facility] [place] [facility] [address] [id number] [place] [address] Sep, [facility] [place] [facility] [address] [id number] [place] [address] Sep, [facility] [place] [facility] [address] [id number] [place] [address] Sep, [facility] [place] [facility] [address] [id number] [place] [address] August, [facility] [place] [facility] [address] [id number] [place] [address] August, [facility] [place] [facility] [address] [id number] [place] [address] August, [facility] [place] [facility] [address] [id number] [place] [address] August, [facility] [place] [facility] [address] [id number] [place] [address] August, [facility] [place] [facility] [address] [id number] [place] [address] August, [facility] [place] [facility] [address] [id number] [place] [address] August, [facility] [place] [facility] [address] [id number] [place] [address] August, [facility] [place] [facility] [address] [id number] [place] [address] Jul, [facility] [place] [facility] [address] [id number] [place] [address] Jul, [facility] [place] [facility] [address] [id number] [place] [address] Jun, [facility] [place] [facility] [address] [id number] [place] [address] Jun, [facility] [place] [facility] [address] [facility] [id number] [place] [address] Jun, [facility] [place] [facility] [address] [id number] [place] [address] Jun, [facility] [place] [facility] [address] [id number] [place] [address] Jun, [facility] [place] [facility] [address] [facility] [id number] [place] [address] Jun, [facility] [address] [id number] [place] [address] May, [facility] [place] [facility] [address] [id number] [place] [address] May, [facility] [place] [facility] [address] [id number] [place] [address] May, [facility] [place] [facility] [address] [id number] [place] [address] May, [facility] [place] [facility] [address] [id number] [place] [address] May, [facility] [place] [facility] [address] [id number] [place] [address] 07 May, 2013 [facility] [place] [facility] [address] [id number] [place] [address] Apr, [facility] [place] [facility] [address] [id number] [place] [address] Apr, [facility] [place] [facility] [address] [id number] [place] [address] 15 Feb, 2013 [facility] [place] [facility] [address] [id number] [place] [address] 15 Feb, 2013 [facility] [place] [facility] [address] [id number] [place] [address] Feb, [facility] [place] [facility] [address] [id number] [place] [address] 15 Feb, 2013 [facility] [place] [facility] [address] [id number] [place] [address] Feb, [facility] [place] [facility] [address] [id number] [place] [address] Feb, [facility] [place] [facility] [address] [id number], [place] [address] Feb, [facility] [place] [facility] [address] [id number] [place] [address] Feb, [facility] [place] [facility] [address] [id number], [place] [address] 08 Feb, 2013 [facility] [place] [facility] [address] [id number], [place] [address] Jan, [facility] [place] [facility] [address] [id number] [place] [address] 27 Jan, 2013 [facility] [place] [facility] [address] [id number], [place] [address] 10 Jan, 2013 [facility] [place] [facility] [address] [id number], [place] [address] Jan, [facility] [place] [facility] [address] [id number] [place] [address] Jan, [facility] [place] [facility] [address] [id number] [place] [address] Jan, [facility] [place] [facility] [address] [id number] [place] [address] Dec, [facility] [place] [facility] [address] [id number] [place] [address] Dec, [facility] [facility] [address] [id number] [place] [address] 05 Dec, 2012 [facility] [place] [facility] [address] [id number] [place] [address] Dec, [facility] [place] [facility] [address] [id number] [place] [address] Oct, [facility] [place] [facility] [address] [id number] [place] [address] Oct, [facility] [place] [facility] [address] [id number] [place] [address] Oct, [facility] [place] [facility] [address] [id number] [place] [address] Oct, [facility] [place] [facility] [address] [id number] [place] [address] Oct, [facility] [place] [facility] [address] [id number] [place] [address] Sep, [facility] [place] [facility] [address] [id number] [place] [address] August, [facility] [place] [facility] [address] [id number] [place] [address] August, [facility] [place] [facility] [address] [id number] [place] [address] August, [facility] [place] [facility] [address] [id number] [place] [address] August, [facility] [address] [id number] [place] [address] August, [facility] [address] [id number] [place] [address] August, [facility] [address] [id number] [place] [address] August, [facility] [address] [id number] [place] [address] August, [facility] [address] [id number] [place] [address] August, [facility] [address] [id number] [place] [address] August, [facility] [address] [id number] [place] [address] August, [facility] [address] [id number] [place] [address] August, [facility] [address] [id number] [place] [address] Jun, [facility] [address] [id number] [place] [address] Jun, [facility] [address] [id number] [place] [address] Jun, [facility] [address] [id number] [place] [address] May, [facility] [address] [id number] [place] [address] May, [facility] [address] [id number] [place] [address] Mar, [facility] [address] [id number] [place] [address] Mar, [facility] [place] [facility] [address] [id number] [place] [address] Feb, [facility] [place] [facility] [address] [id number] [place] [address] Feb, [facility] [place] [facility] [address] [id number] [place] [address] Feb, [facility] [place] [facility] [address] [id number] [place] [address] Feb, [facility] [place] [facility] [address] [id number] [place] [address] Dec, [facility] [place] [facility] [address] [id number] [place] [address] August, [facility] [place] [facility] [address] [facility] [id number] [place] [address] Jul, [facility] [place] [facility] [address] [id number] [place] [address] 05 Jul, 2011 [facility] [place] [facility] [address] [id number] [place] [address] Jun, [facility] [place] [facility] [address] [id number], [place] [address] Jun, [facility] [place] [facility] [address] [id number], [place] [address] Jun, [facility] [facility] [address] [id number], [place] [address] Jun, [facility] [address] [id number] [place] [address] Jun, [facility] [address] [id number], [place] [address] May, [facility] [address] [id number] [place] [address] May, [facility] [address], [place] [address] 14 May, 2011 [facility] [id number] [place] [address] May, [facility] [id number] [address] Apr, [facility] [id number] [place] [address] Apr, [facility] [id number] [place] [address] Apr, [facility] [id number] [place] [address] Mar, [facility] [id number] [place] [address] Mar, [facility] [id number] [place] [address] Mar, [facility] [address] [address] Mar, [facility] [id number] [place] [address] May, [facility] [address] [address] Feb, [facility] [address] [address] Feb, [facility] [address], [place] [address] Jan, [facility] [address] [address] Jan, IMMUNIZATIONS No Known Immunizations SOCIAL HISTORY Never Assessed REASON FOR VISIT medication refill PLAN OF CARE VITAL SIGNS MEDICATIONS Unknown [...]
--- OUTSIDE RECORDS SUMMARY | 2018-09-19 01:38 | XMS REPORT ---
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 Phone SAMMY ARZATE CP Unavailable Allergies No Known Allergies Problems Problem Type Condition Code Onset Dates Condition Status Problem Major depressive disorder, recurrent episode, moderate 296.32 Active Problem Other chronic nonalcoholic liver disease 571.8 Active Problem Diaphragmatic hernia without mention of obstruction or gangrene 553.3 Active Problem Family history of other malignant neoplasm V16.49 Active Problem Cervicalgia 723.1 Active Problem Umbilical hernia without mention of obstruction or gangrene 553.1 Active Problem Memory loss 780.93 Active Problem Family history of diabetes mellitus V18.0 Active Problem Other malaise and fatigue 780.79 Active Problem Other abnormal glucose 790.29 Active Problem Lumbago 724.2 Active Problem Unspecified neuralgia, neuritis, and radiculitis 729.2 Active Problem Abdominal pain, right lower quadrant 789.03 Active Problem Other abnormal blood chemistry 790.6 Active Problem Depressive disorder, not elsewhere classified 311 Active Problem 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 Problem Unspecified otalgia 388.70 Active Problem Osteoarthritis, unspecified osteoarthritis type, unspecified site M19.90 Active Problem Abdominal pain, generalized 789.07 Active Problem Anxiety state, unspecified 300.00 Active Problem Other postprocedural status V45.89 Active Problem Esophageal reflux 530.81 Active Problem Chest pain, unspecified 786.50 Active Problem Panic disorder without agoraphobia 300.01 Active Problem Essential hypertension, benign 401.1 Active Problem Umbilical hernia with obstruction 552.1 Active Problem Major depressive disorder, recurrent episode, severe, without mention of psychotic behavior 296.33 Active Problem Abnormal involuntary movements 781.0 Active Problem Family history of other cardiovascular diseases V17.49 Active Problem Abdominal pain, epigastric 789.06 Active Problem Family history of malignant neoplasm of gastrointestinal tract V16.0 Active Medications Medication Code System Code Instructions Start Date End Date Status Dosage Xanax [facility] [address]-32 1 MG Orally Twice a day July 20, 2014 1 tablet Results No Known Results Summary Purpose eClinicalWorks Submission
--- OUTSIDE RECORDS SUMMARY | 2018-09-19 01:38 | XMS REPORT ---
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 Role Phone SAMMY ARZATE Unavailable PROBLEMS Type Condition ICD9-CM Code [id number] Code Onset Dates Condition Status SNOMED Code Problem Family history of other malignant neoplasm V16.49 Active 754591520 Problem Diaphragmatic hernia without mention of obstruction or gangrene 553.3 Active 79990983 Problem Umbilical hernia without mention of obstruction or gangrene 553.1 Active 557188586 Problem Cervicalgia 723.1 Active 25885030 Problem Family history of diabetes mellitus V18.0 Active 311544836 Problem Other abnormal glucose 790.29 Active 476036463 Problem Abdominal pain, generalized 789.07 Active 908220690 Problem Unspecified otalgia 388.70 Active 21973921 Problem 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 43029495 Problem Other postprocedural status V45.89 Active 64523729 Problem Umbilical hernia with obstruction 552.1 Active 607002954 Problem Anxiety state, unspecified 300.00 Active 309713186 Problem Major depressive disorder, recurrent episode, severe, without mention of psychotic behavior 296.33 Active 35097429 Problem Chest pain, unspecified 786.50 Active 43556545 Problem Depressive disorder, not elsewhere classified 311 Active 98401669 Problem Esophageal reflux 530.81 Active 772279650 Problem Gastroesophageal reflux disease without esophagitis K21.9 Active 809218530 Problem Other chronic pain G89.29 Active 72428958 Problem Abdominal pain, epigastric 789.06 Active 90284413 Problem Essential hypertension, benign 401.1 Active 3048892 Problem Panic disorder without agoraphobia 300.01 Active 32707700 Problem 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 Active 081374266 Problem Other abnormal blood chemistry 790.6 Active 032890030 Problem Osteoarthritis, unspecified osteoarthritis type, unspecified site M19.90 Active 786719914 Problem 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 Active 539137430 Problem Major depressive disorder, recurrent episode, moderate 296.32 Active 28960398 Problem Family history of other cardiovascular diseases V17.49 Active 294961156 Problem Other chronic nonalcoholic liver disease 571.8 Active 23203824 Problem Memory loss 780.93 Active 53446041 Problem Family history of malignant neoplasm of gastrointestinal tract V16.0 Active 147205749 Problem Abnormal involuntary movements 781.0 Active 323672808 Problem Abdominal pain, right lower quadrant 789.03 Active 764818630 Problem Unspecified neuralgia, neuritis, and radiculitis 729.2 Active 34782714 Problem Other malaise and fatigue 780.79 Active 609727905 Problem Lumbago 724.2 Active 287445174 ALLERGIES Unknown Allergies SOCIAL HISTORY No smoking Hx information available PLAN OF CARE VITAL SIGNS MEDICATIONS Medication Instructions Dosage Frequency Start Date End Date Duration Status Oxycodone HCl 10 mg Orally Once a day 1 tablet 24h 14 Mar, 2016 28 days Active RESULTS No Results PROCEDURES No Known procedures IMMUNIZATIONS No Known Immunizations
--- OUTSIDE RECORDS SUMMARY | 2018-09-19 01:38 | XMS REPORT ---
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 Role Phone SAMMY ARZATE Unavailable PROBLEMS Type Condition ICD9-CM Code [id number] Code Onset Dates Condition Status SNOMED Code Problem Gastroesophageal reflux disease without esophagitis K21.9 Active 156093058 Problem Other chronic pain G89.29 Active 21605360 Problem 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 Active 090060209 Problem Osteoarthritis, unspecified osteoarthritis type, unspecified site M19.90 Active 886900657 Problem 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 Active 457109314 ALLERGIES Substance Reaction Event Type Date Status Remeron Unknown Drug Allergy Jul, Active Bentyl 20 Mg Tablet Unknown Non Drug Allergy Jul, Active Ranitidine Hcl 150 Mg Tablet Unknown Non Drug Allergy Jul, Active SOCIAL HISTORY Never Assessed PLAN OF CARE Activity Details Follow Up 3 Months Reason:pain mgmt VITAL SIGNS Height 73 in 2016-08-21 Weight 220.1 lbs 2016-08-21 Temperature 97.8 degrees Fahrenheit 2016-08-21 Heart Rate 64 bpm 2016-08-21 Respiratory Rate 18 2016-08-21 BMI 29.04 kg/m2 2016-08-21 Blood pressure systolic 124 mmHg 2016-08-21 Blood pressure diastolic 78 mmHg 2016-08-21 MEDICATIONS Medication Instructions Dosage Frequency Start Date End Date Duration Status Rapaflo 8 MG Orally Once a day 1 capsule with a meal 24h Active Nexium 40 mg Orally Once a day 1 capsule 24h 90 days Active Xanax 1 MG Orally Twice a day 1 tablet 12h Jun, 28 days Active Oxycodone HCl 10 MG Orally Once a day 1 tablet 24h Jul, 28 days Active ProAir HFA 108 (90 Base) MCG/ACT Inhalation every 6hrs 2 puffs as needed 30 days Active Cyclobenzaprine HCl 10 MG Orally Three times a day 1 tablet as needed 8h Active Pennsaid 2 % Transdermal twice a day 2 applications to affected area 12h 10 Sep, 2015 Active RESULTS No Results PROCEDURES Procedure Date Ordered Result Body Site [facility] VISIT ESTABLISHED PATIENT August 21, 2016 IMMUNIZATIONS No Known Immunizations MEDICAL (GENERAL) HISTORY [...]
--- OUTSIDE RECORDS SUMMARY | 2018-09-19 01:38 | XMS REPORT ---
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 Name Role Phone SAMMY ARZATE CP Unavailable Allergies No Known Allergies Problems Problem Type Condition Code Onset Dates Condition Status Problem Major depressive disorder, recurrent episode, moderate 296.32 Active Problem Diaphragmatic hernia without mention of obstruction or gangrene 553.3 Active Problem Other chronic nonalcoholic liver disease 571.8 Active Problem Family history of other malignant neoplasm V16.49 Active Problem Cervicalgia 723.1 Active Problem Umbilical hernia without mention of obstruction or gangrene 553.1 Active Problem Family history of diabetes mellitus V18.0 Active Problem Other abnormal glucose 790.29 Active Problem Lumbago 724.2 Active Problem Abdominal pain, generalized 789.07 Active Problem Abdominal pain, right lower quadrant 789.03 Active Problem Unspecified otalgia 388.70 Active Problem Unspecified neuralgia, neuritis, and radiculitis 729.2 Active Problem Anxiety state, unspecified 300.00 Active Problem Other postprocedural status V45.89 Active Problem 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 Active Problem 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 Active Problem Major depressive disorder, recurrent episode, severe, without mention of psychotic behavior 296.33 Active Problem Umbilical hernia with obstruction 552.1 Active Problem Osteoarthritis, unspecified osteoarthritis type, unspecified site M19.90 Active Problem 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 Problem Esophageal reflux 530.81 Active Problem Chest pain, unspecified 786.50 Active Problem Other abnormal blood chemistry 790.6 Active Problem Depressive disorder, not elsewhere classified 311 Active Problem Abdominal pain, epigastric 789.06 Active Problem Family history of malignant neoplasm of gastrointestinal tract V16.0 Active Problem Panic disorder without agoraphobia 300.01 Active Problem Essential hypertension, benign 401.1 Active Problem Memory loss 780.93 Active Problem Other malaise and fatigue 780.79 Active Problem Abnormal involuntary movements 781.0 Active Problem Family history of other cardiovascular diseases V17.49 Active Medications Medication Code System Code Instructions Start Date End Date Status Dosage Xanax [facility] [address]-67 1 MG Orally Twice a day July 20, 2014 1 tablet Results No Known Results Summary Purpose eClinicalWorks Submission
--- OUTSIDE RECORDS SUMMARY | 2018-09-19 01:38 | XMS REPORT ---
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 Active 585579643 Problem 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 Active 290589569 Problem Other chronic pain G89.29 Active 93120027 Problem Osteoarthritis, unspecified osteoarthritis type, unspecified site M19.90 Active 852862623 ALLERGIES No Information ENCOUNTERS Encounter Location Date Diagnosis [place] [id number] [place] [address] Jun, [place] [id number] [place] [address] Jun, Osteoarthritis, unspecified osteoarthritis type, unspecified site M19.90 [place] [id number] [place] [address] May, [place] [id number] [place] [address] May, Benign prostatic hyperplasia, unspecified whether lower urinary tract symptoms present N40.0 [place] [id number] [place] [address] May, Osteoarthritis, unspecified osteoarthritis type, unspecified site M19.90 [place] [id number] [place] [address] May, [place] [address], [place] [address] Apr, Other chronic pain G89.29 ; Family history of diabetes mellitus Z83.3 ; Forgetfulness R68.89 ; History of multiple concussions Z87.820 ; Gastroesophageal reflux disease without esophagitis K21.9 and Screening, lipid Z13.220 [place] [id number] [place] [address] Apr, Other chronic pain G89.29 ; Forgetfulness R68.89 ; History of multiple concussions Z87.820 ; Gastroesophageal reflux disease without esophagitis K21.9 ; Screening, lipid Z13.220 and Family history of diabetes mellitus Z83.3 [place] [id number] [place] [address] Apr, Osteoarthritis, unspecified osteoarthritis type, unspecified site M19.90 [place] [id number] [place] [address] Apr, Osteoarthritis, unspecified osteoarthritis type, unspecified site M19.90 [place] [id number] [place] [address] Apr, [place] [id number] [place] [address] Mar, Osteoarthritis, unspecified osteoarthritis type, unspecified site M19.90 [place] [id number] [place] [address] Feb, Osteoarthritis, unspecified osteoarthritis type, unspecified site M19.90 [place] [id number] [place] [address] Jan, Osteoarthritis, unspecified osteoarthritis type, unspecified site M19.90 [place] [id number] [place] [address] Dec, Osteoarthritis, unspecified osteoarthritis type, unspecified site M19.90 [place] [id number] [address] Dec, [facility] [id number] [place] [address] Nov, Encounter for screening for lipid disorder Z13.220 [facility] [id number] [address] Nov, Osteoarthritis, unspecified osteoarthritis type, unspecified site M19.90 ; Encounter for screening for lipid disorder Z13.220 and Other chronic pain G89.29 [facility] [id number] [address] Nov, Osteoarthritis, unspecified osteoarthritis type, unspecified site M19.90 [place] [id number] [address] Nov, [place] [id number] [place] [address] Nov, [facility] [id number] [place] [address] Oct, Osteoarthritis, unspecified osteoarthritis type, unspecified site M19.90 [place] [id number] [place] [address] Oct, Gastroesophageal reflux disease without esophagitis K21.9 [facility] [address], [place] [address] Sep, Osteoarthritis, unspecified osteoarthritis type, unspecified site M19.90 [facility] [address], [place] [address] August, Osteoarthritis, unspecified osteoarthritis type, unspecified site M19.90 [facility] [address], [place] [address] August, Osteoarthritis, unspecified osteoarthritis type, unspecified site M19.90 [facility] [address], [place] [address] Jul, Osteoarthritis, unspecified osteoarthritis type, unspecified site M19.90 and Gastroesophageal reflux disease without esophagitis K21.9 [facility] [id number] [place] [address] Jul, Osteoarthritis, unspecified osteoarthritis type, unspecified site M19.90 [facility] [id number] [place] [address] Jun, Ventral hernia without obstruction or gangrene K43.9 [facility] [id number] [place] [address] Jun, Osteoarthritis, unspecified osteoarthritis type, unspecified site M19.90 [facility] [id number] [place] [address] May, [facility] [id number] [place] [address] May, Osteoarthritis, unspecified osteoarthritis type, unspecified site M19.90 [facility] [id number] [place] [address] Apr, Osteoarthritis, unspecified osteoarthritis type, unspecified site M19.90 [facility] [id number] [place] [address] Mar, [facility] [id number] [place] [address] Mar, Osteoarthritis, unspecified osteoarthritis type, unspecified site M19.90 and Lumbago with sciatica, left side M54.42 [facility] [address] [place] [address] Feb, [facility] [id number] [place] [address] Feb, [facility] [address], [place] [address] Feb, Osteoarthritis, unspecified osteoarthritis type, unspecified site M19.90 [facility] [id number] [place] [address] Feb, [facility] [id number] [place] [address] Feb, Low back pain M54.5 and Other chronic pain G89.29 [facility] [id number] [place] [address] Feb, [facility] [address] [address] Jan, [facility] [id number] [place] [address] Jan, [facility] [address] [address] 24 Dec, 2015 Lumbago with sciatica, left side M54.42 [place] [address] [address] 15 Dec, 2015 Irritable bowel syndrome with both constipation and diarrhea K58.0 ; Screening, lipid Z13.220 ; Nocturia R35.1 ; Family history of diabetes mellitus Z83.3 and Dysuria R30.0 [place] [id number] [place] [address] 14 Dec, 2015 Irritable bowel syndrome with both constipation and diarrhea K58.0 ; Nocturia R35.1 ; Family history of diabetes mellitus Z83.3 ; Dysuria R30.0 and Screening, lipid Z13.220 [facility] [id number] [place] [address] 12 Dec, 2015 [facility] [id number] [place] [address] 07 Dec, 2015 [facility] [id number] [place] [address] 2015 Pain with swallowing R13.10 [facility] [id number] [place] [address] Nov, [facility] [address], [place] [address] Nov, [facility] [id number] [place] [address] Oct, [facility] [address], [place] [address] Sep, [facility] [id number] [place] [address] Sep, Osteoarthritis, unspecified osteoarthritis type, unspecified site M19.90 [facility] [address] [place] [address] 07 Sep, 2015 Back pain M54.9 [facility] [id number] [place] [address] 07 Sep, 2015 Lumbago with sciatica, right side M54.41 and Bilateral impacted cerumen H61.23 [facility] [address], [place] [address] Sep, [facility] [address] [place] [address] August, Bronchitis J40 [facility] [address], [place] [address] August, [facility] [address], [place] [address] August, [facility] [address], [place] [address] August, [facility] [address], [place] [address] Jul, [facility] [address], [place] [address] Jul, Back pain M54.9 [facility] [address], [place] [address] Jun, Degenerative disc disease at L5-S1 level M51.36 and Bronchitis J40 [facility] [id number] [place] [address] Jun, [facility] [id number] [place] [address] May, [facility] [id number] [place] [address] Apr, [facility] [id number] [place] [address] Mar, [facility] [id number] [place] [address] Mar, [facility] [id number] [place] [address] Feb, [facility] [id number] [place] [address] Jan, [facility] [id number] [place] [address] Dec, [facility] [id number] [place] [address] Nov, [facility] [id number] [place] [address] Oct, [facility] [id number] [place] [address] Oct, Right shoulder pain 719.41 [facility] [id number] [place] [address] Sep, [facility] [id number] [place] [address] Sep, Vertigo 780.4 and Elbow fracture, right 812.40 [facility] [id number] [place] [address] Sep, [facility] [id number] [place] [address] August, [facility] [place] [facility] [address] [id number] [place] [address] 14 Jul, 2014 [facility] [place] [facility] [address] [id number] [place] [address] Jul, [facility] [place] [facility] [address] [facility] [id number] [place] [address] Jun, [facility] [place] [facility] [address] [id number] [place] [address] Jun, [facility] [place] [facility] [address] [id number] [place] [address] Jun, [facility] [place] [facility] [address] [facility] [id number] [place] [address] Jun, [facility] [place] [facility] [address] [facility] [id number] [place] [address] Jun, [facility] [place] [facility] [address] [facility] [id number] [place] [address] Jun, [facility] [place] [facility] [address] [facility] [id number] [place] [address] May, [facility] [place] [facility] [address] [facility] [id number] [place] [address] May, [facility] [place] [facility] [address] [facility] [id number] [place] [address] May, [facility] [place] [facility] [address] [facility] [id number] [place] [address] May, [facility] [place] [facility] [address] [facility] [id number] [place] [address] May, [facility] [place] [facility] [address] [facility] [id number] [place] [address] May, [facility] [place] [facility] [address] [facility] [id number] [place] [address] Apr, [facility] [place] [facility] [address] [id number] [place] [address] Apr, [facility] [place] [facility] [address] [id number] [place] [address] Apr, [facility] [place] [facility] [address] [id number] [place] [address] Apr, [facility] [place] [facility] [address] [id number] [place] [address] Apr, [facility] [place] [facility] [address] [id number] [place] [address] Apr, [facility] [place] [facility] [address] [id number] [place] [address] Apr, [facility] [place] [facility] [address] [id number] [place] [address] Mar, [facility] [place] [facility] [address] [id number] [place] [address] Mar, [facility] [place] [facility] [address] [id number] [place] [address] Mar, [facility] [place] [facility] [address] [id number] [place] [address] Mar, [facility] [place] [facility] [address] [id number] [place] [address] Mar, [facility] [place] [facility] [address] [id number] [place] [address] 31 Mar, 2014 [facility] [place] [facility] [address] [id number] [place] [address] 30 Mar, 2014 [facility] [place] [facility] [address] [id number] [place] [address] 30 Mar, 2014 [facility] [place] [facility] [address] [id number] [place] [address] Mar, [facility] [place] [facility] [address] [id number] [place] [address] Mar, [facility] [place] [facility] [address] [id number] [place] [address] Mar, [facility] [place] [facility] [address] [id number] [place] [address] Mar, [facility] [place] [facility] [address] [id number] [place] [address] Mar, [facility] [place] [facility] [address] [id number] [place] [address] Mar, [facility] [place] [facility] [address] [id number] [place] [address] Mar, [facility] [place] [facility] [address] [id number] [place] [address] Feb, [facility] [place] [facility] [address] [id number] [place] [address] Feb, [facility] [place] [facility] [address] [id number] [place] [address] Feb, [facility] [place] [facility] [address] [id number] [place] [address] Feb, [facility] [place] [facility] [address] [id number] [place] [address] Feb, [facility] [place] [facility] [address] [id number] [place] [address] Feb, [facility] [place] [facility] [address] [id number] [address] Jan, [facility] [place] [facility] [address] [id number] [place] [address] Jan, [facility] [place] [facility] [address] [id number] [place] [address] Jan, [facility] [place] [facility] [address] [id number] [place] [address] Jan, [facility] [place] [facility] [address] [id number] [place] [address] 06 Jan, 2013 [facility] [place] [facility] [address] [id number] [place] [address] 06 Jan, 2013 [facility] [place] [facility] [address] [id number] [place] [address] 29 Dec, 2013 [facility] [place] [facility] [address] [id number] [place] [address] 29 Dec, 2013 [facility] [place] [facility] [address] [id number] [place] [address] 26 Dec, 2013 [facility] [place] [facility] [address] [id number] [place] [address] 11 Dec, 2013 [facility] [place] [facility] [address] [id number] [place] [address] Dec, 2013 [facility] [place] [facility] [address] [id number] [place] [address] 08 Dec, 2013 [facility] [place] [facility] [address] [id number] [place] [address] 08 Dec, 2013 [facility] [place] [facility] [address] [id number] [place] [address] 08 Dec, 2013 [facility] [place] [facility] [address] [id number] [place] [address] 08 Dec, 2013 [facility] [place] [facility] [address] [id number] [place] [address] 04 Dec, 2013 [facility] [place] [facility] [address] [id number] [place] [address] Dec, 2013 [facility] [place] [facility] [address] [id number] [place] [address] Nov, [facility] [place] [facility] [address] [id number] [place] [address] Nov, [facility] [place] [facility] [address] [id number] [place] [address] Nov, [facility] [place] [facility] [address] [id number] [place] [address] Nov, [facility] [place] [facility] [address] [id number] [place] [address] Nov, [facility] [place] [facility] [address] [id number] [place] [address] Nov, [facility] [place] [facility] [address] [id number] [place] [address] Nov, [facility] [place] [facility] [address] [id number] [place] [address] Nov, [facility] [place] [facility] [address] [id number] [place] [address] Nov, [facility] [place] [facility] [address] [id number] [place] [address] Nov, [facility] [place] [facility] [address] [id number] [place] [address] Oct, [facility] [place] [facility] [address] [id number] [place] [address] Oct, [facility] [place] [facility] [address] [id number] [place] [address] Oct, [facility] [place] [facility] [address] [id number] [place] [address] Oct, [facility] [place] [facility] [address] [id number] [place] [address] Oct, [facility] [place] [facility] [address] [id number] [place] [address] Oct, [facility] [place] [facility] [address] [id number] [place] [address] Oct, [facility] [place] [facility] [address] [id number] [place] [address] Oct, [facility] [place] [facility] [address] [id number] [place] [address] Oct, [facility] [place] [facility] [address] [id number] [place] [address] Oct, [facility] [place] [facility] [address] [id number] [place] [address] Oct, [facility] [place] [facility] [address] [id number] [place] [address] Oct, [facility] [place] [facility] [address] [id number] [place] [address] Oct, [facility] [place] [facility] [address] [id number] [place] [address] Sep, [facility] [place] [facility] [address] [id number] [place] [address] Sep, [facility] [place] [facility] [address] [id number] [place] [address] Sep, [facility] [place] [facility] [address] [id number] [place] [address] Sep, [facility] [place] [facility] [address] [id number] [place] [address] August, [facility] [place] [facility] [address] [id number] [place] [address] August, [facility] [place] [facility] [address] [id number] [place] [address] August, [facility] [place] [facility] [address] [id number] [place] [address] August, [facility] [place] [facility] [address] [id number] [place] [address] August, [facility] [place] [facility] [address] [id number] [place] [address] August, [facility] [place] [facility] [address] [id number] [place] [address] August, [facility] [place] [facility] [address] [id number] [place] [address] August, [facility] [place] [facility] [address] [id number] [place] [address] Jul, [facility] [place] [facility] [address] [id number] [place] [address] Jul, [facility] [place] [facility] [address] [id number] [place] [address] Jun, [facility] [place] [facility] [address] [id number] [place] [address] Jun, [facility] [place] [facility] [address] [id number] [place] [address] Jun, [facility] [place] [facility] [address] [id number] [place] [address] Jun, [facility] [place] [facility] [address] [id number] [place] [address] Jun, [facility] [place] [facility] [address] [id number] [place] [address] Jun, [facility] [place] [facility] [address] [id number] [place] [address] May, [facility] [place] [facility] [address] [id number] [place] [address] May, [facility] [place] [facility] [address] [id number] [place] [address] May, [facility] [place] [facility] [address] [id number] [place] [address] May, [facility] [place] [facility] [address] [id number] [place] [address] May, [facility] [place] [facility] [address] [id number] [place] [address] May, [facility] [place] [facility] [address] [id number] [place] [address] Apr, [facility] [address] [id number] [place] [address] Apr, [facility] [place] [facility] [address] [id number] [place] [address] 15 Feb, 2013 [facility] [place] [facility] [address] [id number] [place] [address] 15 Feb, 2013 [facility] [place] [facility] [address] [id number] [place] [address] 15 Feb, 2013 [facility] [place] [facility] [address] [id number] [place] [address] 15 Feb, 2013 [facility] [place] [facility] [address] [id number] [place] [address] Feb, [facility] [place] [facility] [address] [id number] [place] [address] Feb, [facility] [place] [facility] [address] [id number] [place] [address] Feb, [facility] [place] [facility] [address] [id number] [place] [address] Feb, [facility] [place] [facility] [address] [id number] [place] [address] 08 Feb, 2013 [facility] [place] [facility] [address] [id number] [place] [address] Jan, [facility] [place] [facility] [address] [id number] [place] [address] Jan, [facility] [place] [facility] [address] [id number] [place] [address] 10 Jan, 2013 [facility] [place] [facility] [address] [id number] [place] [address] 06 Jan, 2013 [facility] [place] [facility] [address] [id number], [place] [address] 04 Jan, 2013 [facility] [place] [facility] [address] [id number] [place] [address] Jan, [facility] [address] [id number] [place] [address] Dec, [facility] [place] [facility] [address] [id number] [place] [address] Dec, [facility] [place] [facility] [address] [id number] [place] [address] Dec, [facility] [address] [id number] [place] [address] Dec, [facility] [place] [facility] [address] [id number] [place] [address] Oct, [facility] [address] [id number] [place] [address] Oct, [facility] [address] [id number] [place] [address] Oct, [facility] [address] [id number] [place] [address] Oct, [facility] [place] [facility] [address] [id number] [place] [address] Oct, [facility] [place] [facility] [address] [id number] [place] [address] Sep, [facility] [place] [facility] [address] [id number] [place] [address] August, [facility] [place] [facility] [address] [id number] [place] [address] August, [facility] [place] [facility] [address] [id number] [place] [address] August, [facility] [place] [facility] [address] [id number] [place] [address] August, [facility] [place] [facility] [address] [id number] [place] [address] August, [facility] [address] [id number] [place] [address] August, [facility] [address] [id number] [place] [address] August, [facility] [address] [id number] [place] [address] August, [facility] [address] [id number] [place] [address] August, [facility] [address] [id number] [place] [address] August, [facility] [address] [id number] [place] [address] August, [facility] [address] [id number] [place] [address] August, [facility] [address] [id number] [place] [address] Jun, [facility] [address] [id number] [place] [address] Jun, [facility] [address] [id number] [place] [address] Jun, [facility] [address] [id number] [place] [address] May, [facility] [address] [id number] [place] [address] May, [facility] [address] [id number] [place] [address] Mar, [facility] [place] [facility] [address] [id number] [place] [address] Mar, [facility] [place] [facility] [address] [id number] [place] [address] Feb, [facility] [address] [id number] [place] [address] Feb, [facility] [address] [id number] [place] [address] Feb, [facility] [place] [facility] [address] [id number] [place] [address] Feb, [facility] [address] [id number] [place] [address] Dec, [facility] [address] [id number] [place] [address] August, [facility] [address] [id number] [place] [address] Jul, [facility] [address] [id number] [place] [address] Jul, [facility] [address] [id number] [place] [address] Jun, [facility] [address] [id number] [place] [address] Jun, [facility] [address] [id number] [place] [address] Jun, [facility] [address] [id number] [place] [address] Jun, [facility] [place] [facility] [address] [id number] [place] [address] Jun, [facility] [address] [id number] [place] [address] May, [facility] [place] [facility] [address] [id number] [place] [address] May, [facility] [place] [facility] [address] [id number] [place] [address] 14 May, 2011 [facility] [place] [facility] [address] [id number] [place] [address] May, [facility] [address] [id number] [address] Apr, [facility] [address] [place] [address] Apr, [facility] [address] [place] [address] Apr, [facility] [address] [id number] [address] Mar, [facility] [address] [place] [address] Mar, [facility] [id number] [place] [address] Mar, [facility] [address] [place] [address] Mar, [facility] [address] [place] [address] May, [facility] [address] [place] [address] Feb, [facility] [address] [place] [address] Feb, [facility] [address] [place] [address] Jan, [facility] [address] [place] [address] Jan, IMMUNIZATIONS No Known Immunizations SOCIAL HISTORY Never Assessed REASON FOR VISIT Controlled Med Refill PLAN OF CARE VITAL SIGNS MEDICATIONS Medication Instructions Dosage Frequency Start Date End Date Duration Status Xanax 1 MG Orally Twice a day 1 tablet 12h Jun, 28 days Active Oxycodone HCl 10 MG Orally Once a day 1 tablet 24h 27 Sep, 2016 28 days Active RESULTS No Results [...]
--- OUTSIDE RECORDS SUMMARY | 2018-09-19 01:39 | XMS REPORT ---
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 Active 955266031 Problem 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 Active 075436647 Problem Other chronic pain G89.29 Active 10139890 Problem Osteoarthritis, unspecified osteoarthritis type, unspecified site M19.90 Active 078522857 ALLERGIES No Information ENCOUNTERS Encounter Location Date Diagnosis [place] [address] [address] August, Other chronic pain G89.29 and Other specified personal risk factors, not elsewhere classified Z91.89 [place] [address] [place] [id number] [place] [address] August, Osteoarthritis, unspecified osteoarthritis type, unspecified site M19.90 [place] [address] [address] Jul, Osteoarthritis, unspecified osteoarthritis type, unspecified site M19.90 [place] [address] [address] Jun, Osteoarthritis, unspecified osteoarthritis type, unspecified site M19.90 [place] [address] [address] Jun, [place] [address] [address] Jun, Osteoarthritis, unspecified osteoarthritis type, unspecified site M19.90 [place] [address] [address] May, [place] [address] [address] May, Benign prostatic hyperplasia, unspecified whether lower urinary tract symptoms present N40.0 [place] [id number] [place] [address] May, Osteoarthritis, unspecified osteoarthritis type, unspecified site M19.90 [place] [id number] [place] [address] May, [place] [address] [place] [address] Apr, Other chronic pain G89.29 ; Family history of diabetes mellitus Z83.3 ; Forgetfulness R68.89 ; History of multiple concussions Z87.820 ; Gastroesophageal reflux disease without esophagitis K21.9 and Screening, lipid Z13.220 [place] [address] [address] Apr, Other chronic pain G89.29 ; Forgetfulness R68.89 ; History of multiple concussions Z87.820 ; Gastroesophageal reflux disease without esophagitis K21.9 ; Screening, lipid Z13.220 and Family history of diabetes mellitus Z83.3 [place] [address] [address] Apr, Osteoarthritis, unspecified osteoarthritis type, unspecified site M19.90 [place] [address] [address] Apr, Osteoarthritis, unspecified osteoarthritis type, unspecified site M19.90 [place] [address] [address] Apr, [place] [address] [address] Mar, Osteoarthritis, unspecified osteoarthritis type, unspecified site M19.90 [facility] [address] [address] Feb, Osteoarthritis, unspecified osteoarthritis type, unspecified site M19.90 [facility] [address] [address] Jan, Osteoarthritis, unspecified osteoarthritis type, unspecified site M19.90 [facility] [address] [address] Dec, Osteoarthritis, unspecified osteoarthritis type, unspecified site M19.90 [facility] [address] [address] Dec, [place] [address] [place] [id number] [place] [address] Nov, Encounter for screening for lipid disorder Z13.220 [facility] [address] [address] Nov, Osteoarthritis, unspecified osteoarthritis type, unspecified site M19.90 ; Encounter for screening for lipid disorder Z13.220 and Other chronic pain G89.29 [facility] [address] [address] Nov, Osteoarthritis, unspecified osteoarthritis type, unspecified site M19.90 [facility] [address] [address] Nov, [facility] [address] [address] Nov, [facility] [address] [address] Oct, Osteoarthritis, unspecified osteoarthritis type, unspecified site M19.90 [facility] [address] [address] Oct, Gastroesophageal reflux disease without esophagitis K21.9 [facility] [address] [place] [id number] [place] [address] Sep, Osteoarthritis, unspecified osteoarthritis type, unspecified site M19.90 [facility] [address] [place] [id number] [place] [address] August, Osteoarthritis, unspecified osteoarthritis type, unspecified site M19.90 [place] [address] [place] [id number] [place] [address] August, Osteoarthritis, unspecified osteoarthritis type, unspecified site M19.90 [place] [address] [place] [id number] [place] [address] Jul, Osteoarthritis, unspecified osteoarthritis type, unspecified site M19.90 and Gastroesophageal reflux disease without esophagitis K21.9 [place] [address] [place] [id number] [place] [address] Jul, Osteoarthritis, unspecified osteoarthritis type, unspecified site M19.90 [place] [address] [place] [id number] [place] [address] Jun, Ventral hernia without obstruction or gangrene K43.9 [place] [address] [place] [id number] [place] [address] Jun, Osteoarthritis, unspecified osteoarthritis type, unspecified site M19.90 [place] [address] [place] [id number] [place] [address] May, [place] [address] [place] [id number] [place] [address] May, Osteoarthritis, unspecified osteoarthritis type, unspecified site M19.90 [facility] [address] [place] [id number] [place] [address] Apr, Osteoarthritis, unspecified osteoarthritis type, unspecified site M19.90 [place] [address] [place] [id number] [place] [address] Mar, [facility] [address] [place] [address] Mar, Osteoarthritis, unspecified osteoarthritis type, unspecified site M19.90 and Lumbago with sciatica, left side M54.42 [facility] [address] [place] [id number] [place] [address] Feb, [facility] [address] [place] [id number] [place] [address] Feb, [facility] [address] [place] [id number] [place] [address] Feb, Osteoarthritis, unspecified osteoarthritis type, unspecified site M19.90 [facility] [address] [place] [id number] [place] [address] Feb, [place] [address] [place] [id number] [place] [address] Feb, Low back pain M54.5 and Other chronic pain G89.29 [place] [address] [place] [id number] [place] [address] Feb, [facility] [address] [place] [id number] [place] [address] Jan, [facility] [address] [place] [id number] [place] [address] Jan, [facility] [address] [place] [id number] [place] [address] 24 Dec, 2015 Lumbago with sciatica, left side M54.42 [facility] [address] [place] [id number] [place] [address] 15 Dec, 2015 Irritable bowel syndrome with both constipation and diarrhea K58.0 ; Screening, lipid Z13.220 ; Nocturia R35.1 ; Family history of diabetes mellitus Z83.3 and Dysuria R30.0 [facility] [address] [place] [id number] [place] [address] 14 Dec, 2015 Irritable bowel syndrome with both constipation and diarrhea K58.0 ; Nocturia R35.1 ; Family history of diabetes mellitus Z83.3 ; Dysuria R30.0 and Screening, lipid Z13.220 [facility] [address] [place] [id number] [place] [address] 12 Dec, 2015 [facility] [address] [address] 07 Dec, 2015 [facility] [address] [place] [id number] [place] [address] Dec, Pain with swallowing R13.10 [place] [address] [address] Nov, [place] [address] [place] [id number] [place] [address] Nov, [facility] [address] [address] Oct, [place] [address] [place] [id number] [place] [address] Sep, [place] [address] [address] Sep, Osteoarthritis, unspecified osteoarthritis type, unspecified site M19.90 [place] [address] [place] [id number] [place] [address] Sep, Back pain M54.9 [place] [address] [place] [id number] [place] [address] Sep, Lumbago with sciatica, right side M54.41 and Bilateral impacted cerumen H61.23 [facility] [address] [place] [id number] [place] [address] Sep, [facility] [address] [place] [id number] [place] [address] August, Bronchitis J40 [place] [address] [address] August, [facility] [id number] [place] [address] August, [facility] [address] [address] August, [facility] [address] [place] [id number] [place] [address] Jul, [facility] [address] [place] [id number] [place] [address] Jul, Back pain M54.9 [facility] [address] [place] [id number] [place] [address] Jun, Degenerative disc disease at L5-S1 level M51.36 and Bronchitis J40 [facility] [address] [place] [id number] [place] [address] Jun, [facility] [address] [place] [id number] [address] May, [facility] [address] [place] [id number] [place] [address] Apr, [facility] [address] [place] [id number] [address] Mar, [facility] [address] [address] Mar, [facility] [address] [address] Feb, [facility] [address] [place] [address] Jan, [facility] [address] [place] [id number] [address] Dec, [facility] [address] [address] Nov, [facility] [address] [facility] [id number] [address] Oct, [facility] [address] [address] Oct, Right shoulder pain 719.41 [facility] [address] [address] Sep, [facility] [address] [place] [id number] [place] [address] Sep, Vertigo 780.4 and Elbow fracture, right 812.40 [facility] [address] [place] [id number] [place] [address] Sep, [facility] [address] [place] [id number] [address] August, [facility] [id number] [place] [address] Jul, [facility] [address] [address] Jul, [facility] [address] [address] Jun, [facility] [address] [address] Jun, [facility] [address] [place] [address] Jun, [facility] [address] [address] Jun, [facility] [address] [address] Jun, [facility] [address] [place] [id number] [address] Jun, [facility] [address] [address] May, [facility] [place] [facility] [address] [id number] [place] [address] May, [facility] [place] [facility] [address] [id number] [place] [address] May, [facility] [place] [facility] [address] [id number] [place] [address] May, [facility] [place] [facility] [address] [id number] [place] [address] May, [facility] [place] [facility] [address] [id number] [place] [address] May, [facility] [place] [facility] [address] [id number] [place] [address] Apr, [facility] [place] [facility] [address] [id number] [place] [address] Apr, [facility] [place] [facility] [address] [id number] [place] [address] Apr, [facility] [place] [facility] [address] [id number] [place] [address] Apr, [facility] [place] [facility] [address] [facility] [id number] [place] [address] Apr, [facility] [place] [facility] [address] [id number] [place] [address] Apr, [facility] [place] [facility] [address] [id number] [place] [address] Apr, [facility] [place] [facility] [address] [id number] [place] [address] Mar, [facility] [place] [facility] [address] [id number] [place] [address] Mar, [facility] [place] [facility] [address] [id number] [place] [address] Mar, [facility] [place] [facility] [address] [id number] [address] Mar, [facility] [place] [facility] [address] [id number] [place] [address] Mar, [facility] [place] [facility] [address] [id number] [place] [address] Mar, [facility] [place] [facility] [address] [facility] [id number] [place] [address] Mar, [facility] [place] [facility] [address] [id number] [place] [address] Mar, [facility] [place] [facility] [address] [id number] [place] [address] Mar, [facility] [place] [facility] [address] [id number] [place] [address] Mar, [facility] [place] [facility] [address] [facility] [id number] [place] [address] Mar, [facility] [place] [facility] [address] [id number] [place] [address] Mar, [facility] [place] [facility] [address] [id number] [place] [address] Mar, [facility] [place] [facility] [address] [facility] [id number] [place] [address] Mar, [facility] [place] [facility] [address] [id number] [place] [address] Mar, [facility] [place] [facility] [address] [id number] [place] [address] Feb, [facility] [place] [facility] [address] [id number] [place] [address] Feb, [facility] [place] [facility] [address] [facility] [id number] [place] [address] Feb, [facility] [place] [facility] [address] [facility] [id number] [place] [address] Feb, [facility] [place] [facility] [address] [id number] [place] [address] Feb, [facility] [place] [facility] [address] [id number] [place] [address] Feb, [facility] [place] [facility] [address] [id number] [place] [address] Jan, [facility] [place] [facility] [address] [id number] [place] [address] Jan, [facility] [place] [facility] [address] [id number] [place] [address] Jan, [facility] [place] [facility] [address] [id number] [place] [address] Jan, [facility] [place] [facility] [address] [id number] [place] [address] Jan, [facility] [place] [facility] [address] [id number] [place] [address] Jan, [facility] [place] [facility] [address] [id number] [place] [address] 29 Dec, 2013 [facility] [place] [facility] [address] [id number] [place] [address] 29 Dec, 2013 [facility] [place] [facility] [address] [id number] [place] [address] 26 Dec, 2013 [facility] [place] [facility] [address] [id number] [place] [address] 11 Dec, 2013 [facility] [place] [facility] [address] [id number] [place] [address] 11 Dec, 2013 [facility] [place] [facility] [address] [id number] [place] [address] 08 Dec, 2013 [facility] [place] [facility] [address] [id number] [place] [address] 08 Dec, 2013 [facility] [place] [facility] [address] [id number] [place] [address] Dec, [facility] [place] [facility] [address] [id number] [place] [address] Dec, [facility] [place] [facility] [address] [id number] [place] [address] Dec, [facility] [place] [facility] [address] [id number] [place] [address] Dec, [facility] [place] [facility] [address] [id number] [place] [address] Nov, [facility] [place] [facility] [address] [id number] [place] [address] Nov, [facility] [place] [facility] [address] [id number] [place] [address] Nov, [facility] [place] [facility] [address] [id number] [place] [address] Nov, [facility] [place] [facility] [address] [id number] [place] [address] Nov, [facility] [place] [facility] [address] [id number] [place] [address] Nov, [facility] [place] [facility] [address] [id number] [place] [address] Nov, [facility] [place] [facility] [address] [id number] [place] [address] Nov, [facility] [place] [facility] [address] [id number] [place] [address] Nov, [facility] [place] [facility] [address] [id number] [place] [address] Nov, [facility] [place] [facility] [address] [id number] [place] [address] Oct, [facility] [place] [facility] [address] [id number] [place] [address] Oct, [facility] [place] [facility] [address] [id number] [place] [address] Oct, [facility] [place] [facility] [address] [id number] [place] [address] Oct, [facility] [place] [facility] [address] [id number] [place] [address] Oct, [facility] [place] [facility] [address] [id number] [place] [address] Oct, [facility] [place] [facility] [address] [id number] [place] [address] Oct, [facility] [place] [facility] [address] [id number] [place] [address] Oct, [facility] [place] [facility] [address] [id number] [place] [address] Oct, [facility] [place] [facility] [address] [id number] [place] [address] Oct, [facility] [place] [facility] [address] [id number] [place] [address] Oct, [facility] [place] [facility] [address] [id number] [place] [address] Oct, [facility] [place] [facility] [address] [id number] [place] [address] Oct, [facility] [place] [facility] [address] [id number] [place] [address] Sep, [facility] [place] [facility] [address] [id number] [place] [address] Sep, [facility] [place] [facility] [address] [id number] [place] [address] Sep, [facility] [place] [facility] [address] [id number] [place] [address] Sep, [facility] [place] [facility] [address] [id number] [place] [address] August, [facility] [place] [facility] [address] [id number] [place] [address] August, [facility] [place] [facility] [address] [id number] [place] [address] August, [facility] [place] [facility] [address] [id number] [place] [address] August, [facility] [place] [facility] [address] [id number] [place] [address] August, [facility] [place] [facility] [address] [id number] [place] [address] August, [facility] [place] [facility] [address] [id number] [place] [address] August, [facility] [place] [facility] [address] [id number] [place] [address] August, [facility] [address] [id number] [place] [address] Jul, [facility] [place] [facility] [address] [id number] [place] [address] Jul, [facility] [place] [facility] [address] [id number] [place] [address] Jun, [facility] [place] [facility] [address] [id number] [place] [address] Jun, [facility] [place] [facility] [address] [id number] [place] [address] Jun, [facility] [place] [facility] [address] [id number] [place] [address] Jun, [facility] [place] [facility] [address] [id number] [place] [address] Jun, [facility] [place] [facility] [address] [id number] [place] [address] Jun, [facility] [place] [facility] [address] [id number] [place] [address] May, [facility] [place] [facility] [address] [id number] [place] [address] May, [facility] [place] [facility] [address] [id number] [place] [address] 14 May, 2013 [facility] [place] [facility] [address] [id number] [place] [address] 14 May, 2013 [facility] [place] [facility] [address] [id number] [place] [address] May, [facility] [place] [facility] [address] [id number] [place] [address] May, [facility] [place] [facility] [address] [id number] [place] [address] Apr, [facility] [place] [facility] [address] [id number] [place] [address] Apr, [facility] [place] [facility] [address] [id number] [place] [address] 15 Feb, 2013 [facility] [place] [facility] [address] [id number] [place] [address] 15 Feb, 2013 [facility] [place] [facility] [address] [facility] [id number] [place] [address] 15 Feb, 2013 [facility] [place] [facility] [address] [id number] [place] [address] 15 Feb, 2013 [facility] [place] [facility] [address] [id number] [place] [address] 13 Feb, 2013 [facility] [place] [facility] [address] [id number] [place] [address] 13 Feb, 2013 [facility] [place] [facility] [address] [id number] [place] [address] 11 Feb, 2013 [facility] [place] [facility] [address] [id number] [place] [address] 11 Feb, 2013 [facility] [place] [facility] [address] [id number] [place] [address] 08 Feb, 2013 [facility] [place] [facility] [address] [id number] [place] [address] Jan, 2012 [facility] [place] [facility] [address] [id number] [place] [address] Jan, 2012 [facility] [place] [facility] [address] [id number] [place] [address] Jan, [facility] [place] [facility] [address] [id number] [place] [address] Jan, [facility] [place] [facility] [address] [id number] [place] [address] Jan, [facility] [place] [facility] [address] [id number] [place] [address] Jan, [facility] [place] [facility] [address] [id number] [place] [address] 17 Dec, 2012 [facility] [place] [facility] [address] [id number] [place] [address] 12 Dec, 2012 [facility] [place] [facility] [address] [id number] [place] [address] 05 Dec, 2012 [facility] [place] [facility] [address] [id number] [place] [address] 05 Dec, 2012 [facility] [place] [facility] [address] [id number] [place] [address] Oct, [facility] [place] [facility] [address] [id number] [place] [address] Oct, [facility] [place] [facility] [address] [id number] [place] [address] Oct, [facility] [place] [facility] [address] [id number] [place] [address] Oct, 2012 [facility] [place] [facility] [address] [id number] [place] [address] Oct, [facility] [address] [id number] [place] [address] Sep, [facility] [address] [id number] [place] [address] August, [facility] [address] [id number] [place] [address] August, [facility] [address] [id number] [place] [address] August, [facility] [address] [id number] [place] [address] August, [facility] [address] [id number] [place] [address] August, [facility] [address] [id number] [place] [address] August, [facility] [address] [id number] [place] [address] August, [facility] [address] [id number] [place] [address] August, [facility] [address] [id number] [place] [address] August, [facility] [address] [id number] [place] [address] August, [facility] [place] [facility] [address] [id number] [place] [address] August, [facility] [place] [facility] [address] [id number] [place] [address] August, [facility] [place] [facility] [address] [id number] [place] [address] Jun, [facility] [place] [facility] [address] [id number] [place] [address] Jun, [facility] [address] [id number] [place] [address] Jun, [facility] [address] [id number] [place] [address] May, [facility] [address] [id number] [place] [address] May, [facility] [address] [id number] [place] [address] Mar, [facility] [address] [id number] [place] [address] Mar, [facility] [address] [id number] [place] [address] Feb, [facility] [address] [id number] [place] [address] Feb, [facility] [address] [id number] [place] [address] Feb, [facility] [address] [id number] [place] [address] Feb, [facility] [address] [id number] [place] [address] Dec, [facility] [address] [id number] [place] [address] August, [facility] [address] [id number] [place] [address] Jul, [facility] [address] [id number] [place] [address] 05 Jul, 2011 [facility] [address] [id number] [place] [address] 13 Jun, 2011 [facility] [address] [id number] [place] [address] 13 Jun, 2011 [facility] [address] [id number] [place] [address] Jun, [facility] [address] [id number] [place] [address] Jun, [facility] [place] [facility] [address] [id number] [place] [address] Jun, [facility] [address] [id number] [place] [address] May, [facility] [place] [facility] [address] [id number] [place] [address] May, [facility] [address] [id number] [place] [address] May, [facility] [address] [id number] [place] [address] May, [facility] [address] [facility] [id number] [place] [address] Apr, [facility] [place] [facility] [address] [id number] [place] [address] Apr, [facility] [address] [facility] [id number] [place] [address] Apr, [facility] [address] [facility] [id number] [place] [address] Mar, [facility] [place] [facility] [address] [facility] [id number] [place] [address] Mar, [facility] [place] [facility] [address] [id number] [place] [address] Mar, [facility] [place] [facility] [address] [id number] [place] [address] Mar, [facility] [place] [facility] [address] [id number] [place] [address] May, [facility] [place] [facility] [address] [id number] [place] [address] Feb, [facility] [place] [facility] [address] [facility] [id number] [place] [address] Feb, [facility] [address] [facility] [id number] [place] [address] Jan, [facility] [address] [facility] [id number] [place] [address] Jan, IMMUNIZATIONS No Known Immunizations SOCIAL HISTORY Never Assessed REASON FOR VISIT medication request PLAN OF CARE VITAL SIGNS MEDICATIONS Medication Instructions Dosage Frequency Start Date End Date Duration Status Rapaflo 8 MG Orally Once a day 1 capsule with a meal 24h 30 Active RESULTS No Results PROCEDURES No Known [...]
--- OUTSIDE RECORDS SUMMARY | 2018-09-19 01:39 | XMS REPORT ---
Author Author SAMMY ARZATE [facility] eClinicalWorks Address Unknown Phone Unavailable Care Team Providers Care Palm Gatherer Name Role Phone SAMMY ARZATE CP Unavailable Allergies, Adverse Reactions, Alerts Substance Reaction Event Type Remeron Info Not Available Drug Allergy Ranitidine Hcl 150 Mg Tablet Info Not Available Non Drug Allergy Bentyl 20 Mg Tablet Info Not Available Non Drug Allergy Problems Problem Type Condition Code Onset Dates Condition Status Assessment Back pain M54.9 Active Problem Major depressive disorder, recurrent episode, moderate [...] Instructions Start Date End Date Status Dosage Voltaren [facility] [address]-42 1 % Transdermal 3 times a day August 01, [address] [facility] [address]-50 1 MG Orally Twice a day July 20, 2014 1 tablet Oxycodone HCl [facility] [address]-46 10 MG Orally 3 times a day July 19, 2015 1 tablet as needed Ventolin HFA [facility] [address]-55 108 (90 Base) MCG/ACT Inhalation every 6 hrs 2 puffs as needed Cyclobenzaprine HCl [facility] [address]-83 10 MG Orally Three times a day 1 tablet as needed Rapaflo [facility] [id number] 8 MG TAKE ONE CAPSULE BY MOUTH DAILY Nexium [facility] 84975649198 40 MG TAKE ONE CAPSULE BY MOUTH ONCE DAILY Oxycodone-Acetaminophen [facility] [address]-40 7.5-325 MG Orally every 6 hrs has to last at least 2 mo August 01, 2015 1 tablet as needed ProAir HFA [facility] 01117060575 108 (90 Base) MCG/ACT INHALE TWO PUFFS BY MOUTH EVERY 6 HOURS NEEDED FOR COUGH OR WHEEZE Procedures Procedure Coding System Code Date Office Visit, Est Pt., Level 3 CPT-4 21830 August 01, 2015 Vital Signs Date/Time: August 01, 2015 Temperature 98.7 F Weight 214.3 lbs Height 73 in BMI 28.27 Index Blood Pressure Diastolic 60 mmHg Blood Pressure Systolic 110 mmHg Cardiac Monitoring Heart Rate 72 bpm Results No Known Results Summary Purpose eClinicalWorks Submission
--- OUTSIDE RECORDS SUMMARY | 2018-09-19 01:39 | XMS REPORT ---
Author Author RUPINDER ARZATE [facility] eClinicalWorks Address Unknown Phone Unavailable Care Team Providers Care Insulation Cutter And Former Name Role Phone RUPINDER ARZATE CP Unavailable Allergies No Known Allergies Problems Problem Type Condition ICD-9 Code Onset Dates Condition Status Problem Major [...] Start Date End Date Status Dosage Xanax [facility] [address]-31 1 MG July 20, 2014 1 tablet by Oral route 2 times per day Rx to be filled on 01/04/15 Rupinder will be out of clinic Results No Known Results Summary Purpose eClinicalWorks Submission
--- OUTSIDE RECORDS SUMMARY | 2018-09-19 01:40 | XMS REPORT ---
Author Author SAMMY ARZATE [facility] Address [address] [place] [address] Care Team Providers Care Developer Programmer Analyst Name Role Phone SAMMY ARZATE Unavailable PROBLEMS Type Condition ICD9-CM Code MVG99-MC Code Onset Dates Condition Status SNOMED Code Problem Family history of other malignant neoplasm V16.49 Active 332349082 Problem Diaphragmatic hernia without mention of obstruction or gangrene 553.3 Active 09363435 Problem Umbilical hernia without mention of obstruction or gangrene 553.1 Active 048310300 Problem Cervicalgia 723.1 Active 17620570 Problem Family history of diabetes mellitus V18.0 Active 171824744 Problem Other abnormal glucose 790.29 Active 081503123 Problem Abdominal pain, generalized 789.07 Active 197647135 Problem Unspecified otalgia 388.70 Active 18977558 Problem 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 28237765 Problem Other postprocedural status V45.89 Active 82416157 Problem Umbilical hernia with obstruction 552.1 Active 816885536 Problem Anxiety state, unspecified 300.00 Active 081130966 Problem Major depressive disorder, recurrent episode, severe, without mention of psychotic behavior 296.33 Active 28668461 Problem Chest pain, unspecified 786.50 Active 27410449 Problem Depressive disorder, not elsewhere classified 311 Active 24869181 Problem Esophageal reflux 530.81 Active 205137797 Problem Gastroesophageal reflux disease without esophagitis K21.9 Active 880733160 Problem Other chronic pain G89.29 Active 23672841 Problem Abdominal pain, epigastric 789.06 Active 99636267 Problem Essential hypertension, benign 401.1 Active 3321157 Problem Panic disorder without agoraphobia 300.01 Active 74560179 Problem 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 Active 472825251 Problem Other abnormal blood chemistry 790.6 Active 229206495 Problem Osteoarthritis, unspecified osteoarthritis type, unspecified site M19.90 Active 250046848 Problem 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 Active 776633767 Problem Major depressive disorder, recurrent episode, moderate 296.32 Active 30560646 Problem Family history of other cardiovascular diseases V17.49 Active 207114438 Problem Other chronic nonalcoholic liver disease 571.8 Active 40853247 Problem Memory loss 780.93 Active 47349609 Problem Family history of malignant neoplasm of gastrointestinal tract V16.0 Active 663481078 Problem Abnormal involuntary movements 781.0 Active 346923382 Problem Abdominal pain, right lower quadrant 789.03 Active 161523569 Problem Unspecified neuralgia, neuritis, and radiculitis 729.2 Active 85091446 Problem Other malaise and fatigue 780.79 Active 413633212 Problem Lumbago 724.2 Active 095604327 ALLERGIES Unknown Allergies SOCIAL HISTORY No smoking Hx information available PLAN OF CARE VITAL SIGNS MEDICATIONS Medication Instructions Dosage Frequency Start Date End Date Duration Status Xanax 1 MG Orally Twice a day 1 tablet 12h 25 Jun, 2014 14 days Active RESULTS No Results PROCEDURES No Known procedures IMMUNIZATIONS No Known Immunizations
--- OUTSIDE RECORDS SUMMARY | 2018-09-19 01:40 | XMS REPORT ---
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 Active 917462131 Problem 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 Active 516860321 Problem Other chronic pain G89.29 Active 65860432 Problem Osteoarthritis, unspecified osteoarthritis type, unspecified site M19.90 Active 020995983 ALLERGIES No Information ENCOUNTERS Encounter Location Date Diagnosis [place] [address] [address] Sep, [place] [address] [address] Sep, Osteoarthritis, unspecified osteoarthritis type, unspecified site M19.90 [place] [address] [address] [place] [id number] [place] [address] August, Other chronic pain G89.29 and Other specified personal risk factors, not elsewhere classified Z91.89 [place] [address] [address] August, Osteoarthritis, unspecified osteoarthritis type, unspecified site M19.90 [place] [address] [address] Jul, Osteoarthritis, unspecified osteoarthritis type, unspecified site M19.90 [place] [address], [place] [address] Jun, Osteoarthritis, unspecified osteoarthritis type, unspecified site M19.90 [place] [address] [place] [id number] [address] Jun, [place] [address] [place] [id number] [place] [address] Jun, Osteoarthritis, unspecified osteoarthritis type, unspecified site M19.90 [place] [address] [place] [id number] [place] [address] May, [place] [address] [place] [id number] [place] [address] May, Benign prostatic hyperplasia, unspecified whether lower urinary tract symptoms present N40.0 [place] [address] [place] [id number] [place] [address] May, Osteoarthritis, unspecified osteoarthritis type, unspecified site M19.90 [place] [address] [address] May, [place] [address] [place] [id number] [place] [address] Apr, Other chronic pain G89.29 ; Family history of diabetes mellitus Z83.3 ; Forgetfulness R68.89 ; History of multiple concussions Z87.820 ; Gastroesophageal reflux disease without esophagitis K21.9 and Screening, lipid Z13.220 [place] [address] [address] Apr, Other chronic pain G89.29 ; Forgetfulness R68.89 ; History of multiple concussions Z87.820 ; Gastroesophageal reflux disease without esophagitis K21.9 ; Screening, lipid Z13.220 and Family history of diabetes mellitus Z83.3 [place] [address], [place] [address] Apr, Osteoarthritis, unspecified osteoarthritis type, unspecified site M19.90 [place] [address], [place] [address] Apr, Osteoarthritis, unspecified osteoarthritis type, unspecified site M19.90 [facility] [address], [place] [address] Apr, [facility] [address], [place] [address] Mar, Osteoarthritis, unspecified osteoarthritis type, unspecified site M19.90 [facility] [address], [place] [address] Feb, Osteoarthritis, unspecified osteoarthritis type, unspecified site M19.90 [facility] [address], [place] [address] Jan, Osteoarthritis, unspecified osteoarthritis type, unspecified site M19.90 [place] [address], [place] [address] Dec, Osteoarthritis, unspecified osteoarthritis type, unspecified site M19.90 [facility] [address], [place] [address] Dec, [facility] [address], [place] [address] Nov, Encounter for screening for lipid disorder Z13.220 [facility] [address], [place] [address] Nov, Osteoarthritis, unspecified osteoarthritis type, unspecified site M19.90 ; Encounter for screening for lipid disorder Z13.220 and Other chronic pain G89.29 [facility] [address], [place] [address] Nov, Osteoarthritis, unspecified osteoarthritis type, unspecified site M19.90 [facility] [address], [place] [address] Nov, [facility] [address], [place] [address] Nov, [facility] [address], [place] [address] Oct, Osteoarthritis, unspecified osteoarthritis type, unspecified site M19.90 [facility] [address] [place] [id number] [place] [address] Oct, Gastroesophageal reflux disease without esophagitis K21.9 [facility] [address] [place] [id number] [place] [address] Sep, Osteoarthritis, unspecified osteoarthritis type, unspecified site M19.90 [place] [address] [place] [id number] [place] [address] August, Osteoarthritis, unspecified osteoarthritis type, unspecified site M19.90 [place] [address] [place] [id number] [place] [address] August, Osteoarthritis, unspecified osteoarthritis type, unspecified site M19.90 [place] [address] [place] [id number] [place] [address] Jul, Osteoarthritis, unspecified osteoarthritis type, unspecified site M19.90 and Gastroesophageal reflux disease without esophagitis K21.9 [place] [address] [place] [id number] [place] [address] Jul, Osteoarthritis, unspecified osteoarthritis type, unspecified site M19.90 [place] [address] [place] [id number] [place] [address] Jun, Ventral hernia without obstruction or gangrene K43.9 [facility] [address] [place] [id number] [address] Jun, Osteoarthritis, unspecified osteoarthritis type, unspecified site M19.90 [facility] [address] [place] [address] May, [facility] [address] [place] [id number] [address] May, Osteoarthritis, unspecified osteoarthritis type, unspecified site M19.90 [facility] [address], [place] [address] Apr, Osteoarthritis, unspecified osteoarthritis type, unspecified site M19.90 [facility] [address] [place] [address] Mar, [facility] [address] [place] [id number] [place] [address] Mar, Osteoarthritis, unspecified osteoarthritis type, unspecified site M19.90 and Lumbago with sciatica, left side M54.42 [facility] [address] [place] [id number] [place] [address] Feb, [facility] [address] [place] [id number] [place] [address] Feb, [facility] [address] [place] [id number] [place] [address] Feb, Osteoarthritis, unspecified osteoarthritis type, unspecified site M19.90 [facility] [address] [place] [id number] [place] [address] Feb, [facility] [address] [place] [id number] [place] [address] Feb, Low back pain M54.5 and Other chronic pain G89.29 [facility] [address] [place] [id number] [place] [address] Feb, [facility] [address] [place] [id number] [place] [address] Jan, [facility] [address] [place] [id number] [place] [address] Jan, [facility] [address] [place] [id number] [place] [address] Dec, Lumbago with sciatica, left side M54.42 [facility] [address] [place] [id number] [place] [address] 15 Dec, 2015 Irritable bowel syndrome with both constipation and diarrhea K58.0 ; Screening, lipid Z13.220 ; Nocturia R35.1 ; Family history of diabetes mellitus Z83.3 and Dysuria R30.0 [facility] [address] [place] [id number] [place] [address] 14 Dec, 2015 Irritable bowel syndrome with both constipation and diarrhea K58.0 ; Nocturia R35.1 ; Family history of diabetes mellitus Z83.3 ; Dysuria R30.0 and Screening, lipid Z13.220 [facility] [address] [place] [id number] [place] [address] 12 Dec, 2015 [place] [address] [place] [id number] [place] [address] 07 Dec, 2015 [facility] [address] [place] [id number] [place] [address] Dec, Pain with swallowing R13.10 [place] [address] [place] [id number] [place] [address] Nov, [place] [address] [place] [id number] [place] [address] Nov, [place] [address] [place] [id number] [place] [address] Oct, [place] [address] [place] [id number] [place] [address] Sep, [facility] [address] [place] [id number] [place] [address] Sep, Osteoarthritis, unspecified osteoarthritis type, unspecified site M19.90 [place] [address] [place] [id number] [place] [address] Sep, Back pain M54.9 [place] [address] [place] [id number] [place] [address] 07 Sep, 2015 Lumbago with sciatica, right side M54.41 and Bilateral impacted cerumen H61.23 [facility] [address], [place] [address] Sep, [facility] [address] [place] [id number] [place] [address] August, Bronchitis J40 [facility] [address] [place] [id number] [place] [address] August, [facility] [address] [place] [id number] [place] [address] August, [facility] [address] [place] [id number] [place] [address] August, [facility] [address] [place] [id number] [place] [address] Jul, [facility] [address] [place] [id number] [place] [address] Jul, Back pain M54.9 [facility] [address] [place] [id number] [place] [address] Jun, Degenerative disc disease at L5-S1 level M51.36 and Bronchitis J40 [facility] [address] [place] [id number] [place] [address] Jun, [facility] [id number] [place] [address] May, [facility] [id number] [place] [address] Apr, [facility] [id number] [place] [address] Mar, [facility] [address] [place] [id number] [place] [address] Mar, [facility] [id number] [place] [address] Feb, [facility] [address] [place] [id number] [place] [address] Jan, [facility] [address] [place] [id number] [address] Dec, [facility] [address] [place] [id number] [place] [address] Nov, [facility] [address] [place] [id number] [place] [address] Oct, [facility] [address] [place] [id number] [place] [address] Oct, Right shoulder pain 719.41 [facility] [address] [place] [id number] [place] [address] Sep, [facility] [address] [place] [id number] [place] [address] Sep, Vertigo 780.4 and Elbow fracture, right 812.40 [facility] [address] [place] [id number] [place] [address] Sep, [facility] [address] [place] [id number] [place] [address] August, [facility] [address] [place] [id number] [place] [address] Jul, [facility] [address], [place] [address] Jul, [facility] [id number] [place] [address] Jun, [facility] [address] [place] [id number] [address] Jun, [facility] [address] [place] [id number] [place] [address] Jun, [facility] [address], [place] [address] Jun, [facility] [address] [place] [id number] [place] [address] Jun, [facility] [place] [facility] [address] [id number] [place] [address] Jun, [facility] [place] [facility] [address] [id number] [place] [address] May, [facility] [place] [facility] [address] [id number] [place] [address] May, [facility] [place] [facility] [address] [id number] [place] [address] May, [facility] [place] [facility] [address] [id number] [place] [address] May, [facility] [place] [facility] [address] [facility] [id number] [place] [address] May, [facility] [place] [facility] [address] [facility] [id number] [place] [address] May, [facility] [place] [facility] [address] [facility] [id number] [place] [address] Apr, [facility] [place] [facility] [address] [facility] [id number] [place] [address] Apr, [facility] [place] [facility] [address] [facility] [id number] [place] [address] Apr, [facility] [place] [facility] [address] [facility] [id number] [place] [address] Apr, [facility] [place] [facility] [address] [facility] [id number] [place] [address] Apr, [facility] [place] [facility] [address] [id number] [place] [address] Apr, [facility] [place] [facility] [address] [facility] [id number] [place] [address] Apr, [facility] [place] [facility] [address] [facility] [id number] [place] [address] Mar, [facility] [place] [facility] [address] [id number] [place] [address] Mar, [facility] [place] [facility] [address] [id number] [place] [address] Mar, [facility] [place] [facility] [address] [id number] [place] [address] Mar, [facility] [place] [facility] [address] [id number] [place] [address] Mar, [facility] [place] [facility] [address] [id number] [place] [address] Mar, [facility] [place] [facility] [address] [id number] [place] [address] Mar, [facility] [place] [facility] [address] [id number] [place] [address] Mar, [facility] [place] [facility] [address] [id number] [place] [address] Mar, [facility] [place] [facility] [address] [id number] [place] [address] Mar, [facility] [place] [facility] [address] [id number] [place] [address] Mar, [facility] [place] [facility] [address] [id number] [place] [address] Mar, [facility] [place] [facility] [address] [id number] [place] [address] Mar, [facility] [place] [facility] [address] [id number] [place] [address] Mar, [facility] [place] [facility] [address] [id number] [place] [address] Mar, [facility] [place] [facility] [address] [id number] [place] [address] Feb, [facility] [place] [facility] [address] [id number] [place] [address] Feb, [facility] [place] [facility] [address] [id number] [place] [address] Feb, [facility] [place] [facility] [address] [id number] [place] [address] Feb, [facility] [place] [facility] [address] [facility] [id number] [place] [address] Feb, [facility] [place] [facility] [address] [id number] [place] [address] Feb, [facility] [place] [facility] [address] [id number] [place] [address] Jan, [facility] [place] [facility] [address] [id number] [place] [address] Jan, [facility] [place] [facility] [address] [id number] [place] [address] Jan, [facility] [place] [facility] [address] [id number] [place] [address] Jan, [facility] [place] [facility] [address] [id number] [place] [address] Jan, [facility] [place] [facility] [address] [id number] [place] [address] Jan, [facility] [place] [facility] [address] [id number] [address] 29 Dec, 2013 [facility] [place] [facility] [address] [id number] [address] 29 Dec, 2013 [facility] [place] [facility] [address] [id number] [place] [address] 26 Dec, 2013 [facility] [place] [facility] [address] [id number] [place] [address] 11 Dec, 2013 [facility] [place] [facility] [address] [id number] [place] [address] 11 Dec, 2013 [facility] [place] [facility] [address] [id number] [place] [address] 08 Sep, 2013 [facility] [place] [facility] [address] [id number] [place] [address] 08 Dec, 2013 [facility] [place] [facility] [address] [id number] [place] [address] Dec, 2013 [facility] [place] [facility] [address] [id number] [place] [address] Dec, 2013 [facility] [place] [facility] [address] [id number] [place] [address] Dec, 2013 [facility] [place] [facility] [address] [id number] [place] [address] Dec, 2013 [facility] [place] [facility] [address] [id number] [place] [address] Nov, [facility] [place] [facility] [address] [id number] [place] [address] Nov, [facility] [place] [facility] [address] [id number] [place] [address] Nov, [facility] [place] [facility] [address] [id number] [place] [address] Nov, [facility] [place] [facility] [address] [id number] [place] [address] Nov, [facility] [place] [facility] [address] [id number] [place] [address] Nov, [facility] [place] [facility] [address] [id number] [place] [address] Nov, [facility] [place] [facility] [address] [id number] [place] [address] Nov, [facility] [place] [facility] [address] [id number] [place] [address] Nov, [facility] [place] [facility] [address] [id number] [place] [address] Nov, [facility] [place] [facility] [address] [id number] [place] [address] Oct, [facility] [place] [facility] [address] [id number] [place] [address] Oct, [facility] [place] [facility] [address] [id number] [place] [address] Oct, [facility] [place] [facility] [address] [id number] [place] [address] Oct, [facility] [place] [facility] [address] [id number] [place] [address] Oct, [facility] [place] [facility] [address] [id number] [place] [address] Oct, [facility] [place] [facility] [address] [id number] [place] [address] Oct, [facility] [place] [facility] [address] [id number] [place] [address] Oct, [facility] [place] [facility] [address] [id number] [place] [address] Oct, [facility] [place] [facility] [address] [id number] [place] [address] Oct, [facility] [place] [facility] [address] [id number] [place] [address] Oct, [facility] [place] [facility] [address] [id number] [place] [address] Oct, [facility] [place] [facility] [address] [id number] [place] [address] Oct, [facility] [place] [facility] [address] [id number] [place] [address] Sep, [facility] [place] [facility] [address] [id number] [place] [address] Sep, [facility] [place] [facility] [address] [id number] [place] [address] Sep, [facility] [place] [facility] [address] [id number] [place] [address] Sep, [facility] [place] [facility] [address] [id number] [place] [address] August, [facility] [place] [facility] [address] [id number] [place] [address] August, [facility] [place] [facility] [address] [id number] [place] [address] August, [facility] [place] [facility] [address] [id number] [place] [address] August, [facility] [place] [facility] [address] [id number] [place] [address] August, [facility] [place] [facility] [address] [id number] [place] [address] August, [facility] [place] [facility] [address] [id number] [place] [address] August, [facility] [place] [facility] [address] [id number] [place] [address] August, [facility] [place] [facility] [address] [id number] [place] [address] Jul, [facility] [place] [facility] [address] [id number] [place] [address] Jul, [facility] [place] [facility] [address] [id number] [place] [address] Jun, [facility] [place] [facility] [address] [id number] [place] [address] Jun, [facility] [place] [facility] [address] [id number] [place] [address] Jun, [facility] [place] [facility] [address] [id number] [place] [address] Jun, [facility] [place] [facility] [address] [id number] [place] [address] Jun, [facility] [place] [facility] [address] [id number] [place] [address] Jun, [facility] [place] [facility] [address] [id number] [place] [address] May, [facility] [place] [facility] [address] [id number] [place] [address] May, [facility] [place] [facility] [address] [id number] [place] [address] May, [facility] [place] [facility] [address] [id number] [place] [address] May, [facility] [place] [facility] [address] [id number] [place] [address] May, [facility] [place] [facility] [address] [id number] [place] [address] May, [facility] [place] [facility] [address] [id number] [place] [address] Apr, [facility] [place] [facility] [address] [facility] [id number] [place] [address] Apr, [facility] [place] [facility] [address] [facility] [id number] [place] [address] 15 Feb, 2013 [facility] [place] [facility] [address] [id number] [place] [address] 15 Feb, 2013 [facility] [place] [facility] [address] [id number] [place] [address] 15 Feb, 2013 [facility] [place] [facility] [address] [id number] [place] [address] 15 Feb, 2013 [facility] [place] [facility] [address] [address] [id number] [place] [address] 13 Feb, 2013 [facility] [place] [facility] [address] [id number] [place] [address] Feb, [facility] [place] [facility] [address] [id number] [place] [address] Feb, [facility] [place] [facility] [address] [id number] [place] [address] Feb, [facility] [place] [facility] [address] [id number] [place] [address] Feb, [facility] [place] [facility] [address] [id number] [place] [address] Jan, [facility] [place] [facility] [address] [id number] [place] [address] Jan, [facility] [place] [facility] [address] [id number] [place] [address] Jan, [facility] [place] [facility] [address] [id number] [place] [address] Jan, [facility] [place] [facility] [address] [id number] [place] [address] Jan, [facility] [place] [facility] [address] [id number] [place] [address] Jan, [facility] [place] [facility] [address] [id number] [place] [address] 17 Dec, 2012 [facility] [place] [facility] [address] [id number] [place] [address] 12 Dec, 2012 [facility] [place] [facility] [address] [id number] [place] [address] 05 Dec, 2012 [facility] [place] [facility] [address] [id number] [place] [address] 05 Dec, 2012 [facility] [place] [facility] [address] [id number] [place] [address] Oct, [facility] [place] [facility] [address] [id number] [place] [address] Oct, [facility] [place] [facility] [address] [id number] [place] [address] Oct, [facility] [address] [id number] [place] [address] Oct, [facility] [address] [id number] [place] [address] Oct, [facility] [address] [id number] [place] [address] Sep, [facility] [address] [id number] [place] [address] August, [facility] [address] [id number] [place] [address] August, [facility] [address] [id number] [place] [address] August, [facility] [address] [id number] [place] [address] August, [facility] [address] [id number] [place] [address] August, [facility] [address] [id number] [place] [address] August, [facility] [address] [id number] [place] [address] August, [facility] [address] [id number] [place] [address] August, [facility] [address] [id number] [place] [address] August, [facility] [address] [id number] [place] [address] August, [facility] [address] [id number] [place] [address] August, [facility] [address] [id number] [place] [address] August, [facility] [address] [id number] [place] [address] Jun, [facility] [place] [facility] [address] [id number] [place] [address] Jun, [facility] [address] [id number] [place] [address] Jun, [facility] [place] [facility] [address] [id number] [place] [address] May, [facility] [address] [id number] [place] [address] May, [facility] [address] [id number] [place] [address] Mar, [facility] [address] [id number] [place] [address] Mar, [facility] [address] [id number] [place] [address] Feb, [facility] [place] [facility] [address] [id number] [place] [address] Feb, [facility] [address] [id number] [place] [address] Feb, [facility] [place] [facility] [address] [id number] [place] [address] Feb, [facility] [place] [facility] [address] [id number] [address] Dec, [facility] [place] [facility] [address] [id number] [place] [address] August, [facility] [place] [facility] [address] [id number] [place] [address] Jul, [facility] [place] [facility] [address] [id number] [place] [address] Jul, [facility] [place] [facility] [address] [id number] [place] [address] 13 Jun, 2011 [facility] [address] [id number] [place] [address] 13 Jun, 2011 [facility] [place] [facility] [address] [id number] [place] [address] 09 Jun, 2011 [facility] [address] [id number] [place] [address] 06 Jun, 2011 [facility] [place] [facility] [address] [id number] [place] [address] 02 Jun, 2011 [facility] [place] [facility] [address] [id number] [place] [address] 21 May, 2011 [facility] [place] [facility] [address] [id number] [place] [address] 19 May, 2011 [facility] [address] [id number] [place] [address] 14 May, 2011 [facility] [address] [id number] [place] [address] 06 May, 2011 [facility] [place] [facility] [address] [id number] [place] [address] Apr, [facility] [address] [facility] [id number] [place] [address] Apr, [facility] [place] [facility] [address] [id number] [place] [address] Apr, [facility] [place] [facility] [address] [id number] [place] [address] Mar, [facility] [place] [facility] [address] [id number] [place] [address] Mar, [facility] [place] [facility] [address] [facility] [id number] [place] [address] Mar, [facility] [place] [facility] [address] [facility] [id number] [place] [address] Mar, [facility] [address] [facility] [id number] [address] May, [facility] [address] [id number] [address] Feb, [facility] [address] [facility] [id number] [address] Feb, [facility] [address] [id number], [place] [address] Jan, [facility] [address] [facility] [id number] [address] Jan, IMMUNIZATIONS No Known Immunizations SOCIAL HISTORY Never Assessed REASON FOR VISIT PA for [facility] PLAN OF CARE VITAL SIGNS MEDICATIONS Medication Instructions Dosage Frequency Start Date End Date Duration Status Esomeprazole Magnesium 40 mg Orally Once a day 1 capsule 24h May, 30 day(s) Active RESULTS No Results PROCEDURES No Known [...]
--- OUTSIDE RECORDS SUMMARY | 2018-09-19 01:40 | XMS REPORT ---
Author Author SAMMY ARZATE [facility] Address [address] [place] [address] Care Team Providers Care Receiver Setter Name Role Phone SAMMY ARZATE Unavailable PROBLEMS Type Condition ICD9-CM Code CHP38-ZA Code Onset Dates Condition Status SNOMED Code Problem Other chronic nonalcoholic liver disease 571.8 Active 79067661 Problem Major depressive disorder, recurrent episode, moderate 296.32 Active 31306772 Problem Family history of other malignant neoplasm V16.49 Active 151523703 Problem Diaphragmatic hernia without mention of obstruction or gangrene 553.3 Active 76715587 Problem Cervicalgia 723.1 Active 84264380 Problem Umbilical hernia without mention of obstruction or gangrene 553.1 Active 933394859 Problem Family history of diabetes mellitus V18.0 Active 509291403 Problem Other abnormal glucose 790.29 Active 595557553 Problem Abdominal pain, generalized 789.07 Active 654072402 Problem Abdominal pain, right lower quadrant 789.03 Active 600131655 Problem Unspecified otalgia 388.70 Active 91565485 Problem Unspecified neuralgia, neuritis, and radiculitis 729.2 Active 68115691 Problem 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 79208729 Problem Other postprocedural status V45.89 Active 69749973 Problem Chest pain, unspecified 786.50 Active 00341580 Problem Anxiety state, unspecified 300.00 Active 719950110 Problem Osteoarthritis, unspecified osteoarthritis type, unspecified site M19.90 Active 241742505 Problem 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 Active 170303960 Problem Panic disorder without agoraphobia 300.01 Active 48471845 Problem Major depressive disorder, recurrent episode, severe, without mention of psychotic behavior 296.33 Active 84350139 Problem Umbilical hernia with obstruction 552.1 Active 708973293 Problem Depressive disorder, not elsewhere classified 311 Active 77757099 Problem Esophageal reflux 530.81 Active 689863257 Problem 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 Active 474669342 Problem Other abnormal blood chemistry 790.6 Active 083674525 Assessment Screening, lipid Z13.220 15 Dec, 2015 Active 006478464 Problem Family history of malignant neoplasm of gastrointestinal tract V16.0 Active 159714850 Assessment Irritable bowel syndrome with both constipation and diarrhea K58.0 15 Dec, 2015 Active 98798035 Problem Abnormal involuntary movements 781.0 Active 284296368 Assessment Dysuria R30.0 Dec, Active 61319842 Problem Essential hypertension, benign 401.1 Active 2653059 Assessment Nocturia R35.1 Dec, Active 434867655 Problem Abdominal pain, epigastric 789.06 Active 51807316 Problem Other malaise and fatigue 780.79 Active 868853250 Problem Lumbago 724.2 Active 838150005 Problem Family history of other cardiovascular diseases V17.49 Active 539295753 Problem Memory loss 780.93 Active 07690605 ALLERGIES Unknown Allergies SOCIAL HISTORY No smoking Hx information available PLAN OF CARE VITAL SIGNS MEDICATIONS Unknown Medications RESULTS Name Result Date Reference Range LIPID PANEL 2016-01-11 Cholesterol, Total 85 100-199 Triglycerides 118 0-149 HDL Cholesterol 40 >39 VLDL Cholesterol Suresh 24 5-40 LDL Cholesterol Calc 21 0-99 Comment: CMP 2016-01-11 Glucose, Serum 111 65-99 BUN 11 8-27 Creatinine, Serum 0.94 0.76-1.27 eGFR If NonAfricn Am 85 >59 eGFR If Africn Am 98 >59 BUN/Creatinine Ratio 12 10-22 Sodium, Serum 140 134-144 Potassium, Serum 4.6 3.5-5.2 Chloride, Serum 99 97-108 Carbon Dioxide, Total 26 18-29 Calcium, Serum 8.4 8.6-10.2 Protein, Total, Serum 6.4 6.0-8.5 Albumin, Serum 3.8 3.6-4.8 Globulin, Total 2.6 1.5-4.5 A/G Ratio 1.5 1.1-2.5 Bilirubin, Total 0.4 0.0-1.2 Alkaline Phosphatase, S 87 39-117 AST (SGOT) 31 0-40 ALT (SGPT) 17 0-44 PROCEDURES Procedure Date Ordered Related Diagnosis Body Site LAB NOT BILLED BY [facility] Jan 11, 2016 VENIPUNCT, ROUTINE* Jan 11, 2016 IMMUNIZATIONS No Known Immunizations
--- OUTSIDE RECORDS SUMMARY | 2018-09-19 01:41 | XMS REPORT ---
Author Author JASMIN DEWITT [facility] Address [address] [place] [address] Care Team Providers Care Manager Market Name Role Phone JASMIN DEWITT Unavailable PROBLEMS Type Condition ICD9-CM Code SLN89-OC Code Onset Dates Condition Status SNOMED Code Problem Other chronic nonalcoholic liver disease 571.8 Active 07059227 Problem Major depressive disorder, recurrent episode, moderate 296.32 Active 59476814 Problem Family history of other malignant neoplasm V16.49 Active 028799183 Problem Diaphragmatic hernia without mention of obstruction or gangrene 553.3 Active 89663657 Problem Cervicalgia 723.1 Active 10943671 Problem Umbilical hernia without mention of obstruction or gangrene 553.1 Active 139453207 Problem Family history of diabetes mellitus V18.0 Active 711648095 Problem Other abnormal glucose 790.29 Active 461289122 Problem Abdominal pain, generalized 789.07 Active 595791205 Problem Abdominal pain, right lower quadrant 789.03 Active 912063374 Problem Unspecified otalgia 388.70 Active 94732649 Problem Unspecified neuralgia, neuritis, and radiculitis 729.2 Active 33052535 Problem 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 35226708 Problem Other postprocedural status V45.89 Active 56358622 Problem Chest pain, unspecified 786.50 Active 13404905 Problem Anxiety state, unspecified 300.00 Active 333759657 Problem Osteoarthritis, unspecified osteoarthritis type, unspecified site M19.90 Active 238747863 Problem 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 Active 636370048 Problem Panic disorder without agoraphobia 300.01 Active 75384633 Problem Major depressive disorder, recurrent episode, severe, without mention of psychotic behavior 296.33 Active 85863527 Problem Umbilical hernia with obstruction 552.1 Active 519241421 Problem Depressive disorder, not elsewhere classified 311 Active 24885944 Problem Esophageal reflux 530.81 Active 617134719 Problem 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 Active 640106826 Problem Other abnormal blood chemistry 790.6 Active 446582018 Problem Family history of malignant neoplasm of gastrointestinal tract V16.0 Active 453233153 Assessment Lumbago with sciatica, left side M54.42 Dec, Active 436788431 Problem Abnormal involuntary movements 781.0 Active 217758839 Problem Essential hypertension, benign 401.1 Active 3805792 Problem Abdominal pain, epigastric 789.06 Active 75758878 Problem Other malaise and fatigue 780.79 Active 053272819 Problem Lumbago 724.2 Active 958073726 Problem Family history of other cardiovascular diseases V17.49 Active 553735415 Problem Memory loss 780.93 Active 98071508 ALLERGIES Substance Reaction Event Type Date Status Remeron Unknown Drug Allergy Dec, Active Bentyl 20 Mg Tablet Unknown Non Drug Allergy Dec, Active Ranitidine Hcl 150 Mg Tablet Unknown Non Drug Allergy Dec, Active SOCIAL HISTORY No smoking Hx information available PLAN OF CARE VITAL SIGNS Height 73 in 2016-01-20 Weight 214 lbs 2016-01-20 Heart Rate 86 bpm 2016-01-20 Respiratory Rate 16 2016-01-20 BMI 28.23 kg/m2 2016-01-20 Blood pressure systolic 118 mmHg 2016-01-20 Blood pressure diastolic 64 mmHg 2016-01-20 MEDICATIONS Medication Instructions Dosage Frequency Start Date End Date Duration Status ProAir HFA 108 (90 Base) MCG/ACT Inhalation every 6hrs 2 puffs as needed 30 days Active Nexium 40 MG TAKE ONE CAPSULE BY MOUTH ONCE DAILY 30 Active Bentyl 20 mg Orally 2 times a day 1 tablet 12h 14 Dec, 2015 Jan, 30 day(s) Active Rapaflo 8 MG TAKE ONE CAPSULE BY MOUTH DAILY 30 Active Test strips Test Strips Glucocard Expression 2 times a day test blood sugar 12h 12 Dec, 2015 Active Xanax 1 MG Orally Twice a day 1 tablet 12h 25 Jun, 2014 28 days Active Oxycodone-Acetaminophen 10-325 MG Orally every 6 hrs 1 tablet as needed 6h 05 Jul, 2015 Active RESULTS No Results PROCEDURES Procedure Date Ordered Related Diagnosis Body Site Office Visit, Est Pt., Level 3 Jan 20, 2016 IMMUNIZATIONS No Known Immunizations
--- OUTSIDE RECORDS SUMMARY | 2018-09-19 01:41 | XMS REPORT ---
Author Author SAMMY ARZATE [facility] e[employer] Address Unknown Phone Unavailable Care Team Providers Care Type Photography Supervisor Name Role Phone SAMMY ARZATE CP Unavailable Allergies, Adverse Reactions, Alerts Substance Reaction Event Type Remeron Info Not Available Drug Allergy Bentyl 20 Mg Tablet Info Not Available Non Drug Allergy Ranitidine Hcl 150 Mg Tablet Info Not Available Non Drug Allergy Problems Problem Type Condition Code Onset Dates Condition Status Assessment Nocturia R35.1 Active Assessment Family history of diabetes mellitus Z83.3 Active Problem Major depressive disorder, recurrent episode, moderate 296.32 Active Assessment Irritable bowel syndrome with both constipation and diarrhea K58.0 Active Problem Other chronic nonalcoholic liver disease [...] Active Problem Chest pain, unspecified 786.50 Active Assessment Screening, lipid Z13.220 Active Problem Panic disorder without agoraphobia 300.01 Active Assessment Dysuria R30.0 Active Problem Essential hypertension, benign 401.1 Active [...] Instructions Start Date End Date Status Dosage Test strips NDC 0 Test Strips Glucocard Expression 2 times a day Jan 08, 2016 test blood sugar Nexium [facility] 11739111609 40 MG TAKE ONE CAPSULE BY MOUTH ONCE DAILY Rapaflo [facility] 14137456957 8 MG TAKE ONE CAPSULE BY MOUTH DAILY Bentyl [facility] [address]-44 20 mg Orally 2 times a day Jan 10, 2016 Feb 09, 2016 1 tablet ProAir HFA [facility] 39590177575 108 (90 Base) MCG/ACT Inhalation every 6hrs 2 puffs as needed Xanax [facility] [address]-21 1 MG Orally Twice a day July 20, 2014 1 tablet Procedures Procedure Coding System Code Date GLYCATED HEMOGLOBIN TEST CPT-4 55076 Jan 10, 2016 Office Visit, Est Pt., Level 3 CPT-4 59802 Jan 10, 2016 URINALYSIS, AUTO, W/O SCOPE CPT-4 70659 Jan 10, 2016 Vital Signs Date/Time: Jan 10, 2016 Cardiac Monitoring Heart Rate 68 bpm Weight 214.8 lbs Height 73 in BMI 28.34 Index Blood Pressure Diastolic 76 mmHg Blood Pressure Systolic 110 mmHg Results Name Result Date Reference Range Unit Abnormality Flag A1C (IN HOUSE) ----A1C IN HOUSE 5.8 20160110 4.3 - 5.6 % ----Lot [id number] 20160110 ----Exp date 20160110 UA LONG DIP (IN HOUSE) ----[place] Negative 20160110 ----GLU Negative 20160110 ----SG >=1.030 20160110 ----KET Trace 20160110 ----pH 6.0 20160110 ----Protein Negative 20160110 ----BLO Negative 20160110 ----MAGDIEL Negative 20160110 ----Color Yellow 20160110 ----Odor None 20160110 ----Exp date 20160110 ----URO 0.2 20160110 ----NIT Negative 20160110 ----Clarity Clear 20160110 ----Lot # [id number] Summary Purpose eClinicalWorks Submission
--- OUTSIDE RECORDS SUMMARY | 2018-09-19 01:41 | XMS REPORT ---
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 Active 645882918 Problem 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 Active 075920076 Problem Other chronic pain G89.29 Active 36423540 Problem Osteoarthritis, unspecified osteoarthritis type, unspecified site M19.90 Active 366408703 ALLERGIES No Information ENCOUNTERS Encounter Location Date Diagnosis [place] [address] [address] Sep, [place] [address] [address] Sep, Osteoarthritis, unspecified osteoarthritis type, unspecified site M19.90 [place] [address] [address] [place] [id number] [place] [address] August, Other chronic pain G89.29 and Other specified personal risk factors, not elsewhere classified Z91.89 [place] [address] [address] August, Osteoarthritis, unspecified osteoarthritis type, unspecified site M19.90 [place] [address] [address] Jul, Osteoarthritis, unspecified osteoarthritis type, unspecified site M19.90 [place] [address], [place] [address] Jun, Osteoarthritis, unspecified osteoarthritis type, unspecified site M19.90 [place] [address] [place] [id number] [address] Jun, [place] [address] [place] [id number] [place] [address] Jun, Osteoarthritis, unspecified osteoarthritis type, unspecified site M19.90 [place] [address] [place] [id number] [place] [address] May, [place] [address] [place] [id number] [place] [address] May, Benign prostatic hyperplasia, unspecified whether lower urinary tract symptoms present N40.0 [place] [address] [place] [id number] [place] [address] May, Osteoarthritis, unspecified osteoarthritis type, unspecified site M19.90 [place] [address], [place] [address] May, [place] [address] [place] [id number] [place] [address] Apr, Other chronic pain G89.29 ; Family history of diabetes mellitus Z83.3 ; Forgetfulness R68.89 ; History of multiple concussions Z87.820 ; Gastroesophageal reflux disease without esophagitis K21.9 and Screening, lipid Z13.220 [place] [address], [place] [address] Apr, Other chronic pain G89.29 ; Forgetfulness R68.89 ; History of multiple concussions Z87.820 ; Gastroesophageal reflux disease without esophagitis K21.9 ; Screening, lipid Z13.220 and Family history of diabetes mellitus Z83.3 [place] [address], [place] [address] Apr, Osteoarthritis, unspecified osteoarthritis type, unspecified site M19.90 [place] [address] [address] Apr, Osteoarthritis, unspecified osteoarthritis type, unspecified site M19.90 [facility] [address], [place] [address] Apr, [facility] [address], [place] [address] Mar, Osteoarthritis, unspecified osteoarthritis type, unspecified site M19.90 [facility] [address], [place] [address] Feb, Osteoarthritis, unspecified osteoarthritis type, unspecified site M19.90 [facility] [address], [place] [address] Jan, Osteoarthritis, unspecified osteoarthritis type, unspecified site M19.90 [place] [address], [place] [address] Dec, Osteoarthritis, unspecified osteoarthritis type, unspecified site M19.90 [facility] [address], [place] [address] Dec, [facility] [address], [place] [address] Nov, Encounter for screening for lipid disorder Z13.220 [facility] [address], [place] [address] Nov, Osteoarthritis, unspecified osteoarthritis type, unspecified site M19.90 ; Encounter for screening for lipid disorder Z13.220 and Other chronic pain G89.29 [facility] [address], [place] [address] Nov, Osteoarthritis, unspecified osteoarthritis type, unspecified site M19.90 [facility] [address], [place] [address] Nov, [facility] [address], [place] [address] Nov, [facility] [address], [place] [address] Oct, Osteoarthritis, unspecified osteoarthritis type, unspecified site M19.90 [facility] [address] [place] [id number] [place] [address] Oct, Gastroesophageal reflux disease without esophagitis K21.9 [facility] [address] [place] [id number] [place] [address] Sep, Osteoarthritis, unspecified osteoarthritis type, unspecified site M19.90 [place] [address] [place] [id number] [place] [address] August, Osteoarthritis, unspecified osteoarthritis type, unspecified site M19.90 [place] [address] [place] [id number] [place] [address] August, Osteoarthritis, unspecified osteoarthritis type, unspecified site M19.90 [place] [address] [place] [id number] [place] [address] Jul, Osteoarthritis, unspecified osteoarthritis type, unspecified site M19.90 and Gastroesophageal reflux disease without esophagitis K21.9 [place] [address] [place] [id number] [place] [address] Jul, Osteoarthritis, unspecified osteoarthritis type, unspecified site M19.90 [place] [address] [place] [id number] [place] [address] Jun, Ventral hernia without obstruction or gangrene K43.9 [facility] [address] [place] [id number], [place] [address] Jun, Osteoarthritis, unspecified osteoarthritis type, unspecified site M19.90 [facility] [id number] [place] [address] May, [facility] [address] [place] [id number] [address] May, Osteoarthritis, unspecified osteoarthritis type, unspecified site M19.90 [facility] [address], [place] [address] Apr, Osteoarthritis, unspecified osteoarthritis type, unspecified site M19.90 [facility] [address] [place] [address] Mar, [facility] [address] [place] [id number] [place] [address] Mar, Osteoarthritis, unspecified osteoarthritis type, unspecified site M19.90 and Lumbago with sciatica, left side M54.42 [facility] [address] [place] [id number] [place] [address] Feb, [facility] [address] [place] [id number] [place] [address] Feb, [facility] [address] [place] [id number] [place] [address] Feb, Osteoarthritis, unspecified osteoarthritis type, unspecified site M19.90 [facility] [address] [place] [id number] [place] [address] Feb, [facility] [address] [place] [id number] [place] [address] Feb, Low back pain M54.5 and Other chronic pain G89.29 [facility] [address] [place] [id number] [place] [address] Feb, [facility] [address] [place] [id number] [place] [address] Jan, [facility] [address] [place] [id number] [place] [address] Jan, [facility] [address] [place] [id number] [place] [address] Dec, Lumbago with sciatica, left side M54.42 [facility] [address] [place] [id number] [place] [address] 15 Dec, 2015 Irritable bowel syndrome with both constipation and diarrhea K58.0 ; Screening, lipid Z13.220 ; Nocturia R35.1 ; Family history of diabetes mellitus Z83.3 and Dysuria R30.0 [facility] [address] [place] [id number] [place] [address] 14 Dec, 2015 Irritable bowel syndrome with both constipation and diarrhea K58.0 ; Nocturia R35.1 ; Family history of diabetes mellitus Z83.3 ; Dysuria R30.0 and Screening, lipid Z13.220 [facility] [address] [place] [id number] [place] [address] 12 Dec, 2015 [place] [address] [place] [id number] [place] [address] 07 Dec, 2015 [facility] [address] [place] [id number] [place] [address] Dec, Pain with swallowing R13.10 [place] [address] [place] [id number] [place] [address] Nov, [place] [address] [place] [id number] [place] [address] Nov, [place] [address] [place] [id number] [place] [address] Oct, [place] [address] [place] [id number] [place] [address] Sep, [facility] [address] [place] [id number] [place] [address] Sep, Osteoarthritis, unspecified osteoarthritis type, unspecified site M19.90 [place] [address] [place] [id number] [place] [address] Sep, Back pain M54.9 [place] [address] [place] [id number] [place] [address] 07 Sep, 2015 Lumbago with sciatica, right side M54.41 and Bilateral impacted cerumen H61.23 [facility] [address], [place] [address] Sep, [facility] [address] [place] [id number] [place] [address] August, Bronchitis J40 [facility] [address] [place] [id number] [place] [address] August, [facility] [address] [place] [id number] [place] [address] August, [facility] [address] [place] [id number] [place] [address] August, [facility] [address] [place] [id number] [place] [address] Jul, [facility] [address] [place] [id number] [place] [address] Jul, Back pain M54.9 [facility] [address] [place] [id number] [place] [address] Jun, Degenerative disc disease at L5-S1 level M51.36 and Bronchitis J40 [facility] [address] [place] [id number] [place] [address] Jun, [facility] [id number] [place] [address] May, [facility] [id number] [place] [address] Apr, [facility] [id number] [place] [address] Mar, [facility] [address] [place] [id number] [place] [address] Mar, [facility] [id number] [place] [address] Feb, [facility] [address] [place] [id number] [place] [address] Jan, [facility] [address] [place] [id number] [address] Dec, [facility] [address] [place] [id number] [place] [address] Nov, [facility] [address] [place] [id number] [place] [address] Oct, [facility] [address] [place] [id number] [place] [address] Oct, Right shoulder pain 719.41 [facility] [address] [place] [id number] [place] [address] Sep, [facility] [address] [place] [id number] [place] [address] Sep, Vertigo 780.4 and Elbow fracture, right 812.40 [facility] [address] [place] [id number] [place] [address] Sep, [facility] [address] [place] [id number] [place] [address] August, [facility] [address] [place] [id number] [place] [address] Jul, [facility] [address], [place] [address] Jul, [facility] [id number] [place] [address] Jun, [facility] [address] [place] [id number], [place] [address] Jun, [facility] [address] [place] [id number] [place] [address] Jun, [facility] [address], [place] [address] Jun, [facility] [address] [place] [id number] [place] [address] Jun, [facility] [place] [facility] [address] [id number] [place] [address] Jun, [facility] [place] [facility] [address] [id number] [place] [address] May, [facility] [place] [facility] [address] [id number] [place] [address] May, [facility] [place] [facility] [address] [id number] [place] [address] May, [facility] [place] [facility] [address] [id number] [place] [address] May, [facility] [place] [facility] [address] [facility] [id number] [place] [address] May, [facility] [place] [facility] [address] [facility] [id number] [place] [address] May, [facility] [place] [facility] [address] [facility] [id number] [place] [address] Apr, [facility] [place] [facility] [address] [facility] [id number] [place] [address] Apr, [facility] [place] [facility] [address] [facility] [id number] [place] [address] Apr, [facility] [place] [facility] [address] [facility] [id number] [place] [address] Apr, [facility] [place] [facility] [address] [facility] [id number] [place] [address] Apr, [facility] [place] [facility] [address] [id number] [place] [address] Apr, [facility] [place] [facility] [address] [facility] [id number] [place] [address] Apr, [facility] [place] [facility] [address] [facility] [id number] [place] [address] Mar, [facility] [place] [facility] [address] [id number] [place] [address] Mar, [facility] [place] [facility] [address] [id number] [place] [address] Mar, [facility] [place] [facility] [address] [id number] [place] [address] Mar, [facility] [place] [facility] [address] [id number] [place] [address] Mar, [facility] [place] [facility] [address] [id number] [place] [address] Mar, [facility] [place] [facility] [address] [id number] [place] [address] Mar, [facility] [place] [facility] [address] [id number] [place] [address] Mar, [facility] [place] [facility] [address] [id number] [place] [address] Mar, [facility] [place] [facility] [address] [id number] [place] [address] Mar, [facility] [place] [facility] [address] [id number] [place] [address] Mar, [facility] [place] [facility] [address] [id number] [place] [address] Mar, [facility] [place] [facility] [address] [id number] [place] [address] Mar, [facility] [place] [facility] [address] [id number] [place] [address] Mar, [facility] [place] [facility] [address] [id number] [place] [address] Mar, [facility] [place] [facility] [address] [id number] [place] [address] Feb, [facility] [place] [facility] [address] [id number] [place] [address] Feb, [facility] [place] [facility] [address] [id number] [place] [address] Feb, [facility] [place] [facility] [address] [id number] [place] [address] Feb, [facility] [place] [facility] [address] [facility] [id number] [place] [address] Feb, [facility] [place] [facility] [address] [id number] [place] [address] Feb, [facility] [place] [facility] [address] [id number] [place] [address] Jan, [facility] [place] [facility] [address] [id number] [place] [address] Jan, [facility] [place] [facility] [address] [id number] [place] [address] Jan, [facility] [place] [facility] [address] [id number] [place] [address] Jan, [facility] [place] [facility] [address] [id number] [place] [address] Jan, [facility] [place] [facility] [address] [id number] [place] [address] Jan, [facility] [place] [facility] [address] [id number] [address] 29 Dec, 2013 [facility] [place] [facility] [address] [id number] [address] 29 Dec, 2013 [facility] [place] [facility] [address] [id number] [place] [address] 26 Dec, 2013 [facility] [place] [facility] [address] [id number] [place] [address] 11 Dec, 2013 [facility] [place] [facility] [address] [id number] [place] [address] 11 Dec, 2013 [facility] [place] [facility] [address] [id number] [place] [address] 08 Sep, 2013 [facility] [place] [facility] [address] [id number] [place] [address] 08 Dec, 2013 [facility] [place] [facility] [address] [id number] [place] [address] Dec, 2013 [facility] [place] [facility] [address] [id number] [place] [address] Dec, 2013 [facility] [place] [facility] [address] [id number] [place] [address] Dec, 2013 [facility] [place] [facility] [address] [id number] [place] [address] Dec, 2013 [facility] [place] [facility] [address] [id number] [place] [address] Nov, [facility] [place] [facility] [address] [id number] [place] [address] Nov, [facility] [place] [facility] [address] [id number] [place] [address] Nov, [facility] [place] [facility] [address] [id number] [place] [address] Nov, [facility] [place] [facility] [address] [id number] [place] [address] Nov, [facility] [place] [facility] [address] [id number] [place] [address] Nov, [facility] [place] [facility] [address] [id number] [place] [address] Nov, [facility] [place] [facility] [address] [id number] [place] [address] Nov, [facility] [place] [facility] [address] [id number] [place] [address] Nov, [facility] [place] [facility] [address] [id number] [place] [address] Nov, [facility] [place] [facility] [address] [id number] [place] [address] Oct, [facility] [place] [facility] [address] [id number] [place] [address] Oct, [facility] [place] [facility] [address] [id number] [place] [address] Oct, [facility] [place] [facility] [address] [id number] [place] [address] Oct, [facility] [place] [facility] [address] [id number] [place] [address] Oct, [facility] [place] [facility] [address] [id number] [place] [address] Oct, [facility] [place] [facility] [address] [id number] [place] [address] Oct, [facility] [place] [facility] [address] [id number] [place] [address] Oct, [facility] [place] [facility] [address] [id number] [place] [address] Oct, [facility] [place] [facility] [address] [id number] [place] [address] Oct, [facility] [place] [facility] [address] [id number] [place] [address] Oct, [facility] [place] [facility] [address] [id number] [place] [address] Oct, [facility] [place] [facility] [address] [id number] [place] [address] Oct, [facility] [place] [facility] [address] [id number] [place] [address] Sep, [facility] [place] [facility] [address] [id number] [place] [address] Sep, [facility] [place] [facility] [address] [id number] [place] [address] Sep, [facility] [place] [facility] [address] [id number] [place] [address] Sep, [facility] [place] [facility] [address] [id number] [place] [address] August, [facility] [place] [facility] [address] [id number] [place] [address] August, [facility] [place] [facility] [address] [id number] [place] [address] August, [facility] [place] [facility] [address] [id number] [place] [address] August, [facility] [place] [facility] [address] [id number] [place] [address] August, [facility] [place] [facility] [address] [id number] [place] [address] August, [facility] [place] [facility] [address] [id number] [place] [address] August, [facility] [place] [facility] [address] [id number] [place] [address] August, [facility] [place] [facility] [address] [id number] [place] [address] Jul, [facility] [place] [facility] [address] [id number] [place] [address] Jul, [facility] [place] [facility] [address] [id number] [place] [address] Jun, [facility] [place] [facility] [address] [id number] [place] [address] Jun, [facility] [place] [facility] [address] [id number] [place] [address] Jun, [facility] [place] [facility] [address] [id number] [place] [address] Jun, [facility] [place] [facility] [address] [id number] [place] [address] Jun, [facility] [place] [facility] [address] [id number] [place] [address] Jun, [facility] [place] [facility] [address] [id number] [place] [address] May, [facility] [place] [facility] [address] [id number] [place] [address] May, [facility] [place] [facility] [address] [id number] [place] [address] May, [facility] [place] [facility] [address] [id number] [place] [address] May, [facility] [place] [facility] [address] [id number] [place] [address] May, [facility] [place] [facility] [address] [id number] [place] [address] May, [facility] [place] [facility] [address] [id number] [place] [address] Apr, [facility] [place] [facility] [address] [facility] [id number] [place] [address] Apr, [facility] [place] [facility] [address] [facility] [id number] [place] [address] 15 Feb, 2013 [facility] [place] [facility] [address] [id number] [place] [address] 15 Feb, 2013 [facility] [place] [facility] [address] [id number] [place] [address] 15 Feb, 2013 [facility] [place] [facility] [address] [id number] [place] [address] 15 Feb, 2013 [facility] [place] [facility] [address] [id number] [place] [address] 13 Feb, 2013 [facility] [place] [facility] [address] [id number] [place] [address] Feb, [facility] [place] [facility] [address] [id number] [place] [address] Feb, [facility] [place] [facility] [address] [id number] [place] [address] Feb, [facility] [place] [facility] [address] [id number] [place] [address] Feb, [facility] [place] [facility] [address] [id number] [place] [address] Jan, [facility] [place] [facility] [address] [id number] [place] [address] Jan, [facility] [place] [facility] [address] [id number] [place] [address] Jan, [facility] [place] [facility] [address] [id number] [place] [address] Jan, [facility] [place] [facility] [address] [id number] [place] [address] Jan, [facility] [place] [facility] [address] [id number] [place] [address] Jan, [facility] [place] [facility] [address] [id number] [place] [address] 17 Dec, 2012 [facility] [place] [facility] [address] [id number] [place] [address] 12 Dec, 2012 [facility] [place] [facility] [address] [id number] [place] [address] 05 Dec, 2012 [facility] [place] [facility] [address] [id number] [place] [address] 05 Dec, 2012 [facility] [place] [facility] [address] [id number] [place] [address] Oct, [facility] [place] [facility] [address] [id number] [place] [address] Oct, [facility] [place] [facility] [address] [id number] [place] [address] Oct, [facility] [address] [id number] [place] [address] Oct, [facility] [address] [id number] [place] [address] Oct, [facility] [address] [id number] [place] [address] Sep, [facility] [address] [id number] [place] [address] August, [facility] [address] [id number] [place] [address] August, [facility] [address] [id number] [place] [address] August, [facility] [address] [id number] [place] [address] August, [facility] [address] [id number] [place] [address] August, [facility] [address] [id number] [place] [address] August, [facility] [address] [id number] [place] [address] August, [facility] [address] [id number] [place] [address] August, [facility] [address] [id number] [place] [address] August, [facility] [address] [id number] [place] [address] August, [facility] [address] [id number] [place] [address] August, [facility] [address] [id number] [place] [address] August, [facility] [address] [id number] [place] [address] Jun, [facility] [place] [facility] [address] [id number] [place] [address] Jun, [facility] [address] [id number] [place] [address] Jun, [facility] [place] [facility] [address] [id number] [place] [address] May, [facility] [address] [id number] [place] [address] May, [facility] [address] [id number] [place] [address] Mar, [facility] [address] [id number] [place] [address] Mar, [facility] [address] [id number] [place] [address] Feb, [facility] [place] [facility] [address] [id number] [place] [address] Feb, [facility] [address] [id number] [place] [address] Feb, [facility] [place] [facility] [address] [id number] [place] [address] Feb, [facility] [place] [facility] [address] [id number] [address] Dec, [facility] [place] [facility] [address] [id number] [place] [address] August, [facility] [place] [facility] [address] [id number] [place] [address] Jul, [facility] [place] [facility] [address] [id number] [place] [address] Jul, [facility] [place] [facility] [address] [id number] [place] [address] 13 Jun, 2011 [facility] [address] [id number] [place] [address] 13 Jun, 2011 [facility] [place] [facility] [address] [id number] [place] [address] 09 Jun, 2011 [facility] [address] [id number] [place] [address] 06 Jun, 2011 [facility] [place] [facility] [address] [id number] [place] [address] 02 Jun, 2011 [facility] [place] [facility] [address] [id number] [place] [address] 21 May, 2011 [facility] [place] [facility] [address] [id number] [place] [address] 19 May, 2011 [facility] [address] [id number] [place] [address] 14 May, 2011 [facility] [address] [id number] [place] [address] 06 May, 2011 [facility] [place] [facility] [address] [id number] [place] [address] Apr, [facility] [address] [facility] [id number] [place] [address] Apr, [facility] [place] [facility] [address] [id number] [place] [address] Apr, [facility] [place] [facility] [address] [id number] [place] [address] Mar, [facility] [place] [facility] [address] [id number] [place] [address] Mar, [facility] [place] [facility] [address] [facility] [id number] [place] [address] Mar, [facility] [place] [facility] [address] [facility] [id number] [place] [address] Mar, [facility] [address] [facility] [id number] [address] May, [facility] [address] [id number], [place] [address] Feb, [facility] [address] [id number], [place] [address] Feb, [facility] [address] [id number], [place] [address] Jan, [facility] [address] [facility] [id number] [address] Jan, IMMUNIZATIONS No Known Immunizations SOCIAL HISTORY Never Assessed REASON FOR VISIT Prior Authorization Request PLAN OF CARE VITAL SIGNS MEDICATIONS [...]
--- OUTSIDE RECORDS SUMMARY | 2018-09-19 01:42 | XMS REPORT ---
Author Author SAMMY ARZATE [facility] eClinicalWorks Address Unknown Phone Unavailable Care Team Providers Care Latex Spooler Name Role Phone SAMMY ARZATE CP Unavailable [...] Start Date End Date Status Dosage Xanax [facility] [address]-26 1 MG Orally Twice a day July 20, 2014 1 tablet Results No Known Results Summary Purpose eClinicalWorks Submission
--- OUTSIDE RECORDS SUMMARY | 2018-09-19 01:42 | XMS REPORT ---
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29 and Other specified personal risk factors, not elsewhere classified Z91.89 [place] [address] [address] August, Osteoarthritis, unspecified osteoarthritis type, unspecified site M19.90 [place] [address] [address] Jul, Osteoarthritis, unspecified osteoarthritis type, unspecified site M19.90 [place] [address], [place] [address] Jun, Osteoarthritis, unspecified osteoarthritis type, unspecified site M19.90 [place] [address] [place] [id number] [address] Jun, [place] [address] [place] [id number] [place] [address] Jun, Osteoarthritis, unspecified osteoarthritis type, unspecified site M19.90 [place] [address] [place] [id number] [place] [address] May, [place] [address] [place] [id number] [place] [address] May, Benign prostatic hyperplasia, unspecified whether lower urinary tract symptoms present N40.0 [place] [address] [place] [id number] [place] [address] May, Osteoarthritis, unspecified osteoarthritis type, unspecified site M19.90 [place] [address] [address] May, [place] [address] [place] [id number] [place] [address] Apr, Other chronic pain G89.29 ; Family history of diabetes mellitus Z83.3 ; Forgetfulness R68.89 ; History of multiple concussions Z87.820 ; Gastroesophageal reflux disease without esophagitis K21.9 and Screening, lipid Z13.220 [place] [address], [place] [address] Apr, Other chronic pain G89.29 ; Forgetfulness R68.89 ; History of multiple concussions Z87.820 ; Gastroesophageal reflux disease without esophagitis K21.9 ; Screening, lipid Z13.220 and Family history of diabetes mellitus Z83.3 [place] [address], [place] [address] Apr, Osteoarthritis, unspecified osteoarthritis type, unspecified site M19.90 [place] [address] [address] Apr, Osteoarthritis, unspecified osteoarthritis type, unspecified site M19.90 [facility] [address], [place] [address] Apr, [facility] [address], [place] [address] Mar, Osteoarthritis, unspecified osteoarthritis type, unspecified site M19.90 [facility] [address], [place] [address] Feb, Osteoarthritis, unspecified osteoarthritis type, unspecified site M19.90 [facility] [address], [place] [address] Jan, Osteoarthritis, unspecified osteoarthritis type, unspecified site M19.90 [place] [address], [place] [address] Dec, Osteoarthritis, unspecified osteoarthritis type, unspecified site M19.90 [facility] [address], [place] [address] Dec, [facility] [address], [place] [address] Nov, Encounter for screening for lipid disorder Z13.220 [facility] [address], [place] [address] Nov, Osteoarthritis, unspecified osteoarthritis type, unspecified site M19.90 ; Encounter for screening for lipid disorder Z13.220 and Other chronic pain G89.29 [facility] [address], [place] [address] Nov, Osteoarthritis, unspecified osteoarthritis type, unspecified site M19.90 [facility] [address], [place] [address] Nov, [facility] [address], [place] [address] Nov, [facility] [address], [place] [address] Oct, Osteoarthritis, unspecified osteoarthritis type, unspecified site M19.90 [facility] [address] [place] [id number] [place] [address] Oct, Gastroesophageal reflux disease without esophagitis K21.9 [facility] [address] [place] [id number] [place] [address] Sep, Osteoarthritis, unspecified osteoarthritis type, unspecified site M19.90 [place] [address] [place] [id number] [place] [address] August, Osteoarthritis, unspecified osteoarthritis type, unspecified site M19.90 [place] [address] [place] [id number] [place] [address] August, Osteoarthritis, unspecified osteoarthritis type, unspecified site M19.90 [place] [address] [place] [id number] [place] [address] Jul, Osteoarthritis, unspecified osteoarthritis type, unspecified site M19.90 and Gastroesophageal reflux disease without esophagitis K21.9 [place] [address] [place] [id number] [place] [address] Jul, Osteoarthritis, unspecified osteoarthritis type, unspecified site M19.90 [place] [address] [place] [id number] [place] [address] Jun, Ventral hernia without obstruction or gangrene K43.9 [facility] [address] [place] [id number] [address] Jun, Osteoarthritis, unspecified osteoarthritis type, unspecified site M19.90 [facility] [address] [place] [address] May, [facility] [address] [place] [id number] [address] May, Osteoarthritis, unspecified osteoarthritis type, unspecified site M19.90 [facility] [address], [place] [address] Apr, Osteoarthritis, unspecified osteoarthritis type, unspecified site M19.90 [facility] [address] [place] [address] Mar, [facility] [address] [place] [id number] [place] [address] Mar, Osteoarthritis, unspecified osteoarthritis type, unspecified site M19.90 and Lumbago with sciatica, left side M54.42 [facility] [address] [place] [id number] [place] [address] Feb, [facility] [address] [place] [id number] [place] [address] Feb, [facility] [address] [place] [id number] [place] [address] Feb, Osteoarthritis, unspecified osteoarthritis type, unspecified site M19.90 [facility] [address] [place] [id number] [place] [address] Feb, [facility] [address] [place] [id number] [place] [address] Feb, Low back pain M54.5 and Other chronic pain G89.29 [facility] [address] [place] [id number] [place] [address] Feb, [facility] [address] [place] [id number] [place] [address] Jan, [facility] [address] [place] [id number] [place] [address] Jan, [facility] [address] [place] [id number] [place] [address] Dec, Lumbago with sciatica, left side M54.42 [facility] [address] [place] [id number] [place] [address] 15 Dec, 2015 Irritable bowel syndrome with both constipation and diarrhea K58.0 ; Screening, lipid Z13.220 ; Nocturia R35.1 ; Family history of diabetes mellitus Z83.3 and Dysuria R30.0 [facility] [address] [place] [id number] [place] [address] 14 Dec, 2015 Irritable bowel syndrome with both constipation and diarrhea K58.0 ; Nocturia R35.1 ; Family history of diabetes mellitus Z83.3 ; Dysuria R30.0 and Screening, lipid Z13.220 [facility] [address] [place] [id number] [place] [address] 12 Dec, 2015 [place] [address] [place] [id number] [place] [address] 07 Dec, 2015 [facility] [address] [place] [id number] [place] [address] Dec, Pain with swallowing R13.10 [place] [address] [place] [id number] [place] [address] Nov, [place] [address] [place] [id number] [place] [address] Nov, [place] [address] [place] [id number] [place] [address] Oct, [place] [address] [place] [id number] [place] [address] Sep, [facility] [address] [place] [id number] [place] [address] Sep, Osteoarthritis, unspecified osteoarthritis type, unspecified site M19.90 [place] [address] [place] [id number] [place] [address] Sep, Back pain M54.9 [place] [address] [place] [id number] [place] [address] 07 Sep, 2015 Lumbago with sciatica, right side M54.41 and Bilateral impacted cerumen H61.23 [facility] [address], [place] [address] Sep, [facility] [address] [place] [id number] [place] [address] August, Bronchitis J40 [facility] [address] [place] [id number] [place] [address] August, [facility] [address] [place] [id number] [place] [address] August, [facility] [address] [place] [id number] [place] [address] August, [facility] [address] [place] [id number] [place] [address] Jul, [facility] [address] [place] [id number] [place] [address] Jul, Back pain M54.9 [facility] [address] [place] [id number] [place] [address] Jun, Degenerative disc disease at L5-S1 level M51.36 and Bronchitis J40 [facility] [address] [place] [id number] [place] [address] Jun, [facility] [id number] [place] [address] May, [facility] [id number] [place] [address] Apr, [facility] [id number] [place] [address] Mar, [facility] [address] [place] [id number] [place] [address] Mar, [facility] [address] [place] [address] Feb, [facility] [address] [place] [id number] [place] [address] Jan, [facility] [address] [place] [id number] [address] Dec, [facility] [address] [place] [id number] [place] [address] Nov, [facility] [address] [place] [id number] [place] [address] Oct, [facility] [address] [place] [id number] [place] [address] Oct, Right shoulder pain 719.41 [facility] [address] [place] [id number] [place] [address] Sep, [facility] [address] [place] [id number] [place] [address] Sep, Vertigo 780.4 and Elbow fracture, right 812.40 [facility] [address] [place] [id number] [place] [address] Sep, [facility] [address] [place] [id number] [place] [address] August, [facility] [address] [place] [id number] [place] [address] Jul, [facility] [address], [place] [address] Jul, [facility] [id number] [place] [address] Jun, [facility] [address] [place] [id number] [address] Jun, [facility] [address] [place] [id number] [place] [address] Jun, [facility] [address], [place] [address] Jun, [facility] [address] [place] [id number] [place] [address] Jun, [facility] [place] [facility] [address] [id number] [place] [address] Jun, [facility] [place] [facility] [address] [id number] [place] [address] May, [facility] [place] [facility] [address] [id number] [place] [address] May, [facility] [place] [facility] [address] [id number] [place] [address] May, [facility] [place] [facility] [address] [id number] [place] [address] May, [facility] [place] [facility] [address] [facility] [id number] [place] [address] May, [facility] [place] [facility] [address] [facility] [id number] [place] [address] May, [facility] [place] [facility] [address] [facility] [id number] [place] [address] Apr, [facility] [place] [facility] [address] [facility] [id number] [place] [address] Apr, [facility] [place] [facility] [address] [facility] [id number] [place] [address] Apr, [facility] [place] [facility] [address] [facility] [id number] [place] [address] Apr, [facility] [place] [facility] [address] [facility] [id number] [place] [address] Apr, [facility] [place] [facility] [address] [id number] [place] [address] Apr, [facility] [place] [facility] [address] [facility] [id number] [place] [address] Apr, [facility] [place] [facility] [address] [facility] [id number] [place] [address] Mar, [facility] [place] [facility] [address] [id number] [place] [address] Mar, [facility] [place] [facility] [address] [id number] [place] [address] Mar, [facility] [place] [facility] [address] [id number] [place] [address] Mar, [facility] [place] [facility] [address] [id number] [place] [address] Mar, [facility] [place] [facility] [address] [id number] [place] [address] Mar, [facility] [place] [facility] [address] [id number] [place] [address] Mar, [facility] [place] [facility] [address] [id number] [place] [address] Mar, [facility] [place] [facility] [address] [id number] [place] [address] Mar, [facility] [place] [facility] [address] [id number] [place] [address] Mar, [facility] [place] [facility] [address] [id number] [place] [address] Mar, [facility] [place] [facility] [address] [id number] [place] [address] Mar, [facility] [place] [facility] [address] [id number] [place] [address] Mar, [facility] [place] [facility] [address] [id number] [place] [address] Mar, [facility] [place] [facility] [address] [id number] [place] [address] Mar, [facility] [place] [facility] [address] [id number] [place] [address] Feb, [facility] [place] [facility] [address] [id number] [place] [address] Feb, [facility] [place] [facility] [address] [id number] [place] [address] Feb, [facility] [place] [facility] [address] [id number] [place] [address] Feb, [facility] [place] [facility] [address] [facility] [id number] [place] [address] Feb, [facility] [place] [facility] [address] [id number] [place] [address] Feb, [facility] [place] [facility] [address] [id number] [place] [address] Jan, [facility] [place] [facility] [address] [id number] [place] [address] Jan, [facility] [place] [facility] [address] [id number] [place] [address] Jan, [facility] [place] [facility] [address] [id number] [place] [address] Jan, [facility] [place] [facility] [address] [id number] [place] [address] Jan, [facility] [place] [facility] [address] [id number] [place] [address] Jan, [facility] [place] [facility] [address] [id number] [address] 29 Dec, 2013 [facility] [place] [facility] [address] [id number] [address] 29 Dec, 2013 [facility] [place] [facility] [address] [id number] [place] [address] 26 Dec, 2013 [facility] [place] [facility] [address] [id number] [place] [address] 11 Dec, 2013 [facility] [place] [facility] [address] [id number] [place] [address] 11 Dec, 2013 [facility] [place] [facility] [address] [id number] [place] [address] 08 Sep, 2013 [facility] [place] [facility] [address] [id number] [place] [address] 08 Dec, 2013 [facility] [place] [facility] [address] [id number] [place] [address] Dec, 2013 [facility] [place] [facility] [address] [id number] [place] [address] Dec, 2013 [facility] [place] [facility] [address] [id number] [place] [address] Dec, 2013 [facility] [place] [facility] [address] [id number] [place] [address] Dec, 2013 [facility] [place] [facility] [address] [id number] [place] [address] Nov, [facility] [place] [facility] [address] [id number] [place] [address] Nov, [facility] [place] [facility] [address] [id number] [place] [address] Nov, [facility] [place] [facility] [address] [id number] [place] [address] Nov, [facility] [place] [facility] [address] [id number] [place] [address] Nov, [facility] [place] [facility] [address] [id number] [place] [address] Nov, [facility] [place] [facility] [address] [id number] [place] [address] Nov, [facility] [place] [facility] [address] [id number] [place] [address] Nov, [facility] [place] [facility] [address] [id number] [place] [address] Nov, [facility] [place] [facility] [address] [id number] [place] [address] Nov, [facility] [place] [facility] [address] [id number] [place] [address] Oct, [facility] [place] [facility] [address] [id number] [place] [address] Oct, [facility] [place] [facility] [address] [id number] [place] [address] Oct, [facility] [place] [facility] [address] [id number] [place] [address] Oct, [facility] [place] [facility] [address] [id number] [place] [address] Oct, [facility] [place] [facility] [address] [id number] [place] [address] Oct, [facility] [place] [facility] [address] [id number] [place] [address] Oct, [facility] [place] [facility] [address] [id number] [place] [address] Oct, [facility] [place] [facility] [address] [id number] [place] [address] Oct, [facility] [place] [facility] [address] [id number] [place] [address] Oct, [facility] [place] [facility] [address] [id number] [place] [address] Oct, [facility] [place] [facility] [address] [id number] [place] [address] Oct, [facility] [place] [facility] [address] [id number] [place] [address] Oct, [facility] [place] [facility] [address] [id number] [place] [address] Sep, [facility] [place] [facility] [address] [id number] [place] [address] Sep, [facility] [place] [facility] [address] [id number] [place] [address] Sep, [facility] [place] [facility] [address] [id number] [place] [address] Sep, [facility] [place] [facility] [address] [id number] [place] [address] August, [facility] [place] [facility] [address] [id number] [place] [address] August, [facility] [place] [facility] [address] [id number] [place] [address] August, [facility] [place] [facility] [address] [id number] [place] [address] August, [facility] [place] [facility] [address] [id number] [place] [address] August, [facility] [place] [facility] [address] [id number] [place] [address] August, [facility] [place] [facility] [address] [id number] [place] [address] August, [facility] [place] [facility] [address] [id number] [place] [address] August, [facility] [place] [facility] [address] [id number] [place] [address] Jul, [facility] [place] [facility] [address] [id number] [place] [address] Jul, [facility] [place] [facility] [address] [id number] [place] [address] Jun, [facility] [place] [facility] [address] [id number] [place] [address] Jun, [facility] [place] [facility] [address] [id number] [place] [address] Jun, [facility] [place] [facility] [address] [id number] [place] [address] Jun, [facility] [place] [facility] [address] [id number] [place] [address] Jun, [facility] [place] [facility] [address] [id number] [place] [address] Jun, [facility] [place] [facility] [address] [id number] [place] [address] May, [facility] [place] [facility] [address] [id number] [place] [address] May, [facility] [place] [facility] [address] [id number] [place] [address] May, [facility] [place] [facility] [address] [id number] [place] [address] May, [facility] [place] [facility] [address] [id number] [place] [address] May, [facility] [place] [facility] [address] [id number] [place] [address] May, [facility] [place] [facility] [address] [id number] [place] [address] Apr, [facility] [place] [facility] [address] [facility] [id number] [place] [address] Apr, [facility] [place] [facility] [address] [facility] [id number] [place] [address] 15 Feb, 2013 [facility] [place] [facility] [address] [id number] [place] [address] 15 Feb, 2013 [facility] [place] [facility] [address] [id number] [place] [address] 15 Feb, 2013 [facility] [place] [facility] [address] [id number] [place] [address] 15 Feb, 2013 [facility] [place] [facility] [address] [id number] [place] [address] 13 Feb, 2013 [facility] [place] [facility] [address] [id number] [place] [address] Feb, [facility] [place] [facility] [address] [id number] [place] [address] Feb, [facility] [place] [facility] [address] [id number] [place] [address] Feb, [facility] [place] [facility] [address] [id number] [place] [address] Feb, [facility] [place] [facility] [address] [id number] [place] [address] Jan, [facility] [place] [facility] [address] [id number] [place] [address] Jan, [facility] [place] [facility] [address] [id number] [place] [address] Jan, [facility] [place] [facility] [address] [id number] [place] [address] Jan, [facility] [place] [facility] [address] [id number] [place] [address] Jan, [facility] [place] [facility] [address] [id number] [place] [address] Jan, [facility] [place] [facility] [address] [id number] [place] [address] 17 Dec, 2012 [facility] [place] [facility] [address] [id number] [place] [address] 12 Dec, 2012 [facility] [place] [facility] [address] [id number] [place] [address] 05 Dec, 2012 [facility] [place] [facility] [address] [id number] [place] [address] 05 Dec, 2012 [facility] [place] [facility] [address] [address] [id number] [place] [address] Oct, [facility] [place] [facility] [address] [id number] [place] [address] Oct, [facility] [place] [facility] [address] [id number] [place] [address] Oct, [facility] [address] [id number] [place] [address] Oct, [facility] [address] [id number] [place] [address] Oct, [facility] [address] [id number] [place] [address] Sep, [facility] [address] [id number] [place] [address] August, [facility] [address] [id number] [place] [address] August, [facility] [address] [id number] [place] [address] August, [facility] [address] [id number] [place] [address] August, [facility] [address] [id number] [place] [address] August, [facility] [address] [id number] [place] [address] August, [facility] [address] [id number] [place] [address] August, [facility] [address] [id number] [place] [address] August, [facility] [address] [id number] [place] [address] August, [facility] [address] [id number] [place] [address] August, [facility] [address] [id number] [place] [address] August, [facility] [address] [id number] [place] [address] August, [facility] [address] [id number] [place] [address] Jun, [facility] [place] [facility] [address] [id number] [place] [address] Jun, [facility] [address] [id number] [place] [address] Jun, [facility] [place] [facility] [address] [id number] [place] [address] May, [facility] [address] [id number] [place] [address] May, [facility] [address] [id number] [place] [address] Mar, [facility] [address] [id number] [place] [address] Mar, [facility] [address] [id number] [place] [address] Feb, [facility] [place] [facility] [address] [id number] [place] [address] Feb, [facility] [address] [id number] [place] [address] Feb, [facility] [place] [facility] [address] [id number] [place] [address] Feb, [facility] [place] [facility] [address] [id number], [place] [address] Dec, [facility] [place] [facility] [address] [id number] [place] [address] August, [facility] [place] [facility] [address] [id number] [place] [address] Jul, [facility] [place] [facility] [address] [id number] [place] [address] Jul, [facility] [place] [facility] [address] [id number] [place] [address] 13 Jun, 2011 [facility] [address] [id number] [place] [address] 13 Jun, 2011 [facility] [place] [facility] [address] [id number] [place] [address] 09 Jun, 2011 [facility] [address] [id number] [place] [address] 06 Jun, 2011 [facility] [place] [facility] [address] [id number] [place] [address] 02 Jun, 2011 [facility] [place] [facility] [address] [id number] [place] [address] 21 May, 2011 [facility] [place] [facility] [address] [id number] [place] [address] 19 May, 2011 [facility] [address] [id number] [place] [address] 14 May, 2011 [facility] [address] [id number] [place] [address] 06 May, 2011 [facility] [place] [facility] [address] [id number] [place] [address] Apr, [facility] [address] [facility] [id number] [place] [address] Apr, [facility] [place] [facility] [address] [id number] [place] [address] Apr, [facility] [place] [facility] [address] [id number] [place] [address] Mar, [facility] [place] [facility] [address] [id number] [place] [address] Mar, [facility] [place] [facility] [address] [facility] [id number] [place] [address] Mar, [facility] [place] [facility] [address] [facility] [id number] [place] [address] Mar, [facility] [address] [facility] [id number], [place] [address] May, [facility] [address] [id number], [place] [address] Feb, [facility] [address] [facility] [id number], [place] [address] Feb, [facility] [address] [id number], [place] [address] Jan, [facility] [address] [facility] [id number], [place] [address] Jan, IMMUNIZATIONS No Known Immunizations SOCIAL HISTORY Never Assessed REASON FOR VISIT Controlled Med Refill 06/03/17 PLAN OF CARE VITAL SIGNS MEDICATIONS Medication Instructions Dosage Frequency Start Date End Date Duration Status Xanax 1 MG Orally Twice a day 1 tablet 12h Jun, 28 days Active Oxycodone HCl 10 MG Orally Once a day 1 tablet 24h May, 28 days Active RESULTS No Results PROCEDURES [...]
--- OUTSIDE RECORDS SUMMARY | 2018-09-19 01:43 | XMS REPORT ---
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 Providers Care Stripper Preliminary Name Role Phone SAMMY ARZATE CP Unavailable Allergies No Known Allergies Problems Problem Type Condition Code Onset Dates Condition Status Problem Other chronic nonalcoholic liver disease 571.8 Active Problem Major depressive disorder, recurrent episode, moderate 296.32 Active Problem Family history of other malignant neoplasm V16.49 Active Problem Diaphragmatic hernia without mention of obstruction or gangrene 553.3 Active Problem Cervicalgia 723.1 Active Problem Umbilical hernia without mention of obstruction or gangrene 553.1 Active Problem Family history of diabetes mellitus V18.0 Active Problem Other abnormal glucose 790.29 Active Problem Abdominal pain, generalized 789.07 Active Problem Abdominal pain, right lower quadrant 789.03 Active Problem Unspecified otalgia 388.70 Active Problem Unspecified neuralgia, neuritis, and radiculitis 729.2 Active Problem 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 Problem Other postprocedural status V45.89 Active Problem Chest pain, unspecified 786.50 Active Problem Anxiety state, unspecified 300.00 Active Problem Osteoarthritis, unspecified osteoarthritis type, unspecified site M19.90 Active Problem 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 Active Problem Panic disorder without agoraphobia 300.01 Active Problem Major depressive disorder, recurrent episode, severe, without mention of psychotic behavior 296.33 Active Problem Other chronic pain G89.29 Active Problem Umbilical hernia with obstruction 552.1 Active Problem Depressive disorder, not elsewhere classified 311 Active Problem Esophageal reflux 530.81 Active Problem 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 Active Problem Other abnormal blood chemistry 790.6 Active Problem Family history of malignant neoplasm of gastrointestinal tract V16.0 Active Problem Abnormal involuntary movements 781.0 Active Problem Essential hypertension, benign 401.1 Active Problem Abdominal pain, epigastric 789.06 Active Problem Other malaise and fatigue 780.79 Active Problem Lumbago 724.2 Active Problem Family history of other cardiovascular diseases V17.49 Active Problem Memory loss 780.93 Active Medications Medication Code System Code Instructions Start Date End Date Status Dosage Rapaflo [facility] [id number] 8 MG TAKE ONE CAPSULE BY MOUTH DAILY Results No Known Results Summary Purpose eClinicalWorks Submission
--- OUTSIDE RECORDS SUMMARY | 2018-09-19 01:43 | XMS REPORT ---
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 Active 533865911 Problem 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 Active 160799619 Problem Other chronic pain G89.29 Active 46343546 Problem Osteoarthritis, unspecified osteoarthritis type, unspecified site M19.90 Active 511570126 ALLERGIES No Information ENCOUNTERS Encounter Location Date Diagnosis [place] [id number] [place] [address] Jun, Osteoarthritis, unspecified osteoarthritis type, unspecified site M19.90 [place] [address], [place] [address] Jun, [place] [id number] [place] [address] Jun, Osteoarthritis, unspecified osteoarthritis type, unspecified site M19.90 [place] [address], [place] [address] May, [place] [address] [place] [address] May, Benign prostatic hyperplasia, unspecified whether lower urinary tract symptoms present N40.0 [place] [address] [place] [id number] [place] [address] May, Osteoarthritis, unspecified osteoarthritis type, unspecified site M19.90 [place] [address] [place] [address] May, [place] [address] [place] [id number] [place] [address] Apr, Other chronic pain G89.29 ; Family history of diabetes mellitus Z83.3 ; Forgetfulness R68.89 ; History of multiple concussions Z87.820 ; Gastroesophageal reflux disease without esophagitis K21.9 and Screening, lipid Z13.220 [place] [address] [place] [address] Apr, Other chronic pain G89.29 ; Forgetfulness R68.89 ; History of multiple concussions Z87.820 ; Gastroesophageal reflux disease without esophagitis K21.9 ; Screening, lipid Z13.220 and Family history of diabetes mellitus Z83.3 [place] [address] [place] [id number] [place] [address] Apr, Osteoarthritis, unspecified osteoarthritis type, unspecified site M19.90 [place] [address] [place] [id number] [place] [address] Apr, Osteoarthritis, unspecified osteoarthritis type, unspecified site M19.90 [place] [address], [place] [address] Apr, [place] [address] [place] [id number] [place] [address] Mar, Osteoarthritis, unspecified osteoarthritis type, unspecified site M19.90 [place] [address] [place] [address] Feb, Osteoarthritis, unspecified osteoarthritis type, unspecified site M19.90 [place] [address] [place] [address] Jan, Osteoarthritis, unspecified osteoarthritis type, unspecified site M19.90 [place] [address] [place] [id number] [address] Dec, Osteoarthritis, unspecified osteoarthritis type, unspecified site M19.90 [facility] [address] [place] [id number] [place] [address] Dec, [facility] [address] [place] [id number] [place] [address] Nov, Encounter for screening for lipid disorder Z13.220 [place] [address] [place] [id number] [place] [address] Nov, Osteoarthritis, unspecified osteoarthritis type, unspecified site M19.90 ; Encounter for screening for lipid disorder Z13.220 and Other chronic pain G89.29 [place] [address] [place] [id number] [place] [address] Nov, Osteoarthritis, unspecified osteoarthritis type, unspecified site M19.90 [place] [address] [place] [id number] [place] [address] Nov, [place] [address] [place] [id number] [place] [address] Nov, [place] [address] [place] [id number] [place] [address] Oct, Osteoarthritis, unspecified osteoarthritis type, unspecified site M19.90 [place] [address] [place] [address] Oct, Gastroesophageal reflux disease without esophagitis K21.9 [facility] [address] [place] [address] Sep, Osteoarthritis, unspecified osteoarthritis type, unspecified site M19.90 [place] [address] [place] [id number] [place] [address] August, Osteoarthritis, unspecified osteoarthritis type, unspecified site M19.90 [place] [address], [place] [address] August, Osteoarthritis, unspecified osteoarthritis type, unspecified site M19.90 [facility] [address] [id number] [address] Jul, Osteoarthritis, unspecified osteoarthritis type, unspecified site M19.90 and Gastroesophageal reflux disease without esophagitis K21.9 [facility] [address] [place] [id number] [place] [address] Jul, Osteoarthritis, unspecified osteoarthritis type, unspecified site M19.90 [facility] [address] [place] [id number] [place] [address] Jun, Ventral hernia without obstruction or gangrene K43.9 [place] [address] [place] [id number] [place] [address] Jun, Osteoarthritis, unspecified osteoarthritis type, unspecified site M19.90 [place] [address] [place] [id number] [place] [address] May, [facility] [address] [place] [id number] [place] [address] May, Osteoarthritis, unspecified osteoarthritis type, unspecified site M19.90 [facility] [address] [place] [id number] [place] [address] Apr, Osteoarthritis, unspecified osteoarthritis type, unspecified site M19.90 [facility] [address] [place] [id number] [address] Mar, [facility] [address] [place] [id number] [place] [address] Mar, Osteoarthritis, unspecified osteoarthritis type, unspecified site M19.90 and Lumbago with sciatica, left side M54.42 [facility] [address] [place] [id number] [place] [address] Feb, [facility] [address] [id number] [address] Feb, [facility] [id number] [address] Feb, Osteoarthritis, unspecified osteoarthritis type, unspecified site M19.90 [facility] [address] [place] [id number] [place] [address] Feb, [facility] [address] [place] [id number] [place] [address] Feb, Low back pain M54.5 and Other chronic pain G89.29 [facility] [address] [place] [id number] [place] [address] Feb, [facility] [address] [place] [id number] [place] [address] Jan, [facility] [address] [place] [id number] [place] [address] Jan, [facility] [address] [place] [id number] [place] [address] 24 Dec, 2015 Lumbago with sciatica, left side M54.42 [facility] [address] [place] [id number] [place] [address] 15 Dec, 2015 Irritable bowel syndrome with both constipation and diarrhea K58.0 ; Screening, lipid Z13.220 ; Nocturia R35.1 ; Family history of diabetes mellitus Z83.3 and Dysuria R30.0 [place] [address] [place] [address] 14 Dec, 2015 Irritable bowel syndrome with both constipation and diarrhea K58.0 ; Nocturia R35.1 ; Family history of diabetes mellitus Z83.3 ; Dysuria R30.0 and Screening, lipid Z13.220 [facility] [address] [place] [id number] [place] [address] 12 Dec, 2015 [facility] [address] [place] [id number] [place] [address] 07 Dec, 2015 [facility] [address] [place] [id number] [place] [address] Dec, Pain with swallowing R13.10 [facility] [address] [place] [id number] [place] [address] Nov, [facility] [address] [place] [id number] [place] [address] Nov, [facility] [address] [place] [id number] [place] [address] Oct, [facility] [address] [place] [id number] [place] [address] Sep, [facility] [address] [place] [id number] [place] [address] Sep, Osteoarthritis, unspecified osteoarthritis type, unspecified site M19.90 [facility] [address] [place] [id number] [place] [address] 07 Sep, 2015 Back pain M54.9 [facility] [address] [place] [id number] [place] [address] Sep, Lumbago with sciatica, right side M54.41 and Bilateral impacted cerumen H61.23 [facility] [address] [place] [id number] [place] [address] Sep, [facility] [address] [place] [address] [id number] [place] [address] August, Bronchitis J40 [facility] [address] [place] [id number] [place] [address] August, [facility] [address] [place] [id number] [place] [address] August, [facility] [address] [id number] [place] [address] August, [facility] [address] [place] [id number] [place] [address] Jul, [facility] [address] [place] [id number] [place] [address] Jul, Back pain M54.9 [facility] [address] [place] [id number] [place] [address] Jun, Degenerative disc disease at L5-S1 level M51.36 and Bronchitis J40 [facility] [address] [place] [id number] [place] [address] Jun, [facility] [address] [address] May, [facility] [address] [place] [id number] [place] [address] Apr, [facility] [address] [address] Mar, [facility] [address] [place] [id number] [place] [id number] Mar, [facility] [address] [place] [id number] [place] [address] Feb, [facility] [address] [id number] [place] [phone] Jan, [facility] [address] [place] [id number] [place] [address] Dec, [facility] [address] [place] [id number] [place] [address] Nov, [facility] [address] [place] [id number] [place] [address] Oct, [facility] [address] [place] [id number] [place] [address] Oct, Right shoulder pain 719.41 [facility] [address] [address] Sep, [facility] [address] [place] [id number] [place] [address] Sep, Vertigo 780.4 and Elbow fracture, right 812.40 [facility] [place] [facility] [address] [id number] [place] [address] 08 Sep, 2014 [facility] [place] [facility] [address] [id number] [place] [address] August, [facility] [place] [facility] [address] [id number] [place] [address] Jul, [facility] [place] [facility] [address] [id number] [place] [address] Jul, [facility] [place] [facility] [address] [id number] [place] [address] Jun, [facility] [place] [facility] [address] [id number] [place] [address] Jun, [facility] [place] [facility] [address] [id number] [place] [address] Jun, [facility] [place] [facility] [address] [id number] [place] [address] Jun, [facility] [place] [facility] [address] [id number] [place] [address] Jun, [facility] [place] [facility] [address] [id number] [place] [address] Jun, [facility] [place] [facility] [address] [id number] [place] [address] May, [facility] [place] [facility] [address] [id number], [place] [address] May, [facility] [place] [facility] [address] [id number] [place] [address] May, [facility] [place] [facility] [address] [id number] [place] [address] May, [facility] [place] [facility] [address] [id number] [place] [address] May, [facility] [place] [facility] [address] [id number] [place] [address] May, [facility] [place] [facility] [address] [id number] [place] [address] Apr, [facility] [place] [facility] [address] [id number] [place] [address] Apr, [facility] [place] [facility] [address] [id number] [place] [address] Apr, [facility] [place] [facility] [address] [id number] [place] [address] Apr, [facility] [place] [facility] [address] [id number] [place] [address] Apr, [facility] [place] [facility] [address] [id number] [place] [address] Apr, [facility] [place] [facility] [address] [id number] [place] [address] Apr, [facility] [place] [facility] [address] [id number] [place] [address] Mar, [facility] [place] [facility] [address] [id number] [place] [address] Mar, [facility] [place] [facility] [address] [facility] [id number] [place] [address] Mar, [facility] [place] [facility] [address] [id number] [place] [address] 31 Mar, 2014 [facility] [place] [facility] [address] [id number] [place] [address] 31 Mar, 2014 [facility] [place] [facility] [address] [id number] [place] [address] Mar, [facility] [place] [facility] [address] [id number] [place] [address] 30 Mar, 2014 [facility] [place] [facility] [address] [id number] [place] [address] 30 Mar, 2014 [facility] [place] [facility] [address] [id number] [place] [address] Mar, [facility] [place] [facility] [address] [id number] [place] [address] Mar, [facility] [place] [facility] [address] [id number] [place] [address] Mar, [facility] [place] [facility] [address] [id number] [place] [address] Mar, [facility] [place] [facility] [address] [id number] [place] [address] Mar, [facility] [place] [facility] [address] [id number] [place] [address] Mar, [facility] [place] [facility] [address] [id number] [place] [address] Mar, [facility] [place] [facility] [address] [id number] [place] [address] Feb, [facility] [place] [facility] [address] [id number] [place] [address] Feb, [facility] [place] [facility] [address] [id number] [place] [address] Feb, [facility] [place] [facility] [address] [id number] [place] [address] Feb, [facility] [place] [facility] [address] [id number] [place] [address] Feb, [facility] [place] [facility] [address] [id number] [place] [address] Feb, [facility] [place] [facility] [address] [id number] [place] [address] Jan, [facility] [place] [facility] [address] [id number] [place] [address] Jan, [facility] [place] [facility] [address] [id number], [place] [address] 08 Jan, 2014 [facility] [place] [facility] [address] [id number] [place] [address] 08 Jan, 2014 [facility] [place] [facility] [address] [id number] [place] [address] Jan, [facility] [place] [facility] [address] [id number] [place] [address] Jan, [facility] [place] [facility] [address] [id number] [place] [address] 29 Dec, 2013 [facility] [place] [facility] [address] [id number] [place] [address] 29 Dec, 2013 [facility] [place] [facility] [address] [id number] [place] [address] 26 Dec, 2013 [facility] [place] [facility] [address] [id number] [place] [address] Dec, 2013 [facility] [place] [facility] [address] [id number] [place] [address] Dec, 2013 [facility] [place] [facility] [address] [id number] [place] [address] 08 Dec, 2013 [facility] [place] [facility] [address] [id number] [place] [address] 08 Dec, 2013 [facility] [place] [facility] [address] [id number], [place] [address] 08 Dec, 2013 [facility] [place] [facility] [address] [id number], [place] [address] 08 Dec, 2013 [facility] [place] [facility] [address] [id number] [place] [address] Dec, 2013 [facility] [place] [facility] [address] [id number] [place] [address] Dec, 2013 [facility] [place] [facility] [address] [id number] [place] [address] Nov, [facility] [place] [facility] [address] [id number] [place] [address] Nov, [facility] [place] [facility] [address] [id number] [place] [address] Nov, [facility] [place] [facility] [address] [id number] [place] [address] Nov, [facility] [place] [facility] [address] [id number] [place] [address] Nov, [facility] [place] [facility] [address] [id number] [place] [address] Nov, [facility] [place] [facility] [address] [id number] [place] [address] Nov, [facility] [place] [facility] [address] [id number] [place] [address] Nov, [facility] [place] [facility] [address] [id number] [place] [address] Nov, [facility] [place] [facility] [address] [id number] [place] [address] Nov, [facility] [place] [facility] [address] [id number] [place] [address] Oct, [facility] [place] [facility] [address] [id number] [place] [address] Oct, [facility] [place] [facility] [address] [id number] [place] [address] Oct, [facility] [place] [facility] [address] [id number] [place] [address] Oct, [facility] [place] [facility] [address] [id number] [place] [address] Oct, [facility] [place] [facility] [address] [id number] [place] [address] Oct, [facility] [place] [facility] [address] [id number] [place] [address] Oct, [facility] [place] [facility] [address] [id number] [place] [address] Oct, [facility] [place] [facility] [address] [id number] [place] [address] Oct, [facility] [place] [facility] [address] [id number] [place] [address] Oct, [facility] [place] [facility] [address] [id number] [place] [address] Oct, [facility] [place] [facility] [address] [id number] [place] [address] Oct, [facility] [place] [facility] [address] [id number] [place] [address] Oct, [facility] [place] [facility] [address] [id number] [place] [address] Sep, [facility] [place] [facility] [address] [id number] [place] [address] Sep, [facility] [place] [facility] [address] [id number] [place] [address] Sep, [facility] [place] [facility] [address] [id number] [place] [address] Sep, [facility] [place] [facility] [address] [id number] [place] [address] August, [facility] [place] [facility] [address] [id number] [place] [address] August, [facility] [place] [facility] [address] [id number] [place] [address] August, [facility] [place] [facility] [address] [id number] [place] [address] August, [facility] [place] [facility] [address] [id number] [place] [address] August, [facility] [place] [facility] [address] [id number] [place] [address] August, [facility] [place] [facility] [address] [id number] [place] [address] August, [facility] [place] [facility] [address] [id number] [place] [address] August, [facility] [place] [facility] [address] [id number] [place] [address] Jul, [facility] [place] [facility] [address] [id number] [place] [address] Jul, [facility] [place] [facility] [address] [id number] [place] [address] Jun, [facility] [place] [facility] [address] [id number] [place] [address] Jun, [facility] [place] [facility] [address] [facility] [id number] [place] [address] Jun, [facility] [place] [facility] [address] [id number] [place] [address] Jun, [facility] [place] [facility] [address] [id number] [place] [address] Jun, [facility] [place] [facility] [address] [facility] [id number] [place] [address] Jun, [facility] [place] [facility] [address] [id number] [place] [address] May, [facility] [place] [facility] [address] [id number] [place] [address] May, [facility] [place] [facility] [address] [id number] [place] [address] May, [facility] [place] [facility] [address] [id number] [place] [address] May, [facility] [place] [facility] [address] [id number] [place] [address] May, [facility] [place] [facility] [address] [id number] [place] [address] 07 May, 2013 [facility] [place] [facility] [address] [id number] [place] [address] Apr, [facility] [place] [facility] [address] [id number] [place] [address] Apr, [facility] [place] [facility] [address] [id number] [place] [address] 15 Feb, 2013 [facility] [place] [facility] [address] [id number] [place] [address] 15 Feb, 2013 [facility] [place] [facility] [address] [id number] [place] [address] Feb, [facility] [place] [facility] [address] [id number] [place] [address] 15 Feb, 2013 [facility] [place] [facility] [address] [id number] [place] [address] Feb, [facility] [place] [facility] [address] [id number] [place] [address] Feb, [facility] [place] [facility] [address] [id number], [place] [address] Feb, [facility] [place] [facility] [address] [id number] [place] [address] Feb, [facility] [place] [facility] [address] [id number], [place] [address] 08 Feb, 2013 [facility] [place] [facility] [address] [id number], [place] [address] Jan, [facility] [place] [facility] [address] [id number] [place] [address] 27 Jan, 2013 [facility] [place] [facility] [address] [id number], [place] [address] 10 Jan, 2013 [facility] [place] [facility] [address] [id number], [place] [address] Jan, [facility] [place] [facility] [address] [id number] [place] [address] Jan, [facility] [place] [facility] [address] [id number] [place] [address] Jan, [facility] [place] [facility] [address] [id number] [place] [address] Dec, [facility] [place] [facility] [address] [id number] [place] [address] Dec, [facility] [place] [facility] [address] [id number] [place] [address] 05 Dec, 2012 [facility] [place] [facility] [address] [id number] [place] [address] Dec, [facility] [place] [facility] [address] [id number] [place] [address] Oct, [facility] [place] [facility] [address] [id number] [place] [address] Oct, [facility] [place] [facility] [address] [id number] [place] [address] Oct, [facility] [place] [facility] [address] [id number] [place] [address] Oct, [facility] [place] [facility] [address] [id number] [place] [address] Oct, [facility] [place] [facility] [address] [id number] [place] [address] Sep, [facility] [place] [facility] [address] [id number] [place] [address] August, [facility] [place] [facility] [address] [id number] [place] [address] August, [facility] [place] [facility] [address] [id number] [place] [address] August, [facility] [place] [facility] [address] [id number] [place] [address] August, [facility] [address] [id number] [place] [address] August, [facility] [address] [id number] [place] [address] August, [facility] [address] [id number] [place] [address] August, [facility] [address] [id number] [place] [address] August, [facility] [address] [id number] [place] [address] August, [facility] [address] [id number] [place] [address] August, [facility] [address] [id number] [place] [address] August, [facility] [address] [id number] [place] [address] August, [facility] [address] [id number] [place] [address] Jun, [facility] [address] [id number] [place] [address] Jun, [facility] [address] [id number] [place] [address] Jun, [facility] [address] [id number] [place] [address] May, [facility] [address] [id number] [place] [address] May, [facility] [address] [id number] [place] [address] Mar, [facility] [address] [id number] [place] [address] Mar, [facility] [place] [facility] [address] [id number] [place] [address] Feb, [facility] [place] [facility] [address] [id number] [place] [address] Feb, [facility] [place] [facility] [address] [id number] [place] [address] Feb, [facility] [place] [facility] [address] [id number] [place] [address] Feb, [facility] [place] [facility] [address] [id number] [place] [address] Dec, [facility] [place] [facility] [address] [id number] [place] [address] August, [facility] [place] [facility] [address] [facility] [id number] [place] [address] Jul, [facility] [place] [facility] [address] [id number] [place] [address] 05 Jul, 2011 [facility] [place] [facility] [address] [id number] [place] [address] Jun, [facility] [place] [facility] [address] [id number], [place] [address] Jun, [facility] [place] [facility] [address] [id number], [place] [address] Jun, [facility] [place] [facility] [address] [id number], [place] [address] Jun, [facility] [place] [facility] [address] [id number] [place] [address] Jun, [facility] [place] [facility] [address] [id number], [place] [address] May, [facility] [place] [facility] [address] [id number] [place] [address] May, [facility] [place] [facility] [id number], [place] [address] 14 May, 2011 [facility] [id number], [place] [address] May, [facility] [id number], [place] [address] Apr, [facility] [id number] [place] [address] Apr, [facility] [id number] [place] [address] Apr, [facility] [id number] [place] [address] Mar, [facility] [id number] [place] [address] Mar, [facility] [id number] [place] [address] Mar, [facility] [id number], [place] [address] Mar, [facility] [id number] [place] [address] May, [facility] [id number], [place] [address] Feb, [facility] [id number], [place] [address] Feb, [facility] [id number], [place] [address] Jan, [facility] [id number], [place] [address] Jan, IMMUNIZATIONS No Known Immunizations SOCIAL HISTORY Never Assessed REASON FOR VISIT Lab (walk-in)--[facility], later [facility] PLAN OF CARE VITAL SIGNS MEDICATIONS Unknown Medications RESULTS No Results PROCEDURES Procedure Date Ordered Result Body Site LAB NOT BILLED BY [facility] Dec 24, 2016 TYREE SHINE* Dec 24, 2016 INSTRUCTIONS MEDICATIONS ADMINISTERED No Known Medications MEDICAL [...]
--- OUTSIDE RECORDS SUMMARY | 2018-09-19 01:44 | XMS REPORT ---
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 Active 631114753 Problem 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 Active 170616729 Problem Other chronic pain G89.29 Active 94328233 Problem Osteoarthritis, unspecified osteoarthritis type, unspecified site M19.90 Active 129505396 ALLERGIES No Information ENCOUNTERS Encounter Location Date Diagnosis [place] [address] [address] August, Other chronic pain G89.29 and Other specified personal risk factors, not elsewhere classified Z91.89 [place] [address] [place] [id number] [place] [address] August, Osteoarthritis, unspecified osteoarthritis type, unspecified site M19.90 [place] [address] [address] Jul, Osteoarthritis, unspecified osteoarthritis type, unspecified site M19.90 [place] [address] [address] Jun, Osteoarthritis, unspecified osteoarthritis type, unspecified site M19.90 [place] [address] [address] Jun, [place] [address] [address] Jun, Osteoarthritis, unspecified osteoarthritis type, unspecified site M19.90 [place] [address] [address] May, [place] [address] [address] May, Benign prostatic hyperplasia, unspecified whether lower urinary tract symptoms present N40.0 [place] [id number] [place] [address] May, Osteoarthritis, unspecified osteoarthritis type, unspecified site M19.90 [place] [id number] [place] [address] May, [place] [id number] [place] [address] Apr, Other chronic pain G89.29 ; Family history of diabetes mellitus Z83.3 ; Forgetfulness R68.89 ; History of multiple concussions Z87.820 ; Gastroesophageal reflux disease without esophagitis K21.9 and Screening, lipid Z13.220 [place] [address] [address] Apr, Other chronic pain G89.29 ; Forgetfulness R68.89 ; History of multiple concussions Z87.820 ; Gastroesophageal reflux disease without esophagitis K21.9 ; Screening, lipid Z13.220 and Family history of diabetes mellitus Z83.3 [place] [address] [address] Apr, Osteoarthritis, unspecified osteoarthritis type, unspecified site M19.90 [place] [address] [address] Apr, Osteoarthritis, unspecified osteoarthritis type, unspecified site M19.90 [place] [address] [address] Apr, [place] [address] [address] Mar, Osteoarthritis, unspecified osteoarthritis type, unspecified site M19.90 [facility] [address] [address] Feb, Osteoarthritis, unspecified osteoarthritis type, unspecified site M19.90 [facility] [address] [address] Jan, Osteoarthritis, unspecified osteoarthritis type, unspecified site M19.90 [facility] [address] [address] Dec, Osteoarthritis, unspecified osteoarthritis type, unspecified site M19.90 [facility] [address] [address] Dec, [place] [address] [place] [id number] [place] [address] Nov, Encounter for screening for lipid disorder Z13.220 [facility] [address] [address] Nov, Osteoarthritis, unspecified osteoarthritis type, unspecified site M19.90 ; Encounter for screening for lipid disorder Z13.220 and Other chronic pain G89.29 [facility] [address] [address] Nov, Osteoarthritis, unspecified osteoarthritis type, unspecified site M19.90 [facility] [address] [address] Nov, [facility] [address] [address] Nov, [facility] [address] [address] Oct, Osteoarthritis, unspecified osteoarthritis type, unspecified site M19.90 [facility] [address] [address] Oct, Gastroesophageal reflux disease without esophagitis K21.9 [facility] [address] [place] [id number] [place] [address] Sep, Osteoarthritis, unspecified osteoarthritis type, unspecified site M19.90 [facility] [address] [place] [id number] [place] [address] August, Osteoarthritis, unspecified osteoarthritis type, unspecified site M19.90 [place] [address] [place] [id number] [place] [address] August, Osteoarthritis, unspecified osteoarthritis type, unspecified site M19.90 [place] [address] [place] [id number] [place] [address] Jul, Osteoarthritis, unspecified osteoarthritis type, unspecified site M19.90 and Gastroesophageal reflux disease without esophagitis K21.9 [place] [address] [place] [id number] [place] [address] Jul, Osteoarthritis, unspecified osteoarthritis type, unspecified site M19.90 [place] [address] [place] [id number] [place] [address] Jun, Ventral hernia without obstruction or gangrene K43.9 [place] [address] [place] [id number] [place] [address] Jun, Osteoarthritis, unspecified osteoarthritis type, unspecified site M19.90 [place] [address] [place] [id number] [place] [address] May, [place] [address] [place] [id number] [place] [address] May, Osteoarthritis, unspecified osteoarthritis type, unspecified site M19.90 [facility] [address] [place] [id number] [place] [address] Apr, Osteoarthritis, unspecified osteoarthritis type, unspecified site M19.90 [place] [address] [place] [id number] [place] [address] Mar, [facility] [id number] [place] [address] Mar, Osteoarthritis, unspecified osteoarthritis type, unspecified site M19.90 and Lumbago with sciatica, left side M54.42 [facility] [address] [place] [id number] [place] [address] Feb, [facility] [address] [place] [id number] [place] [address] Feb, [facility] [address] [place] [id number] [place] [address] Feb, Osteoarthritis, unspecified osteoarthritis type, unspecified site M19.90 [facility] [address] [place] [id number] [place] [address] Feb, [place] [address] [place] [id number] [place] [address] Feb, Low back pain M54.5 and Other chronic pain G89.29 [place] [address] [place] [id number] [place] [address] Feb, [facility] [address] [place] [id number] [place] [address] Jan, [facility] [address] [place] [id number] [place] [address] Jan, [facility] [address] [place] [id number] [place] [address] 24 Dec, 2015 Lumbago with sciatica, left side M54.42 [facility] [address] [place] [id number] [place] [address] 15 Dec, 2015 Irritable bowel syndrome with both constipation and diarrhea K58.0 ; Screening, lipid Z13.220 ; Nocturia R35.1 ; Family history of diabetes mellitus Z83.3 and Dysuria R30.0 [facility] [address] [place] [id number] [place] [address] 14 Dec, 2015 Irritable bowel syndrome with both constipation and diarrhea K58.0 ; Nocturia R35.1 ; Family history of diabetes mellitus Z83.3 ; Dysuria R30.0 and Screening, lipid Z13.220 [facility] [address] [place] [id number] [place] [address] 12 Dec, 2015 [facility] [address] [address] 07 Dec, 2015 [facility] [address] [place] [id number] [place] [address] Dec, Pain with swallowing R13.10 [place] [address] [address] Nov, [place] [address] [place] [id number] [place] [address] Nov, [facility] [address] [address] Oct, [place] [address] [place] [id number] [place] [address] Sep, [place] [address] [address] Sep, Osteoarthritis, unspecified osteoarthritis type, unspecified site M19.90 [place] [address] [place] [id number] [place] [address] Sep, Back pain M54.9 [place] [address] [place] [id number] [place] [address] Sep, Lumbago with sciatica, right side M54.41 and Bilateral impacted cerumen H61.23 [facility] [address] [place] [id number] [place] [address] Sep, [facility] [address] [place] [id number] [place] [address] August, Bronchitis J40 [place] [address], [place] [address] August, [facility] [id number] [place] [address] August, [facility] [address], [place] [address] August, [facility] [address] [place] [id number] [place] [address] Jul, [facility] [address] [place] [id number] [place] [address] Jul, Back pain M54.9 [facility] [address] [place] [id number] [place] [address] Jun, Degenerative disc disease at L5-S1 level M51.36 and Bronchitis J40 [facility] [address] [place] [id number] [place] [address] Jun, [facility] [address] [place] [id number] [address] May, [facility] [address] [place] [id number] [place] [address] Apr, [facility] [address] [place] [id number] [address] Mar, [facility] [address] [address] Mar, [facility] [address], [place] [address] Feb, [facility] [id number] [place] [address] Jan, [facility] [address] [place] [id number] [address] Dec, [facility] [address], [place] [address] Nov, [facility] [address] [facility] [id number] [address] Oct, [facility] [address], [place] [address] Oct, Right shoulder pain 719.41 [facility] [address], [place] [address] Sep, [facility] [address] [place] [id number] [place] [address] Sep, Vertigo 780.4 and Elbow fracture, right 812.40 [facility] [address] [place] [id number] [place] [address] Sep, [facility] [address] [place] [id number] [address] August, [facility] [id number] [place] [address] Jul, [facility] [address] [address] Jul, [facility] [address], [place] [address] Jun, [facility] [address] [address] Jun, [facility] [address] [place] [address] Jun, [facility] [address] [address] Jun, [facility] [address] [address] Jun, [facility] [address] [place] [id number] [address] Jun, [facility] [address] [address] May, [facility] [place] [facility] [address] [id number] [place] [address] May, [facility] [place] [facility] [address] [id number] [place] [address] May, [facility] [place] [facility] [address] [id number] [place] [address] May, [facility] [place] [facility] [address] [id number] [place] [address] May, [facility] [place] [facility] [address] [id number] [place] [address] May, [facility] [place] [facility] [address] [id number] [place] [address] Apr, [facility] [place] [facility] [address] [id number] [place] [address] Apr, [facility] [place] [facility] [address] [id number] [place] [address] Apr, [facility] [place] [facility] [address] [id number] [place] [address] Apr, [facility] [place] [facility] [address] [facility] [id number] [place] [address] Apr, [facility] [place] [facility] [address] [id number] [place] [address] Apr, [facility] [place] [facility] [address] [id number] [place] [address] Apr, [facility] [place] [facility] [address] [id number] [place] [address] Mar, [facility] [place] [facility] [address] [id number] [place] [address] Mar, [facility] [place] [facility] [address] [id number] [place] [address] Mar, [facility] [place] [facility] [address] [id number] [address] Mar, [facility] [place] [facility] [address] [id number] [place] [address] Mar, [facility] [place] [facility] [address] [id number] [place] [address] Mar, [facility] [place] [facility] [address] [facility] [id number] [place] [address] Mar, [facility] [place] [facility] [address] [id number] [place] [address] Mar, [facility] [place] [facility] [address] [id number] [place] [address] Mar, [facility] [place] [facility] [address] [id number] [place] [address] Mar, [facility] [place] [facility] [address] [facility] [id number] [place] [address] Mar, [facility] [place] [facility] [address] [id number] [place] [address] Mar, [facility] [place] [facility] [address] [id number] [place] [address] Mar, [facility] [place] [facility] [address] [facility] [id number] [place] [address] Mar, [facility] [place] [facility] [address] [id number] [place] [address] Mar, [facility] [place] [facility] [address] [id number] [address] Feb, [facility] [place] [facility] [address] [id number] [place] [address] Feb, [facility] [place] [facility] [address] [facility] [id number] [place] [address] Feb, [facility] [place] [facility] [address] [facility] [id number] [place] [address] Feb, [facility] [place] [facility] [address] [id number] [place] [address] Feb, [facility] [place] [facility] [address] [id number] [place] [address] Feb, [facility] [place] [facility] [address] [id number] [place] [address] Jan, [facility] [place] [facility] [address] [id number] [place] [address] Jan, [facility] [place] [facility] [address] [id number] [place] [address] Jan, [facility] [place] [facility] [address] [id number] [place] [address] Jan, [facility] [place] [facility] [address] [id number] [place] [address] Jan, [facility] [place] [facility] [address] [id number] [place] [address] Jan, [facility] [place] [facility] [address] [id number] [place] [address] 29 Dec, 2013 [facility] [place] [facility] [address] [id number] [place] [address] 29 Dec, 2013 [facility] [place] [facility] [address] [id number] [place] [address] 26 Dec, 2013 [facility] [place] [facility] [address] [id number] [place] [address] 11 Dec, 2013 [facility] [place] [facility] [address] [id number] [place] [address] 11 Dec, 2013 [facility] [place] [facility] [address] [id number] [place] [address] 08 Dec, 2013 [facility] [place] [facility] [address] [id number] [place] [address] 08 Dec, 2013 [facility] [place] [facility] [address] [id number] [place] [address] Dec, [facility] [place] [facility] [address] [id number] [place] [address] Dec, [facility] [place] [facility] [address] [id number] [place] [address] Dec, [facility] [place] [facility] [address] [id number] [place] [address] Dec, [facility] [place] [facility] [address] [id number] [place] [address] Nov, [facility] [place] [facility] [address] [id number] [place] [address] Nov, [facility] [place] [facility] [address] [id number] [place] [address] Nov, [facility] [place] [facility] [address] [id number] [place] [address] Nov, [facility] [place] [facility] [address] [id number] [place] [address] Nov, [facility] [place] [facility] [address] [id number] [place] [address] Nov, [facility] [place] [facility] [address] [id number] [place] [address] Nov, [facility] [place] [facility] [address] [id number] [address] Nov, [facility] [place] [facility] [address] [id number], [place] [address] Nov, [facility] [place] [facility] [address] [id number] [place] [address] Nov, [facility] [place] [facility] [address] [id number] [place] [address] Oct, [facility] [place] [facility] [address] [id number] [place] [address] Oct, [facility] [place] [facility] [address] [id number] [place] [address] Oct, [facility] [place] [facility] [address] [id number] [place] [address] Oct, [facility] [place] [facility] [address] [id number] [place] [address] Oct, [facility] [place] [facility] [address] [id number] [place] [address] Oct, [facility] [place] [facility] [address] [id number] [place] [address] Oct, [facility] [place] [facility] [address] [id number] [place] [address] Oct, [facility] [place] [facility] [address] [id number] [place] [address] Oct, [facility] [place] [facility] [address] [id number] [place] [address] Oct, [facility] [place] [facility] [address] [id number] [place] [address] Oct, [facility] [place] [facility] [address] [id number] [place] [address] Oct, [facility] [place] [facility] [address] [id number] [place] [address] Oct, [facility] [place] [facility] [address] [id number] [place] [address] Sep, [facility] [place] [facility] [address] [id number] [place] [address] Sep, [facility] [place] [facility] [address] [id number] [place] [address] Sep, [facility] [place] [facility] [address] [id number] [place] [address] Sep, [facility] [place] [facility] [address] [id number] [place] [address] August, [facility] [place] [facility] [address] [id number] [place] [address] August, [facility] [place] [facility] [address] [id number] [place] [address] August, [facility] [place] [facility] [address] [id number] [place] [address] August, [facility] [place] [facility] [address] [id number] [place] [address] August, [facility] [place] [facility] [address] [id number] [place] [address] August, [facility] [place] [facility] [address] [id number] [place] [address] August, [facility] [place] [facility] [address] [id number] [place] [address] August, [facility] [address] [id number] [place] [address] Jul, [facility] [place] [facility] [address] [id number] [place] [address] Jul, [facility] [place] [facility] [address] [id number] [place] [address] Jun, [facility] [place] [facility] [address] [id number] [place] [address] Jun, [facility] [place] [facility] [address] [id number] [place] [address] Jun, [facility] [place] [facility] [address] [id number] [place] [address] Jun, [facility] [place] [facility] [address] [id number] [place] [address] Jun, [facility] [place] [facility] [address] [id number] [place] [address] Jun, [facility] [place] [facility] [address] [id number] [place] [address] May, [facility] [place] [facility] [address] [id number] [place] [address] May, [facility] [place] [facility] [address] [id number] [place] [address] 14 May, 2013 [facility] [place] [facility] [address] [id number] [place] [address] 14 May, 2013 [facility] [place] [facility] [address] [id number] [place] [address] May, [facility] [place] [facility] [address] [id number] [place] [address] May, [facility] [place] [facility] [address] [id number] [place] [address] Apr, [facility] [place] [facility] [address] [id number] [place] [address] Apr, [facility] [place] [facility] [address] [id number] [place] [address] 15 Feb, 2013 [facility] [place] [facility] [address] [id number] [place] [address] 15 Feb, 2013 [facility] [place] [facility] [address] [facility] [id number] [place] [address] 15 Feb, 2013 [facility] [place] [facility] [address] [id number] [place] [address] 15 Feb, 2013 [facility] [place] [facility] [address] [id number] [place] [address] 13 Feb, 2013 [facility] [place] [facility] [address] [id number] [place] [address] 13 Feb, 2013 [facility] [place] [facility] [address] [id number] [place] [address] 11 Feb, 2013 [facility] [place] [facility] [address] [id number] [address] 11 Feb, 2013 [facility] [place] [facility] [address] [id number] [place] [address] 08 Feb, 2013 [facility] [place] [facility] [address] [id number] [place] [address] Jan, 2012 [facility] [place] [facility] [address] [id number] [place] [address] Jan, 2012 [facility] [place] [facility] [address] [id number] [place] [address] Jan, [facility] [place] [facility] [address] [id number] [place] [address] Jan, [facility] [place] [facility] [address] [id number] [place] [address] Jan, [facility] [place] [facility] [address] [id number] [place] [address] Jan, [facility] [place] [facility] [address] [id number] [place] [address] 17 Dec, 2012 [facility] [place] [facility] [address] [id number] [place] [address] 12 Dec, 2012 [facility] [place] [facility] [address] [id number] [place] [address] 05 Dec, 2012 [facility] [place] [facility] [address] [id number] [place] [address] 05 Dec, 2012 [facility] [place] [facility] [address] [id number] [place] [address] Oct, [facility] [place] [facility] [address] [id number] [place] [address] Oct, [facility] [place] [facility] [address] [id number] [place] [address] Oct, [facility] [place] [facility] [address] [id number] [place] [address] Oct, 2012 [facility] [place] [facility] [address] [id number] [place] [address] Oct, [facility] [address] [id number] [place] [address] Sep, [facility] [address] [id number] [place] [address] August, [facility] [address] [id number] [place] [address] August, [facility] [address] [id number] [place] [address] August, [facility] [address] [id number] [place] [address] August, [facility] [address] [id number] [place] [address] August, [facility] [address] [id number] [place] [address] August, [facility] [address] [id number] [place] [address] August, [facility] [address] [id number] [place] [address] August, [facility] [address] [id number] [place] [address] August, [facility] [address] [id number] [place] [address] August, [facility] [place] [facility] [address] [id number] [place] [address] August, [facility] [place] [facility] [address] [id number] [place] [address] August, [facility] [place] [facility] [address] [id number] [place] [address] Jun, [facility] [place] [facility] [address] [id number] [place] [address] Jun, [facility] [address] [id number] [place] [address] Jun, [facility] [address] [id number] [place] [address] May, [facility] [address] [id number] [place] [address] May, [facility] [address] [id number] [place] [address] Mar, [facility] [address] [id number] [place] [address] Mar, [facility] [address] [id number] [place] [address] Feb, [facility] [address] [id number] [place] [address] Feb, [facility] [address] [id number] [place] [address] Feb, [facility] [address] [id number] [place] [address] Feb, [facility] [address] [id number] [place] [address] Dec, [facility] [address] [id number] [place] [address] August, [facility] [address] [id number] [place] [address] Jul, [facility] [address] [id number] [place] [address] 05 Jul, 2011 [facility] [address] [id number] [place] [address] 13 Jun, 2011 [facility] [address] [id number] [place] [address] 13 Jun, 2011 [facility] [address] [id number] [place] [address] Jun, [facility] [address] [id number] [place] [address] Jun, [facility] [place] [facility] [address] [id number] [place] [address] Jun, [facility] [address] [id number] [place] [address] May, [facility] [place] [facility] [address] [id number] [place] [address] May, [facility] [address] [id number] [place] [address] May, [facility] [address] [id number] [place] [address] May, [facility] [address] [facility] [id number] [place] [address] Apr, [facility] [place] [facility] [address] [id number] [place] [address] Apr, [facility] [address] [facility] [id number] [place] [address] Apr, [facility] [address] [facility] [id number] [place] [address] Mar, [facility] [place] [facility] [address] [facility] [id number] [address] Mar, [facility] [place] [facility] [address] [id number], [place] [address] Mar, [facility] [place] [facility] [address] [id number] [place] [address] Mar, [facility] [place] [facility] [address] [id number] [address] May, [facility] [place] [facility] [address] [id number] [place] [address] Feb, [facility] [place] [facility] [address] [facility] [id number] [place] [address] Feb, [facility] [address] [facility] [id number] [place] [address] Jan, [facility] [address] [facility] [id number] [place] [address] Jan, IMMUNIZATIONS No Known Immunizations SOCIAL HISTORY Never Assessed REASON FOR VISIT Controlled Med Refill 05/06/17 PLAN OF CARE VITAL SIGNS MEDICATIONS Medication Instructions Dosage Frequency Start Date End Date Duration Status Oxycodone HCl 10 MG Orally Once a day 1 tablet 24h Apr, 28 days Active Xanax 1 MG Orally [...]
--- OUTSIDE RECORDS SUMMARY | 2018-09-19 01:44 | XMS REPORT ---
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 Active 069487494 Problem 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 Active 744567732 Problem Other chronic pain G89.29 Active 21378939 Problem Osteoarthritis, unspecified osteoarthritis type, unspecified site M19.90 Active 462979763 ALLERGIES No Information ENCOUNTERS Encounter Location Date Diagnosis [place] [id number] [place] [address] Jul, Osteoarthritis, unspecified osteoarthritis type, unspecified site M19.90 [facility] [id number] [place] [address] Jun, Osteoarthritis, unspecified osteoarthritis type, unspecified site M19.90 [facility] [id number] [place] [address] Jun, [facility] [id number] [place] [address] Jun, Osteoarthritis, unspecified osteoarthritis type, unspecified site M19.90 [facility] [id number] [place] [address] May, [facility] [id number] [place] [address] May, Benign prostatic hyperplasia, unspecified whether lower urinary tract symptoms present N40.0 [place] [id number] [place] [address] May, Osteoarthritis, unspecified osteoarthritis type, unspecified site M19.90 [place] [id number] [place] [address] May, [place] [id number] [place] [address] Apr, Other chronic pain G89.29 ; Family history of diabetes mellitus Z83.3 ; Forgetfulness R68.89 ; History of multiple concussions Z87.820 ; Gastroesophageal reflux disease without esophagitis K21.9 and Screening, lipid Z13.220 [place] [id number] [place] [address] Apr, Other chronic pain G89.29 ; Forgetfulness R68.89 ; History of multiple concussions Z87.820 ; Gastroesophageal reflux disease without esophagitis K21.9 ; Screening, lipid Z13.220 and Family history of diabetes mellitus Z83.3 [place] [id number] [place] [address] Apr, Osteoarthritis, unspecified osteoarthritis type, unspecified site M19.90 [place] [address] [address] Apr, Osteoarthritis, unspecified osteoarthritis type, unspecified site M19.90 [place] [id number] [place] [address] Apr, [place] [id number] [place] [address] Mar, Osteoarthritis, unspecified osteoarthritis type, unspecified site M19.90 [place] [id number] [place] [address] Feb, Osteoarthritis, unspecified osteoarthritis type, unspecified site M19.90 [place] [id number] [address] Jan, Osteoarthritis, unspecified osteoarthritis type, unspecified site M19.90 [facility] [id number] [address] Dec, Osteoarthritis, unspecified osteoarthritis type, unspecified site M19.90 [place] [id number] [place] [address] Dec, [place] [id number] [place] [address] Nov, Encounter for screening for lipid disorder Z13.220 [place] [id number] [place] [address] Nov, Osteoarthritis, unspecified osteoarthritis type, unspecified site M19.90 ; Encounter for screening for lipid disorder Z13.220 and Other chronic pain G89.29 [place] [id number] [place] [address] Nov, Osteoarthritis, unspecified osteoarthritis type, unspecified site M19.90 [place] [id number] [place] [address] Nov, [place] [id number] [place] [address] Nov, [place] [address] [address] Oct, Osteoarthritis, unspecified osteoarthritis type, unspecified site M19.90 [place] [address] [address] Oct, Gastroesophageal reflux disease without esophagitis K21.9 [facility] [id number] [place] [address] Sep, Osteoarthritis, unspecified osteoarthritis type, unspecified site M19.90 [place] [address] [address] August, Osteoarthritis, unspecified osteoarthritis type, unspecified site M19.90 [facility] [id number] [place] [address] August, Osteoarthritis, unspecified osteoarthritis type, unspecified site M19.90 [facility] [id number] [place] [address] Jul, Osteoarthritis, unspecified osteoarthritis type, unspecified site M19.90 and Gastroesophageal reflux disease without esophagitis K21.9 [place] [id number] [place] [address] Jul, Osteoarthritis, unspecified osteoarthritis type, unspecified site M19.90 [place] [id number] [place] [address] Jun, Ventral hernia without obstruction or gangrene K43.9 [place] [id number] [place] [address] Jun, Osteoarthritis, unspecified osteoarthritis type, unspecified site M19.90 [place] [id number] [place] [address] May, [place] [id number] [place] [address] May, Osteoarthritis, unspecified osteoarthritis type, unspecified site M19.90 [place] [id number] [place] [address] Apr, Osteoarthritis, unspecified osteoarthritis type, unspecified site M19.90 [place] [address] [place] [address] Mar, [place] [id number] [place] [address] Mar, Osteoarthritis, unspecified osteoarthritis type, unspecified site M19.90 and Lumbago with sciatica, left side M54.42 [place] [id number] [place] [address] Feb, [facility] [id number] [place] [address] Feb, [facility] [id number] [place] [address] Feb, Osteoarthritis, unspecified osteoarthritis type, unspecified site M19.90 [facility] [id number] [place] [address] Feb, [facility] [id number] [place] [address] Feb, Low back pain M54.5 and Other chronic pain G89.29 [place] [address] [address] Feb, [place] [id number] [place] [address] Jan, [place] [id number] [place] [address] 05 Jan, 2016 [facility] [id number] [place] [address] 24 Dec, 2015 Lumbago with sciatica, left side M54.42 [place] [id number] [place] [address] 15 Dec, 2015 Irritable bowel syndrome with both constipation and diarrhea K58.0 ; Screening, lipid Z13.220 ; Nocturia R35.1 ; Family history of diabetes mellitus Z83.3 and Dysuria R30.0 [place] [id number] [place] [address] 14 Dec, 2015 Irritable bowel syndrome with both constipation and diarrhea K58.0 ; Nocturia R35.1 ; Family history of diabetes mellitus Z83.3 ; Dysuria R30.0 and Screening, lipid Z13.220 [facility] [id number] [place] [address] 12 Dec, 2015 [place] [address] [place] [address] 07 Dec, 2015 [facility] [id number] [place] [address] Dec, Pain with swallowing R13.10 [facility] [id number] [address] Nov, [facility] [id number] [place] [address] Nov, [facility] [id number] [place] [address] Oct, [facility] [id number] [place] [address] Sep, [facility] [id number] [place] [address] Sep, Osteoarthritis, unspecified osteoarthritis type, unspecified site M19.90 [facility] [id number] [place] [address] Sep, Back pain M54.9 [facility] [id number] [place] [address] Sep, Lumbago with sciatica, right side M54.41 and Bilateral impacted cerumen H61.23 [facility] [address] [address] Sep, [facility] [id number] [place] [address] August, Bronchitis J40 [facility] [id number] [place] [address] August, [facility] [id number] [place] [address] August, [facility] [address] [address] August, [facility] [id number] [address] Jul, [facility] [address] [place] [address] Jul, Back pain M54.9 [facility] [address] [address] Jun, Degenerative disc disease at L5-S1 level M51.36 and Bronchitis J40 [facility] [id number] [place] [address] Jun, [facility] [id number] [place] [address] May, [facility] [id number] [place] [address] Apr, [facility] [id number] [place] [address] Mar, [facility] [id number] [place] [address] Mar, [facility] [id number] [place] [address] Feb, [facility] [id number] [place] [address] Jan, [facility] [id number] [place] [address] Dec, [facility] [id number] [place] [address] Nov, [facility] [id number] [place] [address] Oct, [facility] [id number] [place] [address] Oct, Right shoulder pain 719.41 [facility] [address] [place] [address] Sep, [facility] [address] [facility] [id number] [address] Sep, Vertigo 780.4 and Elbow fracture, right 812.40 [facility] [address] [address] Sep, [facility] [address] [place] [address] August, [facility] [address] [facility] [id number] [address] Jul, [facility] [address] [place] [address] Jul, [facility] [address] [place] [address] Jun, [facility] [address] [address] Jun, [facility] [address] [place] [address] Jun, [facility] [address] [place] [address] Jun, [facility] [address] [address] Jun, [facility] [address] [address] Jun, [facility] [address] [address] May, [facility] [address] [address] May, [facility] [address] [address] May, [facility] [address] [address] May, [facility] [place] [facility] [address] [id number] [place] [address] May, [facility] [place] [facility] [address] [id number] [place] [address] May, [facility] [place] [facility] [address] [id number] [place] [address] Apr, [facility] [place] [facility] [address] [id number] [place] [address] Apr, [facility] [place] [facility] [address] [id number] [place] [address] Apr, [facility] [place] [facility] [address] [id number] [place] [address] Apr, [facility] [place] [facility] [address] [id number] [place] [address] Apr, [facility] [place] [facility] [address] [id number] [place] [address] Apr, [facility] [place] [facility] [address] [id number] [place] [address] Apr, [facility] [place] [facility] [address] [id number] [place] [address] Mar, [facility] [place] [facility] [address] [id number] [place] [address] Mar, [facility] [place] [facility] [address] [id number] [place] [address] Mar, [facility] [place] [facility] [address] [id number] [place] [address] Mar, [facility] [place] [facility] [address] [id number] [place] [address] Mar, [facility] [place] [facility] [address] [id number] [place] [address] Mar, [facility] [place] [facility] [address] [id number] [place] [address] Mar, [facility] [place] [facility] [address] [id number] [place] [address] Mar, [facility] [place] [facility] [address] [id number] [place] [address] Mar, [facility] [place] [facility] [address] [id number] [place] [address] Mar, [facility] [place] [facility] [address] [id number] [place] [address] Mar, [facility] [place] [facility] [address] [id number] [place] [address] Mar, [facility] [place] [facility] [address] [id number] [place] [address] Mar, [facility] [place] [facility] [address] [id number] [place] [address] Mar, [facility] [place] [facility] [address] [id number] [place] [address] Mar, [facility] [place] [facility] [address] [id number] [place] [address] Feb, [facility] [place] [facility] [address] [id number] [place] [address] Feb, [facility] [place] [facility] [address] [id number] [place] [address] Feb, [facility] [place] [facility] [address] [id number] [place] [address] Feb, [facility] [place] [facility] [address] [id number] [place] [address] Feb, [facility] [place] [facility] [address] [id number] [place] [address] Feb, [facility] [place] [facility] [address] [id number] [place] [address] Jan, [facility] [place] [facility] [address] [id number] [place] [address] 28 Jan, 2013 [facility] [place] [facility] [address] [id number] [place] [address] 08 Jan, 2013 [facility] [place] [facility] [address] [id number] [place] [address] 08 Jan, 2013 [facility] [place] [facility] [address] [id number] [place] [address] Jan, 2013 [facility] [place] [facility] [address] [id number] [place] [address] Jan, 2013 [facility] [place] [facility] [address] [id number] [place] [address] 29 Sep, 2013 [facility] [place] [facility] [address] [id number] [place] [address] 29 Sep, 2013 [facility] [place] [facility] [address] [id number] [place] [address] 26 Sep, 2013 [facility] [place] [facility] [address] [id number] [place] [address] 11 Sep, 2013 [facility] [place] [facility] [address] [id number] [place] [address] 11 Dec, 2013 [facility] [place] [facility] [address] [id number] [place] [address] 08 Sep, 2013 [facility] [place] [facility] [address] [id number] [place] [address] 08 Sep, 2013 [facility] [place] [facility] [address] [id number] [place] [address] 08 Sep, 2013 [facility] [place] [facility] [address] [id number] [place] [address] 08 Sep, 2013 [facility] [place] [facility] [address] [id number] [place] [address] 04 Sep, 2013 [facility] [place] [facility] [address] [id number] [place] [address] Dec, [facility] [place] [facility] [address] [id number] [place] [address] Nov, [facility] [place] [facility] [address] [id number] [place] [address] Nov, [facility] [place] [facility] [address] [id number] [place] [address] Nov, [facility] [place] [facility] [address] [id number] [place] [address] Nov, [facility] [place] [facility] [address] [id number] [place] [address] Nov, [facility] [place] [facility] [address] [id number] [place] [address] Nov, [facility] [place] [facility] [address] [id number] [place] [address] Nov, [facility] [place] [facility] [address] [id number] [place] [address] Nov, [facility] [place] [facility] [address] [id number] [place] [address] Nov, [facility] [place] [facility] [address] [id number] [place] [address] Nov, [facility] [place] [facility] [address] [id number] [place] [address] Oct, [facility] [place] [facility] [address] [id number] [place] [address] Oct, [facility] [place] [facility] [address] [id number] [place] [address] Oct, [facility] [place] [facility] [address] [id number] [place] [address] Oct, [facility] [place] [facility] [address] [id number] [place] [address] Oct, [facility] [place] [facility] [address] [id number] [place] [address] Oct, [facility] [place] [facility] [address] [id number] [place] [address] Oct, [facility] [place] [facility] [address] [id number] [place] [address] Oct, [facility] [place] [facility] [address] [id number] [place] [address] Oct, [facility] [place] [facility] [address] [id number] [place] [address] Oct, [facility] [place] [facility] [address] [id number] [place] [address] Oct, [facility] [place] [facility] [address] [id number] [place] [address] Oct, [facility] [place] [facility] [address] [id number] [place] [address] Oct, [facility] [place] [facility] [address] [id number] [place] [address] Sep, [facility] [place] [facility] [address] [id number] [place] [address] Sep, [facility] [place] [facility] [address] [id number] [place] [address] Sep, [facility] [place] [facility] [address] [id number] [place] [address] Sep, [facility] [place] [facility] [address] [id number] [place] [address] August, [facility] [place] [facility] [address] [id number] [place] [address] August, [facility] [place] [facility] [address] [id number] [place] [address] August, [facility] [place] [facility] [address] [id number] [place] [address] August, [facility] [place] [facility] [address] [id number] [place] [address] August, [facility] [place] [facility] [address] [id number] [place] [address] August, [facility] [place] [facility] [address] [id number] [place] [address] August, [facility] [place] [facility] [address] [id number] [place] [address] August, [facility] [place] [facility] [address] [id number] [place] [address] Jul, [facility] [place] [facility] [address] [id number] [place] [address] Jul, [facility] [place] [facility] [address] [id number] [place] [address] Jun, [facility] [place] [facility] [address] [id number] [place] [address] Jun, [facility] [place] [facility] [address] [id number] [place] [address] Jun, [facility] [place] [facility] [address] [id number] [place] [address] Jun, [facility] [place] [facility] [address] [id number] [place] [address] Jun, [facility] [place] [facility] [address] [id number] [place] [address] Jun, [facility] [place] [facility] [address] [id number] [place] [address] May, [facility] [place] [facility] [address] [id number] [place] [address] May, [facility] [place] [facility] [address] [id number] [place] [address] May, [facility] [place] [facility] [address] [id number] [place] [address] 14 May, 2013 [facility] [place] [facility] [address] [id number] [place] [address] 07 May, 2013 [facility] [place] [facility] [address] [id number] [address] 07 May, 2013 [facility] [place] [facility] [address] [facility] [id number] [place] [address] Apr, [facility] [place] [facility] [address] [id number] [place] [address] Apr, [facility] [place] [facility] [address] [id number] [place] [address] 15 Feb, 2013 [facility] [place] [facility] [address] [id number] [place] [address] 15 Feb, 2013 [facility] [place] [facility] [address] [facility] [id number] [address] 15 Feb, 2013 [facility] [place] [facility] [address] [facility] [id number] [place] [address] 15 Feb, 2013 [facility] [place] [facility] [address] [facility] [id number] [address] Feb, [facility] [place] [facility] [address] [facility] [id number] [place] [address] Feb, [facility] [place] [facility] [address] [facility] [id number] [place] [address] Feb, [facility] [place] [facility] [address] [id number] [place] [address] Feb, [facility] [place] [facility] [address] [id number] [place] [address] 08 Feb, 2013 [facility] [place] [facility] [address] [facility] [id number] [place] [address] 27 Jan, 2013 [facility] [place] [facility] [address] [facility] [id number] [address] Jan, [facility] [place] [facility] [address] [id number] [place] [address] Jan, [facility] [place] [facility] [address] [id number] [place] [address] Jan, [facility] [place] [facility] [address] [id number] [place] [address] Jan, [facility] [place] [facility] [address] [id number] [place] [address] Jan, [facility] [place] [facility] [address] [id number] [place] [address] 17 Dec, 2012 [facility] [place] [facility] [address] [id number] [place] [address] 12 Dec, 2012 [facility] [place] [facility] [address] [id number] [place] [address] 05 Dec, 2012 [facility] [place] [facility] [address] [id number] [place] [address] Dec, [facility] [place] [facility] [address] [id number] [place] [address] Oct, [facility] [place] [facility] [address] [id number] [place] [address] Oct, [facility] [place] [facility] [address] [id number] [place] [address] Oct, [facility] [place] [facility] [address] [id number] [place] [address] Oct, [facility] [place] [facility] [address] [id number] [place] [address] Oct, [facility] [place] [facility] [address] [id number] [place] [address] Sep, [facility] [place] [facility] [address] [id number] [place] [address] August, [facility] [place] [facility] [address] [id number] [place] [address] August, [facility] [address] [id number] [place] [address] August, [facility] [address] [id number] [place] [address] August, [facility] [place] [address] [id number] [place] [address] August, [facility] [address] [id number] [place] [address] August, [facility] [address] [id number] [place] [address] August, [facility] [address] [id number] [place] [address] August, [facility] [address] [id number] [place] [address] August, [facility] [address] [id number] [place] [address] August, [facility] [address] [id number] [place] [address] August, [facility] [address] [id number] [place] [address] August, [facility] [address] [id number] [place] [address] Jun, [facility] [place] [facility] [address] [id number] [place] [address] Jun, [facility] [place] [facility] [address] [id number] [place] [address] Jun, [facility] [place] [facility] [address] [id number] [place] [address] May, [facility] [place] [facility] [address] [id number] [place] [address] May, [facility] [place] [facility] [address] [id number] [place] [address] Mar, [facility] [address] [id number] [place] [address] Mar, [facility] [place] [facility] [address] [id number] [place] [address] Feb, [facility] [address] [id number] [place] [address] Feb, [facility] [place] [facility] [address] [id number] [place] [address] Feb, [facility] [address] [id number] [place] [address] Feb, [facility] [place] [facility] [address] [id number] [place] [address] Dec, [facility] [address] [id number] [place] [address] August, [facility] [address] [id number] [place] [address] Jul, [facility] [place] [facility] [address] [id number] [place] [address] Jul, [facility] [address] [facility] [id number] [place] [address] Jun, [facility] [place] [facility] [address] [id number] [place] [address] Jun, [facility] [place] [facility] [address] [id number] [place] [address] Jun, [facility] [place] [facility] [address] [id number] [place] [address] Jun, [facility] [place] [facility] [address] [id number] [place] [address] Jun, [facility] [place] [facility] [address] [id number] [place] [address] May, [facility] [address] [facility] [id number] [address] May, [facility] [address] [facility] [id number] [place] [address] May, [facility] [address] [facility] [id number] [place] [address] May, [facility] [address] [facility] [id number] [place] [address] Apr, [facility] [address] [facility] [id number] [place] [address] Apr, [facility] [address] [facility] [id number] [place] [address] Apr, [facility] [address] [facility] [id number] [place] [address] Mar, [facility] [address] [id number] [address] Mar, [facility] [address] [facility] [id number] [place] [address] Mar, [facility] [address] [id number] [address] Mar, [facility] [address] [facility] [id number] [place] [address] May, [facility] [address] [facility] [id number] [place] [address] Feb, [facility] [address] [facility] [id number] [place] [address] Feb, [facility] [address] [facility] [id number] [place] [address] Jan, [facility] [address] [facility] [id number] [address] Jan, IMMUNIZATIONS No Known Immunizations SOCIAL HISTORY Never Assessed REASON FOR VISIT Controlled Med Refill 01/14/2017 PLAN OF CARE VITAL SIGNS MEDICATIONS Medication Instructions Dosage Frequency Start Date End Date Duration Status Oxycodone HCl 10 MG Orally Once a day 1 tablet 24h Dec, 28 days Active Xanax 1 MG Orally [...]
--- OUTSIDE RECORDS SUMMARY | 2018-09-19 01:45 | XMS REPORT ---
Author Author SAMMY ARZATE [facility] Address [address] [place] [address] Care Team Providers Care Special Delivery Mail Carrier Name Role Phone SAMMY ARZATE Unavailable PROBLEMS Type Condition ICD9-CM Code [id number] Code Onset Dates Condition Status SNOMED Code Problem Other chronic nonalcoholic liver disease 571.8 Active 22285758 Problem Major depressive disorder, recurrent episode, moderate 296.32 Active 09814505 Problem Family history of other malignant neoplasm V16.49 Active 094888528 Problem Diaphragmatic hernia without mention of obstruction or gangrene 553.3 Active 24893457 Problem Cervicalgia 723.1 Active 90857548 Problem Umbilical hernia without mention of obstruction or gangrene 553.1 Active 667691085 Problem Family history of diabetes mellitus V18.0 Active 786207203 Problem Other abnormal glucose 790.29 Active 904270803 Problem Abdominal pain, generalized 789.07 Active 896339721 Problem Abdominal pain, right lower quadrant 789.03 Active 108860461 Problem Unspecified otalgia 388.70 Active 03254755 Problem Unspecified neuralgia, neuritis, and radiculitis 729.2 Active 39667163 Problem 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 48981590 Problem Other postprocedural status V45.89 Active 92939263 Problem Chest pain, unspecified 786.50 Active 33922783 Problem Anxiety state, unspecified 300.00 Active 068570776 Problem Osteoarthritis, unspecified osteoarthritis type, unspecified site M19.90 Active 717573054 Problem 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 Active 885002620 Problem Panic disorder without agoraphobia 300.01 Active 94267420 Problem Major depressive disorder, recurrent episode, severe, without mention of psychotic behavior 296.33 Active 21249362 Problem Umbilical hernia with obstruction 552.1 Active 568169961 Problem Depressive disorder, not elsewhere classified 311 Active 12239179 Problem Esophageal reflux 530.81 Active 770967690 Problem 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 Active 079730598 Problem Other abnormal blood chemistry 790.6 Active 790529754 Problem Family history of malignant neoplasm of gastrointestinal tract V16.0 Active 737562438 Problem Abnormal involuntary movements 781.0 Active 453356955 Problem Essential hypertension, benign 401.1 Active 0953174 Problem Abdominal pain, epigastric 789.06 Active 12299026 Problem Other malaise and fatigue 780.79 Active 389877513 Problem Lumbago 724.2 Active 602251475 Problem Family history of other cardiovascular diseases V17.49 Active 354594248 Problem Memory loss 780.93 Active 93973936 ALLERGIES Unknown Allergies SOCIAL HISTORY No smoking Hx information available PLAN OF CARE VITAL SIGNS MEDICATIONS Medication Instructions Dosage Frequency Start Date End Date Duration Status Xanax 1 MG Orally Twice a day 1 tablet 12h 25 Jun, 2014 28 days Active RESULTS No Results PROCEDURES No Known procedures IMMUNIZATIONS No Known Immunizations
--- OUTSIDE RECORDS SUMMARY | 2018-09-19 01:45 | XMS REPORT ---
Author Author SAMMY ARZATE [facility] e[employer] Address Unknown Phone Unavailable Care Team Providers Care Loan Operations Manager Name Role Phone SAMMY ARZATE CP Unavailable [...] Start Date End Date Status Dosage Xanax [facility] [address]-23 1 MG Orally Twice a day July 20, 2014 1 tablet Results No Known Results Summary Purpose eClinicalWorks Submission
--- OUTSIDE RECORDS SUMMARY | 2018-09-19 01:45 | XMS REPORT ---
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 Active 524078630 Problem 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 Active 268919713 Problem Other chronic pain G89.29 Active 10666904 Problem Osteoarthritis, unspecified osteoarthritis type, unspecified site M19.90 Active 868633831 ALLERGIES No Information ENCOUNTERS Encounter Location Date Diagnosis [place] [address] [address] Sep, [place] [address] [address] Sep, Osteoarthritis, unspecified osteoarthritis type, unspecified site M19.90 [place] [address] [place] [id number] [place] [address] August, Other chronic pain G89.29 and Other specified personal risk factors, not elsewhere classified Z91.89 [place] [address] [address] August, Osteoarthritis, unspecified osteoarthritis type, unspecified site M19.90 [place] [address] [address] Jul, Osteoarthritis, unspecified osteoarthritis type, unspecified site M19.90 [place] [address], [place] [address] Jun, Osteoarthritis, unspecified osteoarthritis type, unspecified site M19.90 [place] [address] [place] [id number] [address] Jun, [place] [address] [place] [id number] [place] [address] Jun, Osteoarthritis, unspecified osteoarthritis type, unspecified site M19.90 [place] [address] [place] [id number] [place] [address] May, [place] [address] [place] [id number] [place] [address] May, Benign prostatic hyperplasia, unspecified whether lower urinary tract symptoms present N40.0 [place] [address] [place] [id number] [place] [address] May, Osteoarthritis, unspecified osteoarthritis type, unspecified site M19.90 [place] [address], [place] [address] May, [place] [address] [place] [id number] [place] [address] Apr, Other chronic pain G89.29 ; Family history of diabetes mellitus Z83.3 ; Forgetfulness R68.89 ; History of multiple concussions Z87.820 ; Gastroesophageal reflux disease without esophagitis K21.9 and Screening, lipid Z13.220 [place] [address], [place] [address] Apr, Other chronic pain G89.29 ; Forgetfulness R68.89 ; History of multiple concussions Z87.820 ; Gastroesophageal reflux disease without esophagitis K21.9 ; Screening, lipid Z13.220 and Family history of diabetes mellitus Z83.3 [place] [address], [place] [address] Apr, Osteoarthritis, unspecified osteoarthritis type, unspecified site M19.90 [place] [address], [place] [address] Apr, Osteoarthritis, unspecified osteoarthritis type, unspecified site M19.90 [facility] [address], [place] [address] Apr, [facility] [address], [place] [address] Mar, Osteoarthritis, unspecified osteoarthritis type, unspecified site M19.90 [facility] [address], [place] [address] Feb, Osteoarthritis, unspecified osteoarthritis type, unspecified site M19.90 [facility] [address], [place] [address] Jan, Osteoarthritis, unspecified osteoarthritis type, unspecified site M19.90 [place] [address], [place] [address] Dec, Osteoarthritis, unspecified osteoarthritis type, unspecified site M19.90 [facility] [address], [place] [address] Dec, [facility] [address], [place] [address] Nov, Encounter for screening for lipid disorder Z13.220 [facility] [address], [place] [address] Nov, Osteoarthritis, unspecified osteoarthritis type, unspecified site M19.90 ; Encounter for screening for lipid disorder Z13.220 and Other chronic pain G89.29 [facility] [address], [place] [address] Nov, Osteoarthritis, unspecified osteoarthritis type, unspecified site M19.90 [facility] [address], [place] [address] Nov, [facility] [address], [place] [address] Nov, [facility] [address], [place] [address] Oct, Osteoarthritis, unspecified osteoarthritis type, unspecified site M19.90 [facility] [address] [place] [id number] [place] [address] Oct, Gastroesophageal reflux disease without esophagitis K21.9 [facility] [address] [place] [id number] [place] [address] Sep, Osteoarthritis, unspecified osteoarthritis type, unspecified site M19.90 [place] [address] [place] [id number] [place] [address] August, Osteoarthritis, unspecified osteoarthritis type, unspecified site M19.90 [place] [address] [place] [id number] [place] [address] August, Osteoarthritis, unspecified osteoarthritis type, unspecified site M19.90 [place] [address] [place] [id number] [place] [address] Jul, Osteoarthritis, unspecified osteoarthritis type, unspecified site M19.90 and Gastroesophageal reflux disease without esophagitis K21.9 [place] [address] [place] [id number] [place] [address] Jul, Osteoarthritis, unspecified osteoarthritis type, unspecified site M19.90 [place] [address] [place] [id number] [place] [address] Jun, Ventral hernia without obstruction or gangrene K43.9 [facility] [address] [place] [address], [place] [address] Jun, Osteoarthritis, unspecified osteoarthritis type, unspecified site M19.90 [facility] [address] [place] [address] May, [facility] [address] [place] [address] [address] May, Osteoarthritis, unspecified osteoarthritis type, unspecified site M19.90 [facility] [address], [place] [address] Apr, Osteoarthritis, unspecified osteoarthritis type, unspecified site M19.90 [facility] [address] [place] [address] Mar, [facility] [address] [place] [id number] [place] [address] Mar, Osteoarthritis, unspecified osteoarthritis type, unspecified site M19.90 and Lumbago with sciatica, left side M54.42 [facility] [address] [place] [address] [place] [address] Feb, [facility] [address] [place] [id number] [place] [address] Feb, [facility] [address] [place] [address] [id number] [place] [address] Feb, Osteoarthritis, unspecified osteoarthritis type, unspecified site M19.90 [facility] [address] [place] [id number] [place] [address] Feb, [facility] [address] [place] [address] [place] [address] Feb, Low back pain M54.5 and Other chronic pain G89.29 [facility] [address] [place] [address] [place] [address] Feb, [facility] [address] [place] [id number] [place] [address] Jan, [facility] [address] [place] [id number] [place] [address] Jan, [facility] [address] [place] [id number] [place] [address] Dec, Lumbago with sciatica, left side M54.42 [facility] [address] [place] [address] [place] [address] 15 Dec, 2015 Irritable bowel syndrome with both constipation and diarrhea K58.0 ; Screening, lipid Z13.220 ; Nocturia R35.1 ; Family history of diabetes mellitus Z83.3 and Dysuria R30.0 [facility] [address] [place] [address] [place] [address] 14 Dec, 2015 Irritable bowel syndrome with both constipation and diarrhea K58.0 ; Nocturia R35.1 ; Family history of diabetes mellitus Z83.3 ; Dysuria R30.0 and Screening, lipid Z13.220 [facility] [address] [place] [address] [place] [address] 12 Dec, 2015 [place] [address] [place] [id number] [place] [address] 07 Dec, 2015 [facility] [address] [place] [id number] [place] [address] Dec, Pain with swallowing R13.10 [place] [address] [place] [address] [place] [address] Nov, [place] [address] [place] [id number] [place] [address] Nov, [place] [address] [place] [address] [place] [address] Oct, [place] [address] [place] [id number] [place] [address] Sep, [facility] [address] [place] [address] [place] [address] Sep, Osteoarthritis, unspecified osteoarthritis type, unspecified site M19.90 [place] [address] [place] [address] [place] [address] Sep, Back pain M54.9 [place] [address] [place] [address] [place] [address] 07 Sep, 2015 Lumbago with sciatica, right side M54.41 and Bilateral impacted cerumen H61.23 [facility] [address], [place] [address] Sep, [facility] [address] [place] [address] [place] [address] August, Bronchitis J40 [facility] [address] [place] [id number] [place] [address] August, [facility] [address] [place] [id number] [place] [address] August, [facility] [address] [place] [address] [id number] [place] [address] August, [facility] [address] [place] [id number] [place] [address] Jul, [facility] [address] [place] [id number] [place] [address] Jul, Back pain M54.9 [facility] [address] [place] [address] [place] [address] Jun, Degenerative disc disease at L5-S1 level M51.36 and Bronchitis J40 [facility] [address] [place] [id number] [place] [address] Jun, [facility] [address] [place] [address] May, [facility] [address] [place] [address] Apr, [facility] [address] [place] [address] Mar, [facility] [address] [place] [id number] [place] [address] Mar, [facility] [address] [place] [address] Feb, [facility] [address] [place] [id number] [place] [address] Jan, [facility] [address] [place] [id number], [place] [address] Dec, [facility] [address] [place] [id number] [place] [address] Nov, [facility] [address] [place] [id number] [place] [address] Oct, [facility] [address] [place] [id number] [place] [address] Oct, Right shoulder pain 719.41 [facility] [address] [place] [id number] [place] [address] Sep, [facility] [address] [place] [id number] [place] [address] Sep, Vertigo 780.4 and Elbow fracture, right 812.40 [facility] [address] [place] [id number] [place] [address] Sep, [facility] [address] [place] [id number] [place] [address] August, [facility] [address] [place] [id number] [place] [address] Jul, [facility] [address], [place] [address] Jul, [facility] [address] [place] [address] Jun, [facility] [address] [place] [address] [id number], [place] [address] Jun, [facility] [address] [place] [id number] [place] [address] Jun, [facility] [address], [place] [address] Jun, [facility] [address] [place] [id number] [place] [address] Jun, [facility] [place] [facility] [address] [id number] [place] [address] Jun, [facility] [place] [facility] [address] [id number] [place] [address] May, [facility] [place] [facility] [address] [id number] [place] [address] May, [facility] [place] [facility] [address] [id number] [place] [address] May, [facility] [place] [facility] [address] [id number] [place] [address] May, [facility] [place] [facility] [address] [facility] [id number] [place] [address] May, [facility] [place] [facility] [address] [facility] [id number] [place] [address] May, [facility] [place] [facility] [address] [facility] [id number] [place] [address] Apr, [facility] [place] [facility] [address] [facility] [id number] [place] [address] Apr, [facility] [place] [facility] [address] [facility] [id number] [place] [address] Apr, [facility] [place] [facility] [address] [facility] [id number] [place] [address] Apr, [facility] [place] [facility] [address] [facility] [id number] [place] [address] Apr, [facility] [place] [facility] [address] [id number] [place] [address] Apr, [facility] [place] [facility] [address] [facility] [id number] [place] [address] Apr, [facility] [place] [facility] [address] [facility] [id number] [place] [address] Mar, [facility] [place] [facility] [address] [id number] [place] [address] Mar, [facility] [place] [facility] [address] [id number] [place] [address] Mar, [facility] [place] [facility] [address] [id number] [place] [address] Mar, [facility] [place] [facility] [address] [id number] [place] [address] Mar, [facility] [place] [facility] [address] [id number] [place] [address] Mar, [facility] [place] [facility] [address] [id number] [place] [address] Mar, [facility] [place] [facility] [address] [id number] [place] [address] Mar, [facility] [place] [facility] [address] [id number] [place] [address] Mar, [facility] [place] [facility] [address] [id number] [place] [address] Mar, [facility] [place] [facility] [address] [id number] [place] [address] Mar, [facility] [place] [facility] [address] [id number] [place] [address] Mar, [facility] [place] [facility] [address] [id number] [place] [address] Mar, [facility] [place] [facility] [address] [id number] [place] [address] Mar, [facility] [place] [facility] [address] [id number] [place] [address] Mar, [facility] [place] [facility] [address] [id number] [place] [address] Feb, [facility] [place] [facility] [address] [id number] [place] [address] Feb, [facility] [place] [facility] [address] [id number] [place] [address] Feb, [facility] [place] [facility] [address] [id number] [place] [address] Feb, [facility] [place] [facility] [address] [facility] [id number] [place] [address] Feb, [facility] [place] [facility] [address] [id number] [place] [address] Feb, [facility] [place] [facility] [address] [id number] [place] [address] Jan, [facility] [place] [facility] [address] [id number] [place] [address] Jan, [facility] [place] [facility] [address] [id number] [place] [address] Jan, [facility] [place] [facility] [address] [id number] [place] [address] Jan, [facility] [place] [facility] [address] [id number] [place] [address] Jan, [facility] [place] [facility] [address] [id number] [place] [address] Jan, [facility] [place] [facility] [address] [id number], [place] [address] 29 Dec, 2013 [facility] [place] [facility] [address] [id number], [place] [address] 29 Dec, 2013 [facility] [place] [facility] [address] [id number] [place] [address] 26 Dec, 2013 [facility] [place] [facility] [address] [id number] [place] [address] 11 Dec, 2013 [facility] [place] [facility] [address] [id number] [place] [address] 11 Dec, 2013 [facility] [place] [facility] [address] [id number] [place] [address] 08 Sep, 2013 [facility] [place] [facility] [address] [id number] [place] [address] 08 Dec, 2013 [facility] [place] [facility] [address] [id number] [place] [address] Dec, 2013 [facility] [place] [facility] [address] [id number] [place] [address] Dec, 2013 [facility] [place] [facility] [address] [id number] [place] [address] Dec, 2013 [facility] [place] [facility] [address] [id number] [place] [address] Dec, 2013 [facility] [place] [facility] [address] [id number] [place] [address] Nov, [facility] [place] [facility] [address] [id number] [place] [address] Nov, [facility] [place] [facility] [address] [id number] [place] [address] Nov, [facility] [place] [facility] [address] [id number] [place] [address] Nov, [facility] [place] [facility] [address] [id number] [place] [address] Nov, [facility] [place] [facility] [address] [id number] [place] [address] Nov, [facility] [place] [facility] [address] [id number] [place] [address] Nov, [facility] [place] [facility] [address] [id number] [place] [address] Nov, [facility] [place] [facility] [address] [id number] [place] [address] Nov, [facility] [place] [facility] [address] [id number] [place] [address] Nov, [facility] [place] [facility] [address] [id number] [place] [address] Oct, [facility] [place] [facility] [address] [id number] [place] [address] Oct, [facility] [place] [facility] [address] [id number] [place] [address] Oct, [facility] [place] [facility] [address] [id number] [place] [address] Oct, [facility] [place] [facility] [address] [id number] [place] [address] Oct, [facility] [place] [facility] [address] [id number] [place] [address] Oct, [facility] [place] [facility] [address] [id number] [place] [address] Oct, [facility] [place] [facility] [address] [id number] [place] [address] Oct, [facility] [place] [facility] [address] [id number] [place] [address] Oct, [facility] [place] [facility] [address] [id number] [place] [address] Oct, [facility] [place] [facility] [address] [id number] [place] [address] Oct, [facility] [place] [facility] [address] [id number] [place] [address] Oct, [facility] [place] [facility] [address] [id number] [place] [address] Oct, [facility] [place] [facility] [address] [id number] [place] [address] Sep, [facility] [place] [facility] [address] [id number] [place] [address] Sep, [facility] [place] [facility] [address] [id number] [place] [address] Sep, [facility] [place] [facility] [address] [id number] [place] [address] Sep, [facility] [place] [facility] [address] [id number] [place] [address] August, [facility] [place] [facility] [address] [id number] [place] [address] August, [facility] [place] [facility] [address] [id number] [place] [address] August, [facility] [place] [facility] [address] [id number] [place] [address] August, [facility] [place] [facility] [address] [id number] [place] [address] August, [facility] [place] [facility] [address] [id number] [place] [address] August, [facility] [place] [facility] [address] [id number] [place] [address] August, [facility] [place] [facility] [address] [id number] [place] [address] August, [facility] [place] [facility] [address] [id number] [place] [address] Jul, [facility] [place] [facility] [address] [id number] [place] [address] Jul, [facility] [place] [facility] [address] [id number] [place] [address] Jun, [facility] [place] [facility] [address] [id number] [place] [address] Jun, [facility] [place] [facility] [address] [id number] [place] [address] Jun, [facility] [place] [facility] [address] [id number] [place] [address] Jun, [facility] [place] [facility] [address] [id number] [place] [address] Jun, [facility] [place] [facility] [address] [id number] [place] [address] Jun, [facility] [place] [facility] [address] [id number] [place] [address] May, [facility] [place] [facility] [address] [id number] [place] [address] May, [facility] [place] [facility] [address] [id number] [place] [address] May, [facility] [place] [facility] [address] [id number] [place] [address] May, [facility] [place] [facility] [address] [id number] [place] [address] May, [facility] [place] [facility] [address] [id number] [place] [address] May, [facility] [place] [facility] [address] [id number] [place] [address] Apr, [facility] [place] [facility] [address] [facility] [id number] [place] [address] Apr, [facility] [place] [facility] [address] [facility] [id number] [place] [address] 15 Feb, 2013 [facility] [place] [facility] [address] [id number] [place] [address] 15 Feb, 2013 [facility] [place] [facility] [address] [id number] [place] [address] 15 Feb, 2013 [facility] [place] [facility] [address] [id number] [place] [address] 15 Feb, 2013 [facility] [place] [facility] [address] [id number] [place] [address] 13 Feb, 2013 [facility] [place] [facility] [address] [id number] [place] [address] Feb, [facility] [place] [facility] [address] [id number] [place] [address] Feb, [facility] [place] [facility] [address] [id number] [place] [address] Feb, [facility] [place] [facility] [address] [id number] [place] [address] Feb, [facility] [place] [facility] [address] [id number] [place] [address] Jan, [facility] [place] [facility] [address] [id number] [place] [address] Jan, [facility] [place] [facility] [address] [id number] [place] [address] Jan, [facility] [place] [facility] [address] [id number] [place] [address] Jan, [facility] [place] [facility] [address] [id number] [place] [address] Jan, [facility] [place] [facility] [address] [id number] [place] [address] Jan, [facility] [place] [facility] [address] [id number] [place] [address] 17 Dec, 2012 [facility] [place] [facility] [address] [id number] [place] [address] 12 Dec, 2012 [facility] [place] [facility] [address] [id number] [place] [address] 05 Dec, 2012 [facility] [place] [facility] [address] [id number] [place] [address] 05 Dec, 2012 [facility] [place] [facility] [address] [id number] [place] [address] Oct, [facility] [place] [facility] [address] [id number] [place] [address] Oct, [facility] [place] [facility] [address] [id number] [place] [address] Oct, [facility] [address] [id number] [place] [address] Oct, [facility] [address] [id number] [place] [address] Oct, [facility] [facility] [address] [id number] [place] [address] Sep, [facility] [address] [id number] [place] [address] August, [facility] [address] [id number] [place] [address] August, [facility] [address] [id number] [place] [address] August, [facility] [address] [id number] [place] [address] August, [facility] [address] [id number] [place] [address] August, [facility] [address] [id number] [place] [address] August, [facility] [address] [id number] [place] [address] August, [facility] [address] [id number] [place] [address] August, [facility] [address] [id number] [place] [address] August, [facility] [address] [id number] [place] [address] August, [facility] [address] [id number] [place] [address] August, [facility] [address] [id number] [place] [address] August, [facility] [address] [id number] [place] [address] Jun, [facility] [place] [facility] [address] [id number] [place] [address] Jun, [facility] [address] [id number] [place] [address] Jun, [facility] [place] [facility] [address] [id number] [place] [address] May, [facility] [address] [id number] [place] [address] May, [facility] [address] [id number] [place] [address] Mar, [facility] [address] [id number] [place] [address] Mar, [facility] [address] [id number] [place] [address] Feb, [facility] [place] [facility] [address] [id number] [place] [address] Feb, [facility] [address] [id number] [place] [address] Feb, [facility] [place] [facility] [address] [id number] [place] [address] Feb, [facility] [place] [facility] [address] [id number], [place] [address] Dec, [facility] [place] [facility] [address] [id number] [place] [address] August, [facility] [place] [facility] [address] [id number] [place] [address] Jul, [facility] [place] [facility] [address] [id number] [place] [address] Jul, [facility] [place] [facility] [address] [id number] [place] [address] 13 Jun, 2011 [facility] [address] [id number] [place] [address] 13 Jun, 2011 [facility] [place] [facility] [address] [id number] [place] [address] 09 Jun, 2011 [facility] [address] [id number] [place] [address] 06 Jun, 2011 [facility] [place] [facility] [address] [id number] [place] [address] 02 Jun, 2011 [facility] [place] [facility] [address] [id number] [place] [address] 21 May, 2011 [facility] [place] [facility] [address] [id number] [place] [address] 19 May, 2011 [facility] [address] [id number] [place] [address] 14 May, 2011 [facility] [address] [id number] [place] [address] 06 May, 2011 [facility] [place] [facility] [address] [id number] [place] [address] Apr, [facility] [address] [facility] [id number] [place] [address] Apr, [facility] [place] [facility] [address] [id number] [place] [address] Apr, [facility] [place] [facility] [address] [id number] [place] [address] Mar, [facility] [place] [facility] [address] [id number] [place] [address] Mar, [facility] [place] [facility] [address] [facility] [id number] [place] [address] Mar, [facility] [place] [facility] [address] [facility] [id number] [place] [address] Mar, [facility] [address] [facility] [id number], [place] [address] May, [facility] [address] [id number], [place] [address] Feb, [facility] [address] [facility] [id number], [place] [address] Feb, [facility] [address] [id number], [place] [address] Jan, [facility] [address] [facility] [id number], [place] [address] Jan, IMMUNIZATIONS No Known Immunizations SOCIAL HISTORY Never Assessed REASON FOR VISIT Lab (walk-in) PLAN OF CARE VITAL SIGNS MEDICATIONS Unknown Medications RESULTS No Results PROCEDURES Procedure Date Ordered Result Body Site LAB NOT BILLED BY [facility] May 27, 2017 VENIPUNCT, ROUTINE* May 27, 2017 INSTRUCTIONS MEDICATIONS ADMINISTERED No Known Medications [...]
--- OUTSIDE RECORDS SUMMARY | 2018-09-19 01:46 | XMS REPORT ---
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 Active 079810031 Problem 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 Active 830075135 Problem Other chronic pain G89.29 Active 82443205 Problem Osteoarthritis, unspecified osteoarthritis type, unspecified site M19.90 Active 511165498 ALLERGIES No Information ENCOUNTERS Encounter Location Date Diagnosis [place] [id number] [place] [address] Jun, Osteoarthritis, unspecified osteoarthritis type, unspecified site M19.90 [place] [address] [address] Jun, [place] [id number] [place] [address] Jun, Osteoarthritis, unspecified osteoarthritis type, unspecified site M19.90 [place] [id number] [place] [address] May, [place] [id number] [place] [address] May, Benign prostatic hyperplasia, unspecified whether lower urinary tract symptoms present N40.0 [place] [address] [place] [id number] [place] [address] May, Osteoarthritis, unspecified osteoarthritis type, unspecified site M19.90 [place] [id number] [place] [address] May, [place] [address] [place] [id number] [place] [address] Apr, Other chronic pain G89.29 ; Family history of diabetes mellitus Z83.3 ; Forgetfulness R68.89 ; History of multiple concussions Z87.820 ; Gastroesophageal reflux disease without esophagitis K21.9 and Screening, lipid Z13.220 [place] [id number] [place] [address] Apr, Other chronic pain G89.29 ; Forgetfulness R68.89 ; History of multiple concussions Z87.820 ; Gastroesophageal reflux disease without esophagitis K21.9 ; Screening, lipid Z13.220 and Family history of diabetes mellitus Z83.3 [place] [address] [place] [id number] [place] [address] Apr, Osteoarthritis, unspecified osteoarthritis type, unspecified site M19.90 [place] [address] [place] [id number] [place] [address] Apr, Osteoarthritis, unspecified osteoarthritis type, unspecified site M19.90 [place] [address] [address] Apr, [place] [address] [place] [id number] [place] [address] Mar, Osteoarthritis, unspecified osteoarthritis type, unspecified site M19.90 [place] [id number] [place] [address] Feb, Osteoarthritis, unspecified osteoarthritis type, unspecified site M19.90 [place] [id number] [place] [address] Jan, Osteoarthritis, unspecified osteoarthritis type, unspecified site M19.90 [place] [address] [place] [id number] [address] Dec, Osteoarthritis, unspecified osteoarthritis type, unspecified site M19.90 [facility] [address] [place] [id number] [place] [address] Dec, [facility] [address] [place] [id number] [place] [address] Nov, Encounter for screening for lipid disorder Z13.220 [place] [address] [place] [id number] [place] [address] Nov, Osteoarthritis, unspecified osteoarthritis type, unspecified site M19.90 ; Encounter for screening for lipid disorder Z13.220 and Other chronic pain G89.29 [place] [address] [place] [id number] [place] [address] Nov, Osteoarthritis, unspecified osteoarthritis type, unspecified site M19.90 [place] [address] [place] [id number] [place] [address] Nov, [place] [address] [place] [id number] [place] [address] Nov, [place] [address] [place] [id number] [place] [address] Oct, Osteoarthritis, unspecified osteoarthritis type, unspecified site M19.90 [place] [id number] [place] [address] Oct, Gastroesophageal reflux disease without esophagitis K21.9 [facility] [id number] [place] [address] Sep, Osteoarthritis, unspecified osteoarthritis type, unspecified site M19.90 [place] [address] [place] [id number] [place] [address] August, Osteoarthritis, unspecified osteoarthritis type, unspecified site M19.90 [place] [address] [address] August, Osteoarthritis, unspecified osteoarthritis type, unspecified site M19.90 [facility] [id number] [address] Jul, Osteoarthritis, unspecified osteoarthritis type, unspecified site M19.90 and Gastroesophageal reflux disease without esophagitis K21.9 [facility] [address] [place] [address] [id number] [place] [address] Jul, Osteoarthritis, unspecified osteoarthritis type, unspecified site M19.90 [facility] [address] [place] [address] [id number] [place] [address] Jun, Ventral hernia without obstruction or gangrene K43.9 [place] [address] [place] [id number] [place] [address] Jun, Osteoarthritis, unspecified osteoarthritis type, unspecified site M19.90 [place] [address] [place] [id number] [place] [address] May, [facility] [address] [place] [id number] [place] [address] May, Osteoarthritis, unspecified osteoarthritis type, unspecified site M19.90 [facility] [address] [place] [id number] [place] [address] Apr, Osteoarthritis, unspecified osteoarthritis type, unspecified site M19.90 [facility] [address] [place] [id number] [address] Mar, [facility] [address] [place] [id number] [place] [address] Mar, Osteoarthritis, unspecified osteoarthritis type, unspecified site M19.90 and Lumbago with sciatica, left side M54.42 [facility] [address] [place] [id number] [place] [address] Feb, [facility] [address] [place] [id number] [address] Feb, [facility] [id number] [address] Feb, Osteoarthritis, unspecified osteoarthritis type, unspecified site M19.90 [facility] [address] [place] [address] [id number] [place] [address] Feb, [facility] [address] [place] [address] [id number] [place] [address] Feb, Low back pain M54.5 and Other chronic pain G89.29 [facility] [address] [place] [id number] [place] [address] Feb, [facility] [address] [place] [id number] [place] [address] Jan, [facility] [address] [place] [id number] [place] [address] Jan, [facility] [address] [place] [address] [id number] [place] [address] 24 Dec, 2015 Lumbago with sciatica, left side M54.42 [facility] [address] [place] [id number] [place] [address] 15 Dec, 2015 Irritable bowel syndrome with both constipation and diarrhea K58.0 ; Screening, lipid Z13.220 ; Nocturia R35.1 ; Family history of diabetes mellitus Z83.3 and Dysuria R30.0 [place] [address] [place] [address] 14 Dec, 2015 Irritable bowel syndrome with both constipation and diarrhea K58.0 ; Nocturia R35.1 ; Family history of diabetes mellitus Z83.3 ; Dysuria R30.0 and Screening, lipid Z13.220 [facility] [address] [place] [id number] [place] [address] 12 Dec, 2015 [facility] [address] [place] [id number] [place] [address] 07 Dec, 2015 [facility] [address] [place] [address] [id number] [place] [address] Dec, Pain with swallowing R13.10 [facility] [address] [place] [address] [id number] [place] [address] Nov, [facility] [address] [place] [address] [id number] [place] [address] Nov, [facility] [address] [place] [address] [id number] [place] [address] Oct, [facility] [address] [id number] [place] [address] Sep, [facility] [address] [place] [id number] [place] [address] Sep, Osteoarthritis, unspecified osteoarthritis type, unspecified site M19.90 [facility] [address] [place] [id number] [place] [address] 07 Sep, 2015 Back pain M54.9 [facility] [address] [place] [id number] [place] [address] Sep, Lumbago with sciatica, right side M54.41 and Bilateral impacted cerumen H61.23 [facility] [address] [place] [id number] [place] [address] Sep, [facility] [address] [place] [id number] [place] [address] August, Bronchitis J40 [facility] [address] [id number] [place] [address] August, [facility] [address] [address] [id number] [place] [address] August, [facility] [address] [id number] [place] [address] August, [facility] [address] [id number] [place] [address] Jul, [facility] [address] [place] [id number] [place] [address] Jul, Back pain M54.9 [facility] [address] [place] [id number] [place] [address] Jun, Degenerative disc disease at L5-S1 level M51.36 and Bronchitis J40 [facility] [address] [place] [address] [id number] [place] [address] Jun, [facility] [address] [address] May, [facility] [address] [place] [id number] [place] [address] Apr, [facility] [address] [address] Mar, [facility] [address] [place] [id number] [place] [address] Mar, [facility] [id number] [place] [address] Feb, [facility] [id number] [place] [address] Jan, [facility] [id number] [place] [address] Dec, [facility] [address] [place] [id number] [place] [address] Nov, [facility] [address] [place] [id number] [place] [address] Oct, [facility] [address] [place] [id number] [place] [address] Oct, Right shoulder pain 719.41 [facility] [address] [address] Sep, [facility] [address] [place] [id number] [place] [address] Sep, Vertigo 780.4 and Elbow fracture, right 812.40 [facility] [place] [facility] [address] [id number] [place] [address] 08 Sep, 2014 [facility] [place] [facility] [address] [id number] [place] [address] August, [facility] [place] [facility] [address] [id number] [place] [address] Jul, [facility] [place] [facility] [address] [id number] [place] [address] Jul, [facility] [place] [facility] [address] [id number] [place] [address] Jun, [facility] [place] [facility] [address] [id number] [place] [address] Jun, [facility] [place] [facility] [address] [id number] [place] [address] Jun, [facility] [place] [facility] [address] [id number] [place] [address] Jun, [facility] [place] [facility] [address] [id number] [place] [address] Jun, [facility] [place] [facility] [address] [id number] [place] [address] Jun, [facility] [place] [facility] [address] [id number] [place] [address] May, [facility] [place] [facility] [address] [id number] [address] May, [facility] [place] [facility] [address] [id number] [place] [address] May, [facility] [place] [facility] [address] [id number] [place] [address] May, [facility] [place] [facility] [address] [id number] [place] [address] May, [facility] [place] [facility] [address] [id number] [place] [address] May, [facility] [place] [facility] [address] [id number] [place] [address] Apr, [facility] [place] [facility] [address] [id number] [place] [address] Apr, [facility] [place] [facility] [address] [id number] [place] [address] Apr, [facility] [place] [facility] [address] [id number] [place] [address] Apr, [facility] [place] [facility] [address] [id number] [place] [address] Apr, [facility] [place] [facility] [address] [id number] [place] [address] Apr, [facility] [place] [facility] [address] [id number] [place] [address] Apr, [facility] [place] [facility] [address] [id number] [place] [address] Mar, [facility] [place] [facility] [address] [id number] [place] [address] Mar, [facility] [place] [facility] [address] [facility] [id number] [place] [address] Mar, [facility] [place] [facility] [address] [id number] [place] [address] 31 Mar, 2014 [facility] [place] [facility] [address] [id number] [place] [address] 31 Mar, 2014 [facility] [place] [facility] [address] [id number] [place] [address] Mar, [facility] [place] [facility] [address] [id number] [place] [address] 30 Mar, 2014 [facility] [place] [facility] [address] [id number] [place] [address] 30 Mar, 2014 [facility] [place] [facility] [address] [id number] [place] [address] Mar, [facility] [place] [facility] [address] [id number] [place] [address] Mar, [facility] [place] [facility] [address] [id number] [place] [address] Mar, [facility] [place] [facility] [address] [id number] [place] [address] Mar, [facility] [place] [facility] [address] [id number] [place] [address] Mar, [facility] [place] [facility] [address] [id number] [place] [address] Mar, [facility] [place] [facility] [address] [id number] [place] [address] Mar, [facility] [place] [facility] [address] [id number] [place] [address] Feb, [facility] [place] [facility] [address] [id number] [place] [address] Feb, [facility] [place] [facility] [address] [id number] [place] [address] Feb, [facility] [place] [facility] [address] [id number] [place] [address] Feb, [facility] [place] [facility] [address] [id number] [place] [address] Feb, [facility] [place] [facility] [address] [id number] [place] [address] Feb, [facility] [place] [facility] [address] [id number] [place] [address] Jan, [facility] [place] [facility] [address] [id number] [place] [address] Jan, [facility] [place] [facility] [address] [id number] [address] 08 Jan, 2014 [facility] [place] [facility] [address] [id number] [place] [address] 08 Jan, 2014 [facility] [place] [facility] [address] [id number] [place] [address] Jan, [facility] [place] [facility] [address] [id number] [place] [address] Jan, [facility] [place] [facility] [address] [id number] [place] [address] 29 Dec, 2013 [facility] [place] [facility] [address] [id number] [place] [address] 29 Dec, 2013 [facility] [place] [facility] [address] [id number] [place] [address] 26 Dec, 2013 [facility] [place] [facility] [address] [id number] [place] [address] Dec, 2013 [facility] [place] [facility] [address] [id number] [place] [address] Dec, 2013 [facility] [place] [facility] [address] [id number] [place] [address] 08 Dec, 2013 [facility] [place] [facility] [address] [id number] [place] [address] 08 Dec, 2013 [facility] [place] [facility] [address] [id number], [place] [address] 08 Dec, 2013 [facility] [place] [facility] [address] [id number], [place] [address] 08 Dec, 2013 [facility] [place] [facility] [address] [id number] [place] [address] Dec, 2013 [facility] [place] [facility] [address] [id number] [place] [address] Dec, 2013 [facility] [place] [facility] [address] [id number] [place] [address] Nov, [facility] [place] [facility] [address] [id number] [place] [address] Nov, [facility] [place] [facility] [address] [id number] [place] [address] Nov, [facility] [place] [facility] [address] [id number] [place] [address] Nov, [facility] [place] [facility] [address] [id number] [place] [address] Nov, [facility] [place] [facility] [address] [id number] [place] [address] Nov, [facility] [place] [facility] [address] [id number] [place] [address] Nov, [facility] [place] [facility] [address] [id number] [place] [address] Nov, [facility] [place] [facility] [address] [id number] [place] [address] Nov, [facility] [place] [facility] [address] [id number] [place] [address] Nov, [facility] [place] [facility] [address] [id number] [place] [address] Oct, [facility] [place] [facility] [address] [id number] [place] [address] Oct, [facility] [place] [facility] [address] [id number] [place] [address] Oct, [facility] [place] [facility] [address] [id number] [place] [address] Oct, [facility] [place] [facility] [address] [id number] [place] [address] Oct, [facility] [place] [facility] [address] [id number] [place] [address] Oct, [facility] [place] [facility] [address] [id number] [place] [address] Oct, [facility] [place] [facility] [address] [id number] [place] [address] Oct, [facility] [place] [facility] [address] [id number] [place] [address] Oct, [facility] [place] [facility] [address] [id number] [place] [address] Oct, [facility] [place] [facility] [address] [id number] [place] [address] Oct, [facility] [place] [facility] [address] [id number] [place] [address] Oct, [facility] [place] [facility] [address] [id number] [place] [address] Oct, [facility] [place] [facility] [address] [id number] [place] [address] Sep, [facility] [place] [facility] [address] [id number] [place] [address] Sep, [facility] [place] [facility] [address] [id number] [place] [address] Sep, [facility] [place] [facility] [address] [id number] [place] [address] Sep, [facility] [place] [facility] [address] [id number] [place] [address] August, [facility] [place] [facility] [address] [id number] [place] [address] August, [facility] [place] [facility] [address] [id number] [place] [address] August, [facility] [place] [facility] [address] [id number] [place] [address] August, [facility] [place] [facility] [address] [id number] [place] [address] August, [facility] [place] [facility] [address] [id number] [place] [address] August, [facility] [place] [facility] [address] [id number] [place] [address] August, [facility] [place] [facility] [address] [id number] [place] [address] August, [facility] [place] [facility] [address] [id number] [place] [address] Jul, [facility] [place] [facility] [address] [id number] [place] [address] Jul, [facility] [place] [facility] [address] [id number] [place] [address] Jun, [facility] [place] [facility] [address] [id number] [place] [address] Jun, [facility] [place] [facility] [address] [facility] [id number] [place] [address] Jun, [facility] [place] [facility] [address] [id number] [place] [address] Jun, [facility] [place] [facility] [address] [id number] [place] [address] Jun, [facility] [place] [facility] [address] [facility] [id number] [place] [address] Jun, [facility] [place] [facility] [address] [id number] [place] [address] May, [facility] [place] [facility] [address] [id number] [place] [address] May, [facility] [place] [facility] [address] [id number] [place] [address] May, [facility] [place] [facility] [address] [id number] [place] [address] May, [facility] [place] [facility] [address] [id number] [place] [address] May, [facility] [place] [facility] [address] [id number] [place] [address] 07 May, 2013 [facility] [place] [facility] [address] [id number] [place] [address] Apr, [facility] [place] [facility] [address] [id number] [place] [address] Apr, [facility] [place] [facility] [address] [id number] [place] [address] 15 Feb, 2013 [facility] [place] [facility] [address] [id number] [place] [address] 15 Feb, 2013 [facility] [place] [facility] [address] [id number] [place] [address] Feb, [facility] [place] [facility] [address] [id number] [place] [address] 15 Feb, 2013 [facility] [place] [facility] [address] [id number] [place] [address] Feb, [facility] [place] [facility] [address] [id number] [place] [address] Feb, [facility] [place] [facility] [address] [id number] [address] Feb, [facility] [place] [facility] [address] [id number] [place] [address] Feb, [facility] [place] [facility] [address] [id number], [place] [address] 08 Feb, 2013 [facility] [place] [facility] [address] [id number], [place] [address] Jan, [facility] [place] [facility] [address] [id number] [place] [address] 27 Jan, 2013 [facility] [place] [facility] [address] [id number], [place] [address] 10 Jan, 2013 [facility] [place] [facility] [address] [id number], [place] [address] Jan, [facility] [place] [facility] [address] [id number] [place] [address] Jan, [facility] [place] [facility] [address] [id number] [place] [address] Jan, [facility] [place] [facility] [address] [id number] [place] [address] Dec, [facility] [place] [facility] [address] [id number] [place] [address] Dec, [facility] [place] [facility] [address] [id number] [place] [address] 05 Dec, 2012 [facility] [place] [facility] [address] [id number] [place] [address] Dec, [facility] [place] [facility] [address] [id number] [place] [address] Oct, [facility] [place] [facility] [address] [id number] [place] [address] Oct, [facility] [place] [facility] [address] [id number] [place] [address] Oct, [facility] [place] [facility] [address] [id number] [place] [address] Oct, [facility] [place] [facility] [address] [id number] [place] [address] Oct, [facility] [place] [facility] [address] [id number] [place] [address] Sep, [facility] [place] [facility] [address] [id number] [place] [address] August, [facility] [place] [facility] [address] [id number] [place] [address] August, [facility] [place] [facility] [address] [id number] [place] [address] August, [facility] [place] [facility] [address] [id number] [place] [address] August, [facility] [address] [id number] [place] [address] August, [facility] [address] [id number] [place] [address] August, [facility] [address] [id number] [place] [address] August, [facility] [address] [id number] [place] [address] August, [facility] [address] [id number] [place] [address] August, [facility] [address] [id number] [place] [address] August, [facility] [address] [id number] [place] [address] August, [facility] [address] [id number] [place] [address] August, [facility] [address] [id number] [place] [address] Jun, [facility] [address] [id number] [place] [address] Jun, [facility] [address] [id number] [place] [address] Jun, [facility] [address] [id number] [place] [address] May, [facility] [address] [id number] [place] [address] May, [facility] [address] [id number] [place] [address] Mar, [facility] [address] [id number] [place] [address] Mar, [facility] [place] [facility] [address] [id number] [place] [address] Feb, [facility] [place] [facility] [address] [id number] [place] [address] Feb, [facility] [place] [facility] [address] [id number] [place] [address] Feb, [facility] [place] [facility] [address] [id number] [place] [address] Feb, [facility] [place] [facility] [address] [id number] [place] [address] Dec, [facility] [place] [facility] [address] [id number] [place] [address] August, [facility] [place] [facility] [address] [facility] [id number] [place] [address] Jul, [facility] [place] [facility] [address] [id number] [place] [address] 05 Jul, 2011 [facility] [place] [facility] [address] [id number] [place] [address] Jun, [facility] [place] [facility] [address] [id number], [place] [address] Jun, [facility] [place] [facility] [address] [id number], [place] [address] Jun, [facility] [place] [facility] [address] [id number], [place] [address] Jun, [facility] [place] [facility] [address] [id number] [place] [address] Jun, [facility] [place] [facility] [address] [id number], [place] [address] May, [facility] [place] [facility] [address] [id number] [place] [address] May, [facility] [place] [facility] [id number] [address] 14 May, 2011 [facility] [id number] [address] May, [facility] [id number] [address] Apr, [facility] [id number] [address] Apr, [facility] [id number] [address] Apr, [facility] [id number] [place] [address] Mar, [facility] [id number] [place] [address] Mar, [facility] [id number] [place] [address] Mar, [facility] [id number], [place] [address] Mar, [facility] [id number] [place] [address] May, [facility] [id number], [place] [address] Feb, [facility] [id number] [address] Feb, [facility] [id number], [place] [address] Jan, [facility] [address], [place] [address] Jan, IMMUNIZATIONS No Known Immunizations SOCIAL HISTORY Never Assessed REASON FOR VISIT Controlled Med Refill 11/20/2016 PLAN OF CARE VITAL SIGNS MEDICATIONS Medication Instructions Dosage Frequency Start Date End Date Duration Status Xanax 1 MG Orally Twice a day 1 tablet 12h 25 Jun, 2014 28 days Active Oxycodone HCl 10 MG Orally Once a day 1 tablet 24h Oct, 28 days Active RESULTS No Results PROCEDURES [...]
--- OUTSIDE RECORDS SUMMARY | 2018-09-19 01:46 | XMS REPORT ---
Author Author SAMMY RAZATE [facility] eClinical[employer] Address Unknown Phone Unavailable Care Team Providers Care Grain Inspector Name Role Phone SAMMY ARZATE CP Unavailable [...] Start Date End Date Status Dosage Xanax [facility] [address]-84 1 MG July 20, 2014 1 tablet by Oral route 2 times per day Results No Known Results Summary Purpose eClinicalWorks Submission
--- OUTSIDE RECORDS SUMMARY | 2018-09-19 01:46 | XMS REPORT ---
Author Author SAMMY ARZATE [facility] Address [address] [place] [address] Care Team Providers Care Color Coater Name Role Phone SAMMY ARZATE Unavailable PROBLEMS Type Condition ICD9-CM Code [id number] Code Onset Dates Condition Status SNOMED Code Problem Other chronic nonalcoholic liver disease 571.8 Active 58541378 Problem Major depressive disorder, recurrent episode, moderate 296.32 Active 87983557 Problem Family history of other malignant neoplasm V16.49 Active 569483939 Problem Diaphragmatic hernia without mention of obstruction or gangrene 553.3 Active 13780336 Problem Cervicalgia 723.1 Active 30403653 Problem Umbilical hernia without mention of obstruction or gangrene 553.1 Active 212084663 Problem Family history of diabetes mellitus V18.0 Active 702766508 Problem Other abnormal glucose 790.29 Active 844204551 Problem Abdominal pain, generalized 789.07 Active 218132130 Problem Abdominal pain, right lower quadrant 789.03 Active 799605891 Problem Unspecified otalgia 388.70 Active 09360203 Problem Unspecified neuralgia, neuritis, and radiculitis 729.2 Active 24036512 Problem 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 66721064 Problem Other postprocedural status V45.89 Active 72655529 Problem Chest pain, unspecified 786.50 Active 17629369 Problem Anxiety state, unspecified 300.00 Active 110856510 Problem Osteoarthritis, unspecified osteoarthritis type, unspecified site M19.90 Active 855047824 Problem 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 Active 978003338 Problem Panic disorder without agoraphobia 300.01 Active 41741612 Problem Major depressive disorder, recurrent episode, severe, without mention of psychotic behavior 296.33 Active 21481845 Problem Umbilical hernia with obstruction 552.1 Active 967806055 Problem Depressive disorder, not elsewhere classified 311 Active 71185384 Problem Esophageal reflux 530.81 Active 515537820 Problem 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 Active 979468152 Problem Other abnormal blood chemistry 790.6 Active 471156657 Problem Family history of malignant neoplasm of gastrointestinal tract V16.0 Active 889111599 Problem Abnormal involuntary movements 781.0 Active 694465487 Problem Essential hypertension, benign 401.1 Active 9142263 Problem Abdominal pain, epigastric 789.06 Active 77622491 Problem Other malaise and fatigue 780.79 Active 953963241 Problem Lumbago 724.2 Active 764634154 Problem Family history of other cardiovascular diseases V17.49 Active 531361928 Problem Memory loss 780.93 Active 08502556 ALLERGIES Unknown Allergies SOCIAL HISTORY No smoking Hx information available PLAN OF CARE VITAL SIGNS MEDICATIONS Medication Instructions Dosage Frequency Start Date End Date Duration Status Test strips Test Strips Glucocard Expression 2 times a day test blood sugar 12h 12 Dec, 2015 Active RESULTS No Results PROCEDURES No Known procedures IMMUNIZATIONS No Known Immunizations
--- OUTSIDE RECORDS SUMMARY | 2018-09-19 01:46 | XMS REPORT ---
Author Author SAMMY ARZATE [facility] eClinicalWorks Address Unknown Phone Unavailable Care Team Providers Care Swatch Maker Name Role Phone SAMMY ARZATE CP Unavailable [...] Start Date End Date Status Dosage Xanax [facility] [address]-00 1 MG Orally Twice a day July 20, 2014 1 tablet Results No Known Results Summary Purpose eClinicalWorks Submission
--- OUTSIDE RECORDS SUMMARY | 2018-09-19 01:47 | XMS REPORT ---
Author Author SAMMY ARZATE [facility] Address [address] [place] [address] Care Team Providers Care Pressure Dispatcher Name Role Phone SAMMY ARZATE Unavailable PROBLEMS Type Condition ICD9-CM Code [id number] Code Onset Dates Condition Status SNOMED Code Problem Diaphragmatic hernia without mention of obstruction or gangrene 553.3 Active 03883097 Problem Other chronic nonalcoholic liver disease 571.8 Active 87341715 Problem Cervicalgia 723.1 Active 36513369 Problem Family history of other malignant neoplasm V16.49 Active 331912775 Problem Umbilical hernia without mention of obstruction or gangrene 553.1 Active 078379321 Problem Family history of diabetes mellitus V18.0 Active 642800495 Problem Other abnormal glucose 790.29 Active 513045926 Problem Abdominal pain, generalized 789.07 Active 606322938 Problem Unspecified otalgia 388.70 Active 25971809 Problem Unspecified neuralgia, neuritis, and radiculitis 729.2 Active 86823184 Problem 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 11526789 Problem Other postprocedural status V45.89 Active 52490150 Problem Umbilical hernia with obstruction 552.1 Active 217428259 Problem Anxiety state, unspecified 300.00 Active 820855769 Problem Esophageal reflux 530.81 Active 951119329 Problem Chest pain, unspecified 786.50 Active 66763160 Problem Other chronic pain G89.29 Active 11005365 Problem Osteoarthritis, unspecified osteoarthritis type, unspecified site M19.90 Active 835061035 Problem Essential hypertension, benign 401.1 Active 5298835 Problem Panic disorder without agoraphobia 300.01 Active 60510769 Problem Major depressive disorder, recurrent episode, severe, without mention of psychotic behavior 296.33 Active 13651464 Problem Other abnormal blood chemistry 790.6 Active 340838190 Problem Depressive disorder, not elsewhere classified 311 Active 51371977 Problem 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 Active 903427280 Problem 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 Active 895288950 Assessment Low back pain M54.5 Feb, Active 736220151 Problem Abnormal involuntary movements 781.0 Active 183429545 Problem Major depressive disorder, recurrent episode, moderate 296.32 Active 99783527 Problem Family history of other cardiovascular diseases V17.49 Active 228260463 Problem Abdominal pain, epigastric 789.06 Active 65068059 Problem Family history of malignant neoplasm of gastrointestinal tract V16.0 Active 990893170 Problem Lumbago 724.2 Active 445341672 Problem Abdominal pain, right lower quadrant 789.03 Active 982514443 Problem Memory loss 780.93 Active 71570338 Problem Other malaise and fatigue 780.79 Active 300618161 ALLERGIES Substance Reaction Event Type Date Status Remeron Unknown Drug Allergy Feb, Active Bentyl 20 Mg Tablet Unknown Non Drug Allergy Feb, Active Ranitidine Hcl 150 Mg Tablet Unknown Non Drug Allergy Feb, Active SOCIAL HISTORY No smoking Hx information available PLAN OF CARE VITAL SIGNS Height 73 in 2016-03-14 Weight 214.6 lbs 2016-03-14 Heart Rate 80 bpm 2016-03-14 Respiratory Rate 20 2016-03-14 BMI 28.31 kg/m2 2016-03-14 Blood pressure systolic 122 mmHg 2016-03-14 Blood pressure diastolic 76 mmHg 2016-03-14 MEDICATIONS Medication Instructions Dosage Frequency Start Date End Date Duration Status Nexium 40 MG TAKE ONE CAPSULE BY MOUTH ONCE DAILY 30 Active Cyclobenzaprine HCl 10 MG Orally Three times a day 1 tablet as needed 8h Active Xanax 1 MG Orally Twice a day 1 tablet 12h 25 Jun, 2014 28 days Active ProAir HFA 108 (90 Base) MCG/ACT Inhalation every 6hrs 2 puffs as needed 30 days Active Rapaflo 8 MG TAKE ONE CAPSULE BY MOUTH DAILY 30 Active Esomeprazole Magnesium 40 MG TAKE ONE CAPSULE BY MOUTH ONCE DAILY 30 Active Oxycodone HCl 10 mg Orally Once a day 1 tablet 24h Feb, Active RESULTS Name Result Date Reference Range [employer] 2016-03-14 PROCEDURES Procedure Date Ordered Related Diagnosis Body Site No Charge Mar 14, 2016 [facility] VISIT ESTABLISHED PATIENT Mar 14, 2016 Office Visit, Est Pt., Level 3 Mar 14, 2016 IMMUNIZATIONS No Known Immunizations
--- OUTSIDE RECORDS SUMMARY | 2018-09-19 01:47 | XMS REPORT ---
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 Active 002695808 Problem 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 Active 670451974 Problem Other chronic pain G89.29 Active 41571925 Problem Osteoarthritis, unspecified osteoarthritis type, unspecified site M19.90 Active 164067036 ALLERGIES No Information ENCOUNTERS Encounter Location Date Diagnosis [place] [address] [address] August, Other chronic pain G89.29 and Other specified personal risk factors, not elsewhere classified Z91.89 [place] [address] [place] [id number] [place] [address] August, Osteoarthritis, unspecified osteoarthritis type, unspecified site M19.90 [place] [address] [address] Jul, Osteoarthritis, unspecified osteoarthritis type, unspecified site M19.90 [place] [address] [address] Jun, Osteoarthritis, unspecified osteoarthritis type, unspecified site M19.90 [place] [address] [address] Jun, [place] [address] [address] Jun, Osteoarthritis, unspecified osteoarthritis type, unspecified site M19.90 [place] [address] [address] May, [place] [address] [address] May, Benign prostatic hyperplasia, unspecified whether lower urinary tract symptoms present N40.0 [place] [address] [place] [address] May, Osteoarthritis, unspecified osteoarthritis type, unspecified site M19.90 [place] [address] [place] [address] May, [place] [address] [place] [address] Apr, Other chronic pain G89.29 ; Family history of diabetes mellitus Z83.3 ; Forgetfulness R68.89 ; History of multiple concussions Z87.820 ; Gastroesophageal reflux disease without esophagitis K21.9 and Screening, lipid Z13.220 [place] [address] [address] Apr, Other chronic pain G89.29 ; Forgetfulness R68.89 ; History of multiple concussions Z87.820 ; Gastroesophageal reflux disease without esophagitis K21.9 ; Screening, lipid Z13.220 and Family history of diabetes mellitus Z83.3 [place] [address] [address] Apr, Osteoarthritis, unspecified osteoarthritis type, unspecified site M19.90 [place] [address] [address] Apr, Osteoarthritis, unspecified osteoarthritis type, unspecified site M19.90 [place] [address] [address] Apr, [place] [address] [address] Mar, Osteoarthritis, unspecified osteoarthritis type, unspecified site M19.90 [facility] [address] [address] Feb, Osteoarthritis, unspecified osteoarthritis type, unspecified site M19.90 [facility] [address] [address] Jan, Osteoarthritis, unspecified osteoarthritis type, unspecified site M19.90 [facility] [address] [address] Dec, Osteoarthritis, unspecified osteoarthritis type, unspecified site M19.90 [facility] [address] [address] Dec, [place] [address] [place] [id number] [place] [address] Nov, Encounter for screening for lipid disorder Z13.220 [facility] [address] [address] Nov, Osteoarthritis, unspecified osteoarthritis type, unspecified site M19.90 ; Encounter for screening for lipid disorder Z13.220 and Other chronic pain G89.29 [facility] [address] [address] Nov, Osteoarthritis, unspecified osteoarthritis type, unspecified site M19.90 [facility] [address] [address] Nov, [facility] [address] [address] Nov, [facility] [address] [address] Oct, Osteoarthritis, unspecified osteoarthritis type, unspecified site M19.90 [facility] [address] [address] Oct, Gastroesophageal reflux disease without esophagitis K21.9 [facility] [address] [place] [id number] [place] [address] Sep, Osteoarthritis, unspecified osteoarthritis type, unspecified site M19.90 [facility] [address] [place] [id number] [place] [address] August, Osteoarthritis, unspecified osteoarthritis type, unspecified site M19.90 [place] [address] [place] [id number] [place] [address] August, Osteoarthritis, unspecified osteoarthritis type, unspecified site M19.90 [place] [address] [place] [id number] [place] [address] Jul, Osteoarthritis, unspecified osteoarthritis type, unspecified site M19.90 and Gastroesophageal reflux disease without esophagitis K21.9 [place] [address] [place] [id number] [place] [address] Jul, Osteoarthritis, unspecified osteoarthritis type, unspecified site M19.90 [place] [address] [place] [id number] [place] [address] Jun, Ventral hernia without obstruction or gangrene K43.9 [place] [address] [place] [id number] [place] [address] Jun, Osteoarthritis, unspecified osteoarthritis type, unspecified site M19.90 [place] [address] [place] [id number] [place] [address] May, [place] [address] [place] [id number] [place] [address] May, Osteoarthritis, unspecified osteoarthritis type, unspecified site M19.90 [facility] [address] [place] [id number] [place] [address] Apr, Osteoarthritis, unspecified osteoarthritis type, unspecified site M19.90 [place] [address] [place] [id number] [place] [address] Mar, [facility] [address] [place] [address] Mar, Osteoarthritis, unspecified osteoarthritis type, unspecified site M19.90 and Lumbago with sciatica, left side M54.42 [facility] [address] [place] [id number] [place] [address] Feb, [facility] [address] [place] [id number] [place] [address] Feb, [facility] [address] [place] [id number] [place] [address] Feb, Osteoarthritis, unspecified osteoarthritis type, unspecified site M19.90 [facility] [address] [place] [id number] [place] [address] Feb, [place] [address] [place] [id number] [place] [address] Feb, Low back pain M54.5 and Other chronic pain G89.29 [place] [address] [place] [id number] [place] [address] Feb, [facility] [address] [place] [id number] [place] [address] Jan, [facility] [address] [place] [id number] [place] [address] Jan, [facility] [address] [place] [id number] [place] [address] 24 Dec, 2015 Lumbago with sciatica, left side M54.42 [facility] [address] [place] [id number] [place] [address] 15 Dec, 2015 Irritable bowel syndrome with both constipation and diarrhea K58.0 ; Screening, lipid Z13.220 ; Nocturia R35.1 ; Family history of diabetes mellitus Z83.3 and Dysuria R30.0 [facility] [address] [place] [id number] [place] [address] 14 Dec, 2015 Irritable bowel syndrome with both constipation and diarrhea K58.0 ; Nocturia R35.1 ; Family history of diabetes mellitus Z83.3 ; Dysuria R30.0 and Screening, lipid Z13.220 [facility] [address] [place] [id number] [place] [address] 12 Dec, 2015 [facility] [address] [address] 07 Dec, 2015 [facility] [address] [place] [id number] [place] [address] Dec, Pain with swallowing R13.10 [place] [address] [address] Nov, [place] [address] [place] [id number] [place] [address] Nov, [facility] [address] [address] Oct, [place] [address] [place] [id number] [place] [address] Sep, [place] [address] [address] Sep, Osteoarthritis, unspecified osteoarthritis type, unspecified site M19.90 [place] [address] [place] [id number] [place] [address] Sep, Back pain M54.9 [place] [address] [place] [id number] [place] [address] Sep, Lumbago with sciatica, right side M54.41 and Bilateral impacted cerumen H61.23 [facility] [address] [place] [id number] [place] [address] Sep, [facility] [address] [place] [id number] [place] [address] August, Bronchitis J40 [place] [address] [address] August, [facility] [address] [place] [address] August, [facility] [address], [place] [address] August, [facility] [address] [place] [id number] [place] [address] Jul, [facility] [address] [place] [id number] [place] [address] Jul, Back pain M54.9 [facility] [address] [place] [id number] [place] [address] Jun, Degenerative disc disease at L5-S1 level M51.36 and Bronchitis J40 [facility] [address] [place] [id number] [place] [address] Jun, [facility] [address] [place] [id number], [place] [address] May, [facility] [address] [place] [id number] [place] [address] Apr, [facility] [address] [place] [id number] [address] Mar, [facility] [address], [place] [address] Mar, [facility] [address], [place] [address] Feb, [facility] [address] [place] [address] Jan, [facility] [address] [place] [id number] [address] Dec, [facility] [address] [address] Nov, [facility] [address] [facility] [id number] [address] Oct, [facility] [address], [place] [address] Oct, Right shoulder pain 719.41 [facility] [address] [address] Sep, [facility] [address] [place] [id number] [place] [address] Sep, Vertigo 780.4 and Elbow fracture, right 812.40 [facility] [address] [place] [id number] [place] [address] Sep, [facility] [address] [place] [id number] [address] August, [facility] [address] [place] [address] Jul, [facility] [address], [place] [address] Jul, [facility] [address], [place] [address] Jun, [facility] [address], [place] [address] Jun, [facility] [address] [place] [address] Jun, [facility] [address] [address] Jun, [facility] [address] [address] Jun, [facility] [address] [place] [id number] [address] Jun, [facility] [address], [place] [address] May, [facility] [place] [facility] [address] [id number] [place] [address] May, [facility] [place] [facility] [address] [id number] [place] [address] May, [facility] [place] [facility] [address] [id number] [place] [address] May, [facility] [place] [facility] [address] [id number] [place] [address] May, [facility] [place] [facility] [address] [id number] [place] [address] May, [facility] [place] [facility] [address] [id number] [place] [address] Apr, [facility] [place] [facility] [address] [id number] [place] [address] Apr, [facility] [place] [facility] [address] [id number] [place] [address] Apr, [facility] [place] [facility] [address] [id number] [place] [address] Apr, [facility] [place] [facility] [address] [facility] [id number] [place] [address] Apr, [facility] [place] [facility] [address] [id number] [place] [address] Apr, [facility] [place] [facility] [address] [id number] [place] [address] Apr, [facility] [place] [facility] [address] [id number] [place] [address] Mar, [facility] [place] [facility] [address] [id number] [place] [address] Mar, [facility] [place] [facility] [address] [id number] [place] [address] Mar, [facility] [place] [facility] [address] [id number] [address] Mar, [facility] [place] [facility] [address] [id number] [place] [address] Mar, [facility] [place] [facility] [address] [id number] [place] [address] Mar, [facility] [place] [facility] [address] [facility] [id number] [place] [address] Mar, [facility] [place] [facility] [address] [id number] [place] [address] Mar, [facility] [place] [facility] [address] [id number] [place] [address] Mar, [facility] [place] [facility] [address] [id number] [place] [address] Mar, [facility] [place] [facility] [address] [facility] [id number] [place] [address] Mar, [facility] [place] [facility] [address] [id number] [place] [address] Mar, [facility] [place] [facility] [address] [id number] [place] [address] Mar, [facility] [place] [facility] [address] [facility] [id number] [place] [address] Mar, [facility] [place] [facility] [address] [id number] [place] [address] Mar, [facility] [place] [facility] [address] [id number] [address] Feb, [facility] [place] [facility] [address] [id number] [place] [address] Feb, [facility] [place] [facility] [address] [facility] [id number] [place] [address] Feb, [facility] [place] [facility] [address] [facility] [id number] [place] [address] Feb, [facility] [place] [facility] [address] [id number] [place] [address] Feb, [facility] [place] [facility] [address] [id number] [place] [address] Feb, [facility] [place] [facility] [address] [id number] [place] [address] Jan, [facility] [place] [facility] [address] [id number] [place] [address] Jan, [facility] [place] [facility] [address] [id number] [place] [address] Jan, [facility] [place] [facility] [address] [id number] [place] [address] Jan, [facility] [place] [facility] [address] [id number] [place] [address] Jan, [facility] [place] [facility] [address] [id number] [place] [address] Jan, [facility] [place] [facility] [address] [id number] [place] [address] 29 Dec, 2013 [facility] [place] [facility] [address] [id number] [place] [address] 29 Dec, 2013 [facility] [place] [facility] [address] [id number] [place] [address] 26 Dec, 2013 [facility] [place] [facility] [address] [id number] [place] [address] 11 Dec, 2013 [facility] [place] [facility] [address] [id number] [place] [address] 11 Dec, 2013 [facility] [place] [facility] [address] [id number] [place] [address] 08 Dec, 2013 [facility] [place] [facility] [address] [id number] [place] [address] 08 Dec, 2013 [facility] [place] [facility] [address] [id number] [place] [address] Dec, [facility] [place] [facility] [address] [id number] [place] [address] Dec, [facility] [place] [facility] [address] [id number] [place] [address] Dec, [facility] [place] [facility] [address] [id number] [place] [address] Dec, [facility] [place] [facility] [address] [id number] [place] [address] Nov, [facility] [place] [facility] [address] [id number] [place] [address] Nov, [facility] [place] [facility] [address] [id number] [place] [address] Nov, [facility] [place] [facility] [address] [id number] [place] [address] Nov, [facility] [place] [facility] [address] [id number] [place] [address] Nov, [facility] [place] [facility] [address] [id number] [place] [address] Nov, [facility] [place] [facility] [address] [id number] [place] [address] Nov, [facility] [place] [facility] [address] [id number] [address] Nov, [facility] [place] [facility] [address] [id number], [place] [address] Nov, [facility] [place] [facility] [address] [id number] [place] [address] Nov, [facility] [place] [facility] [address] [id number] [place] [address] Oct, [facility] [place] [facility] [address] [id number] [place] [address] Oct, [facility] [place] [facility] [address] [id number] [place] [address] Oct, [facility] [place] [facility] [address] [id number] [place] [address] Oct, [facility] [place] [facility] [address] [id number] [place] [address] Oct, [facility] [place] [facility] [address] [id number] [place] [address] Oct, [facility] [place] [facility] [address] [id number] [place] [address] Oct, [facility] [place] [facility] [address] [id number] [place] [address] Oct, [facility] [place] [facility] [address] [id number] [place] [address] Oct, [facility] [place] [facility] [address] [id number] [place] [address] Oct, [facility] [place] [facility] [address] [id number] [place] [address] Oct, [facility] [place] [facility] [address] [id number] [place] [address] Oct, [facility] [place] [facility] [address] [id number] [place] [address] Oct, [facility] [place] [facility] [address] [id number] [place] [address] Sep, [facility] [place] [facility] [address] [id number] [place] [address] Sep, [facility] [place] [facility] [address] [id number] [place] [address] Sep, [facility] [place] [facility] [address] [id number] [place] [address] Sep, [facility] [place] [facility] [address] [id number] [place] [address] August, [facility] [place] [facility] [address] [id number] [place] [address] August, [facility] [place] [facility] [address] [id number] [place] [address] August, [facility] [place] [facility] [address] [id number] [place] [address] August, [facility] [place] [facility] [address] [id number] [place] [address] August, [facility] [place] [facility] [address] [id number] [place] [address] August, [facility] [place] [facility] [address] [id number] [place] [address] August, [facility] [place] [facility] [address] [id number] [place] [address] August, [facility] [address] [id number] [place] [address] Jul, [facility] [place] [facility] [address] [id number] [place] [address] Jul, [facility] [place] [facility] [address] [id number] [place] [address] Jun, [facility] [place] [facility] [address] [id number] [place] [address] Jun, [facility] [place] [facility] [address] [id number] [place] [address] Jun, [facility] [place] [facility] [address] [id number] [place] [address] Jun, [facility] [place] [facility] [address] [id number] [place] [address] Jun, [facility] [place] [facility] [address] [id number] [place] [address] Jun, [facility] [place] [facility] [address] [id number] [place] [address] May, [facility] [place] [facility] [address] [id number] [place] [address] May, [facility] [place] [facility] [address] [id number] [place] [address] 14 May, 2013 [facility] [place] [facility] [address] [id number] [place] [address] 14 May, 2013 [facility] [place] [facility] [address] [id number] [place] [address] May, [facility] [place] [facility] [address] [id number] [place] [address] May, [facility] [place] [facility] [address] [id number] [place] [address] Apr, [facility] [place] [facility] [address] [id number] [place] [address] Apr, [facility] [place] [facility] [address] [id number] [place] [address] 15 Feb, 2013 [facility] [place] [facility] [address] [id number] [place] [address] 15 Feb, 2013 [facility] [place] [facility] [address] [facility] [id number] [place] [address] 15 Feb, 2013 [facility] [place] [facility] [address] [id number] [place] [address] 15 Feb, 2013 [facility] [place] [facility] [address] [id number] [place] [address] 13 Feb, 2013 [facility] [place] [facility] [address] [id number] [place] [address] 13 Feb, 2013 [facility] [place] [facility] [address] [id number] [place] [address] 11 Feb, 2013 [facility] [place] [facility] [address] [id number] [address] 11 Feb, 2013 [facility] [place] [facility] [address] [id number] [place] [address] 08 Feb, 2013 [facility] [place] [facility] [address] [id number] [place] [address] Jan, 2012 [facility] [place] [facility] [address] [id number] [place] [address] Jan, 2012 [facility] [place] [facility] [address] [id number] [place] [address] Jan, [facility] [place] [facility] [address] [id number] [place] [address] Jan, [facility] [place] [facility] [address] [id number] [place] [address] Jan, [facility] [place] [facility] [address] [id number] [place] [address] Jan, [facility] [place] [facility] [address] [id number] [place] [address] 17 Dec, 2012 [facility] [place] [facility] [address] [id number] [place] [address] 12 Dec, 2012 [facility] [place] [facility] [address] [id number] [place] [address] 05 Dec, 2012 [facility] [place] [facility] [address] [id number] [place] [address] 05 Dec, 2012 [facility] [place] [facility] [address] [id number] [place] [address] Oct, [facility] [place] [facility] [address] [id number] [place] [address] Oct, [facility] [place] [facility] [address] [id number] [place] [address] Oct, [facility] [place] [facility] [address] [id number] [place] [address] Oct, 2012 [facility] [place] [facility] [address] [id number] [place] [address] Oct, [facility] [address] [id number] [place] [address] Sep, [facility] [address] [id number] [place] [address] August, [facility] [address] [id number] [place] [address] August, [facility] [address] [id number] [place] [address] August, [facility] [address] [id number] [place] [address] August, [facility] [address] [id number] [place] [address] August, [facility] [address] [id number] [place] [address] August, [facility] [address] [id number] [place] [address] August, [facility] [address] [id number] [place] [address] August, [facility] [address] [id number] [place] [address] August, [facility] [address] [id number] [place] [address] August, [facility] [place] [facility] [address] [id number] [place] [address] August, [facility] [place] [facility] [address] [id number] [place] [address] August, [facility] [place] [facility] [address] [id number] [place] [address] Jun, [facility] [place] [facility] [address] [id number] [place] [address] Jun, [facility] [address] [id number] [place] [address] Jun, [facility] [address] [id number] [place] [address] May, [facility] [address] [id number] [place] [address] May, [facility] [address] [id number] [place] [address] Mar, [facility] [address] [id number] [place] [address] Mar, [facility] [address] [id number] [place] [address] Feb, [facility] [address] [id number] [place] [address] Feb, [facility] [address] [id number] [place] [address] Feb, [facility] [address] [id number] [place] [address] Feb, [facility] [address] [id number] [place] [address] Dec, [facility] [address] [id number] [place] [address] August, [facility] [address] [id number] [place] [address] Jul, [facility] [address] [id number] [place] [address] 05 Jul, 2011 [facility] [address] [id number] [place] [address] 13 Jun, 2011 [facility] [address] [id number] [place] [address] 13 Jun, 2011 [facility] [address] [id number] [place] [address] Jun, [facility] [address] [id number] [place] [address] Jun, [facility] [place] [facility] [address] [id number] [place] [address] Jun, [facility] [address] [id number] [place] [address] May, [facility] [place] [facility] [address] [id number] [place] [address] May, [facility] [address] [id number] [place] [address] May, [facility] [address] [id number] [place] [address] May, [facility] [address] [facility] [id number] [place] [address] Apr, [facility] [place] [facility] [address] [id number] [place] [address] Apr, [facility] [address] [facility] [id number] [place] [address] Apr, [facility] [address] [facility] [id number] [place] [address] Mar, [facility] [place] [facility] [address] [facility] [id number] [address] Mar, [facility] [place] [facility] [address] [id number], [place] [address] Mar, [facility] [place] [facility] [address] [id number] [place] [address] Mar, [facility] [place] [facility] [address] [id number], [place] [address] May, [facility] [place] [facility] [address] [id number] [place] [address] Feb, [facility] [place] [facility] [address] [facility] [id number] [place] [address] Feb, [facility] [address] [facility] [id number] [place] [address] Jan, [facility] [address] [facility] [id number] [place] [address] Jan, IMMUNIZATIONS No Known Immunizations SOCIAL HISTORY Never Assessed REASON FOR VISIT Controlled Med Refill 04/08/17 PLAN OF CARE VITAL SIGNS MEDICATIONS Medication Instructions Dosage Frequency Start Date End Date Duration Status Oxycodone HCl 10 MG Orally Once a day 1 tablet 24h 11 Mar, 2017 28 days Active Xanax 1 MG [...]
--- OUTSIDE RECORDS SUMMARY | 2018-09-19 01:47 | XMS REPORT ---
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
--- OUTSIDE RECORDS SUMMARY | 2018-09-19 01:47 | XMS REPORT ---
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 Name Role Phone SAMMY ARZATE Unavailable PROBLEMS Type Condition ICD9-CM Code [id number] Code Onset Dates Condition Status SNOMED Code Problem Diaphragmatic hernia without mention of obstruction or gangrene 553.3 Active 30766856 Problem Other chronic nonalcoholic liver disease 571.8 Active 06547545 Problem Cervicalgia 723.1 Active 44128305 Problem Family history of other malignant neoplasm V16.49 Active 744268529 Problem Umbilical hernia without mention of obstruction or gangrene 553.1 Active 746054071 Problem Family history of diabetes mellitus V18.0 Active 427359075 Problem Other abnormal glucose 790.29 Active 550126448 Problem Abdominal pain, generalized 789.07 Active 413187445 Problem Unspecified otalgia 388.70 Active 38826804 Problem Unspecified neuralgia, neuritis, and radiculitis 729.2 Active 59868670 Problem 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 84076529 Problem Other postprocedural status V45.89 Active 08227061 Problem Umbilical hernia with obstruction 552.1 Active 970505783 Problem Anxiety state, unspecified 300.00 Active 939739194 Problem Esophageal reflux 530.81 Active 599202586 Problem Chest pain, unspecified 786.50 Active 79482849 Problem Other chronic pain G89.29 Active 09268515 Problem Osteoarthritis, unspecified osteoarthritis type, unspecified site M19.90 Active 834052281 Problem Essential hypertension, benign 401.1 Active 0216377 Problem Panic disorder without agoraphobia 300.01 Active 91982837 Problem Major depressive disorder, recurrent episode, severe, without mention of psychotic behavior 296.33 Active 04794877 Problem Other abnormal blood chemistry 790.6 Active 838847175 Problem Depressive disorder, not elsewhere classified 311 Active 73390858 Problem 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 Active 163383092 Problem 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 Active 114338426 Problem Abnormal involuntary movements 781.0 Active 057818722 Problem Major depressive disorder, recurrent episode, moderate 296.32 Active 25409139 Problem Family history of other cardiovascular diseases V17.49 Active 416840810 Problem Abdominal pain, epigastric 789.06 Active 62082276 Problem Family history of malignant neoplasm of gastrointestinal tract V16.0 Active 507828153 Problem Lumbago 724.2 Active 345207274 Problem Abdominal pain, right lower quadrant 789.03 Active 017338984 Problem Memory loss 780.93 Active 33726235 Problem Other malaise and fatigue 780.79 Active 919586500 ALLERGIES Unknown Allergies SOCIAL HISTORY No smoking Hx information available PLAN OF CARE VITAL SIGNS MEDICATIONS Medication Instructions Dosage Frequency Start Date End Date Duration Status Xanax 1 MG Orally Twice a day 1 tablet 12h 25 Jun, 2014 28 days Active RESULTS No Results PROCEDURES No Known procedures IMMUNIZATIONS No Known Immunizations
--- OUTSIDE RECORDS SUMMARY | 2018-09-19 01:48 | XMS REPORT ---
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 Name Role Phone SAMMY ARZATE Unavailable PROBLEMS Type Condition ICD9-CM Code [id number] Code Onset Dates Condition Status SNOMED Code Problem Gastroesophageal reflux disease without esophagitis K21.9 Active 289507210 Problem Other chronic pain G89.29 Active 72000683 Problem 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 Active 404038226 Problem Osteoarthritis, unspecified osteoarthritis type, unspecified site M19.90 Active 182778160 Problem 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 Active 793564994 ALLERGIES Unknown Allergies SOCIAL HISTORY No smoking Hx information available PLAN OF CARE VITAL SIGNS MEDICATIONS Medication Instructions Dosage Frequency Start Date End Date Duration Status Oxycodone HCl 10 mg Orally Once a day 1 tablet 24h 07 May, 2016 28 days Active Xanax 1 MG Orally Twice a day 1 tablet 12h Jun, 28 days Active RESULTS No Results PROCEDURES No Known procedures IMMUNIZATIONS No Known Immunizations
--- OUTSIDE RECORDS SUMMARY | 2018-09-19 01:48 | XMS REPORT ---
Author Author SAMMY ARZATE [facility] [employer] Address Unknown Phone Unavailable Care Team Providers Care Outside Sales Inspector Name Role Phone SAMMY ARZATE CP [...] Start Date End Date Status Dosage Xanax [facility] [address]-72 1 MG July 20, 2014 1 tablet by Oral route 2 times per day Results No Known Results Summary Purpose eClinicalWorks Submission
--- OUTSIDE RECORDS SUMMARY | 2018-09-19 01:48 | XMS REPORT ---
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 Active 101570028 Problem 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 Active 289204390 Problem Other chronic pain G89.29 Active 15039886 Problem Osteoarthritis, unspecified osteoarthritis type, unspecified site M19.90 Active 208934755 ALLERGIES No Information ENCOUNTERS Encounter Location Date Diagnosis [place] [id number] [place] [address] Jun, Osteoarthritis, unspecified osteoarthritis type, unspecified site M19.90 [place] [address], [place] [address] Jun, [place] [id number] [place] [address] Jun, Osteoarthritis, unspecified osteoarthritis type, unspecified site M19.90 [place] [address], [place] [address] May, [place] [id number] [place] [address] May, Benign prostatic hyperplasia, unspecified whether lower urinary tract symptoms present N40.0 [place] [address] [place] [id number] [place] [address] May, Osteoarthritis, unspecified osteoarthritis type, unspecified site M19.90 [place] [id number] [place] [address] May, [place] [address] [place] [id number] [place] [address] Apr, Other chronic pain G89.29 ; Family history of diabetes mellitus Z83.3 ; Forgetfulness R68.89 ; History of multiple concussions Z87.820 ; Gastroesophageal reflux disease without esophagitis K21.9 and Screening, lipid Z13.220 [place] [id number] [place] [address] Apr, Other chronic pain G89.29 ; Forgetfulness R68.89 ; History of multiple concussions Z87.820 ; Gastroesophageal reflux disease without esophagitis K21.9 ; Screening, lipid Z13.220 and Family history of diabetes mellitus Z83.3 [place] [address] [place] [id number] [place] [address] Apr, Osteoarthritis, unspecified osteoarthritis type, unspecified site M19.90 [place] [address] [place] [id number] [place] [address] Apr, Osteoarthritis, unspecified osteoarthritis type, unspecified site M19.90 [place] [address], [place] [address] Apr, [place] [address] [place] [id number] [place] [address] Mar, Osteoarthritis, unspecified osteoarthritis type, unspecified site M19.90 [place] [id number] [place] [address] Feb, Osteoarthritis, unspecified osteoarthritis type, unspecified site M19.90 [place] [id number] [place] [address] Jan, Osteoarthritis, unspecified osteoarthritis type, unspecified site M19.90 [place] [address] [place] [id number] [address] Dec, Osteoarthritis, unspecified osteoarthritis type, unspecified site M19.90 [facility] [address] [place] [id number] [place] [address] Dec, [facility] [address] [place] [id number] [place] [address] Nov, Encounter for screening for lipid disorder Z13.220 [place] [address] [place] [id number] [place] [address] Nov, Osteoarthritis, unspecified osteoarthritis type, unspecified site M19.90 ; Encounter for screening for lipid disorder Z13.220 and Other chronic pain G89.29 [place] [address] [place] [id number] [place] [address] Nov, Osteoarthritis, unspecified osteoarthritis type, unspecified site M19.90 [place] [address] [place] [id number] [place] [address] Nov, [place] [address] [place] [id number] [place] [address] Nov, [place] [address] [place] [id number] [place] [address] Oct, Osteoarthritis, unspecified osteoarthritis type, unspecified site M19.90 [place] [id number] [place] [address] Oct, Gastroesophageal reflux disease without esophagitis K21.9 [facility] [id number] [place] [address] Sep, Osteoarthritis, unspecified osteoarthritis type, unspecified site M19.90 [place] [address] [place] [id number] [place] [address] August, Osteoarthritis, unspecified osteoarthritis type, unspecified site M19.90 [place] [address], [place] [address] August, Osteoarthritis, unspecified osteoarthritis type, unspecified site M19.90 [facility] [address] [place] [id number] [address] Jul, Osteoarthritis, unspecified osteoarthritis type, unspecified site M19.90 and Gastroesophageal reflux disease without esophagitis K21.9 [facility] [address] [place] [id number] [place] [address] Jul, Osteoarthritis, unspecified osteoarthritis type, unspecified site M19.90 [facility] [address] [place] [id number] [place] [address] Jun, Ventral hernia without obstruction or gangrene K43.9 [place] [address] [place] [id number] [place] [address] Jun, Osteoarthritis, unspecified osteoarthritis type, unspecified site M19.90 [place] [address] [place] [id number] [place] [address] May, [facility] [address] [place] [id number] [place] [address] May, Osteoarthritis, unspecified osteoarthritis type, unspecified site M19.90 [facility] [address] [place] [id number] [place] [address] Apr, Osteoarthritis, unspecified osteoarthritis type, unspecified site M19.90 [facility] [address] [place] [id number] [address] Mar, [facility] [address] [place] [id number] [place] [address] Mar, Osteoarthritis, unspecified osteoarthritis type, unspecified site M19.90 and Lumbago with sciatica, left side M54.42 [facility] [address] [place] [id number] [place] [address] Feb, [facility] [address] [place] [id number] [address] Feb, [facility] [address] [place] [address] [id number] [address] Feb, Osteoarthritis, unspecified osteoarthritis type, unspecified site M19.90 [facility] [address] [place] [id number] [place] [address] Feb, [facility] [address] [place] [id number] [place] [address] Feb, Low back pain M54.5 and Other chronic pain G89.29 [facility] [address] [place] [id number] [place] [address] Feb, [facility] [address] [place] [id number] [place] [address] Jan, [facility] [address] [place] [id number] [place] [address] Jan, [facility] [address] [place] [id number] [place] [address] 24 Dec, 2015 Lumbago with sciatica, left side M54.42 [facility] [address] [place] [id number] [place] [address] 15 Dec, 2015 Irritable bowel syndrome with both constipation and diarrhea K58.0 ; Screening, lipid Z13.220 ; Nocturia R35.1 ; Family history of diabetes mellitus Z83.3 and Dysuria R30.0 [place] [id number] [place] [address] 14 Dec, 2015 Irritable bowel syndrome with both constipation and diarrhea K58.0 ; Nocturia R35.1 ; Family history of diabetes mellitus Z83.3 ; Dysuria R30.0 and Screening, lipid Z13.220 [facility] [address] [place] [id number] [place] [address] 12 Dec, 2015 [facility] [address] [place] [id number] [place] [address] 07 Dec, 2015 [facility] [address] [place] [id number] [place] [address] Dec, Pain with swallowing R13.10 [facility] [address] [place] [id number] [place] [address] Nov, [facility] [address] [place] [id number] [place] [address] Nov, [facility] [address] [place] [id number] [place] [address] Oct, [facility] [address] [place] [id number] [place] [address] Sep, [facility] [address] [place] [id number] [place] [address] Sep, Osteoarthritis, unspecified osteoarthritis type, unspecified site M19.90 [facility] [address] [place] [id number] [place] [address] 07 Sep, 2015 Back pain M54.9 [facility] [address] [place] [id number] [place] [address] Sep, Lumbago with sciatica, right side M54.41 and Bilateral impacted cerumen H61.23 [facility] [address] [place] [id number] [place] [address] Sep, [facility] [address] [place] [id number] [place] [address] August, Bronchitis J40 [facility] [address] [place] [id number] [place] [address] August, [facility] [address] [place] [id number] [place] [address] August, [facility] [address] [place] [id number] [place] [address] August, [facility] [address] [place] [id number] [place] [address] Jul, [facility] [address] [place] [id number] [place] [address] Jul, Back pain M54.9 [facility] [address] [place] [id number] [place] [address] Jun, Degenerative disc disease at L5-S1 level M51.36 and Bronchitis J40 [facility] [address] [place] [id number] [place] [address] Jun, [facility] [address] [address] May, [facility] [address] [place] [id number] [place] [address] Apr, [facility] [address] [address] Mar, [facility] [address] [place] [id number] [place] [address] Mar, [facility] [address] [place] [id number] [place] [address] Feb, [facility] [address] [place] [id number] [place] [address] Jan, [facility] [address] [place] [id number] [place] [address] Dec, [facility] [address] [place] [id number] [place] [address] Nov, [facility] [address] [place] [id number] [place] [address] Oct, [facility] [address] [place] [id number] [place] [address] Oct, Right shoulder pain 719.41 [facility] [address] [address] Sep, [facility] [address] [place] [id number] [place] [address] Sep, Vertigo 780.4 and Elbow fracture, right 812.40 [facility] [place] [facility] [address] [id number] [place] [address] 08 Sep, 2014 [facility] [place] [facility] [address] [id number] [place] [address] August, [facility] [place] [facility] [address] [id number] [place] [address] Jul, [facility] [place] [facility] [address] [id number] [place] [address] Jul, [facility] [place] [facility] [address] [id number] [place] [address] Jun, [facility] [place] [facility] [address] [id number] [place] [address] Jun, [facility] [place] [facility] [address] [id number] [place] [address] Jun, [facility] [place] [facility] [address] [id number] [place] [address] Jun, [facility] [place] [facility] [address] [id number] [place] [address] Jun, [facility] [place] [facility] [address] [id number] [place] [address] Jun, [facility] [place] [facility] [address] [id number] [place] [address] May, [facility] [place] [facility] [address] [id number], [place] [address] May, [facility] [place] [facility] [address] [id number] [place] [address] May, [facility] [place] [facility] [address] [id number] [place] [address] May, [facility] [place] [facility] [address] [id number] [place] [address] May, [facility] [place] [facility] [address] [id number] [place] [address] May, [facility] [place] [facility] [address] [id number] [place] [address] Apr, [facility] [place] [facility] [address] [id number] [place] [address] Apr, [facility] [place] [facility] [address] [id number] [place] [address] Apr, [facility] [place] [facility] [address] [id number] [place] [address] Apr, [facility] [place] [facility] [address] [id number] [place] [address] Apr, [facility] [place] [facility] [address] [id number] [place] [address] Apr, [facility] [place] [facility] [address] [id number] [place] [address] Apr, [facility] [place] [facility] [address] [id number] [place] [address] Mar, [facility] [place] [facility] [address] [id number] [place] [address] Mar, [facility] [place] [facility] [address] [facility] [id number] [place] [address] Mar, [facility] [place] [facility] [address] [id number] [place] [address] 31 Mar, 2014 [facility] [place] [facility] [address] [id number] [place] [address] 31 Mar, 2014 [facility] [place] [facility] [address] [id number] [place] [address] Mar, [facility] [place] [facility] [address] [id number] [place] [address] 30 Mar, 2014 [facility] [place] [facility] [address] [id number] [place] [address] 30 Mar, 2014 [facility] [place] [facility] [address] [id number] [place] [address] Mar, [facility] [place] [facility] [address] [id number] [place] [address] Mar, [facility] [place] [facility] [address] [id number] [place] [address] Mar, [facility] [place] [facility] [address] [id number] [place] [address] Mar, [facility] [place] [facility] [address] [id number] [place] [address] Mar, [facility] [place] [facility] [address] [id number] [place] [address] Mar, [facility] [place] [facility] [address] [id number] [place] [address] Mar, [facility] [place] [facility] [address] [id number] [place] [address] Feb, [facility] [place] [facility] [address] [id number] [place] [address] Feb, [facility] [place] [facility] [address] [id number] [place] [address] Feb, [facility] [place] [facility] [address] [id number] [place] [address] Feb, [facility] [place] [facility] [address] [id number] [place] [address] Feb, [facility] [place] [facility] [address] [id number] [place] [address] Feb, [facility] [place] [facility] [address] [id number] [place] [address] Jan, [facility] [place] [facility] [address] [id number] [place] [address] Jan, [facility] [place] [facility] [address] [id number], [place] [address] 08 Jan, 2014 [facility] [place] [facility] [address] [id number] [place] [address] 08 Jan, 2014 [facility] [place] [facility] [address] [id number] [place] [address] Jan, [facility] [place] [facility] [address] [id number] [place] [address] Jan, [facility] [place] [facility] [address] [id number] [place] [address] 29 Dec, 2013 [facility] [place] [facility] [address] [id number] [place] [address] 29 Dec, 2013 [facility] [place] [facility] [address] [id number] [place] [address] 26 Dec, 2013 [facility] [place] [facility] [address] [id number] [place] [address] Dec, 2013 [facility] [place] [facility] [address] [id number] [place] [address] Dec, 2013 [facility] [place] [facility] [address] [id number] [place] [address] 08 Dec, 2013 [facility] [place] [facility] [address] [id number] [place] [address] 08 Dec, 2013 [facility] [place] [facility] [address] [id number], [place] [address] 08 Dec, 2013 [facility] [place] [facility] [address] [id number], [place] [address] 08 Dec, 2013 [facility] [place] [facility] [address] [id number] [place] [address] Dec, 2013 [facility] [place] [facility] [address] [id number] [place] [address] Dec, 2013 [facility] [place] [facility] [address] [id number] [place] [address] Nov, [facility] [place] [facility] [address] [id number] [place] [address] Nov, [facility] [place] [facility] [address] [id number] [place] [address] Nov, [facility] [place] [facility] [address] [id number] [place] [address] Nov, [facility] [place] [facility] [address] [id number] [place] [address] Nov, [facility] [place] [facility] [address] [id number] [place] [address] Nov, [facility] [place] [facility] [address] [id number] [place] [address] Nov, [facility] [place] [facility] [address] [id number] [place] [address] Nov, [facility] [place] [facility] [address] [id number] [place] [address] Nov, [facility] [place] [facility] [address] [id number] [place] [address] Nov, [facility] [place] [facility] [address] [id number] [place] [address] Oct, [facility] [place] [facility] [address] [id number] [place] [address] Oct, [facility] [place] [facility] [address] [id number] [place] [address] Oct, [facility] [place] [facility] [address] [id number] [place] [address] Oct, [facility] [place] [facility] [address] [id number] [place] [address] Oct, [facility] [place] [facility] [address] [id number] [place] [address] Oct, [facility] [place] [facility] [address] [id number] [place] [address] Oct, [facility] [place] [facility] [address] [id number] [place] [address] Oct, [facility] [place] [facility] [address] [id number] [place] [address] Oct, [facility] [place] [facility] [address] [id number] [place] [address] Oct, [facility] [place] [facility] [address] [id number] [place] [address] Oct, [facility] [place] [facility] [address] [id number] [place] [address] Oct, [facility] [place] [facility] [address] [id number] [place] [address] Oct, [facility] [place] [facility] [address] [id number] [place] [address] Sep, [facility] [place] [facility] [address] [id number] [place] [address] Sep, [facility] [place] [facility] [address] [id number] [place] [address] Sep, [facility] [place] [facility] [address] [id number] [place] [address] Sep, [facility] [place] [facility] [address] [id number] [place] [address] August, [facility] [place] [facility] [address] [id number] [place] [address] August, [facility] [place] [facility] [address] [id number] [place] [address] August, [facility] [place] [facility] [address] [id number] [place] [address] August, [facility] [place] [facility] [address] [id number] [place] [address] August, [facility] [place] [facility] [address] [id number] [place] [address] August, [facility] [place] [facility] [address] [id number] [place] [address] August, [facility] [place] [facility] [address] [id number] [place] [address] August, [facility] [place] [facility] [address] [id number] [place] [address] Jul, [facility] [place] [facility] [address] [id number] [place] [address] Jul, [facility] [place] [facility] [address] [id number] [place] [address] Jun, [facility] [place] [facility] [address] [id number] [place] [address] Jun, [facility] [place] [facility] [address] [facility] [id number] [place] [address] Jun, [facility] [place] [facility] [address] [id number] [place] [address] Jun, [facility] [place] [facility] [address] [id number] [place] [address] Jun, [facility] [place] [facility] [address] [facility] [id number] [place] [address] Jun, [facility] [place] [facility] [address] [id number] [place] [address] May, [facility] [place] [facility] [address] [id number] [place] [address] May, [facility] [place] [facility] [address] [id number] [place] [address] May, [facility] [place] [facility] [address] [id number] [place] [address] May, [facility] [place] [facility] [address] [id number] [place] [address] May, [facility] [place] [facility] [address] [id number] [place] [address] 07 May, 2013 [facility] [place] [facility] [address] [id number] [place] [address] Apr, [facility] [place] [facility] [address] [id number] [place] [address] Apr, [facility] [place] [facility] [address] [id number] [place] [address] 15 Feb, 2013 [facility] [place] [facility] [address] [id number] [place] [address] 15 Feb, 2013 [facility] [place] [facility] [address] [id number] [place] [address] Feb, [facility] [place] [facility] [address] [id number] [place] [address] 15 Feb, 2013 [facility] [place] [facility] [address] [id number] [place] [address] Feb, [facility] [place] [facility] [address] [id number] [place] [address] Feb, [facility] [place] [facility] [address] [id number], [place] [address] Feb, [facility] [place] [facility] [address] [id number] [place] [address] Feb, [facility] [place] [facility] [address] [id number], [place] [address] 08 Feb, 2013 [facility] [place] [facility] [address] [id number], [place] [address] Jan, [facility] [place] [facility] [address] [id number] [place] [address] 27 Jan, 2013 [facility] [place] [facility] [address] [id number], [place] [address] 10 Jan, 2013 [facility] [place] [facility] [address] [id number], [place] [address] Jan, [facility] [place] [facility] [address] [id number] [place] [address] Jan, [facility] [place] [facility] [address] [id number] [place] [address] Jan, [facility] [place] [facility] [address] [id number] [place] [address] Dec, [facility] [place] [facility] [address] [id number] [place] [address] Dec, [facility] [place] [facility] [address] [id number] [place] [address] 05 Dec, 2012 [facility] [place] [facility] [address] [id number] [place] [address] Dec, [facility] [place] [facility] [address] [id number] [place] [address] Oct, [facility] [place] [facility] [address] [id number] [place] [address] Oct, [facility] [place] [facility] [address] [id number] [place] [address] Oct, [facility] [place] [facility] [address] [id number] [place] [address] Oct, [facility] [place] [facility] [address] [id number] [place] [address] Oct, [facility] [place] [facility] [address] [id number] [place] [address] Sep, [facility] [place] [facility] [address] [id number] [place] [address] August, [facility] [place] [facility] [address] [id number] [place] [address] August, [facility] [place] [facility] [address] [id number] [place] [address] August, [facility] [place] [facility] [address] [id number] [place] [address] August, [facility] [address] [id number] [place] [address] August, [facility] [address] [id number] [place] [address] August, [facility] [address] [id number] [place] [address] August, [facility] [address] [id number] [place] [address] August, [facility] [address] [id number] [place] [address] August, [facility] [address] [id number] [place] [address] August, [facility] [address] [id number] [place] [address] August, [facility] [place] [address] [id number] [place] [address] August, [facility] [address] [id number] [place] [address] Jun, [facility] [place] [address] [id number] [place] [address] Jun, [facility] [address] [id number] [place] [address] Jun, [facility] [address] [id number] [place] [address] May, [facility] [address] [id number] [place] [address] May, [facility] [address] [id number] [place] [address] Mar, [facility] [address] [id number] [place] [address] Mar, [facility] [place] [facility] [address] [id number] [place] [address] Feb, [facility] [place] [facility] [address] [id number] [place] [address] Feb, [facility] [place] [facility] [address] [id number] [place] [address] Feb, [facility] [place] [facility] [address] [id number] [place] [address] Feb, [facility] [place] [facility] [address] [id number] [place] [address] Dec, [facility] [place] [facility] [address] [id number] [place] [address] August, [facility] [place] [facility] [address] [facility] [id number] [place] [address] Jul, [facility] [place] [facility] [address] [id number] [place] [address] 05 Jul, 2011 [facility] [place] [facility] [address] [id number] [place] [address] Jun, [facility] [place] [facility] [address] [id number], [place] [address] Jun, [facility] [place] [facility] [address] [id number], [place] [address] Jun, [facility] [place] [facility] [address] [id number], [place] [address] Jun, [facility] [place] [facility] [address] [id number] [place] [address] Jun, [facility] [place] [facility] [address] [id number], [place] [address] May, [facility] [place] [facility] [address] [id number] [place] [address] May, [facility] [place] [facility] [id number], [place] [address] 14 May, 2011 [facility] [id number] [place] [address] May, [facility] [id number], [place] [address] Apr, [facility] [id number] [place] [address] Apr, [facility] [id number] [place] [address] Apr, [facility] [id number] [place] [address] Mar, [facility] [id number] [place] [address] Mar, [facility] [id number] [place] [address] Mar, [facility] [id number] [place] [address] Mar, [facility] [id number] [place] [address] May, [facility] [id number], [place] [address] Feb, [facility] [id number] [place] [address] Feb, [facility] [id number], [place] [address] Jan, [facility] [id number], [place] [address] Jan, IMMUNIZATIONS No Known Immunizations SOCIAL HISTORY Never Assessed REASON FOR VISIT Medication refill request PLAN OF CARE VITAL SIGNS MEDICATIONS Medication Instructions Dosage Frequency Start Date End Date Duration Status Rapaflo 8 MG Orally Once a day 1 capsule with a meal 24h Active RESULTS No Results PROCEDURES No Known [...]
--- OUTSIDE RECORDS SUMMARY | 2018-09-19 01:51 | XMS REPORT | Continuity of Care Document ---
Author Organization Unknown Address Unknown Allergies Active Description Code Type Severity Reaction Onset Reported/Identified Relationship to Patient Clinical Status Yes Bentyl 20 mg tablet Drug Allergy N/A N/A 12/31/2012 Yes ranitidine HCl 150 mg tablet Drug Allergy N/A N/A 12/31/2012 Yes mirtazapine [id number] Drug Allergy Mild N/A 10/11/2013 Yes fluoxetine [id number] Drug Allergy Moderate N/A 08/14/2014 Medications There is no data. Problems Date Dx Coded Attending Type Code Diagnosis Diagnosed By 03/27/1523 SAMMY ARZATE ENAMEL APPLIER Ot M54.41 LUMBAGO WITH SCIATICA, RIGHT SIDE 02/10/2008 SAMMY ARZATE APRN S 706.2 SEBACEOUS CYST 02/10/2008 SAMMY ARZATE APRN S V70.0 GENERAL MEDICAL EXAM, ROUTINE, AT HEALTH CARE FACILITY 02/10/2008 SAMMY ARZATE APRN S 706.2 SEBACEOUS CYST 02/10/2008 SAMMY ARZATE APRN S V70.0 GENERAL MEDICAL EXAM, ROUTINE, AT HEALTH CARE FACILITY 02/10/2008 ADAMS ARZATE APRNA S 706.2 SEBACEOUS CYST 02/10/2008 SAMMY ARZATE APRN S V70.0 GENERAL MEDICAL EXAM, ROUTINE, AT HEALTH CARE FACILITY 02/10/2008 SAMMY ARZATE APRN S 706.2 SEBACEOUS CYST 02/10/2008 SAMMY ARZATE APRN S V70.0 GENERAL MEDICAL EXAM, ROUTINE, AT HEALTH CARE FACILITY 02/10/2008 706.2 SEBACEOUS CYST 02/10/2008 V70.0 GENERAL MEDICAL EXAM, ROUTINE, AT HEALTH CARE FACILITY 02/10/2008 706.2 SEBACEOUS CYST 02/10/2008 V70.0 GENERAL MEDICAL EXAM, ROUTINE, AT HEALTH CARE FACILITY 02/10/2008 706.2 SEBACEOUS CYST 02/10/2008 V70.0 GENERAL MEDICAL EXAM, ROUTINE, AT HEALTH CARE FACILITY 02/10/2008 706.2 SEBACEOUS CYST 02/10/2008 V70.0 GENERAL MEDICAL EXAM, ROUTINE, AT HEALTH CARE FACILITY 02/10/2008 706.2 SEBACEOUS CYST 02/10/2008 V70.0 GENERAL MEDICAL EXAM, ROUTINE, AT HEALTH CARE FACILITY 02/10/2008 CARITO DIOP, SAMMY S 706.2 SEBACEOUS CYST 02/10/2008 CARITO DIOP, SAMMY S V70.0 GENERAL MEDICAL EXAM, ROUTINE, AT HEALTH CARE FACILITY 02/10/2008 WHITNEY CHAPMAN MD 706.2 SEBACEOUS CYST 02/10/2008 ARI BURDICK, WHITNEY V70.0 GENERAL MEDICAL EXAM, ROUTINE, AT HEALTH CARE FACILITY 02/10/2008 CARITO DIOP SAMMY S 706.2 SEBACEOUS CYST 02/10/2008 CARITO DIOP, SAMMY S V70.0 GENERAL MEDICAL EXAM, ROUTINE, AT HEALTH CARE FACILITY 02/10/2008 CARITO DIOP SAMMY S 706.2 SEBACEOUS CYST 02/10/2008 CARITO DIOP, SAMMY S V70.0 GENERAL MEDICAL EXAM, ROUTINE, AT HEALTH CARE FACILITY 02/10/2008 MICHAEL SHARMA LCPC B 706.2 SEBACEOUS CYST 02/10/2008 EDITH MAHONEY, MICHAEL B V70.0 GENERAL MEDICAL EXAM, ROUTINE, AT HEALTH CARE FACILITY 02/10/2008 PAULETTE JUARES, LASHONDA A 706.2 SEBACEOUS CYST 02/10/2008 PAULETTE JUARES, LASHONDA A V70.0 GENERAL MEDICAL EXAM, ROUTINE, AT HEALTH CARE FACILITY 02/10/2008 PAULETTE JUARES, LASHONDA A 706.2 SEBACEOUS CYST 02/10/2008 PAULETTE JUARES, LASHONDA Chiu V70.0 GENERAL MEDICAL EXAM, ROUTINE, AT HEALTH CARE FACILITY 02/10/2008 WHITNEY CHAPMAN MD 706.2 SEBACEOUS CYST 02/10/2008 WHITNEY CHAPMAN MD V70.0 GENERAL MEDICAL EXAM, ROUTINE, AT HEALTH CARE FACILITY 02/10/2008 SHRAVAN ARZATE APRNNDA S 706.2 SEBACEOUS CYST 02/10/2008 CARITO GANG MOWER OPERATOR, SAMMY S V70.0 GENERAL MEDICAL EXAM, ROUTINE, AT HEALTH CARE FACILITY 02/10/2008 WHITNEY CHAPMAN MD 706.2 SEBACEOUS CYST 02/10/2008 ARI BURDICK, WHITNEY V70.0 GENERAL MEDICAL EXAM, ROUTINE, AT HEALTH CARE FACILITY 02/10/2008 CARITO DIOP, SAMMY S 706.2 SEBACEOUS CYST 02/10/2008 CARITO YANN, SAMMY S V70.0 GENERAL MEDICAL EXAM, ROUTINE, AT HEALTH CARE FACILITY 02/10/2008 CARITO YANN, SAMMY S 706.2 SEBACEOUS CYST 02/10/2008 CARITO YANN, SAMMY S V70.0 GENERAL MEDICAL EXAM, ROUTINE, AT HEALTH CARE FACILITY 02/10/2008 PAULETTE PHD, LASHONDA A 706.2 SEBACEOUS CYST 02/10/2008 PAULETTE PHD, LASHONDA A V70.0 GENERAL MEDICAL EXAM, ROUTINE, AT HEALTH CARE FACILITY 02/10/2008 PAULETTE PHD, LASHONDA A 706.2 SEBACEOUS CYST 02/10/2008 PAULETTE PHD, LASHONDA A V70.0 GENERAL MEDICAL EXAM, ROUTINE, AT HEALTH CARE FACILITY 02/10/2008 PAULETTE PHD, LASHONDA A 706.2 SEBACEOUS CYST 02/10/2008 PAULETTE PHD, LASHONDA A V70.0 GENERAL MEDICAL EXAM, ROUTINE, AT HEALTH CARE FACILITY 02/10/2008 CARITO DIOP, SAMMY S 706.2 SEBACEOUS CYST 02/10/2008 CARITO DIOP, SAMMY S V70.0 GENERAL MEDICAL EXAM, ROUTINE, AT HEALTH CARE FACILITY 02/10/2008 PAULETTE JUARES, LASHONDA A 706.2 SEBACEOUS CYST 02/10/2008 PAULETTE PHD, LASHONDA A V70.0 GENERAL MEDICAL EXAM, ROUTINE, AT HEALTH CARE FACILITY 03/18/2008 CARITO DIOP, SAMMY S V58.69 MEDICATION HIGH RISK 03/18/2008 CARITO YANN, SAMMY S V58.69 MEDICATION HIGH RISK 03/18/2008 CARITO YANN, SAMMY S V58.69 MEDICATION HIGH RISK 03/18/2008 CARITO YANN, SAMMY S V58.69 MEDICATION HIGH RISK 03/18/2008 V58.69 MEDICATION HIGH RISK 03/18/2008 V58.69 MEDICATION HIGH RISK 03/18/2008 V58.69 MEDICATION HIGH RISK 03/18/2008 V58.69 MEDICATION HIGH RISK 03/18/2008 V58.69 MEDICATION HIGH RISK 03/18/2008 CARITO DIOP, SAMMY S V58.69 MEDICATION HIGH RISK 03/18/2008 ARI BURDICK, WHITNEY V58.69 MEDICATION HIGH RISK 03/18/2008 CARITO DIOP, SAMMY S V58.69 MEDICATION HIGH RISK 03/18/2008 CARITO DIOP, SAMMY S V58.69 MEDICATION HIGH RISK 03/18/[address] [facility], MICHAEL B V58.69 MEDICATION HIGH RISK 03/18/2008 PAULETTE PHD, LASHONDA A V58.69 MEDICATION HIGH RISK 03/18/2008 PAULETTE PHD, LASHONDA A V58.69 MEDICATION HIGH RISK 03/18/2008 ARI BURDICK, WHITNEY V58.69 MEDICATION HIGH RISK 03/18/2008 CARITO DIOP, SAMMY S V58.69 MEDICATION HIGH RISK 03/18/2008 ARI BURDICK, WHITNEY V58.69 MEDICATION HIGH RISK 03/18/2008 CARITO DIOP, SAMMY S V58.69 MEDICATION HIGH RISK 03/18/2008 CARITO DIOP, SAMMY S V58.69 MEDICATION HIGH RISK 03/18/2008 PAULETTE PHD, LASHONDA A V58.69 MEDICATION HIGH RISK 03/18/2008 PAULETTE PHD, LASHONDA A V58.69 MEDICATION HIGH RISK 03/18/2008 PAULETTE PHD, LASHONDA A V58.69 MEDICATION HIGH RISK 03/18/2008 SHRAVAN ARZATE APRNNDA S V58.69 MEDICATION HIGH RISK 03/18/2008 PAULETTE PHD, LASHONDA A V58.69 MEDICATION HIGH RISK 05/12/2008 ADAMS ARZATE APRNA S 309.81 AN PTSD 05/12/2008 ADAMS ARZATE APRNA S 309.81 AN PTSD 05/12/2008 SHRAVAN ARZATE APRNNDA S 309.81 AN PTSD 05/12/2008 ADAMS ARZATE APRNA S 309.81 AN PTSD 05/12/2008 309.81 AN PTSD 05/12/2008 309.81 AN PTSD 05/12/2008 309.81 AN PTSD 05/12/2008 309.81 AN PTSD 05/12/2008 309.81 AN PTSD 05/12/2008 SHRAVAN ARZATE APRNNDA S 309.81 AN PTSD 05/12/2008 WHITNEY CHAPMAN MD 309.81 AN PTSD 05/12/2008 CARITO DIOP SAMMY S 309.81 AN PTSD 05/12/2008 CARITO DIOP, SAMMY S 309.81 AN PTSD 05/12/2008 EDITH STAFF CONSULTANTMICHAEL GUNTER 309.81 AN PTSD 05/12/2008 PAULETTE JUARES, LASHONDA A 309.81 AN PTSD 05/12/2008 PAULETTE JUARES, LASHONDA A 309.81 AN PTSD 05/12/2008 WHITNEY CHAPMAN MD 309.81 AN PTSD 05/12/2008 SHRAVAN ARZATE APRNNDA S 309.81 AN PTSD 05/12/2008 WHITNEY CHAPMAN MD 309.81 AN PTSD 05/12/2008 SHRAVAN ARZATE APRNNDA S 309.81 AN PTSD 05/12/2008 SHRAVAN ARZATE APRNNDA S 309.81 AN PTSD 05/12/2008 PAULETTE JUARES, LASHONDA A 309.81 AN PTSD 05/12/2008 PAULETTE JUARES, LASHONDA A 309.81 AN PTSD 05/12/2008 PAULETTE JUARES, LASHONDA A 309.81 AN PTSD 05/12/2008 SHRAVAN ARZATE APRNNDA S 309.81 AN PTSD 05/12/2008 PAULETTE JUARES, LASHONDA A 309.81 AN PTSD 05/27/2008 SHRAVAN ARZATE APRNNDA S 300.02 GENERALIZED ANXIETY DISORDER 05/27/2008 CARITO DIOP SAMMY S 300.02 GENERALIZED ANXIETY DISORDER 05/27/2008 CARITO DIOP SAMMY S 300.02 GENERALIZED ANXIETY DISORDER 05/27/2008 CARITO DIOP SAMMY S 300.02 GENERALIZED ANXIETY DISORDER 05/27/2008 300.02 GENERALIZED ANXIETY DISORDER 05/27/2008 300.02 GENERALIZED ANXIETY DISORDER 05/27/2008 300.02 GENERALIZED ANXIETY DISORDER 05/27/2008 300.02 GENERALIZED ANXIETY DISORDER 05/27/2008 300.02 GENERALIZED ANXIETY DISORDER 05/27/2008 SHRAVAN ARZATE APRNNDA S 300.02 GENERALIZED ANXIETY DISORDER 05/27/2008 WHITNEY CHAPMAN MD 300.02 GENERALIZED ANXIETY DISORDER 05/27/2008 CARITO DIOP, SAMMY S 300.02 GENERALIZED ANXIETY DISORDER 05/27/2008 CARITO DIOP, SAMMY S 300.02 GENERALIZED ANXIETY DISORDER 05/27/2008 MICHAEL SHARMA LCPC 300.02 GENERALIZED ANXIETY DISORDER 05/27/2008 PAULETTE PHD, LASHONDA A 300.02 GENERALIZED ANXIETY DISORDER 05/27/2008 PAULETTE PHD, LASHONDA A 300.02 GENERALIZED ANXIETY DISORDER 05/27/2008 WHITNEY CHAPMAN MD 300.02 GENERALIZED ANXIETY DISORDER 05/27/2008 CARITO DIOP, SAMMY S 300.02 GENERALIZED ANXIETY DISORDER 05/27/2008 WHITNEY CHAPMAN MD 300.02 GENERALIZED ANXIETY DISORDER 05/27/2008 CARITO DIOP, SAMMY S 300.02 GENERALIZED ANXIETY DISORDER 05/27/2008 CARITO DIOP, SAMMY S 300.02 GENERALIZED ANXIETY DISORDER 05/27/2008 PAULETTE PHD, LASHONDA A 300.02 GENERALIZED ANXIETY DISORDER 05/27/2008 PAULETTE PHD, LASHONDA A 300.02 GENERALIZED ANXIETY DISORDER 05/27/2008 PAULETTE PHD, LASHONDA A 300.02 GENERALIZED ANXIETY DISORDER 05/27/2008 CARITO DIOP, SAMMY S 300.02 GENERALIZED ANXIETY DISORDER 05/27/2008 PAULETTE PHD, LASHONDA A 300.02 GENERALIZED ANXIETY DISORDER 06/14/2009 CARITO DIOP, SAMMY S 724.5 BACKACHE UNSPECIFIED 06/14/2009 CARITO DIOP, SAMMY S 724.5 BACKACHE UNSPECIFIED 06/14/2009 CARITO DIOP, SAMMY S 724.5 BACKACHE UNSPECIFIED 06/14/2009 CARITO DIOP, SAMMY S 724.5 BACKACHE UNSPECIFIED 06/14/2009 724.5 BACKACHE UNSPECIFIED 06/14/2009 724.5 BACKACHE UNSPECIFIED 06/14/2009 724.5 BACKACHE UNSPECIFIED 06/14/2009 724.5 BACKACHE UNSPECIFIED 06/14/2009 724.5 BACKACHE UNSPECIFIED 06/14/2009 SHRAVAN ARZATE APRNNDA S 724.5 BACKACHE UNSPECIFIED 06/14/2009 WHITNEY CHAPMAN MD 724.5 BACKACHE UNSPECIFIED 06/14/2009 CARITO GANG MOWER OPERATOR, SAMMY S 724.5 BACKACHE UNSPECIFIED 06/14/2009 CARITO GANG MOWER OPERATOR, SAMMY S 724.5 BACKACHE UNSPECIFIED 06/14/2009 EDITH MAHONEY, MICHAEL Baker 724.5 BACKACHE UNSPECIFIED 06/14/2009 [facility], LASHONDA A 724.5 BACKACHE UNSPECIFIED 06/14/2009 [facility], LASHONDA A 724.5 BACKACHE UNSPECIFIED 06/14/2009 ARI BURDICK, WHITNEY 724.5 BACKACHE UNSPECIFIED 06/14/2009 CARITO GANG MOWER OPERATOR, SAMMY S 724.5 BACKACHE UNSPECIFIED 06/14/2009 ARI BURDICK, WHITNEY 724.5 BACKACHE UNSPECIFIED 06/14/2009 CARITO GANG MOWER OPERATOR, SAMMY S 724.5 BACKACHE UNSPECIFIED 06/14/2009 CARITO GANG MOWER OPERATOR, SAMMY S 724.5 BACKACHE UNSPECIFIED 06/14/2009 PAULETTE PHD, LASHONDA A 724.5 BACKACHE UNSPECIFIED 06/14/2009 PAULETTE PHD, LASHONDA A 724.5 BACKACHE UNSPECIFIED 06/14/2009 PAULETTE PHD, LASHONDA A 724.5 BACKACHE UNSPECIFIED 06/14/2009 CARITO GANG MOWER OPERATOR, SAMMY S 724.5 BACKACHE UNSPECIFIED 06/14/2009 PAULETTE PHD, LASHONDA A 724.5 BACKACHE UNSPECIFIED 05/02/2011 CARITO GANG MOWER OPERATOR, SAMMY S 780.79 OTHER MALAISE AND FATIGUE 05/02/2011 CARITO GANG MOWER OPERATOR, SAMMY S 780.93 MEMORY LOSS 05/02/2011 CARITO GANG MOWER OPERATOR, SAMMY S 781.0 ABNORMAL INVOLUNTARY MOVEMENTS 05/02/2011 CARITO GANG MOWER OPERATOR, SAMMY S V17.49 FAMILY HISTORY OF OTHER CARDIOVASCULAR DISEASES 05/02/2011 CARITO GANG MOWER OPERATOR, SAMMY S 780.79 OTHER MALAISE AND FATIGUE 05/02/2011 CARITO GANG MOWER OPERATOR, SAMMY S 780.93 MEMORY LOSS 05/02/2011 CARITO GANG MOWER OPERATOR, ASMMY S 781.0 ABNORMAL INVOLUNTARY MOVEMENTS 05/02/2011 CARITO GANG MOWER OPERATOR, SAMMY S V17.49 FAMILY HISTORY OF OTHER CARDIOVASCULAR DISEASES 05/02/2011 CARITO GANG MOWER OPERATORSHRAVAN GunnNDA S 780.79 OTHER MALAISE AND FATIGUE 05/02/2011 CARITO GANG MOWER OPERATOR, SAMMY S 780.93 MEMORY LOSS 05/02/2011 SHRAVAN ARZATE APRNNDA S 781.0 ABNORMAL INVOLUNTARY MOVEMENTS 05/02/2011 CARITO GANG MOWER OPERATORSHRAVAN GunnNDA S V17.49 FAMILY HISTORY OF OTHER CARDIOVASCULAR DISEASES 05/02/2011 SHRAVAN ARZATE APRNNDA S 780.79 OTHER MALAISE AND FATIGUE 05/02/2011 CARITO GANG MOWER OPERATORSHRAVAN GunnNDA S 780.93 MEMORY LOSS 05/02/2011 SHRAVAN ARZATE APRNNDA S 781.0 ABNORMAL INVOLUNTARY MOVEMENTS 05/02/2011 HSRAVAN ARZATE APRNNDA S V17.49 FAMILY HISTORY OF OTHER CARDIOVASCULAR DISEASES 05/02/2011 780.79 OTHER MALAISE AND FATIGUE 05/02/2011 780.93 MEMORY LOSS 05/02/2011 781.0 ABNORMAL INVOLUNTARY MOVEMENTS 05/02/2011 V17.49 FAMILY HISTORY OF OTHER CARDIOVASCULAR DISEASES 05/02/2011 780.79 OTHER MALAISE AND FATIGUE 05/02/2011 780.93 MEMORY LOSS 05/02/2011 781.0 ABNORMAL INVOLUNTARY MOVEMENTS 05/02/2011 V17.49 FAMILY HISTORY OF OTHER CARDIOVASCULAR DISEASES 05/02/2011 780.79 OTHER MALAISE AND FATIGUE 05/02/2011 780.93 MEMORY LOSS 05/02/2011 781.0 ABNORMAL INVOLUNTARY MOVEMENTS 05/02/2011 V17.49 FAMILY HISTORY OF OTHER CARDIOVASCULAR DISEASES 05/02/2011 780.79 OTHER MALAISE AND FATIGUE 05/02/2011 780.93 MEMORY LOSS 05/02/2011 781.0 ABNORMAL INVOLUNTARY MOVEMENTS 05/02/2011 V17.49 FAMILY HISTORY OF OTHER CARDIOVASCULAR DISEASES 05/02/2011 780.79 OTHER MALAISE AND FATIGUE 05/02/2011 780.93 MEMORY LOSS 05/02/2011 781.0 ABNORMAL INVOLUNTARY MOVEMENTS 05/02/2011 V17.49 FAMILY HISTORY OF OTHER CARDIOVASCULAR DISEASES 05/02/2011 CARITO GANG MOWER OPERATORSHRAVAN GunnNDA S 780.79 OTHER MALAISE AND FATIGUE 05/02/2011 SHRAVAN ARZATE APRNNDA S 780.93 MEMORY LOSS 05/02/2011 CARITO GANG MOWER OPERATOR, SAMMY S 781.0 ABNORMAL INVOLUNTARY MOVEMENTS 05/02/2011 CARITO GANG MOWER OPERATOR, SAMMY S V17.49 FAMILY HISTORY OF OTHER CARDIOVASCULAR DISEASES 05/02/2011 WHITNEY CHAPMAN MD 780.79 OTHER MALAISE AND FATIGUE 05/02/2011 WHITNEY CHAPMAN MD 780.93 MEMORY LOSS 05/02/2011 WHITNEY CHAPMAN MD 781.0 ABNORMAL INVOLUNTARY MOVEMENTS 05/02/2011 WHITNEY CHAPMAN MD V17.49 FAMILY HISTORY OF OTHER CARDIOVASCULAR DISEASES 05/02/2011 CARITO GANG MOWER OPERATOR, SAMMY S 780.79 OTHER MALAISE AND FATIGUE 05/02/2011 CARITO GANG MOWER OPERATOR, SAMMY S 780.93 MEMORY LOSS 05/02/2011 CARITO GANG MOWER OPERATOR, SAMMY S 781.0 ABNORMAL INVOLUNTARY MOVEMENTS 05/02/2011 CARITO GANG MOWER OPERATOR, SAMMY S V17.49 FAMILY HISTORY OF OTHER CARDIOVASCULAR DISEASES 05/02/2011 CARITO GANG MOWER OPERATOR, SAMMY S 780.79 OTHER MALAISE AND FATIGUE 05/02/2011 CARITO GANG MOWER OPERATOR, SAMMY S 780.93 MEMORY LOSS 05/02/2011 CARITO GANG MOWER OPERATOR, SAMMY S 781.0 ABNORMAL INVOLUNTARY MOVEMENTS 05/02/2011 CARITO GANG MOWER OPERATOR, SAMMY S V17.49 FAMILY HISTORY OF OTHER CARDIOVASCULAR DISEASES 05/02/2011 EDITH STAFF CONSULTANTMICHAEL B 780.79 OTHER MALAISE AND FATIGUE 05/02/2011 EDITH STAFF CONSULTANTMICHAEL B 780.93 MEMORY LOSS 05/02/2011 EDITH STAFF CONSULTANT, MICHAEL B 781.0 ABNORMAL INVOLUNTARY MOVEMENTS 05/02/2011 EDITH STAFF CONSULTANT MICHAEL B V17.49 FAMILY HISTORY OF OTHER CARDIOVASCULAR DISEASES 05/02/2011 LASHONDA CALDWELL PHD 780.79 OTHER MALAISE AND FATIGUE 05/02/2011 LASHONDA CALDWELL PHD 780.93 MEMORY LOSS 05/02/2011 LASHONDA CALDWELL PHD 781.0 ABNORMAL INVOLUNTARY MOVEMENTS 05/02/2011 LASHONDA CALDWELL PHD V17.49 FAMILY HISTORY OF OTHER CARDIOVASCULAR DISEASES 05/02/2011 LASHONDA CALDWELL PHD 780.79 OTHER MALAISE AND FATIGUE 05/02/2011 LASHONDA CALDWELL PHD 780.93 MEMORY LOSS 05/02/2011 PAULETTE PHD, LASHONDA A 781.0 ABNORMAL INVOLUNTARY MOVEMENTS 05/02/2011 PAULETTE PHD, LASHONDA A V17.49 FAMILY HISTORY OF OTHER CARDIOVASCULAR DISEASES 05/02/2011 WHITNEY CHAPMAN MD 780.79 OTHER MALAISE AND FATIGUE 05/02/2011 WHITNEY CHAPMAN MD 780.93 MEMORY LOSS 05/02/2011 WHITNEY CHAPMAN MD 781.0 ABNORMAL INVOLUNTARY MOVEMENTS 05/02/2011 WHITNEY CHAPMAN MD V17.49 FAMILY HISTORY OF OTHER CARDIOVASCULAR DISEASES 05/02/2011 CARITO GANG MOWER OPERATOR, SAMMY S 780.79 OTHER MALAISE AND FATIGUE 05/02/2011 CARITO GANG MOWER OPERATOR, SAMMY S 780.93 MEMORY LOSS 05/02/2011 CARITO GANG MOWER OPERATOR, SAMMY S 781.0 ABNORMAL INVOLUNTARY MOVEMENTS 05/02/2011 CARITO GANG MOWER OPERATOR, SAMMY S V17.49 FAMILY HISTORY OF OTHER CARDIOVASCULAR DISEASES 05/02/2011 WHITNEY CHAPMAN MD 780.79 OTHER MALAISE AND FATIGUE 05/02/2011 WHITNEY CHAPMAN MD 780.93 MEMORY LOSS 05/02/2011 WHITNEY CHAPMAN MD 781.0 ABNORMAL INVOLUNTARY MOVEMENTS 05/02/2011 WHITNEY CHAPMAN MD V17.49 FAMILY HISTORY OF OTHER CARDIOVASCULAR DISEASES 05/02/2011 CARITO GANG MOWER OPERATOR, SAMMY S 780.79 OTHER MALAISE AND FATIGUE 05/02/2011 CARITO GANG MOWER OPERATOR, SAMMY S 780.93 MEMORY LOSS 05/02/2011 CARITO GANG MOWER OPERATOR, SAMMY S 781.0 ABNORMAL INVOLUNTARY MOVEMENTS 05/02/2011 CARITO GANG MOWER OPERATOR, SAMMY S V17.49 FAMILY HISTORY OF OTHER CARDIOVASCULAR DISEASES 05/02/2011 CARITO GANG MOWER OPERATOR, SAMMY S 780.79 OTHER MALAISE AND FATIGUE 05/02/2011 CARITO GANG MOWER OPERATOR, SAMMY S 780.93 MEMORY LOSS 05/02/2011 CARITO GANG MOWER OPERATOR, SAMMY S 781.0 ABNORMAL INVOLUNTARY MOVEMENTS 05/02/2011 CARITO GANG MOWER OPERATOR, SAMMY S V17.49 FAMILY HISTORY OF OTHER CARDIOVASCULAR DISEASES 05/02/2011 PAULETTE JUARES, LASHONDA Chiu 780.79 OTHER MALAISE AND FATIGUE 05/02/2011 PAULETTE JUARES, LASHONDA A 780.93 MEMORY LOSS 05/02/2011 [facility] LASHONDA A 781.0 ABNORMAL INVOLUNTARY MOVEMENTS 05/02/2011 [facility] LASHONDA JUARES V17.49 FAMILY HISTORY OF OTHER CARDIOVASCULAR DISEASES 05/02/2011 [facility] LASHONDA A 780.79 OTHER MALAISE AND FATIGUE 05/02/2011 [facility] , LASHONDA A 780.93 MEMORY LOSS 05/02/2011 [facility] LASHONDA JUARES A 781.0 ABNORMAL INVOLUNTARY MOVEMENTS 05/02/2011 [facility] LASHONDA Chiu V17.49 FAMILY HISTORY OF OTHER CARDIOVASCULAR DISEASES 05/02/2011 [facility] LASHONDA A 780.79 OTHER MALAISE AND FATIGUE 05/02/2011 [facility] LASHONDA JUARES A 780.93 MEMORY LOSS 05/02/2011 [facility] , LASHONDA A 781.0 ABNORMAL INVOLUNTARY MOVEMENTS 05/02/2011 [facility] LASHONDA JUARES V17.49 FAMILY HISTORY OF OTHER CARDIOVASCULAR DISEASES 05/02/2011 SHRAVAN ARZATE APRNNDA S 780.79 OTHER MALAISE AND FATIGUE 05/02/2011 SHRAVAN ARZATE APRNNDA S 780.93 MEMORY LOSS 05/02/2011 SHRAVAN ARZATE APRNNDA S 781.0 ABNORMAL INVOLUNTARY MOVEMENTS 05/02/2011 SHRAVAN ARZATE APRNNDA S V17.49 FAMILY HISTORY OF OTHER CARDIOVASCULAR DISEASES 05/02/2011 [facility] LASHONDA JUARES A 780.79 OTHER MALAISE AND FATIGUE 05/02/2011 [facility] LASHONDA JUARES A 780.93 MEMORY LOSS 05/02/2011 [facility] LASHONDA JUARES A 781.0 ABNORMAL INVOLUNTARY MOVEMENTS 05/02/2011 [facility] LASHONDA JUARES V17.49 FAMILY HISTORY OF OTHER CARDIOVASCULAR DISEASES 06/11/2011 CARITO DIOP, SAMMY S 724.2 LUMBAGO 06/11/2011 SHRAVAN ARZATE APRNNDA S 724.2 LUMBAGO 06/11/2011 CARITO DIOP SAMMY S 724.2 LUMBAGO 06/11/2011 CARITO DIOP SAMMY S 724.2 LUMBAGO 06/11/2011 724.2 LUMBAGO 06/11/2011 724.2 LUMBAGO 06/11/2011 724.2 LUMBAGO 06/11/2011 724.2 LUMBAGO 06/11/2011 724.2 LUMBAGO 06/11/2011 CARITO DIOP, SAMMY S 724.2 LUMBAGO 06/11/2011 WHITNEY CHAPMAN MD 724.2 LUMBAGO 06/11/2011 CARITO DIOP, SAMMY S 724.2 LUMBAGO 06/11/2011 CARITO DIOP, SAMMY S 724.2 LUMBAGO 06/11/2011 [facility] MICHAEL Baker 724.2 LUMBAGO 06/11/2011 PAULETTE PHD, LASHONDA A 724.2 LUMBAGO 06/11/2011 PAULETTE PHD, LASHONDA A 724.2 LUMBAGO 06/11/2011 WHITNEY CHAPMAN MD 724.2 LUMBAGO 06/11/2011 ADAMS ARZATE APRNA S 724.2 LUMBAGO 06/11/2011 ARI BURDICK, WHITNEY 724.2 LUMBAGO 06/11/2011 CARITO DIOP, SAMMY S 724.2 LUMBAGO 06/11/2011 CARITO DIOP, SAMMY S 724.2 LUMBAGO 06/11/2011 PAULETTE PHD, LASHONDA A 724.2 LUMBAGO 06/11/2011 PAULETTE PHD, LASHONDA A 724.2 LUMBAGO 06/11/2011 PAULETTE PHD, LASHONDA A 724.2 LUMBAGO 06/11/2011 SHRAVAN ARZATE APRNNDA S 724.2 LUMBAGO 06/11/2011 PAULETTE PHD, LASHONDA A 724.2 LUMBAGO 06/28/2011 SAMMY ARZATE APRN S 311 DEPRESSIVE DISORDER NOT ELSEWHERE CLASSIFIED 06/28/2011 SAMMY ARZATE APRN 311 DEPRESSIVE DISORDER NOT ELSEWHERE CLASSIFIED 06/28/2011 SAMMY ARZATE APRN S 311 DEPRESSIVE DISORDER NOT ELSEWHERE CLASSIFIED 06/28/2011 SAMMY ARZATE APRN S 311 DEPRESSIVE DISORDER NOT ELSEWHERE CLASSIFIED 06/28/2011 311 DEPRESSIVE DISORDER NOT ELSEWHERE CLASSIFIED 06/28/2011 311 DEPRESSIVE DISORDER NOT ELSEWHERE CLASSIFIED 06/28/2011 311 DEPRESSIVE DISORDER NOT ELSEWHERE CLASSIFIED 06/28/2011 311 DEPRESSIVE DISORDER NOT ELSEWHERE CLASSIFIED 06/28/2011 311 DEPRESSIVE DISORDER NOT ELSEWHERE CLASSIFIED 06/28/2011 CARITO DIOP, SAMMY S 311 DEPRESSIVE DISORDER NOT ELSEWHERE CLASSIFIED 06/28/2011 WHITNEY CHAPMAN MD 311 DEPRESSIVE DISORDER NOT ELSEWHERE CLASSIFIED 06/28/2011 CARITO DIOP, SAMMY S 311 DEPRESSIVE DISORDER NOT ELSEWHERE CLASSIFIED 06/28/2011 CARITO DIOP SAMMY S 311 DEPRESSIVE DISORDER NOT ELSEWHERE CLASSIFIED 06/28/2011 EDITH MAHONEY, MICHAEL B 311 DEPRESSIVE DISORDER NOT ELSEWHERE CLASSIFIED 06/28/2011 LASHONDA CALDWELL PHD 311 DEPRESSIVE DISORDER NOT ELSEWHERE CLASSIFIED 06/28/2011 LASHONDA CALDWELL PHD 311 DEPRESSIVE DISORDER NOT ELSEWHERE CLASSIFIED 06/28/2011 WHITNEY CHAPMAN MD 311 DEPRESSIVE DISORDER NOT ELSEWHERE CLASSIFIED 06/28/2011 SHRAVAN ARZATE APRNNDA S 311 DEPRESSIVE DISORDER NOT ELSEWHERE CLASSIFIED 06/28/2011 WHITNEY CHAPMAN MD 311 DEPRESSIVE DISORDER NOT ELSEWHERE CLASSIFIED 06/28/2011 SHRAVAN ARZATE APRNNDA S 311 DEPRESSIVE DISORDER NOT ELSEWHERE CLASSIFIED 06/28/2011 CARITO DIOP SAMMY S 311 DEPRESSIVE DISORDER NOT ELSEWHERE CLASSIFIED 06/28/2011 LASHONDA CALDWELL PHD 311 DEPRESSIVE DISORDER NOT ELSEWHERE CLASSIFIED 06/28/2011 LASHONDA CALDWELL PHD 311 DEPRESSIVE DISORDER NOT ELSEWHERE CLASSIFIED 06/28/2011 LASHONDA CALDWELL PHD 311 DEPRESSIVE DISORDER NOT ELSEWHERE CLASSIFIED 06/28/2011 CARITO DIOP SAMMY S 311 DEPRESSIVE DISORDER NOT ELSEWHERE CLASSIFIED 06/28/2011 LASHONDA CALDWELL PHD 311 DEPRESSIVE DISORDER NOT ELSEWHERE CLASSIFIED 07/05/2011 CARITO DIOP, SAMMY S 401.1 HYPERTENSION, BENIGN ESSENTIAL 07/05/2011 CARITO DIOP SAMMY S 401.1 HYPERTENSION, BENIGN ESSENTIAL 07/05/2011 CARITO DIOP SAMMY S 401.1 HYPERTENSION, BENIGN ESSENTIAL 07/05/2011 CARITO DIOP SAMMY S 401.1 HYPERTENSION, BENIGN ESSENTIAL 07/05/2011 401.1 HYPERTENSION, BENIGN ESSENTIAL 07/05/2011 401.1 HYPERTENSION, BENIGN ESSENTIAL 07/05/2011 401.1 HYPERTENSION, BENIGN ESSENTIAL 07/05/2011 401.1 HYPERTENSION, BENIGN ESSENTIAL 07/05/2011 401.1 HYPERTENSION, BENIGN ESSENTIAL 07/05/2011 CARITO DIOP, SAMMY S 401.1 HYPERTENSION, BENIGN ESSENTIAL 07/05/2011 ARI BURDICK, WHITNEY 401.1 HYPERTENSION, BENIGN ESSENTIAL 07/05/2011 CARITO DIOP, SAMMY S 401.1 HYPERTENSION, BENIGN ESSENTIAL 07/05/2011 CARITO DIOP, SAMMY S 401.1 HYPERTENSION, BENIGN ESSENTIAL 07/05/2011 EDITH FARNSWORTHPC, MICHAEL B 401.1 HYPERTENSION, BENIGN ESSENTIAL 07/05/2011 PAULETTE PHD, LASHONDA A 401.1 HYPERTENSION, BENIGN ESSENTIAL 07/05/2011 PAULETTE PHD, LASHONDA A 401.1 HYPERTENSION, BENIGN ESSENTIAL 07/05/2011 ARI BURDICK, WHITNEY 401.1 HYPERTENSION, BENIGN ESSENTIAL 07/05/2011 CARIOT DIOP, SAMMY S 401.1 HYPERTENSION, BENIGN ESSENTIAL 07/05/2011 ARI BURDICK, WHITNEY 401.1 HYPERTENSION, BENIGN ESSENTIAL 07/05/2011 CARITO DIOP, SAMMY S 401.1 HYPERTENSION, BENIGN ESSENTIAL 07/05/2011 CARITO DIOP, SAMMY S 401.1 HYPERTENSION, BENIGN ESSENTIAL 07/05/2011 PAULETTE PHD, LASHONDA A 401.1 HYPERTENSION, BENIGN ESSENTIAL 07/05/2011 PAULETTE PHD, LASHONDA A 401.1 HYPERTENSION, BENIGN ESSENTIAL 07/05/2011 PAULETTE PHD, LASHONDA A 401.1 HYPERTENSION, BENIGN ESSENTIAL 07/05/2011 CARIOT DIOP, SAMMY S 401.1 HYPERTENSION, BENIGN ESSENTIAL 07/05/2011 PAULETTE PHD, LASHONDA A 401.1 HYPERTENSION, BENIGN ESSENTIAL 07/09/2011 CARITO DIOP SAMMY S 296.33 MO DEPRESSIVE RECURRENT SEVERE W/O PSYCHOTIC BEHAVIOR 07/09/2011 CARITO DIOP SAMMY S 300.01 AN PANIC DIS W/O AGORA 07/09/2011 CARITO DIOP SAMMY S 296.33 MO DEPRESSIVE RECURRENT SEVERE W/O PSYCHOTIC BEHAVIOR 07/09/2011 CARITO DIOP, SAMMY S 300.01 AN PANIC DIS W/O AGORA 07/09/2011 CARITO DIOP SAMMY S 296.33 MO DEPRESSIVE RECURRENT SEVERE W/O PSYCHOTIC BEHAVIOR 07/09/2011 SHRAVAN ARZATE APRNNDA S 300.01 AN PANIC DIS W/O AGORA 07/09/2011 SAMMY ARZATE APRN S 296.33 MO DEPRESSIVE RECURRENT SEVERE W/O PSYCHOTIC BEHAVIOR 07/09/2011 SAMMY ARZATE APRN S 300.01 AN PANIC DIS W/O AGORA 07/09/2011 296.33 MO DEPRESSIVE RECURRENT SEVERE W/O PSYCHOTIC BEHAVIOR 07/09/2011 300.01 AN PANIC DIS W/O AGORA 07/09/2011 296.33 MO DEPRESSIVE RECURRENT SEVERE W/O PSYCHOTIC BEHAVIOR 07/09/2011 300.01 AN PANIC DIS W/O AGORA 07/09/2011 296.33 MO DEPRESSIVE RECURRENT SEVERE W/O PSYCHOTIC BEHAVIOR 07/09/2011 300.01 AN PANIC DIS W/O AGORA 07/09/2011 296.33 MO DEPRESSIVE RECURRENT SEVERE W/O PSYCHOTIC BEHAVIOR 07/09/2011 300.01 AN PANIC DIS W/O AGORA 07/09/2011 296.33 MO DEPRESSIVE RECURRENT SEVERE W/O PSYCHOTIC BEHAVIOR 07/09/2011 300.01 AN PANIC DIS W/O AGORA 07/09/2011 SAMMY ARZATE APRN S 296.33 MO DEPRESSIVE RECURRENT SEVERE W/O PSYCHOTIC BEHAVIOR 07/09/2011 SAMMY ARZATE APRN S 300.01 AN PANIC DIS W/O AGORA 07/09/2011 WHITNEY CHAPMAN MD 296.33 MO DEPRESSIVE RECURRENT SEVERE W/O PSYCHOTIC BEHAVIOR 07/09/2011 WHITNEY CHAPMAN MD 300.01 AN PANIC DIS W/O AGORA 07/09/2011 SAMMY ARZATE APRN S 296.33 MO DEPRESSIVE RECURRENT SEVERE W/O PSYCHOTIC BEHAVIOR 07/09/2011 SAMMY ARZATE APRN S 300.01 AN PANIC DIS W/O AGORA 07/09/2011 SAMMY ARZATE APRN S 296.33 MO DEPRESSIVE RECURRENT SEVERE W/O PSYCHOTIC BEHAVIOR 07/09/2011 SAMMY ARZATE APRN S 300.01 AN PANIC DIS W/O AGORA 07/09/2011 MICHAEL SHARMA LCPC 296.33 MO DEPRESSIVE RECURRENT SEVERE W/O PSYCHOTIC BEHAVIOR 07/09/2011 MICHAEL SHARMA LCPC 300.01 AN PANIC DIS W/O AGORA 07/09/2011 PAULETTE JUARES, LASHONDA A 296.33 MO DEPRESSIVE RECURRENT SEVERE W/O PSYCHOTIC BEHAVIOR 07/09/2011 PAULETTE PHD, LASHONDA A 300.01 AN PANIC DIS W/O AGORA 07/09/2011 PAULETTE JUARES, LASHONDA A 296.33 MO DEPRESSIVE RECURRENT SEVERE W/O PSYCHOTIC BEHAVIOR 07/09/2011 PAULETTE JUARES, LASHONDA A 300.01 AN PANIC DIS W/O AGORA 07/09/2011 WHITNEY CHAPMAN MD 296.33 MO DEPRESSIVE RECURRENT SEVERE W/O PSYCHOTIC BEHAVIOR 07/09/2011 WHITNEY CHAPMAN MD 300.01 AN PANIC DIS W/O AGORA 07/09/2011 SHRAVAN ARZATE APRNNDA S 296.33 MO DEPRESSIVE RECURRENT SEVERE W/O PSYCHOTIC BEHAVIOR 07/09/2011 SHRAVAN ARZATE APRNNDA S 300.01 AN PANIC DIS W/O AGORA 07/09/2011 WHITNEY CHAPMAN MD 296.33 MO DEPRESSIVE RECURRENT SEVERE W/O PSYCHOTIC BEHAVIOR 07/09/2011 WHITNEY CHAPMAN MD 300.01 AN PANIC DIS W/O AGORA 07/09/2011 SHRAVAN ARZATE APRNNDA S 296.33 MO DEPRESSIVE RECURRENT SEVERE W/O PSYCHOTIC BEHAVIOR 07/09/2011 SHRAVAN ARZATE APRNNDA S 300.01 AN PANIC DIS W/O AGORA 07/09/2011 SHRAVAN ARZATE APRNNDA S 296.33 MO DEPRESSIVE RECURRENT SEVERE W/O PSYCHOTIC BEHAVIOR 07/09/2011 SHRAVAN ARZATE APRNNDA S 300.01 AN PANIC DIS W/O AGORA 07/09/2011 PAULETTE JUARES, LASHONDA A 296.33 MO DEPRESSIVE RECURRENT SEVERE W/O PSYCHOTIC BEHAVIOR 07/09/2011 PAULETTE JUARES, LASHONDA A 300.01 AN PANIC DIS W/O AGORA 07/09/2011 PAULETTE JUARES, LASHONDA A 296.33 MO DEPRESSIVE RECURRENT SEVERE W/O PSYCHOTIC BEHAVIOR 07/09/2011 PAULETTE JUARES, LASHONDA A 300.01 AN PANIC DIS W/O AGORA 07/09/2011 PAULETTE JUARES, LASHONDA A 296.33 MO DEPRESSIVE RECURRENT SEVERE W/O PSYCHOTIC BEHAVIOR 07/09/2011 PAULETTE JUARES, LASHONDA A 300.01 AN PANIC DIS W/O AGORA 07/09/2011 SHRAVAN ARZATE APRNNDA S 296.33 MO DEPRESSIVE RECURRENT SEVERE W/O PSYCHOTIC BEHAVIOR 07/09/2011 CARITO DIOP, SAMMY S 300.01 AN PANIC DIS W/O AGORA 07/09/2011 PAULETTE JUARES, LASHONDA A 296.33 MO DEPRESSIVE RECURRENT SEVERE W/O PSYCHOTIC BEHAVIOR 07/09/2011 PAULETTE JUARES, LASHONDA A 300.01 AN PANIC DIS W/O AGORA 01/21/2012 CARITO DIOP SAMMY S 553.1 UMBILICAL HERNIA WITHOUT OBSTRUCTION OR GANGRENE 01/21/2012 CARITO DIOP SAMMY S 723.1 CERVICALGIA 01/21/2012 CARITO DIOP, SAMMY S 553.1 UMBILICAL HERNIA WITHOUT OBSTRUCTION OR GANGRENE 01/21/2012 CARITO DIOP SAMMY S 723.1 CERVICALGIA 01/21/2012 CARITO DIOP SAMMY S 553.1 UMBILICAL HERNIA WITHOUT OBSTRUCTION OR GANGRENE 01/21/2012 CARITO DIOP SAMMY S 723.1 CERVICALGIA 01/21/2012 CARITO DIOP SAMMY S 553.1 UMBILICAL HERNIA WITHOUT OBSTRUCTION OR GANGRENE 01/21/2012 CARITO DIOP, SAMMY S 723.1 CERVICALGIA 01/21/2012 553.1 UMBILICAL HERNIA WITHOUT OBSTRUCTION OR GANGRENE 01/21/2012 723.1 CERVICALGIA 01/21/2012 553.1 UMBILICAL HERNIA WITHOUT OBSTRUCTION OR GANGRENE 01/21/2012 723.1 CERVICALGIA 01/21/2012 553.1 UMBILICAL HERNIA WITHOUT OBSTRUCTION OR GANGRENE 01/21/2012 723.1 CERVICALGIA 01/21/2012 553.1 UMBILICAL HERNIA WITHOUT OBSTRUCTION OR GANGRENE 01/21/2012 723.1 CERVICALGIA 01/21/2012 553.1 UMBILICAL HERNIA WITHOUT OBSTRUCTION OR GANGRENE 01/21/2012 723.1 CERVICALGIA 01/21/2012 CARITO DIOP SAMMY S 553.1 UMBILICAL HERNIA WITHOUT OBSTRUCTION OR GANGRENE 01/21/2012 CARITO DIOP SAMMY S 723.1 CERVICALGIA 01/21/2012 WHITNEY CHAPMAN MD 553.1 UMBILICAL HERNIA WITHOUT OBSTRUCTION OR GANGRENE 01/21/2012 WHITNEY CHAPMAN MD 723.1 CERVICALGIA 01/21/2012 CARITO GANG MOWER OPERATOR, SAMMY S 553.1 UMBILICAL HERNIA WITHOUT OBSTRUCTION OR GANGRENE 01/21/2012 CARITO GANG MOWER OPERATOR, SAMMY S 723.1 CERVICALGIA 01/21/2012 CARITO GANG MOWER OPERATOR, SAMMY S 553.1 UMBILICAL HERNIA WITHOUT OBSTRUCTION OR GANGRENE 01/21/2012 CARITO GANG MOWER OPERATOR, SAMMY S 723.1 CERVICALGIA 01/21/2012 MICHAEL SHARMA LCPC B 553.1 UMBILICAL HERNIA WITHOUT OBSTRUCTION OR GANGRENE 01/21/2012 EDITH MAHONEY, MICHAEL B 723.1 CERVICALGIA 01/21/2012 LASHONDA CALDWELL PHD 553.1 UMBILICAL HERNIA WITHOUT OBSTRUCTION OR GANGRENE 01/21/2012 LASHONDA CALDWELL PHD 723.1 CERVICALGIA 01/21/2012 LASHONDA CALDWELL PHD 553.1 UMBILICAL HERNIA WITHOUT OBSTRUCTION OR GANGRENE 01/21/2012 LASHONDA CALDWELL PHD 723.1 CERVICALGIA 01/21/2012 WHITNEY CHAPMAN MD 553.1 UMBILICAL HERNIA WITHOUT OBSTRUCTION OR GANGRENE 01/21/2012 WHITNEY CHAPMAN MD 723.1 CERVICALGIA 01/21/2012 CARITO GANG MOWER OPERATOR, SAMMY S 553.1 UMBILICAL HERNIA WITHOUT OBSTRUCTION OR GANGRENE 01/21/2012 CARITO GANG MOWER OPERATOR, SAMMY S 723.1 CERVICALGIA 01/21/2012 WHITNEY CHAPMAN MD 553.1 UMBILICAL HERNIA WITHOUT OBSTRUCTION OR GANGRENE 01/21/2012 WHITNEY CHAPMAN MD 723.1 CERVICALGIA 01/21/2012 CARITO GANG MOWER OPERATOR, SAMMY S 553.1 UMBILICAL HERNIA WITHOUT OBSTRUCTION OR GANGRENE 01/21/2012 CARITO GANG MOWER OPERATOR, SAMMY S 723.1 CERVICALGIA 01/21/2012 CARITO GANG MOWER OPERATOR, SAMMY S 553.1 UMBILICAL HERNIA WITHOUT OBSTRUCTION OR GANGRENE 01/21/2012 CARITO GANG MOWER OPERATOR, SAMMY S 723.1 CERVICALGIA 01/21/2012 LASHONDA CALDWELL PHD 553.1 UMBILICAL HERNIA WITHOUT OBSTRUCTION OR GANGRENE 01/21/2012 LASHONDA CALDWELL PHD 723.1 CERVICALGIA 01/21/2012 PAULETTE JUARES LASHONDA A 553.1 UMBILICAL HERNIA WITHOUT OBSTRUCTION OR GANGRENE 01/21/2012 PAULETTE PHD, LASHONDA A 723.1 CERVICALGIA 01/21/2012 PAULETTE PHD, LASHONDA A 553.1 UMBILICAL HERNIA WITHOUT OBSTRUCTION OR GANGRENE 01/21/2012 PAULETTE PHD, LASHONDA A 723.1 CERVICALGIA 01/21/2012 CARITO DIOP, SAMMY S 553.1 UMBILICAL HERNIA WITHOUT OBSTRUCTION OR GANGRENE 01/21/2012 CARITO YANN, SAMMY S 723.1 CERVICALGIA 01/21/2012 PAULETET PHD, LASHONDA A 553.1 UMBILICAL HERNIA WITHOUT OBSTRUCTION OR GANGRENE 01/21/2012 PAULETTE PHD, LASHONDA A 723.1 CERVICALGIA 03/10/2012 CARITO DIOP, SAMMY S 552.1 UMBILICAL HERNIA WITH OBSTRUCTION 03/10/2012 CARITO DIOP, SAMMY S 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 03/10/2012 CARITO DIOP, SAMMY S 552.1 UMBILICAL HERNIA WITH OBSTRUCTION 03/10/2012 CARITO DIOP, SAMMY S 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 03/10/2012 CARITO DIOP, SAMMY S 552.1 UMBILICAL HERNIA WITH OBSTRUCTION 03/10/2012 CARITO DIOP, SAMMY S 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 03/10/2012 552.1 UMBILICAL HERNIA WITH OBSTRUCTION 03/10/2012 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 03/10/2012 552.1 UMBILICAL HERNIA WITH OBSTRUCTION 03/10/2012 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 03/10/2012 552.1 UMBILICAL HERNIA WITH OBSTRUCTION 03/10/2012 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 03/10/2012 552.1 UMBILICAL HERNIA WITH OBSTRUCTION 03/10/2012 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 03/10/2012 552.1 UMBILICAL HERNIA WITH OBSTRUCTION 03/10/2012 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 03/10/2012 CARITO DIOP, SAMMY S 552.1 UMBILICAL HERNIA WITH OBSTRUCTION 03/10/2012 CARITO DIOP, SAMMY S 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 03/10/2012 WHITNEY CHAPMAN MD 552.1 UMBILICAL HERNIA WITH OBSTRUCTION 03/10/2012 WHITNEY CHAPMAN MD 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 03/10/2012 CARITO GANG MOWER OPERATOR, SAMMY S 552.1 UMBILICAL HERNIA WITH OBSTRUCTION 03/10/2012 CARITO GANG MOWER OPERATOR, SAMMY S 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 03/10/2012 CARITO GANG MOWER OPERATOR, SAMMY S 552.1 UMBILICAL HERNIA WITH OBSTRUCTION 03/10/2012 CARITO GANG MOWER OPERATOR, SAMMY S 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 03/10/2012 EDITH MAHONEY, MICHAEL B 552.1 UMBILICAL HERNIA WITH OBSTRUCTION 03/10/2012 EDITH STAFF CONSULTANT, MICHAEL B 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 03/10/2012 LASHONDA CALDWELL PHD 552.1 UMBILICAL HERNIA WITH OBSTRUCTION 03/10/2012 LASHONDA CALDWELL PHD 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 03/10/2012 LASHONDA CALDWELL PHD 552.1 UMBILICAL HERNIA WITH OBSTRUCTION 03/10/2012 LASHONDA CALDWELL PHD 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 03/10/2012 WHITNEY CHAPMAN MD 552.1 UMBILICAL HERNIA WITH OBSTRUCTION 03/10/2012 WHITNEY CHAPMAN MD 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 03/10/2012 CARITO DIOP, SAMMY S 552.1 UMBILICAL HERNIA WITH OBSTRUCTION 03/10/2012 CARITO YANN, SAMMY S 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 03/10/2012 WHITNEY CHAPMAN MD 552.1 UMBILICAL HERNIA WITH OBSTRUCTION 03/10/2012 WHITNEY CHAPMAN MD 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 03/10/2012 CARITO YANN, SAMMY S 552.1 UMBILICAL HERNIA WITH OBSTRUCTION 03/10/2012 CARITO GANG MOWER OPERATOR, SAMMY S 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 03/10/2012 CARITO GANG MOWER OPERATOR, SAMMY S 552.1 UMBILICAL HERNIA WITH OBSTRUCTION 03/10/2012 CAIRTO GANG MOWER OPERATOR, SAMMY S 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 03/10/2012 LASHONDA CALDWELL PHD 552.1 UMBILICAL HERNIA WITH OBSTRUCTION 03/10/2012 LASHONDA CALDWELL PHD 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00 UNSPEC CONSTIPATION 06/01/2012 SAMMY ARZATE APRN S 300.00 ANXIETY STATE UNSPECIFIED 06/01/2012 SAMMY ARZATE APRN S V45.89 POSTSURGICAL STATUS 06/01/2012 SAMMY ARZATE APRN S 300.00 ANXIETY STATE UNSPECIFIED 06/01/2012 ADAMS ARZATE APRNA S V45.89 POSTSURGICAL STATUS 06/01/2012 300.00 ANXIETY STATE UNSPECIFIED 06/01/2012 V45.89 POSTSURGICAL STATUS 06/01/2012 300.00 ANXIETY STATE UNSPECIFIED 06/01/2012 V45.89 POSTSURGICAL STATUS 06/01/2012 300.00 ANXIETY STATE UNSPECIFIED 06/01/2012 V45.89 POSTSURGICAL STATUS 06/01/2012 300.00 ANXIETY STATE UNSPECIFIED 06/01/2012 V45.89 POSTSURGICAL STATUS 06/01/2012 300.00 ANXIETY STATE UNSPECIFIED 06/01/2012 V45.89 POSTSURGICAL STATUS 06/01/2012 SAMMY ARZATE APRN S 300.00 ANXIETY STATE UNSPECIFIED 06/01/2012 SAMMY ARZATE APRN S V45.89 POSTSURGICAL STATUS 06/01/2012 WHITNEY CHAPMAN MD 300.00 ANXIETY STATE UNSPECIFIED 06/01/2012 WHITNEY CHAPMAN MD V45.89 POSTSURGICAL STATUS 06/01/2012 SAMMY ARZATE APRN S 300.00 ANXIETY STATE UNSPECIFIED 06/01/2012 CARITO GANG MOWER OPERATOR, SAMMY S V45.89 POSTSURGICAL STATUS 06/01/2012 CARITO GANG MOWER OPERATOR, SAMMY S 300.00 ANXIETY STATE UNSPECIFIED 06/01/2012 CARITO GANG MOWER OPERATOR, SAMMY S V45.89 POSTSURGICAL STATUS 06/01/2012 EDITH STAFF CONSULTANT, MICHAEL B 300.00 ANXIETY STATE UNSPECIFIED 06/01/2012 EDITH STAFF CONSULTANT, MICHAEL B V45.89 POSTSURGICAL STATUS 06/01/2012 PAULETTE PHD, LASHONDA A 300.00 ANXIETY STATE UNSPECIFIED 06/01/2012 PAULETTE PHD, LASHONDA A V45.89 POSTSURGICAL STATUS 06/01/2012 PAULETTE PHD, LASHONDA A 300.00 ANXIETY STATE UNSPECIFIED 06/01/2012 PAULETTE PHD, LASHONDA A V45.89 POSTSURGICAL STATUS 06/01/2012 WHITNEY CHAPMAN MD 300.00 ANXIETY STATE UNSPECIFIED 06/01/2012 WHITNEY CHAPMAN MD V45.89 POSTSURGICAL STATUS 06/01/2012 CARITO GANG MOWER OPERATOR, SAMMY S 300.00 ANXIETY STATE UNSPECIFIED 06/01/2012 CARITO GANG MOWER OPERATOR, SAMMY S V45.89 POSTSURGICAL STATUS 06/01/2012 WHITNEY CHAPMAN MD 300.00 ANXIETY STATE UNSPECIFIED 06/01/2012 WHITNEY CHAPMAN MD V45.89 POSTSURGICAL STATUS 06/01/2012 CARITO GANG MOWER OPERATOR, SAMMY S 300.00 ANXIETY STATE UNSPECIFIED 06/01/2012 CARITO GANG MOWER OPERATOR, SAMMY S V45.89 POSTSURGICAL STATUS 06/01/2012 CARITO GANG MOWER OPERATOR, SAMMY S 300.00 ANXIETY STATE UNSPECIFIED 06/01/2012 CARITO GANG MOWER OPERATOR, SAMMY S V45.89 POSTSURGICAL STATUS 06/01/2012 PAULETTE JUARES, LASHONDA A 300.00 ANXIETY STATE UNSPECIFIED 06/01/2012 PAULETTE PHD, LASHONDA A V45.89 POSTSURGICAL STATUS 06/01/2012 PAULETTE PHD, LASHONDA A 300.00 ANXIETY STATE UNSPECIFIED 06/01/2012 PAULETTE JUARES, LASHONDA A V45.89 POSTSURGICAL STATUS 06/01/2012 PAULETTE JUARES, LASHONDA A 300.00 ANXIETY STATE UNSPECIFIED 06/01/2012 PAULETTE JUARES, LASHONDA A V45.89 POSTSURGICAL STATUS 06/01/2012 SAMMY ARZATE APRN 300.00 ANXIETY STATE UNSPECIFIED 06/01/2012 SAMMY ARZATE APRN V45.89 POSTSURGICAL STATUS 06/01/2012 LASHONDA CALDWELL PHD 300.00 ANXIETY STATE UNSPECIFIED 06/01/2012 LASHONDA CALDWELL PHD V45.89 POSTSURGICAL STATUS 09/02/2012 789.06 abdominal pain in the central upper belly (epigastric) 09/02/2012 789.06 abdominal pain in the central upper belly (epigastric) 09/02/2012 789.06 abdominal pain in the central upper belly (epigastric) 09/02/2012 789.06 abdominal pain in the central upper belly (epigastric) 09/02/2012 789.06 abdominal pain in the central upper belly (epigastric) 09/02/2012 SAMMY ARZATE APRN 789.06 abdominal pain in the central upper belly (epigastric) 09/02/2012 WHITNEY CHAPMAN MD 789.06 abdominal pain in the central upper belly (epigastric) 09/02/2012 SAMMY ARZATE APRN 789.06 abdominal pain in the central upper belly (epigastric) 09/02/2012 SAMMY ARZATE APRN 789.06 abdominal pain in the central upper belly (epigastric) 09/02/2012 MICHAEL SHARMA LCPC 789.06 abdominal pain in the central upper belly (epigastric) 09/02/2012 LASHONDA CALDWELL PHD 789.06 abdominal pain in the central upper belly (epigastric) 09/02/2012 LASHONDA CALDWELL PHD 789.06 abdominal pain in the central upper belly (epigastric) 09/02/2012 WHITNEY CHAPMAN MD 789.06 abdominal pain in the central upper belly (epigastric) 09/02/2012 SAMMY ARZATE APRN 789.06 abdominal pain in the central upper belly (epigastric) 09/02/2012 WHITNEY CHAPMAN MD 789.06 abdominal pain in the central upper belly (epigastric) 09/02/2012 CARITO GANG MOWER OPERATOR, SAMMY S 789.06 ABDOMINAL PAIN IN THE CENTRAL UPPER BELLY (EPIGASTRIC) 09/02/2012 CARITO DIOP, SAMMY S 789.06 ABDOMINAL PAIN IN THE CENTRAL UPPER BELLY (EPIGASTRIC) 09/02/2012 PAULETTE JUARES, LASHONDA A 789.06 ABDOMINAL PAIN IN THE CENTRAL UPPER BELLY (EPIGASTRIC) 09/02/2012 PAULETTE PHD, LASHONDA Chiu 789.06 ABDOMINAL PAIN IN THE CENTRAL UPPER BELLY (EPIGASTRIC) 09/02/2012 PAULETTE PHD, LASHONDA Chiu 789.06 ABDOMINAL PAIN IN THE CENTRAL UPPER BELLY (EPIGASTRIC) 09/02/2012 CARITO DIOP, SAMMY S 789.06 ABDOMINAL PAIN IN THE CENTRAL UPPER BELLY (EPIGASTRIC) 09/02/2012 PAULETTE JUARES, LASHONDA Chiu 789.06 ABDOMINAL PAIN IN THE CENTRAL UPPER BELLY (EPIGASTRIC) 10/27/2012 790.6 LFT (LIVER FUNCTION TEST) ABNORMAL 10/27/2012 790.6 LFT (LIVER FUNCTION TEST) ABNORMAL 10/27/2012 790.6 LFT (LIVER FUNCTION TEST) ABNORMAL 10/27/2012 SHRAVAN ARZATE APRNNDA S 790.6 LFT (LIVER FUNCTION TEST) ABNORMAL 10/27/2012 WHITNEY CHAPMAN MD 790.6 LFT (LIVER FUNCTION TEST) ABNORMAL 10/27/2012 CARITO DIOP, SAMMY S 790.6 LFT (LIVER FUNCTION TEST) ABNORMAL 10/27/2012 CARITO DIOP, SAMMY S 790.6 LFT (LIVER FUNCTION TEST) ABNORMAL 10/27/2012 MICHAEL SHARMA LCPC 790.6 LFT (LIVER FUNCTION TEST) ABNORMAL 10/27/2012 PAULETTE JUARES, LASHONDA Chiu 790.6 LFT (LIVER FUNCTION TEST) ABNORMAL 10/27/2012 PAULETTE JUARES, LASHONDA Chiu 790.6 LFT (LIVER FUNCTION TEST) ABNORMAL 10/27/2012 WHITNEY CHAPMAN MD 790.6 LFT (LIVER FUNCTION TEST) ABNORMAL 10/27/2012 ADAMS ARZATE APRNA S 790.6 LFT (LIVER FUNCTION TEST) ABNORMAL 10/27/2012 WHITNEY CHAPMAN MD 790.6 LFT (LIVER FUNCTION TEST) ABNORMAL 10/27/2012 CARITO GANG MOWER OPERATOR, SAMMY S 790.6 LFT (LIVER FUNCTION TEST) ABNORMAL 10/27/2012 CARITO YANN, SAMMY S 790.6 LFT (LIVER FUNCTION TEST) ABNORMAL 10/27/2012 PAULETTE JUARES, LASHONDA A 790.6 LFT (LIVER FUNCTION TEST) ABNORMAL 10/27/2012 PAULETTE JUARES, LASHONDA A 790.6 LFT (LIVER FUNCTION TEST) ABNORMAL 10/27/2012 PAULETTE PHD, LASHONDA A 790.6 LFT (LIVER FUNCTION TEST) ABNORMAL 10/27/2012 CARITO YANN, SAMMY S 790.6 LFT (LIVER FUNCTION TEST) ABNORMAL 10/27/2012 PAULETTE JUARES, LASHONDA A 790.6 LFT (LIVER FUNCTION TEST) ABNORMAL 11/24/2012 571.8 FATTY LIVER 11/24/2012 571.8 FATTY LIVER 11/24/2012 CARITO YANN, SAMMY S 571.8 FATTY LIVER 11/24/2012 ARI BURDICK, WHITNEY 571.8 FATTY LIVER 11/24/2012 CARITO YANN, SAMMY S 571.8 FATTY LIVER 11/24/2012 CARITO YANN, SAMMY S 571.8 FATTY LIVER 11/24/2012 MICHAEL SHARMA LCPC 571.8 FATTY LIVER 11/24/2012 PAULETTE PHD, LASHONDA A 571.8 FATTY LIVER 11/24/2012 PAULETTE PHD, LASHONDA A 571.8 FATTY LIVER 11/24/2012 ARI BURDICK, WHITNEY 571.8 FATTY LIVER 11/24/2012 CARITO YANN, SAMMY S 571.8 FATTY LIVER 11/24/2012 ARI BURDICK, WHITNEY 571.8 FATTY LIVER 11/24/2012 CARITO GANG MOWER OPERATOR, SAMMY S 571.8 FATTY LIVER 11/24/2012 CARITO YANN, SAMMY S 571.8 FATTY LIVER 11/24/2012 PAULETTE PHD, LASHONDA A 571.8 FATTY LIVER 11/24/2012 PAULETTE PHD, LASHONDA A 571.8 FATTY LIVER 11/24/2012 PAULETTE PHD, LASHONDA A 571.8 FATTY LIVER 11/24/2012 CARITO GANG MOWER OPERATOR, SAMMY S 571.8 FATTY LIVER 11/24/2012 PAULETTE PHD, LASHONDA Chiu 571.8 FATTY LIVER 01/12/2013 388.70 OTALGIA UNSPECIFIED 01/12/2013 CARITO GANG MOWER OPERATOR, SAMMY S 388.70 OTALGIA UNSPECIFIED 01/12/2013 ARI BURDICK, WHITNEY 388.70 OTALGIA UNSPECIFIED 01/12/2013 CARITO GANG MOWER OPERATOR, SAMMY S 388.70 OTALGIA UNSPECIFIED 01/12/2013 CARITO GANG MOWER OPERATOR, SAMMY S 388.70 OTALGIA UNSPECIFIED 01/12/[address] [facility], MICHAEL Baker 388.70 OTALGIA UNSPECIFIED 01/12/2013 PAULETTE PHD, LASHONDA Chiu 388.70 OTALGIA UNSPECIFIED 01/12/2013 PAULETTE PHD, LASHONDA Chiu 388.70 OTALGIA UNSPECIFIED 01/12/2013 ARI BURDICK, WHITNEY 388.70 OTALGIA UNSPECIFIED 01/12/2013 CARITO YANN, SAMMY S 388.70 OTALGIA UNSPECIFIED 01/12/2013 ARI BURDICK, WHITNEY 388.70 OTALGIA UNSPECIFIED 01/12/2013 CARITO YANN, SAMMY S 388.70 OTALGIA UNSPECIFIED 01/12/2013 CARITO DIOP, SAMMY S 388.70 OTALGIA UNSPECIFIED 01/12/2013 PAULETTE PHD, LASHONDA Chiu 388.70 OTALGIA UNSPECIFIED 01/12/2013 PAULETTE PHD, LASHONDA Chiu 388.70 OTALGIA UNSPECIFIED 01/12/2013 PAULETTE PHD, LASHONDA A 388.70 OTALGIA UNSPECIFIED 01/12/2013 CARITO DIOP, SAMMY S 388.70 OTALGIA UNSPECIFIED 01/12/2013 PAULETTE PHD, LASHONDA Chiu 388.70 OTALGIA UNSPECIFIED 01/27/2013 CARITO DIOP, SAMMY S 530.81 ESOPHAGEAL REFLUX 01/27/2013 CARITO DIOP, SAMMY S 786.50 UNSPECIFIED CHEST PAIN 01/27/2013 AIR BURDICK, WHITNEY 530.81 ESOPHAGEAL REFLUX 01/27/2013 ARI BURDICK, WHITNEY 786.50 UNSPECIFIED CHEST PAIN 01/27/2013 CARITO GANG MOWER OPERATOR, SAMMY S 530.81 ESOPHAGEAL REFLUX 01/27/2013 CARITO GANG MOWER OPERATOR, SAMMY S 786.50 UNSPECIFIED CHEST PAIN 01/27/2013 CARITO GANG MOWER OPERATOR, SAMMY S 530.81 ESOPHAGEAL REFLUX 01/27/2013 CARITO GANG MOWER OPERATOR, SAMMY S 786.50 UNSPECIFIED CHEST PAIN 01/27/2013 EDITH STAFF CONSULTANT, MICHAEL B 530.81 ESOPHAGEAL REFLUX 01/27/2013 EDITH STAFF CONSULTANT, MICHAEL B 786.50 UNSPECIFIED CHEST PAIN 01/27/2013 PAULETTE PHD, LASHONDA A 530.81 ESOPHAGEAL REFLUX 01/27/2013 PAULETTE PHD, LASHONDA A 786.50 UNSPECIFIED CHEST PAIN 01/27/2013 PAULETTE PHD, LASHONDA A 530.81 ESOPHAGEAL REFLUX 01/27/2013 PAULETTE PHD, LASHONDA A 786.50 UNSPECIFIED CHEST PAIN 01/27/2013 ARI BURDICK, WHITNEY 530.81 ESOPHAGEAL REFLUX 01/27/2013 ARI BURDICK, WHITNEY 786.50 UNSPECIFIED CHEST PAIN 01/27/2013 CARITO GANG MOWER OPERATOR, SAMMY S 530.81 ESOPHAGEAL REFLUX 01/27/2013 CARITO GANG MOWER OPERATOR, SAMMY S 786.50 UNSPECIFIED CHEST PAIN 01/27/2013 WHITNEY CHAPMAN MD 530.81 ESOPHAGEAL REFLUX 01/27/2013 ARI BURDICK, WHITNEY 786.50 UNSPECIFIED CHEST PAIN 01/27/2013 CARITO GANG MOWER OPERATOR, SAMMY S 530.81 ESOPHAGEAL REFLUX 01/27/2013 CARITO GANG MOWER OPERATOR, SAMMY S 786.50 UNSPECIFIED CHEST PAIN 01/27/2013 CARITO GANG MOWER OPERATOR, SAMMY S 530.81 ESOPHAGEAL REFLUX 01/27/2013 CARITO GANG MOWER OPERATOR, SAMMY S 786.50 UNSPECIFIED CHEST PAIN 01/27/2013 PAULETTE PHD, LASHONDA A 530.81 ESOPHAGEAL REFLUX 01/27/2013 PAULETTE PHD, LASHONDA A 786.50 UNSPECIFIED CHEST PAIN 01/27/2013 PAULETTE PHD, LASHONDA A 530.81 ESOPHAGEAL REFLUX 01/27/2013 PAULETTE PHD, LASHONDA A 786.50 UNSPECIFIED CHEST PAIN 01/27/2013 PAULETTE PHD, LASHONDA A 530.81 ESOPHAGEAL REFLUX 01/27/2013 PAULETTE PHD, LASHONDA A 786.50 UNSPECIFIED CHEST PAIN 01/27/2013 CARITO GANG MOWER OPERATOR, SAMMY S 530.81 ESOPHAGEAL REFLUX 01/27/2013 CARITO GANG MOWER OPERATOR, SAMMY S 786.50 UNSPECIFIED CHEST PAIN 01/27/2013 PAULETTE JUARES, LASHONDA Chiu 530.81 ESOPHAGEAL REFLUX 01/27/2013 PAULETTE UJARES, LASHONDA Chiu 786.50 UNSPECIFIED CHEST PAIN 02/16/2013 ANTONIO BURDICK, BUDDY Ely Ot 786.59 CHEST PAIN NEC 04/13/2013 ARISTIDES MAC GANG MOWER OPERATOR Ot 723.1 CERVICALGIA 05/24/2013 CARITO GANG MOWER OPERATOR, SAMMY S 553.3 HIATAL HERNIA 05/24/2013 CARITO GANG MOWER OPERATOR, SAMMY S V16.49 FAM HX CANCER (ANY SITE) 05/24/2013 CARITO GANG MOWER OPERATOR, SAMMY S 553.3 HIATAL HERNIA 05/24/2013 CARITO GANG MOWER OPERATOR, SAMMY S V16.49 FAM HX CANCER (ANY SITE) 05/24/2013 EDITH MAHONEY, MICHAEL B 553.3 HIATAL HERNIA 05/24/2013 EDITH STAFF CONSULTANT, MICHAEL B V16.49 FAM HX CANCER (ANY SITE) 05/24/2013 PAULETTE JUARES, LASHONDA A 553.3 HIATAL HERNIA 05/24/2013 PAULETTE JUARES, LASHONDA Chiu V16.49 FAM HX CANCER (ANY SITE) 05/24/2013 PAULETTE PHD, LASHONDA A 553.3 HIATAL HERNIA 05/24/2013 PAULETTE JUARES, LASHONDA A V16.49 FAM HX CANCER (ANY SITE) 05/24/2013 WHITNEY CHAPMAN MD 553.3 HIATAL HERNIA 05/24/2013 WHITNEY CHAPMAN MD V16.49 FAM HX CANCER (ANY SITE) 05/24/2013 CARITO GANG MOWER OPERATOR, SAMMY S 553.3 HIATAL HERNIA 05/24/2013 CARITO DIOP, SAMMY S V16.49 FAM HX CANCER (ANY SITE) 05/24/2013 WHITNEY CHAPMAN MD 553.3 HIATAL HERNIA 05/24/2013 WHITNEY CHAPMAN MD V16.49 FAM HX CANCER (ANY SITE) 05/24/2013 CARITO GANG MOWER OPERATOR, SAMMY S 553.3 HIATAL HERNIA 05/24/2013 CARITO DIOP, SAMMY S V16.49 FAM HX CANCER (ANY SITE) 05/24/2013 CARITO GANG MOWER OPERATOR, SAMMY S 553.3 HIATAL HERNIA 05/24/2013 CARITO DIOP, SAMMY S V16.49 FAM HX CANCER (ANY SITE) 05/24/2013 LASHONDA CALDWELL PHD 553.3 HIATAL HERNIA 05/24/2013 LASHONDA CALDWELL PHD V16.49 FAM HX CANCER (ANY SITE) 05/24/2013 PAULETTE JUARES, LASHONDA A 553.3 HIATAL HERNIA 05/24/2013 PAULETTE JUARES, LASHONDA Chiu V16.49 FAM HX CANCER (ANY SITE) 05/24/2013 PAULETTE JUARES, LASHONDA A 553.3 HIATAL HERNIA 05/24/2013 LASHONDA CALDWELL PHD V16.49 FAM HX CANCER (ANY SITE) 05/24/2013 SHRAVAN ARZATE APRNNDA S 553.3 HIATAL HERNIA 05/24/2013 SHRAVAN ARZATE APRNNDA S V16.49 FAM HX CANCER (ANY SITE) 05/24/2013 LASHONDA CALDWELL PHD 553.3 HIATAL HERNIA 05/24/2013 LASHONDA CALDWELL PHD V16.49 FAM HX CANCER (ANY SITE) 06/04/2013 CARITO DIOP SAMMY S V16.0 Family hx of colon cancer 06/04/2013 SHRAVAN ARZATE APRNNDA S V16.0 Family hx of colon cancer 06/04/2013 EDITH MAHONEY, MICHAEL Baker V16.0 Family hx of colon cancer 06/04/2013 PAULETTE PHD, LASHONDA Chiu V16.0 Family hx of colon cancer 06/04/2013 PAULETTE PHD, LASHONDA Chiu V16.0 Family hx of colon cancer 06/04/2013 WHITNEY CHAPMAN MD V16.0 Family hx of colon cancer 06/04/2013 CARITO DIOP SAMMY S V16.0 Family hx of colon cancer 06/04/2013 WHITNEY CHAPMAN MD V16.0 Family hx of colon cancer 06/04/2013 SHRAVAN ARZATE APRNNDA S V16.0 Family hx of colon cancer 06/04/2013 ADAMS ARZATE APRNA S V16.0 Family hx of colon cancer 06/04/2013 PAULETTE JUARES, LASHONDA Chiu V16.0 Family hx of colon cancer 06/04/2013 PAULETTE JUARES, LASHONDA Chiu V16.0 Family hx of colon cancer 06/04/2013 PAULETTE JUARES, LASHONDA Chiu V16.0 Family hx of colon cancer 06/04/2013 SAMMY ARZATE APRN S V16.0 Family hx of colon cancer 06/04/2013 PAULETTE JUARES, LASHONDA Chiu V16.0 Family hx of colon cancer 06/14/2013 ARISTIDES MAC GANG MOWER OPERATOR Ot 789.06 ABDOMINAL PAIN, EPIGASTRIC 07/26/2013 EDITH STAFF CONSULTANT, MICHAEL Baker 296.32 MO DEPRESSIVE RECURRENT MODERATE 07/26/2013 LASHONDA CALDWELL PHD 296.32 MO DEPRESSIVE RECURRENT MODERATE 07/26/2013 LASHONDA CALDWELL PHD 296.32 MO DEPRESSIVE RECURRENT MODERATE 07/26/2013 WHITNEY CHAPMAN MD 296.32 MO DEPRESSIVE RECURRENT MODERATE 07/26/2013 SAMMY ARZATE APRN S 296.32 MO DEPRESSIVE RECURRENT MODERATE 07/26/2013 WHITNEY CHAPMAN MD 296.32 MO DEPRESSIVE RECURRENT MODERATE 07/26/2013 SAMMY ARZATE APRN S 296.32 MO DEPRESSIVE RECURRENT MODERATE 07/26/2013 ADAMS ARZATE APRNA S 296.32 MO DEPRESSIVE RECURRENT MODERATE 07/26/2013 LASHONDA CALDWELL PHD 296.32 MO DEPRESSIVE RECURRENT MODERATE 07/26/2013 LASHONDA CALDWELL PHD 296.32 MO DEPRESSIVE RECURRENT MODERATE 07/26/2013 LASHONDA CALDWELL PHD 296.32 MO DEPRESSIVE RECURRENT MODERATE 07/26/2013 SAMMY ARZATE APRN S 296.32 MO DEPRESSIVE RECURRENT MODERATE 07/26/2013 LASHONDA CALDWELL PHD 296.32 MO DEPRESSIVE RECURRENT MODERATE 09/26/2013 ALONSO JOHNSON MD Ot 309.81 POSTTRAUMATIC STRESS DISORDER 09/26/2013 ALONSO JOHNSON MD Ot 553.3 DIAPHRAGMATIC HERNIA 09/26/2013 ALONSO JOHNSON MD Ot 562.10 DIVERTICULOSIS COLON (W/O MENT OF HEMORR 09/26/2013 ALONSO JOHNSON MD Ot 596.89 OTHER SPECIFIED DISORDERS OF BLADDER 09/26/2013 ELIZABETH BURDICK, ALONSO Bates Ot 716.90 ARTHROPATHY NOS-UNSPEC 10/01/2013 WHITNEY CHAPMAN MD Ot 038.9 SEPTICEMIA NOS 10/01/2013 WHITNEY CHAPMAN MD Ot 041.49 OTHER AND UNSPECIFIED ESCHERICHIA COLI [ 10/01/2013 WHITNEY CHAPMAN MD Ot 276.1 HYPOSMOLALITY 10/01/2013 WHITNEY CHAPMAN MD Ot 276.8 HYPOPOTASSEMIA 10/01/2013 WHITNEY CHAPMAN MD Ot 309.81 POSTTRAUMATIC STRESS DISORDER 10/01/2013 WHITNEY CHAPMAN MD Ot 493.90 ASTHMA, UNSPECIFIED 10/01/2013 WHITNEY CHAPMAN MD Ot 571.8 CHRONIC LIVER DIS NEC 10/01/2013 WHITNEY CHAPMAN MD Ot 599.0 URIN TRACT INFECTION NOS 10/01/2013 WHITNEY CHAPMAN MD Ot 786.09 RESPIRATORY ABNORM NEC 10/01/2013 WHITNEY CHAPMAN MD Ot 995.91 SEPSIS 10/15/2013 WHITNEY CHAPMAN MD Ot 038.42 E COLI SEPTICEMIA 10/15/2013 WHITNEY CHAPMAN MD Ot 309.81 POSTTRAUMATIC STRESS DISORDER 10/15/2013 WHITNEY CHAPMAN MD Ot 571.8 CHRONIC LIVER DIS NEC 10/15/2013 WHITNEY CHAPMAN MD Ot 599.0 URIN TRACT INFECTION NOS 10/15/2013 WHITNEY CHAPMAN MD Ot 600.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 10/15/2013 WHITNEY CHAPMAN MD Ot 788.20 RETENTION OF URINE NOS 10/15/2013 WHITNEY CHAPMAN MD Ot 995.91 SEPSIS 10/15/2013 WHITNEY CHAPMAN MD Ot V15.82 HISTORY OF TOBACCO USE 10/15/2013 JASMIN HOWE DO Ot 729.81 SWELLING OF LIMB 10/15/2013 JASMIN HOWE DO Ot 881.00 OPEN WOUND OF FOREARM 10/15/2013 JASMIN HOWE DO Ot E878.8 ABN REACT-SURG PROC NEC 11/15/2013 SAMMY ARZATE APRN S 789.07 ABDOMINAL PAIN GENERALIZED 11/15/2013 SAMMY ARZATE APRN S 790.29 OTHER ABNORMAL GLUCOSE 11/15/2013 CARITO GANG MOWER OPERATOR, SAMMY S V18.0 FAMILY HISTORY OF DIABETES MELLITUS 11/15/2013 WHITNEY CHAPMAN MD 789.07 ABDOMINAL PAIN GENERALIZED 11/15/2013 WHITNEY CHAPMAN MD 790.29 OTHER ABNORMAL GLUCOSE 11/15/2013 WHITNEY CHAPMAN MD V18.0 FAMILY HISTORY OF DIABETES MELLITUS 11/15/2013 CARITO GANG MOWER OPERATOR, SAMMY S 789.07 ABDOMINAL PAIN GENERALIZED 11/15/2013 CARITO GANG MOWER OPERATOR, SAMMY S 790.29 OTHER ABNORMAL GLUCOSE 11/15/2013 CARITO GANG MOWER OPERATOR, SAMMY S V18.0 FAMILY HISTORY OF DIABETES MELLITUS 11/15/2013 CARITO GANG MOWER OPERATOR, SAMMY S 789.07 ABDOMINAL PAIN GENERALIZED 11/15/2013 CARITO GANG MOWER OPERATOR, SAMMY S 790.29 OTHER ABNORMAL GLUCOSE 11/15/2013 CARITO GANG MOWER OPERATOR, SAMMY S V18.0 FAMILY HISTORY OF DIABETES MELLITUS 11/15/2013 PAULETTE PHD, LASHONDA A 789.07 ABDOMINAL PAIN GENERALIZED 11/15/2013 PAULETTE PHD, LASHONDA A 790.29 OTHER ABNORMAL GLUCOSE 11/15/2013 PAULETTE PHD, LASHONDA A V18.0 FAMILY HISTORY OF DIABETES MELLITUS 11/15/2013 PAULETTE PHD, LASHONDA A 789.07 ABDOMINAL PAIN GENERALIZED 11/15/2013 PAULETTE PHD, LASHONDA A 790.29 OTHER ABNORMAL GLUCOSE 11/15/2013 PAULETTE PHD, LASHONDA A V18.0 FAMILY HISTORY OF DIABETES MELLITUS 11/15/2013 PAULETTE PHD, LASHONDA A 789.07 ABDOMINAL PAIN GENERALIZED 11/15/2013 PAULETTE PHD, LASHONDA A 790.29 OTHER ABNORMAL GLUCOSE 11/15/2013 PAULETTE PHD, LASHONDA A V18.0 FAMILY HISTORY OF DIABETES MELLITUS 11/15/2013 CARITO GANG MOWER OPERATOR, SAMMY S 789.07 ABDOMINAL PAIN GENERALIZED 11/15/2013 CARITO GANG MOWER OPERATOR, SAMMY S 790.29 OTHER ABNORMAL GLUCOSE 11/15/2013 CARITO GANG MOWER OPERATOR, SAMMY S V18.0 FAMILY HISTORY OF DIABETES MELLITUS 11/15/2013 PAULETTE PHD, LASHONDA A 789.07 ABDOMINAL PAIN GENERALIZED 11/15/2013 PAULETTE PHD, LASHONDA A 790.29 OTHER ABNORMAL GLUCOSE 11/15/2013 [facility] PHD, LASHONDA A V18.0 FAMILY HISTORY OF DIABETES MELLITUS 12/30/2013 CARITO GANG MOWER OPERATOR, SAMMY S 724.2 LUMBAGO/ LOW BACK PAIN 12/30/2013 CARITO GANG MOWER OPERATOR, SAMMY S 729.2 NEURALGIA NEURITIS AND RADICULITIS UNSPECIFIED 12/30/2013 CARITO GANG MOWER OPERATOR, SAMMY S 789.03 ABDOMINAL PAIN RIGHT LOWER QUADRANT 12/30/2013 [facility] PHD, LASHONDA A 724.2 LUMBAGO/ LOW BACK PAIN 12/30/2013 [facility] PHD, LASHONDA A 729.2 NEURALGIA NEURITIS AND RADICULITIS UNSPECIFIED 12/30/2013 [facility] PHD, LASHONDA A 789.03 ABDOMINAL PAIN RIGHT LOWER QUADRANT 12/30/2013 [facility] PHD, LASHONDA A 724.2 LUMBAGO/ LOW BACK PAIN 12/30/2013 [facility] PHD, LASHONDA A 729.2 NEURALGIA NEURITIS AND RADICULITIS UNSPECIFIED 12/30/2013 [facility] PHD, LASHONDA A 789.03 ABDOMINAL PAIN RIGHT LOWER QUADRANT 12/30/2013 [facility] PHD, LASHONDA A 724.2 LUMBAGO/ LOW BACK PAIN 12/30/2013 [facility] PHD, LASHONDA A 729.2 NEURALGIA NEURITIS AND RADICULITIS UNSPECIFIED 12/30/2013 [facility] PHD, LASHONDA A 789.03 ABDOMINAL PAIN RIGHT LOWER QUADRANT 12/30/2013 CARITO GANG MOWER OPERATOR, SAMMY S 724.2 LUMBAGO/ LOW BACK PAIN 12/30/2013 CARITO GANG MOWER OPERATOR, SAMMY S 729.2 NEURALGIA NEURITIS AND RADICULITIS UNSPECIFIED 12/30/2013 CARITO GANG MOWER OPERATOR, SAMMY S 789.03 ABDOMINAL PAIN RIGHT LOWER QUADRANT 12/30/2013 [facility] PHD, LASHONDA A 724.2 LUMBAGO/ LOW BACK PAIN 12/30/2013 [facility] PHD, LASHONDA A 729.2 NEURALGIA NEURITIS AND RADICULITIS UNSPECIFIED 12/30/2013 [facility] PHD, LASHONDA A 789.03 ABDOMINAL PAIN RIGHT LOWER QUADRANT 01/14/2014 ARI BURDICK, WHITNEY Pickens Ot 599.0 URIN TRACT INFECTION NOS 05/12/2014 SRI MARTINEZ MD Ot 723.1 05/12/2014 SRI MARTINEZ MD Ot 724.2 05/12/2014 SRI MARTINEZ MD Ot V57.1 05/12/2014 SRI MARTINEZ MD Ot 723.1 05/12/2014 SRI MARTINEZ MD Ot 724.2 05/12/2014 SRI MARTINEZ MD Ot V57.1 05/20/2014 SRI MARTINEZ MD Ot 723.1 05/20/2014 SRI MARTINEZ MD Ot 724.2 05/20/2014 SRI MARTINEZ MD Ot V57.1 05/24/2014 SRI MARTINEZ MD Ot 723.1 05/24/2014 SRI MARTINEZ MD Ot 724.2 05/24/2014 SRI MARTINEZ MD Ot V57.1 05/24/2014 SRI MARTINEZ MD Ot 723.1 05/24/2014 SRI MARTINEZ MD Ot 724.2 05/24/2014 SRI MARTINEZ MD Ot V57.1 06/06/2014 SRI MARTINEZ MD Ot 723.1 06/06/2014 SIR MARTINEZ MD Ot 724.2 06/06/2014 SRI MARTINEZ MD Ot V57.1 06/06/2014 SRI MARTINEZ MD Ot 723.1 06/06/2014 SRI MARTINEZ MD Ot 724.2 06/06/2014 SRI MARTINEZ MD Ot V57.1 06/13/2014 SRI MARTINEZ MD Ot 723.1 06/13/2014 SRI MARTINEZ MD Ot 724.2 06/13/2014 SRI MARTINEZ MD Ot V57.1 06/17/2014 SRI MARTINEZ MD Ot 723.1 CERVICALGIA 06/17/2014 SRI MARTINEZ MD Ot 724.2 LUMBAGO 06/17/2014 SRI MARTINEZ MD Ot V57.1 PHYSICAL THERAPY NEC 08/14/2014 Ot 599.0 08/14/2014 SAVANNAH VALLE MD Ot 729.5 PAIN IN LIMB 08/14/2014 SAVANNAH VALLE MD Ot 813.05 FX RADIUS HEAD-CLOSED 08/14/2014 LEONARD BURDICK, SAVANNAH Amaro Ot 832.02 POST DISLOC ELBOW-CLOSED 08/14/2014 LEONARD BURDICK, SAVANNAH Amaro Ot E000.8 OTHER EXTERNAL CAUSE STATUS 08/14/2014 LEONARD BURDICK, SAAVNNAH Amaro Ot E885.9 FALL FROM SLIPPING, TRIPPING, OR STUMBLI 10/03/2014 ELDA BURDICK, TAN Armstrong Ot 832.02 10/03/2014 ELDA BURDICK, TAN Armstrong Ot E000.8 10/03/2014 ELDA BURDICK, TAN Armstrong Ot E885.9 10/03/2014 ELDA BURDICK, TAN Armstrong Ot V57.21 10/11/2014 ELDA BURDICK, TAN Armstrong Ot 832.02 10/11/2014 ELDA BURDICK, TAN Armstrong Ot E000.8 10/11/2014 ELDA BURDICK, TAN Armstrong Ot E885.9 10/11/2014 ELDA BURDICK, TAN Armstrong Ot V57.21 10/26/2014 ELDA BURDICK, TAN Armstrong Ot 832.02 10/26/2014 ELDA BURDICK, TAN Armstrong Ot E000.8 10/26/2014 ELDA BURDICK, TAN Armstrong Ot E885.9 10/26/2014 ELDA BURDICK, TAN Armstrong Ot V57.21 10/26/2014 ELDA BURDICK, TAN Armstrong Ot 832.02 10/26/2014 ELDA BURDICK, TAN Armstrong Ot E000.8 10/26/2014 ELDA BURDICK, TAN Armstrong Ot E885.9 10/26/2014 ELDA BURDICK, TAN Armstrong Ot V57.21 10/26/2014 ELDA BURDICK, TAN Armstrong Ot 832.02 10/26/2014 ELDA BURDICK, TAN Armstrong Ot E000.8 10/26/2014 ELDA BURDICK, TAN rAmstrong Ot E885.9 10/26/2014 ELDA BURDICK, TAN Armstrong Ot V57.21 10/26/2014 ELDA BURDICK, TAN Armstrong Ot 832.02 10/26/2014 ELDA BURDICK, TAN Armstrong Ot E000.8 10/26/2014 ELDA BURDICK, TAN Armstrong Ot E885.9 10/26/2014 ELDA BURDICK, TAN Armstrong Ot V57.21 11/04/2014 SAMMY ARZATE Ot 719.41 11/04/2014 ELDA BURDICK, TAN Armstrong Ot 832.02 11/04/2014 ELDA BURDICK, TAN Armstrong Ot E000.8 11/04/2014 ELDA BURDICK, TAN Armstrong Ot E885.9 11/04/2014 ELDA BURDICK, TAN Armstrong Ot V57.21 11/11/2014 ELDA BURDICK, TAN Armstrong Ot 832.02 11/11/2014 ELDA BURDICK, TAN Armstrong Ot E000.8 11/11/2014 ELDA BURDICK, TAN Armstrong Ot E885.9 11/11/2014 ELDA BURDICK, TAN Armstrong Ot V57.21 11/18/2014 MONY BURDICK, CHAU Kern Ot 789.00 11/18/2014 DAISY BURDICK, JW Ot 553.3 11/18/2014 DAISY BURDICK, JW Ot 787.20 11/18/2014 Ot 599.0 11/18/2014 ELDA BURDICK, TAN Armstrong Ot 832.02 11/18/2014 ELDA BURDICK, TAN Armstrong Ot E000.8 11/18/2014 ELDA BURDICK, TAN Armstrong Ot E885.9 11/18/2014 ELDA BURDICK, TAN Armstrong Ot V57.21 11/18/2014 SAMMY ARZATE Ot 719.41 11/18/2014 MONY BURDICK, CHAU Kern Ot 789.00 11/18/2014 DAISY BURDICK, JW Ot 553.3 11/18/2014 DAISY BURDICK, JW Ot 787.20 11/18/2014 Ot 599.0 11/18/2014 ELDA BURDICK, TAN Armstrong Ot 832.02 11/18/2014 ELDA BURDICK, TAN Armstrong Ot E000.8 11/18/2014 ELDA BURDICK, TAN Armstrong Ot E885.9 11/18/2014 ELDA BURDICK, TAN Armstrong Ot V57.21 11/18/2014 SAMMY ARZATE Ot 719.41 11/24/2014 AMELIA BURDICK, KRISTA De Paz Ot 726.0 11/24/2014 AMELIA BURDICK, KRISTA De Paz Ot V57.21 11/25/2014 SAMMY ARZATE Ot 719.41 11/28/2014 ELDA BURDICK, TAN Armstrong Ot 832.02 11/28/2014 ELDA BURDICK, TAN Armstrong Ot E000.8 11/28/2014 ELDA BURDICK, TAN Armstrong Ot E885.9 11/28/2014 ELDA BURDICK, TAN Armstrong Ot V57.21 11/28/2014 ELDA BURDICK, TAN Armstrong Ot 832.02 11/28/2014 ELDA BURDICK, TAN Armstrong Ot E000.8 11/28/2014 ELDA BURDICK, TAN Armstrong Ot E885.9 11/28/2014 ELDA BURDICK, TAN Armstrong Ot V57.21 11/28/2014 ELDA BURDICK, TAN Armstrong Ot 832.02 11/28/2014 ELDA BURDICK, TAN Armstrong Ot E000.8 11/28/2014 ELDA BURDICK, TAN Armstrong Ot E885.9 11/28/2014 ELDA BURDICK, TAN Armstrong Ot V57.21 11/29/2014 AMELIA BURDICK, KRISTA De Paz Ot 726.0 11/29/2014 AMELIA BURDICK, KRISTA De Paz Ot V57.21 11/29/2014 AMELIA BURDICK, KRISTA De Paz Ot 726.0 11/29/2014 AMELIA BURDICK, KRISTA De Paz Ot V57.21 11/29/2014 AMELIA BURDICK, KRISTA De Paz Ot 726.0 11/29/2014 AMELIA BURDICK, KRISTA De Paz Ot V57.21 2014 AMELIA BURDICK, RKISTA De Paz Ot 726.0 2014 AMELIA BURDICK, KRISTA De Paz Ot V57.21 12/06/2014 AMELIA BURDICK, KRISTA De Paz Ot 726.0 12/06/2014 AMELIA BURDICK, KRISTA De Paz Ot V57.21 12/09/2014 AMELIA BURDICK, KRISTA De Paz Ot 726.0 12/09/2014 AMELIA BURDICK, KRISTA De Paz Ot V57.21 12/09/2014 ELODIA BURDICK, RYLEE Ot 578.1 12/09/2014 ELODIA BURDICK, RYLEE Ot 787.91 12/15/2014 ELDA BURDICK, TAN Armstrong Ot 832.02 POST DISLOC ELBOW-CLOSED 12/15/2014 ELDA BURDICK, TAN Armstrong Ot E000.8 OTHER EXTERNAL CAUSE STATUS 12/15/2014 ELDA BURDICK, TAN Armstrong Ot E885.9 FALL FROM SLIPPING, TRIPPING, OR STUMBLI 12/15/2014 ELDA BURDICK, TAN Armstrong Ot V57.21 ENCOUNTER FOR OCCUPATIONAL THERAPY 12/29/2014 AMELIA BURDICK, KRISTA De Paz Ot 726.0 12/29/2014 AMELIA BURDICK, KRISTA De Paz Ot V57.21 12/29/2014 AMELIA BURDICK, KRISTA De Paz Ot 726.0 12/29/2014 AMELIA BURDICK, KRISTA De Paz Ot V57.21 01/10/2015 AMELIA BURDICK, KRISTA De Paz Ot 726.0 01/10/2015 AMELIA BURDICK, KRISTA De Paz Ot V57.21 01/11/2015 AMELIA BURDICK, KRISTA De Paz Ot 726.0 01/11/2015 AMELIA BURDICK, KRISTA De Paz Ot V57.21 01/25/2015 AMELIA BURDICK, KRISTA De Paz Ot 726.0 ADHESIVE CAPSULIT SHLDER 01/25/2015 AMELIA BURDICK, KRISTA De Paz Ot V57.21 ENCOUNTER FOR OCCUPATIONAL THERAPY 01/25/2015 ELODIA BURDICK, RYLEE Ot 578.1 BLOOD IN STOOL 01/25/2015 ELODIA BURDICK, RYLEE Ot 787.91 DIARRHEA 02/20/2015 AMELIA BURDICK, KRISTA De Paz Ot 726.0 02/20/2015 AMELIA BURDICK, KRISTA De Paz Ot V57.21 02/23/2015 AMELIA BURDICK, KRISTA De Paz Ot 726.0 02/23/2015 AMELIA BURDICK, KRISTA De Paz Ot V57.21 03/22/2015 AMELIA BURDICK, KRISTA De Paz Ot M75.02 ADHESIVE CAPSULITIS OF LEFT SHOULDER 10/11/2015 MONY BURDICK, CHAU Kern Ot 789.00 ABDOMINAL PAIN, UNSPECIFIED SITE 10/11/2015 DAISY BURDICK, JW Ot 553.3 DIAPHRAGMATIC HERNIA 10/11/2015 DAISY BURDICK, JW Ot 787.20 DYSPHAGIA, UNSPECIFIED 10/11/2015 Ot 599.0 URIN TRACT INFECTION NOS 10/11/2015 SAMMY ARZATE Ot 719.41 JOINT PAIN-SHLDER 10/12/2015 SAMMY ARZATE Ot M54.41 LUMBAGO WITH SCIATICA, RIGHT SIDE 10/13/2015 SAMMY ARZATE Ot M54.41 LUMBAGO WITH SCIATICA, RIGHT SIDE 10/24/2015 SAMMY ARZATE Ot M54.41 LUMBAGO WITH SCIATICA, RIGHT SIDE 11/07/2015 SAMMY ARZATE Ot M54.41 LUMBAGO WITH SCIATICA, RIGHT SIDE 01/17/2016 Ot R13.10 DYSPHAGIA, UNSPECIFIED 01/30/2016 Ot R13.10 DYSPHAGIA, UNSPECIFIED 08/01/2016 MONY BURDICK, CHAU Kern Ot 789.00 ABDOMINAL PAIN, UNSPECIFIED SITE 08/01/2016 DAISY BURDICK, JW Ot 553.3 DIAPHRAGMATIC HERNIA 08/01/2016 DAISY BURDICK, JW Ot 787.20 DYSPHAGIA, UNSPECIFIED 08/01/2016 Ot 599.0 URIN TRACT INFECTION NOS 08/01/2016 SAMMY ARZATE Ot 719.41 JOINT PAIN-SHLDER 08/01/2016 Ot R13.10 DYSPHAGIA, UNSPECIFIED 08/02/2016 BERBEL DO, MAURITIAN L Ot K76.0 FATTY (CHANGE OF) LIVER, NOT ELSEWHERE C 08/02/2016 BERBEL DO, MAURITIAN L Ot N32.9 BLADDER DISORDER, UNSPECIFIED 08/09/2016 BERBEL DO, MAURITIAN L Ot K76.0 FATTY (CHANGE OF) LIVER, NOT ELSEWHERE C 08/09/2016 BERBEL DO, MAURITIAN L Ot N32.9 BLADDER DISORDER, UNSPECIFIED 09/10/2016 BERBEL DO, MAURITIAN L Ot K76.0 FATTY (CHANGE OF) LIVER, NOT ELSEWHERE C 09/10/2016 BERBEL DO, MAURITIAN L Ot N32.9 BLADDER DISORDER, UNSPECIFIED 09/12/2016 BERBEL DO, MAURITIAN L Ot K76.0 FATTY (CHANGE OF) LIVER, NOT ELSEWHERE C 09/12/2016 BERBEL DO, MAURITIAN L Ot N32.9 BLADDER DISORDER, UNSPECIFIED 05/20/2018 DAISY BURDICK, JW Ot 553.3 DIAPHRAGMATIC HERNIA 05/20/2018 DAISY BURDICK, JW Ot 787.20 DYSPHAGIA, UNSPECIFIED 05/20/2018 Ot 599.0 URIN TRACT INFECTION NOS 05/20/2018 SAMMY ARZATE Ot 719.41 JOINT PAIN-SHLDER 05/20/2018 Ot R13.10 DYSPHAGIA, UNSPECIFIED 05/20/2018 JONAH CUEVAS DO L Ot K76.0 FATTY (CHANGE OF) LIVER, NOT ELSEWHERE C 05/20/2018 JONAH CUEVAS DO L Ot N32.9 BLADDER DISORDER, UNSPECIFIED 05/20/2018 SAMMY ARZATEP Ot M81.0 AGE-RELATED OSTEOPOROSIS W/O CURRENT PAT 05/20/2018 SAMMY ARZATE ENAMEL APPLIER Ot M81.0 AGE-RELATED OSTEOPOROSIS W/O CURRENT PAT 05/21/2018 DAISY BURDICK, JW Ot 553.3 DIAPHRAGMATIC HERNIA 05/21/2018 DAISY BURDICK, JW Ot 787.20 DYSPHAGIA, UNSPECIFIED 05/21/2018 Ot 599.0 URIN TRACT INFECTION NOS 05/21/2018 SAMMY ARZATE Ot 719.41 JOINT PAIN-SHLDER 05/21/2018 Ot R13.10 DYSPHAGIA, UNSPECIFIED 05/21/2018 MASON RIDER MAURITIAN L Ot K76.0 FATTY (CHANGE OF) LIVER, NOT ELSEWHERE C 05/21/2018 MASON RIDER, MAURITIAN L Ot N32.9 BLADDER DISORDER, UNSPECIFIED 05/21/2018 SAMMY ARZATE ENAMEL APPLIER Ot M81.0 AGE-RELATED OSTEOPOROSIS W/O CURRENT PAT 05/22/2018 SAMMY ARZATEP Ot M85.80 OTH DISRD OF BONE DENSITY AND STRUCTURE, 05/22/2018 SAMMY ARZATEP Ot Z85.038 PERSONAL HISTORY OF MALIGNANT NEOPLASM O 05/22/2018 SAMMY ARZATEP Ot Z91.89 OTH PERSONAL RISK FACTORS, NOT ELSEWHERE 05/22/2018 SAMMY ARZATE ENAMEL APPLIER Ot Z97.8 PRESENCE OF OTHER SPECIFIED DEVICES 05/27/2018 SAMMY ARZATEP Ot M85.80 OTH DISRD OF BONE DENSITY AND STRUCTURE, 05/27/2018 SAMMY ARZATEP Ot Z85.038 PERSONAL HISTORY OF MALIGNANT NEOPLASM O 05/27/2018 SAMMY ARZATE ENAMEL APPLIER Ot Z91.89 OTH PERSONAL RISK FACTORS, NOT ELSEWHERE 05/27/2018 SAMMY ARZATEP Ot Z97.8 PRESENCE OF OTHER SPECIFIED DEVICES 05/28/2018 SAMMY ARZATEP Ot M85.80 OTH DISRD OF BONE DENSITY AND STRUCTURE, 05/28/2018 SAMMY ARZATE Ot M85.88 OTH DISRD OF BONE DENSITY AND STRUCTURE, 05/28/2018 SAMMY ARZATE Ot Z85.038 PERSONAL HISTORY OF MALIGNANT NEOPLASM O 05/28/2018 SAMMY ARZATE Ot Z91.89 OTH PERSONAL RISK FACTORS, NOT ELSEWHERE 05/28/2018 SAMMY ARZATE Ot Z97.8 PRESENCE OF OTHER SPECIFIED DEVICES 06/16/2018 SAMMY ARZATE Ot M85.80 OTH DISRD OF BONE DENSITY AND STRUCTURE, 06/16/2018 SAMMY ARZATE Ot M85.88 OTH DISRD OF BONE DENSITY AND STRUCTURE, 06/16/2018 SAMMY ARZATE Ot Z85.038 PERSONAL HISTORY OF MALIGNANT NEOPLASM O 06/16/2018 SAMMY ARZATE Ot Z91.89 OTH PERSONAL RISK FACTORS, NOT ELSEWHERE 06/16/2018 SAMMY ARZATE Ot Z97.8 PRESENCE OF OTHER SPECIFIED DEVICES Procedures Code Description Performed By Performed On Urology [facility] 03/16/2012 Urology [facility], [facility] 03/16/2012 [id number] URINE DRUG SCREEN (IN-HOUSE) 07/14/2012 89420 ROUTINE VENIPUNCTURE 07/17/2012 47671 LIPID PANEL 07/17/2012 83198 ROUTINE VENIPUNCTURE 09/02/2012 55662 H PYLORI (IN-HOUSE) 09/02/2012 63478 CBC 09/03/2012 19540 CMP 09/03/2012 [id number] GFR CALC (RESULT ONLY) 09/03/2012 70291 LIPASE 09/03/2012 17756 ROUTINE VENIPUNCTURE 09/04/2012 04306 HEPATITIS PROFILE 09/04/[address] ABDOMEN & PELVIS W/O CONTRAST 09/07/2012 25108 ROUTINE VENIPUNCTURE 03/10/2013 17205 URINE DRUG SCREEN (IN-HOUSE) 03/10/2013 [id number] GFR CALC (RESULT ONLY) 03/10/2013 54938 CMP 03/10/2013 49206 LIPID PANEL 03/10/2013 38857 URINE DRUG SCREEN (IN-HOUSE) 07/08/2013 62781 PSYCH DIAGNOSTIC EVALUATION 07/27/2013 36247 PSYTX PT&/FAMILY 45 MINUTES 08/19/2013 88759 PSYTX PT&/FAMILY 45 MINUTES 09/08/2013 04428 ROUTINE VENIPUNCTURE 11/15/2013 45007 UA LONG DIP 11/15/2013 49221 A1C (IN-HOUSE) 11/15/2013 96841 URINE DRUG SCREEN (IN-HOUSE) 11/15/2013 [id number] GFR CALC (RESULT ONLY) 11/15/2013 20750 CMP 11/15/2013 66048 ROUTINE VENIPUNCTURE 11/30/2013 15163 LIPID PANEL 11/30/2013 89672 INSULIN LEVEL 11/30/2013 04140 PSYTX PT&/FAMILY 45 MINUTES 01/24/2014 00090 PSYTX PT&/FAMILY 45 MINUTES 03/07/2014 30170 PSYTX PT&/FAMILY 45 MINUTES 04/27/2014 Results Test Result Range Comp. Metabolic Panel (14) - 01/11/16 09:39 Glucose, Serum 111 mg/dL 65-99 BUN 11 mg/dL 8-27 Creatinine, Serum 0.94 mg/dL 0.76-1.27 eGFR If NonAfricn Am 85 mL/min/1.73 >59 eGFR If Africn Am 98 mL/min/1.73 >59 BUN/Creatinine Ratio 12 10-22 Sodium, Serum 140 mmol/L 134-144 Potassium, Serum 4.6 mmol/L 3.5-5.2 Chloride, Serum 99 mmol/L 97-108 Carbon Dioxide, Total 26 mmol/L 18-29 Calcium, Serum 8.4 mg/dL 8.6-10.2 Protein, Total, Serum 6.4 g/dL 6.0-8.5 Albumin, Serum 3.8 g/dL 3.6-4.8 Globulin, Total 2.6 g/dL 1.5-4.5 A/G Ratio 1.5 1.1-2.5 Bilirubin, Total 0.4 mg/dL 0.0-1.2 Alkaline Phosphatase, S 87 IU/L 39-117 AST (SGOT) 31 IU/L 0-40 ALT (SGPT) 17 IU/L 0-44 Lipid Panel - 01/11/16 09:39 Cholesterol, Total 85 mg/dL 100-199 Triglycerides 118 mg/dL 0-149 HDL Cholesterol 40 mg/dL >39 VLDL Cholesterol Suresh 24 mg/dL 5-40 LDL Cholesterol Calc 21 mg/dL 0-99 [id number] - 08/01/16 09:27 Serum or plasma urea nitrogen measurement (mass/volume) 11 mg/dL 7-18 Serum or plasma creatinine measurement (mass/volume) 0.91 mg/dL 0.60-1.30 Serum or plasma urea nitrogen/creatinine mass ratio 12 NRG Serum or plasma creatinine measurement with calculation of estimated glomerular filtration rate > NRG Comp. Metabolic Panel (14) - 12/24/16 08:27 Glucose, Serum 108 mg/dL 65-99 BUN 14 mg/dL 8-27 Creatinine, Serum 0.87 mg/dL 0.76-1.27 eGFR If NonAfricn Am 90 mL/min/1.73 >59 eGFR If Africn Am 104 mL/min/1.73 >59 BUN/Creatinine Ratio 16 10-24 Sodium, Serum 139 mmol/L 134-144 Potassium, Serum 4.1 mmol/L 3.5-5.2 Chloride, Serum 100 mmol/L 96-106 Carbon Dioxide, Total 28 mmol/L 18-29 Calcium, Serum 8.6 mg/dL 8.6-10.2 Protein, Total, Serum 6.3 g/dL 6.0-8.5 Albumin, Serum 3.5 g/dL 3.6-4.8 Globulin, Total 2.8 g/dL 1.5-4.5 A/G Ratio 1.3 1.2-2.2 Bilirubin, Total 0.5 mg/dL 0.0-1.2 Alkaline Phosphatase, S 73 IU/L 39-117 AST (SGOT) 34 IU/L 0-40 ALT (SGPT) 18 IU/L 0-44 Lipid Panel - 12/24/16 08:27 Cholesterol, Total 85 mg/dL 100-199 Triglycerides 27 mg/dL 0-149 HDL Cholesterol 51 mg/dL >39 VLDL Cholesterol Suresh 5 mg/dL 5-40 LDL Cholesterol Calc 29 mg/dL 0-99 CMP - 05/27/17 08:38 GLUCOSE 108 mg/dL 65-99 UREA NITROGEN (BUN) 14 mg/dL 7-25 CREATININE 1.01 mg/dL 0.70-1.25 eGFR NON-AFR. [place] 77 mL/min/1.73m2 > OR=60 eGFR 89 mL/min/1.73m2 > OR=60 BUN/CREATININE RATIO NOT APPLICABLE (calc) 6-22 SODIUM 140 mmol/L 135-146 POTASSIUM 4.7 mmol/L 3.5-5.3 CHLORIDE 103 mmol/L 98-110 CARBON DIOXIDE 32 mmol/L 20-31 CALCIUM 8.6 mg/dL 8.6-10.3 PROTEIN, TOTAL 6.5 g/dL 6.1-8.1 ALBUMIN 3.8 g/dL 3.6-5.1 GLOBULIN 2.7 g/dL (calc) 1.9-3.7 ALBUMIN/GLOBULIN RATIO 1.4 (calc) 1.0-2.5 BILIRUBIN, TOTAL 0.6 mg/dL 0.2-1.2 ALKALINE PHOSPHATASE 72 U/L 40-115 AST 25 U/L 10-35 ALT 18 U/L 9-46 HEPATITIS PROFILE - 09/24/17 14:08 HEPATITIS A IGM NON-REACTIVE NON-REACTIVE HEPATITIS B SURFACE ANTIGEN NON-REACTIVE NON-REACTIVE HEPATITIS B CORE ANTIBODY (IGM) NON-REACTIVE NON-REACTIVE HEPATITIS C ANTIBODY NON-REACTIVE NON-REACTIVE SIGNAL TO CUT-OFF 0.01 <1.00 PDM - 09 PANEL (PROFILE 1) - 02/02/18 11:01 Prescribed Drug 1 Xanax(TM) NRG Creatinine 169.0 mg/dL > or=20.0 pH 6.68 4.5 - 9.0 Oxidant NEGATIVE mcg/mL <200 Amphetamines NEGATIVE ng/mL <500 medMATCH Amphetamines CONSISTENT NRG Benzodiazepines POSITIVE ng/mL <100 Marijuana Metabolite NEGATIVE ng/mL <20 medMATCH Marijuana Metab CONSISTENT NRG Cocaine Metabolite NEGATIVE ng/mL <150 medMATCH Cocaine Metab CONSISTENT NRG Opiates NEGATIVE ng/mL <100 medMATCH Opiates CONSISTENT NRG Oxycodone POSITIVE ng/mL <100 COMMENT NRG Alphahydroxyalprazolam 201 ng/mL <25 medMATCH aOH alprazolam CONSISTENT NRG Alphahydroxymidazolam NEGATIVE ng/mL <50 medMATCH aOH midazolam CONSISTENT NRG Alphahydroxytriazolam NEGATIVE ng/mL <50 medMATCH aOH triazolam CONSISTENT NRG Aminoclonazepam NEGATIVE ng/mL <25 medMATCH Aminoclonazepam CONSISTENT NRG Hydroxyethylflurazepam NEGATIVE ng/mL <50 medMATCH OH,Et flurazepam CONSISTENT NRG Lorazepam NEGATIVE ng/mL <50 medMATCH Lorazepam CONSISTENT NRG Nordiazepam NEGATIVE ng/mL <50 medMATCH Nordiazepam CONSISTENT NRG Oxazepam NEGATIVE ng/mL <50 medMATCH Oxazepam CONSISTENT NRG Temazepam NEGATIVE ng/mL <50 medMATCH Temazepam CONSISTENT NRG Prescribed Drug 2 Oxycodone NRG Noroxycodone 1021 ng/mL <50 medMATCH Noroxycodone CONSISTENT NRG Oxycodone 215 ng/mL <50 medMATCH Oxycodone CONSISTENT NRG Oxymorphone 302 ng/mL <50 medMATCH Oxymorphone CONSISTENT NRG Barbiturates NEGATIVE ng/mL <300 medMATCH Barbiturates CONSISTENT NRG Methadone Metabolite NEGATIVE ng/mL <100 medMATCH Methadone Metab CONSISTENT NRG Phencyclidine NEGATIVE ng/mL <25 medMATCH Phencyclidine CONSISTENT NRG Complete blood count (CBC) with automated white blood cell (WBC) differential - 09/18/18 22:35 Blood leukocytes automated count (number/volume) 6.4 10*3/uL 4.3-11.0 Blood erythrocytes automated count (number/volume) 4.60 10*6/uL 4.35-5.85 Venous blood hemoglobin measurement (mass/volume) 13.4 g/dL 13.3-17.7 Blood hematocrit (volume fraction) 39 % 40-54 Automated erythrocyte mean corpuscular volume 84 [foz_us] 80-99 Automated erythrocyte mean corpuscular hemoglobin (mass per erythrocyte) 29 pg 25-34 Automated erythrocyte mean corpuscular hemoglobin concentration measurement (mass/volume) 35 g/dL 32-36 Automated erythrocyte distribution width ratio 13.1 % 10.0- 14.5 Automated blood platelet count (count/volume) 239 10*3/uL 130-400 Automated blood platelet mean volume measurement 10.1 [foz_us] 7.4-10.4 Automated blood neutrophils/100 leukocytes 52 % 42-75 Automated blood lymphocytes/100 leukocytes 36 % 12-44 Blood monocytes/100 leukocytes 10 % 0-12 Automated blood eosinophils/100 leukocytes 2 % 0-10 Automated blood basophils/100 leukocytes 0 % 0-10 Blood neutrophils automated count (number/volume) 3.3 10*3 1.8-7.8 Blood lymphocytes automated count (number/volume) 2.3 10*3 1.0-4.0 Blood monocytes automated count (number/volume) 0.6 10*3 0.0- 1.0 Automated eosinophil count 0.1 10*3/uL 0.0-0.3 Automated blood basophil count (count/volume) 0.0 10*3/uL 0.0-0.1 Comprehensive metabolic panel - 09/18/18 22:35 Serum or plasma sodium measurement (moles/volume) 141 mmol/L 135-145 Serum or plasma potassium measurement (moles/volume) 3.8 mmol/L 3.6-5.0 Serum or plasma chloride measurement (moles/volume) 105 mmol/L 98-107 Carbon dioxide 24 mmol/L 21-32 Serum or plasma anion gap determination (moles/volume) 12 mmol/L 5-14 Serum or plasma urea nitrogen measurement (mass/volume) 13 mg/dL 7-18 Serum or plasma creatinine measurement (mass/volume) 1.00 mg/dL 0.60-1.30 Serum or plasma urea nitrogen/creatinine mass ratio 13 NRG Serum or plasma creatinine measurement with calculation of estimated glomerular filtration rate > NRG Serum or plasma glucose measurement (mass/volume) 119 mg/dL 70-105 Serum or plasma calcium measurement (mass/volume) 9.0 mg/dL 8.5-10.1 Serum or plasma total bilirubin measurement (mass/volume) 0.3 mg/dL 0.1-1.0 Serum or plasma alkaline phosphatase measurement (enzymatic activity/volume) 75 U/L 40-136 Serum or plasma aspartate aminotransferase measurement (enzymatic activity/volume) 37 U/L 5-34 Serum or plasma alanine aminotransferase measurement (enzymatic activity/volume) 22 U/L 0-55 Serum or plasma protein measurement (mass/volume) 6.5 g/dL 6.4-8.2 Serum or plasma albumin measurement (mass/volume) 3.6 g/dL 3.2-4.5 CALCIUM CORRECTED 9.3 mg/dL 8.5-10.1 Serum or plasma C reactive protein measurement (mass/volume) - 09/18/18 22:35 Serum or plasma C reactive protein measurement (mass/volume) 0.34 mg/dL 0.00-0.50 Encounters ACCT No. Visit Date/Time Discharge Status Pt. Type Provider Facility Loc./Unit Complaint [id number] 07/14/2014 09:50:00 07/14/2014 23:59:59 CLS Outpatient LASHONDA CALDWELL PHD [id number] 04/27/2014 10:43:00 04/27/2014 23:59:59 CLS Outpatient SAMMY ARZATE APRN [id number] 04/26/2014 13:49:00 04/26/2014 23:59:59 CLS Outpatient LASHONDA CALDWELL PHD [id number] 03/07/2014 13:52:00 03/07/2014 23:59:59 CLS Outpatient LASHONDA CALDWELL PHD [id number] 01/24/2014 13:46:00 01/24/2014 23:59:59 CLS Outpatient LASHONDA CALDWELL PHD [id number] 12/30/2013 12:42:00 12/30/2013 23:59:59 CLS Outpatient SAMMY ARZATE APRN [id number] 11/30/2013 07:44:00 11/30/2013 23:59:59 CLS Outpatient SAMMY ARZATE APRN [id number] 11/15/2013 14:52:00 11/15/2013 23:59:59 CLS Outpatient WHITNEY CHAPMAN MD [id number] 11/15/2013 10:14:00 11/15/2013 23:59:59 CLS Outpatient SAMMY ARZATE APRN [id number] 11/04/2013 00:52:00 11/04/2013 23:59:59 CLS Outpatient WHITNEY CHAPMAN MD [id number] 09/07/2013 09:48:00 09/07/2013 23:59:59 CLS Outpatient LASHONDA CALDWELL PHD [id number] 08/18/2013 08:52:00 08/18/2013 23:59:59 CLS Outpatient LASHONDA CALDWELL PHD [id number] 07/26/2013 08:46:00 07/26/2013 23:59:59 CLS Outpatient MICHAEL SHARMA LCPC [id number] 07/08/2013 09:21:00 07/08/2013 23:59:59 CLS Outpatient SAMMY ARZATE APRN [id number] 05/24/2013 14:42:00 05/24/2013 23:59:59 CLS Outpatient SAMMY ARZATE APRN [id number] 03/10/2013 08:46:00 03/10/2013 23:59:59 CLS Outpatient WHITNEY CHAPMAN MD [id number] 01/27/2013 12:45:00 01/27/2013 23:59:59 CLS Outpatient HSRAVAN ARZATE APRNNDA S [id number] 07/17/2012 09:19:00 07/17/2012 23:59:59 CLS Outpatient CARITO GANG MOWER OPERATORSHRAVANSAMMY S [id number] 06/01/2012 11:49:00 06/01/2012 23:59:59 CLS Outpatient CARITO GANG MOWER OPERATOR, SAMMY S [id number] 03/16/2012 14:30:00 03/16/2012 23:59:59 CLS Outpatient CARITO GANG MOWER OPERATOR SAMMY S [id number] 03/16/2012 14:30:00 03/16/2012 23:59:59 CLS Outpatient CARITO YANNSHRAVANSAMMY S [id number] 01/12/2013 17:51:00 Document Registration [id number] 11/24/2012 10:44:00 Document Registration [id number] 10/27/2012 15:38:00 Document Registration [id number] 09/04/2012 10:13:00 Document Registration [id number] 09/02/2012 14:35:00 Document Registration [id number] 01/12/2016 08:06:00 Document Registration [id number] 12/25/2016 08:37:00 Document Registration [id number] 05/21/2018 07:32:00 05/21/2018 23:59:59 CLS Outpatient SAMMY ARZATE ENAMEL APPLIER [facility] RAD HIGH RISK FOR OSTEOPOROSIS [id number] 08/01/2016 09:17:00 08/01/2016 23:59:59 CLS Outpatient BERBEL DO, MAURITIAN L [facility] RAD R10.9 [id number] 10/11/2015 09:32:00 11/07/2015 15:24:00 DIS Outpatient SAMMY ARZATEP [facility] REHAB LUMBAGO W [place] [id number] 03/14/2015 10:19:00 03/22/2015 11:50:00 DIS Outpatient KRISTA CISNEROS MD [facility] REHAB FROZEN SHOULDER SYNDROME; L SHOULDER [id number] 01/25/2015 13:36:00 01/25/2015 00:01:00 DIS Outpatient KRISTA CISNEROS MD [facility] REHAB FROZEN SHOULDER SYNDROME; L SHOULDER [id number] 11/22/2014 10:14:00 01/25/2015 00:01:00 DIS Outpatient RYLEE CLIFTON MD [facility] LAB CRYPTOSPORIDUM [id number] 12/15/2014 10:23:00 12/15/2014 17:06:00 DIS Outpatient TAN SCHROEDER MD [facility] REHAB R ELBOW DISLOCATION [id number] 11/03/2014 09:51:00 11/03/2014 23:59:59 CLS Outpatient SAMMY ARZATE [facility] RAD RT SHOULDER PAIN [id number] 08/14/2014 04:36:00 08/14/2014 06:07:00 DIS Emergency SAVANNAH VALLE MD [facility] ER RT ARM PAIN [id number] 05/11/2014 09:19:00 05/11/2014 23:59:59 CLS Outpatient SRI MARTINEZ MD [facility] REHAB LUMBAGO,CERVICALGIA [id number] 03/21/2014 13:15:00 03/21/2014 23:59:59 CLS Preadmit SRI MARTINEZ MD [facility] RAD [id number] 10/20/2013 11:46:00 01/14/2014 00:01:00 DIS [facility]CURRENT [id number] 10/15/2013 20:11:00 10/15/2013 20:39:00 DIS Emergency JASMIN HOWE DO [facility] ER L ARM SWELLILNG [id number] 10/11/2013 13:35:00 10/15/2013 13:45:00 DIS Inpatient WHITNEY CHAPMAN MD [facility] 4TH UROSEPSIS PERSISTENT/RECURRENT [id number] 09/30/2013 09:23:00 10/01/2013 11:40:00 DIS Inpatient WHITNEY CHAPMAN MD F [facility] 4TH EUROSEPSIS [id number] 09/28/2013 14:41:00 09/28/2013 23:59:59 CLS Emergency [id number] 09/26/2013 07:20:00 09/26/2013 07:51:00 DIS Emergency ELIZABETH BURDICK, ALONSO Paulo [facility] ER URINARY ISSUES WITH CATH [id number] 08/02/2013 07:28:00 08/02/2013 23:59:59 CLS Outpatient JW VILLA MD [facility] RAD HIATAL HERNIA [id number] 06/14/2013 13:14:00 06/14/2013 15:37:00 DIS Emergency ARISTIDES MAC APRN [facility] ER UPPER ABD PAIN [id number] 04/13/2013 17:53:00 04/13/2013 20:13:00 DIS Emergency ARISTIDES MAC APRN [facility] ER NECK PAIN [id number] 02/16/2013 21:52:00 02/16/2013 23:32:00 DIS Emergency ANTONIO BURDICK, BUDDY Ely [facility] ER CHEST TIGHTNESS,SPITING BLOOD [id number] 11/02/2012 10:56:00 11/02/2012 23:59:59 CLS Outpatient CHAU SYKES MD [facility] RAD ABD PAIN IN CENTRAL UPPER BELLY [id number] 09/18/2018 22:13:00 ACT Emergency SAVANNAH VALLE MD [facility] ER DIZZINESS [id number] 01/04/2016 10:58:00 Document Registration [id number] 11/18/2014 08:50:00 Document Registration [id number] 01/15/2014 00:00:00 Document Registration [id number] 04/13/2012 12:15:00 Document Registration [id number] 02/02/2015 13:02:40 ACT Document Registration [id number] 06/08/2018 09:20:00 06/08/2018 23:59:59 CLS Outpatient SAMMY ARZATE APRN [facility] [id number] 02/02/2018 10:00:00 Document Registration [id number] 09/24/2017 14:00:00 Document Registration [id number] 05/27/2017 08:40:00 Document Registration
== END 2018-09-19 01:18 | disposition home or self-care (01) ==
LOC: EDUNIT# 22:12 → ER 22:13
DX: N39.0 Urinary tract infection, site not specified (principal); H92.02 Otalgia, left ear; R42 Dizziness and giddiness; K21.9 Gastro-esophageal reflux disease without esophagitis; F43.10 Post-traumatic stress disorder, unspecified; Z88.8 Allergy status to other drugs, medicaments and biological substances; Z87.891 Personal history of nicotine dependence; Z98.890 Other specified postprocedural states; Z87.448 Personal history of other diseases of urinary system; Z82.49 Family history of ischemic heart disease and other diseases of the circulatory system; Z87.19 Personal history of other diseases of the digestive system
CPT/HCPCS: 36415; 80053; 81000; 85025; 86141; 93005

== ENCOUNTER → 2020-07-04 | Outpatient (CLI) | payer MEDICARE, MEDICAID ==
[~2020-07-04] MED LIST changes: +CEFD300C3 PO
--- NOTE | 2020-07-04 08:59 | Diagnostic Imaging Report ---
INDICATION: Personal history of low bone mass, personal history of osteopenia long-term steroid use, fractured elbow. COMPARISON: 05/21/2018 FINDINGS: AP Spine L1-L4: [BMD (g/cm2): 1.175] [T-Score: -0.5] [Z-Score: -0.7] [BMD Previous: 1.174] [BMD % Change: 0.1] LT Hip Neck: [BMD (g/cm2): 1.037] [T-Score: -0.3] [Z-Score: 0.5] LT Hip Total: [BMD (g/cm2):1.126] [T-Score:0.2] [Z-Score: 0.4] [BMD Previous: 1.157] [BMD % Change: -2.7] RT Hip Neck: [BMD (g/cm2):0.970] [T-Score:-0.8] [Z-Score:-0.1] RT Hip Total: [BMD (g/cm2):1.112] [T-score:0.1] [Z-Score:0.3] [BMD Previous:1.157] [BMD % Change:-2.7] *Indicates significant change from prior examination based on 95% confidence level. World Health Organization criteria for BMD interpretation classify patients as Normal (T-score at or above -1.0), Osteopenic (T-score between -1.0 and -2.5) or Osteoporotic (T-score at or below -2.5). LIMITATIONS AND MODIFICATION: None. IMPRESSION: 1. Normal bone mineral density. 2. No significant change in bone mineral density since prior examination. 3. See below National Osteoporosis Foundation guidelines on when to potentially initiate pharmacologic therapy. Based on the National Osteoporosis Foundation Guidelines, pharmacologic treatment should be initiated in any of the following, unless clinical conditions suggest otherwise: * Any patient with prior fragility fracture of the hip or vertebrae. A spine fracture indicates 5X risk for subsequent spine fracture and 2X risk for subsequent hip fracture. * Osteoporosis (T-score <-2.5). * Postmenopausal women and men age 50 and older with low bone mass/osteopenia (T-score between -1.0 and -2.5) by DXA and 10-year major osteoporotic fracture greater than 20% or a 10-year probability of hip fracture greater than 3%. These fracture risks are supplied above in the FRAX score, if applicable. * Clinician judgement and/or patient preferences may indicate treatment for people with 10-year fracture probabilities above or below these levels. Dictated by: Dictated on workstation # [id number]
== END ==
LOC: RAD 09:00
PROVIDERS: ATTEND Nurse Practitioner Family
DX: M85.88 Other specified disorders of bone density and structure, other site (principal)
CPT/HCPCS: 77080